=== PATIENT | female | born 1955 | race Caucasian/White ===

== ENCOUNTER 2018-01-16 15:10 | Emergency (ER) | payer OTHER, SELFPAY ==
[2018-01-16 15:12] VITALS: BP 123/68; PULSE 97; RESP 16; TEMP 36.7; O2SAT 94; BMI 33.1
[2018-01-16 16:40] VITALS: BP 126/74; BP 127/67; BP 143/78; PULSE 103; PULSE 88; PULSE 91
[2018-01-16] MEDS: 0.9% Normal Saline 1,000 ML 1000 ML IV (16:48)
[2018-01-16 16:54] LABS: Absolute Lymphocyte Count 3.23 X10^3/ul (0.83-4.51); Absolute Neutrophil Count 5.1 X10^3/uL (2.0-7.7); Basophil# 0.09 X10^3/uL; Basophil% 0.9 % (0-1); Eosinophil# 0.33 X10^3/uL; Eosinophils% 3.2 % (0-5); Hematocrit 41.1 % (37-47); Hemoglobin 13.9 g/dl (12.0-15.0); Lymphocyte # 3.23 X10^3/ul (4.0); Lymphocyte % 31.6 % (19-41); Mean Corp Hgb Conc 33.8 g/gl (32-36); Mean Corpuscular Hgb 29.7 pg (27.0-32.0); Mean Corpuscular Volume 87.8 fL (81-99); Mean Platelet Vol. 9.7 fl (6.2-12.0); Monocyte# 1.49 X10^3/uL; Monocyte% 14.6 % (0-10); Neutrophil # 5.06 X10^3/uL (2.7-7.7); Neutrophil % 49.4 % (47-70); Platelet Count 205 K/mm3 (150-450); RBC Distribution Width CV 15.8 % (11.6-14.6); RBC Distribution Width SD 50.3 fl (35.1-43.9); Red Blood Count 4.68 M/mm3 (4.2-5.4); White Blood Count 10.2 K/mm3 (4.4-11.0)
[2018-01-16 16:55] LABS: POSITIVE COUNT NO; POSITIVE DIFFERENTIAL NO; POSITIVE MORPHOLOGY NO
[2018-01-16 17:05] LABS: AST(SGOT) 45 U/L (15-37); Alanine Aminotransfer ALT/SGPT 45 U/L (13-56); Albumin, Serum 3.3 g/dL (3.2-5.0); Alkaline Phosphatase 96 U/L (45-117); Anion Gap 11 (5-15); BUN 35 mg/dL (7-18); BUN/Creat Ratio 18.1 RATIO (10-20); Calcium,Total 8.8 mg/dL (8.5-10.1); Chloride 98 mmol/L (98-107); Creatinine, Serum 1.93 mg/dL (0.55-1.02); EST Glomerular Filtration Rate 28 mL/min (>60); Est Glom Filt Rate - Afr Amer 34 mL/min (>60); Estimated Creatinine Clearance 28.29 ml/min; Globulin 4.3 g/dL (2.2-4.2); Glucose 96 mg/dL (74-106); Lipase 174 U/L (73-393); Potassium 4.1 mmol/L (3.5-5.1); Protein, Total 7.6 g/dL (6.4-8.2); Sodium Level 132 mmol/L (136-145)
[2018-01-16 18:04] VITALS: BP 130/70; PULSE 89; RESP 16; O2SAT 100
[2018-01-16] MEDS: 0.9% Normal Saline 1,000 ML 150 ML IV (18:04)
[2018-01-16 18:06] LABS: Bacteria 0 SEEN /hpf (None Seen); Mucous, Urine 0 SEEN /hpf (<or=2+); White Blood Cells 0 SEEN /hpf (0-5)
[2018-01-16 18:13] LABS: Color, Urine Yellow (Yellow); Glucose, Dipstick Normal (Normal); Ketone-Dipstick Negative (Negative); Leukocyte Esterase-Dipstick Negative /ul (Negative); Nitrite-Dipstick Negative (Negative); Occult Blood-Urine 25 /ul (Negative); Protein-Dipstick 100 mg/dl (Negative); Urine Bilirubin Dipstick Negative (Negative); Urine Clarity Clear (Clear); Urine Urobilinogen Normal (Normal)
[2018-01-16 18:26] LABS: Red Blood Cells-Urine 0-5 SEEN /hpf (0-5); Squamous Epithelial Cells - UA 0-5 SEEN /hpf (5-10)
--- NOTE | 2018-01-16 19:09 | ED.RN ---
CALLED LAB, 45 MORE MIN FOR C-DIFF. ENTERIC WON'T BE BACK UNTIL LATE TONIGHT OR TOMORROW.
--- NOTE | 2018-01-16 20:09 | ED.RN ---
LAB CALLS WITH CRITICAL RESULT, C-DIFF POSITIVE, DR. MULLINS MADE AWARE.
--- NOTE | 2018-01-16 20:18 | ED.VISSUMM ---
- ER Visit Summary Date of Service: 01/16/18 Chief Complaint: Diarrhea History of Present Illness: The patient is a 62 F who presents with 4-1/2 days of diarrhea. She did have one vomiting episode. She is recently had a cookout and states that there were numerous people there with diarrhea. She has history of chronic kidney disease and arthritis. Patient states she has lost about 9 pounds. Denies any recent antibiotics. No fevers. Physical Examination: Afebrile vital signs are stable Gen: Well-nourished well-developed Head: Normocephalic atraumatic Eyes: Perrl EOMI ENT: TMs clear no rhinorrhea moist mucous membranes Neck: Supple no lymphadenopathy no JVD nontender CVS: Regular rate rhythm no murmurs normal S1-S2 Respiratory: No distress clear to auscultation bilaterally chest nontender Abdomen: Soft nontender nondistended normal bowel sounds no masses Back: Nontender Extremity: Nontender no edema Skin: Normal color no rash Neuro: alert orientated ?3 CN II-XII intact normal strength sensation reflexes gait cerebellar Psych: Normal affect normal mood Test Results: White count 10.2. BUN of 35 and creatinine 1.93. Lipase 174 urinalysis normal. C. difficile is positive. Emergency Department Course and Treatment: Patient received IV fluids. She is going to be started on vancomycin. Patient will isolate herself at home to frequent handwashing and use a private bathroom. Return if worsening or concerns. Impression: 1. C. difficile diarrhea 2. Mild dehydration This note was generated with [employer] dictation software. It may contain incorrect words, spelling, and punctuation that were not noted in review of the chart prior to signing ED Disposition - Plan for ED Patient: Disposition: Acute Care Hospital [facility] Chief Complaint: Diarrhea Instructions: Clostridium difficile Infection Prescriptions: Vancomycin [Vancocin] 125 mg PO Q6H 14 Days #56 cap Referrals: Jabier Arboleda DO [Primary Care Provider] - 1 Week
--- NOTE | 2018-01-16 20:24 | ED.DCSUM_ITS ---
- ER Visit Summary Date of Service: 01/16/18 Chief Complaint: Diarrhea History of Present Illness: The patient is a 62 F who presents with 4-1/2 days of diarrhea. She did have one vomiting episode. She is recently had a cookout and states that there were numerous people there with diarrhea. She has history of chronic kidney disease and arthritis. Patient states she has lost about 9 pounds. Denies any recent antibiotics. No fevers. Physical Examination: Afebrile vital signs are stable Gen: Well-nourished well-developed Head: Normocephalic atraumatic Eyes: Perrl EOMI ENT: TMs clear no rhinorrhea moist mucous membranes Neck: Supple no lymphadenopathy no JVD nontender CVS: Regular rate rhythm no murmurs normal S1-S2 Respiratory: No distress clear to auscultation bilaterally chest nontender Abdomen: Soft nontender nondistended normal bowel sounds no masses Back: Nontender Extremity: Nontender no edema Skin: Normal color no rash Neuro: alert orientated ?3 CN II-XII intact normal strength sensation reflexes gait cerebellar Psych: Normal affect normal mood Test Results: White count 10.2. BUN of 35 and creatinine 1.93. Lipase 174 urinalysis normal. C. difficile is positive. Emergency Department Course and Treatment: Patient received IV fluids. She is going to be started on vancomycin. Patient will isolate herself at home to frequent handwashing and use a private bathroom. Return if worsening or concerns. Impression: 1. C. difficile diarrhea 2. Mild dehydration This note was generated with [employer]we[employer] dictation software. It may contain incorrect words, spelling, and punctuation that were not noted in review of the chart prior to signing ED Disposition - Plan for ED Patient: Disposition: Acute Care Hospital [facility] Chief Complaint: Diarrhea Instructions: Clostridium difficile Infection Prescriptions: Vancomycin [Vancocin] 125 mg PO Q6H 14 Days #56 cap Referrals: Jabier Arboleda DO [Primary Care Provider] - 1 Week
[2018-01-16 20:45] VITALS: BP 130/70; BP 130/80; PULSE 72; PULSE 76; RESP 16; O2SAT 100
== END 2018-01-16 20:46 | disposition short-term general hospital (02) ==
PROVIDERS: Emergency Medicine; Emergency Provider Emergency Medicine; Family Provider Family Medicine; PCP Family Medicine
DX: A04.72 Enterocolitis due to Clostridium difficile, not specified as recurrent (principal); E86.0 Dehydration; N18.3 Chronic kidney disease, stage 3 (moderate); M19.90 Unspecified osteoarthritis, unspecified site; Z79.899 Other long term (current) drug therapy
CPT/HCPCS: 80048; 80076; 81001; 83690; 85025; 87493; 87506; 96360; 96361; 99284; J7030; A4216

== ENCOUNTER 2019-09-06 14:45 | Inpatient (IN) | payer OTHER, SELFPAY ==
[2019-09-06] VITALS (16 sets, daily range): BP systolic 133–176; BP diastolic 69–109; PULSE 82–95; RESP 12–19; TEMP 36.2–36.4; O2SAT 96–100; BMI 32.5; BMI 32.6; BMI 33.2
--- NOTE | 2019-09-06 15:06 | CT_ITS ---
We are attempting to reach an attending provider to discuss findings. An addendum with communication details will be sent when the communication is complete. STUDY: CT BRAIN WITHOUT CONTRAST REASON FOR EXAM: Female, 64 years old. FLU LIKE SYMPTOMS X 2 DAYS. ALTERED LEVEL OF CONSCIOUSNESS RADIATION DOSAGE (If Supplied By Facility): CTDIvol = ( 44.99 ) mGy, DLP = ( 796.11 ) mGycm TECHNIQUE: Transaxial CT imaging of the brain was performed without administration of intravenous contrast material. Individualized dose optimization techniques were used for this CT. COMPARISON: No relevant priors. FINDINGS: There is minimal subcutaneous air of the left and right cheek regions, medial right orbit, and bilateral frontal scalp. Normal calvarium. Normal size ventricles and extra-axial spaces for the patient''s age. There is minimal pneumocephaly in the region of the sella turcica and medial right temporal fossa. Normal white matter tracts of the cerebral hemispheres. Normal basal ganglia and thalami. Normal brainstem. Normal cerebellum. There is no intracranial hemorrhage. There are no findings of an acute ischemic infarction. Normal visualized paranasal sinuses. CT/Brain/Head without Contrast IMPRESSION: There is minimal pneumocephaly of the parasellar region bilaterally in the medial right temporal fossa. There is minimal subcutaneous air of the left and right cheek regions, and medial right orbit, and bilateral frontal scalp. Electronically Signed: Judd Cooper MD at 17:06 EST , Service support ,
--- NOTE | 2019-09-06 15:07 | EKG12_ITS ---
Test Reason : Blood Pressure : / mmHG Vent. Rate : 084 BPM Atrial Rate : 084 BPM P-R Int : 192 ms QRS Dur : 102 ms QT Int : 428 ms P-R-T Axes : 073 -20 105 degrees QTc Int : 505 ms Normal sinus rhythm Possible Left atrial enlargement Nonspecific T wave abnormality Prolonged QT Abnormal ECG Confirmed by RADHA LOZANO, TIMOTHY ([id number]), assignment editor WHIT GRAHAM ([id number]) on 09/10/2019 9:05:38 AM Referred By: Isabella Rolon Confirmed By:TIMOTHY GARCIA MD
--- NOTE | 2019-09-06 15:10 | RAD_ITS ---
STUDY: X-RAY CHEST REASON FOR EXAM: Female, 64 years old. ALTERED MENTAL STATUS TECHNIQUE: Single AP portable view of the chest. COMPARISON: None. FINDINGS: EKG electrodes are seen. There is evidence of vascular congestion and CHF. Bibasilar atelectasis more prominent on the right side with blunting of the costophrenic angles. There is mild cardiac enlargement. Normal mediastinum and christine. Normal visualized pulmonary arteries. Normal visualized aortic arch and descending thoracic aorta. There are diffuse degenerative changes of the visualized thoracic spine. Status post bilateral shoulder replacement. There is no demonstrated abnormality of the visualized soft tissue structures of the upper abdomen. RAD/Chest 1 View (Portable) IMPRESSION: Mild cardiomegaly with the findings in keeping with CHF and bibasilar atelectasis and small effusions worse on the right side. Electronically Signed: Pop Pimentel, at 15:24 EST , Service support ,
--- NOTE | 2019-09-06 15:11 | ED.VISSUMM ---
- ER Visit Summary Date of Service: 09/06/19 Chief Complaint: [Weakness and mental status change] History of Present Illness: The patient is a 64 F [patient presents with complaint of generalized weakness and mental status change since this morning. Patient started yesterday with diarrhea. She was describing some abdominal discomfort yesterday. Patient does have history of C. difficile. Most of the history comes from her as she really does not give much in the way history. She denies any chest pain or abdominal pain. She denies any pain anywhere. She is not complained of urinary symptoms. Patient does have history of rheumatoid arthritis. Patient apparently does take narcotic pain medications and has had similar mental status change in the past that required Narcan. does not know if she took extra medication. Patient has had a slight cough.] Physical Examination: [HEENT-PERRLA, EOMI. Cranial nerves II through XII grossly intact. TMs clear. Mucous membranes moist. No adenopathy. Patient does open her eyes to voice and follows some simple commands. Cardiovascular-regular rate and rhythm without murmur or ectopy Lungs-clear to auscultation, chest wall stable without crepitus or subcu emphysema Abdomen-normoactive bowel sounds, soft, nontender, no rebound or rigidity, no peritoneal signs. Extremities-intact ?4, normal range of motion, normal pulses, atraumatic Test Results: [EKG obtained on arrival showed a sinus rhythm with a ventricular rate of 84 bpm with some nonspecific ST changes noted. No old EKGs available for comparison. CBC with differential showed an elevated white count of 27,000, hemoglobin 12, hematocrit 36, platelets 434. Chemistries unremarkable. BUN was 63 and creatinine 2.34. Lactate was 0.9. Troponin was 0.371. LFTs unremarkable. Chest x-ray showed some CHF otherwise nothing acute. The brain without contrast on my interpretation I do not appreciate any hemorrhage or anything acute however official report pending.] Emergency Department Course and Treatment: [She was given a 500 cc fluid bolus. Patient was given normal saline at 150 cc an hour. Was given 40 mEq of potassium chloride IV.] Treatment Plan: [Admit as etiology of leukocytosis unclear although I suspect it may be related to her diarrhea and possibility for C. difficile exist.] Disposition: [Admit] Impression: [Hyponatremia Mental status change Diarrhea Acute kidney injury] This note was generated with Dragon dictation software. It may contain incorrect words, spelling, and punctuation that were not noted in review of the chart prior to signing ED Disposition - Plan for ED Patient: Referrals: Jabier Arboleda DO [Primary Care Provider] -
[2019-09-06 16:06] LABS: Bedside Glucose 143 mg/dL (70-110)
[2019-09-06] MEDS: 0.9% Normal Saline 1,000 ML 150 ML IV ×2 (16:19→18:34)
[2019-09-06 16:28] LABS: Absolute Lymphocyte Count 0.84 X10^3/uL (0.83-4.51); Absolute Neutrophil Count 25.9 X10^3/uL (2.0-7.7); Basophil# 0.04 X10^3/uL; Basophil% 0.1 % (0-1); Hemoglobin 11.9 g/dL (12.0-15.0); Lymphocyte # 0.84 X10^3/ul (4.0); Lymphocyte % 3.1 % (19-41); Mean Corp Hgb Conc 33.1 g/dL (32-36); Mean Corpuscular Hgb 24.8 pg (27.0-32.0); Mean Corpuscular Volume 75.2 fL (81-99); Mean Platelet Vol. 9.1 fl (6.2-12.0); Monocyte# 0.59 X10^3/uL; Monocyte% 2.1 % (0-10); NRBC Flagged by Analyzer 0 % (0-5); Neutrophil # 25.88 X10^3/uL (2.7-7.7); Neutrophil % 94.2 % (47-70); POSITIVE DIFFERENTIAL YES; Platelet Count 434 K/mm3 (150-450); RBC Distribution Width CV 16.6 % (11.6-14.6); RBC Distribution Width SD 45.2 fl (35.1-43.9); Red Blood Count 4.79 M/mm3 (4.2-5.4); White Blood Count 27.5 K/mm3 (4.4-11.0)
[2019-09-06 16:39] LABS: Mucous, Urine 0 SEEN /hpf (<or=2+)
[2019-09-06 16:44] LABS: Color, Urine Yellow (Yellow); Glucose, Dipstick 50 mg/dl (Normal); Ketone-Dipstick Negative (Negative); Leukocyte Esterase-Dipstick Negative /ul (Negative); Nitrite-Dipstick Negative (Negative); Occult Blood-Urine 25 /ul (Negative); Protein-Dipstick 500 mg/dl (Negative); Specific Gravity, Urine 1.015 (1.002-1.030); Urine Bilirubin Dipstick Negative (Negative); Urine Clarity Clear (Clear); Urine Urobilinogen Normal (Normal); Urine pH 6.5 (5.0 - 8.0)
[2019-09-06 16:45] LABS: Differential Indicated SCAN CRITERIA MET
[2019-09-06 16:49] LABS: ALB/GLOB Ratio 0.3 RATIO (0.9-2.4); AST(SGOT) 26 U/L (15-37); Alanine Aminotransfer ALT/SGPT 19 U/L (13-56); Albumin, Serum 1.7 g/dL (3.2-5.0); Alkaline Phosphatase 123 U/L (45-117); Anion Gap 12 (5-15); BUN 63 mg/dL (7-18); BUN/Creat Ratio 26.9 RATIO (10-20); Calcium,Total 9.1 mg/dL (8.5-10.1); Chloride 84 mmol/L (98-107); Creatinine, Serum 2.34 mg/dL (0.55-1.02); EST Glomerular Filtration Rate 22 mL/min (>60); Est Glom Filt Rate - Afr Amer 27 mL/min (>60); Estimated Creatinine Clearance 23.62 ml/min; Globulin 4.9 g/dL (2.2-4.2); Glucose 128 mg/dL (74-106); Lactic Acid 0.9 mmol/L (0.4-1.9); Potassium 3.2 mmol/L (3.5-5.1); Protein, Total 6.6 g/dL (6.4-8.2); Sodium Level 116 mmol/L (136-145)
[2019-09-06 16:49] LABS: Anisocytosis RARE; Microcytosis RARE; Platelet Estimate SLT INC (ADEQ)
[2019-09-06 16:52] LABS: Amorphous Sediment 1+; Bacteria 1+ /hpf (None Seen); Red Blood Cells-Urine 0-5 SEEN /hpf (0-5); Squamous Epithelial Cells - UA 0-5 SEEN /hpf (5-10); White Blood Cells 0-5 SEEN /hpf (0-5)
--- NOTE | 2019-09-06 17:04 | HP.PCM_ITS ---
History of Present Illness Date of Admission: 09/06/19 Chief Complaint: altered mental status The patient is a 64 year old [employer] F with a past medical history of hypertension and CKD. She was admitted through the ED on 09/06/2019 with a complaint of altered mental status. History was mainly taken from as patient was not communicative. states patient started having diarrhea 1 day prior to admission. Diarrhea was quite profuse but had stopped by the day of admission. He noticed on the day of admission the patient was very confused and not her normal self and was not very responsive when spoken to even though she was alert. He denied having any fever or chills no any nausea vomiting. He noted that she had been coughing but it was nonproductive. He states that his daughters and sons in law have had a similar diarrhea condition and he thought it was due to the flu. Patient has had C. difficile in the past which was successfully treated. He denied any using any antibiotics recently he denied her complaining of any headache or neck pain recently. He did not/had not been eating and drinking well. In the ED, temperature was 97.5 Fahrenheit with blood pressure of 143/85, pulse rate of 93 respiratory rate of 16. She was saturating at 100% on room air. Sodium was 116 and potassium was 3.2 with bicarb of 20. Creatinine was 2.34 and lactic acid was 0.9. Initial troponin was 0.371 and ALP was 123. CBC showed white cell count of 27.5 a hemoglobin of 11.9 with platelets of 434. Chest x-ray showed mild cardiomegaly with findings in keeping with CHF and bibasilar atelectasis and small effusions worse on the right side. CT of the brain done showed minimal pneumonia Cefaly of the parasellar region bilaterally in the medial right temporal fossa with minimal subcutaneous air of the left and right cheek regions and medial right orbit and bilateral frontal scalp. She has been admitted to be managed for acute metabolic encephalopathy, hyponatremia, elevated troponin and KHUSHBOO on CKD. [] Past Medical History Allergies No Known Allergies Allergy (Verified 09/06/19 14:51) Home Medications: Ambulatory Orders Medication Instructions Recorded ALPRAZolam [Xanax] 1 mg PO TID PRN PRN 01/16/18 Amitriptyline HCl [Elavil] 10 mg PO QHS 01/16/18 Baclofen [Lioresal] 10 mg PO 4X/DAY 01/16/18 Etanercept [Enbrel] 50 mg SQ Q7D 01/16/18 Ferrous Gluconate [Iron] 1 tab PO TID 01/16/18 Fluoxetine [Prozac] 20 mg PO DAILY 01/16/18 Prednisone 2.5 mg PO BID 01/16/18 traMADol [Ultram (G)] 50 mg PO Q6H PRN PRN 01/16/18 Losartan Potassium [Cozaar] 25 mg PO DAILY 09/06/19 Oxycodone HCl 5 mg PO Q6H PRN PRN 09/06/19 Psychiatric History: No pertinent psych hx BREAK OUT MAN History: No pertinent BREAK OUT MAN history Lives: Spouse/ Significant Other Smoking Status: Never smoker Tobacco Use: Non-smoker - *Family History Maternal History Items: No pertinent history Paternal History Items: No pertinent history Review of Systems Constitutional: Reports: Anorexia, Malaise, Weakness, Fatigue. Denies: Chills, Fever Eyes: Denies: Blurred vision HEENT: Denies: Head Aches, Sinus Congestion, Sinus Drainage Cardiovascular: Denies: Chest Pain, Chest Pressure, Edema, Orthopnea Respiratory: Reports: Cough. Denies: Pleuritic Pain, Shortness of Breath, Shortness of breath upon exertion, Sputum production, Wheezing Gastrointestinal: Reports: Diarrhea. Denies: Abdominal Pain, Nausea, Vomiting Genitourinary: Denies: Dysuria Musculoskeletal: Denies: Joint Pain, Joint Tenderness Skin: Denies: Rash, Wounds Neurological: Reports: Confusion Hematologic/ Lymphatic: Denies: Easy Bruising, Easy Bleeding VTE Information - Inpt Only VTE Present on Admission: No VTE Pharm Prophylaxis ordered?: Yes - Physical Exam Vitals/I&O's: Vital Signs Temp Pulse Resp BP Pulse Ox 97.6 F L 90 18 150/83 H 98 09/06/19 16:31 09/06/19 16:31 09/06/19 16:31 09/06/19 16:31 09/06/19 16:31 Oxygen Delivery Method Room Air Weight: 208 lb 1.862 oz Body Mass Index (BMI) 32.5 Finger Stick Blood Glucose 143 General: Confused, Disoriented, Lethargic, Non-Cooperative HEENT: Atraumatic, PERRLA, EOMI, Normocephalic Oral: Dry Mucosa Neck: Supple, No JVD, Negative Carotid Bruits Lungs: Clear to auscultation, Normal air movement, No rhonchi, No wheeze, No rales Cardiovascular: Regular rate, Regular Rhythm, Normal S1, Normal S2, No murmurs Abdomen: Bowel Sounds Present, Soft, Non Tender, Non-Distended, No Hepato- splenomegaly Extremities: No clubbing, No cyanosis, No edema, Capillary Refill Less than 3 Seconds Skin: No rashes, No breakdown Musculoskeletal: No Tenderness to Palpation of Joints or Extremities Lymphatic: No Cervical, Supraclavicular, or Inguinal Adenopathy Neurological: Cranial nerves II-XII grossly intact, - - patient alert, confused, doesnt answer questions when asked. Kernig's and Brudzinski's signs are negative; moves all limbs spontaneously. Pupils equal and reactive to light. Microbiology Past 72 Hours 09/06/19 16:13 Mucosa - Nasopharyngeal Influenza Types A,B Direct FA (ANA) - Final Laboratory Results 09/06/19 16:00: WBC 27.5 H, RBC 4.79, Hgb 11.9 L, Hct 36.0 L, MCV 75.2 L, MCH 24.8 L, MCHC 33.1, RDW Std Deviation 45.2 H, RDW Coeff of Mika 16.6 H, Plt Count 434, MPV 9.1, Immature Gran % (Auto) 0.500, Neut % (Auto) 94.2 H, Lymph % (Auto) 3.1 L, Barbour % (Auto) 2.1, Eos % (Auto) 0.0, Baso % (Auto) 0.1, Absolute Neuts (auto) 25.9 H, Absolute Lymphs (auto) 0.84, Nucleated RBC % 0, Differential Comment SEE COMMENT, Diff Path Review May geovanna, Platelet Estimate SLT INC, Anisocytosis RARE, Microcytosis RARE 09/06/19 16:01: POC Glucose 143 H 09/06/19 16:09: Sodium 116 L*, Potassium 3.2 L, Chloride 84 L, Carbon Dioxide 20.0 L, Anion Gap 12, BUN 63 H, Creatinine 2.34 H, Estim Creat Clear Calc 23.62, Est GFR (MDRD) Af Amer 27 L, Est GFR (MDRD) Non-Af 22 L, BUN/Creatinine Ratio 26.9 H, Glucose 128 H, Calcium 9.1, Total Bilirubin 0.60, AST 26, ALT 19, Alkaline Phosphatase 123 H, Troponin I 0.371 H, Total Protein 6.6, Albumin 1.7 L , Globulin 4.9 H, Albumin/Globulin Ratio 0.3 L 09/06/19 16:09: Lactic Acid 0.9 09/06/19 16:33: Urine Color Yellow, Urine Clarity Clear, Urine pH 6.5, Ur Specific [place] 1.015, Urine Protein 500 H, Urine Glucose (UA) 50 H, Urine Ketones Negative, Urine Occult Blood 25 H, Urine Nitrite Negative, Urine Bilirubin Negative, Urine Urobilinogen Normal, Ur Leukocyte Esterase Negative, U rine RBC 0-5 SEEN, Urine WBC 0-5 SEEN, Ur Squamous Epith Cells 0-5 SEEN, Amorphous Sediment 1+, Urine Bacteria 1+, Urine Mucus 0 SEEN Diagnostic Data Brain CT 09/06/19 15:06 IMPRESSION: There is minimal pneumocephaly of the parasellar region bilaterally in the medial right temporal fossa. There is minimal subcutaneous air of the left and right cheek regions, and medial right orbit, and bilateral frontal scalp. Electronically Signed: Judd Cooper MD at 17:06 EST , Service support , ADDENDUM: 09/06/19 1724 IMPRESSION: There is minimal pneumocephaly of the parasellar region bilaterally in the medial right temporal fossa. There is minimal subcutaneous air of the left and right cheek regions, and medial right orbit, and bilateral frontal scalp. N.B. : The above information has been verbally conveyed by Judd Cooper MD to Jurgen Stephenson MD, , on 09/06/2019 17:17:29 (ET). Electronically Signed: Judd Cooper MD at 17:06 EST , Service support , Chest X-Ray 09/06/19 15:10 IMPRESSION: Mild cardiomegaly with the findings in keeping with CHF and bibasilar atelectasis and small effusions worse on the right side. Electronically Signed: Pop Pimentel, at 15:24 EST , Service support , Current Medications Sodium Chloride () 1,000 mls @ 150 mls/hr IV .Q6H40M [facility] Last Admin: 09/06/19 16:19 Dose: 150 mls/hr Documented by: Potassium Chloride () 10 meq in 100 mls @ 100 mls/hr IV BOLUS Q1H [facility] Stop: 09/06/19 20:59 Assessment/Plan 64 y/o admitted with a complaint of altered mental status 1. Acute metabolic encephalopathy * differentials include acute hyponatremia and infectious pathology * had diarrhea yesterday which has now resolved. Does have a history of C Diff * CXR showed mild cardiomegaly with findings in keeping with CHF and bibasilar atelectasis and small effusions worse on right side * EKG showed no acute ST changes * admit to ICU * check stat BNP * wbc is elevated at 27.5; UA shows 1+ bacteria * patient given one dose of PO vancomycin ni ED o/a of history of C Diff * consult critical care * CT brain showed minimal pneumocephaly of parasellar region bilaterally in medial right temporal fossa nd minimal subcutaneous air of left and right cheeck regions, medial right orbit, bilateral frontal scalp. * start on IV vancomycin and cefepime * get blood and urine cultures; check respiratory panel * BNP elevated, so will diurese, and hold off on IV fluids. * 2. Acute hyponatremia * admitted with a history of Diarrhea and has not been eating and drinking well; diarrhea has resolved. BNP is markedly elevated at 2402, so it is pointing more towards a hypotonic, hypervolemic hyponatremia. * Chest x-ray however shows evidence of mild CHF. I independently reviewed CXR and there is evidence of heart failure and pulmonary congestion as well as cardiomegaly * Will check serum osmolality and urine sodium reviewed osmolality. * stop IVF and start IV lasix 40mg bid. * Consult nephrology- Dr Franks verbally informed * Check BMP every 4 hourly. Aim is to correct sodium by 8 to 10 mmol/L over the next 24 hours. * 3. KHUSHBOO on CKD: * Creatinine is 2.34 with a baseline of 1.9. She has a fistula placed in the left forearm but this is never been used. * IVF stopped o/a of acute heart failure. 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 Last baseline from 2018 is 1.9 here; I doubt this is a true baseline she has an AV fistula. * if CR doesnt trend down, will get renal USG. Check FeUrea * nephrology consult o./a of acute hyponatremia * 4. Hypokalemia: K is 3.2 Will replace and monitor 5. Non anion gap metabolic acidosis * Bicarb is 20. Anion gap is 12. This is likely due to KHUSHBOO on CKD. * Will monitor. If it does not improve, patient will benefit from bicarb. * 6. Elevated troponin * Initial troponin 0 0.371. * EKG showed no acute ST changes. Patient has CKD, true baseline is not known, as she has an AV fistula in [facility]. From our records, her baseline is 1.9 but I am doubtful that a fistula will be placed for baseline of 1.9. This is from 2018 and it is likely that her true baseline is higher. * Cycle troponins and consult cardiology-consult placed for Dr. Reed. I discussed case with him and he thinks that it may be due to decreased clearance from CKD. Per discussion, to hold off on Lovenox for now and if troponins trend up some more, then will manage for non-STEMI. * check lipid panel and A1C * acute heart failure is also likely contributing * 7. Acute Heart failure of unknown EF * CXR shows signs of heart failure. No echo on file * BNP markedly elevated at 2402. Hyponatremia may be due to hypervolemia,;though she did have some diarrhea yesterday, this has now resolved. . * will stop IVF and diurese with IVF lasiix 40mg bid. monitor intake and output * fluid restriction to 1500cc daily. * Will order 2D echo. * 8. Hypertension: On losartan. 10. Rheumatoid arthritis: on etanercept. DVT prophylaxis: Lovenox renally dosed. CODE STATUS: Full code * Patient's counseled extensively about different types of CODE STATUS including full code, DNR CCA and DNR CCA. Patient elects to be full code. Total [id number] time 17 minutes. Code Visit Inpatient E&M: 80469 Init Hosp L3 Procedures: 19262 Advncd Care Plan 30 Min
[2019-09-06] MEDS: Potassium Chloride 10mEq/100mL 10 MEQ/100 ML IV.SOLN. 100 MEQ IV BOLUS ×4 (17:52→21:34)
[2019-09-06 18:48] LABS: BNP,B-Type NATRIURETIC PEPTIDE 2402.2 pg/mL (0-100)
[2019-09-06 19:41] LABS: Osmolality, Serum 264 mOsm/KG (280-301)
[2019-09-06 19:58] LABS: Anion Gap 13 (5-15); BUN 59 mg/dL (7-18); BUN/Creat Ratio 26.8 RATIO (10-20); Calcium,Total 8.9 mg/dL (8.5-10.1); Chloride 86 mmol/L (98-107); Cholesterol 231 mg/dL (200); EST Glomerular Filtration Rate 24 mL/min (>60); Est Glom Filt Rate - Afr Amer 29 mL/min (>60); Estimated Creatinine Clearance 24.18 ml/min; Glucose 131 mg/dL (74-106); High Density Lipoprotein 95 mg/dL; Potassium 3.4 mmol/L (3.5-5.1); Sodium Level 118 mmol/L (136-145); Triglycerides 73 mg/dL; Very Low Density Lipoprotein 15 mg/dL (5-40)
[2019-09-06] MEDS: Furosemide 40 MG/4 ML Vial IV (20:28)
[2019-09-06 21:05] LABS: Urine Sodium 38 mmol/L (Not Establ.)
[2019-09-06 21:23] LABS: Osmolality, Urine 350 mOsm/KG
[2019-09-06] MEDS: Acetaminophen 325 MG Tablet 650 MG PO (22:04)
[2019-09-06 23:35] LABS: BUN 59 mg/dL (7-18); BUN/Creat Ratio 26.7 RATIO (10-20); Calcium,Total 8.5 mg/dL (8.5-10.1); Chloride 87 mmol/L (98-107); Creatinine, Serum 2.21 mg/dL (0.55-1.02); EST Glomerular Filtration Rate 24 mL/min (>60); Est Glom Filt Rate - Afr Amer 29 mL/min (>60); Estimated Creatinine Clearance 24.07 ml/min; Glucose 114 mg/dL (74-106); Potassium 4.1 mmol/L (3.5-5.1); Sodium Level 117 mmol/L (136-145)
[2019-09-06 23:36] LABS: Anion Gap 13 (5-15)
[2019-09-07] VITALS (31 sets, daily range): BP systolic 135–194; BP diastolic 54–95; PULSE 79–103; RESP 13–20; TEMP 35.8–36.8; O2SAT 95–99
[2019-09-07] MEDS: hydrALAZINE 20 MG/ML Vial 10 MG IV ×3 (01:25→12:47)
[2019-09-07] MEDS: Baclofen 10 MG Tablet PO (01:25)
[2019-09-07] MEDS: Acetaminophen 325 MG Tablet 650 MG PO ×3 (03:30→19:11)
[2019-09-07] MEDS: oxyCODONE 5 MG Tablet PO ×2 (04:06→12:51)
--- NOTE | 2019-09-07 05:55 | ECHOD_ITS ---
Reason For Study: CHF Procedure This was a 2D Doppler, Color Flow transthoracic echocardiogram. Exam performed portable in ICU/CCU. Left Ventricle Normal LV size. Concentric left ventricular hypertrophy. Left ventricular systolic function is normal. The estimated ejection fraction is 55-60 %. No regional wall motion abnormalities noted. Right Ventricle Normal right ventricle. Normal systolic function. Atria The left atrium is moderately enlarged. The right atrium is moderately enlarged. Mitral Valve The mitral valve is structurally normal. No prolapse or stenosis seen. Mild-Moderate (1-2+) mitral valve insufficiency. Tricuspid Valve Normal tricuspid valve. Mild (1+) tricuspid valve insufficiency. Pulmonary artery systolic pressure is 54 mmHg. Aortic Valve Normal aortic valve. No aortic valve insufficiency. Pulmonic Valve The pulmonic valve is not well visualized. MMode/2D Measurements & Calculations LVIDd: 4.9 cm IVSd: 2.5 cm Ao root diam: 3.6 cm LVIDs: 3.7 cm LVPWd: 1.9 cm RVDd: 3.6 cm FS: 24.0 % LAV(MOD-bp): 94.6 ml SV(MOD-sp4): 48.1 ml LVAd ap4: 29.9 cm2 LAV(MOD-bp) Indexed: 46.5 ml/m2 EDV(MOD-sp4): 93.6 ml LAV(MOD-sp2): 104.6 ml EDV(sp4-el): 94.4 ml LAV(MOD-sp4): 77.7 ml LVAs ap4: 18.6 cm2 ESV(MOD-sp4): 45.5 ml ESV(sp4-el): 42.8 ml EF(MOD-sp4): 51.4 % EF(sp4-el): 54.7 % SV(sp4-el): 51.6 ml LA dimension(2D): 5.1 cm LA A4 area: 24.6 cm2 RA A4 area: 18.6 cm2 Doppler Measurements & Calculations MV E max elliott: 115.4 cm/sec Lat Peak E' Elliott: 7.4 cm/sec Med Peak E' Elliott: 4.7 cm/sec MV A max elliott: 55.0 cm/sec E/E' lat: 15.7 E/E' med: 24.5 MV E/A: 2.1 Ao V2 max: 180.5 cm/sec LV V1 max: 147.6 cm/sec PA V2 max: 108.8 cm/sec Ao max P.0 mmHg LV V1 max P.7 mmHg Ao V2 mean: 121.5 cm/sec Ao mean P.7 mmHg Ao V2 VTI: 25.7 cm TR max elliott: 334.4 cm/sec TR max P.7 mmHg Interpretation Summary Normal LV size. Left ventricular systolic function is normal. The estimated ejection fraction is 55-60 %. The left atrium is moderately enlarged. Mild-Moderate (1-2+) mitral valve insufficiency. Mild (1+) tricuspid valve insufficiency. No aortic valve insufficiency. Pulmonary artery systolic pressure is 54 mmHg. Mild Pulmonary HTN Ordering Physician: Isabella Rolon Referring Physician: Jabier Arboleda Performed By: Roshni Dougherty, BISHNU, RVT
--- NOTE | 2019-09-07 06:17 | CON.PCM_ITS ---
Reason for Consult Date of Consultation: 09/07/19 Reason for Consultation: Metabolic encephalopathy History of Present Illness: The patient is a 64-year-old female, with a history as outlined below, who presented to the emergency department in the setting of generalized malaise, weakness and altered mentation. The patient's medical history is a bit unclear, as the patient is confused and there is no family available at the bedside to provide additional history. She apparently has a history of chronic kidney disease, and for reasons that are not entirely clear to me, currently has a fistula in place. She does report a recent history of diarrhea, which has now resolved. She denies any recent antimicrobial use. She is alert and oriented to person and place. She is requesting something to drink. Of note, the patient does appear to be on multiple sedating medications in her home en vironment including Xanax, Elavil, baclofen, tramadol and oxycodone. On presentation to the emergency department, the patient was noted to be afebrile and hemodynamically stable. She was maintaining appropriate oxygen saturations on room air. Laboratory evaluation revealed an elevated white blood cell count to 27,000. There was evidence of microcytic anemia as well. Chemistry profile was notable for a sodium of 118, potassium of 3.4, chloride of 86, bicarbonate of 19 and elevated creatinine to 2.34. BNP was elevated to 2402. Troponin was elevated to 0.360. UA was negative for nitrites and leukocyte esterase. CT head reportedly revealed minimal pneumocephaly of the parasellar region bilaterally. Plain film chest x-ray revealed pulmonary vascular congestion and blunting of the costophrenic angles bilaterally. There appeared to be potential loculated effusion tracking up the right lateral chest wall. The patient was initially given supplemental IV fluids along with potassium repletion. The patient was subsequently admitted to the medical intensive care unit for further management. Despite having altered mentation, it appears that the patient did receive baclofen and oxycodone overnight. And although she was initially treated in the emergency department with supplemental IV fluids, that order was discontinued and the patient was placed on IV Lasix overnight. UPDATE: I was later able to speak with the patient's to obtain additional medical history. The patient was apparently seen a firearms sales associate in [facility] previously and underwent a kidney biopsy, which revealed AA amyloidosis. Apparently, the patient's renal function had continued to decline to the point where she was nearly end-stage renal. Therefore, a fistula was placed in preparation for the initiation of dialysis support. However, the patient's kidney function subsequently improved. She never did require dialysis support. The patient also apparently has a history of rheumatoid arthritis, but has never been diagnosed with any form of cardiomyopathy in the past. He stated that the patient began to feel ill this past and was noted to have a self- limited diarrheal illness that lasted approximately 24 hours. The patient had decreased p.o. intake during that time. He does report that in the past she has developed altered mentation similar to this presentation in the setting of worsening renal insufficiency and the use of sedating medications in her home environment. Past Medical History Allergies No Known Allergies Allergy (Verified 09/06/19 14:51) Home Medications: Ambulatory Orders Medication Instructions Recorded ALPRAZolam [Xanax] 1 mg PO TID PRN PRN 01/16/18 Amitriptyline HCl [Elavil] 10 mg PO QHS 01/16/18 Baclofen [Lioresal] 10 mg PO 4X/DAY 01/16/18 Etanercept [Enbrel] 50 mg SQ Q7D 01/16/18 Ferrous Gluconate [Iron] 1 tab PO TID 01/16/18 Fluoxetine [Prozac] 20 mg PO DAILY 01/16/18 Prednisone 2.5 mg PO BID 01/16/18 traMADol [Ultram (G)] 50 mg PO Q6H PRN PRN 01/16/18 Losartan Potassium [Cozaar] 25 mg PO DAILY 09/06/19 Oxycodone HCl 5 mg PO Q6H PRN PRN 09/06/19 Psychiatric History: No pertinent psych hx [employer] History: No pertinent [employer] history Lives: Spouse/ Significant Other Smoking Status: Never smoker Tobacco Use: Non-smoker - *Family History Maternal History Items: No pertinent history Paternal History Items: No pertinent history Review of Systems Constitutional: Reports: Malaise, Weakness, Fatigue Eyes: Denies: Blurred vision, Double vision HEENT: Denies: Head Aches, Sinus Congestion, Sinus Drainage Cardiovascular: Denies: Chest Pain, Palpitations Respiratory: Denies: Cough, Shortness of Breath Gastrointestinal: Reports: Diarrhea - Now resolved Genitourinary: Denies: Dysuria Musculoskeletal: Reports: Joint Pain Skin: Denies: Rash, Wounds Neurological: Denies: Numbness, Tingling, Focal weakness Psychiatric: Denies: Anxiety, Depression, Homicidal Ideations, Suicidal Ideations Hematologic/ Lymphatic: Reports: Anemia Patient Problems: Active and Suspected Problems Hyponatremia (Acute) Objective: The patient's most recent lab work, culture data and imaging studies have all been personally reviewed. - Physical Exam Vitals/I&O's: Vital Signs Temp Pulse Resp BP Pulse Ox 97.6 F L 95 20 H 165/80 H 95 09/07/19 04:00 09/07/19 06:04 09/07/19 06:00 09/07/19 06:04 09/07/19 06:00 Oxygen Delivery Method Room Air Weight: 205 lb 11.06 oz Body Mass Index (BMI) 33.2 Finger Stick Blood Glucose 143 Intake and Output for Last 24 Hours 09/05/19 09/06/19 09/07/19 23:59 23:59 23:59 Intake Total 1542.5 / 1542.5 550 / 550 Output Total 600 / 1200 1450 / 1450 Balance 942.5 / 342.5 -900 / -900 General: Alert, Confused HEENT: Atraumatic, PERRLA, Normocephalic Oral: No Gingival or Mucosal Lesions/ Ulcerations Neck: Supple, No Nodes, Trachea Midline Lungs: Diminished, - - Poor patient dependent inspiratory effort with bibasilar rales present. Cardiovascular: Regular rate, Regular Rhythm, Normal S1, Normal S2, No murmurs Abdomen: Bowel Sounds Present, Soft, Non Tender, Obese Extremities: No clubbing, No cyanosis, - - Bilateral lower extremity pitting edema Skin: - - Pretibial venous stasis changes Musculoskeletal: No Muscle Wasting Lymphatic: No Cervical, Supraclavicular, or Inguinal Adenopathy Neurological: - - No focal neurological deficits. Psych/Mental Status: Flat Affect Labs (Last 48 Hours) 09/06/19 09/06/19 09/06/19 16:00 16:00 16:01 WBC 27.5 H RBC 4.79 Hgb 11.9 L Hct 36.0 L MCV 75.2 L MCH 24.8 L MCHC 33.1 RDW Std Deviation 45.2 H RDW Coeff of Mika 16.6 H Plt Count 434 MPV 9.1 Immature Gran % (Auto) 0.500 Neut % (Auto) 94.2 H Lymph % (Auto) 3.1 L [place] % (Auto) 2.1 Eos % (Auto) 0.0 Baso % (Auto) 0.1 Absolute Neuts (auto) 25.9 H Absolute Lymphs (auto) 0.84 Nucleated RBC % 0 Differential Comment SEE COMMENT Diff Path Review May foll Platelet Estimate SLT INC Anisocytosis RARE Microcytosis RARE Sodium Potassium Chloride Carbon Dioxide Anion Gap BUN Creatinine Estim Creat Clear Calc Est GFR (MDRD) Af Amer Est GFR (MDRD) Non-Af BUN/Creatinine Ratio Glucose Serum Osmolality Lactic Acid Calcium Total Bilirubin AST ALT Alkaline Phosphatase Troponin I B-Natriuretic Peptide 2402.2 H Total Protein Albumin Globulin Albumin/Globulin Ratio Triglycerides Cholesterol LDL Cholesterol VLDL Cholesterol HDL Cholesterol Urine Color Urine Clarity Urine pH Ur Specific [place] Urine Protein Urine Glucose (UA) Urine Ketones Urine Occult Blood Urine Nitrite Urine Bilirubin Urine Urobilinogen Ur Leukocyte Esterase Urine RBC Urine WBC Ur Squamous Epith Cells Amorphous Sediment Urine Bacteria Urine Mucus Urine Osmolality Ur Random Sodium Urine Creatinine POC Glucose 143 H 09/06/19 09/06/19 09/06/19 16:09 16:09 16:33 WBC RBC Hgb Hct MCV MCH MCHC RDW Std Deviation RDW Coeff of Mika Plt Count MPV Immature Gran % (Auto) Neut % (Auto) Lymph % (Auto) [place] % (Auto) Eos % (Auto) Baso % (Auto) Absolute Neuts (auto) Absolute Lymphs (auto) Nucleated RBC % Differential Comment Diff Path Review Platelet Estimate Anisocytosis Microcytosis Sodium 116 L* Potassium 3.2 L Chloride 84 L Carbon Dioxide 20.0 L Anion Gap 12 BUN 63 H Creatinine 2.34 H Estim Creat Clear Calc 23.62 Est GFR (MDRD) Af Amer 27 L Est GFR (MDRD) Non-Af 22 L BUN/Creatinine Ratio 26.9 H Glucose 128 H Serum Osmolality Lactic Acid 0.9 Calcium 9.1 Total Bilirubin 0.60 AST 26 ALT 19 Alkaline Phosphatase 123 H Troponin I 0.371 H B-Natriuretic Peptide Total Protein 6.6 Albumin 1.7 L Globulin 4.9 H Albumin/Globulin Ratio 0.3 L Triglycerides Cholesterol LDL Cholesterol VLDL Cholesterol HDL Cholesterol Urine Color Yellow Urine Clarity Clear Urine pH 6.5 Ur Specific [place] 1.015 Urine Protein 500 H Urine Glucose (UA) 50 H Urine Ketones Negative Urine Occult Blood 25 H Urine Nitrite Negative Urine Bilirubin Negative Urine Urobilinogen Normal Ur Leukocyte Esterase Negative Urine RBC 0-5 SEEN Urine WBC 0-5 SEEN Ur Squamous Epith Cells 0-5 SEEN Amorphous Sediment 1+ Urine Bacteria 1+ Urine Mucus 0 SEEN Urine Osmolality Ur Random Sodium Urine Creatinine POC Glucose 09/06/19 09/06/19 09/06/19 19:28 19:28 19:28 WBC RBC Hgb Hct MCV MCH MCHC RDW Std Deviation RDW Coeff of Mika Plt Count MPV Immature Gran % (Auto) Neut % (Auto) Lymph % (Auto) [place] % (Auto) Eos % (Auto) Baso % (Auto) Absolute Neuts (auto) Absolute Lymphs (auto) Nucleated RBC % Differential Comment Diff Path Review Platelet Estimate Anisocytosis Microcytosis Sodium 118 L* Potassium 3.4 L Chloride 86 L Carbon Dioxide 19.0 L Anion Gap 13 BUN 59 H Creatinine 2.20 H Estim Creat Clear Calc 24.18 Est GFR (MDRD) Af Amer 29 L Est GFR (MDRD) Non-Af 24 L BUN/Creatinine Ratio 26.8 H Glucose 131 H Serum Osmolality 264 L Lactic Acid Calcium 8.9 Total Bilirubin AST ALT Alkaline Phosphatase Troponin I 0.360 H B-Natriuretic Peptide Total Protein Albumin Globulin Albumin/Globulin Ratio Triglycerides 73 Cholesterol 231 H LDL Cholesterol 121 VLDL Cholesterol 15 HDL Cholesterol 95 Urine Color Urine Clarity Urine pH Ur Specific [place] Urine Protein Urine Glucose (UA) Urine Ketones Urine Occult Blood Urine Nitrite Urine Bilirubin Urine Urobilinogen Ur Leukocyte Esterase Urine RBC Urine WBC Ur Squamous Epith Cells Amorphous Sediment Urine Bacteria Urine Mucus Urine Osmolality Ur Random Sodium Urine Creatinine POC Glucose 09/06/19 09/06/19 09/06/19 20:45 20:45 20:45 WBC RBC Hgb Hct MCV MCH MCHC RDW Std Deviation RDW Coeff of Mika Plt Count MPV Immature Gran % (Auto) Neut % (Auto) Lymph % (Auto) [place] % (Auto) Eos % (Auto) Baso % (Auto) Absolute Neuts (auto) Absolute Lymphs (auto) Nucleated RBC % Differential Comment Diff Path Review Platelet Estimate Anisocytosis Microcytosis Sodium Potassium Chloride Carbon Dioxide Anion Gap BUN Creatinine Estim Creat Clear Calc Est GFR (MDRD) Af Amer Est GFR (MDRD) Non-Af BUN/Creatinine Ratio Glucose Serum Osmolality Lactic Acid Calcium Total Bilirubin AST ALT Alkaline Phosphatase Troponin I B-Natriuretic Peptide Total Protein Albumin Globulin Albumin/Globulin Ratio Triglycerides Cholesterol LDL Cholesterol VLDL Cholesterol HDL Cholesterol Urine Color Urine Clarity Urine pH Ur Specific [place] Urine Protein Urine Glucose (UA) Urine Ketones Urine Occult Blood Urine Nitrite Urine Bilirubin Urine Urobilinogen Ur Leukocyte Esterase Urine RBC Urine WBC Ur Squamous Epith Cells Amorphous Sediment Urine Bacteria Urine Mucus Urine Osmolality 350 Ur Random Sodium 38 Urine Creatinine 38.40 POC Glucose 09/06/19 09/06/19 09/06/19 22:04 22:04 23:05 WBC RBC Hgb Hct MCV MCH MCHC RDW Std Deviation RDW Coeff of Mika Plt Count MPV Immature Gran % (Auto) Neut % (Auto) Lymph % (Auto) [place] % (Auto) Eos % (Auto) Baso % (Auto) Absolute Neuts (auto) Absolute Lymphs (auto) Nucleated RBC % Differential Comment Diff Path Review Platelet Estimate Anisocytosis Microcytosis Sodium Cancelled 117 L* Potassium Cancelled 4.1 Chloride Cancelled 87 L Carbon Dioxide Cancelled 17.0 L Anion Gap Cancelled 13 BUN Cancelled 59 H Creatinine Cancelled 2.21 H Estim Creat Clear Calc Cancelled 24.07 Est GFR (MDRD) Af Amer Cancelled 29 L Est GFR (MDRD) Non-Af Cancelled 24 L BUN/Creatinine Ratio Cancelled 26.7 H Glucose Cancelled 114 H Serum Osmolality Lactic Acid Calcium Cancelled 8.5 Total Bilirubin AST ALT Alkaline Phosphatase Troponin I 0.317 H B-Natriuretic Peptide Total Protein Albumin Globulin Albumin/Globulin Ratio Triglycerides Cholesterol LDL Cholesterol VLDL Cholesterol HDL Cholesterol Urine Color Urine Clarity Urine pH Ur Specific [place] Urine Protein Urine Glucose (UA) Urine Ketones Urine Occult Blood Urine Nitrite Urine Bilirubin Urine Urobilinogen Ur Leukocyte Esterase Urine RBC Urine WBC Ur Squamous Epith Cells Amorphous Sediment Urine Bacteria Urine Mucus Urine Osmolality Ur Random Sodium Urine Creatinine POC Glucose Microbiology 09/06/19 16:13 Mucosa - Nasopharyngeal Influenza Types A,B Direct FA (ANA) - Final Clinical Impression(s) from Imaging Studies Brain CT 09/06/19 15:06 IMPRESSION: There is minimal pneumocephaly of the parasellar region bilaterally in the medial right temporal fossa. There is minimal subcutaneous air of the left and right cheek regions, and medial right orbit, and bilateral frontal scalp. Electronically Signed: Judd Cooper MD at 17:06 EST , Service support , ADDENDUM: 09/06/19 1724 IMPRESSION: There is minimal pneumocephaly of the parasellar region bilaterally in the medial right temporal fossa. There is minimal subcutaneous air of the left and right cheek regions, and medial right orbit, and bilateral frontal scalp. N.B. : The above information has been verbally conveyed by Judd Cooper MD to Jurgen Stephenson MD, MD, on 09/06/2019 17:17:29 (ET). Electronically Signed: Judd Cooper MD at 17:06 EST , Service support , Chest X-Ray 09/06/19 15:10 IMPRESSION: Mild cardiomegaly with the findings in keeping with CHF and bibasilar atelectasis and small effusions worse on the right side. Electronically Signed: Pop Pimentel, at 15:24 EST , Service support , Current Medications Acetaminophen (Tylenol) 650 mg PO Q6H PRN PRN PRN Reason: Pain Score 1-3/Temp > 100.7 F Last Admin: 09/07/19 03:30 Dose: 650 mg Documented by: Enoxaparin Sodium (Lovenox) 30 mg SC DAILY [facility] Furosemide (Lasix) 40 mg IV BID@1000,1800 [facility] Last Admin: 09/06/19 20:28 Dose: 40 mg Documented by: Glucagon () 1 mg IM .X1 PRN PRN Reason: Hypoglycemia Hydralazine HCl (Apresoline Iv) 10 mg IV Q4H PRN PRN PRN Reason: SBP >160 Last Admin: 09/07/19 06:04 Dose: 10 mg Documented by: Cefepime HCl 1 gm/ Sodium (Chloride) 50 mls @ 100 mls/hr IV QHS [facility] Last Infusion: 09/07/19 00:08 Dose: Infused Documented by: Sodium Chloride () 250 mls @ 15 mls/hr IV .[id number] PRN PRN Reason: Saline Flush Sodium Chloride () 250 mls @ 15 mls/hr IV .[id number] PRN PRN Reason: Additional IVPB Infusion Morphine Sulfate () 4 mg IV Q4H PRN PRN PRN Reason: Pain Score 4-10/10 Nitroglycerin (Nitrostat) 0.4 mg SUBLINGUAL Q5M PRN PRN Reason: CARDIAC/CHEST PAIN Ondansetron HCl (Zofran) 4 mg IV Q8H PRN PRN PRN Reason: NAUSEA/VOMITING Prednisone () 2.5 mg PO BIDCM RUBIO Sodium Chloride () 10 - 40 ml IV UD PRN PRN Reason: SALINE FLUSH Assessment/Plan Active and Suspected Problems Hyponatremia (Acute) RECOMMENDATIONS: 1. Hold all sedating medications at this time. 2. Await repeat morning labs. 3. Obtain echocardiogram. 4. Await nephrology consultation. 5. Obtain noncontrasted chest CT. IMPRESSIONS: 1. Acute metabolic/toxic encephalopathy I do suspect that the patient's altered mentation may be secondary to worsening renal insufficiency and concurrent use of sedating medications, with inability to clear metabolites. In addition, given that amyloidosis has the ability to affect multi systems, it is possibility that this may be contributing to her altered mentation as well. I cannot discount the possibility of infectious contributions either. At this time, I recommend continuing empiric antimicrobial therapy, pending infectious work-up. I would strongly recommend that all potential sedating medications be placed on hold at this time. 2. Non-ST segment elevation NE/possible underlying cardiomyopathy The patient does appear to be clinically volume overloaded on examination. While she has never previously been identified as having any cardiac pathology, given her diagnosis of amyloidosis, it is certainly possible that she may have developed a cardiomyopathy. I agree with obtaining an echocardiogram for further evaluation. The patient may require cardiology consultation. She is currently on twice daily Lasix given her elevated BNP level. 3. Abnormal chest x-ray The patient's presenting chest x-ray did reveal evidence of pulmonary vascular congestion and blunting of the costophrenic angles. I am most concerned about what appears to be a possible loculated effusion tracking up the lateral chest wall of the right hemithorax. Therefore, I am going to obtain a noncontrasted chest CT for further evaluation. 4. Acute on chronic kidney disease/hyponatremia/hypochloremia The patient has been followed by a firearms sales associate in [facility]. She was previously diagnosed with AA amyloidosis, via kidney biopsy. Nephrology is currently consulted to assist with management. While the patient did initially receive supplemental IV fluids in the ED, she was subsequently placed on diuretic therapy over concerns for a volume overloaded state. At this time, the patient does appear to be clinically volume overloaded. However, repeat morning labs are currently pending. 5. History of AA amyloidosis/hypertension/rheumatoid arthritis/chronic pain syndrome/chronic prednisone dependency Complicates care, management, recovery and prognosis. Continue to hold sedating medications at this time. Okay to continue baseline low-dose prednisone therapy. This note was generated with [employer] dictation software. It may contain incorrect words, spelling, and punctuation that were not noted in checking the note before signing. Code Visit Inpatient E&M: 20333 Init Hosp L3
--- NOTE | 2019-09-07 06:53 | CT_ITS ---
STUDY: CT CHEST WITHOUT CONTRAST REASON FOR EXAM: Female, 64 years old. Weakness, possible loculated right pleural effusion, metabolic encephalopathy, renal disease., RADIATION DOSAGE (If Supplied By Facility): CTDIvol = ( 18.39 ) mGy, DLP = ( 634.20 ) mGycm TECHNIQUE: Transaxial imaging was performed without the administration of intravenous contrast material. Individualized dose optimization techniques were used for this CT. COMPARISON: None. FINDINGS: The examination is limited due to significant motion artifacts. There is prominence of the pulmonary vasculature. There are infiltrates/atelectasis in both lower lobes worse on the right side. There is small right pleural effusion which could be loculated at the level of the minor fissure. There is small left pleural effusion. There is moderate cardiomegaly. There is no evidence of pericardial effusion. There are prominent nodes in the anterior mediastinum, aortopulmonic window and subcarinal region. The hilar regions are also prominent difficult to accurately evaluate without contrast. There are mild atherosclerotic calcifications of the aortic arch. There are multi-level degenerative changes of the thoracic spine. The visualized portions of the upper abdomen demonstrate small low-density lesions/cysts in the liver better evaluated by ultrasound. CT/Chest without Contrast IMPRESSION: 1. Cardiomegaly and pulmonary venous congestion. 2. Bilateral lower lobes infiltrate/atelectasis. 3. Small bilateral pleural effusions larger on the right side which could be loculated on the right side. 4. Mediastinal lymphadenopathy. 5. Follow-up examination following treatment with contrast might be of further value. 6. Liver lesions likely representing cysts. Electronically Signed: Bartolome Gaona MD at 8:50 EST Tel , Service support ,
[2019-09-07 08:11] LABS: Absolute Lymphocyte Count 0.97 X10^3/uL (0.83-4.51); Absolute Neutrophil Count 21.1 X10^3/uL (2.0-7.7); Basophil# 0.03 X10^3/uL; Basophil% 0.1 % (0-1); Eosinophil# 0.02 X10^3/uL; Eosinophils% 0.1 % (0-5); Hematocrit 35.6 % (37-47); Hemoglobin 12.1 g/dL (12.0-15.0); Lymphocyte # 0.97 X10^3/ul (4.0); Lymphocyte % 4.2 % (19-41); Mean Corpuscular Hgb 25.6 pg (27.0-32.0); Mean Corpuscular Volume 75.3 fL (81-99); Mean Platelet Vol. 9.2 fl (6.2-12.0); Monocyte# 0.62 X10^3/uL; Monocyte% 2.7 % (0-10); NRBC Flagged by Analyzer 0 % (0-5); Neutrophil # 21.07 X10^3/uL (2.7-7.7); Neutrophil % 92.4 % (47-70); POSITIVE DIFFERENTIAL YES; Platelet Count 465 K/mm3 (150-450); RBC Distribution Width CV 16.3 % (11.6-14.6); Red Blood Count 4.73 M/mm3 (4.2-5.4); White Blood Count 22.8 K/mm3 (4.4-11.0)
[2019-09-07 08:17] LABS: International Normalized Ratio 1.2; Prothrombin Time (Protime)PT. 14.7 SECONDS (11.7-14.9)
[2019-09-07 08:18] LABS: Partial Thromboplast Time 33.5 Seconds (24.1-36.2)
[2019-09-07 08:21] LABS: Differential Indicated SCAN CRITERIA MET
[2019-09-07 08:35] LABS: Anion Gap 13 (5-15); BUN 60 mg/dL (7-18); BUN/Creat Ratio 28.4 RATIO (10-20); Calcium,Total 8.8 mg/dL (8.5-10.1); Chloride 84 mmol/L (98-107); Creatinine, Serum 2.11 mg/dL (0.55-1.02); EST Glomerular Filtration Rate 25 mL/min (>60); Est Glom Filt Rate - Afr Amer 30 mL/min (>60); Estimated Creatinine Clearance 25.22 ml/min; Glucose 114 mg/dL (74-106); Potassium 3.1 mmol/L (3.5-5.1); Sodium Level 117 mmol/L (136-145)
[2019-09-07 09:04] LABS: Platelet Estimate ADEQUATE (ADEQ)
[2019-09-07 09:05] LABS: Anisocytosis RARE; Microcytosis 1+
--- NOTE | 2019-09-07 09:34 | CM.UR ---
Participated in interdisciplinary rounds this am. Patient is alert but still slightly confused. Sodium was low. Plan is to place PICC line for frequent labs as they will continue to monitor her NA level. Hector Banerjee RN, CCM.
[2019-09-07] MEDS: predniSONE 5 MG Tablet 2.5 MG PO ×2 (09:39→17:09)
[2019-09-07] MEDS: Enoxaparin 30 MG/0.3 ML Syringe SC (09:39)
[2019-09-07] MEDS: Furosemide 40 MG/4 ML Vial IV (09:39)
--- NOTE | 2019-09-07 09:59 | CM.UR ---
RN CM Assessment Introduced role of RN CM to patient. Patient is alert and able to participate in RN CM Assessment. Care providers, pharmacy, and demographics verified. at bedside. Presentation: Altered Mental status, weakness Admit Dx: Hyponatremia, CHF Re-Admit: no Barriers/Issues: Mao, have to hire transportation. PCP: [facility] Specialists: Dr Reza for RA ([facility]). Preferred Pharmacy: [facility] Insurance: [employer] Benefit: none--mu-ism assistance. LNOK: , Andrew LW/HPOA: does not have. Accepted information/education. Living Arrangements: 2 story home. No difficulty normally in getting around home. ADL?s: Occasional difficulties with RA. Daughter lives with them and can help. Transportation: Hires drivers. DME: walker, cane, shower chair DME co: no preference HHC: None SNF: None Goal: Home, denies needs. DC PLAN: Home, no needs identified at this time. CM will remain available should any needs arise. Hector Banerjee RN, CCM.
[2019-09-07 10:11] LABS: M R Staph aureus DNA By PCR Negative (Negative); Probe Check PASS; Specimen Processing Control PASS
[2019-09-07] MEDS: 0.9% Saline Lock 10 ML Syringe IV (12:48)
--- NOTE | 2019-09-07 16:14 | PCM.CONS.R ---
Problem List (1) Hyponatremia Status: Acute Consultation - Renal PCP/ Referring MD: Requesting physician: [] Primary care physician: Jabier Arboleda DO - History of Present Illness History of Present Illness: The patient is a 64 year old F PMH of CKD stage3/4, hypertension , RA. Pt follows with glove pairer is [facility]. Pt has functioning fistula in the LUE . Pt presented to [facility] for not feeling well and confusion. Na was found to be low at 116, along with sepsis with elevated WBC. As per the patient;s , she had one of severe diarrhea. Pt also was taking lasix for the last 2 weeks for legs edema. Cr at presentation was 2.3 mg/dl which seems close to her baseline. Pt was felt to be dry initially and was given IVF. BNP came back elevated ~ 2400 with chest xray finding of CHF. IVF was stopped and patient was started on lasix. Na level improved little with IVF then dropped again to 117 this am Pt is hard to be cannulate for blood work and there is no subsequent BMP after am lab Pt has stratton cath which is draining yellow urine. Pt remains little confused. awake and follows commands ROS: 12 review is negative except generalized aching. - Allergies Allergies: Allergies No Known Allergies Allergy (Verified 09/06/19 14:51) - Current Medications Current Medications: Current Medications Acetaminophen (Tylenol) 650 mg PO Q6H PRN PRN PRN Reason: Pain Score 1-3/Temp > 100.7 F Last Admin: 09/07/19 09:39 Dose: 650 mg Documented by: Enoxaparin Sodium (Lovenox) 30 mg SC DAILY [facility] Last Admin: 09/07/19 09:39 Dose: 30 mg Documented by: Furosemide (Lasix) 40 mg IV BID@1000,1800 [facility] Last Admin: 09/07/19 09:39 Dose: 40 mg Documented by: Glucagon () 1 mg IM .X1 PRN PRN Reason: Hypoglycemia Hydralazine HCl (Apresoline Iv) 10 mg IV Q4H PRN PRN PRN Reason: SBP >160 Last Admin: 09/07/19 12:47 Dose: 10 mg Documented by: Cefepime HCl 1 gm/ Sodium (Chloride) 50 mls @ 100 mls/hr IV QHS [facility] Last Infusion: 09/07/19 00:08 Dose: Infused Documented by: Sodium Chloride () 250 mls @ 15 mls/hr IV .[id number] PRN PRN Reason: Saline Flush Sodium Chloride () 250 mls @ 15 mls/hr IV .[id number] PRN PRN Reason: Additional IVPB Infusion Nitroglycerin (Nitrostat) 0.4 mg SUBLINGUAL Q5M PRN PRN Reason: CARDIAC/CHEST PAIN Ondansetron HCl (Zofran) 4 mg IV Q8H PRN PRN PRN Reason: NAUSEA/VOMITING Oxycodone HCl (Oxyir) 5 mg PO Q6H PRN PRN PRN Reason: Pain Score 6-10/10 Last Admin: 09/07/19 12:51 Dose: 5 mg Documented by: Prednisone () 2.5 mg PO BIDCM RUBIO Last Admin: 09/07/19 09:39 Dose: 2.5 mg Documented by: Sodium Chloride () 10 - 40 ml IV UD PRN PRN Reason: SALINE FLUSH Last Admin: 09/07/19 12:48 Dose: 10 ml Documented by: - Social History Smoking Status: Never smoker - Family History Maternal History Items: No pertinent history Paternal History Items: No pertinent history Patient Problems: Active and Suspected Problems Hyponatremia (Acute) - Physical Exam Vitals/I&O's: Vital Signs Temp Pulse Resp BP Pulse Ox 96.5 F L 101 H 18 145/68 H 97 09/07/19 07:00 09/07/19 15:00 09/07/19 15:00 09/07/19 15:00 09/07/19 15:00 Oxygen Delivery Method Room Air Weight: 93.3 kg Body Mass Index (BMI) 33.2 Finger Stick Blood Glucose 143 Intake and Output for Last 24 Hours 09/05/19 09/06/19 09/07/19 23:59 23:59 23:59 Intake Total 1542.5 / 1542.5 790 / 790 Output Total 600 / 1200 2375 / 2375 Balance 942.5 / 342.5 -1585 / -1585 General: Alert, Cooperative HEENT: Atraumatic Oral: Dry Mucosa Neck: Supple, No JVD Lungs: - - LLL crackles. decreased BS over the RLL Cardiovascular: Regular rate, Regular Rhythm, Normal S1, Normal S2 Abdomen: Bowel Sounds Present, Soft, Non Tender Extremities: No clubbing, No cyanosis, Edema - +1 edema of LE Skin: No rashes Musculoskeletal: No Muscle Wasting Neurological: Cranial nerves II-XII grossly intact, Neuro grossly intact Psych/Mental Status: Appropriate Microbiology Past 72 Hours 09/07/19 00:28 Mucosa - Nasopharyngeal Respiratory Panel (PCR) - Final 09/06/19 16:13 Mucosa - Nasopharyngeal Influenza Types A,B Direct FA (ANA) - Final Laboratory Results 09/06/19 16:00: WBC 27.5 H, RBC 4.79, Hgb 11.9 L, Hct 36.0 L, MCV 75.2 L, MCH 24.8 L, MCHC 33.1, RDW Std Deviation 45.2 H, RDW Coeff of Mika 16.6 H, Plt Count 434, MPV 9.1, Immature Gran % (Auto) 0.500, Neut % (Auto) 94.2 H, Lymph % (Auto) 3.1 L, [place] % (Auto) 2.1, Eos % (Auto) 0.0, Baso % (Auto) 0.1, Absolute Neuts (auto) 25.9 H, Absolute Lymphs (auto) 0.84, Nucleated RBC % 0, Differential Comment SEE COMMENT, Diff Path Review May foll, Platelet Estimate SLT INC, Anisocytosis RARE, Microcytosis RARE 09/06/19 16:00: B-Natriuretic Peptide 2402.2 H 09/06/19 16:09: Sodium 116 L*, Potassium 3.2 L, Chloride 84 L, Carbon Dioxide 20.0 L, Anion Gap 12, BUN 63 H, Creatinine 2.34 H, Estim Creat Clear Calc 23.62, Est GFR (MDRD) Af Amer 27 L, Est GFR (MDRD) Non-Af 22 L, BUN/Creatinine Ratio 26.9 H, Glucose 128 H, Calcium 9.1, Total Bilirubin 0.60, AST 26, ALT 19, Alkaline Phosphatase 123 H, Troponin I 0.371 H, Total Protein 6.6, Albumin 1.7 L, Globulin 4.9 H, Albumin/Globulin Ratio 0.3 L 09/06/19 16:09: Lactic Acid 0.9 09/06/19 16:33: Urine Color Yellow, Urine Clarity Clear, Urine pH 6.5, Ur Specific [place] 1.015, Urine Protein 500 H, Urine Glucose (UA) 50 H, Urine Ketones Negative, Urine Occult Blood 25 H, Urine Nitrite Negative, Urine Bilirubin Negative, Urine Urobilinogen Normal, Ur Leukocyte Esterase Negative, Urine RBC 0-5 SEEN, Urine WBC 0-5 SEEN, Ur Squamous Epith Cells 0-5 SEEN, Amorphous Sediment 1+, Urine Bacteria 1+, Urine Mucus 0 SEEN 09/06/19 19:28: Sodium 118 L*, Potassium 3.4 L, Chloride 86 L, Carbon Dioxide 19.0 L, Anion Gap 13, BUN 59 H, Creatinine 2.20 H, Estim Creat Clear Calc 24.18, Est GFR (MDRD) Af Amer 29 L, Est GFR (MDRD) Non-Af 24 L, BUN/Creatinine Ratio 26.8 H, Glucose 131 H, Calcium 8.9, Triglycerides 73, Cholesterol 231 H, LDL Cholesterol 121, VLDL Cholesterol 15, HDL Cholesterol 95 09/06/19 19:28: Serum Osmolality 264 L 09/06/19 19:28: Troponin I 0.360 H 09/06/19 20:45: Urine Osmolality 350 09/06/19 20:45: Urine Creatinine 38.40 09/06/19 20:45: Ur Random Sodium 38 09/06/19 22:04: Sodium Cancelled, Potassium Cancelled, Chloride Cancelled, Carbon Dioxide Cancelled, Anion Gap Cancelled, BUN Cancelled, Creatinine Cancelled, Estim Creat Clear Calc Cancelled, Est GFR (MDRD) Af Amer Cancelled, Est GFR (MDRD) Non-Af Cancelled, BUN/Creatinine Ratio Cancelled, Glucose Cancelled, Calcium Cancelled 09/06/19 22:04: Troponin I 0.317 H 09/06/19 23:05: Sodium 117 L*, Potassium 4.1, Chloride 87 L, Carbon Dioxide 17.0 L, Anion Gap 13, BUN 59 H, Creatinine 2.21 H, Estim Creat Clear Calc 24.07, Est GFR (MDRD) Af Amer 29 L, Est GFR (MDRD) Non-Af 24 L, BUN/Creatinine Ratio 26.7 H, Glucose 114 H, Calcium 8.5 09/07/19 08:00: WBC 22.8 H, RBC 4.73, Hgb 12.1, Hct 35.6 L, MCV 75.3 L, MCH 25.6 L, MCHC 34.0, RDW Std Deviation 44.0 H, RDW Coeff of Mika 16.3 H, Plt Count 465 H, MPV 9.2, Immature Gran % (Auto) 0.500, Neut % (Auto) 92.4 H, Lymph % (Auto) 4.2 L, [place] % (Auto) 2.7, Eos % (Auto) 0.1, Baso % (Auto) 0.1, Absolute Neuts (auto) 21.1 H, Absolute Lymphs (auto) 0.97, Nucleated RBC % 0, Platelet Estimate ADEQUATE, Anisocytosis RARE, Microcytosis 1+ 09/07/19 08:00: Sodium 117 L*, Potassium 3.1 L, Chloride 84 L, Carbon Dioxide 20.0 L, Anion Gap 13, BUN 60 H, Creatinine 2.11 H, Estim Creat Clear Calc 25.22, Est GFR (MDRD) Af Amer 30 L, Est GFR (MDRD) Non-Af 25 L, BUN/Creatinine Ratio 28.4 H, Glucose 114 H, Calcium 8.8 09/07/19 08:00: PT 14.7, INR 1.2, APTT 33.5 09/07/19 08:27: MRSA (PCR) Negative Current Medications Acetaminophen (Tylenol) 650 mg PO Q6H PRN PRN PRN Reason: Pain Score 1-3/Temp > 100.7 F Last Admin: 09/07/19 09:39 Dose: 650 mg Documented by: Enoxaparin Sodium (Lovenox) 30 mg SC DAILY [facility] Last Admin: 09/07/19 09:39 Dose: 30 mg Documented by: Furosemide (Lasix) 40 mg IV BID@1000,1800 [facility] Last Admin: 09/07/19 09:39 Dose: 40 mg Documented by: Glucagon () 1 mg IM .X1 PRN PRN Reason: Hypoglycemia Hydralazine HCl (Apresoline Iv) 10 mg IV Q4H PRN PRN PRN Reason: SBP >160 Last Admin: 09/07/19 12:47 Dose: 10 mg Documented by: Cefepime HCl 1 gm/ Sodium (Chloride) 50 mls @ 100 mls/hr IV QHS [facility] Last Infusion: 09/07/19 00:08 Dose: Infused Documented by: Sodium Chloride () 250 mls @ 15 mls/hr IV .[id number] PRN PRN Reason: Saline Flush Sodium Chloride () 250 mls @ 15 mls/hr IV .[id number] PRN PRN Reason: Additional IVPB Infusion Nitroglycerin (Nitrostat) 0.4 mg SUBLINGUAL Q5M PRN PRN Reason: CARDIAC/CHEST PAIN Ondansetron HCl (Zofran) 4 mg IV Q8H PRN PRN PRN Reason: NAUSEA/VOMITING Oxycodone HCl (Oxyir) 5 mg PO Q6H PRN PRN PRN Reason: Pain Score 6-10/10 Last Admin: 09/07/19 12:51 Dose: 5 mg Documented by: Prednisone () 2.5 mg PO BIDCM [facility] Last Admin: 09/07/19 09:39 Dose: 2.5 mg Documented by: Sodium Chloride () 10 - 40 ml IV UD PRN PRN Reason: SALINE FLUSH Last Admin: 09/07/19 12:48 Dose: 10 ml Documented by: Assessment/Plan All Active Problems Hyponatremia (Acute) 1- Hyponatremia : Pt has been on SSRI at home so patient could have SIADH induced by SSRI. Worsening Na level is likely from diarrhea and poor oral intake. urine study showed urine Na > 30 and Urin osmolality > 300 but I believe were done while the patient is on lasix Pt presented with Na 116 and improved to 118 with IVF.IVF had to be stopped due to possible CHF. Na worsened with lasix to 117 Since the patient has functioning LUE AVF, Will arrange for short HD session today with Low Na dialysate at 130 to avoid over correction Check Na after HD session. Avoid thiazide diuretics 2- KHUSHBOO on CKD stage.3. Pt follows with glove pairer in [facility] Pt has functioning LUE AVF placed 3 years ago. Kidney function improved after placing the access and the patient did not need HD KHUSHBOO this admission likely from dehydration. Cr improved with IVF Will arrange for HD session today for electrolytes derangement 3- hypokalemia: K is 3.1 Will use 4 K dialysate today 4- Sepsis On Abx as per ICU Will continue to follow Please call if any question Gabriela Franks MD
--- NOTE | 2019-09-07 16:26 | CON.PCM_ITS ---
Reason for Consult Date of Consultation: 09/07/19 History of Present Illness: The patient is a 64 year old F history significant for having history of rheumatoid arthritis for which she remains on maintenance dose of prednisone and disease modifying agents, history of chronic kidney disease stage III for which she had a fistula placed in the left arm which is mature but has not been on hemodialysis follows with a orthodontic technician assistant in [place] with altered mental status changes and was diagnosed with metabolic encephalopathy. Patient has very short-term memory and cannot recollect the fact that Dr. Ochoa orthodontic technician assistant just saw her a few minutes before my evaluation and could not recollect the visit from Dr. Ochoa /she denies any symptoms of chest discomfort but complains to me diffuse generalized body aches but she was requesting me if I can help her improve the sodium levels. denies any work-up for ischemic heart disease in the past denies any prior hx of stress test or left heart catheterization. [] Past Medical History Allergies/Adverse Reactions: Allergies No Known Allergies Allergy (Verified 09/06/19 14:51) Home Medications: Ambulatory Orders Medication Instructions Recorded ALPRAZolam [Xanax] 1 mg PO TID PRN PRN 01/16/18 Amitriptyline HCl [Elavil] 10 mg PO QHS 01/16/18 Baclofen [Lioresal] 10 mg PO 4X/DAY 01/16/18 Etanercept [Enbrel] 50 mg SQ Q7D 01/16/18 Ferrous Gluconate [Iron] 1 tab PO TID 01/16/18 Fluoxetine [Prozac] 20 mg PO DAILY 01/16/18 Prednisone 2.5 mg PO BID 01/16/18 traMADol [Ultram (G)] 50 mg PO Q6H PRN PRN 01/16/18 Losartan Potassium [Cozaar] 25 mg PO DAILY 09/06/19 Oxycodone HCl 5 mg PO Q6H PRN PRN 09/06/19 Psychiatric History: No pertinent psych hx MATERIAL INSPECTOR History: No pertinent MATERIAL INSPECTOR history - *Family History Maternal History Items: No pertinent history Paternal History Items: No pertinent history Lives: Spouse/ Significant Other Smoking Status: Never smoker Tobacco Use: Non-smoker Objective: Vital Signs Temp Pulse Resp BP Pulse Ox 96.5 F L 101 H 18 145/68 H 97 09/07/19 07:00 09/07/19 15:00 09/07/19 15:00 09/07/19 15:00 09/07/19 15:00 Oxygen Delivery Method Room Air Weight: 205 lb 11.06 oz Body Mass Index (BMI) 33.2 Finger Stick Blood Glucose 143 Intake and Output for Last 24 Hours 09/05/19 09/06/19 09/07/19 23:59 23:59 23:59 Intake Total 1542.5 / 1542.5 790 / 790 Output Total 600 / 1200 2375 / 2375 Balance 942.5 / 342.5 -1585 / -1585 09/06/19 16:00: WBC 27.5 H, RBC 4.79, Hgb 11.9 L, Hct 36.0 L, MCV 75.2 L, MCH 24.8 L, MCHC 33.1, Plt Count 434, MPV 9.1, Immature Gran % (Auto) 0.500, Neut % (Auto) 94.2 H, Lymph % (Auto) 3.1 L, [place] % (Auto) 2.1, Eos % (Auto) 0.0, Baso % (Auto) 0.1, Absolute Neuts (auto) 25.9 H, Nucleated RBC % 0 09/06/19 16:00: B-Natriuretic Peptide 2402.2 H 09/06/19 16:09: Sodium 116 L*, Potassium 3.2 L, Chloride 84 L, Carbon Dioxide 20.0 L, Anion Gap 12, BUN 63 H, Creatinine 2.34 H, Est GFR (MDRD) Af Amer 27 L, Est GFR (MDRD) Non-Af 22 L, BUN/Creatinine Ratio 26.9 H, Glucose 128 H, Calcium 9.1, Total Bilirubin 0.60, Troponin I 0.371 H 09/06/19 16:09: Lactic Acid 0.9 09/06/19 16:33: Urine Color Yellow, Urine Clarity Clear, Urine pH 6.5, Ur Specific [place] 1.015, Urine Protein 500 H, Urine Glucose (UA) 50 H, Urine Ketones Negative, Urine Occult Blood 25 H, Urine Nitrite Negative, Urine Bilirubin Negative, Urine Urobilinogen Normal, Ur Leukocyte Esterase Negative, Urine RBC 0-5 SEEN, Urine WBC 0-5 SEEN 09/06/19 19:28: Sodium 118 L*, Potassium 3.4 L, Chloride 86 L, Carbon Dioxide 19.0 L, Anion Gap 13, BUN 59 H, Creatinine 2.20 H, Est GFR (MDRD) Af Amer 29 L, Est GFR (MDRD) Non-Af 24 L, BUN/Creatinine Ratio 26.8 H, Glucose 131 H, Calcium 8.9, Triglycerides 73, Cholesterol 231 H, LDL Cholesterol 121, VLDL Cholesterol 15, HDL Cholesterol 95 09/06/19 19:28: Serum Osmolality 264 L 09/06/19 19:28: Troponin I 0.360 H 09/06/19 22:04: Sodium Cancelled, Potassium Cancelled, Chloride Cancelled, Carbon Dioxide Cancelled, Anion Gap Cancelled, BUN Cancelled, Creatinine Cancelled, Est GFR (MDRD) Af Amer Cancelled, Est GFR (MDRD) Non-Af Cancelled, BUN/Creatinine Ratio Cancelled, Glucose Cancelled, Calcium Cancelled 09/06/19 22:04: Troponin I 0.317 H 09/06/19 23:05: Sodium 117 L*, Potassium 4.1, Chloride 87 L, Carbon Dioxide 17.0 L, Anion Gap 13, BUN 59 H, Creatinine 2.21 H, Est GFR (MDRD) Af Amer 29 L, Est GFR (MDRD) Non-Af 24 L, BUN/Creatinine Ratio 26.7 H, Glucose 114 H, Calcium 8.5 09/07/19 08:00: WBC 22.8 H, RBC 4.73, Hgb 12.1, Hct 35.6 L, MCV 75.3 L, MCH 25.6 L, MCHC 34.0, Plt Count 465 H, MPV 9.2, Immature Gran % (Auto) 0.500, Neut % (Auto) 92.4 H, Lymph % (Auto) 4.2 L, [place] % (Auto) 2.7, Eos % (Auto) 0.1, Baso % (Auto) 0.1, Absolute Neuts (auto) 21.1 H, Nucleated RBC % 0 09/07/19 08:00: Sodium 117 L*, Potassium 3.1 L, Chloride 84 L, Carbon Dioxide 20.0 L, Anion Gap 13, BUN 60 H, Creatinine 2.11 H, Est GFR (MDRD) Af Amer 30 L, Est GFR (MDRD) Non-Af 25 L, BUN/Creatinine Ratio 28.4 H, Glucose 114 H, Calcium 8.8 09/07/19 08:00: PT 14.7, INR 1.2, APTT 33.5 Rhythm: EKG: ECHO: Stress Test: Cardiac Cath: PCI: CT Surgery: Holter monitor: EPS: PPM: CXR: Chest CT Scan: Assessment/Plan 1 Metabolic Encephalopathy possibly secondary to severe hyponatremia as well as underlying pneumonia. Patient was seen by Dr. Ochoa nephrology and plans to do hemodialysis for electrolyte imbalance and to improve hyponatremia. Patient's family informed to start disease that patient was taking Lasix for the last 2 weeks prior to increasing pedal edema and this may have contributed to hyponatremia. 2. EKG showing evidence of sinus rhythm with T wave inversions in the high lateral leads I aVL as well as in V5 and V6 suggesting of underlying ischemia. Given her multiple risk factors include diabetes mellitus sedentary lifestyle obesity chronic kidney disease I would not be surprised if she has any underlying ischemic heart disease. But this should be addressed once her acute metabolic encephalopathy is cleared by a functional study probably a pharmacological stress myocardial perfusion study prior to the hospital discharge. 3. Elevated troponins with a flat trend indicating that the troponins are false positive secondary to acute on chronic kidney disease/ 4. Rheumatoid arthritis for which she remains on maintenance dose of prednisone 5. Hypertension for which she remains on losartan. Blood pressures poorly controlled and I would initiate the patient on metoprolol succinate 50 mg twice a day for rate control as well as for hypertension to decrease ischemic demand 6. Lipid profile and fasting sample and consider initiating on high intensity statin at a lower dose and titrate as indicated Thank you for asking me to evaluate Mrs. Centeno
[2019-09-07] MEDS: Metoprolol(XL)Succ 50 MG Tablet PO ×2 (17:09→23:12)
--- NOTE | 2019-09-07 17:25 | PCM.PROGNOTE ---
Patient Problems: Active and Suspected Problems Hyponatremia (Acute) Subjective: Patient was seen and examined today in ICU, I talked with nephrology concerning her care today-patient was going to be dialyzed due to her hyponatremia. Patient voices no complaints at this examiner today other than the fact that her back is uncomfortable lying in bed she would like to sit in a chair. - Physical Exam Vitals/I&O's: Vital Signs Temp Pulse Resp BP Pulse Ox 96.5 F L 103 H 20 H 157/76 H 97 09/07/19 07:00 09/07/19 17:09 09/07/19 16:00 09/07/19 17:09 09/07/19 16:00 Oxygen Delivery Method Room Air Weight: 93.3 kg Body Mass Index (BMI) 33.2 Finger Stick Blood Glucose 143 Intake and Output for Last 24 Hours 09/05/19 09/06/19 09/07/19 23:59 23:59 23:59 Intake Total 1542.5 / 1542.5 790 / 790 Output Total 600 / 1200 2375 / 2375 Balance 942.5 / 342.5 -1585 / -1585 General: Alert, Oriented x3, Cooperative, No apparent distress, Well developed HEENT: Atraumatic, PERRLA, EOMI, Normocephalic Oral: Moist Mucosa Neck: Supple, Trachea Midline, Thyroid Normal Size and Texture Lungs: Clear to auscultation, Normal air movement, No rhonchi, No wheeze, No rales Cardiovascular: Regular rate, Regular Rhythm, Normal S1, Normal S2, No murmurs, PMI Normal, No rub noted Abdomen: Bowel Sounds Present, Soft, Non Tender Extremities: No clubbing, No cyanosis, Capillary Refill Less than 3 Seconds Skin: No rashes, No breakdown Musculoskeletal: No Tenderness to Palpation of Joints or Extremities Neurological: Cranial nerves II-XII grossly intact, Neuro grossly intact, Sensory exam intact to light touch and pain Psych/Mental Status: Normal Affect, Appropriate, Alert and oriented to time, place, person, mood and affect Microbiology Past 72 Hours 09/07/19 00:28 Mucosa - Nasopharyngeal Respiratory Panel (PCR) - Final 09/06/19 16:13 Mucosa - Nasopharyngeal Influenza Types A,B Direct FA (ANA) - Final Laboratory Results 09/06/19 16:00: B-Natriuretic Peptide 2402.2 H 09/06/19 19:28: Sodium 118 L*, Potassium 3.4 L, Chloride 86 L, Carbon Dioxide 19.0 L, Anion Gap 13, BUN 59 H, Creatinine 2.20 H, Estim Creat Clear Calc 24.18, Est GFR (MDRD) Af Amer 29 L, Est GFR (MDRD) Non-Af 24 L, BUN/Creatinine Ratio 26.8 H, Glucose 131 H, Calcium 8.9, Triglycerides 73, Cholesterol 231 H, LDL Cholesterol 121, VLDL Cholesterol 15, HDL Cholesterol 95 09/06/19 19:28: Serum Osmolality 264 L 09/06/19 19:28: Troponin I 0.360 H 09/06/19 20:45: Urine Osmolality 350 09/06/19 20:45: Urine Creatinine 38.40 09/06/19 20:45: Ur Random Sodium 38 09/06/19 22:04: Sodium Cancelled, Potassium Cancelled, Chloride Cancelled, Carbon Dioxide Cancelled, Anion Gap Cancelled, BUN Cancelled, Creatinine Cancelled, Estim Creat Clear Calc Cancelled, Est GFR (MDRD) Af Amer Cancelled, Est GFR (MDRD) Non-Af Cancelled, BUN/Creatinine Ratio Cancelled, Glucose Cancelled, Calcium Cancelled 09/06/19 22:04: Troponin I 0.317 H 09/06/19 23:05: Sodium 117 L*, Potassium 4.1, Chloride 87 L, Carbon Dioxide 17.0 L, Anion Gap 13, BUN 59 H, Creatinine 2.21 H, Estim Creat Clear Calc 24.07, Est GFR (MDRD) Af Amer 29 L, Est GFR (MDRD) Non-Af 24 L, BUN/Creatinine Ratio 26.7 H, Glucose 114 H, Calcium 8.5 09/07/19 08:00: WBC 22.8 H, RBC 4.73, Hgb 12.1, Hct 35.6 L, MCV 75.3 L, MCH 25.6 L, MCHC 34.0, RDW Std Deviation 44.0 H, RDW Coeff of Mika 16.3 H, Plt Count 465 H, MPV 9.2, Immature Gran % (Auto) 0.500, Neut % (Auto) 92.4 H, Lymph % (Auto) 4.2 L, [place] % (Auto) 2.7, Eos % (Auto) 0.1, Baso % (Auto) 0.1, Absolute Neuts (auto) 21.1 H, Absolute Lymphs (auto) 0.97, Nucleated RBC % 0, Platelet Estimate ADEQUATE, Anisocytosis RARE, Microcytosis 1+ 09/07/19 08:00: Sodium 117 L*, Potassium 3.1 L, Chloride 84 L, Carbon Dioxide 20.0 L, Anion Gap 13, BUN 60 H, Creatinine 2.11 H, Estim Creat Clear Calc 25.22, Est GFR (MDRD) Af Amer 30 L, Est GFR (MDRD) Non-Af 25 L, BUN/Creatinine Ratio 28.4 H, Glucose 114 H, Calcium 8.8 09/07/19 08:00: PT 14.7, INR 1.2, APTT 33.5 09/07/19 08:27: MRSA (PCR) Negative Current Medications Acetaminophen (Tylenol) 650 mg PO Q6H PRN PRN PRN Reason: Pain Score 1-3/Temp > 100.7 F Last Admin: 09/07/19 09:39 Dose: 650 mg Documented by: Enoxaparin Sodium (Lovenox) 30 mg SC DAILY [facility] Last Admin: 09/07/19 09:39 Dose: 30 mg Documented by: Furosemide (Lasix) 40 mg IV BID@1000,1800 [facility] Last Admin: 09/07/19 09:39 Dose: 40 mg Documented by: Glucagon () 1 mg IM .X1 PRN PRN Reason: Hypoglycemia Hydralazine HCl (Apresoline Iv) 10 mg IV Q4H PRN PRN PRN Reason: SBP >160 Last Admin: 09/07/19 12:47 Dose: 10 mg Documented by: Cefepime HCl 1 gm/ Sodium (Chloride) 50 mls @ 100 mls/hr IV QHS [facility] Last Infusion: 09/07/19 00:08 Dose: Infused Documented by: Sodium Chloride () 250 mls @ 15 mls/hr IV .[id number] PRN PRN Reason: Saline Flush Sodium Chloride () 250 mls @ 15 mls/hr IV .[id number] PRN PRN Reason: Additional IVPB Infusion Metoprolol Succinate (Toprol Xl (Beta Azra)) 50 mg PO BID [facility] Last Admin: 09/07/19 17:09 Dose: 50 mg Documented by: Nitroglycerin (Nitrostat) 0.4 mg SUBLINGUAL Q5M PRN PRN Reason: CARDIAC/CHEST PAIN Ondansetron HCl (Zofran) 4 mg IV Q8H PRN PRN PRN Reason: NAUSEA/VOMITING Oxycodone HCl (Oxyir) 5 mg PO Q6H PRN PRN PRN Reason: Pain Score 6-10/10 Last Admin: 09/07/19 12:51 Dose: 5 mg Documented by: Prednisone () 2.5 mg PO BIDCM RUBIO Last Admin: 09/07/19 17:09 Dose: 2.5 mg Documented by: Sodium Chloride () 10 - 40 ml IV UD PRN PRN Reason: SALINE FLUSH Last Admin: 09/07/19 12:48 Dose: 10 ml Documented by: Medical Necessity - Tobacco Use Smoking Status: Never smoker Tobacco Use: Non-smoker Assessment/Plan All Active Problems Hyponatremia (Acute) #1 hyponatremia-etiology unclear at this point, patient will be dialyzed per nephrology today #2 leukocytosis-etiology unclear, monitor labs #3 Metabolic encephalopathy-etiology unclear at this time, continue to monitor #4 chronic kidney disease stage III #5 elevated troponin secondary to chronic kidney disease #6 essential hypertension #7 pulmonary hypertension #8 amyloidosis Code Visit Inpatient E&M: 23780 Subs Hosp L2
--- NOTE | 2019-09-07 22:58 | DIALYSIS ---
HD x2.5 hours completed at 2215 on a 4K bath, patient tolerated first tx well, no fluid removed, CritLine profile A, accessed via LFA AVF using 17G needles, access worked well, needles closely monitored, pt c/o generalized chronic pain before and during dialysis causing her to move around frequently, stable tx, needles pulled and stasis achieved without issue
[2019-09-08] VITALS (17 sets, daily range): BP systolic 117–155; BP diastolic 59–97; PULSE 73–88; RESP 10–18; TEMP 36.3–36.8; O2SAT 96–100
[2019-09-08 01:02] LABS: Anion Gap 10 (5-15); BUN 38 mg/dL (7-18); BUN/Creat Ratio 22.8 RATIO (10-20); Calcium,Total 8.4 mg/dL (8.5-10.1); Chloride 88 mmol/L (98-107); Creatinine, Serum 1.67 mg/dL (0.55-1.02); EST Glomerular Filtration Rate 33 mL/min (>60); Est Glom Filt Rate - Afr Amer 40 mL/min (>60); Estimated Creatinine Clearance 31.86 ml/min; Glucose 109 mg/dL (74-106); Potassium 3.2 mmol/L (3.5-5.1); Sodium Level 123 mmol/L (136-145)
[2019-09-08] MEDS: oxyCODONE 5 MG Tablet PO ×3 (01:10→21:06)
--- NOTE | 2019-09-08 04:00 | EKG12_ITS ---
Test Reason : AM Blood Pressure : / mmHG Vent. Rate : 082 BPM Atrial Rate : 082 BPM P-R Int : 204 ms QRS Dur : 094 ms QT Int : 438 ms P-R-T Axes : 058 -12 149 degrees QTc Int : 511 ms Normal sinus rhythm T wave abnormality, consider lateral ischemia Prolonged QT Poor R- wave Progression Abnormal ECG Confirmed by ESTER LOZANO, MARCELLE ([id number]), electronic news gathering editor WHIT GRAHAM ([id number]) on 09/11/2019 11:06:13 AM Referred By: Isabella Rolon Confirmed By:MARCELLE NORMAN MD
[2019-09-08 04:24] LABS: Absolute Lymphocyte Count 0.94 X10^3/uL (0.83-4.51); Absolute Neutrophil Count 12.3 X10^3/uL (2.0-7.7); Basophil# 0.02 X10^3/uL; Basophil% 0.1 % (0-1); Hematocrit 34.8 % (37-47); Hemoglobin 11.6 g/dL (12.0-15.0); Lymphocyte # 0.94 X10^3/ul (4.0); Lymphocyte % 6.7 % (19-41); Mean Corp Hgb Conc 33.3 g/dL (32-36); Mean Corpuscular Hgb 25.1 pg (27.0-32.0); Mean Corpuscular Volume 75.2 fL (81-99); Mean Platelet Vol. 8.9 fl (6.2-12.0); Monocyte# 0.69 X10^3/uL; Monocyte% 4.9 % (0-10); NRBC Flagged by Analyzer 0 % (0-5); Neutrophil # 12.29 X10^3/uL (2.7-7.7); Neutrophil % 87.9 % (47-70); Platelet Count 440 K/mm3 (150-450); RBC Distribution Width CV 16.9 % (11.6-14.6); RBC Distribution Width SD 45.6 fl (35.1-43.9); Red Blood Count 4.63 M/mm3 (4.2-5.4)
[2019-09-08 04:38] LABS: Anion Gap 10 (5-15); BUN 40 mg/dL (7-18); BUN/Creat Ratio 22.2 RATIO (10-20); Calcium,Total 8.2 mg/dL (8.5-10.1); Chloride 86 mmol/L (98-107); EST Glomerular Filtration Rate 30 mL/min (>60); Est Glom Filt Rate - Afr Amer 36 mL/min (>60); Estimated Creatinine Clearance 29.56 ml/min; Glucose 108 mg/dL (74-106); Potassium 3.1 mmol/L (3.5-5.1); Sodium Level 122 mmol/L (136-145)
--- NOTE | 2019-09-08 07:57 | PCM.PN.INT ---
Subjective: The patient was seen and examined at the bedside this morning. Events from the last 24 hours have been reviewed. The patient is currently afebrile, hemodynamically stable and maintaining appropriate oxygen saturations on room air. Following evaluation by nephrology yesterday, the patient underwent a one-time hemodialysis session. Following this, the patient sodium improved to 123. The patient appears more alert this morning. Her main complaint is for that of generalized musculoskeletal pain, for which she is requesting pain medication. Objective: The patient's most recent lab work, culture data and imaging studies have all been personally reviewed. A noncontrasted chest CT was limited by significant motion artifact. There did appear to be infiltrates in the bilateral lower lobes with a pleural effusion noted on the right side, which appeared to be partially loculated. Surface echocardiogram revealed normal LV size with an ejection fraction of 55 to 60%. Left atrium was moderately enlarged. Pulmonary artery systolic pressure was estimated to be 54 mmHg. General: Alert, Cooperative, No apparent distress HEENT: Atraumatic, PERRLA, Normocephalic Oral: No Gingival or Mucosal Lesions/ Ulcerations Neck: Supple, No Nodes, Trachea Midline Lungs: Diminished, Rales Cardiovascular: Regular rate, Regular Rhythm, Normal S1, Normal S2, No murmurs Abdomen: Bowel Sounds Present, Soft, Non Tender, Obese Extremities: No clubbing, No cyanosis, Edema Skin: No breakdown Musculoskeletal: No Tenderness to Palpation of Joints or Extremities Lymphatic: No Cervical, Supraclavicular, or Inguinal Adenopathy Neurological: Neuro grossly intact Psych/Mental Status: Flat Affect Vital Signs Temp Pulse Resp BP Pulse Ox 98.1 F 83 17 141/74 H 96 09/08/19 04:00 09/08/19 06:00 09/08/19 06:00 09/08/19 06:00 09/08/19 06:00 Oxygen Delivery Method Room Air Weight: 200 lb 13.458 oz Body Mass Index (BMI) 33.2 Finger Stick Blood Glucose 143 Intake and Output for Last 24 Hours 09/06/19 09/07/19 09/08/19 23:59 23:59 23:59 Intake Total 1542.5 / 1542.5 1320 / 1370 130 / 130 Output Total 600 / 1200 2800 / 3150 550 / 550 Balance 942.5 / 342.5 -1480 / -1780 -420 / -420 Labs (Last 48 Hours) 09/06/19 09/06/19 09/06/19 16:00 16:00 16:01 WBC 27.5 H RBC 4.79 Hgb 11.9 L Hct 36.0 L MCV 75.2 L MCH 24.8 L MCHC 33.1 RDW Std Deviation 45.2 H RDW Coeff of Mika 16.6 H Plt Count 434 MPV 9.1 Immature Gran % (Auto) 0.500 Neut % (Auto) 94.2 H Lymph % (Auto) 3.1 L [place] % (Auto) 2.1 Eos % (Auto) 0.0 Baso % (Auto) 0.1 Absolute Neuts (auto) 25.9 H Absolute Lymphs (auto) 0.84 Nucleated RBC % 0 Differential Comment SEE COMMENT Diff Path Review May foll Platelet Estimate SLT INC Anisocytosis RARE Microcytosis RARE PT INR APTT Sodium Potassium Chloride Carbon Dioxide Anion Gap BUN Creatinine Estim Creat Clear Calc Est GFR (MDRD) Af Amer Est GFR (MDRD) Non-Af BUN/Creatinine Ratio Glucose Serum Osmolality Lactic Acid Calcium Total Bilirubin AST ALT Alkaline Phosphatase Troponin I B-Natriuretic Peptide 2402.2 H Total Protein Albumin Globulin Albumin/Globulin Ratio Triglycerides Cholesterol LDL Cholesterol VLDL Cholesterol HDL Cholesterol Urine Color Urine Clarity Urine pH Ur Specific [place] Urine Protein Urine Glucose (UA) Urine Ketones Urine Occult Blood Urine Nitrite Urine Bilirubin Urine Urobilinogen Ur Leukocyte Esterase Urine RBC Urine WBC Ur Squamous Epith Cells Amorphous Sediment Urine Bacteria Urine Mucus Urine Osmolality Ur Random Sodium Urine Creatinine Hep Bs Antigen Hep Bs Antibody Hep B Core Total Ab MRSA (PCR) POC Glucose 143 H 09/06/19 09/06/19 09/06/19 16:09 16:09 16:33 WBC RBC Hgb Hct MCV MCH MCHC RDW Std Deviation RDW Coeff of Mika Plt Count MPV Immature Gran % (Auto) Neut % (Auto) Lymph % (Auto) [place] % (Auto) Eos % (Auto) Baso % (Auto) Absolute Neuts (auto) Absolute Lymphs (auto) Nucleated RBC % Differential Comment Diff Path Review Platelet Estimate Anisocytosis Microcytosis PT INR APTT Sodium 116 L* Potassium 3.2 L Chloride 84 L Carbon Dioxide 20.0 L Anion Gap 12 BUN 63 H Creatinine 2.34 H Estim Creat Clear Calc 23.62 Est GFR (MDRD) Af Amer 27 L Est GFR (MDRD) Non-Af 22 L BUN/Creatinine Ratio 26.9 H Glucose 128 H Serum Osmolality Lactic Acid 0.9 Calcium 9.1 Total Bilirubin 0.60 AST 26 ALT 19 Alkaline Phosphatase 123 H Troponin I 0.371 H B-Natriuretic Peptide Total Protein 6.6 Albumin 1.7 L Globulin 4.9 H Albumin/Globulin Ratio 0.3 L Triglycerides Cholesterol LDL Cholesterol VLDL Cholesterol HDL Cholesterol Urine Color Yellow Urine Clarity Clear Urine pH 6.5 Ur Specific [place] 1.015 Urine Protein 500 H Urine Glucose (UA) 50 H Urine Ketones Negative Urine Occult Blood 25 H Urine Nitrite Negative Urine Bilirubin Negative Urine Urobilinogen Normal Ur Leukocyte Esterase Negative Urine RBC 0-5 SEEN Urine WBC 0-5 SEEN Ur Squamous Epith Cells 0-5 SEEN Amorphous Sediment 1+ Urine Bacteria 1+ Urine Mucus 0 SEEN Urine Osmolality Ur Random Sodium Urine Creatinine Hep Bs Antigen Hep Bs Antibody Hep B Core Total Ab MRSA (PCR) POC Glucose 09/06/19 09/06/19 09/06/19 19:28 19:28 19:28 WBC RBC Hgb Hct MCV MCH MCHC RDW Std Deviation RDW Coeff of Mika Plt Count MPV Immature Gran % (Auto) Neut % (Auto) Lymph % (Auto) [place] % (Auto) Eos % (Auto) Baso % (Auto) Absolute Neuts (auto) Absolute Lymphs (auto) Nucleated RBC % Differential Comment Diff Path Review Platelet Estimate Anisocytosis Microcytosis PT INR APTT Sodium 118 L* Potassium 3.4 L Chloride 86 L Carbon Dioxide 19.0 L Anion Gap 13 BUN 59 H Creatinine 2.20 H Estim Creat Clear Calc 24.18 Est GFR (MDRD) Af Amer 29 L Est GFR (MDRD) Non-Af 24 L BUN/Creatinine Ratio 26.8 H Glucose 131 H Serum Osmolality 264 L Lactic Acid Calcium 8.9 Total Bilirubin AST ALT Alkaline Phosphatase Troponin I 0.360 H B-Natriuretic Peptide Total Protein Albumin Globulin Albumin/Globulin Ratio Triglycerides 73 Cholesterol 231 H LDL Cholesterol 121 VLDL Cholesterol 15 HDL Cholesterol 95 Urine Color Urine Clarity Urine pH Ur Specific [place] Urine Protein Urine Glucose (UA) Urine Ketones Urine Occult Blood Urine Nitrite Urine Bilirubin Urine Urobilinogen Ur Leukocyte Esterase Urine RBC Urine WBC Ur Squamous Epith Cells Amorphous Sediment Urine Bacteria Urine Mucus Urine Osmolality Ur Random Sodium Urine Creatinine Hep Bs Antigen Hep Bs Antibody Hep B Core Total Ab MRSA (PCR) POC Glucose 09/06/19 09/06/19 09/06/19 20:45 20:45 20:45 WBC RBC Hgb Hct MCV MCH MCHC RDW Std Deviation RDW Coeff of Mika Plt Count MPV Immature Gran % (Auto) Neut % (Auto) Lymph % (Auto) [place] % (Auto) Eos % (Auto) Baso % (Auto) Absolute Neuts (auto) Absolute Lymphs (auto) Nucleated RBC % Differential Comment Diff Path Review Platelet Estimate Anisocytosis Microcytosis PT INR APTT Sodium Potassium Chloride Carbon Dioxide Anion Gap BUN Creatinine Estim Creat Clear Calc Est GFR (MDRD) Af Amer Est GFR (MDRD) Non-Af BUN/Creatinine Ratio Glucose Serum Osmolality Lactic Acid Calcium Total Bilirubin AST ALT Alkaline Phosphatase Troponin I B-Natriuretic Peptide Total Protein Albumin Globulin Albumin/Globulin Ratio Triglycerides Cholesterol LDL Cholesterol VLDL Cholesterol HDL Cholesterol Urine Color Urine Clarity Urine pH Ur Specific [place] Urine Protein Urine Glucose (UA) Urine Ketones Urine Occult Blood Urine Nitrite Urine Bilirubin Urine Urobilinogen Ur Leukocyte Esterase Urine RBC Urine WBC Ur Squamous Epith Cells Amorphous Sediment Urine Bacteria Urine Mucus Urine Osmolality 350 Ur Random Sodium 38 Urine Creatinine 38.40 Hep Bs Antigen Hep Bs Antibody Hep B Core Total Ab MRSA (PCR) POC Glucose 09/06/19 09/06/19 09/06/19 22:04 22:04 23:05 WBC RBC Hgb Hct MCV MCH MCHC RDW Std Deviation RDW Coeff of Mika Plt Count MPV Immature Gran % (Auto) Neut % (Auto) Lymph % (Auto) [place] % (Auto) Eos % (Auto) Baso % (Auto) Absolute Neuts (auto) Absolute Lymphs (auto) Nucleated RBC % Differential Comment Diff Path Review Platelet Estimate Anisocytosis Microcytosis PT INR APTT Sodium Cancelled 117 L* Potassium Cancelled 4.1 Chloride Cancelled 87 L Carbon Dioxide Cancelled 17.0 L Anion Gap Cancelled 13 BUN Cancelled 59 H Creatinine Cancelled 2.21 H Estim Creat Clear Calc Cancelled 24.07 Est GFR (MDRD) Af Amer Cancelled 29 L Est GFR (MDRD) Non-Af Cancelled 24 L BUN/Creatinine Ratio Cancelled 26.7 H Glucose Cancelled 114 H Serum Osmolality Lactic Acid Calcium Cancelled 8.5 Total Bilirubin AST ALT Alkaline Phosphatase Troponin I 0.317 H B-Natriuretic Peptide Total Protein Albumin Globulin Albumin/Globulin Ratio Triglycerides Cholesterol LDL Cholesterol VLDL Cholesterol HDL Cholesterol Urine Color Urine Clarity Urine pH Ur Specific [place] Urine Protein Urine Glucose (UA) Urine Ketones Urine Occult Blood Urine Nitrite Urine Bilirubin Urine Urobilinogen Ur Leukocyte Esterase Urine RBC Urine WBC Ur Squamous Epith Cells Amorphous Sediment Urine Bacteria Urine Mucus Urine Osmolality Ur Random Sodium Urine Creatinine Hep Bs Antigen Hep Bs Antibody Hep B Core Total Ab MRSA (PCR) POC Glucose 09/07/19 09/07/19 09/07/19 08:00 08:00 08:00 WBC 22.8 H RBC 4.73 Hgb 12.1 Hct 35.6 L MCV 75.3 L MCH 25.6 L MCHC 34.0 RDW Std Deviation 44.0 H RDW Coeff of Mika 16.3 H Plt Count 465 H MPV 9.2 Immature Gran % (Auto) 0.500 Neut % (Auto) 92.4 H Lymph % (Auto) 4.2 L [place] % (Auto) 2.7 Eos % (Auto) 0.1 Baso % (Auto) 0.1 Absolute Neuts (auto) 21.1 H Absolute Lymphs (auto) 0.97 Nucleated RBC % 0 Differential Comment Diff Path Review Platelet Estimate ADEQUATE Anisocytosis RARE Microcytosis 1+ PT 14.7 INR 1.2 APTT 33.5 Sodium 117 L* Potassium 3.1 L Chloride 84 L Carbon Dioxide 20.0 L Anion Gap 13 BUN 60 H Creatinine 2.11 H Estim Creat Clear Calc 25.22 Est GFR (MDRD) Af Amer 30 L Est GFR (MDRD) Non-Af 25 L BUN/Creatinine Ratio 28.4 H Glucose 114 H Serum Osmolality Lactic Acid Calcium 8.8 Total Bilirubin AST ALT Alkaline Phosphatase Troponin I B-Natriuretic Peptide Total Protein Albumin Globulin Albumin/Globulin Ratio Triglycerides Cholesterol LDL Cholesterol VLDL Cholesterol HDL Cholesterol Urine Color Urine Clarity Urine pH Ur Specific [place] Urine Protein Urine Glucose (UA) Urine Ketones Urine Occult Blood Urine Nitrite Urine Bilirubin Urine Urobilinogen Ur Leukocyte Esterase Urine RBC Urine WBC Ur Squamous Epith Cells Amorphous Sediment Urine Bacteria Urine Mucus Urine Osmolality Ur Random Sodium Urine Creatinine Hep Bs Antigen Hep Bs Antibody Hep B Core Total Ab MRSA (PCR) POC Glucose 09/07/19 09/08/19 09/08/19 08:27 00:30 00:30 WBC RBC Hgb Hct MCV MCH MCHC RDW Std Deviation RDW Coeff of Mika Plt Count MPV Immature Gran % (Auto) Neut % (Auto) Lymph % (Auto) [place] % (Auto) Eos % (Auto) Baso % (Auto) Absolute Neuts (auto) Absolute Lymphs (auto) Nucleated RBC % Differential Comment Diff Path Review Platelet Estimate Anisocytosis Microcytosis PT INR APTT Sodium Potassium Chloride Carbon Dioxide Anion Gap BUN Creatinine Estim Creat Clear Calc Est GFR (MDRD) Af Amer Est GFR (MDRD) Non-Af BUN/Creatinine Ratio Glucose Serum Osmolality Lactic Acid Calcium Total Bilirubin AST ALT Alkaline Phosphatase Troponin I B-Natriuretic Peptide Total Protein Albumin Globulin Albumin/Globulin Ratio Triglycerides Cholesterol LDL Cholesterol VLDL Cholesterol HDL Cholesterol Urine Color Urine Clarity Urine pH Ur Specific [place] Urine Protein Urine Glucose (UA) Urine Ketones Urine Occult Blood Urine Nitrite Urine Bilirubin Urine Urobilinogen Ur Leukocyte Esterase Urine RBC Urine WBC Ur Squamous Epith Cells Amorphous Sediment Urine Bacteria Urine Mucus Urine Osmolality Ur Random Sodium Urine Creatinine Hep Bs Antigen Pending Hep Bs Antibody Pending Hep B Core Total Ab Pending MRSA (PCR) Negative POC Glucose 09/08/19 09/08/19 09/08/19 00:30 04:15 04:15 WBC 14.0 H RBC 4.63 Hgb 11.6 L Hct 34.8 L MCV 75.2 L MCH 25.1 L MCHC 33.3 RDW Std Deviation 45.6 H RDW Coeff of Mika 16.9 H Plt Count 440 MPV 8.9 Immature Gran % (Auto) 0.400 Neut % (Auto) 87.9 H Lymph % (Auto) 6.7 L [place] % (Auto) 4.9 Eos % (Auto) 0.0 Baso % (Auto) 0.1 Absolute Neuts (auto) 12.3 H Absolute Lymphs (auto) 0.94 Nucleated RBC % 0 Differential Comment Diff Path Review Platelet Estimate Anisocytosis Microcytosis PT INR APTT Sodium 123 L 122 L Potassium 3.2 L 3.1 L Chloride 88 L 86 L Carbon Dioxide 25.0 26.0 Anion Gap 10 10 BUN 38 H 40 H Creatinine 1.67 H 1.80 H Estim Creat Clear Calc 31.86 29.56 Est GFR (MDRD) Af Amer 40 L 36 L Est GFR (MDRD) Non-Af 33 L 30 L BUN/Creatinine Ratio 22.8 H 22.2 H Glucose 109 H 108 H Serum Osmolality Lactic Acid Calcium 8.4 L 8.2 L Total Bilirubin AST ALT Alkaline Phosphatase Troponin I B-Natriuretic Peptide Total Protein Albumin Globulin Albumin/Globulin Ratio Triglycerides Cholesterol LDL Cholesterol VLDL Cholesterol HDL Cholesterol Urine Color Urine Clarity Urine pH Ur Specific [place] Urine Protein Urine Glucose (UA) Urine Ketones Urine Occult Blood Urine Nitrite Urine Bilirubin Urine Urobilinogen Ur Leukocyte Esterase Urine RBC Urine WBC Ur Squamous Epith Cells Amorphous Sediment Urine Bacteria Urine Mucus Urine Osmolality Ur Random Sodium Urine Creatinine Hep Bs Antigen Hep Bs Antibody Hep B Core Total Ab MRSA (PCR) POC Glucose Microbiology 09/07/19 00:28 Mucosa - Nasopharyngeal Respiratory Panel (PCR) - Final 09/06/19 16:13 Mucosa - Nasopharyngeal Influenza Types A,B Direct FA (ANA) - Final Clinical Impression(s) from Imaging Studies Brain CT 09/06/19 15:06 IMPRESSION: There is minimal pneumocephaly of the parasellar region bilaterally in the medial right temporal fossa. There is minimal subcutaneous air of the left and right cheek regions, and medial right orbit, and bilateral frontal scalp. Electronically Signed: Judd Cooper MD at 17:06 EST , Service support , ADDENDUM: 09/06/19 1724 IMPRESSION: There is minimal pneumocephaly of the parasellar region bilaterally in the medial right temporal fossa. There is minimal subcutaneous air of the left and right cheek regions, and medial right orbit, and bilateral frontal scalp. N.B. : The above information has been verbally conveyed by Judd Cooper MD to Jurgen Stephenson MD, , on 09/06/2019 17:17:29 (ET). Electronically Signed: Judd Cooper MD at 17:06 EST , Service support , Chest X-Ray 09/06/19 15:10 IMPRESSION: Mild cardiomegaly with the findings in keeping with CHF and bibasilar atelectasis and small effusions worse on the right side. Electronically Signed: Pop Pimentel, at 15:24 EST , Service support , Chest CT 09/07/19 06:53 IMPRESSION: 1. Cardiomegaly and pulmonary venous congestion. 2. Bilateral lower lobes infiltrate/atelectasis. 3. Small bilateral pleural effusions larger on the right side which could be loculated on the right side. 4. Mediastinal lymphadenopathy. 5. Follow-up examination following treatment with contrast might be of further value. 6. Liver lesions likely representing cysts. Electronically Signed: Bartolome Gaona MD at 8:50 EST Tel , Service support , Medical Necessity - Tobacco Use Smoking Status: Never smoker Tobacco Use: Non-smoker Assessment/Plan All Active Problems Hyponatremia (Acute) RECOMMENDATIONS: 1. Continue empiric antimicrobials. If cultures are negative, antibiotics can be discontinued. 2. Continue sodium correction/volume status management per nephrology recommendations. 3. Conservative use of sedating medications. 4. Encourage incentive spirometer use and mobilize patient as tolerated. 5. The patient is medically stable for transfer out of the intensive care unit. IMPRESSIONS: 1. Acute metabolic/toxic encephalopathy Improved. I do suspect that the patient's altered mentation was secondary to worsening renal insufficiency and concurrent use of sedating medications, with inability to clear metabolites. In addition, given that amyloidosis has the ability to affect multi systems, it is possibility that this may be contributing to her altered mentation as well. I cannot discount the possibility of infectious contributions either. At this time, empiric antimicrobial therapy will be continued, pending infectious work-up. I would recommend conservative use of sedating medications. 2. Non-ST segment elevation IL/possible underlying cardiomyopathy While she has never previously been identified as having any cardiac pathology, given her diagnosis of amyloidosis, a surface echocardiogram was obtained to evaluate for the presence of an underlying cardiomyopathy. Her ejection fraction appears to be preserved. Her volume status and sodium have been optimized with dialysis per nephrology recommendations. 3. Acute on chronic kidney disease/hyponatremia/hypochloremia Improving. The patient has been followed by a machine rough rounder in [facility]. She was previously diagnosed with AA amyloidosis, via kidney biopsy. Nephrology is currently following to assist with management. 4. History of AA amyloidosis/hypertension/rheumatoid arthritis/chronic pain syndrome/chronic prednisone dependency Complicates care, management, recovery and prognosis. Continue to hold sedating medications at this time. Okay to continue baseline low-dose prednisone therapy. This note was generated with [employer] dictation software. It may contain incorrect words, spelling, and punctuation that were not noted in checking the note before signing. Code Visit Inpatient E&M: 14855 Subs Hosp L3
[2019-09-08] MEDS: Metoprolol(XL)Succ 50 MG Tablet PO ×2 (09:40→21:09)
[2019-09-08] MEDS: predniSONE 5 MG Tablet 2.5 MG PO ×2 (09:40→17:15)
[2019-09-08] MEDS: Enoxaparin 30 MG/0.3 ML Syringe SC (09:41)
--- NOTE | 2019-09-08 11:30 | PCM.PN.CARD ---
Subjectve: Patient states that she is still continues to have symptoms of muscle aches and generalized tiredness. Denies any symptoms of chest discomfort or shortness of breath she was sitting in a chair next to her bed Objective: Vital Signs Temp Pulse Resp BP Pulse Ox 97.3 F L 85 14 132/59 H 97 09/08/19 08:00 09/08/19 09:40 09/08/19 08:00 09/08/19 08:00 09/08/19 08:00 Oxygen Delivery Method Room Air Weight: 200 lb 13.458 oz Body Mass Index (BMI) 33.2 Finger Stick Blood Glucose 143 Intake and Output for Last 24 Hours 09/06/19 09/07/19 09/08/19 23:59 23:59 23:59 Intake Total 1542.5 / 1542.5 1320 / 1370 130 / 130 Output Total 600 / 1200 2800 / 3150 550 / 550 Balance 942.5 / 342.5 -1480 / -1780 -420 / -420 General: Healthy Appearing HEENT: Atraumatic, Normocephalic Oral: Dry Mucosa Neck: Supple Lungs: Clear to auscultation Cardiovascular: Regular Rhythm Abdomen: Bowel Sounds Present, Soft, Non Tender, No HSM, No Organomegaly Extremities: Bilateral Edema +1 09/08/19 00:30: Sodium 123 L, Potassium 3.2 L, Chloride 88 L, Carbon Dioxide 25.0, Anion Gap 10, BUN 38 H, Creatinine 1.67 H, Est GFR (MDRD) Af Amer 40 L, Est GFR (MDRD) Non-Af 33 L, BUN/Creatinine Ratio 22.8 H, Glucose 109 H, Calcium 8.4 L 09/08/19 04:15: WBC 14.0 H, RBC 4.63, Hgb 11.6 L, Hct 34.8 L, MCV 75.2 L, MCH 25.1 L, MCHC 33.3, Plt Count 440, MPV 8.9, Immature Gran % (Auto) 0.400, Neut % (Auto) 87.9 H, Lymph % (Auto) 6.7 L, [place] % (Auto) 4.9, Eos % (Auto) 0.0, Baso % (Auto) 0.1, Absolute Neuts (auto) 12.3 H, Nucleated RBC % 0 09/08/19 04:15: Sodium 122 L, Potassium 3.1 L, Chloride 86 L, Carbon Dioxide 26.0, Anion Gap 10, BUN 40 H, Creatinine 1.80 H, Est GFR (MDRD) Af Amer 36 L, Est GFR (MDRD) Non-Af 30 L, BUN/Creatinine Ratio 22.2 H, Glucose 108 H, Calcium 8.2 L Rhythm: EKG: ECHO: Stress Test: Cardiac Cath: PCI: CT Surgery: Holter monitor: EPS: PPM: CXR: Chest CT Scan: Medical Necessity - Tobacco Use Smoking Status: Never smoker Tobacco Use: Non-smoker Assessment/Plan 1 Metabolic Encephalopathy possibly secondary to severe hyponatremia and this is improving. 2. EKG showing evidence of sinus rhythm with T wave inversions in the high lateral leads I aVL as well as in V5 and V6 suggesting of underlying ischemia. Given her multiple risk factors include diabetes mellitus sedentary lifestyle obesity chronic kidney disease I would not be surprised if she has any underlying ischemic heart disease. But this should be addressed once her acute metabolic encephalopathy is cleared by a functional study probably a pharmacological stress myocardial perfusion study prior to the hospital discharge. 3. Elevated troponins with a flat trend indicating that the troponins are false positive secondary to acute on chronic kidney disease/ 4. Rheumatoid arthritis for which she remains on maintenance dose of prednisone 5. Hypertension for which she remains on losartan. Blood pressures poorly controlled and I would initiate the patient was inititated on metoprolol succinate 50 mg twice a day for rate control as well as for hypertension to decrease ischemic demand and shehas been tolerating this well. 6. Dyslipidemia- LDL was 121mg% but as pt continues to complain of body aches and muscle aches I would holf off on adding any statins and correct her hypokalemia and check her magnesium levels and phosphorurs levels and supplement. Will consider initiating on high intensity statin at a lower dose prior to hospital discharge. 7. Pedal edema- needs to be on maintainence dose of diuretics avoiding hyponatremia.
[2019-09-08] MEDS: ALPRAZolam 0.5 MG Tablet PO ×2 (11:45→22:27)
[2019-09-08 12:19] LABS: Magnesium 2.3 mg/dL (1.6-2.6)
--- NOTE | 2019-09-08 16:38 | PN.RENAL_ITS ---
Patient Problems: Active and Suspected Problems Hyponatremia (Acute) Subjective: Mentation is better. still complaining of generalized body aches No headache. No SOB No nausea vomiting - Physical Exam Vitals/I&O's: Vital Signs Temp Pulse Resp BP Pulse Ox 97.7 F L 81 18 117/60 98 09/08/19 14:00 09/08/19 15:32 09/08/19 14:00 09/08/19 14:00 09/08/19 14:00 Oxygen Delivery Method Room Air Weight: 91.1 kg Body Mass Index (BMI) 33.2 Finger Stick Blood Glucose 143 Intake and Output for Last 24 Hours 09/06/19 09/07/19 09/08/19 23:59 23:59 23:59 Intake Total 1542.5 / 1542.5 1320 / 1370 610 / 610 Output Total 600 / 1200 2800 / 3150 750 / 750 Balance 942.5 / 342.5 -1480 / -1780 -140 / -140 General: Alert, Cooperative HEENT: Atraumatic Oral: Moist Mucosa, Dry Mucosa Neck: Supple, No JVD Lungs: Clear to auscultation, Normal air movement, No rhonchi Cardiovascular: Regular rate, Regular Rhythm, Normal S1, Normal S2 Abdomen: Bowel Sounds Present, Soft, Non Tender, Non-Distended Extremities: No clubbing Skin: No rashes Musculoskeletal: No Muscle Wasting Lymphatic: No Cervical, Supraclavicular, or Inguinal Adenopathy Neurological: Cranial nerves II-XII grossly intact, Neuro grossly intact Psych/Mental Status: Appropriate Microbiology Past 72 Hours 09/06/19 21:30 Urine Catheter - Rivas Urine Culture - Preliminary Culture exhibits no growth. 09/07/19 00:28 Mucosa - Nasopharyngeal Respiratory Panel (PCR) - Final 09/06/19 16:13 Mucosa - Nasopharyngeal Influenza Types A,B Direct FA (ANA) - Final Laboratory Results 09/08/19 00:30: Hep B Core Total Ab Pending 09/08/19 00:30: Hep Bs Antigen Pending, Hep Bs Antibody Pending 09/08/19 00:30: Sodium 123 L, Potassium 3.2 L, Chloride 88 L, Carbon Dioxide 25.0, Anion Gap 10, BUN 38 H, Creatinine 1.67 H, Estim Creat Clear Calc 31.86, Est GFR (MDRD) Af Amer 40 L, Est GFR (MDRD) Non-Af 33 L, BUN/Creatinine Ratio 22.8 H, Glucose 109 H, Calcium 8.4 L 09/08/19 00:30: Magnesium 2.3 09/08/19 04:15: WBC 14.0 H, RBC 4.63, Hgb 11.6 L, Hct 34.8 L, MCV 75.2 L, MCH 25.1 L, MCHC 33.3, RDW Std Deviation 45.6 H, RDW Coeff of Mika 16.9 H, Plt Count 440, MPV 8.9, Immature Gran % (Auto) 0.400, Neut % (Auto) 87.9 H, Lymph % (Auto) 6.7 L, Bartholomew % (Auto) 4.9, Eos % (Auto) 0.0, Baso % (Auto) 0.1, Absolute Neuts (auto) 12.3 H, Absolute Lymphs (auto) 0.94, Nucleated RBC % 0 09/08/19 04:15: Sodium 122 L, Potassium 3.1 L, Chloride 86 L, Carbon Dioxide 26.0, Anion Gap 10, BUN 40 H, Creatinine 1.80 H, Estim Creat Clear Calc 29.56, Est GFR (MDRD) Af Amer 36 L, Est GFR (MDRD) Non-Af 30 L, BUN/Creatinine Ratio 22.2 H, Glucose 108 H, Calcium 8.2 L Current Medications Acetaminophen (Tylenol) 650 mg PO Q6H PRN PRN PRN Reason: Pain Score 1-3/Temp > 100.7 F Last Admin: 09/07/19 19:11 Dose: 650 mg Documented by: Alprazolam (Xanax) 0.5 mg PO TID PRN PRN PRN Reason: ANXIETY Last Admin: 09/08/19 11:45 Dose: 0.5 mg Documented by: Enoxaparin Sodium (Lovenox) 30 mg SC DAILY [facility] Last Admin: 09/08/19 09:41 Dose: 30 mg Documented by: Hydralazine HCl (Apresoline Iv) 10 mg IV Q4H PRN PRN PRN Reason: SBP >160 Last Admin: 09/07/19 12:47 Dose: 10 mg Documented by: Cefepime HCl 1 gm/ Sodium (Chloride) 50 mls @ 100 mls/hr IV QHS [facility] Last Infusion: 09/07/19 23:38 Dose: Infused Documented by: Sodium Chloride () 250 mls @ 15 mls/hr IV .[id number] PRN PRN Reason: Saline Flush Sodium Chloride () 250 mls @ 15 mls/hr IV .[id number] PRN PRN Reason: Additional IVPB Infusion Metoprolol Succinate (Toprol Xl (Beta Azra)) 50 mg PO BID [facility] Last Admin: 09/08/19 09:40 Dose: 50 mg Documented by: Nitroglycerin (Nitrostat) 0.4 mg SUBLINGUAL Q5M PRN PRN Reason: CARDIAC/CHEST PAIN Nutritional Formula (Lactose Free) (Ensure Enlive) 120 ml PO 4X/DAY [facility] Ondansetron HCl (Zofran) 4 mg IV Q8H PRN PRN PRN Reason: NAUSEA/VOMITING Oxycodone HCl (Oxyir) 5 mg PO Q6H PRN PRN PRN Reason: Pain Score 6-10/10 Last Admin: 09/08/19 11:46 Dose: 5 mg Documented by: [facility] Last Admin: 09/08/19 09:40 Dose: 2.5 mg Documented by: Sodium Chloride () 10 - 40 ml IV UD PRN PRN Reason: SALINE FLUSH Last Admin: 09/07/19 12:48 Dose: 10 ml Documented by: Medical Necessity - Tobacco Use Smoking Status: Never smoker Tobacco Use: Non-smoker Assessment/Plan All Active Problems Hyponatremia (Acute) 1- Hyponatremia : Pt has been on SSRI at home so patient could have SIADH induced by SSRI at baseline Na improved with HD with 130 Na dialysate. Na increased to 123 then dropped to 122 I still believe the patient is dehydrated from poor oral intake and the severe diarrhea she had for one day before admission Will start the patient on NS at 100 cc/hour urine study showed urine Na > 30 and Urin osmolality > 300 but I believe urine study was done while the patient is on lasix Will continue to monitor Na level Q 4 hours Avoid thiazide diuretics 2- [id number] on CKD stage.3. Pt follows with neonatal specialist in [facility] Likely prerenal from dehydration. Pt had HD session for the 1st time on 09/07 for hyponatremia Pt is making urine Will start NS and monitor RPF and UOP Continue holding home ARB 3- Hypokalemia: from GI loss. Will add KCl to NS 4- Sepsis On Abx as per primary service Will continue to follow Please call if any question Gabriela Franks MD
[2019-09-08] MEDS: Acetaminophen 325 MG Tablet 650 MG PO (17:11)
[2019-09-08] MEDS: 0.9% Saline Lock 10 ML Syringe IV ×3 (17:11→22:34)
--- NOTE | 2019-09-08 17:19 | PN_ITS ---
Patient Problems: Active and Suspected Problems Hyponatremia (Acute) Subjective: Patient was seen and examined today, she appeared more appropriate mentally today, she requested her Xanax to be restarted-I am reluctant to give her her outpatient dose of Xanax instead I have cut it in half. Patient's sodium today was 122. Patient appears stable for transfer to PCU at this time. Patient denies any fevers, chills, or chest pain. - Physical Exam Vitals/I&O's: Vital Signs Temp Pulse Resp BP Pulse Ox 97.7 F L 81 18 117/60 98 09/08/19 14:00 09/08/19 15:32 09/08/19 14:00 09/08/19 14:00 09/08/19 14:00 Oxygen Delivery Method Room Air Weight: 91.1 kg Body Mass Index (BMI) 33.2 Finger Stick Blood Glucose 143 Intake and Output for Last 24 Hours 09/06/19 09/07/19 09/08/19 23:59 23:59 23:59 Intake Total 1542.5 / 1542.5 1320 / 1370 610 / 610 Output Total 600 / 1200 2800 / 3150 750 / 750 Balance 942.5 / 342.5 -1480 / -1780 -140 / -140 General: Alert, Oriented x3, Cooperative, No apparent distress, Well developed HEENT: Atraumatic, PERRLA, EOMI, Normocephalic Oral: Moist Mucosa Neck: Supple, Trachea Midline, Thyroid Normal Size and Texture Lungs: Clear to auscultation, Normal air movement, No rhonchi, No wheeze, No rales Cardiovascular: Regular rate, Regular Rhythm, Normal S1, Normal S2, No murmurs, PMI Normal, No rub noted, No Gallop Abdomen: Bowel Sounds Present, Soft, Non Tender, Non-Distended Extremities: No clubbing, No cyanosis, No edema, Capillary Refill Less than 3 Seconds Skin: No rashes, No breakdown Musculoskeletal: No Tenderness to Palpation of Joints or Extremities Neurological: Cranial nerves II-XII grossly intact, Neuro grossly intact, Sensory exam intact to light touch and pain Psych/Mental Status: Normal Affect, Appropriate, Alert and oriented to time, place, person, mood and affect Microbiology Past 72 Hours 09/06/19 21:30 Urine Catheter - Rivas Urine Culture - Preliminary Culture exhibits no growth. 09/07/19 00:28 Mucosa - Nasopharyngeal Respiratory Panel (PCR) - Final 09/06/19 16:13 Mucosa - Nasopharyngeal Influenza Types A,B Direct FA (NAA) - Final Laboratory Results 09/08/19 00:30: Hep B Core Total Ab Pending 09/08/19 00:30: Hep Bs Antigen Pending, Hep Bs Antibody Pending 09/08/19 00:30: Sodium 123 L, Potassium 3.2 L, Chloride 88 L, Carbon Dioxide 25.0, Anion Gap 10, BUN 38 H, Creatinine 1.67 H, Estim Creat Clear Calc 31.86, Est GFR (MDRD) Af Amer 40 L, Est GFR (MDRD) Non-Af 33 L, BUN/Creatinine Ratio 22.8 H, Glucose 109 H, Calcium 8.4 L 09/08/19 00:30: Magnesium 2.3 09/08/19 04:15: WBC 14.0 H, RBC 4.63, Hgb 11.6 L, Hct 34.8 L, MCV 75.2 L, MCH 25.1 L, MCHC 33.3, RDW Std Deviation 45.6 H, RDW Coeff of Mika 16.9 H, Plt Count 440, MPV 8.9, Immature Gran % (Auto) 0.400, Neut % (Auto) 87.9 H, Lymph % (Auto) 6.7 L, Bond % (Auto) 4.9, Eos % (Auto) 0.0, Baso % (Auto) 0.1, Absolute Neuts (auto) 12.3 H, Absolute Lymphs (auto) 0.94, Nucleated RBC % 0 09/08/19 04:15: Sodium 122 L, Potassium 3.1 L, Chloride 86 L, Carbon Dioxide 26.0, Anion Gap 10, BUN 40 H, Creatinine 1.80 H, Estim Creat Clear Calc 29.56, Est GFR (MDRD) Af Amer 36 L, Est GFR (MDRD) Non-Af 30 L, BUN/Creatinine Ratio 22.2 H, Glucose 108 H, Calcium 8.2 L Current Medications Acetaminophen (Tylenol) 650 mg PO Q6H PRN PRN PRN Reason: Pain Score 1-3/Temp > 100.7 F Last Admin: 09/08/19 17:11 Dose: 650 mg Documented by: Alprazolam (Xanax) 0.5 mg PO TID PRN PRN PRN Reason: ANXIETY Last Admin: 09/08/19 11:45 Dose: 0.5 mg Documented by: Enoxaparin Sodium (Lovenox) 30 mg SC DAILY [facility]PLAC[facility] BY [facility] Last Admin: 09/08/19 09:41 Dose: 30 mg Documented by: Hydralazine HCl (Apresoline Iv) 10 mg IV Q4H PRN PRN PRN Reason: SBP >160 Last Admin: 09/07/19 12:47 Dose: 10 mg Documented by: Cefepime HCl 1 gm/ Sodium (Chloride) 50 mls @ 100 mls/hr IV QHS [facility]PLACED BY [facility] Last Infusion: 09/07/19 23:38 Dose: Infused Documented by: Sodium Chloride () 250 mls @ 15 mls/hr IV .[id number] PRN PRN Reason: Saline Flush Sodium Chloride () 250 mls @ 15 mls/hr IV .[id number] PRN PRN Reason: Additional IVPB Infusion Potassium Chloride/Sodium Chloride () 1,000 mls @ 100 mls/hr IV .Q10H REPLACED BY [facility] Last Admin: 09/08/19 17:09 Dose: 100 mls/hr Documented by: Metoprolol Succinate (Toprol Xl (Beta Azra)) 50 mg PO BID [facility]PL[facility] Last Admin: 09/08/19 09:40 Dose: 50 mg Documented by: Nitroglycerin (Nitrostat) 0.4 mg SUBLINGUAL Q5M PRN PRN Reason: CARDIAC/CHEST PAIN Nutritional Formula (Lactose Free) (Ensure Enlive) 120 ml PO 4X/DAY REPLACED BY [facility] Last Admin: 09/08/19 17:19 Dose: 120 ml Documented by: Ondansetron HCl (Zofran) 4 mg IV Q8H PRN PRN PRN Reason: NAUSEA/VOMITING Oxycodone HCl (Oxyir) 5 mg PO Q6H PRN PRN PRN Reason: Pain Score 6-10/10 Last Admin: 09/08/19 11:46 Dose: 5 mg Documented by: [facility] () [facility] Last Admin: 09/08/19 17:15 Dose: 2.5 mg Documented by: Sodium Chloride () 10 - 40 ml IV UD PRN PRN Reason: SALINE FLUSH Last Admin: 09/08/19 17:11 Dose: 10 ml Documented by: Medical Necessity - Tobacco Use Smoking Status: Never smoker Tobacco Use: Non-smoker Assessment/Plan All Active Problems Hyponatremia (Acute) #1 hyponatremia-etiology unclear at this point, patient's family states that she drinks a lot of water at home, nephrology is participating in her care at this time #2 leukocytosis-etiology unclear, monitor labs, pulmonary medicine has the pat ient on antibiotics-these will be continued for now #3 Metabolic encephalopathy-etiology unclear at this time, continue to monitor, this has improved #4 chronic kidney disease stage III #5 elevated troponin secondary to chronic kidney disease #6 essential hypertension #7 pulmonary hypertension #8 amyloidosis Code Visit Inpatient E&M: 29018 Subs Hosp L2
--- NOTE | 2019-09-08 18:35 | NURSING ---
pt has not voided since stratton was taken out in icu. This nurse assisted pt in ambulating to bathroom. Pt unable to void. Pt is on dialysis.
[2019-09-08 22:13] LABS: Sodium Level 122 mmol/L (136-145)
[2019-09-09] VITALS (12 sets, daily range): BP systolic 114–193; BP diastolic 63–93; PULSE 63–83; RESP 16–18; TEMP 36.3–36.9; O2SAT 96–100
[2019-09-09] MEDS: 0.9% Saline Lock 10 ML Syringe IV ×2 (02:38→05:16)
[2019-09-09 05:34] LABS: Absolute Lymphocyte Count 1.78 X10^3/uL (0.83-4.51); Absolute Neutrophil Count 8.4 X10^3/uL (2.0-7.7); Basophil# 0.02 X10^3/uL; Basophil% 0.2 % (0-1); Eosinophil# 0.06 X10^3/uL; Eosinophils% 0.5 % (0-5); Hematocrit 34.3 % (37-47); Hemoglobin 10.9 g/dL (12.0-15.0); Lymphocyte # 1.78 X10^3/ul (4.0); Mean Corp Hgb Conc 31.8 g/dL (32-36); Mean Corpuscular Hgb 24.8 pg (27.0-32.0); Mean Corpuscular Volume 78.1 fL (81-99); Mean Platelet Vol. 9.1 fl (6.2-12.0); Monocyte# 0.84 X10^3/uL; Monocyte% 7.5 % (0-10); NRBC Flagged by Analyzer 0 % (0-5); Neutrophil # 8.36 X10^3/uL (2.7-7.7); Neutrophil % 75.2 % (47-70); Platelet Count 428 K/mm3 (150-450); RBC Distribution Width CV 17.2 % (11.6-14.6); RBC Distribution Width SD 49.2 fl (35.1-43.9); Red Blood Count 4.39 M/mm3 (4.2-5.4); White Blood Count 11.1 K/mm3 (4.4-11.0)
[2019-09-09 05:57] LABS: Anion Gap 9 (5-15); BUN 51 mg/dL (7-18); BUN/Creat Ratio 21.7 RATIO (10-20); Calcium,Total 7.9 mg/dL (8.5-10.1); Chloride 89 mmol/L (98-107); Creatinine, Serum 2.35 mg/dL (0.55-1.02); EST Glomerular Filtration Rate 22 mL/min (>60); Est Glom Filt Rate - Afr Amer 27 mL/min (>60); Estimated Creatinine Clearance 22.64 ml/min; Glucose 104 mg/dL (74-106); Potassium 4.4 mmol/L (3.5-5.1); Sodium Level 122 mmol/L (136-145)
--- NOTE | 2019-09-09 07:48 | NURSING ---
Straight cath per dr order, patient did not void this shift. 600 ml of cloudy yellow urine emptied, urine osmolality and urine sodium sent to lab. procedure well tolerated.
[2019-09-09 08:12] LABS: Urine Sodium 9 mmol/L (Not Establ.)
[2019-09-09 08:20] LABS: Osmolality, Urine 284 mOsm/KG
--- NOTE | 2019-09-09 08:52 | PN_ITS ---
Subjective: Patient did well overnight. No acute issues were reported. Patient is alert and oriented this morning, but reports significant pain. Patient states this is unchanged in character from her baseline. General: Alert, Oriented x3, Cooperative, No apparent distress, - - Flat affect. HEENT: Atraumatic, PERRLA, EOMI, Normocephalic, - - No scleral icterus or injection noted Oral: Moist Mucosa, No Gingival or Mucosal Lesions/ Ulcerations Neck: Supple, No JVD, No Nodes, Trachea Midline Lungs: No rhonchi, No wheeze, No rales, Diminished, - - Fair effort. Cardiovascular: Regular rate, Regular Rhythm, Normal S1, Normal S2, No murmurs, No rub noted, No Gallop Abdomen: Bowel Sounds Present, Soft, Non Tender, Non-Distended, Obese Extremities: No clubbing, No cyanosis, Edema - Generalized, including hands Skin: No rashes, No breakdown Musculoskeletal: No Tenderness to Palpation of Joints or Extremities Lymphatic: No Cervical, Supraclavicular, or Inguinal Adenopathy Neurological: Cranial nerves II-XII grossly intact, Neuro grossly intact, Motor Exam 5/5 strength throughout Psych/Mental Status: Appropriate, Flat Affect Vital Signs Temp Pulse Resp BP Pulse Ox 36.6 C 73 18 114/63 97 09/09/19 02:15 09/09/19 06:59 09/09/19 02:15 09/09/19 02:15 09/09/19 02:15 Oxygen Delivery Method Room Air Weight: 91.1 kg Body Mass Index (BMI) 33.2 Finger Stick Blood Glucose 143 Intake and Output for Last 24 Hours 09/07/19 09/08/19 09/09/19 23:59 23:59 23:59 Intake Total 1320 / 1370 1020 / 1320 1446.67 / 1446.67 Output Total 2800 / 3150 750 / 750 600 / 600 Balance -1480 / -1780 270 / 570 846.67 / 846.67 Labs (Last 48 Hours) 09/07/19 09/07/19 09/08/19 08:00 08:27 00:30 WBC RBC Hgb Hct MCV MCH MCHC RDW Std Deviation RDW Coeff of Mika Plt Count MPV Immature Gran % (Auto) Neut % (Auto) Lymph % (Auto) Hutchinson % (Auto) Eos % (Auto) Baso % (Auto) Absolute Neuts (auto) Absolute Lymphs (auto) Nucleated RBC % Platelet Estimate ADEQUATE Anisocytosis RARE Microcytosis 1+ Sodium Potassium Chloride Carbon Dioxide Anion Gap BUN Creatinine Estim Creat Clear Calc Est GFR (MDRD) Af Amer Est GFR (MDRD) Non-Af BUN/Creatinine Ratio Glucose Calcium Magnesium Urine Osmolality Ur Random Sodium Hep Bs Antigen Hep Bs Antibody Hep B Core Total Ab Pending MRSA (PCR) Negative 09/08/19 09/08/19 09/08/19 00:30 00:30 00:30 WBC RBC Hgb Hct MCV MCH MCHC RDW Std Deviation RDW Coeff of Mika Plt Count MPV Immature Gran % (Auto) Neut % (Auto) Lymph % (Auto) Hutchinson % (Auto) Eos % (Auto) Baso % (Auto) Absolute Neuts (auto) Absolute Lymphs (auto) Nucleated RBC % Platelet Estimate Anisocytosis Microcytosis Sodium 123 L Potassium 3.2 L Chloride 88 L Carbon Dioxide 25.0 Anion Gap 10 BUN 38 H Creatinine 1.67 H Estim Creat Clear Calc 31.86 Est GFR (MDRD) Af Amer 40 L Est GFR (MDRD) Non-Af 33 L BUN/Creatinine Ratio 22.8 H Glucose 109 H Calcium 8.4 L Magnesium 2.3 Urine Osmolality Ur Random Sodium Hep Bs Antigen Pending Hep Bs Antibody Pending Hep B Core Total Ab MRSA (PCR) 09/08/19 09/08/19 09/08/19 04:15 04:15 21:40 WBC 14.0 H RBC 4.63 Hgb 11.6 L Hct 34.8 L MCV 75.2 L MCH 25.1 L MCHC 33.3 RDW Std Deviation 45.6 H RDW Coeff of Mika 16.9 H Plt Count 440 MPV 8.9 Immature Gran % (Auto) 0.400 Neut % (Auto) 87.9 H Lymph % (Auto) 6.7 L Hutchinson % (Auto) 4.9 Eos % (Auto) 0.0 Baso % (Auto) 0.1 Absolute Neuts (auto) 12.3 H Absolute Lymphs (auto) 0.94 Nucleated RBC % 0 Platelet Estimate Anisocytosis Microcytosis Sodium 122 L 122 L Potassium 3.1 L Chloride 86 L Carbon Dioxide 26.0 Anion Gap 10 BUN 40 H Creatinine 1.80 H Estim Creat Clear Calc 29.56 Est GFR (MDRD) Af Amer 36 L Est GFR (MDRD) Non-Af 30 L BUN/Creatinine Ratio 22.2 H Glucose 108 H Calcium 8.2 L Magnesium Urine Osmolality Ur Random Sodium Hep Bs Antigen Hep Bs Antibody Hep B Core Total Ab MRSA (PCR) 09/09/19 09/09/19 09/09/19 05:10 05:10 07:30 WBC 11.1 H RBC 4.39 Hgb 10.9 L Hct 34.3 L MCV 78.1 L MCH 24.8 L MCHC 31.8 L RDW Std Deviation 49.2 H RDW Coeff of Mika 17.2 H Plt Count 428 MPV 9.1 Immature Gran % (Auto) 0.600 Neut % (Auto) 75.2 H Lymph % (Auto) 16.0 L Hutchinson % (Auto) 7.5 Eos % (Auto) 0.5 Baso % (Auto) 0.2 Absolute Neuts (auto) 8.4 H Absolute Lymphs (auto) 1.78 Nucleated RBC % 0 Platelet Estimate Anisocytosis Microcytosis Sodium 122 L Potassium 4.4 Chloride 89 L Carbon Dioxide 24.0 Anion Gap 9 BUN 51 H Creatinine 2.35 H Estim Creat Clear Calc 22.64 Est GFR (MDRD) Af Amer 27 L Est GFR (MDRD) Non-Af 22 L BUN/Creatinine Ratio 21.7 H Glucose 104 Calcium 7.9 L Magnesium Urine Osmolality 284 Ur Random Sodium Hep Bs Antigen Hep Bs Antibody Hep B Core Total Ab MRSA (PCR) 09/09/19 07:30 WBC RBC Hgb Hct MCV MCH MCHC RDW Std Deviation RDW Coeff of Mika Plt Count MPV Immature Gran % (Auto) Neut % (Auto) Lymph % (Auto) Hutchinson % (Auto) Eos % (Auto) Baso % (Auto) Absolute Neuts (auto) Absolute Lymphs (auto) Nucleated RBC % Platelet Estimate Anisocytosis Microcytosis Sodium Potassium Chloride Carbon Dioxide Anion Gap BUN Creatinine Estim Creat Clear Calc Est GFR (MDRD) Af Amer Est GFR (MDRD) Non-Af BUN/Creatinine Ratio Glucose Calcium Magnesium Urine Osmolality Ur Random Sodium 9 Hep Bs Antigen Hep Bs Antibody Hep B Core Total Ab MRSA (PCR) Microbiology 09/06/19 21:30 Urine Catheter - Rivas Urine Culture - Preliminary Culture exhibits no growth. 09/07/19 00:28 Mucosa - Nasopharyngeal Respiratory Panel (PCR) - Final Medical Necessity - Tobacco Use Smoking Status: Never smoker Tobacco Use: Non-smoker Assessment/Plan All Active Problems Hyponatremia (Acute) RECOMMENDATIONS: 1. Continue empiric antimicrobials. Okay to discontinue antibiotics if culture negative at 48 hours 2. Continue sodium correction/volume status management per nephrology recommendations. 3. Conservative use of sedating medications. 4. Encourage incentive spirometer use and mobilize patient as tolerated. 5. Dynamically stable on room air. Will sign off from a critical care perspective IMPRESSIONS: 1. Acute metabolic/toxic encephalopathy Patient appears to be at her baseline at this time. Patient does have worsening renal function and did improve with hemodialysis. Patient does have amyloidosis, which could theoretically also lead to encephalopathy. Patient is on empiric antibiotics. These can be continued until cultures are negative. However, patient is currently hemodynamically stable on room air. Will sign off from a critical care perspective 2. Non-ST segment elevation [place]/possible underlying cardiomyopathy Patient's echocardiogram was relatively unremarkable. Her volume status and sodium have been optimized with dialysis per nephrology recommendations. 3. Acute on chronic kidney disease/hyponatremia/hypochloremia Improving. The patient has been followed by a automobile mechanic radiator in [facility]. She was previously diagnosed with AA amyloidosis, via kidney biopsy. Nephrology is currently following to assist with management. 4. History of AA amyloidosis/hypertension/rheumatoid arthritis/chronic pain syndrome/chronic prednisone dependency Complicates care, management, recovery and prognosis. Continue to hold sedating medications at this time. Okay to continue baseline low-dose prednisone therapy. No indication for stress dose steroids in my perspective. Code Visit Inpatient E&M: 16409 Subs Hosp L2
[2019-09-09] MEDS: Enoxaparin 30 MG/0.3 ML Syringe SC (09:32)
[2019-09-09] MEDS: oxyCODONE 5 MG Tablet PO ×2 (09:33→18:04)
[2019-09-09] MEDS: predniSONE 5 MG Tablet 2.5 MG PO ×2 (09:33→18:05)
[2019-09-09] MEDS: Metoprolol(XL)Succ 50 MG Tablet PO ×2 (09:33→21:44)
[2019-09-09 10:56] LABS: Hepatitis B Surface Antibody Non-Reactive; Hepatitis B Surface Antigen Non-Reactive (Nonreactive)
--- NOTE | 2019-09-09 12:35 | CASEMGMT ---
BELKYS COTTRELL NOTE: Reviewed PT/OT notes. Further therapy recommended. BELKYS COTTRELL to room to talk with pt and who is at bedside. Discussed options of therapy, including HHC and OP therapy. They decline HHC or OP therapy at this time. Pt states she would like to work with therapy again today to get some exercise Pt/ state they would like the therapists here to go over exercises pt can do at home. Therapy staff notified and state will be in to work with pt soon. Pt/ made aware to talk to PCP if they decide, in the future, that pt would like further therapy. They voice understanding. Iwona RUVALCABA RN CM
--- NOTE | 2019-09-09 13:01 | PN.RENAL_ITS ---
Patient Problems: Active and Suspected Problems Hyponatremia (Acute) Subjective: no cp/sob - Physical Exam Vitals/I&O's: Vital Signs Temp Pulse Resp BP Pulse Ox 98.4 F 76 16 129/76 H 98 09/09/19 08:15 09/09/19 09:33 09/09/19 08:15 09/09/19 08:15 09/09/19 08:15 Oxygen Delivery Method Room Air Weight: 91.1 kg Body Mass Index (BMI) 33.2 Finger Stick Blood Glucose 143 Intake and Output for Last 24 Hours 09/07/19 09/08/19 09/09/19 23:59 23:59 23:59 Intake Total 1320 / 1370 1020 / 1320 1446.67 / 1446.67 Output Total 2800 / 3150 750 / 750 600 / 600 Balance -1480 / -1780 270 / 570 846.67 / 846.67 General: Alert, Oriented x3, Cooperative HEENT: Atraumatic, PERRLA, EOMI, Normocephalic Neck: Supple, No JVD, Negative Carotid Bruits Lungs: Clear to auscultation, Normal air movement Cardiovascular: Regular rate, No murmurs Abdomen: Bowel Sounds Present, Soft, Non Tender Extremities: Capillary Refill Less than 3 Seconds, Edema Skin: No rashes, No breakdown Musculoskeletal: No Tenderness to Palpation of Joints or Extremities Neurological: Cranial nerves II-XII grossly intact Psych/Mental Status: Normal Affect, Appropriate Microbiology Past 72 Hours 09/06/19 21:30 Urine Catheter - Rivas Urine Culture - Final Culture exhibits no growth. 09/07/19 00:28 Mucosa - Nasopharyngeal Respiratory Panel (PCR) - Final 09/06/19 16:13 Mucosa - Nasopharyngeal Influenza Types A,B Direct FA (ANA) - Final Laboratory Results 09/08/19 00:30: Hep Bs Antigen Non-Reactive, Hep Bs Antibody Non-Reactive 09/08/19 21:40: Sodium 122 L 09/09/19 05:10: WBC 11.1 H, RBC 4.39, Hgb 10.9 L, Hct 34.3 L, MCV 78.1 L, MCH 24.8 L, MCHC 31.8 L, RDW Std Deviation 49.2 H, RDW Coeff of Mika 17.2 H, Plt Count 428, MPV 9.1, Immature Gran % (Auto) 0.600, Neut % (Auto) 75.2 H, Lymph % (Auto) 16.0 L, [place] % (Auto) 7.5, Eos % (Auto) 0.5, Baso % (Auto) 0.2, Absolute Neuts (auto) 8.4 H, Absolute Lymphs (auto) 1.78, Nucleated RBC % 0 09/09/19 05:10: Sodium 122 L, Potassium 4.4, Chloride 89 L, Carbon Dioxide 24.0, Anion Gap 9, BUN 51 H, Creatinine 2.35 H, Estim Creat Clear Calc 22.64, Est GFR (MDRD) Af Amer 27 L, Est GFR (MDRD) Non-Af 22 L, BUN/Creatinine Ratio 21.7 H, Glucose 104, Calcium 7.9 L 09/09/19 07:30: Urine Osmolality 284 09/09/19 07:30: Ur Random Sodium 9 Current Medications Acetaminophen (Tylenol) 650 mg PO Q6H PRN PRN PRN Reason: Pain Score 1-3/Temp > 100.7 F Last Admin: 09/08/19 17:11 Dose: 650 mg Documented by: Alprazolam (Xanax) 0.5 mg PO TID PRN PRN PRN Reason: ANXIETY Last Admin: 09/08/19 22:27 Dose: 0.5 mg Documented by: Enoxaparin Sodium (Lovenox) 30 mg SC DAILY [facility] Last Admin: 09/09/19 09:32 Dose: 30 mg Documented by: Hydralazine HCl (Apresoline Iv) 10 mg IV Q4H PRN PRN PRN Reason: SBP >160 Last Admin: 09/07/19 12:47 Dose: 10 mg Documented by: Sodium Chloride () 250 mls @ 15 mls/hr IV .[id number] PRN PRN Reason: Saline Flush Last Infusion: 09/08/19 23:10 Dose: 15 mls/hr Documented by: Sodium Chloride () 250 mls @ 15 mls/hr IV .[id number] PRN PRN Reason: Additional IVPB Infusion Potassium Chloride/Sodium Chloride () 1,000 mls @ 100 mls/hr IV .Q10H [facility] Last Admin: 09/09/19 02:37 Dose: 100 mls/hr Documented by: Metoprolol Succinate (Toprol Xl (Beta Azra)) 50 mg PO BID [facility] Last Admin: 09/09/19 09:33 Dose: 50 mg Documented by: Nitroglycerin (Nitrostat) 0.4 mg SUBLINGUAL Q5M PRN PRN Reason: CARDIAC/CHEST PAIN Nutritional Formula (Lactose Free) (Ensure Enlive) 120 ml PO 4X/DAY [facility] Last Admin: 09/09/19 09:32 Dose: 120 ml Documented by: Ondansetron HCl (Zofran) 4 mg IV Q8H PRN PRN PRN Reason: NAUSEA/VOMITING Oxycodone HCl (Oxyir) 5 mg PO Q6H PRN PRN PRN Reason: Pain Score 6-10/10 Last Admin: 09/09/19 09:33 Dose: 5 mg Documented by: [facility] () [facility] Last Admin: 09/09/19 09:33 Dose: 2.5 mg Documented by: Sodium Chloride () 10 - 40 ml IV UD PRN PRN Reason: SALINE FLUSH Last Admin: 09/09/19 05:16 Dose: 20 ml Documented by: Medical Necessity - Tobacco Use Smoking Status: Never smoker Tobacco Use: Non-smoker Assessment/Plan All Active Problems Hyponatremia (Acute) Hyponatremia KHUSHBOO prerenal CKD only previous value of serum creatinine is 1.9 from last year no other values available LE edema HF no need for HD scr 2.5 SNa 122 stable fluid restriciton and lasix check renal US Avoid nephrotoxins and overdiuresis 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
--- NOTE | 2019-09-09 13:04 | US_ITS ---
STUDY: RENAL ULTRASOUND - COMPLETE REASON FOR EXAM: Female, 64 years old. ARF TECHNIQUE: Ultrasound evaluation of the kidneys was performed with real-time and static patterson-scale imaging. COMPARISON: None. FINDINGS: RIGHT KIDNEY: Normal location of the right kidney, which is normal in size. The right kidney measures 12.7 x 5.5 x 4.5 cm. There is a normal cortex of the right kidney. The renal cortex measures 1.2 cm. There is no right renal mass or cyst. There are no right renal calculi. There is no right hydronephrosis. Diffusely increased cortical echoes are noted consistent with nonspecific renal parenchymal disease DISTAL RIGHT URETER: There is non-visualization of the distal right ureter. There is no demonstrated right ureterovesical junction calculus. There is a visualized right ureteral jet. LEFT KIDNEY: Normal location of the left kidney, which is normal in size. The left kidney measures 10.8 x 5 x 5.1 cm. There is a normal cortex of the left kidney. The renal cortex measures 1.4 cm. There is a cyst measuring 1.3 x 1.1 x 0.9 cm There are no left renal calculi. There is no left hydronephrosis. Diffusely increased cortical echoes are seen consistent with nonspecific renal parenchymal disease DISTAL LEFT URETER: There is non-visualization of the distal left ureter. There is no demonstrated left ureterovesical junction calculus. There is a visualized left ureteral jet. BLADDER: The distended urinary bladder has a volume of 90.1 ml.. There is a normal wall thickness of the distended urinary bladder. There is no demonstrated mass within the urinary bladder. There are no demonstrated bladder calculi. US/Kidney and Bladder IMPRESSION: Findings consistent with nonspecific renal parenchymal disease. No evidence for hydronephrosis. Small left renal cyst Electronically Signed: Wiley Breen MD at 22:38 EST , Service support ,
--- NOTE | 2019-09-09 13:13 | PN_ITS ---
<Briseida Raymundo - Last Filed: 09/09/19 13:36> Patient Problems: Active and Suspected Problems Hyponatremia (Acute) Subjective: Patient seen and examined. No acute events overnight. Patient denies current complaints. Sodium unchanged from yesterday, 122. - Physical Exam Vitals/I&O's: Vital Signs Temp Pulse Resp BP Pulse Ox 98.4 F 76 16 129/76 H 98 09/09/19 08:15 09/09/19 09:33 09/09/19 08:15 09/09/19 08:15 09/09/19 08:15 Oxygen Delivery Method Room Air Weight: 200 lb 13.458 oz Body Mass Index (BMI) 33.2 Finger Stick Blood Glucose 143 Intake and Output for Last 24 Hours 09/07/19 09/08/19 09/09/19 23:59 23:59 23:59 Intake Total 1320 / 1370 1020 / 1320 1446.67 / 1446.67 Output Total 2800 / 3150 750 / 750 600 / 600 Balance -1480 / -1780 270 / 570 846.67 / 846.67 General: Alert, Oriented x3, Cooperative HEENT: Atraumatic, PERRLA, EOMI, Normocephalic Neck: Supple, No JVD, Negative Carotid Bruits Lungs: Clear to auscultation, Normal air movement Cardiovascular: Regular rate, Regular Rhythm, Normal S1, Normal S2, No murmurs Abdomen: Bowel Sounds Present, Soft, Non Tender, Non-Distended Extremities: No clubbing, No cyanosis, Capillary Refill Less than 3 Seconds, Edema - +2 lower extremity edema, left arm swelling Skin: No rashes, No breakdown Musculoskeletal: No Tenderness to Palpation of Joints or Extremities Neurological: Cranial nerves II-XII grossly intact, Neuro grossly intact Psych/Mental Status: Normal Affect, Appropriate Microbiology Past 72 Hours 09/06/19 21:30 Urine Catheter - Rivas Urine Culture - Final Culture exhibits no growth. 09/07/19 00:28 Mucosa - Nasopharyngeal Respiratory Panel (PCR) - Final 09/06/19 16:13 Mucosa - Nasopharyngeal Influenza Types A,B Direct FA (ANA) - Final Laboratory Results 09/08/19 00:30: Hep Bs Antigen Non-Reactive, Hep Bs Antibody Non-Reactive 09/08/19 21:40: Sodium 122 L 09/09/19 05:10: WBC 11.1 H, RBC 4.39, Hgb 10.9 L, Hct 34.3 L, MCV 78.1 L, MCH 24.8 L, MCHC 31.8 L, RDW Std Deviation 49.2 H, RDW Coeff of Mika 17.2 H, Plt Count 428, MPV 9.1, Immature Gran % (Auto) 0.600, Neut % (Auto) 75.2 H, Lymph % (Auto) 16.0 L, [place] % (Auto) 7.5, Eos % (Auto) 0.5, Baso % (Auto) 0.2, Absolute Neuts (auto) 8.4 H, Absolute Lymphs (auto) 1.78, Nucleated RBC % 0 09/09/19 05:10: Sodium 122 L, Potassium 4.4, Chloride 89 L, Carbon Dioxide 24.0, Anion Gap 9, BUN 51 H, Creatinine 2.35 H, Estim Creat Clear Calc 22.64, Est GFR (MDRD) Af Amer 27 L, Est GFR (MDRD) Non-Af 22 L, BUN/Creatinine Ratio 21.7 H, Glucose 104, Calcium 7.9 L 09/09/19 07:30: Urine Osmolality 284 09/09/19 07:30: Ur Random Sodium 9 Current Medications Acetaminophen (Tylenol) 650 mg PO Q6H PRN PRN PRN Reason: Pain Score 1-3/Temp > 100.7 F Last Admin: 09/08/19 17:11 Dose: 650 mg Documented by: Alprazolam (Xanax) 0.5 mg PO TID PRN PRN PRN Reason: ANXIETY Last Admin: 09/08/19 22:27 Dose: 0.5 mg Documented by: Enoxaparin Sodium (Lovenox) 30 mg SC DAILY [facility] Last Admin: 09/09/19 09:32 Dose: 30 mg Documented by: Furosemide (Lasix) 40 mg PO BID@1000,1800 ON LICENSE OF [facility] Hydralazine HCl (Apresoline Iv) 10 mg IV Q4H PRN PRN PRN Reason: SBP >160 Last Admin: 09/07/19 12:47 Dose: 10 mg Documented by: Sodium Chloride () 250 mls @ 15 mls/hr IV .[id number] PRN PRN Reason: Saline Flush Last Infusion: 09/08/19 23:10 Dose: 15 mls/hr Documented by: Sodium Chloride () 250 mls @ 15 mls/hr IV .[id number] PRN PRN Reason: Additional IVPB Infusion Potassium Chloride/Sodium Chloride () 1,000 mls @ 100 mls/hr IV .Q10H ON LICENSE OF [facility] Last Admin: 09/09/19 02:37 Dose: 100 mls/hr Documented by: Metoprolol Succinate (Toprol Xl (Beta Azra)) 50 mg PO BID ON LICENSE OF [facility] Last Admin: 09/09/19 09:33 Dose: 50 mg Documented by: Nitroglycerin (Nitrostat) 0.4 mg SUBLINGUAL Q5M PRN PRN Reason: CARDIAC/CHEST PAIN Nutritional Formula (Lactose Free) (Ensure Enlive) 120 ml PO 4X/DAY ON LICENSE OF [facility] Last Admin: 09/09/19 09:32 Dose: 120 ml Documented by: Ondansetron HCl (Zofran) 4 mg IV Q8H PRN PRN PRN Reason: NAUSEA/VOMITING Oxycodone HCl (Oxyir) 5 mg PO Q6H PRN PRN PRN Reason: Pain Score 6-10/10 Last Admin: 09/09/19 09:33 Dose: 5 mg Documented by: [facility] Last Admin: 09/09/19 09:33 Dose: 2.5 mg Documented by: Sodium Chloride () 10 - 40 ml IV UD PRN PRN Reason: SALINE FLUSH Last Admin: 09/09/19 05:16 Dose: 20 ml Documented by: Medical Necessity - Tobacco Use Smoking Status: Never smoker Tobacco Use: Non-smoker Assessment/Plan All Active Problems Hyponatremia (Acute) 1. Hyponatremia-unclear etiology. Fluid restriction, initiate Lasix. Patient appears hypervolemic. Trend BMP. Nephrology following. 2. Metabolic encephalopathy, suspect secondary 1-improved. 3. Leukocytosis-unclear etiology. Improved. Infectious work-up has been unremarkable. Further empiric antibiotics discontinued. 4. KHUSHBOO on Chronic kidney disease stage III-left forearm fistula in place due to prior renal failure. Nephrology following. Renal ultrasound ordered. Initiated on oral Lasix. 5. Elevated troponin-suspect secondary to acute renal failure. EKG without ST- T changes. Enzymes did not trend. Cardiology consulted. 6. Acute heart failure with preserved ejection fraction-chest x-ray admission with CHF. BNP 2402. Initiated oral Lasix 40 mg twice daily. Fluid restriction. Echocardiogram demonstrated an EF of 55 to 60%, mild to moderate mitral valve insufficiency, mild tricuspid insufficiency, pulmonary artery systolic pressure 54 mmHg. 7. Hypertension-stable, losartan on hold due to KHUSHBOO. 8. AA Amyloidosis 9. Rheumatoid arthritis-on etanercept, low dose prednisone. 10. Abnormal CT of chest-CT demonstrated small bilateral pleural effusions, larger on the right side which could be loculated. Mediastinal lymphadenopathy. Bilateral lower lobe infiltrate versus atelectasis. As noted above, infectious process ruled out. Pulmonary medicine following. Recommend outpatient follow- up at discharge for follow-up imaging. DVT prophylaxis-Lovenox subcu. This patient was seen by COURTNEY Ingram under the supervision of Dr. Lewis. <Goran Lewis E - Last Filed: 09/09/19 14:35> - Physical Exam Vitals/I&O's: Vital Signs Temp Pulse Resp BP Pulse Ox 97.4 F L 81 16 156/92 H 97 09/09/19 13:41 09/09/19 13:41 09/09/19 13:41 09/09/19 13:41 09/09/19 13:41 Oxygen Delivery Method Room Air Weight: 200 lb 13.458 oz Body Mass Index (BMI) 33.2 Finger Stick Blood Glucose 143 Intake and Output for Last 24 Hours 09/07/19 09/08/19 09/09/19 23:59 23:59 23:59 Intake Total 1320 / 1370 1020 / 1320 2900.92 / 2900.92 Output Total 2800 / 3150 750 / 750 600 / 600 Balance -1480 / -1780 270 / 570 2300.92 / 2300.92 Microbiology Past 72 Hours 09/06/19 21:30 Urine Catheter - Rivas Urine Culture - Final Culture exhibits no growth. 09/07/19 00:28 Mucosa - Nasopharyngeal Respiratory Panel (PCR) - Final 09/06/19 16:13 Mucosa - Nasopharyngeal Influenza Types A,B Direct FA (ANA) - Final Laboratory Results 09/06/19 16:00: Diff Path Review Reviewed 09/08/19 00:30: Hep Bs Antigen Non-Reactive, Hep Bs Antibody Non-Reactive 09/08/19 21:40: Sodium 122 L 09/09/19 05:10: WBC 11.1 H, RBC 4.39, Hgb 10.9 L, Hct 34.3 L, MCV 78.1 L, MCH 24.8 L, MCHC 31.8 L, RDW Std Deviation 49.2 H, RDW Coeff of Mika 17.2 H, Plt Count 428, MPV 9.1, Immature Gran % (Auto) 0.600, Neut % (Auto) 75.2 H, Lymph % (Auto) 16.0 L, [place] % (Auto) 7.5, Eos % (Auto) 0.5, Baso % (Auto) 0.2, Absolute Neuts (auto) 8.4 H, Absolute Lymphs (auto) 1.78, Nucleated RBC % 0 09/09/19 05:10: Sodium 122 L, Potassium 4.4, Chloride 89 L, Carbon Dioxide 24.0, Anion Gap 9, BUN 51 H, Creatinine 2.35 H, Estim Creat Clear Calc 22.64, Est GFR (MDRD) Af Amer 27 L, Est GFR (MDRD) Non-Af 22 L, BUN/Creatinine Ratio 21.7 H, Glucose 104, Calcium 7.9 L 09/09/19 07:30: Urine Osmolality 284 09/09/19 07:30: Ur Random Sodium 9 Current Medications Acetaminophen (Tylenol) 650 mg PO Q6H PRN PRN PRN Reason: Pain Score 1-3/Temp > 100.7 F Last Admin: 09/08/19 17:11 Dose: 650 mg Documented by: Alprazolam (Xanax) 0.5 mg PO TID PRN PRN PRN Reason: ANXIETY Last Admin: 09/08/19 22:27 Dose: 0.5 mg Documented by: Enoxaparin Sodium (Lovenox) 30 mg SC DAILY [facility] Last Admin: 09/09/19 09:32 Dose: 30 mg Documented by: Furosemide (Lasix) 40 mg PO BID@1000,1800 [facility] Hydralazine HCl (Apresoline Iv) 10 mg IV Q4H PRN PRN PRN Reason: SBP >160 Last Admin: 09/07/19 12:47 Dose: 10 mg Documented by: Sodium Chloride () 250 mls @ 15 mls/hr IV .[id number] PRN PRN Reason: Saline Flush Last Infusion: 09/09/19 13:27 Dose: 0 mls/hr Documented by: Sodium Chloride () 250 mls @ 15 mls/hr IV .[id number] PRN PRN Reason: Additional IVPB Infusion Metoprolol Succinate (Toprol Xl (Beta Azra)) 50 mg PO BID ON LICENSE OF [facility] Last Admin: 09/09/19 09:33 Dose: 50 mg Documented by: Nitroglycerin (Nitrostat) 0.4 mg SUBLINGUAL Q5M PRN PRN Reason: CARDIAC/CHEST PAIN Nutritional Formula (Lactose Free) (Ensure Enlive) 120 ml PO 4X/DAY ON LICENSE OF [facility] Last Admin: 09/09/19 14:23 Dose: Not Given Documented by: Ondansetron HCl (Zofran) 4 mg IV Q8H PRN PRN PRN Reason: NAUSEA/VOMITING Oxycodone HCl (Oxyir) 5 mg PO Q6H PRN PRN PRN Reason: Pain Score 6-10/10 Last Admin: 09/09/19 09:33 Dose: 5 mg Documented by: [facility] Last Admin: 09/09/19 09:33 Dose: 2.5 mg Documented by: Sodium Chloride () 10 - 40 ml IV UD PRN PRN Reason: SALINE FLUSH Last Admin: 09/09/19 05:16 Dose: 20 ml Documented by: Assessment/Plan Hospitalist note: I am seeing this patient in conjunction with Briseida Raymundo. I independently seen and examined the patient. Progress note above, laboratory data and imaging studies reviewed and I concur with above treatment plan. Today, patient is alert and noted x3. He denied any significant complaints. Her vital signs are stable. - Physical Exam General: Alert, Oriented x3, Cooperative, No apparent distress. HEENT: Atraumatic, PERRLA, EOMI. Neck: Supple, No JVD, Negative Carotid Bruits, Trachea Midline, Thyroid Normal. Lungs: Decreased breath sounds bilateral more at the bases, otherwise clear, No rhonchi, No wheeze, No rales. Cardiovascular: Regular rate, Regular Rhythm, Normal S1, Normal S2, PMI Normal. Abdomen: Bowel Sounds Present, Soft, Non Tender, Non-Distended, No Hepato- splenomegaly. Extremities: No clubbing, No cyanosis, No edema Skin: No rashes, No breakdown Neurological: Cranial nerves are intact, neuro grossly intact Vital Signs are stable. Assessment and plan: #1 hyponatremia: Could be due to volume overload. Admission sodium was 116, it improved to 122 today. Started on Lasix and fluid restriction. Nephrology on the case. #2 acute metabolic encephalopathy: Secondary to #1. Resolved. Today, patient is alert and noted x3. #3 leukocytosis: Unclear etiology. CT scan chest revealed bilateral lower lobe atelectasis versus infiltrate. Patient received IV antibiotics for 4 days. She has been afebrile, WBC is trending down. Her cultures are negative. Antibiotics discontinued. Pneumonia is unlikely this time. #4 acute kidney injury top of stage III chronic kidney disease: Unknown baseline kidney function. In the past, patient had left forearm fistula. Nephrology on the case. Ultrasound ordered. #5 borderline elevated troponin: EKG without acute changes. Troponin is borderline elevated and flat. Patient denied any chest pain. 2D echocardiogram revealed ejection fraction of 55 to 60%, moderately enlarged left atrium, pulmonary artery pressure of 54. Cardiology consulted. #6 acute diastolic CHF: On oral Lasix, on metoprolol. 2D echocardiogram reviewed as above. #7 other chronic medical problems: Stable, continue current medications as above. This note was generated with Pure[employer] dictation software. It may contain incorrect words, spelling, and punctuation that were not noted in checking the note before signing. Code Visit Inpatient E&M: 63973 Subs Hosp L2
[2019-09-09] MEDS: Furosemide 40 MG Tablet PO ×2 (13:46→21:44)
[2019-09-09 13:57] LABS: Pathologist Review Reviewed
--- NOTE | 2019-09-09 16:18 | CHAPLAIN ---
Type of Pastoral Visit _x__ Initial Visit ___ Follow-up Visit ___ On-call Visit ___ General Patient Visit ___ Spiritual Assessment ___ Family Conference ___ Bereavement ___ Rapid Response ___ Code Blue ___ Other (describe below) Pastoral Care Referral From _x__ Patient ___ Family ___ Nurse ___ Physician ___ Enrobing Machine Feeder ___ Logistics Operations Manager ___ Other (describe below) Sacrament/Intervention _x__ Active listening ___ Anointing ___ Roman Catholic ___ Bereavement ___ Communion ___ Rose exploration ___ _x__ Life review _x__ Prayer ___ Reconciliation ___ Sacrament of Sick _x__ Supportive presence ___ Wedding ___ Other (describe below) Pastoral Comments
[2019-09-09] MEDS: ALPRAZolam 0.5 MG Tablet PO (21:44)
[2019-09-10] VITALS (8 sets, daily range): BP systolic 145–199; BP diastolic 67–111; PULSE 81–88; RESP 16–18; TEMP 36.3–36.6; O2SAT 97–99
[2019-09-10] MEDS: hydrALAZINE 20 MG/ML Vial 10 MG IV (02:14)
[2019-09-10] MEDS: 0.9% Saline Lock 10 ML Syringe IV ×3 (02:15→13:44)
[2019-09-10] MEDS: ALPRAZolam 0.5 MG Tablet PO (04:25)
[2019-09-10 04:27] LABS: Hematocrit 33.8 % (37-47); Hemoglobin 11.1 g/dL (12.0-15.0); Mean Corp Hgb Conc 32.8 g/dL (32-36); Mean Corpuscular Hgb 25.8 pg (27.0-32.0); Mean Corpuscular Volume 78.4 fL (81-99); Mean Platelet Vol. 8.8 fl (6.2-12.0); Platelet Count 439 K/mm3 (150-450); RBC Distribution Width CV 16.8 % (11.6-14.6); RBC Distribution Width SD 48.2 fl (35.1-43.9); Red Blood Count 4.31 M/mm3 (4.2-5.4); White Blood Count 11.1 K/mm3 (4.4-11.0)
[2019-09-10 04:39] LABS: Anion Gap 10 (5-15); BUN 59 mg/dL (7-18); BUN/Creat Ratio 24.7 RATIO (10-20); Calcium,Total 8.5 mg/dL (8.5-10.1); Chloride 90 mmol/L (98-107); Creatinine, Serum 2.39 mg/dL (0.55-1.02); EST Glomerular Filtration Rate 22 mL/min (>60); Est Glom Filt Rate - Afr Amer 26 mL/min (>60); Estimated Creatinine Clearance 22.26 ml/min; Glucose 101 mg/dL (74-106); Sodium Level 123 mmol/L (136-145)
[2019-09-10] MEDS: oxyCODONE 5 MG Tablet PO (08:31)
[2019-09-10] MEDS: predniSONE 5 MG Tablet 2.5 MG PO (08:32)
[2019-09-10] MEDS: Enoxaparin 30 MG/0.3 ML Syringe SC (09:46)
[2019-09-10] MEDS: Furosemide 40 MG Tablet PO (09:46)
[2019-09-10] MEDS: Metoprolol(XL)Succ 50 MG Tablet PO (09:46)
[2019-09-10] MEDS: Polyethylene Glycol 3350 17 GM PACKET PO (09:48)
[2019-09-10 11:25] LABS: Uric Acid 8.1 mg/dL (2.6-6.0)
--- NOTE | 2019-09-10 11:50 | PCM.DC ---
- Discharge Diagnoses Current Active Problems: Current Active and Chronic Problems Hyponatremia (Acute) You will use the following diet at home:: Cardiac, Renal (restricted protein/sodium), Other - 1200 cc fluid restriction Discharge Activity: Return to Normal Activity Call your doctor if you observe: Shortness of breath, Dizziness, Fainting spells, Swelling in the ankles, Chest pain Allergies/Adverse Reactions: Allergies No Known Allergies Allergy (Verified 09/06/19 14:51) Medications to take at Discharge ALPRAZolam [Xanax] 1 mg PO TID PRN PRN 01/16/18 Amitriptyline HCl [Elavil] 10 mg PO QHS 01/16/18 Baclofen [Lioresal] 10 mg PO 4X/DAY 01/16/18 Etanercept [Enbrel] 50 mg SQ Q7D 01/16/18 Ferrous Gluconate [Iron] 1 tab PO TID 01/16/18 Fluoxetine [Prozac] 20 mg PO DAILY 01/16/18 Prednisone 2.5 mg PO BID 01/16/18 traMADol [Ultram] 50 mg PO Q6H PRN PRN 01/16/18 Oxycodone HCl 5 mg PO Q6H PRN PRN 09/06/19 Furosemide [Lasix] 40 mg PO BID@1000,1800 #60 tab 09/10/19 Metoprolol(XL)Succ [Toprol Xl (Beta Azra)] 50 mg PO BID #60 tab 09/10/19 The following prescriptions were given: Furosemide [Lasix] 40 mg PO BID@1000,1800 #60 tab Transmission Status: Pending to [facility] Metoprolol(XL)Succ [Toprol Xl (Beta Azra)] 50 mg PO BID #60 tab Transmission Status: Pending to [facility] Primary Care Physician: Jabier Arboleda DO [Primary Care Provider] - Please follow up with your Primary Care Physician in: 3-5 days Test Results: Test results from this visit will be discussed in further detail at your follow-up appointment, if applicable. Please Follow Up With: Primary nephrology When: 3-5 days Proposed Discharge Date: 09/10/19
--- NOTE | 2019-09-10 13:09 | PN_ITS ---
Patient Problems: Active and Suspected Problems Hyponatremia (Acute) Subjective: NO SOB/CP - Physical Exam Vitals/I&O's: Vital Signs Temp Pulse Resp BP Pulse Ox 97.4 F L 81 16 145/73 H 97 09/10/19 08:28 09/10/19 09:46 09/10/19 08:28 09/10/19 08:28 09/10/19 08:28 Oxygen Delivery Method Room Air Weight: 91.1 kg Body Mass Index (BMI) 33.2 Finger Stick Blood Glucose 143 Intake and Output for Last 24 Hours 09/08/19 09/09/19 09/10/19 23:59 23:59 23:59 Intake Total 1020 / 1320 3560.92 / 3560.92 680 / 680 Output Total 750 / 750 1100 / 1100 1350 / 1350 Balance 270 / 570 2460.92 / 2460.92 -670 / -670 General: Alert, Oriented x3, Cooperative HEENT: Atraumatic, PERRLA, EOMI, Normocephalic Neck: Supple, No JVD, Negative Carotid Bruits Lungs: Clear to auscultation, Normal air movement Cardiovascular: Regular rate, No murmurs Abdomen: Bowel Sounds Present, Soft, Non Tender Extremities: Capillary Refill Less than 3 Seconds, Edema Skin: No rashes, No breakdown Musculoskeletal: No Tenderness to Palpation of Joints or Extremities Neurological: Cranial nerves II-XII grossly intact Psych/Mental Status: Normal Affect, Appropriate Microbiology Past 72 Hours 09/06/19 21:30 Urine Catheter - Rivas Urine Culture - Final Culture exhibits no growth. 09/07/19 00:28 Mucosa - Nasopharyngeal Respiratory Panel (PCR) - Final Laboratory Results 09/06/19 16:00: Diff Path Review Reviewed 09/10/19 04:20: WBC 11.1 H, RBC 4.31, Hgb 11.1 L, Hct 33.8 L, MCV 78.4 L, MCH 25.8 L, MCHC 32.8, RDW Std Deviation 48.2 H, RDW Coeff of Mika 16.8 H, Plt Count 439, MPV 8.8 09/10/19 04:20: Sodium 123 L, Potassium 4.0, Chloride 90 L, Carbon Dioxide 23.0, Anion Gap 10, BUN 59 H, Creatinine 2.39 H, Estim Creat Clear Calc 22.26, Est GFR (MDRD) Af Amer 26 L, Est GFR (MDRD) Non-Af 22 L, BUN/Creatinine Ratio 24.7 H, Glucose 101, Calcium 8.5 09/10/19 04:20: Uric Acid 8.1 H Current Medications Acetaminophen (Tylenol) 650 mg PO Q6H PRN PRN PRN Reason: Pain Score 1-3/Temp > 100.7 F Last Admin: 09/08/19 17:11 Dose: 650 mg Documented by: Alprazolam (Xanax) 0.5 mg PO TID PRN PRN PRN Reason: ANXIETY Last Admin: 09/10/19 04:25 Dose: 0.5 mg Documented by: Docusate Sodium (Colace) 200 mg PO BID PRN PRN PRN Reason: Constipation Enoxaparin Sodium (Lovenox) 30 mg SC DAILY [facility] Last Admin: 09/10/19 09:46 Dose: 30 mg Documented by: Furosemide (Lasix) 40 mg PO BID@1000,1800 [facility] Last Admin: 09/10/19 09:46 Dose: 40 mg Documented by: Heparin Sodium (Beef Lung) () 50 units IV UD PRN PRN Reason: PICC Line Heparin Flush Hydralazine HCl (Apresoline Iv) 10 mg IV Q4H PRN PRN PRN Reason: SBP >160 Last Admin: 09/10/19 02:14 Dose: 10 mg Documented by: Sodium Chloride () 250 mls @ 15 mls/hr IV .[id number] PRN PRN Reason: Saline Flush Last Infusion: 09/09/19 14:59 Dose: Infused Documented by: Sodium Chloride () 250 mls @ 15 mls/hr IV .[id number] PRN PRN Reason: Additional IVPB Infusion Metoprolol Succinate (Toprol Xl (Beta Azra)) 50 mg PO BID [facility] Last Admin: 09/10/19 09:46 Dose: 50 mg Documented by: Nitroglycerin (Nitrostat) 0.4 mg SUBLINGUAL Q5M PRN PRN Reason: CARDIAC/CHEST PAIN Nutritional Formula (Lactose Free) (Ensure Enlive) 60 ml PO 4X/DAY [facility] Last Admin: 09/10/19 08:34 Dose: Not Given Documented by: Ondansetron HCl (Zofran) 4 mg IV Q8H PRN PRN PRN Reason: NAUSEA/VOMITING Oxycodone HCl (Oxyir) 5 mg PO Q6H PRN PRN PRN Reason: Pain Score 6-10/10 Last Admin: 09/10/19 08:31 Dose: 5 mg Documented by: Polyethylene Glycol (Miralax) 17 gm PO DAILY [facility] Last Admin: 09/10/19 09:48 Dose: 17 gm Documented by: [facility] () [facility] Last Admin: 09/10/19 08:32 Dose: 2.5 mg Documented by: Sodium Chloride () 10 - 40 ml IV UD PRN PRN Reason: SALINE FLUSH Last Admin: 09/10/19 04:25 Dose: 10 ml Documented by: Medical Necessity - Tobacco Use Smoking Status: Never smoker Tobacco Use: Non-smoker Assessment/Plan All Active Problems Hyponatremia (Acute) Hyponatremia KHUSHBOO prerenal Renal cyst CKD only previous value of serum creatinine is 1.9 from last year no other values available LE edema HF no need for HD scr 2.3 SNa 123 BETTER continue fluid restriciton and lasix reviewed renal US reinforced fluid restriction Avoid nephrotoxins and overdiuresis BMP on Monday and Monday next week 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
--- NOTE | 2019-09-10 13:28 | PCM.DC.SUM ---
<Briseida Raymundo - Last Filed: 09/10/19 13:43> Discharge Date and Diagnosis Date of Admission: 09/06/19 Date of Discharge: 09/10/19 - Primary Discharge Diagnosis Active and Suspected Problems 1. Hyponatremia, hypervolemic 2. Metabolic encephalopathy, suspect secondary 1-improved. 3. Leukocytosis-unclear etiology. Improved. Infectious work-up has been unremarkable. 4. KHUSHBOO on Chronic kidney disease stage III 5. Elevated troponin-suspect secondary to acute renal failure. 6. Acute heart failure with preserved ejection fraction 7. Hypertension 8. AA Amyloidosis 9. Rheumatoid arthritis 10. Abnormal CT of chest Hospital Course and Treatment Imaging Results: Diagnostic Data Brain CT 09/06/19 15:06 IMPRESSION: There is minimal pneumocephaly of the parasellar region bilaterally in the medial right temporal fossa. There is minimal subcutaneous air of the left and right cheek regions, and medial right orbit, and bilateral frontal scalp. Electronically Signed: Judd Cooper MD at 17:06 EST , Service support , ADDENDUM: 09/06/19 1724 IMPRESSION: There is minimal pneumocephaly of the parasellar region bilaterally in the medial right temporal fossa. There is minimal subcutaneous air of the left and right cheek regions, and medial right orbit, and bilateral frontal scalp. N.B. : The above information has been verbally conveyed by Judd Cooper MD to Jurgen Stephenson MD, , on 09/06/2019 17:17:29 (ET). Electronically Signed: Judd Cooper MD at 17:06 EST , Service support , Chest X-Ray 09/06/19 15:10 IMPRESSION: Mild cardiomegaly with the findings in keeping with CHF and bibasilar atelectasis and small effusions worse on the right side. Electronically Signed: Pop Pimentel, at 15:24 EST , Service support , Chest CT 09/07/19 06:53 IMPRESSION: 1. Cardiomegaly and pulmonary venous congestion. 2. Bilateral lower lobes infiltrate/atelectasis. 3. Small bilateral pleural effusions larger on the right side which could be loculated on the right side. 4. Mediastinal lymphadenopathy. 5. Follow-up examination following treatment with contrast might be of further value. 6. Liver lesions likely representing cysts. Electronically Signed: Bartolome Gaona MD at 8:50 EST Tel , Service support , Renal Ultrasound 09/09/19 13:04 IMPRESSION: Findings consistent with nonspecific renal parenchymal disease. No evidence for hydronephrosis. Small left renal cyst Electronically Signed: Wiley Breen MD at 22:38 EST , Service support , Dr. Linton- Pulmonary Medicine Dr. Franks- Nephrology Dr. Reed- Cardiology Operations: None Procedures: 2-D Echocardiogram Summary of Care Provided: The patient is a 64 year old F admitted 09/06/2019 due to altered mental status. 1. Hyponatremia-secondary to hypervolemia. Continue 1200 cc fluid restriction, and Lasix 40 mg twice daily. Patient will need repeat BMP in 3 to 5 days by primary machine joiner cementer. Follow-up with PCP in 1 week. 2. Metabolic encephalopathy, suspect secondary 1-improved. 3. Leukocytosis-unclear etiology. Improved. Infectious work-up has been unremarkable. Further empiric antibiotics discontinued. 4. KHUSHBOO on Chronic kidney disease stage III-left forearm fistula in place due to prior renal failure. Nephrology consulted during admission. Renal ultrasound demonstrated nonspecific renal parenchymal disease, no hydronephrosis. Initiated on oral Lasix per nephrology recommendations. Patient follows with nephrology in [place]. Follow-up in 3 to 5 days for repeat BMP with primary machine joiner cementer. 5. Elevated troponin-suspect secondary to acute renal failure. EKG without ST-T changes. Enzymes did not trend. Cardiology during admission. 6. Acute heart failure with preserved ejection fraction-chest x-ray admission with CHF. BNP 2402. Initiated oral Lasix 40 mg twice daily. Fluid restriction. Echocardiogram demonstrated an EF of 55 to 60%, mild to moderate mitral valve insufficiency, mild tricuspid insufficiency, pulmonary artery systolic pressure 54 mmHg. 7. Hypertension-stable, losartan discontinued due to KHUSHBOO. Initiated on metoprolol 50 mg twice daily. Also on Lasix 40 mg twice daily. 8. AA Amyloidosis 9. Rheumatoid arthritis-on etanercept, low dose prednisone. 10. Abnormal CT of chest-CT demonstrated small bilateral pleural effusions, larger on the right side which could be loculated. Mediastinal lymphadenopathy. Bilateral lower lobe infiltrate versus atelectasis. As noted above, infectious process ruled out. Pulmonary medicine consulted during admission. Recommend outpatient follow-up at discharge for follow-up imaging. Follow-up with Dr. Linton/Cassia Cazares in 2 to 4 weeks. General: Alert, Oriented x3, Cooperative HEENT: Atraumatic, PERRLA, EOMI, Normocephalic Neck: Supple, No JVD, Negative Carotid Bruits Lungs: Clear to auscultation, Normal air movement Cardiovascular: Regular rate, Regular Rhythm, Normal S1, Normal S2, No murmurs Abdomen: Bowel Sounds Present, Soft, Non Tender, Non-Distended Extremities: No clubbing, No cyanosis, Capillary Refill Less than 3 Seconds, lower extremity edema-improved. Skin: No rashes, No breakdown Musculoskeletal: No Tenderness to Palpation of Joints or Extremities Neurological: Cranial nerves II-XII grossly intact, Neuro grossly intact Psych/Mental Status: Normal Affect, Appropriate Patient seen and examined prior to discharge. Physical assessment as noted above. Patient is stable for discharge with follow up recommendations as noted above. This patient was seen by COURTNEY Ingram under the supervision of Dr. Lewis. - Physical Exam Vitals/I&O's: Vital Signs Temp Pulse Resp BP Pulse Ox 97.4 F L 81 16 145/73 H 97 09/10/19 08:28 09/10/19 09:46 09/10/19 08:28 09/10/19 08:28 09/10/19 08:28 Oxygen Delivery Method Room Air Weight: 200 lb 13.458 oz Body Mass Index (BMI) 33.2 Finger Stick Blood Glucose 143 Intake and Output for Last 24 Hours 09/08/19 09/09/19 09/10/19 23:59 23:59 23:59 Intake Total 1020 / 1320 3560.92 / 3560.92 680 / 680 Output Total 750 / 750 1100 / 1100 1350 / 1350 Balance 270 / 570 2460.92 / 2460.92 -670 / -670 Microbiology Past 72 Hours 09/06/19 21:30 Urine Catheter - Rivas Urine Culture - Final Culture exhibits no growth. 09/07/19 00:28 Mucosa - Nasopharyngeal Respiratory Panel (PCR) - Final Laboratory Results 09/06/19 16:00: Diff Path Review Reviewed 09/10/19 04:20: WBC 11.1 H, RBC 4.31, Hgb 11.1 L, Hct 33.8 L, MCV 78.4 L, MCH 25.8 L, MCHC 32.8, RDW Std Deviation 48.2 H, RDW Coeff of Mika 16.8 H, Plt Count 439, MPV 8.8 09/10/19 04:20: Sodium 123 L, Potassium 4.0, Chloride 90 L, Carbon Dioxide 23.0, Anion Gap 10, BUN 59 H, Creatinine 2.39 H, Estim Creat Clear Calc 22.26, Est GFR (MDRD) Af Amer 26 L, Est GFR (MDRD) Non-Af 22 L, BUN/Creatinine Ratio 24.7 H, Glucose 101, Calcium 8.5 09/10/19 04:20: Uric Acid 8.1 H Current Medications Acetaminophen (Tylenol) 650 mg PO Q6H PRN PRN PRN Reason: Pain Score 1-3/Temp > 100.7 F Last Admin: 09/08/19 17:11 Dose: 650 mg Documented by: Alprazolam (Xanax) 0.5 mg PO TID PRN PRN PRN Reason: ANXIETY Last Admin: 09/10/19 04:25 Dose: 0.5 mg Documented by: Docusate Sodium (Colace) 200 mg PO BID PRN PRN PRN Reason: Constipation Enoxaparin Sodium (Lovenox) 30 mg SC DAILY [facility] Last Admin: 09/10/19 09:46 Dose: 30 mg Documented by: Furosemide (Lasix) 40 mg PO BID@1000,1800 [facility] Last Admin: 09/10/19 09:46 Dose: 40 mg Documented by: Heparin Sodium (Beef Lung) () 50 units IV UD PRN PRN Reason: PICC Line Heparin Flush Hydralazine HCl (Apresoline Iv) 10 mg IV Q4H PRN PRN PRN Reason: SBP >160 Last Admin: 09/10/19 02:14 Dose: 10 mg Documented by: Sodium Chloride () 250 mls @ 15 mls/hr IV .[id number] PRN PRN Reason: Saline Flush Last Infusion: 09/09/19 14:59 Dose: Infused Documented by: Sodium Chloride () 250 mls @ 15 mls/hr IV .[id number] PRN PRN Reason: Additional IVPB Infusion Metoprolol Succinate (Toprol Xl (Beta Azra)) 50 mg PO BID [facility] Last Admin: 09/10/19 09:46 Dose: 50 mg Documented by: Nitroglycerin (Nitrostat) 0.4 mg SUBLINGUAL Q5M PRN PRN Reason: CARDIAC/CHEST PAIN Nutritional Formula (Lactose Free) (Ensure Enlive) 60 ml PO 4X/DAY [facility] Last Admin: 09/10/19 08:34 Dose: Not Given Documented by: Ondansetron HCl (Zofran) 4 mg IV Q8H PRN PRN PRN Reason: NAUSEA/VOMITING Oxycodone HCl (Oxyir) 5 mg PO Q6H PRN PRN PRN Reason: Pain Score 6-10/10 Last Admin: 09/10/19 08:31 Dose: 5 mg Documented by: Polyethylene Glycol (Miralax) 17 gm PO DAILY [facility] Last Admin: 09/10/19 09:48 Dose: 17 gm Documented by: [facility] () [facility] Last Admin: 09/10/19 08:32 Dose: 2.5 mg Documented by: Sodium Chloride () 10 - 40 ml IV UD PRN PRN Reason: SALINE FLUSH Last Admin: 09/10/19 04:25 Dose: 10 ml Documented by: Discharge Diet: Low fat/ Low Cholesterol, Renal Diet, - - 1200cc FR Discharge Activity: Return to Normal Activity Call your doctor if you observe: Shortness of breath, Dizziness, Fainting spells, Swelling in the ankles, Chest pain Home Medications: Medications to take at Discharge ALPRAZolam [Xanax] 1 mg PO TID PRN PRN 01/16/18 Amitriptyline HCl [Elavil] 10 mg PO QHS 01/16/18 Baclofen [Lioresal] 10 mg PO 4X/DAY 01/16/18 Etanercept [Enbrel] 50 mg SQ Q7D 01/16/18 Ferrous Gluconate [Iron] 1 tab PO TID 01/16/18 Fluoxetine [Prozac] 20 mg PO DAILY 01/16/18 Prednisone 2.5 mg PO BID 01/16/18 traMADol [Ultram] 50 mg PO Q6H PRN PRN 01/16/18 Oxycodone HCl 5 mg PO Q6H PRN PRN 09/06/19 Furosemide [Lasix] 40 mg PO BID@1000,1800 #60 tab 09/10/19 Metoprolol(XL)Succ [Toprol Xl (Beta Azra)] 50 mg PO BID #60 tab 09/10/19 Following Prescrptions Were Given to Patient: Furosemide [Lasix] 40 mg PO BID@1000,1800 #60 tab Transmission Status: Received by [facility] Metoprolol(XL)Succ [Toprol Xl (Beta Azra)] 50 mg PO BID #60 tab Transmission Status: Received by [facility] Primary Care Physician: Jabier Arboleda DO [Primary Care Provider] - Please follow up with your Primary Care Physician in: 3-5 days Please Follow Up With: Primary nephrology When: 3-5 days Please Follow Up With: Cassia Cazares NP-C When: 2-4 weeks Disposition: Home Minutes spent on discharge:: 35 Patient Condition:: Stable Medical Necessity - Tobacco Use Smoking Status: Never smoker Tobacco Use: Non-smoker Meaningful Use Info Meaningful Use Diagnoses (Choose all that apply): CHF - CHF SUSANA/ARB ordered at discharge?: No Reason SUSANA/ARB not ordered?: Worsening renal function Documented LVEF (%): 55 <Goran Lewis E - Last Filed: 09/10/19 13:59> Hospital Course and Treatment Summary of Care Provided: Hospitalist note: Discharge summary above reviewed and I concur with above discharge and treatment plan. Patient was admitted because of weakness and change in mental status and she was found to have hyponatremia with serum sodium of 116 mmol/L on admission. This hyponatremia seemed to be due to hypervolemia in addition to renal loss of sodium. Patient does have a history of stage III chronic kidney disease on top of acute kidney injury during this hospital stay. On admission, patient was confused which was attributed to acute metabolic encephalopathy secondary to severe hyponatremia. Patient received IV fluids with normal saline and her mentation improved. Nephrology consulted and recommended to start patient on Lasix and fluid restriction given that this hyponatremia is likely due to hypovolemia and renal loss of sodium. Patient was found to have acute diastolic CHF with preserved ejection fraction. She was treated with diuretics and metoprolol. Respiratory panel for viruses were negative. Nasal swab for influenza a and B was negative. Urine culture showed no growth. Blood culture showed no growth up to date on discharge. With treatment, his sodium improved and upon discharge, sodium was 123 mmol/L. Renal ultrasound done and showed nonspecific renal parenchymal disease without evidence of hydronephrosis. Patient discharged home in a stable medical condition, discharged on Lasix 40 mg p.o. twice daily, fluid restriction, continued on her previous home medications without any changes, nephrology recommended BMP this coming Monday and Monday next week and to follow-up with her machine joiner cementer in [facility], recommended follow-up with PCP in 3 to 5 days. - Physical Exam General: Alert, Oriented x3, Cooperative, No apparent distress. HEENT: Atraumatic, PERRLA, EOMI. Neck: Supple, No JVD, Negative Carotid Bruits, Trachea Midline, Thyroid Normal. Lungs: Decreased breath sounds bilateral more at the bases, otherwise clear, No rhonchi, No wheeze, No rales. Cardiovascular: Regular rate, Regular Rhythm, Normal S1, Normal S2, PMI Normal. Abdomen: Bowel Sounds Present, Soft, Non Tender, Non-Distended, No Hepato-splenomegaly. Extremities: No clubbing, No cyanosis, No edema Skin: No rashes, No breakdown Neurological: Cranial nerves are intact, neuro grossly intact Vital Signs are stable. This note was generated with [employer] dictation software. It may contain incorrect words, spelling, and punctuation that were not noted in checking the note before signing. - Physical Exam Vitals/I&O's: Vital Signs Temp Pulse Resp BP Pulse Ox 97.4 F L 81 16 145/73 H 97 09/10/19 08:28 09/10/19 09:46 09/10/19 08:28 09/10/19 08:28 09/10/19 08:28 Oxygen Delivery Method Room Air Weight: 200 lb 13.458 oz Body Mass Index (BMI) 33.2 Finger Stick Blood Glucose 143 Intake and Output for Last 24 Hours 09/08/19 09/09/19 09/10/19 23:59 23:59 23:59 Intake Total 1020 / 1320 3560.92 / 3560.92 680 / 680 Output Total 750 / 750 1100 / 1100 1350 / 1350 Balance 270 / 570 2460.92 / 2460.92 -670 / -670 Microbiology Past 72 Hours 09/06/19 21:30 Urine Catheter - Rivas Urine Culture - Final Culture exhibits no growth. 09/07/19 00:28 Mucosa - Nasopharyngeal Respiratory Panel (PCR) - Final Laboratory Results 09/06/19 16:00: Diff Path Review Reviewed 09/10/19 04:20: WBC 11.1 H, RBC 4.31, Hgb 11.1 L, Hct 33.8 L, MCV 78.4 L, MCH 25.8 L, MCHC 32.8, RDW Std Deviation 48.2 H, RDW Coeff of Mika 16.8 H, Plt Count 439, MPV 8.8 09/10/19 04:20: Sodium 123 L, Potassium 4.0, Chloride 90 L, Carbon Dioxide 23.0, Anion Gap 10, BUN 59 H, Creatinine 2.39 H, Estim Creat Clear Calc 22.26, Est GFR (MDRD) Af Amer 26 L, Est GFR (MDRD) Non-Af 22 L, BUN/Creatinine Ratio 24.7 H, Glucose 101, Calcium 8.5 09/10/19 04:20: Uric Acid 8.1 H Current Medications Acetaminophen (Tylenol) 650 mg PO Q6H PRN PRN PRN Reason: Pain Score 1-3/Temp > 100.7 F Last Admin: 09/08/19 17:11 Dose: 650 mg Documented by: Alprazolam (Xanax) 0.5 mg PO TID PRN PRN PRN Reason: ANXIETY Last Admin: 09/10/19 04:25 Dose: 0.5 mg Documented by: Docusate Sodium (Colace) 200 mg PO BID PRN PRN PRN Reason: Constipation Enoxaparin Sodium (Lovenox) 30 mg SC DAILY [facility] Last Admin: 09/10/19 09:46 Dose: 30 mg Documented by: Furosemide (Lasix) 40 mg PO BID@1000,1800 [facility] Last Admin: 09/10/19 09:46 Dose: 40 mg Documented by: Heparin Sodium (Beef Lung) () 50 units IV UD PRN PRN Reason: PICC Line Heparin Flush Last Admin: 09/10/19 13:44 Dose: 50 units Documented by: Hydralazine HCl (Apresoline Iv) 10 mg IV Q4H PRN PRN PRN Reason: SBP >160 Last Admin: 09/10/19 02:14 Dose: 10 mg Documented by: Sodium Chloride () 250 mls @ 15 mls/hr IV .[id number] PRN PRN Reason: Saline Flush Last Infusion: 09/09/19 14:59 Dose: Infused Documented by: Sodium Chloride () 250 mls @ 15 mls/hr IV .[id number] PRN PRN Reason: Additional IVPB Infusion Metoprolol Succinate (Toprol Xl (Beta Azra)) 50 mg PO BID [facility] Last Admin: 09/10/19 09:46 Dose: 50 mg Documented by: Nitroglycerin (Nitrostat) 0.4 mg SUBLINGUAL Q5M PRN PRN Reason: CARDIAC/CHEST PAIN Nutritional Formula (Lactose Free) (Ensure Enlive) 60 ml PO 4X/DAY [facility] Last Admin: 09/10/19 08:34 Dose: Not Given Documented by: Ondansetron HCl (Zofran) 4 mg IV Q8H PRN PRN PRN Reason: NAUSEA/VOMITING Oxycodone HCl (Oxyir) 5 mg PO Q6H PRN PRN PRN Reason: Pain Score 6-10/10 Last Admin: 09/10/19 08:31 Dose: 5 mg Documented by: Polyethylene Glycol (Miralax) 17 gm PO DAILY [facility] Last Admin: 09/10/19 09:48 Dose: 17 gm Documented by: [facility] () [facility] Last Admin: 09/10/19 08:32 Dose: 2.5 mg Documented by: Sodium Chloride () 10 - 40 ml IV UD PRN PRN Reason: SALINE FLUSH Last Admin: 09/10/19 13:44 Dose: 10 ml Documented by: Disposition: Home Minutes spent on discharge:: 33 Patient Condition:: Stable Meaningful Use Info Meaningful Use Diagnoses (Choose all that apply): CHF - CHF SUSANA/ARB ordered at discharge?: No Reason SUSANA/ARB not ordered?: Worsening renal function Documented LVEF (%): 55 Code Visit Inpatient E&M: 26071 Disch Hosp
[2019-09-10 16:25] LABS: Hepatitis B Core Ab Total Negative (Negative)
== END 2019-09-10 15:09 | disposition home or self-care (01) | DRG 640 ==
LOC: ED 16:19 → ICU 17:15 → PCU 09-09 07:22 → ICU 09-10 08:08 → PCU 09-10 08:08
PROVIDERS: Family Medicine; Internal Medicine Critical Care Medicine; Internal Medicine Nephrology; Nurse Practitioner Family; Specialist; Admitting Provider Student in an Organized Health Care Education/Training Program; Emergency Provider Emergency Medicine; PCP Family Medicine; Referring Provider Student in an Organized Health Care Education/Training Program; Visit Provider Hospitalist
DX: E87.1 Hypo-osmolality and hyponatremia (principal); I50.31 Acute diastolic (congestive) heart failure; G93.41 Metabolic encephalopathy; I13.0 Hypertensive heart and chronic kidney disease with heart failure and stage 1 through stage 4 chronic kidney disease, or unspecified chronic kidney disease; N17.9 Acute kidney failure, unspecified; E85.9 Amyloidosis, unspecified; R59.0 Localized enlarged lymph nodes; N18.3 Chronic kidney disease, stage 3 (moderate); D72.829 Elevated white blood cell count, unspecified; M06.9 Rheumatoid arthritis, unspecified; R91.8 Other nonspecific abnormal finding of lung field; R79.89 Other specified abnormal findings of blood chemistry; Z79.52 Long term (current) use of systemic steroids; Z79.899 Other long term (current) drug therapy
CPT/HCPCS: 36415; 36569; 51702; 70450; 71045; 71250; 76770; 80048; 80053; 80061; 81001; 82570; 82962; 83605; 83735; 83880; 83930; 83935; 84295; 84300; 84484; 84550; 85025; 85027; 85610; 85730; 86704; 86706; 87040; 87086; 87340; 87633; 87641; 87804; 90937; 93005; 93306; 97110; 97116; 97162; 97166; 97530; 97535; 97802; 97803; 99285; J7030; J7050; A4216; G0257; J1940

== ENCOUNTER 2019-10-11 07:53 | Inpatient (IN) | payer OTHER, SELFPAY ==
[2019-09-06 18:07] VITALS: BMI 33.2
[2019-10-11] VITALS (14 sets, daily range): BP systolic 140–188; BP diastolic 69–97; PULSE 85–116; RESP 16–20; TEMP 36.4–36.9; O2SAT 92–99; BMI 32.7; BMI 31.6; BMI 31.7
--- NOTE | 2019-10-11 08:15 | EKG12_ITS ---
Test Reason : WEAKNESS Blood Pressure : / mmHG Vent. Rate : 100 BPM Atrial Rate : 100 BPM P-R Int : 168 ms QRS Dur : 088 ms QT Int : 360 ms P-R-T Axes : 065 -23 104 degrees QTc Int : 464 ms Normal sinus rhythm Possible Left atrial enlargement Nonspecific T Wave Abnormality Abnormal ECG Confirmed by KARL LOZANO, ARTEM ([id number]), news video editor EDIS JACOBS ([id number]) on 10/14/2019 2:37:12 PM Referred By: ZENON Confirmed By:JAEL BARAJAS MD
--- NOTE | 2019-10-11 08:16 | ED.VISSUMM ---
- ER Visit Summary Date of Service: 10/11/19 Chief Complaint: Weakness History of Present Illness: The patient is a 64 F who presents with weakness that has been getting progressively worse over the past 3 days. Patient states she feels weak all over. Patient states she felt better after drinking Pedialyte and water. Patient states she was having difficulty sitting upright last night. Patient denies any fevers or chills. Patient does admit to some shortness of breath but denies any cough. Patient denies any chest pain or palpitations. Patient denies any nausea, vomiting, or diarrhea. Physical Examination: Vital signs are stable. Patient is afebrile. Patient is in no acute distress. Oral mucosa is pink and moist. Neck is supple. Trachea is midline. There is no JVD. Heart was regular rate and rhythm. Lungs are clear and equal bilaterally. Abdomen is soft. Bowel sounds are normal. There is no tenderness. Cranial nerves II through XII are intact. There are no focal motor or sensory deficits noted. Extremities are intact. There is 1+ edema of the lower extremities bilaterally. Test Results: EKG shows a normal sinus rhythm with a rate of 100. There is T wave inversion in leads I and aVL. There are no acute ST changes. This was unchanged compared to previous EKG dated 09/08/2019. CBC shows elevated platelets of 634. Comprehensive metabolic profile showed an increase creatinine of 3.45 compared to 2.39 from prior visit. BUN was 51 which was stable compared to previous result. Urinalysis does not show any evidence of urinary tract infection. Troponin was 0.416. This was also increased from previous result of 0.3. PA and lateral chest x-ray was obtained. There is increase in congestive heart failure since prior study. This was interpreted by the radiologist and myself. Emergency Department Course and Treatment: Patient was given IV fluids initially because she felt symptoms similar to her last admission with hyponatremia. Patient had no improvement of her symptoms with this. Patient was given a dose of Lasix when her chest x-ray results returned. Patient was given aspirin for the elevated troponin. Case was discussed with the hospitalist, Dr. Rolon. She will admit the patient to her service. Patient understands and is agreeable with the plan. All questions were answered. Disposition: Admit to hospital Impression: 1. Acute kidney injury 2. Elevated troponin 3. Congestive heart failure This note was generated with [employer] dictation software. It may contain incorrect words, spelling, and punctuation that were not noted in review of the chart prior to signing ED Disposition - Plan for ED Patient: Disposition: Acute Care Hospital [facility] Diagnosis: Acute kidney injury superimposed on CKD, Elevated troponin, Congestive heart failure Referrals: Jabier Arboleda DO [Primary Care Provider] -
[2019-10-11 08:24] LABS: Absolute Lymphocyte Count 1.29 X10^3/uL (0.83-4.51); Absolute Neutrophil Count 8.6 X10^3/uL (2.0-7.7); Basophil# 0.06 X10^3/uL; Basophil% 0.6 % (0-1); Eosinophil# 0.06 X10^3/uL; Eosinophils% 0.6 % (0-5); Hematocrit 40.4 % (37-47); Hemoglobin 12.1 g/dL (12.0-15.0); Lymphocyte # 1.29 X10^3/ul (4.0); Lymphocyte % 12.2 % (19-41); Mean Corpuscular Hgb 24.9 pg (27.0-32.0); Mean Corpuscular Volume 83.1 fL (81-99); Mean Platelet Vol. 9.1 fl (6.2-12.0); Monocyte# 0.55 X10^3/uL; Monocyte% 5.2 % (0-10); NRBC Flagged by Analyzer 0 % (0-5); Neutrophil # 8.55 X10^3/uL (2.7-7.7); Neutrophil % 80.9 % (47-70); Platelet Count 634 K/mm3 (150-450); RBC Distribution Width CV 16.8 % (11.6-14.6); RBC Distribution Width SD 50.7 fl (35.1-43.9); Red Blood Count 4.86 M/mm3 (4.2-5.4); White Blood Count 10.6 K/mm3 (4.4-11.0)
[2019-10-11] MEDS: 0.9% Normal Saline 1,000 ML 1000 ML IV (08:30)
[2019-10-11 08:46] LABS: ALB/GLOB Ratio 0.4 RATIO (0.9-2.4); AST(SGOT) 18 U/L (15-37); Alanine Aminotransfer ALT/SGPT 20 U/L (13-56); Alkaline Phosphatase 169 U/L (45-117); Anion Gap 6 (5-15); BUN 51 mg/dL (7-18); BUN/Creat Ratio 14.8 RATIO (10-20); Calcium,Total 9.4 mg/dL (8.5-10.1); Chloride 108 mmol/L (98-107); Creatinine, Serum 3.45 mg/dL (0.55-1.02); EST Glomerular Filtration Rate 14 mL/min (>60); Est Glom Filt Rate - Afr Amer 17 mL/min (>60); Estimated Creatinine Clearance 15.42 ml/min; Globulin 5.2 g/dL (2.2-4.2); Glucose 108 mg/dL (74-106); Potassium 4.9 mmol/L (3.5-5.1); Protein, Total 7.2 g/dL (6.4-8.2); Sodium Level 139 mmol/L (136-145)
[2019-10-11 08:48] LABS: Bacteria 0 SEEN /hpf (None Seen); Mucous, Urine 0 SEEN /hpf (<or=2+); Squamous Epithelial Cells - UA 0 SEEN /hpf (5-10)
[2019-10-11 08:50] LABS: Color, Urine Yellow (Yellow); Glucose, Dipstick 50 mg/dl (Normal); Ketone-Dipstick Negative (Negative); Leukocyte Esterase-Dipstick Negative /ul (Negative); Nitrite-Dipstick Negative (Negative); Occult Blood-Urine 25 /ul (Negative); Protein-Dipstick 500 mg/dl (Negative); Urine Bilirubin Dipstick Negative (Negative); Urine Clarity Clear (Clear); Urine Urobilinogen Normal (Normal)
[2019-10-11 09:05] LABS: Red Blood Cells-Urine 0-5 SEEN /hpf (0-5); White Blood Cells 0-5 SEEN /hpf (0-5)
--- NOTE | 2019-10-11 09:15 | RAD_ITS ---
STUDY: X-RAY CHEST REASON FOR EXAM: Female, 64 years old. Weakness, sob TECHNIQUE: AP and lateral views of the chest. COMPARISON: Comparison is made with prior study dated September 06, 2019. FINDINGS: EKG electrodes are seen. Since prior study, there has been progressive CHF. Loculated pleural fluid along the lateral aspect of the right hemithorax. There is moderate cardiac enlargement. Normal mediastinum and christine. Normal visualized pulmonary arteries. Normal visualized aortic arch and descending thoracic aorta. There are diffuse degenerative changes of the visualized thoracic spine. Bilateral shoulder replacement. There is no demonstrated abnormality of the visualized soft tissue structures of the upper abdomen. RAD/Chest PA and Lateral IMPRESSION: Since prior study, there has been progressive CHF. Electronically Signed: Pop Pimentel, at 9:43 EST , Service support ,
--- NOTE | 2019-10-11 10:00 | HP.PCM_ITS ---
History of Present Illness Date of Admission: 10/11/19 Chief Complaint: weakness, lethargy The patient is a 64 year old F with a past medical history as outlined was admitted through the ED with a complaint of weakness and lethargy which have been going on for about 3 days prior to presentation. She denied any fever or chills, denied any chest pain or shortness of breath or palpitations. She denied any nausea, vomiting or diarrhea. Patient was admitted with altered mental status and similar symptoms about 4 weeks ago and was managed for hyponatremia and elevated troponins then. She was reviewed by cardiology during that admission, she did not have any invasive work-up done and plan was for her to follow-up with cardiology on outpatient basis. She is here to follow-up with cardiology. On admission in the ED, initial troponin was 0.416 and creatinine was 3.45 compared to baseline of 2.39 from previous visit. EKG showed normal sinus rhythm with heart rate of 100 and T wave inversions in lead I and aVL. Bicarb was 19 and CBC was unremarkable. CXR showed progressive CHF with loculated pleural fluid along the lateral aspect of the right hemithorax. She has been admitted to be managed for non-STEMI and KHUSHBOO on CKD. [] Past Medical History Past Medical History (Chronic Problems): Chronic Problems Acute kidney injury superimposed on CKD (Chronic) Allergies No Known Allergies Allergy (Verified 10/11/19 07:57) Home Medications: Ambulatory Orders Medication Instructions Recorded ALPRAZolam [Xanax] 1 mg PO TID PRN PRN 01/16/18 Amitriptyline HCl [Elavil] 10 mg PO QHS 01/16/18 Baclofen [Lioresal] 10 mg PO 4X/DAY 01/16/18 Ferrous Gluconate [Iron] 1 tab PO TID 01/16/18 Fluoxetine [Prozac] 20 mg PO DAILY 01/16/18 Prednisone 2.5 mg PO BID 01/16/18 traMADol [Ultram] 50 mg PO Q6H PRN PRN 01/16/18 Oxycodone HCl 5 mg PO Q6H PRN PRN 09/06/19 Furosemide [Lasix] 40 mg PO BID@1000,1800 #60 tab 09/10/19 Metoprolol(XL)Succ [Toprol Xl 50 mg PO BID #60 tab 09/10/19 (Beta Azra)] Psychiatric History: No pertinent psych hx [employer] History: No pertinent [employer] history Lives: With Family Smoking Status: Never smoker Alcohol: None Drugs: None - *Family History Maternal History Items: No pertinent history Paternal History Items: No pertinent history Review of Systems Constitutional: Reports: Malaise, Weakness, Fatigue. Denies: Anorexia, Chills, Fever Eyes: Denies: Blurred vision HEENT: Denies: Head Aches, Sinus Congestion, Sinus Drainage Cardiovascular: Denies: Chest Pain, Orthopnea, Palpitations, Paroxysmal Noc. Dyspnea Respiratory: Denies: Cough, Shortness of Breath, Shortness of breath at rest, Shortness of breath upon exertion, Sputum production Gastrointestinal: Denies: Abdominal Pain, Nausea, Vomiting Genitourinary: Denies: Dysuria Musculoskeletal: Denies: Joint Pain, Joint Tenderness Skin: Denies: Rash, Wounds Neurological: Denies: Numbness, Tingling, Focal weakness Psychiatric: Denies: Anxiety, Depression, Homicidal Ideations, Suicidal Ideations Hematologic/ Lymphatic: Denies: Easy Bruising, Easy Bleeding VTE Information - Inpt Only VTE Present on Admission: No VTE Pharm Prophylaxis ordered?: Yes Patient Problems: Active and Suspected Problems Elevated troponin (Acute) Congestive heart failure (Acute) - Physical Exam Vitals/I&O's: Vital Signs Temp Pulse Resp BP Pulse Ox 97.6 F L 109 H 17 177/97 H 98 10/11/19 07:54 10/11/19 07:54 10/11/19 07:54 10/11/19 07:54 10/11/19 07:54 Oxygen Delivery Method Room Air Weight: 202 lb 13.204 oz Body Mass Index (BMI) 32.7 Finger Stick Blood Glucose 143 General: Alert, Oriented x3, Cooperative, Lethargic HEENT: Atraumatic, PERRLA, EOMI, Normocephalic Oral: Dry Mucosa Neck: Supple, No JVD, Negative Carotid Bruits Lungs: Clear to auscultation, Normal air movement, No rhonchi, No wheeze Cardiovascular: Regular rate, Regular Rhythm, Normal S1, Normal S2, No murmurs Abdomen: Bowel Sounds Present, Soft, Non Tender, Non-Distended, No Hepato- splenomegaly Extremities: No clubbing, No cyanosis, Capillary Refill Less than 3 Seconds, - - 1+ bipedal pitting edema Skin: No rashes, No breakdown Musculoskeletal: No Tenderness to Palpation of Joints or Extremities Lymphatic: No Cervical, Supraclavicular, or Inguinal Adenopathy Neurological: Cranial nerves II-XII grossly intact, Neuro grossly intact, Motor Exam 5/5 strength throughout Psych/Mental Status: Normal Affect, Appropriate, Alert and oriented to time, place, person, mood and affect Laboratory Results 10/11/19 08:00: WBC 10.6, RBC 4.86, Hgb 12.1, Hct 40.4, MCV 83.1, MCH 24.9 L, MCHC 30.0 L, RDW Std Deviation 50.7 H, RDW Coeff of Mika 16.8 H, Plt Count 634 H, MPV 9.1, Immature Gran % (Auto) 0.500, Neut % (Auto) 80.9 H, Lymph % (Auto) 12.2 L, [place] % (Auto) 5.2, Eos % (Auto) 0.6, Baso % (Auto) 0.6, Absolute Neuts (auto) 8.6 H, Absolute Lymphs (auto) 1.29, Nucleated RBC % 0 10/11/19 08:00: Sodium 139, Potassium 4.9, Chloride 108 H, Carbon Dioxide 25.0, Anion Gap 6, BUN 51 H, Creatinine 3.45 H, Estim Creat Clear Calc 15.42, Est GFR (MDRD) Af Amer 17 L, Est GFR (MDRD) Non-Af 14 L, BUN/Creatinine Ratio 14.8, Glucose 108 H, Calcium 9.4, Total Bilirubin 0.10 L, AST 18, ALT 20, Alkaline Phosphatase 169 H, Troponin I 0.416 H, Total Protein 7.2, Albumin 2.0 L, Globulin 5.2 H, Albumin/Globulin Ratio 0.4 L 10/11/19 08:35: Urine Color Yellow, Urine Clarity Clear, Urine pH 7.0, Ur Specific [place] 1.010, Urine Protein 500 H, Urine Glucose (UA) 50 H, Urine Ketones Negative, Urine Occult Blood 25 H, Urine Nitrite Negative, Urine Bilirubin Negative, Urine Urobilinogen Normal, Ur Leukocyte Esterase Negative, Urine RBC 0-5 SEEN, Urine WBC 0-5 SEEN, Ur Squamous Epith Cells 0 SEEN, Urine Bacteria 0 SEEN, Urine Mucus 0 SEEN Diagnostic Data Chest X-Ray 10/11/19 09:15 IMPRESSION: Since prior study, there has been progressive CHF. Electronically Signed: Pop Pimentel, at 9:43 EST , Service support , Assessment/Plan All Active Problems Elevated troponin (Acute) Congestive heart failure (Acute) Hyponatremia (Acute) 64-year-old female admitted with a complaint of lethargy. 1. Khushboo on CKD * Cr is 3.45 on admission. Baseline is around 2.3 from last visit. * Will consult nephrology. * Repeat BMP showed creatinine of 3.28 and sodium of 136. Potassium was 5. * Will discuss with nephrology about resuming IV Lasix 40 mg twice daily. * Appreciate nephro recs. * 2. Nonstemi * initial troponin was 0.416. Order for repeat cardiac enzymes was placed at time 11:28am, but this was not done. * Will cycle troponins * had similar presentation at last visit 1 month ago * 2D echo(09/07/2019): EF of 55-60%, with concentric LV hypertrophy, and normal LV systolic function. no regional wall motion abnormalities noted. mild- moderate mitral valve insufficiency. PA systolic pressure is 54mmhg. * during previous admission, no invasive measures were done * elevated troponins could also be due to Khushboo on CKD * Cardiology consulted. Await recs. * 3. Acute on chronic HFpEF * Chest x-ray on admission showed progressive CHF. BNP is pending. BNP at last visit was 2402 * Start diuresis with IV Lasix 40 mg twice daily. * 2D echo as under 2. * Fluid restriction to 1500 cc daily. Monitor intake and output strictly. Insert urinary catheter to monitor urine output * 4. Non-anion gap metabolic acidosis: * Bicarb is 19 and anion gap is normal. Likely due to KHUSHBOO on CKD. Nephrology on board. * If it worsens, will benefit from sodium bicarb. 5. Hypertension: On metoprolol 6. Rheumatoid arthritis: On chronic prednisone. CODE STATUS: Full code * Patient adn her counseled extensively about different types of CODE STATUS including full code, DNR CCA and DNR CCA. Patient elects to be full code. * Total [id number] time 17 minutes. Code Visit Inpatient E&M: 99924 Init Hosp L3 Procedures: 76131 Advncd Care Plan 30 Min
--- NOTE | 2019-10-11 10:13 | NURSING ---
PCU HEART FAILURE, ELEVATED TROPS, KHUSHBOO REINALDO
[2019-10-11] MEDS: Furosemide 40 MG/4 ML Vial IV (10:35)
--- NOTE | 2019-10-11 11:26 | EKG12_ITS ---
Test Reason : CHF Blood Pressure : / mmHG Vent. Rate : 100 BPM Atrial Rate : 100 BPM P-R Int : 164 ms QRS Dur : 086 ms QT Int : 360 ms P-R-T Axes : 061 -15 105 degrees QTc Int : 464 ms Normal sinus rhythm T wave abnormality, consider lateral ischemia Poor R wave progression Abnormal ECG Confirmed by ESTER LOZANO, MARCELLE ([id number]), website/blog editor EDIS JACOBS ([id number]) on 10/16/2019 2:06:29 PM Referred By: REINALDO Confirmed By:MARCELLE NORMAN MD
[2019-10-11] MEDS: hydrALAZINE 20 MG/ML Vial 10 MG IV (12:01)
[2019-10-11] MEDS: 0.9% Saline Lock 10 ML Syringe IV (12:04)
[2019-10-11] MEDS: oxyCODONE 5 MG Tablet PO ×2 (12:49→20:55)
[2019-10-11] MEDS: Metoprolol(XL)Succ 50 MG Tablet PO ×2 (12:50→20:55)
[2019-10-11] MEDS: predniSONE 5 MG Tablet 2.5 MG PO ×2 (12:50→17:39)
--- NOTE | 2019-10-11 14:12 | PCM.CONS.R ---
Consultation - Renal 10/11/19 PCP/ Referring MD: Requesting physician: [] Primary care physician: Jabier Arboleda DO - History of Present Illness History of Present Illness: The patient is a 64 year old F with pmh of HF who presented with a chief complaint of weakness. The patient apparently had also difficulty sitting upright last night as per family present at bedside. Apparently she was drinking a lot of Pedialyte and water. She has some shortness of breath. The patient sodium was 123 and was given IV fluids initially and then after the chest x-ray result came back she was given Lasix IV in the ER. Patient currently is alert and oriented x3 denies chest pain shortness of breath or any complaints. She denies nausea vomiting abdominal pain diarrhea dysuria hematuria. Her baseline creatinine is in the low 2 range. As per family she was noncompliant with fluid restriction at home. She was taking Lasix 40 mg p.o. twice daily. Patient denies falls there is no history of seizures denies headache gait disturbance. - Allergies Allergies: Allergies No Known Allergies Allergy (Verified 10/11/19 07:57) - Current Medications Current Medications: Current Medications Alprazolam (Xanax) 1 mg PO TID PRN PRN PRN Reason: ANXIETY Amitriptyline HCl (Elavil) 10 mg PO QHS [facility] Aspirin (Ecotrin) 81 mg PO DAILY@0800 [facility] Enoxaparin Sodium (Lovenox) 30 mg SC DAILY [facility] Etanercept (Enbrel) 50 mg SQ Q7D [facility] Ferrous Gluconate (Ferrous Gluconate) 324 mg PO TIDCM [facility] Fluoxetine HCl (Prozac) 20 mg PO DAILY [facility] Furosemide (Lasix) 40 mg IV BIDLX [facility] Glucagon () 1 mg IM .X1 PRN PRN Reason: Hypoglycemia Sodium Chloride () 250 mls @ 15 mls/hr IV .[id number] PRN PRN Reason: Saline Flush Sodium Chloride () 250 mls @ 15 mls/hr IV .[id number] PRN PRN Reason: Additional IVPB Infusion Dextrose (Dextrose 10%-Water) 250 mls @ 999 mls/hr IV .Q16M PRN; Protocol PRN Reason: HYPOGLYCEMIA Metoprolol Succinate (Toprol Xl (Beta Azra)) 50 mg PO BID [facility] Last Admin: 10/11/19 12:50 Dose: 50 mg Documented by: Nitroglycerin (Nitrostat) 0.4 mg SUBLINGUAL Q5M PRN PRN Reason: CARDIAC/CHEST PAIN Ondansetron HCl (Zofran) 4 mg IV Q8H PRN PRN PRN Reason: NAUSEA/VOMITING Oxycodone HCl (Oxyir) 5 mg PO Q6H PRN PRN PRN Reason: Pain Score 6-10/10 Last Admin: 10/11/19 12:49 Dose: 5 mg Documented by: Prednisone () 2.5 mg PO BIDCM [facility] Last Admin: 10/11/19 12:50 Dose: 2.5 mg Documented by: Sodium Chloride () 10 - 40 ml IV UD PRN PRN Reason: SALINE FLUSH Last Admin: 10/11/19 12:04 Dose: 10 ml Documented by: Tramadol HCl (Ultram) 50 mg PO Q6H PRN PRN PRN Reason: Pain Score 1-5/10 - Past Medical History Past Medical History (Chronic Problems): Chronic Problems Acute kidney injury superimposed on CKD (Chronic) - Social History Smoking Status: Never smoker - Family History Maternal History Items: No pertinent history Paternal History Items: No pertinent history Review of Systems Eyes: Reports: - - As in history of present illness otherwise essentially negative Patient Problems: Active and Suspected Problems Elevated troponin (Acute) Congestive heart failure (Acute) - Physical Exam Vitals/I&O's: Vital Signs Temp Pulse Resp BP Pulse Ox 98.2 F 95 18 146/69 H 98 10/11/19 14:09 10/11/19 14:09 10/11/19 14:09 10/11/19 14:09 10/11/19 14:09 Oxygen Delivery Method Room Air Weight: 89 kg Body Mass Index (BMI) 31.6 Finger Stick Blood Glucose 143 Intake and Output for Last 24 Hours 10/09/19 10/10/19 10/11/19 23:59 23:59 23:59 Intake Total 999 / 1000 Balance 999 / 999 General: Alert, Oriented x3, Cooperative HEENT: Atraumatic, PERRLA, EOMI, Normocephalic Neck: Supple, No JVD, Negative Carotid Bruits Lungs: Clear to auscultation, Normal air movement Cardiovascular: Regular rate, No murmurs Abdomen: Bowel Sounds Present, Soft, Non Tender, Obese Extremities: No edema, Capillary Refill Less than 3 Seconds, Edema Skin: No rashes, No breakdown Musculoskeletal: No Tenderness to Palpation of Joints or Extremities Neurological: Cranial nerves II-XII grossly intact Psych/Mental Status: Normal Affect, Appropriate Laboratory Results 10/11/19 08:00: WBC 10.6, RBC 4.86, Hgb 12.1, Hct 40.4, MCV 83.1, MCH 24.9 L, MCHC 30.0 L, RDW Std Deviation 50.7 H, RDW Coeff of Mika 16.8 H, Plt Count 634 H, MPV 9.1, Immature Gran % (Auto) 0.500, Neut % (Auto) 80.9 H, Lymph % (Auto) 12.2 L, [place] % (Auto) 5.2, Eos % (Auto) 0.6, Baso % (Auto) 0.6, Absolute Neuts (auto) 8.6 H, Absolute Lymphs (auto) 1.29, Nucleated RBC % 0 10/11/19 08:00: Sodium 139, Potassium 4.9, Chloride 108 H, Carbon Dioxide 25.0, Anion Gap 6, BUN 51 H, Creatinine 3.45 H, Estim Creat Clear Calc 15.42, Est GFR (MDRD) Af Amer 17 L, Est GFR (MDRD) Non-Af 14 L, BUN/Creatinine Ratio 14.8, Glucose 108 H, Calcium 9.4, Total Bilirubin 0.10 L, AST 18, ALT 20, Alkaline Phosphatase 169 H, Troponin I 0.416 H, Total Protein 7.2, Albumin 2.0 L, Globulin 5.2 H, Albumin/Globulin Ratio 0.4 L 10/11/19 08:35: Urine Color Yellow, Urine Clarity Clear, Urine pH 7.0, Ur Specific [place] 1.010, Urine Protein 500 H, Urine Glucose (UA) 50 H, Urine Ketones Negative, Urine Occult Blood 25 H, Urine Nitrite Negative, Urine Bilirubin Negative, Urine Urobilinogen Normal, Ur Leukocyte Esterase Negative, Urine RBC 0-5 SEEN, Urine WBC 0-5 SEEN, Ur Squamous Epith Cells 0 SEEN, Urine Bacteria 0 SEEN, Urine Mucus 0 SEEN Current Medications Alprazolam (Xanax) 1 mg PO TID PRN PRN PRN Reason: ANXIETY Amitriptyline HCl (Elavil) 10 mg PO QHS [facility] Aspirin (Ecotrin) 81 mg PO DAILY@0800 [facility] Enoxaparin Sodium (Lovenox) 30 mg SC DAILY [facility] Etanercept (Enbrel) 50 mg SQ Q7D [facility] Ferrous Gluconate (Ferrous Gluconate) 324 mg PO TIDCM [facility] Fluoxetine HCl (Prozac) 20 mg PO DAILY [facility] Furosemide (Lasix) 40 mg IV BIDLX [facility] Glucagon () 1 mg IM .X1 PRN PRN Reason: Hypoglycemia Sodium Chloride () 250 mls @ 15 mls/hr IV .[id number] PRN PRN Reason: Saline Flush Sodium Chloride () 250 mls @ 15 mls/hr IV .[id number] PRN PRN Reason: Additional IVPB Infusion Dextrose (Dextrose 10%-Water) 250 mls @ 999 mls/hr IV .Q16M PRN; Protocol PRN Reason: HYPOGLYCEMIA Metoprolol Succinate (Toprol Xl (Beta Azra)) 50 mg PO BID [facility] Last Admin: 10/11/19 12:50 Dose: 50 mg Documented by: Nitroglycerin (Nitrostat) 0.4 mg SUBLINGUAL Q5M PRN PRN Reason: CARDIAC/CHEST PAIN Ondansetron HCl (Zofran) 4 mg IV Q8H PRN PRN PRN Reason: NAUSEA/VOMITING Oxycodone HCl (Oxyir) 5 mg PO Q6H PRN PRN PRN Reason: Pain Score 6-10/10 Last Admin: 10/11/19 12:49 Dose: 5 mg Documented by: [facility] () [facility] Last Admin: 10/11/19 12:50 Dose: 2.5 mg Documented by: Sodium Chloride () 10 - 40 ml IV UD PRN PRN Reason: SALINE FLUSH Last Admin: 10/11/19 12:04 Dose: 10 ml Documented by: Tramadol HCl (Ultram) 50 mg PO Q6H PRN PRN PRN Reason: Pain Score 1-5/10 Assessment/Plan All Active Problems Elevated troponin (Acute) Congestive heart failure (Acute) Hyponatremia (Acute) Hyponatremia CKD baseline 2.3 LE edema Heart failure The patient initial sodium was 123 and 3 hours and 40 minutes later it appears to be 139. We will check a stat sodium level now which was already drawn to see if that is true or it was an error. Depending on the sodium we will re-lower the sodium if needed with D5 water and DDAVP Until the sodium is resulted we will hold the Lasix IV twice daily Repeat BMP is pending to see scr. Her creatinine was 2.3 and then 3 hours and 40 minutes was 3.4. A possible error occurred that we are waiting for repeat lab. Compliance with fluid restriction reinforced with the patient family at bedside. Further management per clinical course. Avoid nephrotoxins and overdiuresis The above assessment and plan was discussed at length with the patient and her family present at the bedside. They voiced understanding and agreed to proceed to the plan as outlined above. They were given to opportunity to ask questions and stated that those were answered to their satisfaction. Thank you very much for allowing me to participate in the care of this patient. Please do not hesitate to call if you have any questions or concerns.
[2019-10-11 14:36] LABS: Anion Gap 7 (5-15); BUN 48 mg/dL (7-18); BUN/Creat Ratio 14.6 RATIO (10-20); Calcium,Total 9.2 mg/dL (8.5-10.1); Chloride 110 mmol/L (98-107); Creatinine, Serum 3.28 mg/dL (0.55-1.02); EST Glomerular Filtration Rate 15 mL/min (>60); Est Glom Filt Rate - Afr Amer 18 mL/min (>60); Estimated Creatinine Clearance 16.22 ml/min; Glucose 119 mg/dL (74-106); Sodium Level 136 mmol/L (136-145)
[2019-10-11] MEDS: Desmopressin Acetate 4 MCG/ML Ampul 2 MCG IV (15:21)
[2019-10-11] MEDS: Ferrous Gluconate 324 MG Tablet PO (17:39)
--- NOTE | 2019-10-11 19:03 | CON.PCM_ITS ---
Problem List (1) Elevated troponin Status: Acute Reason for Consult Date of Consultation: 10/11/19 Reason for Consultation: Elevated troponin, volume overload History of Present Illness: The patient is a 64 year old F with a past medical history as outlined was admitted through the ED with a complaint of weakness and lethargy which have been going on for about 3 days prior to presentation. She denied any fever or chills, denied any chest pain or shortness of breath or palpitations. She denied any nausea, vomiting or diarrhea. Patient was admitted with altered mental status and similar symptoms about 4 weeks ago and was managed for hyponatremia and elevated troponins then. She was reviewed by cardiology during that admission, she did not have any invasive work-up done and plan was for her to follow-up with cardiology on outpatient basis. On admission in the ED, initial troponin was 0.416 and creatinine was 3.45 compared to baseline of 2.39 from previous visit. EKG showed normal sinus rhythm with heart rate of 100 and T wave inversions in lead I and aVL. Bicarb was 19 and CBC was unremarkable. CXR showed progressive CHF with loculated pleural fluid along the lateral aspect of the right hemithorax. She has been admitted to be managed for non-STEMI and KHUSHBOO on CKD. Patient denies any chest pain. At last hospitalization an echocardiogram was done which revealed preserved EF, elevated pulmonary pressures. At last visit patient was also volume overloaded. This visit as well she is volume overloaded and has been started on Lasix. 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 The diagnosis of amyloidosis by kidney biopsy was mentioned in Dr. Linton's note from previous admission. Review of systems: All systems reviewed. All others negative except in HPI. Past Medical History Allergies/Adverse Reactions: Allergies No Known Allergies Allergy (Verified 10/11/19 07:57) Home Medications: Ambulatory Orders Medication Instructions Recorded ALPRAZolam [Xanax] 1 mg PO TID PRN PRN 01/16/18 Amitriptyline HCl [Elavil] 10 mg PO QHS 01/16/18 Baclofen [Lioresal] 10 mg PO 4X/DAY 01/16/18 Ferrous Gluconate [Iron] 1 tab PO TID 01/16/18 Fluoxetine [Prozac] 20 mg PO DAILY 01/16/18 Prednisone 2.5 mg PO BID 01/16/18 traMADol [Ultram] 50 mg PO Q6H PRN PRN 01/16/18 Oxycodone HCl 5 mg PO Q6H PRN PRN 09/06/19 Furosemide [Lasix] 40 mg PO BID@1000,1800 #60 tab 09/10/19 Metoprolol(XL)Succ [Toprol Xl 50 mg PO BID #60 tab 09/10/19 (Beta Azra)] Past Medical History (Chronic Problems): Chronic Problems Acute kidney injury superimposed on CKD (Chronic) Psychiatric History: No pertinent psych hx DAIRY TECHNOLOGIST History: No pertinent DAIRY TECHNOLOGIST history - *Family History Maternal History Items: No pertinent history Paternal History Items: No pertinent history Lives: With Family Smoking Status: Never smoker Alcohol: None Drugs: None Objective: Vital Signs Temp Pulse Resp BP Pulse Ox 97.9 F 85 18 140/84 H 92 10/11/19 18:00 10/11/19 18:00 10/11/19 18:00 10/11/19 18:00 10/11/19 18:00 Oxygen Delivery Method Room Air Weight: 196 lb 3.382 oz Body Mass Index (BMI) 31.6 Finger Stick Blood Glucose 143 Intake and Output for Last 24 Hours 10/09/19 10/10/19 10/11/19 23:59 23:59 23:59 Intake Total 2200 / 2200 Output Total 1400 / 1400 Balance 800 / 800 General: Awake, Alert, Oriented x 3 HEENT: Atraumatic Oral: Moist Mucosa Neck: Supple Lungs: Rales - Lev Bases Cardiovascular: Regular Rhythm Abdomen: Soft Extremities: Bilateral Edema +2 Skin: No Rashes Psych/Mental Status: Appropriate 10/11/19 08:00: WBC 10.6, RBC 4.86, Hgb 12.1, Hct 40.4, MCV 83.1, MCH 24.9 L, MCHC 30.0 L, RDW Std Deviation 50.7 H, RDW Coeff of Mika 16.8 H, Plt Count 634 H, MPV 9.1, Immature Gran % (Auto) 0.500, Neut % (Auto) 80.9 H, Lymph % (Auto) 12.2 L, [place] % (Auto) 5.2, Eos % (Auto) 0.6, Baso % (Auto) 0.6, Absolute Neuts (auto) 8.6 H, Absolute Lymphs (auto) 1.29, Nucleated RBC % 0 10/11/19 08:00: Sodium 139, Potassium 4.9, Chloride 108 H, Carbon Dioxide 25.0, Anion Gap 6, BUN 51 H, Creatinine 3.45 H, Estim Creat Clear Calc 15.42, Est GFR (MDRD) Af Amer 17 L, Est GFR (MDRD) Non-Af 14 L, BUN/Creatinine Ratio 14.8, Glucose 108 H, Calcium 9.4, Total Bilirubin 0.10 L, AST 18, ALT 20, Alkaline Phosphatase 169 H, Troponin I 0.416 H, Total Protein 7.2, Albumin 2.0 L, Globulin 5.2 H, Albumin/Globulin Ratio 0.4 L 10/11/19 08:00: B-Natriuretic Peptide 1922.6 H 10/11/19 08:35: Urine Color Yellow, Urine Clarity Clear, Urine pH 7.0, Ur Specific [place] 1.010, Urine Protein 500 H, Urine Glucose (UA) 50 H, Urine Ketones Negative, Urine Occult Blood 25 H, Urine Nitrite Negative, Urine Bilirubin Negative, Urine Urobilinogen Normal, Ur Leukocyte Esterase Negative, Urine RBC 0-5 SEEN, Urine WBC 0-5 SEEN, Ur Squamous Epith Cells 0 SEEN, Urine Bacteria 0 SEEN, Urine Mucus 0 SEEN 10/11/19 14:18: Sodium 136, Potassium 5.0, Chloride 110 H, Carbon Dioxide 19.0 L , Anion Gap 7, BUN 48 H, Creatinine 3.28 H, Estim Creat Clear Calc 16.22, Est GFR (MDRD) Af Amer 18 L, Est GFR (MDRD) Non-Af 15 L, BUN/Creatinine Ratio 14.6, Glucose 119 H, Calcium 9.2 10/11/19 16:45: Troponin I 0.478 H Rhythm: EKG: ECHO: Stress Test: Cardiac Cath: PCI: CT Surgery: Holter monitor: EPS: PPM: CXR: Chest CT Scan: Assessment/Plan 1. Elevated troponin: This could be related to acute kidney injury. However asmentioned by Dr. Bruce, she could have underlying significant CAD and m ay need evaluation with a stress test. This could be done as an outpatient. However her pressing issues do not seem to be related to CAD and possible elevated troponin related to that. Her volume overload could be from hypoalbuminemia which could be secondary to nephrotic syndrome. A UA from prior admission revealed significant proteinuria. I would recommend checking urine protein creatinine ratio. From a cardiac standpoint does not appear that her clinical situation has changed significantly from last visit 4 weeks ago. So at this time I do not think we need to repeat a 2D echo. We will continue to follow this patient along with you.
[2019-10-11 20:39] LABS: Sodium Level 137 mmol/L (136-145)
[2019-10-11 21:19] LABS: Protein, Urine (Random) 976.5 mg/dL (<11.9)
[2019-10-12] VITALS (9 sets, daily range): BP systolic 123–154; BP diastolic 78–83; PULSE 79–94; RESP 16–18; TEMP 36.7–36.8; O2SAT 96–97
[2019-10-12] MEDS: traMADol 50 MG Tablet PO (01:14)
[2019-10-12] MEDS: oxyCODONE 5 MG Tablet PO ×3 (03:12→18:23)
[2019-10-12 06:37] LABS: Absolute Lymphocyte Count 1.91 X10^3/uL (0.83-4.51); Absolute Neutrophil Count 10.5 X10^3/uL (2.0-7.7); Basophil# 0.07 X10^3/uL; Basophil% 0.5 % (0-1); Eosinophil# 0.05 X10^3/uL; Eosinophils% 0.4 % (0-5); Hematocrit 39.3 % (37-47); Hemoglobin 11.7 g/dL (12.0-15.0); Lymphocyte # 1.91 X10^3/ul (4.0); Lymphocyte % 14.3 % (19-41); Mean Corp Hgb Conc 29.8 g/dL (32-36); Mean Corpuscular Hgb 24.5 pg (27.0-32.0); Mean Corpuscular Volume 82.2 fL (81-99); Mean Platelet Vol. 9.4 fl (6.2-12.0); Monocyte# 0.76 X10^3/uL; Monocyte% 5.7 % (0-10); NRBC Flagged by Analyzer 0 % (0-5); Neutrophil # 10.54 X10^3/uL (2.7-7.7); Neutrophil % 78.7 % (47-70); Platelet Count 636 K/mm3 (150-450); RBC Distribution Width SD 50.8 fl (35.1-43.9); Red Blood Count 4.78 M/mm3 (4.2-5.4); White Blood Count 13.4 K/mm3 (4.4-11.0)
[2019-10-12 07:20] LABS: Anion Gap 9 (5-15); BUN 50 mg/dL (7-18); BUN/Creat Ratio 14.7 RATIO (10-20); Chloride 103 mmol/L (98-107); EST Glomerular Filtration Rate 14 mL/min (>60); Est Glom Filt Rate - Afr Amer 18 mL/min (>60); Estimated Creatinine Clearance 15.65 ml/min; Glucose 95 mg/dL (74-106); Potassium 4.5 mmol/L (3.5-5.1); Sodium Level 135 mmol/L (136-145)
[2019-10-12] MEDS: predniSONE 5 MG Tablet 2.5 MG PO ×2 (08:31→18:23)
[2019-10-12] MEDS: Ferrous Gluconate 324 MG Tablet PO ×3 (08:31→18:23)
[2019-10-12] MEDS: Aspirin E.C. 81 MG Tablet PO (08:31)
[2019-10-12] MEDS: Enoxaparin 30 MG/0.3 ML Syringe SC (08:32)
[2019-10-12] MEDS: Metoprolol(XL)Succ 50 MG Tablet PO ×2 (08:32→21:27)
[2019-10-12] MEDS: FLUoxetine 20 MG Capsule PO (08:32)
--- NOTE | 2019-10-12 08:45 | US_ITS ---
STUDY: RENAL ULTRASOUND - COMPLETE REASON FOR EXAM: Female, 64 years old. KHUSHBOO TECHNIQUE: Ultrasound evaluation of the kidneys was performed with real-time and static patterson-scale imaging. COMPARISON: None. FINDINGS: RIGHT KIDNEY: Normal location of the right kidney, which is normal in size. The right kidney measures 12.3 x 6.8 x 4.4 cm. There is echogenic cortex of the right kidney. The renal cortex measures 1.1 cm. There is a 1.3 cm lower pole cyst. There are no right renal calculi. There is no right hydronephrosis. DISTAL RIGHT URETER: There is non-visualization of the distal right ureter. LEFT KIDNEY: Normal location of the left kidney, which is normal in size. The left kidney measures 10.5 x 5.4 x 4.8 cm. There is echogenic cortex of the left kidney. The renal cortex measures 1.3 cm. There is a 1.4 cm mid renal cyst. There are no left renal calculi. There is no left hydronephrosis. DISTAL LEFT URETER: There is non-visualization of the distal left ureter. BLADDER: The urinary bladder has a Rivas catheter and is nondistended. US/Kidney and Bladder IMPRESSION: Echogenic cortex of the kidneys suggesting medical renal disease. Bilateral renal cysts. Electronically Signed: Loki Kumar DO at 15:47 EST Tel [phone], Service support ,
--- NOTE | 2019-10-12 10:25 | PCM.PN.HOSP ---
Patient Problems: Active and Suspected Problems Elevated troponin (Acute) Congestive heart failure (Acute) Subjective: Patient seen and examined. She says she feels much better today. Weakness and lethargy has improved. She is diuresing well and denies any shortness of breath, chest pain, fever or chills, diarrhea vomiting. Review of systems otherwise negative. Creatinine trended up from 0.416 and peaked at 0.638. BNP was one 922.6. Urine output over last 24 hours was 1400mls, and she is in positive balance by 380mls so far. Vitals/I&O's: Vital Signs Temp Pulse Resp BP Pulse Ox 98.2 F 91 18 150/80 H 96 10/12/19 03:00 10/12/19 08:32 10/12/19 03:00 10/12/19 03:00 10/12/19 03:00 Oxygen Delivery Method Room Air Weight: 196 lb 3.382 oz Body Mass Index (BMI) 31.6 Finger Stick Blood Glucose 143 Intake and Output for Last 24 Hours 10/10/19 10/11/19 10/12/19 23:59 23:59 23:59 Intake Total 2200 / 2440 480 / 480 Output Total 1400 / 1900 900 / 900 Balance 800 / 540 -420 / -420 General: Alert, Oriented x3, Cooperative HEENT: Atraumatic, PERRLA, EOMI, Normocephalic Oral: Dry Mucosa Neck: Supple, No JVD, Negative Carotid Bruits Lungs: Clear to auscultation, Normal air movement, No rhonchi, No wheeze Cardiovascular: Regular rate, Regular Rhythm, Normal S1, Normal S2, No murmurs Abdomen: Bowel Sounds Present, Soft, Non Tender, Non-Distended, No Hepato-splenomegaly Extremities: No clubbing, No cyanosis, Capillary Refill Less than 3 Seconds, - - 1+ bipedal pitting edema Skin: No rashes, No breakdown Musculoskeletal: No Tenderness to Palpation of Joints or Extremities Lymphatic: No Cervical, Supraclavicular, or Inguinal Adenopathy Neurological: Cranial nerves II-XII grossly intact, Neuro grossly intact, Motor Exam 5/5 strength throughout Psych/Mental Status: Normal Affect, Appropriate, Alert and oriented to time, place, person, mood and affect Laboratory Results 10/11/19 08:00: B-Natriuretic Peptide 1922.6 H 10/11/19 14:18: Sodium 136, Potassium 5.0, Chloride 110 H, Carbon Dioxide 19.0 L, Anion Gap 7, BUN 48 H, Creatinine 3.28 H, Estim Creat Clear Calc 16.22, Est GFR (MDRD) Af Amer 18 L, Est GFR (MDRD) Non-Af 15 L, BUN/Creatinine Ratio 14.6, Glucose 119 H, Calcium 9.2 10/11/19 16:45: Troponin I 0.478 H 10/11/19 18:58: Sodium 137 10/11/19 18:58: Troponin I 0.513 H 10/11/19 20:50: Urine Creatinine 27.40 10/11/19 20:50: U Random Total Protein 976.5 H 10/11/19 22:26: Troponin I 0.546 H 10/12/19 05:35: WBC 13.4 H, RBC 4.78, Hgb 11.7 L, Hct 39.3, MCV 82.2, MCH 24.5 L, MCHC 29.8 L, RDW Std Deviation 50.8 H, RDW Coeff of Mika 17.0 H, Plt Count 636 H, MPV 9.4, Immature Gran % (Auto) 0.400, Neut % (Auto) 78.7 H, Lymph % (Auto) 14.3 L, [place] % (Auto) 5.7, Eos % (Auto) 0.4, Baso % (Auto) 0.5, Absolute Neuts (auto) 10.5 H, Absolute Lymphs (auto) 1.91, Nucleated RBC % 0 10/12/19 05:35: Sodium 135 L, Potassium 4.5, Chloride 103, Carbon Dioxide 23.0, Anion Gap 9, BUN 50 H, Creatinine 3.40 H, Estim Creat Clear Calc 15.65, Est GFR (MDRD) Af Amer 18 L, Est GFR (MDRD) Non-Af 14 L, BUN/Creatinine Ratio 14.7, Glucose 95, Calcium 9.0, Troponin I 0.638 H* Diagnostic Data Chest X-Ray 10/11/19 09:15 IMPRESSION: Since prior study, there has been progressive CHF. Electronically Signed: Pop Pimentel, at 9:43 EST , Service support , Current Medications Alprazolam (Xanax) 1 mg PO TID PRN PRN PRN Reason: ANXIETY Amitriptyline HCl (Elavil) 10 mg PO QHS [facility] Last Admin: 10/11/19 20:56 Dose: Not Given Documented by: Aspirin (Ecotrin) 81 mg PO DAILY@0800 [facility] Last Admin: 10/12/19 08:31 Dose: 81 mg Documented by: Enoxaparin Sodium (Lovenox) 30 mg SC DAILY [facility] Last Admin: 10/12/19 08:32 Dose: 30 mg Documented by: Ferrous Gluconate (Ferrous Gluconate) 324 mg PO TIDCM [facility] Last Admin: 10/12/19 08:31 Dose: 324 mg Documented by: Fluoxetine HCl (Prozac) 20 mg PO DAILY [facility] Last Admin: 10/12/19 08:32 Dose: 20 mg Documented by: Furosemide (Lasix) 40 mg IV BIDLX [facility] Glucagon () 1 mg IM .X1 PRN PRN Reason: Hypoglycemia Sodium Chloride () 250 mls @ 15 mls/hr IV .[id number] PRN PRN Reason: Saline Flush Sodium Chloride () 250 mls @ 15 mls/hr IV .[id number] PRN PRN Reason: Additional IVPB Infusion Dextrose (Dextrose 10%-Water) 250 mls @ 999 mls/hr IV .Q16M PRN; Protocol PRN Reason: HYPOGLYCEMIA Metoprolol Succinate (Toprol Xl (Beta Azra)) 50 mg PO BID [facility] Last Admin: 10/12/19 08:32 Dose: 50 mg Documented by: Nitroglycerin (Nitrostat) 0.4 mg SUBLINGUAL Q5M PRN PRN Reason: CARDIAC/CHEST PAIN Ondansetron HCl (Zofran) 4 mg IV Q8H PRN PRN PRN Reason: NAUSEA/VOMITING Oxycodone HCl (Oxyir) 5 mg PO Q6H PRN PRN PRN Reason: Pain Score 6-10/10 Last Admin: 10/12/19 09:57 Dose: 5 mg Documented by: Prednisone () 2.5 mg PO BIDCM [facility] Last Admin: 10/12/19 08:31 Dose: 2.5 mg Documented by: Sodium Chloride () 10 - 40 ml IV UD PRN PRN Reason: SALINE FLUSH Last Admin: 10/11/19 12:04 Dose: 10 ml Documented by: Tramadol HCl (Ultram) 50 mg PO Q6H PRN PRN PRN Reason: Pain Score 1-5/10 Last Admin: 10/12/19 01:14 Dose: 50 mg Documented by: STROKE Vital Signs/Narrative: Vital Signs Pulse 10/12/19 08:32 91 Medical Necessity - Tobacco Use Smoking Status: Never smoker Assessment/Plan All Active Problems Elevated troponin (Acute) Congestive heart failure (Acute) Hyponatremia (Acute) 64-year-old female admitted with a complaint of lethargy. 1. Khushboo on CKD Cr was 3.45 on admission, is 3.4 today. nephrology on board: Being diuresed with IV Lasix 40 mg daily. She does have a history of amyloidosis. Kidney biopsy done in the past and this is likely contributing to her KHUSHBOO and fluid overload. 2. Nonstemi initial troponin was 0.416; trended up to a peak of 0.638. 2D echo(09/07/2019): EF of 55-60%, with concentric LV hypertrophy, and normal LV systolic function. no regional wall motion abnormalities noted. mild-moderate mitral valve insufficiency. PA systolic pressure is 54mmhg. per cardiology, eleavted troponin may be related to KHUSHBOO, but she could have underlying significant CAD and may need evaluation with stress test; per cardiology, this could be done on outpatient basis. elevated troponins could also be due to Khushboo on CKD cardiology advocate conservative management for now 3. Acute on chronic HFpEF Chest x-ray on admission showed progressive CHF. as ~ 1900. BNP at last visit was 2402 Being diuresed with IV Lasix. Per cardiology, volume overload could be from hypoalbuminemia which could be secondary to nephrotic syndrome. 2D echo as under 2. Fluid restriction to 1500 cc daily. Monitor intake and output strictly. In slight positive cumulative balance by 318mls, with urine output of 2300mls. 4. Non-anion gap metabolic acidosis: bicarb is now up to 23. 5. Hypertension: On metoprolol 6. Rheumatoid arthritis: On chronic prednisone. CODE STATUS: Full code Code Visit Inpatient E&M: 18220 Subs Hosp L2
[2019-10-12] MEDS: Furosemide 40 MG/4 ML Vial IV ×2 (11:07→18:23)
--- NOTE | 2019-10-12 12:04 | CM.UR ---
RN CM Assessment Introduced role of RN CM to patient. Patient is alert and able to participate in RN CM Assessment. Care providers, pharmacy, and demographics verified. at bedside. Presentation: weakness snd sob Admit Dx: CHF, KHUSHBOO Re-Admit: Was inpatient for CHF 09/06 to 09/10/19. Barriers/Issues: Jew, have to hire transportation. PCP: [facility] Specialists: Dr Reza for RA ([facility]) and renal Dr. Vigil Preferred Pharmacy: [facility] Insurance: [employer] Benefit: none--antoine assistance. LNOK: , Andrew LW/HPOA: Took education in August. Living Arrangements: 2 story home. No difficulty normally in getting around home. ADL?s: Occasional difficulties with RA. Daughter lives with them and can help. Transportation: Hires drivers. DME: walker, cane, shower chair DME co: no preference HHC: None SNF: None Goal: Home, denies needs. DC PLAN: Home, no needs identified at this time. CM will remain available should any needs arise. Hector Banerjee RN, CCM.
[2019-10-12] MEDS: ALPRAZolam 0.5 MG Tablet 1 MG PO (21:26)
[2019-10-13] VITALS (11 sets, daily range): BP systolic 108–124; BP diastolic 60–74; PULSE 71–90; RESP 16–18; TEMP 36.6–36.9; O2SAT 97–99
[2019-10-13 06:14] LABS: Absolute Lymphocyte Count 2.53 X10^3/uL (0.83-4.51); Absolute Neutrophil Count 7.4 X10^3/uL (2.0-7.7); Basophil# 0.07 X10^3/uL; Basophil% 0.6 % (0-1); Eosinophil# 0.25 X10^3/uL; Eosinophils% 2.3 % (0-5); Hematocrit 37.5 % (37-47); Hemoglobin 11.4 g/dL (12.0-15.0); Lymphocyte # 2.53 X10^3/ul (4.0); Mean Corp Hgb Conc 30.4 g/dL (32-36); Mean Corpuscular Hgb 25.1 pg (27.0-32.0); Mean Corpuscular Volume 82.6 fL (81-99); Mean Platelet Vol. 9.2 fl (6.2-12.0); Monocyte# 0.72 X10^3/uL; Monocyte% 6.6 % (0-10); NRBC Flagged by Analyzer 0 % (0-5); Neutrophil # 7.37 X10^3/uL (2.7-7.7); Platelet Count 511 K/mm3 (150-450); RBC Distribution Width CV 16.9 % (11.6-14.6); RBC Distribution Width SD 51.3 fl (35.1-43.9); Red Blood Count 4.54 M/mm3 (4.2-5.4)
[2019-10-13 06:37] LABS: Anion Gap 11 (5-15); BUN 71 mg/dL (7-18); BUN/Creat Ratio 17.3 RATIO (10-20); Calcium,Total 8.4 mg/dL (8.5-10.1); Chloride 102 mmol/L (98-107); EST Glomerular Filtration Rate 12 mL/min (>60); Est Glom Filt Rate - Afr Amer 14 mL/min (>60); Estimated Creatinine Clearance 12.98 ml/min; Glucose 90 mg/dL (74-106); Sodium Level 135 mmol/L (136-145)
[2019-10-13] MEDS: oxyCODONE 5 MG Tablet PO ×3 (06:49→19:53)
[2019-10-13] MEDS: Furosemide 40 MG/4 ML Vial IV (10:24)
[2019-10-13] MEDS: Ferrous Gluconate 324 MG Tablet PO ×3 (10:24→16:32)
[2019-10-13] MEDS: Enoxaparin 30 MG/0.3 ML Syringe SC (10:24)
[2019-10-13] MEDS: predniSONE 5 MG Tablet 2.5 MG PO ×2 (10:25→16:32)
[2019-10-13] MEDS: Aspirin E.C. 81 MG Tablet PO (10:25)
[2019-10-13] MEDS: Metoprolol(XL)Succ 50 MG Tablet PO ×2 (10:25→22:04)
[2019-10-13] MEDS: FLUoxetine 20 MG Capsule PO (10:25)
--- NOTE | 2019-10-13 13:25 | PN_ITS ---
Patient Problems: Active and Suspected Problems Elevated troponin (Acute) Congestive heart failure (Acute) Reason for Visit: lethargy Subjective: Pt resting comfortably in bed NAD, c/o lethargy, otherwise doing well. No CP, palp, pressure, heaviness, tightness, or SOB. She does have ongoing significant LE edema. She denies hx of CAD or CHF. Vitals/I&O's: Vital Signs Temp Pulse Resp BP Pulse Ox 98.3 F 81 16 108/60 99 10/13/19 10:11 10/13/19 10:25 10/13/19 10:11 10/13/19 10:11 10/13/19 10:11 Oxygen Delivery Method Room Air Weight: 196 lb 3.382 oz Body Mass Index (BMI) 31.6 Finger Stick Blood Glucose 143 Intake and Output for Last 24 Hours 10/11/19 10/12/19 10/13/19 23:59 23:59 23:59 Intake Total 2200 / 2440 1460 / 1700 640 / 640 Output Total 1400 / 1900 1850 / 2000 1150 / 1150 Balance 800 / 540 -390 / -300 -510 / -510 General: Alert, Oriented x3, Cooperative HEENT: Atraumatic, PERRLA, EOMI, Normocephalic Neck: Supple, No JVD, Negative Carotid Bruits Lungs: Clear to auscultation, Diminished Cardiovascular: Regular rate, No murmurs Abdomen: Bowel Sounds Present, Soft, Non Tender Extremities: Capillary Refill Less than 3 Seconds, Edema - 2-3+ pitting edema BLE Skin: No rashes, No breakdown Musculoskeletal: No Tenderness to Palpation of Joints or Extremities Neurological: Cranial nerves II-XII grossly intact Psych/Mental Status: Normal Affect, Appropriate, Alert and oriented to time, place, person, mood and affect Laboratory Results 10/13/19 05:23: WBC 11.0, RBC 4.54, Hgb 11.4 L, Hct 37.5, MCV 82.6, MCH 25.1 L, MCHC 30.4 L, RDW Std Deviation 51.3 H, RDW Coeff of Mika 16.9 H, Plt Count 511 H, MPV 9.2, Immature Gran % (Auto) 0.500, Neut % (Auto) 67.0, Lymph % (Auto) 23.0, [place] % (Auto) 6.6, Eos % (Auto) 2.3, Baso % (Auto) 0.6, Absolute Neuts (auto) 7.4, Absolute Lymphs (auto) 2.53, Nucleated RBC % 0 10/13/19 05:23: Sodium 135 L, Potassium 4.0, Chloride 102, Carbon Dioxide 22.0, Anion Gap 11, BUN 71 H, Creatinine 4.10 H, Estim Creat Clear Calc 12.98, Est GFR (MDRD) Af Amer 14 L, Est GFR (MDRD) Non-Af 12 L, BUN/Creatinine Ratio 17.3, Glucose 90, Calcium 8.4 L Current Medications Alprazolam (Xanax) 1 mg PO TID PRN PRN PRN Reason: ANXIETY Last Admin: 10/12/19 21:26 Dose: 1 mg Documented by: Amitriptyline HCl (Elavil) 10 mg PO QHS [facility] Last Admin: 10/12/19 21:27 Dose: Not Given Documented by: Aspirin (Ecotrin) 81 mg PO DAILY@0800 [facility] Last Admin: 10/13/19 10:25 Dose: 81 mg Documented by: Enoxaparin Sodium (Lovenox) 30 mg SC DAILY [facility] Last Admin: 10/13/19 10:24 Dose: 30 mg Documented by: Ferrous Gluconate (Ferrous Gluconate) 324 mg PO TIDCM [facility] Last Admin: 10/13/19 11:31 Dose: 324 mg Documented by: Fluoxetine HCl (Prozac) 20 mg PO DAILY [facility] Last Admin: 10/13/19 10:25 Dose: 20 mg Documented by: Furosemide (Lasix) 40 mg IV BIDLX [facility] Last Admin: 10/13/19 10:24 Dose: 40 mg Documented by: Glucagon () 1 mg IM .X1 PRN PRN Reason: Hypoglycemia Sodium Chloride () 250 mls @ 15 mls/hr IV .[id number] PRN PRN Reason: Saline Flush Sodium Chloride () 250 mls @ 15 mls/hr IV .[id number] PRN PRN Reason: Additional IVPB Infusion Dextrose (Dextrose 10%-Water) 250 mls @ 999 mls/hr IV .Q16M PRN; Protocol PRN Reason: HYPOGLYCEMIA Metoprolol Succinate (Toprol Xl (Beta Azra)) 50 mg PO BID [facility] Last Admin: 10/13/19 10:25 Dose: 50 mg Documented by: Nitroglycerin (Nitrostat) 0.4 mg SUBLINGUAL Q5M PRN PRN Reason: CARDIAC/CHEST PAIN Ondansetron HCl (Zofran) 4 mg IV Q8H PRN PRN PRN Reason: NAUSEA/VOMITING Oxycodone HCl (Oxyir) 5 mg PO Q6H PRN PRN PRN Reason: Pain Score 6-10/10 Last Admin: 10/13/19 13:09 Dose: 5 mg Documented by: Prednisone () 2.5 mg PO BIDCM [facility] Last Admin: 10/13/19 10:25 Dose: 2.5 mg Documented by: Sodium Chloride () 10 - 40 ml IV UD PRN PRN Reason: SALINE FLUSH Last Admin: 10/11/19 12:04 Dose: 10 ml Documented by: Tramadol HCl (Ultram) 50 mg PO Q6H PRN PRN PRN Reason: Pain Score 1-5/10 Last Admin: 10/12/19 01:14 Dose: 50 mg Documented by: STROKE Vital Signs/Narrative: Vital Signs Temp Pulse Resp BP Pulse Ox 10/13/19 10:25 81 10/13/19 10:11 98.3 F 81 16 108/60 99 Medical Necessity - Tobacco Use Smoking Status: Never smoker Assessment/Plan All Active Problems Elevated troponin (Acute) Congestive heart failure (Acute) Hyponatremia (Acute) 1. NSTEMI- trop max 0.638 although this may be elevated 2/2 KHUSHBOO. No CP. CXR shows CHF. Cardiology following. Echo in August shows EF 55-60%, normal LV syst olic function, moderately enlarged left atrium, 1-2+ MVI, 1+ TVI, pulmonary hypertension with PASP of 54. Plan is for outpatient stress. EKG nonspecific changes. Cotninue aspirin/metoprolol 2. KHUSHBOO - worsening. renal US shows medical renal dz, cysts. Nephro following. significant proteinuria. Good urinary output. Hx bx + amyloidosis in the kidneys. Slight hyponatremia. Cut back lasix dose. 3. Acute on chornic diastolic CHF - EF 55%. continue lasix at lower dose, fluid restriction, I/O. Add SUSANA wraps. No SOB however severe LE edema. BNP 1921, CXR c.w CHF. Check TSH. 4. HTN - stable 5. RA - prednisone maintenance therapy. ultram prn, oxy, elavil qhs 6. Depression - prozac, xanax DVT ppx: lovenox --> heparin DC planning: worsening renal dz This patient was seen by Bridger Haro PA-C under the supervision of Dr. Corea.
[2019-10-13 14:18] LABS: Thyroid Stim Hormone (TSH) 1.87 uIU/mL (0.358-3.74)
[2019-10-13] MEDS: Heparin Injection (Vial) 5,000 UNIT/ML VIAL 5000 UNIT SC ×2 (15:09→22:09)
--- NOTE | 2019-10-13 17:01 | PN.RENAL_ITS ---
Patient Problems: Active and Suspected Problems Elevated troponin (Acute) Congestive heart failure (Acute) Subjective: no sob/cp wants to go home - Physical Exam Vitals/I&O's: Vital Signs Temp Pulse Resp BP Pulse Ox 98.4 F 86 16 116/66 97 10/13/19 15:07 10/13/19 15:07 10/13/19 15:07 10/13/19 15:07 10/13/19 15:07 Oxygen Delivery Method Room Air Weight: 89 kg Body Mass Index (BMI) 31.6 Finger Stick Blood Glucose 143 Intake and Output for Last 24 Hours 10/11/19 10/12/19 10/13/19 23:59 23:59 23:59 Intake Total 2200 / 2440 1460 / 1700 640 / 640 Output Total 1400 / 1900 1850 / 2000 1150 / 1150 Balance 800 / 540 -390 / -300 -510 / -510 General: Alert, Oriented x3, Cooperative HEENT: Atraumatic, PERRLA, EOMI, Normocephalic Neck: Supple, No JVD, Negative Carotid Bruits Lungs: Clear to auscultation, Normal air movement Cardiovascular: Regular rate, No murmurs Abdomen: Bowel Sounds Present, Soft, Non Tender Extremities: No edema, Capillary Refill Less than 3 Seconds Skin: No rashes, No breakdown Musculoskeletal: No Tenderness to Palpation of Joints or Extremities Neurological: Cranial nerves II-XII grossly intact Psych/Mental Status: Normal Affect, Appropriate Laboratory Results 10/13/19 05:23: WBC 11.0, RBC 4.54, Hgb 11.4 L, Hct 37.5, MCV 82.6, MCH 25.1 L, MCHC 30.4 L, RDW Std Deviation 51.3 H, RDW Coeff of Mika 16.9 H, Plt Count 511 H, MPV 9.2, Immature Gran % (Auto) 0.500, Neut % (Auto) 67.0, Lymph % (Auto) 23.0, [place] % (Auto) 6.6, Eos % (Auto) 2.3, Baso % (Auto) 0.6, Absolute Neuts (auto) 7.4, Absolute Lymphs (auto) 2.53, Nucleated RBC % 0 10/13/19 05:23: Sodium 135 L, Potassium 4.0, Chloride 102, Carbon Dioxide 22.0, Anion Gap 11, BUN 71 H, Creatinine 4.10 H, Estim Creat Clear Calc 12.98, Est GFR (MDRD) Af Amer 14 L, Est GFR (MDRD) Non-Af 12 L, BUN/Creatinine Ratio 17.3, Glucose 90, Calcium 8.4 L 10/13/19 05:23: TSH 1.87 Current Medications Alprazolam (Xanax) 1 mg PO TID PRN PRN PRN Reason: ANXIETY Last Admin: 10/12/19 21:26 Dose: 1 mg Documented by: Amitriptyline HCl (Elavil) 10 mg PO QHS [facility] Last Admin: 10/12/19 21:27 Dose: Not Given Documented by: Aspirin (Ecotrin) 81 mg PO DAILY@0800 [facility] Last Admin: 10/13/19 10:25 Dose: 81 mg Documented by: Ferrous Gluconate (Ferrous Gluconate) 324 mg PO TIDCM [facility] Last Admin: 10/13/19 16:32 Dose: 324 mg Documented by: Fluoxetine HCl (Prozac) 20 mg PO DAILY [facility] Last Admin: 10/13/19 10:25 Dose: 20 mg Documented by: Furosemide (Lasix) 40 mg IV DAILY [facility] Glucagon () 1 mg IM .X1 PRN PRN Reason: Hypoglycemia Heparin Sodium (Porcine) (Heparin Na) 5,000 unit SC Q8 [facility] Last Admin: 10/13/19 15:09 Dose: 5,000 unit Documented by: Sodium Chloride () 250 mls @ 15 mls/hr IV .[id number] PRN PRN Reason: Saline Flush Sodium Chloride () 250 mls @ 15 mls/hr IV .[id number] PRN PRN Reason: Additional IVPB Infusion Dextrose (Dextrose 10%-Water) 250 mls @ 999 mls/hr IV .Q16M PRN; Protocol PRN Reason: HYPOGLYCEMIA Metoprolol Succinate (Toprol Xl (Beta Azra)) 50 mg PO BID [facility] Last Admin: 10/13/19 10:25 Dose: 50 mg Documented by: Nitroglycerin (Nitrostat) 0.4 mg SUBLINGUAL Q5M PRN PRN Reason: CARDIAC/CHEST PAIN Ondansetron HCl (Zofran) 4 mg IV Q8H PRN PRN PRN Reason: NAUSEA/VOMITING Oxycodone HCl (Oxyir) 5 mg PO Q6H PRN PRN PRN Reason: Pain Score 6-1010 Last Admin: 10/13/19 13:09 Dose: 5 mg Documented by: Prednisone () 2.5 mg PO BIDCM [facility] Last Admin: 10/13/19 16:32 Dose: 2.5 mg Documented by: Sodium Chloride () 10 - 40 ml IV UD PRN PRN Reason: SALINE FLUSH Last Admin: 10/11/19 12:04 Dose: 10 ml Documented by: Tramadol HCl (Ultram) 50 mg PO Q6H PRN PRN PRN Reason: Pain Score 1-12/28 Last Admin: 10/12/19 01:14 Dose: 50 mg Documented by: Medical Necessity - Tobacco Use Smoking Status: Never smoker Assessment/Plan All Active Problems Elevated troponin (Acute) Congestive heart failure (Acute) Hyponatremia (Acute) KHUSHBOO prerenal Hyponatremia minimal CKD baseline 2.3 LE edema Heart failure Scr worse today agree with decreasing lasix will reeval tomorrow f/u CKD w/ h/o amyloidosis h/o renal bx in [place] with her obstetrical tech dr. Phillip upon discharge in 1-2 weeks to be arranged on discharge will need at least same dose lasix 40 bid for HF to maintain euvolemia upon discharge needs voiding trial with Rivas removal Avoid nephrotoxins and overdiuresis
[2019-10-13] MEDS: ALPRAZolam 0.5 MG Tablet 1 MG PO (22:01)
[2019-10-13] MEDS: Glycerin/Hypromellose/PEG400 15 ml Bottle 1 DRP EACH EYE (22:05)
[2019-10-14] VITALS (13 sets, daily range): BP systolic 112–125; BP diastolic 61–70; PULSE 77–89; RESP 12–17; TEMP 36.3–36.8; O2SAT 95–99
[2019-10-14] MEDS: oxyCODONE 5 MG Tablet PO ×3 (05:14→17:43)
[2019-10-14] MEDS: Heparin Injection (Vial) 5,000 UNIT/ML VIAL 5000 UNIT SC ×3 (05:15→22:11)
[2019-10-14 06:11] LABS: Absolute Neutrophil Count 7.9 X10^3/uL (2.0-7.7); Basophil# 0.06 X10^3/uL; Basophil% 0.5 % (0-1); Eosinophil# 0.24 X10^3/uL; Eosinophils% 2.2 % (0-5); Hematocrit 35.2 % (37-47); Lymphocyte % 19.8 % (19-41); Mean Corp Hgb Conc 31.3 g/dL (32-36); Mean Corpuscular Hgb 25.5 pg (27.0-32.0); Mean Corpuscular Volume 81.5 fL (81-99); Mean Platelet Vol. 9.2 fl (6.2-12.0); Monocyte# 0.71 X10^3/uL; Monocyte% 6.4 % (0-10); NRBC Flagged by Analyzer 0 % (0-5); Neutrophil # 7.85 X10^3/uL (2.7-7.7); Neutrophil % 70.6 % (47-70); Platelet Count 461 K/mm3 (150-450); RBC Distribution Width CV 16.6 % (11.6-14.6); RBC Distribution Width SD 49.1 fl (35.1-43.9); Red Blood Count 4.32 M/mm3 (4.2-5.4); White Blood Count 11.1 K/mm3 (4.4-11.0)
[2019-10-14 06:22] LABS: Anion Gap 12 (5-15); BUN 81 mg/dL (7-18); BUN/Creat Ratio 19.7 RATIO (10-20); Chloride 100 mmol/L (98-107); Creatinine, Serum 4.11 mg/dL (0.55-1.02); EST Glomerular Filtration Rate 12 mL/min (>60); Est Glom Filt Rate - Afr Amer 14 mL/min (>60); Estimated Creatinine Clearance 12.95 ml/min; Glucose 96 mg/dL (74-106); Potassium 3.8 mmol/L (3.5-5.1); Sodium Level 133 mmol/L (136-145)
[2019-10-14] MEDS: Aspirin E.C. 81 MG Tablet PO (07:38)
[2019-10-14] MEDS: predniSONE 5 MG Tablet 2.5 MG PO ×2 (07:39→17:39)
[2019-10-14] MEDS: Ferrous Gluconate 324 MG Tablet PO ×3 (07:39→17:39)
[2019-10-14] MEDS: Glycerin/Hypromellose/PEG400 15 ml Bottle 1 DRP EACH EYE ×3 (07:57→22:09)
[2019-10-14] MEDS: Metoprolol(XL)Succ 50 MG Tablet PO ×2 (10:30→22:09)
[2019-10-14] MEDS: FLUoxetine 20 MG Capsule PO (10:30)
[2019-10-14] MEDS: Furosemide 40 MG Tablet PO ×2 (10:30→17:39)
--- NOTE | 2019-10-14 13:11 | PN_ITS ---
<Bridger Haro - Last Filed: 10/14/19 13:53> Patient Problems: Active and Suspected Problems Elevated troponin (Acute) Congestive heart failure (Acute) Reason for Visit: KHUSHBOO Subjective: No improvement in renal function. Good urine output. No irritation with cath. No fever/chills. No SOB. LE edema markedly improved with SUSANA wraps. Vitals/I&O's: Vital Signs Temp Pulse Resp BP Pulse Ox 97.4 F L 81 12 124/64 H 99 10/14/19 09:13 10/14/19 12:01 10/14/19 09:13 10/14/19 10:30 10/14/19 09:13 Oxygen Delivery Method Room Air Weight: 196 lb 3.382 oz Body Mass Index (BMI) 31.6 Finger Stick Blood Glucose 143 Intake and Output for Last 24 Hours 10/12/19 10/13/19 10/14/19 23:59 23:59 23:59 Intake Total 1460 / 1700 1080 / 1080 655 / 655 Output Total 1850 / 2000 1650 / 1650 1075 / 1075 Balance -390 / -300 -570 / -570 -420 / -420 General: Alert, Oriented x3, Cooperative HEENT: Atraumatic, PERRLA, EOMI, Normocephalic Neck: Supple, No JVD, Negative Carotid Bruits Lungs: Clear to auscultation, Normal air movement Cardiovascular: Regular rate, No murmurs Abdomen: Bowel Sounds Present, Soft, Non Tender Extremities: No edema, Capillary Refill Less than 3 Seconds Skin: No rashes, No breakdown Musculoskeletal: No Tenderness to Palpation of Joints or Extremities Neurological: Cranial nerves II-XII grossly intact Psych/Mental Status: Normal Affect, Appropriate, Alert and oriented to time, place, person, mood and affect Laboratory Results 10/13/19 05:23: TSH 1.87 10/14/19 05:40: WBC 11.1 H, RBC 4.32, Hgb 11.0 L, Hct 35.2 L, MCV 81.5, MCH 25.5 L, MCHC 31.3 L, RDW Std Deviation 49.1 H, RDW Coeff of Mika 16.6 H, Plt Count 461 H, MPV 9.2, Immature Gran % (Auto) 0.500, Neut % (Auto) 70.6 H, Lymph % (Auto) 19.8, [place] % (Auto) 6.4, Eos % (Auto) 2.2, Baso % (Auto) 0.5, Absolute Neuts (auto) 7.9 H, Absolute Lymphs (auto) 2.20, Nucleated RBC % 0 10/14/19 05:40: Sodium 133 L, Potassium 3.8, Chloride 100, Carbon Dioxide 21.0, Anion Gap 12, BUN 81 H, Creatinine 4.11 H, Estim Creat Clear Calc 12.95, Est GFR (MDRD) Af Amer 14 L, Est GFR (MDRD) Non-Af 12 L, BUN/Creatinine Ratio 19.7, Glucose 96, Calcium 8.0 L Current Medications Alprazolam (Xanax) 1 mg PO TID PRN PRN PRN Reason: ANXIETY Last Admin: 10/13/19 22:01 Dose: 1 mg Documented by: Amitriptyline HCl (Elavil) 10 mg PO QHS [facility] Last Admin: 10/13/19 22:01 Dose: Not Given Documented by: Aspirin (Ecotrin) 81 mg PO DAILY@0800 [facility] Last Admin: 10/14/19 07:38 Dose: 81 mg Documented by: Ferrous Gluconate (Ferrous Gluconate) 324 mg PO TIDCM [facility] Last Admin: 10/14/19 07:39 Dose: 324 mg Documented by: Fluoxetine HCl (Prozac) 20 mg PO DAILY [facility] Last Admin: 10/14/19 10:30 Dose: 20 mg Documented by: Furosemide (Lasix) 40 mg PO BID@1000,1800 [facility] Last Admin: 10/14/19 10:30 Dose: 40 mg Documented by: Glucagon () 1 mg IM .X1 PRN PRN Reason: Hypoglycemia Heparin Sodium (Porcine) (Heparin Na) 5,000 unit SC Q8 [facility] Last Admin: 10/14/19 05:15 Dose: 5,000 unit Documented by: Sodium Chloride () 250 mls @ 15 mls/hr IV .[id number] PRN PRN Reason: Saline Flush Sodium Chloride () 250 mls @ 15 mls/hr IV .[id number] PRN PRN Reason: Additional IVPB Infusion Dextrose (Dextrose 10%-Water) 250 mls @ 999 mls/hr IV .Q16M PRN; Protocol PRN Reason: HYPOGLYCEMIA Metoprolol Succinate (Toprol Xl (Beta Azra)) 50 mg PO BID [facility] Last Admin: 10/14/19 10:30 Dose: 50 mg Documented by: Nitroglycerin (Nitrostat) 0.4 mg SUBLINGUAL Q5M PRN PRN Reason: CARDIAC/CHEST PAIN Ondansetron HCl (Zofran) 4 mg IV Q8H PRN PRN PRN Reason: NAUSEA/VOMITING Oxycodone HCl (Oxyir) 5 mg PO Q6H PRN PRN PRN Reason: Pain Score 6-10/10 Last Admin: 10/14/19 11:15 Dose: 5 mg Documented by: [facility] () [facility] Last Admin: 10/14/19 07:39 Dose: 2.5 mg Documented by: Sodium Chloride () 10 - 40 ml IV UD PRN PRN Reason: SALINE FLUSH Last Admin: 10/11/19 12:04 Dose: 10 ml Documented by: Tramadol HCl (Ultram) 50 mg PO Q6H PRN PRN PRN Reason: Pain Score 1-5/10 Last Admin: 10/12/19 01:14 Dose: 50 mg Documented by: STROKE Vital Signs/Narrative: Vital Signs Temp Pulse Resp BP Pulse Ox 10/14/19 12:01 81 10/14/19 10:30 81 124/64 H 10/14/19 09:13 97.4 F L 81 12 124/64 H 99 Medical Necessity - Tobacco Use Smoking Status: Never smoker Assessment/Plan All Active Problems Elevated troponin (Acute) Congestive heart failure (Acute) Hyponatremia (Acute) 1. NSTEMI- trop max 0.638 although this may be elevated 2/2 KHUSHBOO. No CP. CXR shows CHF. Cardiology following. Echo in August shows EF 55-60%, normal LV systolic function, moderately enlarged left atrium, 1-2+ MVI, 1+ TVI, pulmonary hypertension with PASP of 54. Plan is for outpatient stress. EKG nonspecific changes. Continue aspirin/metoprolol. O/p cardiology follow up. 2. KHUSHBOO - no significant improvement. Nephrology consult. Lasix to PO. Urine output is good. Maintain stratton for now. 3. Acute on chornic diastolic CHF - EF 55%. continue lasix at lower dose, fluid restriction, I/O. Add SUSANA wraps. No SOB however severe LE edema. BNP 1921, CXR c.w CHF. TSH normal. 4. HTN - stable 5. RA - prednisone maintenance therapy. ultram prn, oxy, elavil qhs 6. Depression - prozac, xanax DVT ppx: heparin DC planning: no improvement in renal function This patient was seen by Bridger Haro PA-C under the supervision of Dr. Braxton <Juan Diego Braxtonsh - Last Filed: 10/14/19 17:51> Reason for Visit: Acute kidney injury, CHF exacerbation Objective: Seen and examined. Patient shortness of breath is improved, overall CHF exacerbation improved. Has left radial AV fistula and was used in the past for temporary dialysis. Creatinine went up 4.1, BUN 81. Copy Chaser is consulted. Vitals/I&O's: Vital Signs Temp Pulse Resp BP Pulse Ox 98.1 F 84 12 125/70 H 95 10/14/19 14:11 10/14/19 16:15 10/14/19 14:11 10/14/19 14:11 10/14/19 14:11 Oxygen Delivery Method Room Air Weight: 196 lb 3.382 oz Body Mass Index (BMI) 31.6 Finger Stick Blood Glucose 143 Intake and Output for Last 24 Hours 10/12/19 10/13/19 10/14/19 23:59 23:59 23:59 Intake Total 1460 / 1700 1080 / 1080 1255 / 1255 Output Total 1850 / 1999 1650 / 1650 1974 / 1974 Balance -390 / -300 -570 / -570 -720 / -720 General: Alert, Oriented x3, Cooperative HEENT: Atraumatic, PERRLA, EOMI, Normocephalic Neck: Supple, No JVD, Negative Carotid Bruits Lungs: Clear to auscultation, No rhonchi, No wheeze, No rales, Diminished Cardiovascular: Regular rate, Regular Rhythm, Normal S1, Normal S2, No murmurs Abdomen: Bowel Sounds Present, Soft, Non Tender Extremities: Capillary Refill Less than 3 Seconds, Edema Skin: No rashes, No breakdown Musculoskeletal: No Tenderness to Palpation of Joints or Extremities, Arthritic Changes Neurological: Cranial nerves II-XII grossly intact, Deep Tendon Reflexes 2+/4 and Symmetrical, Neuro grossly intact Psych/Mental Status: Normal Affect, Appropriate Laboratory Results 10/14/19 05:40: WBC 11.1 H, RBC 4.32, Hgb 11.0 L, Hct 35.2 L, MCV 81.5, MCH 25.5 L, MCHC 31.3 L, RDW Std Deviation 49.1 H, RDW Coeff of Mika 16.6 H, Plt Count 461 H, MPV 9.2, Immature Gran % (Auto) 0.500, Neut % (Auto) 70.6 H, Lymph % (Auto) 19.8, [place] % (Auto) 6.4, Eos % (Auto) 2.2, Baso % (Auto) 0.5, Absolute Neuts (auto) 7.9 H, Absolute Lymphs (auto) 2.20, Nucleated RBC % 0 10/14/19 05:40: Sodium 133 L, Potassium 3.8, Chloride 100, Carbon Dioxide 21.0, Anion Gap 12, BUN 81 H, Creatinine 4.11 H, Estim Creat Clear Calc 12.95, Est GFR (MDRD) Af Amer 14 L, Est GFR (MDRD) Non-Af 12 L, BUN/Creatinine Ratio 19.7, Glucose 96, Calcium 8.0 L Current Medications Alprazolam (Xanax) 1 mg PO TID PRN PRN PRN Reason: ANXIETY Last Admin: 10/13/19 22:01 Dose: 1 mg Documented by: Amitriptyline HCl (Elavil) 10 mg PO QHS [facility] Last Admin: 10/13/19 22:01 Dose: Not Given Documented by: Aspirin (Ecotrin) 81 mg PO DAILY@0800 [facility] Last Admin: 10/14/19 07:38 Dose: 81 mg Documented by: Ferrous Gluconate (Ferrous Gluconate) 324 mg PO TIDCM [facility] Last Admin: 10/14/19 17:39 Dose: 324 mg Documented by: Fluoxetine HCl (Prozac) 20 mg PO DAILY [facility] Last Admin: 10/14/19 10:30 Dose: 20 mg Documented by: Furosemide (Lasix) 40 mg PO BID@1000,1800 [facility] Last Admin: 10/14/19 17:39 Dose: 40 mg Documented by: Glucagon () 1 mg IM .X1 PRN PRN Reason: Hypoglycemia Heparin Sodium (Porcine) (Heparin Na) 5,000 unit SC Q8 [facility] Last Admin: 10/14/19 14:09 Dose: 5,000 unit Documented by: Sodium Chloride () 250 mls @ 15 mls/hr IV .[id number] PRN PRN Reason: Saline Flush Sodium Chloride () 250 mls @ 15 mls/hr IV .[id number] PRN PRN Reason: Additional IVPB Infusion Dextrose (Dextrose 10%-Water) 250 mls @ 999 mls/hr IV .Q16M PRN; Protocol PRN Reason: HYPOGLYCEMIA Metoprolol Succinate (Toprol Xl (Beta Azra)) 50 mg PO BID [facility] Last Admin: 10/14/19 10:30 Dose: 50 mg Documented by: Nitroglycerin (Nitrostat) 0.4 mg SUBLINGUAL Q5M PRN PRN Reason: CARDIAC/CHEST PAIN Ondansetron HCl (Zofran) 4 mg IV Q8H PRN PRN PRN Reason: NAUSEA/VOMITING Oxycodone HCl (Oxyir) 5 mg PO Q6H PRN PRN PRN Reason: Pain Score 6-10/10 Last Admin: 10/14/19 17:43 Dose: 5 mg Documented by: [facility] () [facility] Last Admin: 10/14/19 17:39 Dose: 2.5 mg Documented by: Sodium Chloride () 10 - 40 ml IV UD PRN PRN Reason: SALINE FLUSH Last Admin: 10/11/19 12:04 Dose: 10 ml Documented by: Tramadol HCl (Ultram) 50 mg PO Q6H PRN PRN PRN Reason: Pain Score 1-5/10 Last Admin: 10/12/19 01:14 Dose: 50 mg Documented by: STROKE Vital Signs/Narrative: Vital Signs Temp Pulse Resp BP Pulse Ox 10/14/19 16:15 84 10/14/19 14:11 98.1 F 84 12 125/70 H 95 Assessment/Plan This patient was seen in conjunction with Bridger TATE. I have independently interviewed and examined the patient and reviewed pertinent history, examination findings, laboratory and plan of management. I have reviewed the note and agree with the documented findings with the few additional points. In brief, patient is admitted for non-STEMI, acute on chronic diastolic heart failure, KHUSHBOO on CKD stage III. Patient baseline creatinine is around 2.3 from previous admission. On admission creatinine 3.45. Today BUN/creatinine 81/4.11 and worsening of proteinuria. Copy Chaser is been consulted. He discussed with patient's primary breast buffer in [place]. 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 On immunotherapy therapy for RA. Urine protein creatinine ratio 30 g. Advised symptomatic treatment for now. Advised to cut back on Lasix 40 mg twice daily. Rest of the comorbidities as mentioned above I have discussed my assessment with Bridger TATE and orders have been reviewed. Laboratory Results 10/14/19 05:40: WBC 11.1 H, RBC 4.32, Hgb 11.0 L, Hct 35.2 L, MCV 81.5, MCH 25.5 L, MCHC 31.3 L, RDW Std Deviation 49.1 H, RDW Coeff of Mika 16.6 H, Plt Count 461 H, MPV 9.2, Immature Gran % (Auto) 0.500, Neut % (Auto) 70.6 H, Lymph % (Auto) 19.8, [place] % (Auto) 6.4, Eos % (Auto) 2.2, Baso % (Auto) 0.5, Absolute Neuts (auto) 7.9 H, Absolute Lymphs (auto) 2.20, Nucleated RBC % 0 10/14/19 05:40: Sodium 133 L, Potassium 3.8, Chloride 100, Carbon Dioxide 21.0, Anion Gap 12, BUN 81 H, Creatinine 4.11 H, Estim Creat Clear Calc 12.95, Est GFR (MDRD) Af Amer 14 L, Est GFR (MDRD) Non-Af 12 L, BUN/Creatinine Ratio 19.7, Glucose 96, Calcium 8.0 L Code Visit Inpatient E&M: 11840 Subs Hosp L2
--- NOTE | 2019-10-14 15:44 | PN.RENAL_ITS ---
Patient Problems: Active and Suspected Problems Elevated troponin (Acute) Congestive heart failure (Acute) Subjective: No new complaints - Physical Exam Vitals/I&O's: Vital Signs Temp Pulse Resp BP Pulse Ox 98.1 F 84 12 125/70 H 95 10/14/19 14:11 10/14/19 14:11 10/14/19 14:11 10/14/19 14:11 10/14/19 14:11 Oxygen Delivery Method Room Air Weight: 89 kg Body Mass Index (BMI) 31.6 Finger Stick Blood Glucose 143 Intake and Output for Last 24 Hours 10/12/19 10/13/19 10/14/19 23:59 23:59 23:59 Intake Total 1460 / 1700 1080 / 1080 1255 / 1255 Output Total 185 / 1999 1650 / 1650 1974 Balance -390 / -300 -570 / -570 -720 / -720 General: Alert, Oriented x3, Cooperative HEENT: Atraumatic, PERRLA, EOMI, Normocephalic Neck: Supple, No JVD, Negative Carotid Bruits Lungs: Clear to auscultation, Normal air movement Cardiovascular: Regular rate, No murmurs Abdomen: Bowel Sounds Present, Soft, Non Tender Extremities: No edema, Capillary Refill Less than 3 Seconds Skin: No rashes, No breakdown Musculoskeletal: No Tenderness to Palpation of Joints or Extremities Neurological: Cranial nerves II-XII grossly intact Psych/Mental Status: Normal Affect, Appropriate Laboratory Results 10/14/19 05:40: WBC 11.1 H, RBC 4.32, Hgb 11.0 L, Hct 35.2 L, MCV 81.5, MCH 25.5 L, MCHC 31.3 L, RDW Std Deviation 49.1 H, RDW Coeff of Mika 16.6 H, Plt Count 461 H, MPV 9.2, Immature Gran % (Auto) 0.500, Neut % (Auto) 70.6 H, Lymph % (Auto) 19.8, [place] % (Auto) 6.4, Eos % (Auto) 2.2, Baso % (Auto) 0.5, Absolute Neuts (auto) 7.9 H, Absolute Lymphs (auto) 2.20, Nucleated RBC % 0 10/14/19 05:40: Sodium 133 L, Potassium 3.8, Chloride 100, Carbon Dioxide 21.0, Anion Gap 12, BUN 81 H, Creatinine 4.11 H, Estim Creat Clear Calc 12.95, Est GFR (MDRD) Af Amer 14 L, Est GFR (MDRD) Non-Af 12 L, BUN/Creatinine Ratio 19.7, Glucose 96, Calcium 8.0 L Current Medications Alprazolam (Xanax) 1 mg PO TID PRN PRN PRN Reason: ANXIETY Last Admin: 10/13/19 22:01 Dose: 1 mg Documented by: Amitriptyline HCl (Elavil) 10 mg PO QHS [facility] Last Admin: 10/13/19 22:01 Dose: Not Given Documented by: Aspirin (Ecotrin) 81 mg PO DAILY@0800 [facility] Last Admin: 10/14/19 07:38 Dose: 81 mg Documented by: Ferrous Gluconate (Ferrous Gluconate) 324 mg PO TIDCM [facility] Last Admin: 10/14/19 14:10 Dose: 324 mg Documented by: Fluoxetine HCl (Prozac) 20 mg PO DAILY [facility] Last Admin: 10/14/19 10:30 Dose: 20 mg Documented by: Furosemide (Lasix) 40 mg PO BID@1000,1800 [facility] Last Admin: 10/14/19 10:30 Dose: 40 mg Documented by: Glucagon () 1 mg IM .X1 PRN PRN Reason: Hypoglycemia Heparin Sodium (Porcine) (Heparin Na) 5,000 unit SC Q8 [facility] Last Admin: 10/14/19 14:09 Dose: 5,000 unit Documented by: Sodium Chloride () 250 mls @ 15 mls/hr IV .[id number] PRN PRN Reason: Saline Flush Sodium Chloride () 250 mls @ 15 mls/hr IV .[id number] PRN PRN Reason: Additional IVPB Infusion Dextrose (Dextrose 10%-Water) 250 mls @ 999 mls/hr IV .Q16M PRN; Protocol PRN Reason: HYPOGLYCEMIA Metoprolol Succinate (Toprol Xl (Beta Azra)) 50 mg PO BID [facility] Last Admin: 10/14/19 10:30 Dose: 50 mg Documented by: Nitroglycerin (Nitrostat) 0.4 mg SUBLINGUAL Q5M PRN PRN Reason: CARDIAC/CHEST PAIN Ondansetron HCl (Zofran) 4 mg IV Q8H PRN PRN PRN Reason: NAUSEA/VOMITING Oxycodone HCl (Oxyir) 5 mg PO Q6H PRN PRN PRN Reason: Pain Score 6-1010 Last Admin: 10/14/19 11:15 Dose: 5 mg Documented by: Prednisone () 2.5 mg PO BIDCM [facility] Last Admin: 10/14/19 07:39 Dose: 2.5 mg Documented by: Sodium Chloride () 10 - 40 ml IV UD PRN PRN Reason: SALINE FLUSH Last Admin: 10/11/19 12:04 Dose: 10 ml Documented by: Tramadol HCl (Ultram) 50 mg PO Q6H PRN PRN PRN Reason: Pain Score 1-510 Last Admin: 10/12/19 01:14 Dose: 50 mg Documented by: Medical Necessity - Tobacco Use Smoking Status: Never smoker Assessment/Plan All Active Problems Elevated troponin (Acute) Congestive heart failure (Acute) Hyponatremia (Acute) Acute renal failure Chronic kidney disease stage III Spoke to her primary end finder twisting department in [place]. 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 She was under immunosuppressive therapy for rheumatoid arthritis. Recently renal function and proteinuria have gotten worse. Baseline creatinine seems to be around 1.8-2 with an estimated GFR 35-40. This admission creatinine has worsened and is now up to 4.1. BUN is up to 81. Urine protein creatinine ratio is reading 30 g. This is likely all amyloidosis. Symptomatic treatment for now. For today, cut back on Lasix to 40 mg orally twice a day. If her creatinine is stable tomorrow, can be discharged home and follow-up with primary end finder twisting department I asked her to check weights at home on a regular basis and adjust diuretics accordingly. Discussed with family at bedside
[2019-10-14] MEDS: ALPRAZolam 0.5 MG Tablet 1 MG PO (22:09)
[2019-10-15 02:39] VITALS: BP 118/69; PULSE 79; RESP 17; TEMP 36.3; O2SAT 95
[2019-10-15 03:27] VITALS: PULSE 75
[2019-10-15] MEDS: oxyCODONE 5 MG Tablet PO ×2 (04:20→13:03)
[2019-10-15] MEDS: Heparin Injection (Vial) 5,000 UNIT/ML VIAL 5000 UNIT SC (05:20)
[2019-10-15 06:57] LABS: Anion Gap 12 (5-15); BUN 92 mg/dL (7-18); BUN/Creat Ratio 22.4 RATIO (10-20); Calcium,Total 8.1 mg/dL (8.5-10.1); Chloride 100 mmol/L (98-107); EST Glomerular Filtration Rate 12 mL/min (>60); Est Glom Filt Rate - Afr Amer 14 mL/min (>60); Estimated Creatinine Clearance 12.98 ml/min; Glucose 99 mg/dL (74-106); Potassium 3.8 mmol/L (3.5-5.1); Sodium Level 133 mmol/L (136-145)
[2019-10-15 07:02] VITALS: PULSE 81
[2019-10-15 08:39] VITALS: BP 123/65; PULSE 84; RESP 16; TEMP 36.4; O2SAT 100
[2019-10-15 09:01] VITALS: PULSE 84
[2019-10-15] MEDS: Metoprolol(XL)Succ 50 MG Tablet PO (09:01)
[2019-10-15] MEDS: Furosemide 40 MG Tablet PO (09:01)
[2019-10-15] MEDS: predniSONE 5 MG Tablet 2.5 MG PO (09:02)
[2019-10-15] MEDS: Ferrous Gluconate 324 MG Tablet PO ×2 (09:02→13:03)
[2019-10-15] MEDS: traMADol 50 MG Tablet PO (09:02)
[2019-10-15] MEDS: Aspirin E.C. 81 MG Tablet PO (09:02)
--- NOTE | 2019-10-15 11:41 | PCM.DC ---
- Discharge Diagnoses Current Active Problems: Current Active and Chronic Problems Acute kidney injury superimposed on CKD (Chronic) Elevated troponin (Acute) Congestive heart failure (Acute) You will use the following diet at home:: Renal (restricted protein/sodium), Other - 1500 cc fluid daily, 2500 mg sodium daily. Your food should be the consistency of: Regular Your liquids should be the consistency of: Regular/Thin Discharge Activity: Return to Normal Activity Additional Instructions: weigh yourself daily at the same time each day. If you notice a 2 pound weight gain in 24 hours or 4-5 pounds in 7 days call your doctor for further instructions. Continue morris wraps or compression sock on your legs daily during the day, off at night. Elevate legs while at rest. Allergies/Adverse Reactions: Allergies No Known Allergies Allergy (Verified 10/11/19 07:57) Medications to take at Discharge ALPRAZolam [Xanax] 1 mg PO TID PRN PRN 01/16/18 Baclofen [Lioresal] 10 mg PO 4X/DAY 01/16/18 Ferrous Gluconate [Iron] 1 tab PO TID 01/16/18 Prednisone 2.5 mg PO BID 01/16/18 traMADol [Ultram] 50 mg PO Q6H PRN PRN 01/16/18 Oxycodone HCl 5 mg PO Q6H PRN PRN 09/06/19 Furosemide [Lasix] 40 mg PO BID@1000,1800 #60 tab 09/10/19 Metoprolol(XL)Succ [Toprol Xl (Beta Azra)] 50 mg PO BID #60 tab 09/10/19 Primary Care Physician: Jabier Arboleda DO [Primary Care Provider] - Please follow up with your Primary Care Physician in: 1-2 weeks Test Results: Test results from this visit will be discussed in further detail at your follow-up appointment, if applicable. Please Follow Up With: Your web content developer When: 1 week Please Follow Up With: Yonatan Soler MD When: as directed
--- NOTE | 2019-10-15 11:50 | PHA.DC.MR ---
Pharmacy Service has performed discharge medication reconciliation for this patient. No new medications at time of discharge. Medications reviewed are from previously reported home medications at time of review. Of note; also noted several controlled substances. this pharmacist completed an [place]AR[place] report, which supports current dosing/frequency. The patient's discharge medication list was reviewed for discrepancies and discrepancies were resolved. Home Medications ALPRAZolam [Xanax] 1 mg PO TID PRN PRN 01/16/18 Baclofen [Lioresal] 10 mg PO 4X/DAY 01/16/18 Ferrous Gluconate [Iron] 1 tab PO TID 01/16/18 Prednisone 2.5 mg PO BID 01/16/18 traMADol [Ultram] 50 mg PO Q6H PRN PRN 01/16/18 Oxycodone HCl 5 mg PO Q6H PRN PRN 09/06/19 Furosemide [Lasix] 40 mg PO BID@1000,1800 #60 tab 09/10/19 Metoprolol(XL)Succ [Toprol Xl (Beta Azra)] 50 mg PO BID #60 tab 09/10/19
--- NOTE | 2019-10-15 12:11 | PCM.PN.REN ---
Patient Problems: Active and Suspected Problems Elevated troponin (Acute) Congestive heart failure (Acute) Subjective: no new complaints - Physical Exam Vitals/I&O's: Vital Signs Temp Pulse Resp BP Pulse Ox 97.6 F L 84 16 123/65 H 100 10/15/19 08:39 10/15/19 09:01 10/15/19 08:39 10/15/19 08:39 10/15/19 08:39 Oxygen Delivery Method Room Air Weight: 89 kg Body Mass Index (BMI) 31.6 Finger Stick Blood Glucose 143 Intake and Output for Last 24 Hours 10/13/19 10/14/19 10/15/19 23:59 23:59 23:59 Intake Total 1080 / 1080 1760 / 1760 580 / 580 Output Total 1650 / 1650 1974 Balance -570 / -570 -215 / -215 580 / 580 General: Alert, Oriented x3, Cooperative HEENT: Atraumatic, PERRLA, EOMI, Normocephalic Neck: Supple, No JVD, Negative Carotid Bruits Lungs: Clear to auscultation, Normal air movement Cardiovascular: Regular rate, No murmurs Abdomen: Bowel Sounds Present, Soft, Non Tender Extremities: No edema, Capillary Refill Less than 3 Seconds Skin: No rashes, No breakdown Musculoskeletal: No Tenderness to Palpation of Joints or Extremities Neurological: Cranial nerves II-XII grossly intact Psych/Mental Status: Normal Affect, Appropriate Laboratory Results 10/15/19 05:55: Sodium 133 L, Potassium 3.8, Chloride 100, Carbon Dioxide 21.0, Anion Gap 12, BUN 92 H, Creatinine 4.10 H, Estim Creat Clear Calc 12.98, Est GFR (MDRD) Af Amer 14 L, Est GFR (MDRD) Non-Af 12 L, BUN/Creatinine Ratio 22.4 H, Glucose 99, Calcium 8.1 L Current Medications Alprazolam (Xanax) 1 mg PO TID PRN PRN PRN Reason: ANXIETY Last Admin: 10/14/19 22:09 Dose: 1 mg Documented by: Amitriptyline HCl (Elavil) 10 mg PO QHS [facility] Last Admin: 10/14/19 22:10 Dose: Not Given Documented by: Aspirin (Ecotrin) 81 mg PO DAILY@0800 [facility] Last Admin: 10/15/19 09:02 Dose: 81 mg Documented by: Ferrous Gluconate (Ferrous Gluconate) 324 mg PO TIDCM [facility] Last Admin: 10/15/19 09:02 Dose: 324 mg Documented by: Fluoxetine HCl (Prozac) 20 mg PO DAILY [facility] Last Admin: 10/15/19 09:02 Dose: Not Given Documented by: Furosemide (Lasix) 40 mg PO BID@1000,1800 [facility] Last Admin: 10/15/19 09:01 Dose: 40 mg Documented by: Glucagon () 1 mg IM .X1 PRN PRN Reason: Hypoglycemia Heparin Sodium (Porcine) (Heparin Na) 5,000 unit SC Q8 [facility] Last Admin: 10/15/19 05:20 Dose: 5,000 unit Documented by: Sodium Chloride () 250 mls @ 15 mls/hr IV .[id number] PRN PRN Reason: Saline Flush Sodium Chloride () 250 mls @ 15 mls/hr IV .[id number] PRN PRN Reason: Additional IVPB Infusion Dextrose (Dextrose 10%-Water) 250 mls @ 999 mls/hr IV .Q16M PRN; Protocol PRN Reason: HYPOGLYCEMIA Metoprolol Succinate (Toprol Xl (Beta Azra)) 50 mg PO BID [facility] Last Admin: 10/15/19 09:01 Dose: 50 mg Documented by: Nitroglycerin (Nitrostat) 0.4 mg SUBLINGUAL Q5M PRN PRN Reason: CARDIAC/CHEST PAIN Ondansetron HCl (Zofran) 4 mg IV Q8H PRN PRN PRN Reason: NAUSEA/VOMITING Oxycodone HCl (Oxyir) 5 mg PO Q6H PRN PRN PRN Reason: Pain Score 6-10/10 Last Admin: 10/15/19 04:20 Dose: 5 mg Documented by: [facility] Last Admin: 10/15/19 09:02 Dose: 2.5 mg Documented by: Sodium Chloride () 10 - 40 ml IV UD PRN PRN Reason: SALINE FLUSH Last Admin: 10/11/19 12:04 Dose: 10 ml Documented by: Tramadol HCl (Ultram) 50 mg PO Q6H PRN PRN PRN Reason: Pain Score 1-5/10 Last Admin: 10/15/19 09:02 Dose: 50 mg Documented by: Medical Necessity - Tobacco Use Smoking Status: Never smoker Assessment/Plan All Active Problems Elevated troponin (Acute) Congestive heart failure (Acute) Hyponatremia (Acute) Acute renal failure Chronic kidney disease stage III Spoke to her primary accounting supervisor in [place]. 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 She was under immunosuppressive therapy for rheumatoid arthritis. Recently renal function and proteinuria have gotten worse. Baseline creatinine seems to be around 1.8-2 with an estimated GFR 35-40 as of last month This admission creatinine has worsened and is now up to 4.1. BUN is up to 90. Urine protein creatinine ratio is reading 30 g. This is likely all amyloidosis. Symptomatic treatment for now. For now, cut back on Lasix to 40 mg orally twice a day. Okay to discharge home today She has an appointment with her accounting supervisor on 28 October I asked her to get blood work done this Monday and the results will be sent over to her primary accounting supervisor Explained to her symptoms of renal failure Advised to check daily weights and increase Lasix to 80 mg if any weight gain of 3 to 4 pounds Fluid restriction 50 ounce per day Discussed with family at bedside He has a left arm AV fistula which looks fairly good on exam
[2019-10-15 12:46] VITALS: BP 137/57; PULSE 81; RESP 18; TEMP 36.3; O2SAT 98
--- NOTE | 2019-10-15 14:29 | PCM.DC.SUM ---
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 US/Kidney and Bladder IMPRESSION: Echogenic cortex of the kidneys suggesting medical renal disease. Bilateral renal cysts. Consults: Nephrology - Asher Operations: None Procedures: None Summary of Care Provided: Hospital course: The patient is a 64 year old F with past medical history of amyloidosis with renal involvement biopsy-positive, rheumatoid arthritis, hypertension, depression, who presented to the emergency room with increased weakness, lethargy, significant lower extremity edema. She had elevated troponins and beta natruretic peptide, acute kidney injury, possible T wave inversions in lead I and aVL, bicarb 19. She was admitted for non-STEMI and KHUSHBOO on CKD. She had recently had an echocardiogram with an EF of 55 to 60%, normal function no wall abnormalities, PA pressure of 54 mmHg. BNP was 1900 and CXR showed CHF. She was admitted to the PCU and cardiology and nephrology were consulted. Her troponin peaked at 0.638. Cardiology felt this was likely related to her acute kidney injury. She had no symptoms concerning for an acute coronary syndrome. With her worsening renal function there is no intervention that can be performed at this time regardless. Her urine protein was markedly elevated and she was felt to have nephrotic syndrome accounting for her volume overload. She was given IV lasix for her LE edema and diuresed very well. Renal function progressively worsened. Lasix was titrated back. Renal function stabilized with a Creatining of 4. Urine output remained good. Rob was dc'd and she passed a voiding trial. Nephrology recommended follow up with her primary business mail entry clerk in [place]. I advised her on daily weights, fluid restriction, and monitoring urine output. She will need a BMP in a week. She will need to see her business mail entry clerk in 2 weeks, PCP in 1-2 weeks. She needs to follow up with cardiology as directedShe was discharged home in stable condition. This patient was seen by Bridger Haro PA-C under the supervision of Doctor Fox. [] - Physical Exam Vitals/I&O's: Vital Signs Temp Pulse Resp BP Pulse Ox 97.3 F L 81 18 137/57 H 98 10/15/19 12:46 10/15/19 12:46 10/15/19 12:46 10/15/19 12:46 10/15/19 12:46 Oxygen Delivery Method Room Air Weight: 196 lb 3.382 oz Body Mass Index (BMI) 31.6 Finger Stick Blood Glucose 143 Intake and Output for Last 24 Hours 10/13/19 10/14/19 10/15/19 23:59 23:59 23:59 Intake Total 1080 / 1080 1760 / 1760 1080 / 1080 Output Total 1650 / 1650 1974 Balance -570 / -570 -215 / -215 1080 / 1080 General: Alert, Oriented x3, Cooperative HEENT: Atraumatic, PERRLA, EOMI, Normocephalic Neck: Supple, No JVD, Negative Carotid Bruits Lungs: Clear to auscultation, Normal air movement Cardiovascular: Regular rate, No murmurs Abdomen: Bowel Sounds Present, Soft, Non Tender Extremities: No edema, Capillary Refill Less than 3 Seconds Skin: No rashes, No breakdown Musculoskeletal: No Tenderness to Palpation of Joints or Extremities Neurological: Cranial nerves II-XII grossly intact Psych/Mental Status: Normal Affect, Appropriate, Alert and oriented to time, place, person, mood and affect Laboratory Results 10/15/19 05:55: Sodium 133 L, Potassium 3.8, Chloride 100, Carbon Dioxide 21.0, Anion Gap 12, BUN 92 H, Creatinine 4.10 H, Estim Creat Clear Calc 12.98, Est GFR (MDRD) Af Amer 14 L, Est GFR (MDRD) Non-Af 12 L, BUN/Creatinine Ratio 22.4 H, Glucose 99, Calcium 8.1 L Current Medications Alprazolam (Xanax) 1 mg PO TID PRN PRN PRN Reason: ANXIETY Last Admin: 10/14/19 22:09 Dose: 1 mg Documented by: Amitriptyline HCl (Elavil) 10 mg PO QHS [facility] Last Admin: 10/14/19 22:10 Dose: Not Given Documented by: Aspirin (Ecotrin) 81 mg PO DAILY@0800 [facility] Last Admin: 10/15/19 09:02 Dose: 81 mg Documented by: Ferrous Gluconate (Ferrous Gluconate) 324 mg PO TIDCM [facility] Last Admin: 10/15/19 13:03 Dose: 324 mg Documented by: Fluoxetine HCl (Prozac) 20 mg PO DAILY [facility] Last Admin: 10/15/19 09:02 Dose: Not Given Documented by: Furosemide (Lasix) 40 mg PO BID@1000,1800 [facility] Last Admin: 10/15/19 09:01 Dose: 40 mg Documented by: Glucagon () 1 mg IM .X1 PRN PRN Reason: Hypoglycemia Heparin Sodium (Porcine) (Heparin Na) 5,000 unit SC Q8 [facility] Last Admin: 10/15/19 13:27 Dose: Not Given Documented by: Sodium Chloride () 250 mls @ 15 mls/hr IV .[id number] PRN PRN Reason: Saline Flush Sodium Chloride () 250 mls @ 15 mls/hr IV .[id number] PRN PRN Reason: Additional IVPB Infusion Dextrose (Dextrose 10%-Water) 250 mls @ 999 mls/hr IV .Q16M PRN; Protocol PRN Reason: HYPOGLYCEMIA Metoprolol Succinate (Toprol Xl (Beta Azra)) 50 mg PO BID [facility] Last Admin: 10/15/19 09:01 Dose: 50 mg Documented by: Nitroglycerin (Nitrostat) 0.4 mg SUBLINGUAL Q5M PRN PRN Reason: CARDIAC/CHEST PAIN Ondansetron HCl (Zofran) 4 mg IV Q8H PRN PRN PRN Reason: NAUSEA/VOMITING Oxycodone HCl (Oxyir) 5 mg PO Q6H PRN PRN PRN Reason: Pain Score 6-10/10 Last Admin: 10/15/19 13:03 Dose: 5 mg Documented by: [facility] Last Admin: 10/15/19 09:02 Dose: 2.5 mg Documented by: Sodium Chloride () 10 - 40 ml IV UD PRN PRN Reason: SALINE FLUSH Last Admin: 10/11/19 12:04 Dose: 10 ml Documented by: Tramadol HCl (Ultram) 50 mg PO Q6H PRN PRN PRN Reason: Pain Score 1-5/10 Last Admin: 10/15/19 09:02 Dose: 50 mg Documented by: Discharge Diet: Renal Diet, - - 1500 fluid restriction, 2500 mg sodium daily Discharge Activity: Return to Normal Activity Home Medications: Medications to take at Discharge ALPRAZolam [Xanax] 1 mg PO TID PRN PRN 01/16/18 Baclofen [Lioresal] 10 mg PO 4X/DAY 01/16/18 Ferrous Gluconate [Iron] 1 tab PO TID 01/16/18 Prednisone 2.5 mg PO BID 01/16/18 traMADol [Ultram] 50 mg PO Q6H PRN PRN 01/16/18 Oxycodone HCl 5 mg PO Q6H PRN PRN 09/06/19 Furosemide [Lasix] 40 mg PO BID@1000,1800 #60 tab 09/10/19 Metoprolol(XL)Succ [Toprol Xl (Beta Azra)] 50 mg PO BID #60 tab 09/10/19 Primary Care Physician: Jabier Arboleda DO [Primary Care Provider] - Please follow up with your Primary Care Physician in: 1-2 weeks Please Follow Up With: Your business mail entry clerk When: 1 week Please Follow Up With: Yonatan Soler MD When: as directed Disposition: Home Minutes spent on discharge:: 35 Patient Condition:: Stable Medical Necessity - Tobacco Use Smoking Status: Never smoker Meaningful Use Info Meaningful Use Diagnoses (Choose all that apply): None applicable <Raulito Braxton - Last Filed: 10/15/19 16:56> Discharge Date and Diagnosis - Secondary Discharge Diagnosis Chronic Problems Acute kidney injury superimposed on CKD (Chronic) Hospital Course and Treatment Summary of Care Provided: This patient was seen in conjunction with Bridger TATE. I have independently interviewed and examined the patient and reviewed pertinent history, examination findings, laboratory and plan of management. I have reviewed the note and agree with the documented findings with the few additional points. In brief, patient is admitted for non-STEMI, acute on chronic diastolic heart failure, KHUSHBOO on CKD stage III. Patient baseline creatinine is around 2.3 from previous admission. On admission creatinine 3.45. Today BUN/creatinine 81/4.11 and worsening of proteinuria. Semiconductor Manufacturing Technician is been consulted. He discussed with patient's primary business mail entry clerk in [place]. 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 On immunotherapy therapy for RA. Urine protein creatinine ratio 30 g. Advised symptomatic treatment for now. Advised to cut back on Lasix 40 mg twice daily. Patient primary business mail entry clerk is Dr. Cohen in [facility]. She has appointment on October 28. Patient was seen by business mail entry clerk and advised to increase Lasix to 80 mg if gain of 3 to 4 pounds. Advised to check daily weight. Rest of the comorbidities as mentioned above Discharge medication reconciliation done. Discharge follow-up instructions completed. Discharge process discussed with the patient and all questions were answered to patient's satisfaction. Total time spent, exact 35 minutes on discharge meds reconciliation, examination, coordination of care with nurses and ancillary staff, review of imaging and blood test and discussion with the patient on follow-up instructions I have discussed my assessment with Bridger TATE and orders have be[] Objective: General: Alert, Oriented x3, Cooperative HEENT: Atraumatic, PERRLA, EOMI, Normocephalic Neck: Supple, No JVD, Negative Carotid Bruits Lungs: Clear to auscultation, No rhonchi, No wheeze, No rales, air entry diminished bilateral lung bases Cardiovascular: Regular rate, Regular Rhythm, Normal S1, Normal S2, No murmurs Abdomen: Bowel Sounds Present, Soft, Non Tender Extremities: Capillary Refill Less than 3 Seconds, mild ankle edema. Left wrist AV fistula. Good thrill present Skin: No rashes, No breakdown Musculoskeletal: No Tenderness to Palpation of Joints or Extremities, Arthritic Changes Neurological: Cranial nerves II-XII grossly intact, Deep Tendon Reflexes 2+/4 and Symmetrical, Neuro grossly intact Psych/Mental Status: Normal Affect, Appropriate - Physical Exam Vitals/I&O's: Vital Signs Temp Pulse Resp BP Pulse Ox 97.3 F L 81 18 137/57 H 98 10/15/19 12:46 10/15/19 12:46 10/15/19 12:46 10/15/19 12:46 10/15/19 12:46 Oxygen Delivery Method Room Air Weight: 196 lb 3.382 oz Body Mass Index (BMI) 31.6 Finger Stick Blood Glucose 143 Intake and Output for Last 24 Hours 10/13/19 10/14/19 10/15/19 23:59 23:59 23:59 Intake Total 1080 / 1080 1760 / 1760 1079 / 1080 Output Total 165 / 1650 1974 Balance -570 / -570 -215 / -215 1079 / 1079 Laboratory Results 10/15/19 05:55: Sodium 133 L, Potassium 3.8, Chloride 100, Carbon Dioxide 21.0, Anion Gap 12, BUN 92 H, Creatinine 4.10 H, Estim Creat Clear Calc 12.98, Est GFR (MDRD) Af Amer 14 L, Est GFR (MDRD) Non-Af 12 L, BUN/Creatinine Ratio 22.4 H, Glucose 99, Calcium 8.1 L Code Visit Inpatient E&M: 24930 Disch Hosp
--- NOTE | 2019-10-16 16:38 | CASEMGMT ---
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 ROMAN Jorge
== END 2019-10-15 15:04 | disposition home or self-care (01) | DRG 545 ==
LOC: ED 10:00 → PCU 10:42
PROVIDERS: Internal Medicine; Physician Assistant; Specialist; Admitting Provider Student in an Organized Health Care Education/Training Program; Emergency Provider Emergency Medicine; PCP Family Medicine; Visit Provider Internal Medicine
DX: E85.9 Amyloidosis, unspecified (principal); I21.4 Non-ST elevation (NSTEMI) myocardial infarction; N17.9 Acute kidney failure, unspecified; E87.2 Acidosis; E87.1 Hypo-osmolality and hyponatremia; N04.9 Nephrotic syndrome with unspecified morphologic changes; N18.4 Chronic kidney disease, stage 4 (severe); Z79.52 Long term (current) use of systemic steroids; M06.9 Rheumatoid arthritis, unspecified; F32.9 Major depressive disorder, single episode, unspecified; I10 Essential (primary) hypertension
CPT/HCPCS: 36415; 71046; 76770; 80048; 80053; 81001; 82570; 83880; 84156; 84295; 84443; 84484; 85025; 93005; 97110; 97116; 97162; 97166; 97530; 97802; 97803; 99285; J7030; A4216; J1940; J2597

== ENCOUNTER 2019-10-17 14:53 | Inpatient (IN) | payer OTHER, SELFPAY ==
[2019-10-11 10:56] VITALS: BMI 31.6
[2019-10-17] VITALS (12 sets, daily range): BP systolic 109–142; BP diastolic 50–85; PULSE 68–71; RESP 10–19; TEMP 36.7–36.9; O2SAT 93–100; BMI 30.3
--- NOTE | 2019-10-17 14:57 | EKG12_ITS ---
Test Reason : CP Blood Pressure : / mmHG Vent. Rate : 071 BPM Atrial Rate : 071 BPM P-R Int : 204 ms QRS Dur : 092 ms QT Int : 420 ms P-R-T Axes : 032 -34 149 degrees QTc Int : 456 ms Normal sinus rhythm Left axis deviation Cannot rule out Anterior infarct , age undetermined T wave abnormality, consider lateral ischemia Abnormal ECG Confirmed by KARL LOZANO, ARTEM ([id number]), video effects editor EDIS JACOBS ([id number]) on 10/21/2019 8:51:03 AM Referred By: MADDY Confirmed By:JAEL BARAJAS MD
--- NOTE | 2019-10-17 15:11 | ED.DCSUM_ITS ---
History of Present Illness Chief Complaint: Chest Pain Informant: Patient, Spouse/S.O. Activity at onset: Unknown Timing: Continuous Quality: Tightness Location: Substernal - without radiation Current Severity: Mild, Moderate Maximum Severity: Mild, Moderate Worsened By: Breathing. Not Worsened By: Exertion, Palpation Relieved By: Nothing Associated Symptoms: Dyspnea, Lightheadedness. Negative for: Nausea, Vomiting, Diaphoresis, Cough, Fever, Palpitations Narrative: Patient is very poor informant. She states she was discharged from the hospital 2 days ago, after a 5 or 6-day stay for renal failure. She has chronic kidney disease from renal amyloidosis, she has been dialyzed in the past but not this past week, she has a left upper extremity AV fistula that was placed remotely. She states that while she was in the hospital she had shortness of breath due to fluid on the lungs, and she had this pleuritic retrosternal chest discomfort as well. She states since she has been home her symptoms have worsened. She denies any new symptoms but just feels weak and tired. In looking at her legs, her left one looks erythematous, possibly bruised, swollen into the calf, obviously asymmetric. When asking her about this, she thinks maybe it started while she was in the hospital when they were wrapping her legs. raises the question of a possible blood clot, when asked if she is ever had one, they state they do not know. When asked if she is on an anticoagulant, they do not know. When asked if she has heart problems, they are not sure, but thinks she may have been diagnosed with congestive heart failure. She has been lightheaded but had no syncope. She says that exerting herself/walking and lying down do not seem to make anything feel worse. Recent Illness/Hospitalization: Yes - Past Medical History (1) Congestive heart failure Status: Chronic (2) Hyponatremia Status: Chronic (3) Rheumatoid arthritis Status: Chronic (4) Amyloidosis Status: Chronic (5) CKD (chronic kidney disease) stage 4, GFR 15-29 ml/min Status: Chronic Past Medical History - Allergies and Home Meds Allergies/Adverse Reactions: Allergies No Known Allergies Allergy (Verified 10/17/19 14:54) Doctors: Srini Cohen ([place]) Lives: Spouse/ Significant Other Smoking Status: Never smoker - Family History Maternal Family History: Reports: No pertinent history Paternal Family History: Reports: No pertinent history Review of Systems General: Reports: Malaise. Denies: Chills, Fever, Sweats Eyes: Denies: Visual changes - bilaterally, Diplopia ENT: Denies: Rhinorrhea, Sore throat Cardiovascular: Reports: Chest pain. Denies: Palpitations, Heart racing Respiratory: Reports: Dyspnea. Denies: Cough, Dyspnea on exertion, Orthopnea, Paroxysmal nocturnal dyspnea Gastrointestinal: Reports: Nausea. Denies: Abdominal pain, Vomiting, Diarrhea, Melena, Hematochezia Genitourinary: Denies: Dysuria, Hematuria, Frequency Musculoskeletal: Reports: Swelling, Extremity Pain. Denies: Back pain Skin: Denies: Abscess, Wounds Neurological: Denies: Headache, Weakness, Numbness Physical Exam Vital Signs/Narrative: Vital Signs Temp Pulse Resp BP Pulse Ox 10/17/19 14:54 98.0 F 71 18 109/50 L 93 Inital Vital Signs reviewed: Yes General: Well nourished, Well developed, No Acute Distress - somnolent, but awake and able to converse Head: Normocephalic, Atraumatic Eyes: Perrl, EOMI ENT: Moist mucous membranes, No rhinorrhea Neck: Supple, Nontender, No lymphadenopathy, - - +JVD Cardiovascular: Regular rate, Regular rhythm, Murmur - soft 1/6 systolic Respiratory: No distress, CTA bilaterally, Chest nontender Abdomen: Soft, Nontender, Nondistended, Normal bowel sounds Back: Nontender, Normal Inspection. Negative for: CVA tenderness Extremities: Tenderness - left lower leg diffusely, including calf, Edema - BLE asymmetric, worse on left, Calf Tenderness - left, - - good thrill at AVF left wrist/forearm Skin: No rash, - - erythema w/ tenderness left lower leg Neurological: Alert - awake, somnolent, Oriented x3, Cranial nerves II-XII grossly intact, Normal Strength, Normal Sensation, Lethargic Psychological: Normal affect, Normal Mood Diagnostic/Tx/Re-eval - Rhythm Strip Rhythm Strip: Sinus Rhythm Rate: 71 Ectopy: None - EKG Initial EKG Interpretation: Sinus Rhythm, No Acute Injury Pattern - left axis, Inverted T-W aves - laterally Prior: Unchanged - except left axis a little worse; c/w 10/11/2019 - Medical Decision Making Patient was given an aerosol for her dyspnea which helped a little. She is already speaking in full sentences before that. She does not clinically have uremic syndrome, however her BUN is higher than it was before, currently at 107 and her creatinine is worse to over 4.5. She is clearly headed in the wrong direction and therefore will be admitted to PCU for further evaluation and treatment with routine nephrology consultation. I am holding off on giving her Lasix since she has a blood pressure that is borderline low at 104 systolic and I do not want to worsen her renal failure, and that she is currently not hypoxic and breathing adequately. Of note, limited labs were back at the time of admission, because of extreme difficulty getting blood from her. We did have an IV placed and were able to get a metabolic panel, but nothing else. I had obtained informed consent from the patient to perform a femoral stick, as I thought that was the best way to get blood because she did not technically need a central line or the wrist that goes along with it. I attempted a femoral stick blindly, however was not able to find blood. I went back to perform this but the patient already was admitted to the floor so I went up several hours later and performed a femoral stick on the floor, blood was sent then and per hospitalist request, magnesium and phosphorus levels were also added. Procedures Procedure(s): Right femoral vein puncture --initially attempted blindly with isopropanol prep just medial to the femoral artery pulse, patient was in pain with it and no blood was able to be obtained. Later, was obtained under ultrasound guidance, after local anesthesia with 2 cc of plain 1% lidocaine, and chlorhexidine prep. 20 cc of blood was aspirated, pressure placed afterwards, no bleeding or complications or neurologic symptoms. Patient tolerated very well. ED Disposition - Plan for ED Patient: Disposition: Acute Care Hospital [facility] Diagnosis: Acute kidney injury superimposed on CKD, Elevated troponin, Renal anasarca
--- NOTE | 2019-10-17 15:35 | VDLE_ITS ---
Reason For Study: swelling RIGHT LEFT CFV is compressible, spontaneous, phasic, CFV is compressible, spontaneous, phasic, competent and demonstrates normal competent, and demonstrates normal augmentation. augmentation. Procedure FV is compressible, spontaneous, phasic, Exam performed portable in ED. competent and demonstrates normal The exam was diagnostic. augmentation. A preliminary report was called and/or faxed POP V is compressible, spontaneous, phasic, to Dr. Luna. competent and demonstrates normal augmentation. T/P Trunk is compressible. PTV is compressible. LT PerV is compressible. GSV and Varicose veins are partially compressible with bright intraluminal echoes consistent with chronic SVT. Interpretation Summary There is no evidence of left lower extremity deep vein thrombosis. Chronic superficial thrombophebitis left greast saphenous vein and varicosities with flow around chronic thrombus. Patent and compressible right common femoral vein. Ordering Physician: Paulino Luna Performed By: Gus Horn RVT
--- NOTE | 2019-10-17 16:00 | RAD_ITS ---
STUDY: X-RAY CHEST REASON FOR EXAM: Female, 64 years old. Chest pain. TECHNIQUE: Single AP portable view of the chest. COMPARISON: 10/11/2019. FINDINGS: There is slight congestion, significantly improved since prior study. No focal infiltrates. No gross effusions. Mild cardiomegaly. No other changes. RAD/Chest 1 View (Portable) IMPRESSION: Very slight residual congestive failure markedly improved. Electronically Signed: Jim Frye MD at 16:27 EST , Service support ,
[2019-10-17] MEDS: Albuterol 2.5 MG/3 ML VIAL.NEB. INHALATION (16:05)
[2019-10-17 16:17] LABS: Anion Gap 13 (5-15); BUN/Creat Ratio 23.5 RATIO (10-20); Calcium,Total 8.3 mg/dL (8.5-10.1); Chloride 96 mmol/L (98-107); Creatinine, Serum 4.56 mg/dL (0.55-1.02); EST Glomerular Filtration Rate 10 mL/min (>60); Est Glom Filt Rate - Afr Amer 13 mL/min (>60); Estimated Creatinine Clearance 11.67 ml/min; Glucose 89 mg/dL (74-106); Potassium 5.1 mmol/L (3.5-5.1); Sodium Level 131 mmol/L (136-145)
[2019-10-17 16:23] LABS: BUN 107 mg/dL (7-18)
--- NOTE | 2019-10-17 18:47 | HP.PCM_ITS ---
Problem List (1) Acute kidney injury superimposed on CKD Status: Acute (2) Elevated troponin Status: Chronic (3) Congestive heart failure Status: Chronic (4) Rheumatoid arthritis Status: Chronic (5) Amyloidosis Status: Chronic (6) CKD (chronic kidney disease) stage 4, GFR 15-29 ml/min Status: Chronic (7) Renal anasarca Status: Chronic (8) Hyponatremia Status: Chronic History of Present Illness Date of Admission: 10/17/19 Chief Complaint: Weakness, lethargy. The patient is a 64 year old F who presents emergency room due to weakness and lethargy. Recent admission for the same 10/11/2019. Patient found to have NSTEMI, acute kidney injury. Elevated troponin suspected secondary to acute renal failure at that time. Patient reports following discharge she never felt improved. Denies nausea, vomiting. Reports she is having normal urine output. Continues to have lower extremity swelling. No other new symptoms or complaints. Patient has a left forearm AV fistula that was placed several years ago, has only been used once. She has a past medical history of diastolic CHF, hypertension, AA amyloidosis, rheumatoid arthritis, depression. Past Medical History Past Medical History (Chronic Problems): Chronic Problems Elevated troponin (Chronic) Congestive heart failure (Chronic) Rheumatoid arthritis (Chronic) Amyloidosis (Chronic) CKD (chronic kidney disease) stage 4, GFR 15-29 ml/min (Chronic) Renal anasarca (Chronic) Hyponatremia (Chronic) Allergies No Known Allergies Allergy (Verified 10/17/19 14:54) Home Medications: Ambulatory Orders Medication Instructions Recorded ALPRAZolam [Xanax] 1 mg PO TID PRN PRN 01/16/18 Baclofen [Lioresal] 10 mg PO Q6H 01/16/18 Ferrous Gluconate [Iron] 1 tab PO TID 01/16/18 Prednisone 2.5 mg PO BID 01/16/18 traMADol [Ultram] 50 mg PO Q6H PRN PRN 01/16/18 Oxycodone HCl 5 mg PO Q6H PRN PRN 09/06/19 Furosemide [Lasix] 40 mg PO BID@1000,1800 #60 tab 09/10/19 Metoprolol(XL)Succ [Toprol Xl 50 mg PO BID #60 tab 09/10/19 (Beta Azra)] Surgical History: - - Left forearm AV fistula Psychiatric History: Anxiety, Depression 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 Paternal History Items: - - Denies known paternal medical history including cardiac history. Review of Systems Constitutional: Reports: Malaise, Weakness. Denies: Chills, Fever, Weight Change HEENT: Denies: Head Aches, Sinus Congestion, Sinus Drainage Cardiovascular: Reports: Edema - Bilateral lower extremity. Denies: Chest Pain, Palpitations Respiratory: Denies: Cough, Shortness of breath at rest, Sputum production Gastrointestinal: Denies: Abdominal Pain, Nausea, Vomiting Genitourinary: Denies: Dysuria Musculoskeletal: Denies: Joint Pain, Joint Tenderness Skin: Denies: Rash, Wounds Neurological: Denies: Numbness, Tingling, Focal weakness Psychiatric: Denies: Anxiety, Depression, Homicidal Ideations, Suicidal Ideations Hematologic/ Lymphatic: Denies: Easy Bruising, Easy Bleeding VTE Information - Inpt Only VTE Present on Admission: No VTE Mechan Device Prophylaxis: None VTE Pharm Prophylaxis ordered?: Yes Patient Problems: Active and Suspected Problems Acute kidney injury superimposed on CKD (Acute) - Physical Exam Vitals/I&O's: Vital Signs Temp Pulse Resp BP Pulse Ox 98.0 F 69 19 H 142/85 H 97 10/17/19 14:54 10/17/19 18:38 10/17/19 18:38 10/17/19 18:38 10/17/19 18:38 Oxygen Flow Rate (L/min) 2 Oxygen Delivery Method Room Air Weight: 188 lb Body Mass Index (BMI) 30.3 Finger Stick Blood Glucose 143 General: Oriented x3, Cooperative, - - Drowsy HEENT: Atraumatic, PERRLA, EOMI, Normocephalic Oral: Dry Mucosa Neck: Supple, No JVD, Negative Carotid Bruits Lungs: Clear to auscultation, Normal air movement Cardiovascular: Regular rate, Regular Rhythm, Normal S1, Normal S2, No murmurs Abdomen: Bowel Sounds Present, Soft, Non Tender, Non-Distended Extremities: No clubbing, No cyanosis, Capillary Refill Less than 3 Seconds, Edema - +2 bilateral lower extremity edema, - - Left forearm AV fistula Skin: - - Chronic skin changes bilateral lower extremities Musculoskeletal: No Tenderness to Palpation of Joints or Extremities Neurological: Cranial nerves II-XII grossly intact, Neuro grossly intact Psych/Mental Status: Normal Affect, Appropriate Laboratory Results 10/17/19 15:35: WBC Cancelled, Corrected WBC Cancelled, RBC Cancelled, Hgb Cancelled, Hct Cancelled, MCV Cancelled, MCH Cancelled, MCHC Cancelled, RDW Std Deviation Cancelled, RDW Coeff of Mika Cancelled, Plt Count Cancelled, MPV Cancelled, Immature Gran % (Auto) Cancelled, Neut % (Auto) Cancelled, Lymph % (Auto) Cancelled, [place] % (Auto) Cancelled, Eos % (Auto) Cancelled, Baso % (Auto) Cancelled, Absolute Neuts (auto) Cancelled, Absolute Lymphs (auto) Cancelled, Total Counted Cancelled, Neutrophils % (Manual) Cancelled, Band Neutrophils % Cancelled, Lymphocytes % (Manual) Cancelled, Monocytes % (Manual) Cancelled, Eosinophils % (Manual) Cancelled, Basophils % (Manual) Cancelled, Metamyelocytes % Cancelled, Myelocytes % Cancelled, Promyelocytes % Cancelled, Blast Cells % Cancelled, Plasma Cell % (Manual) Cancelled, Other Cells % Cancelled, Nucleated RBC % Cancelled, Nucleated RBCs/100 WBC Cancelled, Differential Comment Cancelled, Diff Path Review Cancelled, Hypersegmented Neuts Cancelled, Atypical Lymphocytes Cancelled, Reactive Lymphocytes Cancelled, Smudge Cells Cancelled, Toxic Granulation Cancelled, Toxic Vacuolation Cancelled, Dohle Bodies Cancelled, Marlin Rods Cancelled, Platelet Estimate Cancelled, Plt Morphology Comment Cancelled, RBC Morphology Cancelled, Polychromasia Cancelled, Hypochromasia Cancelled, Poikilocytosis Cancelled, Basophilic Stippling Cancelled, Anisocytosis Cancelled, Microcytosis Cancelled, Macrocytosis Cancelled, Spherocytes Cancelled, Sickle Cells Cancelled, Target Cells Cancell ed, Tear Drop Cells Cancelled, Ovalocytes Cancelled, Stomatocytes Cancelled, [place] Bodies Cancelled, [place] Cells Cancelled, Bite Cells Cancelled, Crenated Cell Cancelled, Acanthocytes (Spur) Cancelled, Rouleaux Cancelled, Schistocytes Cancelled 10/17/19 15:35: Sodium 131 L, Potassium 5.1, Chloride 96 L, Carbon Dioxide 22.0, Anion Gap 13, BUN 107 H*, Creatinine 4.56 H, Estim Creat Clear Calc 11.67, Est GFR (MDRD) Af Amer 13 L, Est GFR (MDRD) Non-Af 10 L, BUN/Creatinine Ratio 23.5 H , Glucose 89, Calcium 8.3 L, Troponin I 0.286 H Assessment/Plan All Active Problems Acute kidney injury superimposed on CKD (Acute) 1. Acute kidney injury on chronic kidney disease stage IV secondary to renal amyloidosis-consult nephrology. Recent renal ultrasound demonstrated nonspecific renal parenchymal disease, no hydronephrosis. Left forearm fistula in place. Hold nephrotoxic regimen. Trend BMP. Gentle IV fluids. 2. Metabolic encephalopathy, secondary #1-treatment per above. PT/OT. Renally dose home sedating regimen including baclofen. 3. Elevated troponin-ongoing, suspect secondary to acute renal failure. EKG without ST-T changes. We will not trend enzymes. Recent work-up including echo August 2019 demonstrated EF 55 to 60%, mild to moderate mitral valve insufficiency, mild tricuspid valve insufficiency, pulmonary artery systolic pressure 54 mmHg. 4. Chronic heart failure with preserved ejection fraction-recent echo as noted above. Chest x-ray admission without acute process. Chronic lower extremity ed jessica. DVT ultrasound negative. Benjamín wraps bilateral lower extremities. Lasix regimen on hold secondary to #1. 5. Hypertension-stable, continue metoprolol 50 mg twice daily. 6. AA Amyloidosis-with renal involvement, biopsy positive. 7. Rheumatoid arthritis-on etanercept, low dose prednisone. 8. Abnormal CT of chest-CT 09/07/19 demonstrated small bilateral pleural effusions, larger on the right side which could be loculated. Mediastinal lymphadenopathy. Bilateral lower lobe infiltrate versus atelectasis. Infectious process previously ruled out. Patient is to follow-up with Dr. Linton /Cassia Cazares as previously recommended, as not yet established as outpatient. 9. Depression/anxiety-continue PRN Xanax regimen. Recommend addition of SSRI which can be discussed as outpatient. DVT prophylaxis-heparin subcu This patient was seen by COURTNEY Ingram under the supervision of Dr. Jacome.
[2019-10-17] MEDS: Acetaminophen 325 MG Tablet 650 MG PO (20:12)
[2019-10-17] MEDS: 0.9% Normal Saline 1,000 ML 75 ML IV (20:21)
[2019-10-17] MEDS: oxyCODONE 5 MG Tablet PO (21:07)
[2019-10-17] MEDS: Heparin Injection (Vial) 5,000 UNIT/ML VIAL 5000 UNIT SC (21:08)
[2019-10-17] MEDS: Metoprolol(XL)Succ 50 MG Tablet PO (21:08)
[2019-10-18] VITALS (11 sets, daily range): BP systolic 105–124; BP diastolic 51–74; PULSE 67–83; RESP 14–18; TEMP 36.6–37; O2SAT 95–100
[2019-10-18] MEDS: Ondansetron 4 MG/2 ML Vial IV (01:26)
--- NOTE | 2019-10-18 01:28 | ED.RN ---
THIS RN ACCOMPANIED DR. PRASAD TO PCU FOR FEM STICK. US AT BEDSIDE. GROIN PREPPED WITH CHLORAPREP AND NUMBED WITH LIDOCAINE SOLUTION GIVEN BY DR. PRASAD. BLOOD DRAWN FROM RIGHT GROIN. PT TOLERATED WELL. PCU NURSES INFORMED OF SUCCESSFUL BLOOD DRAW. PT PLACED IN POSITION OF COMFORT. GAUZE DRESSING PLACED OVER SITE, PRESSURE APPLIED FOR [address] PRASAD. PT RESTING COMFORTABLY IN BED, CALL LIGHT INFORMED.
[2019-10-18 01:29] LABS: Absolute Lymphocyte Count 1.93 X10^3/uL (0.83-4.51); Absolute Neutrophil Count 9.1 X10^3/uL (2.0-7.7); Basophil# 0.03 X10^3/uL; Basophil% 0.3 % (0-1); Eosinophil# 0.25 X10^3/uL; Eosinophils% 2.1 % (0-5); Hematocrit 32.6 % (37-47); Hemoglobin 10.2 g/dL (12.0-15.0); Lymphocyte # 1.93 X10^3/ul (4.0); Lymphocyte % 16.2 % (19-41); Mean Corp Hgb Conc 31.3 g/dL (32-36); Mean Corpuscular Hgb 25.1 pg (27.0-32.0); Mean Corpuscular Volume 80.3 fL (81-99); Mean Platelet Vol. 9.4 fl (6.2-12.0); Monocyte# 0.58 X10^3/uL; Monocyte% 4.9 % (0-10); NRBC Flagged by Analyzer 0 % (0-5); Neutrophil # 9.06 X10^3/uL (2.7-7.7); Neutrophil % 75.9 % (47-70); Platelet Count 392 K/mm3 (150-450); RBC Distribution Width CV 16.8 % (11.6-14.6); Red Blood Count 4.06 M/mm3 (4.2-5.4); White Blood Count 11.9 K/mm3 (4.4-11.0)
[2019-10-18 02:37] LABS: Magnesium 2.6 mg/dL (1.6-2.6); Phosphorus 9.6 mg/dL (2.5-4.9)
[2019-10-18 06:54] LABS: Absolute Lymphocyte Count 1.37 X10^3/uL (0.83-4.51); Absolute Neutrophil Count 9.2 X10^3/uL (2.0-7.7); Basophil# 0.03 X10^3/uL; Basophil% 0.3 % (0-1); Eosinophil# 0.16 X10^3/uL; Eosinophils% 1.4 % (0-5); Hematocrit 31.3 % (37-47); Hemoglobin 9.7 g/dL (12.0-15.0); Lymphocyte # 1.37 X10^3/ul (4.0); Lymphocyte % 11.8 % (19-41); Mean Corpuscular Hgb 24.9 pg (27.0-32.0); Mean Corpuscular Volume 80.5 fL (81-99); Mean Platelet Vol. 9.9 fl (6.2-12.0); Monocyte# 0.77 X10^3/uL; Monocyte% 6.7 % (0-10); NRBC Flagged by Analyzer 0 % (0-5); Neutrophil % 79.5 % (47-70); Platelet Count 371 K/mm3 (150-450); RBC Distribution Width SD 49.4 fl (35.1-43.9); Red Blood Count 3.89 M/mm3 (4.2-5.4); White Blood Count 11.6 K/mm3 (4.4-11.0)
[2019-10-18 07:25] LABS: Anion Gap 13 (5-15); BUN 102 mg/dL (7-18); BUN/Creat Ratio 22.6 RATIO (10-20); Calcium,Total 8.1 mg/dL (8.5-10.1); Chloride 98 mmol/L (98-107); Creatinine, Serum 4.52 mg/dL (0.55-1.02); EST Glomerular Filtration Rate 10 mL/min (>60); Est Glom Filt Rate - Afr Amer 13 mL/min (>60); Estimated Creatinine Clearance 11.77 ml/min; Glucose 91 mg/dL (74-106); Potassium 4.1 mmol/L (3.5-5.1); Sodium Level 131 mmol/L (136-145)
[2019-10-18] MEDS: Aspirin 81 MG TAB.CHEW PO (08:45)
[2019-10-18] MEDS: predniSONE 5 MG Tablet 2.5 MG PO ×2 (08:45→17:42)
[2019-10-18] MEDS: oxyCODONE 5 MG Tablet PO ×2 (08:45→14:50)
[2019-10-18] MEDS: Ferrous Gluconate 324 MG Tablet PO ×2 (08:45→17:41)
[2019-10-18] MEDS: 0.9% Normal Saline 1,000 ML 75 ML IV (08:46)
--- NOTE | 2019-10-18 10:42 | CASEMGMT ---
Per Dr. Sterling, pt needs set up for OP dialysis at this time. This RN CM to room and pt/ state that pt was seeing a anesthesiologist assistant certified in [place], but after figuring out the distance from their home to the [place] and [facility], pt/ state they would like [facility] at this time. does state concerns regarding transportation to and from dialysis and this RN CM placed a call to Marlin at [facility] in regards to referral and transportation. Marlin is aware of referral and states that she will have ROHINI Colbert, call this RN CM back regarding transportation. Pt/ updated on all at this time. Pt states already has a fistula that was placed 5 years ago and was only used once which was in August of 2019 while admitted here. Pt did have a hep B drawn at that time but per plumbing inspector, pt will need a new one drawn and she will take care of this with pt's 1st run today. CM to follow. Per Dr. Sterling, pt will be here thru the weekend until dialysis fully set up. SStaten RN RONIT
[2019-10-18] MEDS: Lidocaine/Prilocaine HCl 5 GM Tube TOPICAL (11:00)
[2019-10-18 12:36] LABS: Hepatitis B Surface Antibody Non-Reactive; Hepatitis B Surface Antigen Non-Reactive (Nonreactive)
--- NOTE | 2019-10-18 13:50 | DIALYSIS ---
Hemodialysis x 2 hours today via LAVF using 17G sharps. -1000ml off. tolerated well. Stable t/o. See flowsheet for details. Hemostasis obtained x 5 mins. Report to Declan RIZVI.
--- NOTE | 2019-10-18 13:57 | PN_ITS ---
Patient Problems: Active and Suspected Problems Acute kidney injury superimposed on CKD (Acute) Subjective: Patient seen and examined. Continues to have intermittent drowsiness and generalized fatigue. Patient to start dialysis today. at bedside, denies questions or concerns. - Physical Exam Vitals/I&O's: Vital Signs Temp Pulse Resp BP Pulse Ox 97.9 F 70 14 105/51 L 97 10/18/19 08:41 10/18/19 08:41 10/18/19 08:41 10/18/19 08:41 10/18/19 08:41 Oxygen Flow Rate (L/min) 2 Oxygen Delivery Method Room Air Weight: 191 lb 5.78 oz Body Mass Index (BMI) 30.3 Finger Stick Blood Glucose 143 Intake and Output for Last 24 Hours 10/16/19 10/17/19 10/18/19 23:59 23:59 23:59 Intake Total 2166.25 / 2166.25 Balance 2166.25 / 2166.25 General: Oriented x3, Cooperative, - - Drowsy HEENT: Atraumatic, PERRLA, EOMI, Normocephalic Oral: Dry Mucosa Neck: Supple, No JVD, Negative Carotid Bruits Lungs: Clear to auscultation, Normal air movement Cardiovascular: Regular rate, Regular Rhythm, Normal S1, Normal S2, No murmurs Abdomen: Bowel Sounds Present, Soft, Non Tender, Non-Distended Extremities: No clubbing, No cyanosis, Edema - +2 bilateral lower extremity edema, - - Left forearm AV fistula Skin: No rashes, No breakdown, - - Chronic skin changes bilateral lower extremities Musculoskeletal: No Tenderness to Palpation of Joints or Extremities Neurological: Cranial nerves II-XII grossly intact, Neuro grossly intact Psych/Mental Status: Normal Affect, Appropriate Laboratory Results 10/17/19 15:35: WBC Cancelled, Corrected WBC Cancelled, RBC Cancelled, Hgb Cancelled, Hct Cancelled, MCV Cancelled, MCH Cancelled, MCHC Cancelled, RDW Std Deviation Cancelled, RDW Coeff of Mika Cancelled, Plt Count Cancelled, MPV Cancelled, Immature Gran % (Auto) Cancelled, Neut % (Auto) Cancelled, Lymph % (Auto) Cancelled, [place] % (Auto) Cancelled, Eos % (Auto) Cancelled, Baso % (Auto) Cancelled, Absolute Neuts (auto) Cancelled, Absolute Lymphs (auto) Cancelled, Total Counted Cancelled, Neutrophils % (Manual) Cancelled, Band Neutrophils % Cancelled, Lymphocytes % (Manual) Cancelled, Monocytes % (Manual) Cancelled, Eosinophils % (Manual) Cancelled, Basophils % (Manual) Cancelled, Metamyelocytes % Cancelled, Myelocytes % Cancelled, Promyelocytes % Cancelled, Blast Cells % Cancelled, Plasma Cell % (Manual) Cancelled, Other Cells % Cancelled, Nucleated RBC % Cancelled, Nucleated RBCs/100 WBC Cancelled, Differential Comment Cancelled, Diff Path Review Cancelled, Hypersegmented Neuts Cancelled, Atypical Lymphocytes Cancelled, Reactive Lymphocytes Cancelled, Smudge Cells Cancelled, Toxic Granulation Cancelled, Toxic Vacuolation Cancelled, Dohle Bodies Cancelled, Marlin Rods Cancelled, Platelet Estimate Cancelled, Plt Morphology Comment Cancelled, RBC Morphology Cancelled, Polychromasia Cancelled, Hypochromasia Cancelled, Poikilocytosis Cancelled, Basophilic Stippling Cancelled, Anisocytosis Cancelled, Microcytosis Cancelled, Macrocytosis Cancelled, Spherocytes Cancelled, Sickle Cells Cancelled, Target Cells Cancelled, Tear Drop Cells Cancelled, Ovalocytes Cancelled, Stomatocytes Cancelled, [place] Bodies Cancelled, [place] Cells Cancelled, Bite Cells Cancelled, Crenated Cell Cancelled, Acanthocytes (Spur) Cancelled, Rouleaux Cancelled, Schistocytes Cancelled 10/17/19 15:35: Sodium 131 L, Potassium 5.1, Chloride 96 L, Carbon Dioxide 22.0, Anion Gap 13, BUN 107 H*, Creatinine 4.56 H, Estim Creat Clear Calc 11.67, Est GFR (MDRD) Af Amer 13 L, Est GFR (MDRD) Non-Af 10 L, BUN/Creatinine Ratio 23.5 H , Glucose 89, Calcium 8.3 L, Troponin I 0.286 H 10/18/19 01:21: WBC 11.9 H, RBC 4.06 L, Hgb 10.2 L, Hct 32.6 L, MCV 80.3 L, MCH 25.1 L, MCHC 31.3 L, RDW Std Deviation 49.0 H, RDW Coeff of Mika 16.8 H, Plt Count 392, MPV 9.4, Immature Gran % (Auto) 0.600, Neut % (Auto) 75.9 H, Lymph % (Auto) 16.2 L, [place] % (Auto) 4.9, Eos % (Auto) 2.1, Baso % (Auto) 0.3, Absolute Neuts (auto) 9.1 H, Absolute Lymphs (auto) 1.93, Nucleated RBC % 0 10/18/19 01:21: Troponin I 0.249 H 10/18/19 01:21: Phosphorus 9.6 H*, Magnesium 2.6 10/18/19 06:27: WBC 11.6 H, RBC 3.89 L, Hgb 9.7 L, Hct 31.3 L, MCV 80.5 L, MCH 24.9 L, MCHC 31.0 L, RDW Std Deviation 49.4 H, RDW Coeff of Mika 17.0 H, Plt Count 371, MPV 9.9, Immature Gran % (Auto) 0.300, Neut % (Auto) 79.5 H, Lymph % (Auto) 11.8 L, [place] % (Auto) 6.7, Eos % (Auto) 1.4, Baso % (Auto) 0.3, Absolute Neuts (auto) 9.2 H, Absolute Lymphs (auto) 1.37, Nucleated RBC % 0 10/18/19 06:27: Sodium 131 L, Potassium 4.1, Chloride 98, Carbon Dioxide 20.0 L, Anion Gap 13, BUN 102 H*, Creatinine 4.52 H, Estim Creat Clear Calc 11.77, Est GFR (MDRD) Af Amer 13 L, Est GFR (MDRD) Non-Af 10 L, BUN/Creatinine Ratio 22.6 H , Glucose 91, Calcium 8.1 L 10/18/19 11:20: Hep Bs Antigen Non-Reactive, Hep Bs Antibody Non-Reactive Current Medications Acetaminophen (Tylenol) 650 mg PO Q6H PRN PRN PRN Reason: Pain Score 1-10/Temp > 100.7 F Last Admin: 10/17/19 20:12 Dose: 650 mg Documented by: Albuterol Sulfate (Ventolin Aerosols) 2.5 mg INHALATION Q2H PRN PRN PRN Reason: SOB/Wheezing Aspirin (Aspirin, Baby) 81 mg PO DAILY@0800 RUBIO Last Admin: 10/18/19 08:45 Dose: 81 mg Documented by: Ferrous Gluconate (Ferrous Gluconate) 324 mg PO TIDCM [facility] Last Admin: 10/18/19 12:44 Dose: Not Given Documented by: Glucagon () 1 mg IM .X1 PRN PRN Reason: Hypoglycemia Heparin Sodium (Porcine) (Heparin Na) 5,000 unit SC Q12 [facility] Last Admin: 10/18/19 10:34 Dose: Not Given Documented by: Dextrose (Dextrose 10%-Water) 250 mls @ 999 mls/hr IV .Q16M PRN; Protocol PRN Reason: HYPOGLYCEMIA Ibuprofen (Motrin) 400 mg PO Q4H PRN PRN PRN Reason: Pain Score 1-10/Temp > 100.7 F Metoprolol Succinate (Toprol Xl (Beta Azra)) 50 mg PO BID [facility] Last Admin: 10/18/19 10:34 Dose: Not Given Documented by: Nutritional Formula (Lactose Free) (Ensure Enlive) 120 ml PO 4X/DAY [facility] Last Admin: 10/18/19 10:34 Dose: Not Given Documented by: Ondansetron HCl (Zofran) 4 mg IV Q8H PRN PRN PRN Reason: NAUSEA/VOMITING Last Admin: 10/18/19 01:26 Dose: 4 mg Documented by: Oxycodone HCl (Oxyir) 5 mg PO Q6H PRN PRN PRN Reason: SEVERE PAIN Last Admin: 10/18/19 08:45 Dose: 5 mg Documented by: Prednisone () 2.5 mg PO BIDCM [facility] Last Admin: 10/18/19 08:45 Dose: 2.5 mg Documented by: Sodium Chloride () 10 - 40 ml IV UD PRN PRN Reason: SALINE FLUSH Medical Necessity - Tobacco Use Smoking Status: Never smoker Tobacco Use: Non-smoker Assessment/Plan All Active Problems Acute kidney injury superimposed on CKD (Acute) 1. 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 Recent renal ultrasound demonstrated nonspecific renal parenchymal disease, no hydronephrosis. Left forearm fistula in place. Hold nephrotoxic regimen. Trend BMP. Patient to undergo dialysis today. 2. Metabolic encephalopathy, secondary #1-treatment per above. PT/OT. Renally dose home sedating regimen including baclofen. 3. Elevated troponin-ongoing, suspect secondary to acute renal failure. EKG without ST-T changes. Recent work-up including echo August 2019 demonstrated EF 55 to 60%, mild to moderate mitral valve insufficiency, mild tricuspid valve insufficiency, pulmonary artery systolic pressure 54 mmHg. 4. Chronic heart failure with preserved ejection fraction-recent echo as noted above. Chest x-ray admission without acute process. Chronic lower extremity edema. DVT ultrasound negative. Benjamín wraps bilateral lower extremities. Lasix regimen on hold secondary to #1. 5. Hypertension-stable, continue metoprolol 50 mg twice daily. 6. AA Amyloidosis-with renal involvement, biopsy positive. 7. Rheumatoid arthritis-on etanercept, low dose prednisone. 8. Abnormal CT of chest-CT 09/07/19 demonstrated small bilateral pleural effusions, larger on the right side which could be loculated. Mediastinal lymphadenopathy. Bilateral lower lobe infiltrate versus atelectasis. Infec tious process previously ruled out. Patient is to follow-up with Dr. Linton/Cassia Cazares as previously recommended, as not yet established as outpatient. 9. Depression/anxiety-continue PRN Xanax regimen. Recommend addition of SSRI which can be discussed as outpatient. DVT prophylaxis-heparin subcu This patient was seen by COURTNEY Ingram under the supervision of Dr. Sterling.
--- NOTE | 2019-10-18 14:40 | PCM.CONS.R ---
Problem List (1) Acute kidney injury superimposed on CKD Status: Acute Consultation - Renal 10/18/19 PCP/ Referring MD: Requesting physician: Dr gardner Primary care physician: Jabier Arboleda DO Reason for Consultation:: KHUSHBOO - History of Present Illness History of Present Illness: The patient is a 64 year old F who was just discharged from the hospital 2 days ago. 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 Has history of CKD stage III with baseline creatinine around 1.8-2. Recently it seems amyloidosis got worse. Was admitted with fluid overload last admission, with diuresis creatinine increased to around 4. We cut back on Lasix and discharged home. Over the last 2 days she has clinically got worse. She is more drowsy, weak, has no energy. Appetite has been poor. Edema is about the same. Admission BUN is more than 100 and creatinine 4.5 - Allergies Allergies: Allergies No Known Allergies Allergy (Verified 10/17/19 14:54) - Current Medications Current Medications: Current Medications Acetaminophen (Tylenol) 650 mg PO Q6H PRN PRN PRN Reason: Pain Score 1-10/Temp > 100.7 F Last Admin: 10/17/19 20:12 Dose: 650 mg Documented by: Albuterol Sulfate (Ventolin Aerosols) 2.5 mg INHALATION Q2H PRN PRN PRN Reason: SOB/Wheezing Aspirin (Aspirin, Baby) 81 mg PO DAILY@0800 [facility] Last Admin: 10/18/19 08:45 Dose: 81 mg Documented by: Calcium Acetate (Phoslo Gel Cap) 667 mg PO TIDCM [facility] Ferrous Gluconate (Ferrous Gluconate) 324 mg PO TIDCM [facility] Last Admin: 10/18/19 12:44 Dose: Not Given Documented by: Glucagon () 1 mg IM .X1 PRN PRN Reason: Hypoglycemia Heparin Sodium (Porcine) (Heparin Na) 5,000 unit SC Q12 [facility] Last Admin: 10/18/19 10:34 Dose: Not Given Documented by: Dextrose (Dextrose 10%-Water) 250 mls @ 999 mls/hr IV .Q16M PRN; Protocol PRN Reason: HYPOGLYCEMIA Metoprolol Succinate (Toprol Xl (Beta Azra)) 50 mg PO BID [facility] Last Admin: 10/18/19 10:34 Dose: Not Given Documented by: Nutritional Formula (Lactose Free) (Ensure Enlive) 120 ml PO 4X/DAY [facility] Last Admin: 10/18/19 14:16 Dose: Not Given Documented by: Ondansetron HCl (Zofran) 4 mg IV Q8H PRN PRN PRN Reason: NAUSEA/VOMITING Last Admin: 10/18/19 01:26 Dose: 4 mg Documented by: Oxycodone HCl (Oxyir) 5 mg PO Q6H PRN PRN PRN Reason: SEVERE PAIN Last Admin: 10/18/19 08:45 Dose: 5 mg Documented by: Prednisone () 2.5 mg PO BIDCM [facility] Last Admin: 10/18/19 08:45 Dose: 2.5 mg Documented by: Sodium Chloride () 10 - 40 ml IV UD PRN PRN Reason: SALINE FLUSH - Past Medical History Past Medical History (Chronic Problems): Chronic Problems Elevated troponin (Chronic) Congestive heart failure (Chronic) Rheumatoid arthritis (Chronic) Amyloidosis (Chronic) CKD (chronic kidney disease) stage 4, GFR 15-29 ml/min (Chronic) Renal anasarca (Chronic) Hyponatremia (Chronic) - Past Surgical History Surgical History: - - Left forearm AV fistula - Social History Smoking Status: Never smoker Alcohol: None Drugs: None - Family History Maternal History Items: - - Denies known maternal medical history including cardiac history. Paternal History Items: - - Denies known paternal medical history including cardiac history. Review of Systems Constitutional: Reports: Anorexia, Malaise, Weakness. Denies: Chills, Fever, Weight Change HEENT: Denies: Head Aches, Sinus Congestion, Sinus Drainage Cardiovascular: Denies: Chest Pain, Palpitations Respiratory: Reports: Shortness of Breath, Shortness of breath at rest. Denies: Cough, Sputum production Gastrointestinal: Denies: Abdominal Pain, Nausea, Vomiting Genitourinary: Denies: Dysuria Musculoskeletal: Denies: Joint Pain, Joint Tenderness Skin: Denies: Rash, Wounds Neurological: Denies: Numbness, Tingling, Focal weakness Psychiatric: Denies: Anxiety, Depression, Homicidal Ideations, Suicidal Ideations Hematologic/ Lymphatic: Denies: Easy Bruising, Easy Bleeding Patient Problems: Active and Suspected Problems Acute kidney injury superimposed on CKD (Acute) - Physical Exam Vitals/I&O's: Vital Signs Temp Pulse Resp BP Pulse Ox 97.9 F 70 14 105/51 L 97 02/28/20 08:41 10/18/19 08:41 10/18/19 08:41 10/18/19 08:41 10/18/19 08:41 Oxygen Flow Rate (L/min) 2 Oxygen Delivery Method Room Air Weight: 86.8 kg Body Mass Index (BMI) 30.3 Finger Stick Blood Glucose 143 Intake and Output for Last 24 Hours 10/16/19 10/17/19 10/18/19 23:59 23:59 23:59 Intake Total Balance General: Lethargic HEENT: Atraumatic, PERRLA, EOMI, Normocephalic Neck: Supple, No JVD, Negative Carotid Bruits Lungs: Clear to auscultation, Normal air movement Cardiovascular: Regular rate, No murmurs Abdomen: Bowel Sounds Present, Soft, Non Tender Extremities: No edema, Capillary Refill Less than 3 Seconds Skin: No rashes, No breakdown Musculoskeletal: No Tenderness to Palpation of Joints or Extremities Neurological: Cranial nerves II-XII grossly intact Psych/Mental Status: Normal Affect, Appropriate Laboratory Results 10/17/19 15:35: WBC Cancelled, Corrected WBC Cancelled, RBC Cancelled, Hgb Cancelled, Hct Cancelled, MCV Cancelled, MCH Cancelled, MCHC Cancelled, RDW Std Deviation Cancelled, RDW Coeff of Mika Cancelled, Plt Count Cancelled, MPV Cancelled, Immature Gran % (Auto) Cancelled, Neut % (Auto) Cancelled, Lymph % (Auto) Cancelled, Henderson % (Auto) Cancelled, Eos % (Auto) Cancelled, Baso % (Auto) Cancelled, Absolute Neuts (auto) Cancelled, Absolute Lymphs (auto) Cancelled, Total Counted Cancelled, Neutrophils % (Manual) Cancelled, Band Neutrophils % Cancelled, Lymphocytes % (Manual) Cancelled, Monocytes % (Manual) Cancelled, Eosinophils % (Manual) Cancelled, Basophils % (Manual) Cancelled, Metamyelocytes % Cancelled, Myelocytes % Cancelled, Promyelocytes % Cancelled, Blast Cells % Cancelled, Plasma Cell % (Manual) Cancelled, Other Cells % Cancelled, Nucleated RBC % Cancelled, Nucleated RBCs/100 WBC Cancelled, Differential Comment Cancelled, Diff Path Review Cancelled, Hypersegmented Neuts Cancelled, Atypical Lymphocytes Cancelled, Reactive Lymphocytes Cancelled, Smudge Cells Cancelled, Toxic Granulation Cancelled, Toxic Vacuolation Cancelled, Dohle Bodies Cancelled, Marlin Rods Cancelled, Platelet Estimate Cancelled, Plt Morphology Comment Cancelled, RBC Morphology Cancelled, Polychromasia Cancelled, Hypochromasia Cancelled, Poikilocytosis Cancelled, Basophilic Stippling Cancelled, Anisocytosis Cancelled, Microcytosis Cancelled, Macrocytosis Cancelled, Spherocytes Cancelled, Sickle Cells Cancelled, Target Cells Cancelled, Tear Drop Cells Cancelled, Ovalocytes Cancelled, Stomatocytes Cancelled, Holm-Bergman Bodies Cancelled, Luther Cells Cancelled, Bite Cells Cancelled, Crenated Cell Cancelled, Acanthocytes (Spur) Cancelled, Rouleaux Cancelled, Schistocytes Cancelled 10/17/19 15:35: Sodium 131 L, Potassium 5.1, Chloride 96 L, Carbon Dioxide 22.0, Anion Gap 13, BUN 107 H*, Creatinine 4.56 H, Estim Creat Clear Calc 11.67, Est GFR (MDRD) Af Amer 13 L, Est GFR (MDRD) Non-Af 10 L, BUN/Creatinine Ratio 23.5 H, Glucose 89, Calcium 8.3 L, Troponin I 0.286 H 10/18/19 01:21: WBC 11.9 H, RBC 4.06 L, Hgb 10.2 L, Hct 32.6 L, MCV 80.3 L, MCH 25.1 L, MCHC 31.3 L, RDW Std Deviation 49.0 H, RDW Coeff of Mika 16.8 H, Plt Count 392, MPV 9.4, Immature Gran % (Auto) 0.600, Neut % (Auto) 75.9 H, Lymph % (Auto) 16.2 L, Henderson % (Auto) 4.9, Eos % (Auto) 2.1, Baso % (Auto) 0.3, Absolute Neuts (auto) 9.1 H, Absolute Lymphs (auto) 1.93, Nucleated RBC % 0 10/18/19 01:21: Troponin I 0.249 H 10/18/19 01:21: Phosphorus 9.6 H*, Magnesium 2.6 02/28/20 06:27: WBC 11.6 H, RBC 3.89 L, Hgb 9.7 L, Hct 31.3 L, MCV 80.5 L, MCH 24.9 L, MCHC 31.0 L, RDW Std Deviation 49.4 H, RDW Coeff of Mika 17.0 H, Plt Count 371, MPV 9.9, Immature Gran % (Auto) 0.300, Neut % (Auto) 79.5 H, Lymph % (Auto) 11.8 L, Henderson % (Auto) 6.7, Eos % (Auto) 1.4, Baso % (Auto) 0.3, Absolute Neuts (auto) 9.2 H, Absolute Lymphs (auto) 1.37, Nucleated RBC % 0 10/18/19 06:27: Sodium 131 L, Potassium 4.1, Chloride 98, Carbon Dioxide 20.0 L, Anion Gap 13, BUN 102 H*, Creatinine 4.52 H, Estim Creat Clear Calc 11.77, Est GFR (MDRD) Af Amer 13 L, Est GFR (MDRD) Non-Af 10 L, BUN/Creatinine Ratio 22.6 H, Glucose 91, Calcium 8.1 L 10/18/19 11:20: Hep Bs Antigen Non-Reactive, Hep Bs Antibody Non-Reactive Current Medications Acetaminophen (Tylenol) 650 mg PO Q6H PRN PRN PRN Reason: Pain Score 1-10/Temp > 100.7 F Last Admin: 10/17/19 20:12 Dose: 650 mg Documented by: Albuterol Sulfate (Ventolin Aerosols) 2.5 mg INHALATION Q2H PRN PRN PRN Reason: SOB/Wheezing Aspirin (Aspirin, Baby) 81 mg PO DAILY@0800 [facility] Last Admin: 10/18/19 08:45 Dose: 81 mg Documented by: Calcium Acetate (Phoslo Gel Cap) 667 mg PO TIDCM [facility] Ferrous Gluconate (Ferrous Gluconate) 324 mg PO TIDCM [facility] Last Admin: 10/18/19 12:44 Dose: Not Given Documented by: Glucagon () 1 mg IM .X1 PRN PRN Reason: Hypoglycemia Heparin Sodium (Porcine) (Heparin Na) 5,000 unit SC Q12 [facility] Last Admin: 10/18/19 10:34 Dose: Not Given Documented by: Dextrose (Dextrose 10%-Water) 250 mls @ 999 mls/hr IV .Q16M PRN; Protocol PRN Reason: HYPOGLYCEMIA Metoprolol Succinate (Toprol Xl (Beta Azra)) 50 mg PO BID [facility] Last Admin: 10/18/19 10:34 Dose: Not Given Documented by: Nutritional Formula (Lactose Free) (Ensure Enlive) 120 ml PO 4X/DAY [facility] Last Admin: 10/18/19 14:16 Dose: Not Given Documented by: Ondansetron HCl (Zofran) 4 mg IV Q8H PRN PRN PRN Reason: NAUSEA/VOMITING Last Admin: 10/18/19 01:26 Dose: 4 mg Documented by: Oxycodone HCl (Oxyir) 5 mg PO Q6H PRN PRN PRN Reason: SEVERE PAIN Last Admin: 10/18/19 08:45 Dose: 5 mg Documented by: [facility] () [facility] Last Admin: 10/18/19 08:45 Dose: 2.5 mg Documented by: Sodium Chloride () 10 - 40 ml IV UD PRN PRN Reason: SALINE FLUSH Assessment/Plan All Active Problems Acute kidney injury superimposed on CKD (Acute) Acute renal failure Chronic kidney disease stage III She has known history of biopsy-proven secondary amyloidosis related to rheumatoid arthritis. She was under immunosuppressive therapy for rheumatoid arthritis. Recently renal function and proteinuria have gotten worse. Baseline creatinine seems to be around 1.8-2 with an estimated GFR 35-40 as of last month Function is now worse with creatinine more than 4 and BUN more than 100. She has marked uremic symptoms including drowsiness, poor appetite, weakness, nausea. She has a left arm AV fistula which looks good on examination. We will go ahead and start dialysis. Discussed with patient and at bedside. Explained the need for dialysis due to worsening neurological symptoms. They are both agreeable. Discussed with staff. I also spoke to about placement in a dialysis unit. They were seeing a box truck washer in [place]. They would also like transportation to the dialysis unit. Will discuss with case management.
--- NOTE | 2019-10-18 16:03 | CASEMGMT ---
Readmission chart review: Pt initially admitted 10/11-10/15/19 for HF, elev trop, and KHUSHBOO. Pt then returned 10/17/19 stating that she has felt no different since discharge and readmitted 10/17/19 with acute on chronic renal failure and pt will now need OP dialysis set up. See previous dialysis set up note by this RN CM. Per Dr. Sterling, pt will be here through the weekend and this RN CM will complete OP dialysis set up on Monday once medically/financially clear. CM to follow for any further discharge planning/needs. SStlenny RN CM
[2019-10-18] MEDS: Calcium Acetate 667 MG Capsule PO (17:42)
[2019-10-18] MEDS: Acetaminophen 325 MG Tablet 650 MG PO (19:51)
[2019-10-18] MEDS: Heparin Injection (Vial) 5,000 UNIT/ML VIAL 5000 UNIT SC (21:46)
[2019-10-18] MEDS: Metoprolol(XL)Succ 50 MG Tablet PO (21:47)
[2019-10-19] VITALS (12 sets, daily range): BP systolic 109–132; BP diastolic 56–72; PULSE 70–84; RESP 14–18; TEMP 36.6–37.1; O2SAT 94–100
[2019-10-19] MEDS: oxyCODONE 5 MG Tablet PO ×4 (01:08→20:04)
[2019-10-19 06:01] LABS: Hematocrit 31.8 % (37-47); Mean Corp Hgb Conc 31.4 g/dL (32-36); Mean Corpuscular Hgb 24.8 pg (27.0-32.0); Mean Corpuscular Volume 78.9 fL (81-99); Mean Platelet Vol. 9.7 fl (6.2-12.0); Platelet Count 372 K/mm3 (150-450); RBC Distribution Width CV 16.8 % (11.6-14.6); RBC Distribution Width SD 47.8 fl (35.1-43.9); Red Blood Count 4.03 M/mm3 (4.2-5.4); White Blood Count 12.8 K/mm3 (4.4-11.0)
[2019-10-19 06:34] LABS: Anion Gap 11 (5-15); BUN 79 mg/dL (7-18); BUN/Creat Ratio 20.4 RATIO (10-20); Calcium,Total 8.3 mg/dL (8.5-10.1); Chloride 96 mmol/L (98-107); Creatinine, Serum 3.87 mg/dL (0.55-1.02); EST Glomerular Filtration Rate 12 mL/min (>60); Est Glom Filt Rate - Afr Amer 15 mL/min (>60); Estimated Creatinine Clearance 13.75 ml/min; Glucose 99 mg/dL (74-106); Sodium Level 130 mmol/L (136-145)
--- NOTE | 2019-10-19 10:30 | PCM.PN.REN ---
Patient Problems: Active and Suspected Problems Acute kidney injury superimposed on CKD (Acute) Subjective: Following for ESRD. Pt denies CP or SOB today. Edema is better. Less nauseated today. - Physical Exam Vitals/I&O's: Vital Signs Temp Pulse Resp BP Pulse Ox 98.3 F 76 14 117/62 100 10/19/19 09:41 10/19/19 09:41 10/19/19 09:41 10/19/19 09:41 10/19/19 09:41 Oxygen Flow Rate (L/min) 2 Oxygen Delivery Method Room Air Weight: 85.9 kg Body Mass Index (BMI) 30.3 Finger Stick Blood Glucose 143 Intake and Output for Last 24 Hours 10/17/19 10/18/19 10/19/19 23:59 23:59 23:59 Intake Total 2316.25 / 2316.25 100 / 100 Output Total 1000 / 1000 Balance 1316.25 / 1316.25 100 / 100 General: Alert, Oriented x3 HEENT: Atraumatic Oral: Moist Mucosa Neck: Supple Lungs: Clear to auscultation Cardiovascular: Normal S1, Normal S2, No murmurs Abdomen: Bowel Sounds Present, Soft, Non Tender Extremities: Edema - 2+ Laboratory Results 10/18/19 11:20: Hep Bs Antigen Non-Reactive, Hep Bs Antibody Non-Reactive 10/18/19 11:20: Hep B Core IgM Ab Pending 10/19/19 05:45: WBC 12.8 H, RBC 4.03 L, Hgb 10.0 L, Hct 31.8 L, MCV 78.9 L, MCH 24.8 L, MCHC 31.4 L, RDW Std Deviation 47.8 H, RDW Coeff of Mika 16.8 H, Plt Count 372, MPV 9.7 10/19/19 05:45: Sodium 130 L, Potassium 4.0, Chloride 96 L, Carbon Dioxide 23.0, Anion Gap 11, BUN 79 H, Creatinine 3.87 H, Estim Creat Clear Calc 13.75, Est GFR (MDRD) Af Amer 15 L, Est GFR (MDRD) Non-Af 12 L, BUN/Creatinine Ratio 20.4 H, Glucose 99, Calcium 8.3 L Current Medications Acetaminophen (Tylenol) 650 mg PO Q6H PRN PRN PRN Reason: Pain Score 1-10/Temp > 100.7 F Last Admin: 10/18/19 19:51 Dose: 650 mg Documented by: Albuterol Sulfate (Ventolin Aerosols) 2.5 mg INHALATION Q2H PRN PRN PRN Reason: SOB/Wheezing Aspirin (Aspirin, Baby) 81 mg PO DAILY@0800 [facility] Last Admin: 10/18/19 08:45 Dose: 81 mg Documented by: Calcium Acetate (Phoslo Gel Cap) 667 mg PO TIDCM [facility] Last Admin: 10/18/19 17:42 Dose: 667 mg Documented by: Ferrous Gluconate (Ferrous Gluconate) 324 mg PO TIDCM [facility] Last Admin: 10/18/19 17:41 Dose: 324 mg Documented by: Glucagon () 1 mg IM .X1 PRN PRN Reason: Hypoglycemia Heparin Sodium (Porcine) (Heparin Na) 5,000 unit SC Q12 [facility] Last Admin: 10/19/19 10:09 Dose: Not Given Documented by: Dextrose (Dextrose 10%-Water) 250 mls @ 999 mls/hr IV .Q16M PRN; Protocol PRN Reason: HYPOGLYCEMIA Metoprolol Succinate (Toprol Xl (Beta Azra)) 50 mg PO BID [facility] Last Admin: 10/18/19 21:47 Dose: 50 mg Documented by: Ondansetron HCl (Zofran) 4 mg IV Q8H PRN PRN PRN Reason: NAUSEA/VOMITING Last Admin: 10/18/19 01:26 Dose: 4 mg Documented by: Oxycodone HCl (Oxyir) 5 mg PO Q6H PRN PRN PRN Reason: SEVERE PAIN Last Admin: 10/19/19 07:22 Dose: 5 mg Documented by: [facility] () [facility] Last Admin: 10/18/19 17:42 Dose: 2.5 mg Documented by: Sodium Chloride () 10 - 40 ml IV UD PRN PRN Reason: SALINE FLUSH Medical Necessity - Tobacco Use Smoking Status: Never smoker Tobacco Use: Non-smoker Assessment/Plan All Active Problems Acute kidney injury superimposed on CKD (Acute) 1. 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 Started on HD yesterday. Second HD treatment today, and 3rd treatment with increasing time and blood flow on 10/21/19. Will need to make sure the pt has an outpt dialysis unit placement prior to discharge. Hopefully, the admission process to outpt dialysis will be completed by 10/21/19. 2. Anemia. Hgb is 10. Will start TAMMY with HD as outpt. Continue oral Fe. Can convert to IV Fe with HD as outpt. 3. CKD-mineral bone disorder. Phos is 9.6 and Ca is 8.3. CaxP product is 79 which is too high to continue calcium acetate. Will change phos binder to a non-calcium based one. 4. Hyponatremia. Asymptomatic. Hyponatremia is secondary to ESRD. Should stabilize/improve with HD. 5. HTN. BP is acceptable on metoprolol. 6. Encephalopathy. Improved. Continue dialysis.
[2019-10-19] MEDS: Ferrous Gluconate 324 MG Tablet PO ×3 (10:51→18:01)
[2019-10-19] MEDS: Aspirin 81 MG TAB.CHEW PO (10:51)
[2019-10-19] MEDS: Metoprolol(XL)Succ 50 MG Tablet PO ×2 (10:51→22:24)
[2019-10-19] MEDS: predniSONE 5 MG Tablet 2.5 MG PO ×2 (10:51→18:01)
[2019-10-19] MEDS: SEVELAMER CARBONATE 800 MG TABLET 1600 MG PO ×2 (12:32→18:01)
--- NOTE | 2019-10-19 13:55 | PN_ITS ---
Patient Problems: Active and Suspected Problems Acute kidney injury superimposed on CKD (Acute) Subjective: Patient seen and examined. More alert today. Reports she had increased fatigue following dialysis yesterday however this morning feels improved. To undergo second dialysis session today. - Physical Exam Vitals/I&O's: Vital Signs Temp Pulse Resp BP Pulse Ox 98.3 F 78 14 117/62 100 10/19/19 09:41 10/19/19 10:51 10/19/19 09:41 10/19/19 09:41 10/19/19 09:41 Oxygen Flow Rate (L/min) 2 Oxygen Delivery Method Room Air Weight: 189 lb 6.033 oz Body Mass Index (BMI) 30.3 Finger Stick Blood Glucose 143 Intake and Output for Last 24 Hours 10/17/19 10/18/19 10/19/19 23:59 23:59 23:59 Intake Total 2316.25 / 2316.25 650 / 650 Output Total 1000 / 1000 Balance 1316.25 / 1316.25 650 / 650 General: Alert, Oriented x3, Cooperative HEENT: Atraumatic, PERRLA, EOMI, Normocephalic Neck: Supple, No JVD, Negative Carotid Bruits Lungs: Clear to auscultation, Normal air movement Cardiovascular: Regular rate, Regular Rhythm, Normal S1, Normal S2, No murmurs Abdomen: Bowel Sounds Present, Soft, Non Tender, Non-Distended Extremities: No clubbing, No cyanosis, Edema - Bilateral lower extremities, - - Left forearm AV fistula Skin: No rashes, No breakdown, - - Chronic skin changes bilateral lower extremities Musculoskeletal: No Tenderness to Palpation of Joints or Extremities Neurological: Cranial nerves II-XII grossly intact, Neuro grossly intact Psych/Mental Status: Normal Affect, Appropriate Laboratory Results 10/18/19 11:20: Hep B Core IgM Ab Pending 10/19/19 05:45: WBC 12.8 H, RBC 4.03 L, Hgb 10.0 L, Hct 31.8 L, MCV 78.9 L, MCH 24.8 L, MCHC 31.4 L, RDW Std Deviation 47.8 H, RDW Coeff of Mika 16.8 H, Plt Count 372, MPV 9.7 10/19/19 05:45: Sodium 130 L, Potassium 4.0, Chloride 96 L, Carbon Dioxide 23.0, Anion Gap 11, BUN 79 H, Creatinine 3.87 H, Estim Creat Clear Calc 13.75, Est GFR (MDRD) Af Amer 15 L, Est GFR (MDRD) Non-Af 12 L, BUN/Creatinine Ratio 20.4 H, Glucose 99, Calcium 8.3 L Current Medications Acetaminophen (Tylenol) 650 mg PO Q6H PRN PRN PRN Reason: Pain Score 1-10/Temp > 100.7 F Last Admin: 10/18/19 19:51 Dose: 650 mg Documented by: Albuterol Sulfate (Ventolin Aerosols) 2.5 mg INHALATION Q2H PRN PRN PRN Reason: SOB/Wheezing Aspirin (Aspirin, Baby) 81 mg PO DAILY@0800 [facility] Last Admin: 10/19/19 10:51 Dose: 81 mg Documented by: Ferrous Gluconate (Ferrous Gluconate) 324 mg PO TIDCM [facility] Last Admin: 10/19/19 12:32 Dose: 324 mg Documented by: Glucagon () 1 mg IM .X1 PRN PRN Reason: Hypoglycemia Heparin Sodium (Porcine) (Heparin Na) 5,000 unit SC Q12 [facility] Last Admin: 10/19/19 10:09 Dose: Not Given Documented by: Dextrose (Dextrose 10%-Water) 250 mls @ 999 mls/hr IV .Q16M PRN; Protocol PRN Reason: HYPOGLYCEMIA Metoprolol Succinate (Toprol Xl (Beta Azra)) 50 mg PO BID [facility] Last Admin: 10/19/19 10:51 Dose: 50 mg Documented by: Ondansetron HCl (Zofran) 4 mg IV Q8H PRN PRN PRN Reason: NAUSEA/VOMITING Last Admin: 10/18/19 01:26 Dose: 4 mg Documented by: Oxycodone HCl (Oxyir) 5 mg PO Q6H PRN PRN PRN Reason: SEVERE PAIN Last Admin: 10/19/19 13:37 Dose: 5 mg Documented [facility]: [facility] Last Admin: 10/19/19 10:51 Dose: 2.5 mg Documented by: Sevelamer Carbonate (Renvela) 1,600 mg PO TIDCM [facility] Last Admin: 10/19/19 12:32 Dose: 1,600 mg Documented by: Sodium Chloride () 10 - 40 ml IV UD PRN PRN Reason: SALINE FLUSH Medical Necessity - Tobacco Use Smoking Status: Never smoker Tobacco Use: Non-smoker Assessment/Plan All Active Problems Acute kidney injury superimposed on CKD (Acute) 1. 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 Recent renal ultrasound demonstrated nonspecific renal parenchymal disease, no hydronephrosis. Left forearm fistula in place. Hold nephrotoxic regimen. Trend BMP. Patient to undergo second leydi lysis session today. Case management following for ongoing outpatient dialysis set up. 2. Metabolic encephalopathy, secondary #1-treatment per above. PT/OT. Renally dose home sedating regimen including baclofen. 3. Elevated troponin-ongoing, suspect secondary to acute renal failure. EKG without ST-T changes. Recent work-up including echo August 2019 demonstrated EF 55 to 60%, mild to moderate mitral valve insufficiency, mild tricuspid valve insufficiency, pulmonary artery systolic pressure 54 mmHg. 4. Chronic heart failure with preserved ejection fraction-recent echo as noted above. Chest x-ray admission without acute process. Chronic lower extremity edema. DVT ultrasound negative. Benjamín wraps bilateral lower extremities. Lasix regimen on hold secondary to #1. 5. Hypertension-stable, continue metoprolol 50 mg twice daily. 6. AA Amyloidosis-with renal involvement, biopsy positive. 7. Rheumatoid arthritis-on etanercept, low dose prednisone. 8. Abnormal CT of chest-CT 09/07/19 demonstrated small bilateral pleural effusions, larger on the right side which could be loculated. Mediastinal lymphadenopathy. Bilateral lower lobe infiltrate versus atelectasis. Infectious process previously ruled out. Patient is to follow-up with Dr. Linton/Cassia Cazares as previously recommended, as not yet established as outpatient. 9. Depression/anxiety-continue PRN Xanax regimen. Recommend addition of SSRI which can be discussed as outpatient. DVT prophylaxis-heparin subcu This patient was seen by COURTNEY Ingram under the supervision of Dr. Sterling.
--- NOTE | 2019-10-19 18:08 | DIALYSIS ---
Pt tolerated 2.5hr HD tx well. Net UF -2000ml. See flow record for tx data.
[2019-10-19] MEDS: ALPRAZolam 0.5 MG Tablet 1 MG PO (22:24)
[2019-10-19] MEDS: Heparin Injection (Vial) 5,000 UNIT/ML VIAL 5000 UNIT SC (22:27)
[2019-10-20] VITALS (11 sets, daily range): BP systolic 103–121; BP diastolic 57–67; PULSE 68–81; RESP 14–18; TEMP 36.6–36.7; O2SAT 96–100
[2019-10-20] MEDS: oxyCODONE 5 MG Tablet PO ×3 (03:44→19:05)
[2019-10-20 07:30] LABS: Hematocrit 31.4 % (37-47); Mean Corp Hgb Conc 31.8 g/dL (32-36); Mean Corpuscular Hgb 25.2 pg (27.0-32.0); Mean Corpuscular Volume 79.1 fL (81-99); Mean Platelet Vol. 10.2 fl (6.2-12.0); Platelet Count 359 K/mm3 (150-450); RBC Distribution Width CV 16.6 % (11.6-14.6); RBC Distribution Width SD 47.2 fl (35.1-43.9); Red Blood Count 3.97 M/mm3 (4.2-5.4); White Blood Count 11.7 K/mm3 (4.4-11.0)
[2019-10-20 07:58] LABS: Albumin, Serum 1.5 g/dL (3.2-5.0); BUN 51 mg/dL (7-18); BUN/Creat Ratio 15.7 RATIO (10-20); Calcium,Total 8.1 mg/dL (8.5-10.1); Chloride 96 mmol/L (98-107); Creatinine, Serum 3.24 mg/dL (0.55-1.02); EST Glomerular Filtration Rate 15 mL/min (>60); Est Glom Filt Rate - Afr Amer 19 mL/min (>60); Estimated Creatinine Clearance 16.42 ml/min; Glucose 89 mg/dL (74-106); Phosphorus 5.6 mg/dL (2.5-4.9); Potassium 3.8 mmol/L (3.5-5.1); Sodium Level 131 mmol/L (136-145)
[2019-10-20] MEDS: predniSONE 5 MG Tablet 2.5 MG PO ×2 (09:01→17:02)
[2019-10-20] MEDS: SEVELAMER CARBONATE 800 MG TABLET 1600 MG PO ×3 (09:01→17:02)
[2019-10-20] MEDS: Aspirin 81 MG TAB.CHEW PO (09:01)
[2019-10-20] MEDS: Ferrous Gluconate 324 MG Tablet PO ×3 (09:01→17:02)
[2019-10-20] MEDS: Heparin Injection (Vial) 5,000 UNIT/ML VIAL 5000 UNIT SC ×2 (09:02→22:05)
[2019-10-20] MEDS: Metoprolol(XL)Succ 50 MG Tablet PO ×2 (09:02→22:05)
--- NOTE | 2019-10-20 11:52 | PN_ITS ---
Patient Problems: Active and Suspected Problems Acute kidney injury superimposed on CKD (Acute) Subjective: Patient seen and examined. Feeling overall well this morning. Reports improvement in tiredness and fatigue. Tolerated dialysis well yesterday. - Physical Exam Vitals/I&O's: Vital Signs Temp Pulse Resp BP Pulse Ox 98.1 F 77 14 116/67 100 10/20/19 09:15 10/20/19 09:15 10/20/19 09:15 10/20/19 09:15 10/20/19 09:15 Oxygen Flow Rate (L/min) 2 Oxygen Delivery Method Room Air Weight: 189 lb 2.506 oz Body Mass Index (BMI) 30.3 Finger Stick Blood Glucose 143 Intake and Output for Last 24 Hours 10/18/19 10/19/19 10/20/19 23:59 23:59 23:59 Intake Total 2316.25 / 2316.25 1200 / 1200 830 / 830 Output Total 1000 / 1000 1999 / 1999 Balance 1316.25 / 1316.25 -800 / -800 830 / 830 General: Alert, Oriented x3, Cooperative HEENT: Atraumatic, PERRLA, EOMI, Normocephalic Neck: Supple, No JVD, Negative Carotid Bruits Lungs: Clear to auscultation, Normal air movement Cardiovascular: Regular rate, Regular Rhythm, Normal S1, Normal S2, No murmurs Abdomen: Bowel Sounds Present, Soft, Non Tender, Non-Distended Extremities: No clubbing, No cyanosis, No edema, Capillary Refill Less than 3 Seconds, - - Left forearm AV fistula Skin: No rashes, No breakdown, - - Chronic skin changes bilateral lower extremities Musculoskeletal: No Tenderness to Palpation of Joints or Extremities Neurological: Cranial nerves II-XII grossly intact, Neuro grossly intact Psych/Mental Status: Normal Affect, Appropriate Laboratory Results 10/20/19 06:18: Sodium 131 L, Potassium 3.8, Chloride 96 L, Carbon Dioxide 25.0, BUN 51 H, Creatinine 3.24 H, Estim Creat Clear Calc 16.42, Est GFR (MDRD) Af Amer 19 L, Est GFR (MDRD) Non-Af 15 L, BUN/Creatinine Ratio 15.7, Glucose 89, C alcium 8.1 L, Phosphorus 5.6 H, Albumin 1.5 L 10/20/19 06:18: WBC 11.7 H, RBC 3.97 L, Hgb 10.0 L, Hct 31.4 L, MCV 79.1 L, MCH 25.2 L, MCHC 31.8 L, RDW Std Deviation 47.2 H, RDW Coeff of Mika 16.6 H, Plt Count 359, MPV 10.2 Current Medications Acetaminophen (Tylenol) 650 mg PO Q6H PRN PRN PRN Reason: Pain Score 1-10/Temp > 100.7 F Last Admin: 10/18/19 19:51 Dose: 650 mg Documented by: Albuterol Sulfate (Ventolin Aerosols) 2.5 mg INHALATION Q2H PRN PRN PRN Reason: SOB/Wheezing Aspirin (Aspirin, Baby) 81 mg PO DAILY@0800 [facility] Last Admin: 10/20/19 09:01 Dose: 81 mg Documented by: Ferrous Gluconate (Ferrous Gluconate) 324 mg PO TIDCM [facility] Last Admin: 10/20/19 11:37 Dose: 324 mg Documented by: Glucagon () 1 mg IM .X1 PRN PRN Reason: Hypoglycemia Heparin Sodium (Porcine) (Heparin Na) 5,000 unit SC Q12 [facility] Last Admin: 10/20/19 09:02 Dose: 5,000 unit Documented by: Dextrose (Dextrose 10%-Water) 250 mls @ 999 mls/hr IV .Q16M PRN; Protocol PRN Reason: HYPOGLYCEMIA Metoprolol Succinate (Toprol Xl (Beta Azra)) 50 mg PO BID [facility] Last Admin: 10/20/19 09:02 Dose: 50 mg Documented by: Ondansetron HCl (Zofran) 4 mg IV Q8H PRN PRN PRN Reason: NAUSEA/VOMITING Last Admin: 10/18/19 01:26 Dose: 4 mg Documented by: Oxycodone HCl (Oxyir) 5 mg PO Q6H PRN PRN PRN Reason: SEVERE PAIN Last Admin: 10/20/19 11:36 Dose: 5 mg Documented by: [facility] () [facility] Last Admin: 10/20/19 09:01 Dose: 2.5 mg Documented by: Sevelamer Carbonate (Renvela) 1,600 mg PO TIDCM [facility] Last Admin: 10/20/19 11:36 Dose: 1,600 mg Documented by: Sodium Chloride () 10 - 40 ml IV UD PRN PRN Reason: SALINE FLUSH Medical Necessity - Tobacco Use Smoking Status: Never smoker Tobacco Use: Non-smoker Assessment/Plan All Active Problems Acute kidney injury superimposed on CKD (Acute) 1. 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 Recent renal ultrasound demonstrated nonspec ific renal parenchymal disease, no hydronephrosis. Left forearm fistula in place. Hold nephrotoxic regimen. Trend BMP. Patient underwent dialysis x2. Case management following for ongoing outpatient dialysis set up. Plan for additional dialysis treatment tomorrow. 2. Metabolic encephalopathy, secondary #1-treatment per above. PT/OT. Renally dose home sedating regimen including baclofen. 3. Elevated troponin-ongoing, suspect secondary to acute renal failure. EKG without ST-T changes. Recent work-up including echo August 2019 demonstrated EF 55 to 60%, mild to moderate mitral valve insufficiency, mild tricuspid valve insufficiency, pulmonary artery systolic pressure 54 mmHg. 4. Chronic heart failure with preserved ejection fraction-recent echo as noted above. Chest x-ray admission without acute process. Chronic lower extremity edema. DVT ultrasound negative. Benjamín wraps bilateral lower extremities. Lasix regimen on hold secondary to #1. 5. Hypertension-stable, continue metoprolol 50 mg twice daily. 6. AA Amyloidosis-with renal involvement, biopsy positive. 7. Rheumatoid arthritis-on etanercept, low dose prednisone. 8. Abnormal CT of chest-CT 09/07/19 demonstrated small bilateral pleural effusions, larger on the right side which could be loculated. Mediastinal lymphadenopathy. Bilateral lower lobe infiltrate versus atelectasis. Infectious process previously ruled out. Patient is to follow-up with Dr. Linton/Cassia Cazares as previously recommended, as not yet established as outpatient. 9. Depression/anxiety-continue PRN Xanax regimen. Recommend addition of SSRI which can be discussed as outpatient. DVT prophylaxis-heparin subcu This patient was seen by COURTNEY Ingram under the supervision of Dr. Sterling.
[2019-10-21] VITALS (15 sets, daily range): BP systolic 115–132; BP diastolic 54–71; PULSE 71–91; RESP 16–18; TEMP 36.3–37; O2SAT 94–100
[2019-10-21] MEDS: oxyCODONE 5 MG Tablet PO ×4 (02:50→21:37)
[2019-10-21 06:14] LABS: Hematocrit 29.3 % (37-47); Hemoglobin 9.2 g/dL (12.0-15.0); Mean Corp Hgb Conc 31.4 g/dL (32-36); Mean Corpuscular Hgb 25.1 pg (27.0-32.0); Mean Corpuscular Volume 80.1 fL (81-99); Mean Platelet Vol. 10.2 fl (6.2-12.0); Platelet Count 321 K/mm3 (150-450); RBC Distribution Width CV 16.7 % (11.6-14.6); RBC Distribution Width SD 48.8 fl (35.1-43.9); Red Blood Count 3.66 M/mm3 (4.2-5.4); White Blood Count 10.6 K/mm3 (4.4-11.0)
[2019-10-21 06:34] LABS: Anion Gap 11 (5-15); BUN 62 mg/dL (7-18); BUN/Creat Ratio 16.5 RATIO (10-20); Calcium,Total 8.1 mg/dL (8.5-10.1); Chloride 97 mmol/L (98-107); Creatinine, Serum 3.75 mg/dL (0.55-1.02); EST Glomerular Filtration Rate 13 mL/min (>60); Est Glom Filt Rate - Afr Amer 16 mL/min (>60); Estimated Creatinine Clearance 14.19 ml/min; Glucose 90 mg/dL (74-106); Potassium 3.9 mmol/L (3.5-5.1); Sodium Level 130 mmol/L (136-145)
[2019-10-21] MEDS: predniSONE 5 MG Tablet 2.5 MG PO ×2 (07:56→17:56)
[2019-10-21] MEDS: Aspirin 81 MG TAB.CHEW PO (07:56)
[2019-10-21] MEDS: SEVELAMER CARBONATE 800 MG TABLET 1600 MG PO ×3 (07:57→17:55)
[2019-10-21] MEDS: Metoprolol(XL)Succ 50 MG Tablet PO ×2 (07:58→21:38)
[2019-10-21] MEDS: Ferrous Gluconate 324 MG Tablet PO ×2 (09:27→17:56)
--- NOTE | 2019-10-21 09:54 | CASEMGMT ---
Addendum entered by Tati Blanchard 10/21/19 13:39: This RN CM received call from Octavio at [facility] financial clearance stating that they can't clear pt financially at this time d/t pt being self pay with [facility]. Octavio provided with contact number for [facility], Lino Siegel, at this time and per Octavio, they have dealt with Lino in the past with other pt's. She states she will work on this and get back with this RN CM. Call from Rui at [facility] and he states that they do have a TTS 0630 chair time available now. This RN CM to room with Rui on the phone at this time and pt/ state that the TTS 0630 is a better chair time for them at this time. Rui aware and states he will place pt in that time. Rui is aware of call from financial and states he will keep an eye on the clearance and notify this RN CM. Pt/ updated on all, voice understanding. Pt awaiting discharge pending OP dialysis financial clearance. [facility] RN CM Addendum entered by Tati Blanchard 10/21/19 11:53: Per Kinga [employer], pt's states that the dialysis will be covered by the kidney fund and that they have better contract with [facility] and that they would like to switch to [facility] now at this time. This RN CM to room and pt/ states that they spoke with kidney [employer] again and they will work with [facility] for now and pt can always switch in the future since it has been already set up with [facility]. This RN CM then informed them of the time given by dialysis which is MWF at 1700 and is 'not too keen' on it being so late and states they are still trying to figure out transportation. provided with a list of [facility] transportation contacts at this time. Calls to Kim Mendez, Sheeba Alvarez, and Robles Lamar to check on time availability and transportation resources. Sheeba Alvarez did not answer and the other two state no resources for transportation and that pt/ will have to set up. This RN CM is [facility]. Kim Mendez states they 'are full but may have a 1445 chair time available.' Pt/ updated on all at this time, voice understanding. provides this RN CM with Lino Siegel's number from the kidney fund for future reference. states that the dialysis is paid through this fund. now states that the 1700 time at [facility] might not be too bad but still awaiting call back from [facility]. This RN CM to follow. Sheila RN RONIT Original Note: New hep B result faxed to [facility] and [facility] at this time. Call to [facility] to check on financial/medical clearance at this time and per Rui, it is still pending at this time. He also states that they only chair time he has right now is MWF at 1700. He states he will look further at pending clearance and will notify this RN CM. This RN CM to room to speak with pt/ regarding transportation concerns and chair time but is not here yet at this time. Sheila RIZVI CM
--- NOTE | 2019-10-21 11:45 | PCM.DC ---
- Discharge Diagnoses Current Active Problems: Current Active and Chronic Problems Acute kidney injury superimposed on CKD (Acute) Elevated troponin (Chronic) Renal anasarca (Chronic) You will use the following diet at home:: Renal (restricted protein/sodium) Discharge Activity: Return to Normal Activity Call your doctor if you observe: Shortness of breath, Dizziness, Fainting spells, Chest pain Allergies/Adverse Reactions: Allergies No Known Allergies Allergy (Verified 10/17/19 14:54) Medications to take at Discharge Ferrous Gluconate [Iron] 1 tab PO TID 01/16/18 Prednisone 2.5 mg PO BID 01/16/18 Oxycodone HCl 5 mg PO Q6H PRN PRN 09/06/19 Metoprolol(XL)Succ [Toprol Xl (Beta Azra)] 50 mg PO BID #60 tab 09/10/19 ALPRAZolam [Xanax] 0.5 mg PO QHS PRN #0 10/21/19 Aspirin [Aspirin, Baby] 81 mg PO DAILY@0800 #30 tab.chew 10/21/19 Sevelamer Carbonate 1,600 mg PO TIDCM #180 tab 10/21/19 The following prescriptions were given: Aspirin [Aspirin, Baby] 81 mg PO DAILY@0800 #30 tab.chew Transmission Status: Pending to [facility] Sevelamer Carbonate 1,600 mg PO TIDCM #180 tab Transmission Status: [facility] Primary Care Physician: Jabier Arboleda DO [Primary Care Provider] - Please follow up with your Primary Care Physician in: 1 Week Test Results: Test results from this visit will be discussed in further detail at your follow-up appointment, if applicable. Please Follow Up With: Yulisa Sterling MD When: Continue dialysis as scheduled Proposed Discharge Date: 10/21/19
--- NOTE | 2019-10-21 11:52 | PN.RENAL_ITS ---
Patient Problems: Active and Suspected Problems Acute kidney injury superimposed on CKD (Acute) Subjective: Seen on dialysis today. No new complaints. - Physical Exam Vitals/I&O's: Vital Signs Temp Pulse Resp BP Pulse Ox 97.8 F 71 16 125/58 H 100 10/21/19 08:45 10/21/19 09:40 10/21/19 08:45 10/21/19 08:45 10/21/19 08:45 Oxygen Flow Rate (L/min) 2 Oxygen Delivery Method Room Air Weight: 85.2 kg Body Mass Index (BMI) 30.3 Finger Stick Blood Glucose 143 Intake and Output for Last 24 Hours 10/19/19 10/20/19 10/21/19 23:59 23:59 23:59 Intake Total 1200 / 1200 1230 / 1230 460 / 460 Output Total 1999 / 1999 Balance -800 / -800 1230 / 1230 460 / 460 General: Alert, Oriented x3, Cooperative HEENT: Atraumatic, PERRLA, EOMI, Normocephalic Neck: Supple, No JVD, Negative Carotid Bruits Lungs: Clear to auscultation, Normal air movement Cardiovascular: Regular rate, No murmurs Abdomen: Bowel Sounds Present, Soft, Non Tender Extremities: No edema, Capillary Refill Less than 3 Seconds Skin: No rashes, No breakdown Musculoskeletal: No Tenderness to Palpation of Joints or Extremities Neurological: Cranial nerves II-XII grossly intact Psych/Mental Status: Normal Affect, Appropriate Laboratory Results 10/21/19 05:12: WBC 10.6, RBC 3.66 L, Hgb 9.2 L, Hct 29.3 L, MCV 80.1 L, MCH 25.1 L, MCHC 31.4 L, RDW Std Deviation 48.8 H, RDW Coeff of Mika 16.7 H, Plt Count 321, MPV 10.2 10/21/19 05:12: Sodium 130 L, Potassium 3.9, Chloride 97 L, Carbon Dioxide 22.0, Anion Gap 11, BUN 62 H, Creatinine 3.75 H, Estim Creat Clear Calc 14.19, Est GFR (MDRD) Af Amer 16 L, Est GFR (MDRD) Non-Af 13 L, BUN/Creatinine Ratio 16.5, Glucose 90, Calcium 8.1 L Current Medications Acetaminophen (Tylenol) 650 mg PO Q6H PRN PRN PRN Reason: Pain Score 1-10/Temp > 100.7 F Last Admin: 10/18/19 19:51 Dose: 650 mg Documented by: Albuterol Sulfate (Ventolin Aerosols) 2.5 mg INHALATION Q2H PRN PRN PRN Reason: SOB/Wheezing Alprazolam (Xanax) 0.5 mg PO QHS PRN PRN PRN Reason: ANXIETY Aspirin (Aspirin, Baby) 81 mg PO DAILY@0800 [facility] Last Admin: 10/21/19 07:56 Dose: 81 mg Documented by: Ferrous Gluconate (Ferrous Gluconate) 324 mg PO TIDCM [facility] Last Admin: 10/21/19 09:27 Dose: 324 mg Documented by: Glucagon () 1 mg IM .X1 PRN PRN Reason: Hypoglycemia Heparin Sodium (Porcine) (Heparin Na) 5,000 unit SC Q12 [facility] Last Admin: 10/20/19 22:05 Dose: 5,000 unit Documented by: Dextrose (Dextrose 10%-Water) 250 mls @ 999 mls/hr IV .Q16M PRN; Protocol PRN Reason: HYPOGLYCEMIA Metoprolol Succinate (Toprol Xl (Beta Azra)) 50 mg PO BID [facility] Last Admin: 10/21/19 07:58 Dose: 50 mg Documented by: Ondansetron HCl (Zofran) 4 mg IV Q8H PRN PRN PRN Reason: NAUSEA/VOMITING Last Admin: 10/18/19 01:26 Dose: 4 mg Documented by: Oxycodone HCl (Oxyir) 5 mg PO Q6H PRN PRN PRN Reason: SEVERE PAIN Last Admin: 10/21/19 09:27 Dose: 5 mg Documented by: [facility] () [facility] Last Admin: 10/21/19 07:56 Dose: 2.5 mg Documented by: Sevelamer Carbonate (Renvela) 1,600 mg PO TIDCM [facility] Last Admin: 10/21/19 07:57 Dose: 1,600 mg Documented by: Sodium Chloride () 10 - 40 ml IV UD PRN PRN Reason: SALINE FLUSH Medical Necessity - Tobacco Use Smoking Status: Never smoker Tobacco Use: Non-smoker Assessment/Plan All Active Problems Acute kidney injury superimposed on CKD (Acute) Acute renal failure Chronic kidney disease stage III She has known history of biopsy-proven secondary amyloidosis related to rheumatoid arthritis. She was under immunosuppressive therapy for rheumatoid arthritis. Recently renal function and proteinuria have gotten worse. Baseline creatinine seems to be around 1.8-2 with an estimated GFR 35-40 as of last month Function is now worse with creatinine more than 4 and BUN more than 100. this is her third dialysis treatment Clinically better See orders and flow sheets She will need placement in a dialysis unit. There is some insurance related issues with this. Discussed with spring enc[facility]. If patient goes to either [place] or [place], we will follow her If she goes to [place] she can follow with her primary youth associate
[2019-10-21 12:33] LABS: Hepatitis B Core AB IgM Negative (Negative)
--- NOTE | 2019-10-21 14:31 | DIALYSIS ---
HD x3 hours completed at 1250, patient's 4th treatment, tolerated well, UF 2400mL, accessed via LFA AVF using 17G needles, EMLA cream applied 45 mins prior to placing needles, needles pulled post tx and stasis achieved without issue
--- NOTE | 2019-10-21 14:33 | DS.PCM_ITS ---
Discharge Date and Diagnosis Date of Admission: 10/17/19 Date of Discharge: 10/21/19 - Primary Discharge Diagnosis Active and Suspected Problems 1. 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 Metabolic encephalopathy, secondary #1 3. Elevated troponin-ongoing, suspect secondary to acute renal failure. 4. Chronic heart failure with preserved ejection fraction 5. Hypertension 6. AA Amyloidosis 7. Rheumatoid arthritis 8. Depression/anxiety - Secondary Discharge Diagnosis Chronic Problems Elevated troponin (Chronic) Congestive heart failure (Chronic) Rheumatoid arthritis (Chronic) Amyloidosis (Chronic) CKD (chronic kidney disease) stage 4, GFR 15-29 ml/min (Chronic) Renal anasarca (Chronic) Hyponatremia (Chronic) Hospital Course and Treatment Imaging Results: Diagnostic Data Chest X-Ray 10/17/19 16:00 IMPRESSION: Very slight residual congestive failure markedly improved. Electronically Signed: Jim Frye MD at 16:27 EST , Service support , Dr. Sterling- Nephrology Operations: None Procedures: None Summary of Care Provided: The patient is a 64 year old F admitted 10/17/2019 due to weakness and lethargy. 1. 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 Recent renal ultrasound demonstrated nonspecific renal parenchymal disease, no hydronephrosis. Left forearm fistula in place. Hold nephrotoxic regimen. Patient underwent dialysis x3. Case management following for ongoing outpatient dialysis set up. Continue outpatient follow-up with nephrology/dialysis as scheduled. 2. Metabolic encephalopathy, secondary #1-improved following treatment per above. Discontinued home PRN baclofen regimen. Also reduced home PRN Xanax regimen 2.5 mg nightly as needed only. 3. Elevated troponin-ongoing, suspect secondary to acute renal failure. EKG without ST-T changes. Recent work-up including echo August 2019 demonstrated EF 55 to 60%, mild to moderate mitral valve insufficiency, mild tricuspid valve insufficiency, pulmonary artery systolic pressure 54 mmHg. Continue aspirin, beta-azra. 4. Chronic heart failure with preserved ejection fraction-recent echo as noted above. Chest x-ray admission without acute process. Chronic lower extremity edema. DVT ultrasound negative. Benjamín wraps bilateral lower extremities. Lasix discontinued. 5. Hypertension-stable, continue metoprolol 50 mg twice daily. 6. AA Amyloidosis-with renal involvement, biopsy positive. 7. Rheumatoid arthritis-on etanercept, low dose prednisone. 8. Abnormal CT of chest-CT 09/07/19 demonstrated small bilateral pleural effusions, larger on the right side which could be loculated. Mediastinal lymphadenopathy. Bilateral lower lobe infiltrate versus atelectasis. Infectious process previously ruled out. Patient is to follow-up with Dr. Linton/Cassia Cazares as previously recommended, as not yet established as outpatient. 9. Depression/anxiety-continue PRN Xanax regimen. Recommend addition of SSRI which can be discussed as outpatient. General: Alert, Oriented x3, Cooperative HEENT: Atraumatic, PERRLA, EOMI, Normocephalic Neck: Supple, No JVD, Negative Carotid Bruits Lungs: Clear to auscultation, Normal air movement Cardiovascular: Regular rate, Regular Rhythm, Normal S1, Normal S2, No murmurs Abdomen: Bowel Sounds Present, Soft, Non Tender, Non-Distended Extremities: No clubbing, No cyanosis, No edema, Capillary Refill Less than 3 Seconds, - - Left forearm AV fistula Skin: No rashes, No breakdown, - - Chronic skin changes bilateral lower extremities Musculoskeletal: No Tenderness to Palpation of Joints or Extremities Neurological: Cranial nerves II-XII grossly intact, Neuro grossly intact Psych/Mental Status: Normal Affect, Appropriate Patient seen and examined prior to discharge. Physical assessment as noted above. Patient is stable for discharge with follow up recommendations as noted above. This patient was seen by COURTNEY Ingram under the supervision of Dr. Sterling. - Physical Exam Vitals/I&O's: Vital Signs Temp Pulse Resp BP Pulse Ox 97.3 F L 81 16 118/69 100 10/21/19 12:55 10/21/19 12:55 10/21/19 12:55 10/21/19 12:55 10/21/19 08:45 Oxygen Flow Rate (L/min) 2 Oxygen Delivery Method Room Air Weight: 187 lb 13.341 oz Body Mass Index (BMI) 30.3 Finger Stick Blood Glucose 143 Intake and Output for Last 24 Hours 10/19/19 10/20/19 10/21/19 23:59 23:59 23:59 Intake Total 1200 / 1200 1230 / 1230 460 / 460 Output Total 1999 2400 / 2400 Balance -800 / -800 1230 / 1230 -1940 / -1940 Laboratory Results 10/18/19 11:20: Hep B Core IgM Ab Negative 10/21/19 05:12: WBC 10.6, RBC 3.66 L, Hgb 9.2 L, Hct 29.3 L, MCV 80.1 L, MCH 25.1 L, MCHC 31.4 L, RDW Std Deviation 48.8 H, RDW Coeff of Mika 16.7 H, Plt Count 321, MPV 10.2 10/21/19 05:12: Sodium 130 L, Potassium 3.9, Chloride 97 L, Carbon Dioxide 22.0, Anion Gap 11, BUN 62 H, Creatinine 3.75 H, Estim Creat Clear Calc 14.19, Est GFR (MDRD) Af Amer 16 L, Est GFR (MDRD) Non-Af 13 L, BUN/Creatinine Ratio 16.5, Glucose 90, Calcium 8.1 L Current Medications Acetaminophen (Tylenol) 650 mg PO Q6H PRN PRN PRN Reason: Pain Score 1-10/Temp > 100.7 F Last Admin: 10/18/19 19:51 Dose: 650 mg Documented by: Albuterol Sulfate (Ventolin Aerosols) 2.5 mg INHALATION Q2H PRN PRN PRN Reason: SOB/Wheezing Alprazolam (Xanax) 0.5 mg PO QHS PRN PRN PRN Reason: ANXIETY Aspirin (Aspirin, Baby) 81 mg PO DAILY@0800 [facility] Last Admin: 10/21/19 07:56 Dose: 81 mg Documented by: Ferrous Gluconate (Ferrous Gluconate) 324 mg PO TIDCM [facility] Last Admin: 10/21/19 13:20 Dose: Not Given Documented by: Glucagon () 1 mg IM .X1 PRN PRN Reason: Hypoglycemia Heparin Sodium (Porcine) (Heparin Na) 5,000 unit SC Q12 [facility] Last Admin: 10/21/19 13:20 Dose: Not Given Documented by: Dextrose (Dextrose 10%-Water) 250 mls @ 999 mls/hr IV .Q16M PRN; Protocol PRN Reason: HYPOGLYCEMIA Metoprolol Succinate (Toprol Xl (Beta Azra)) 50 mg PO BID [facility] Last Admin: 10/21/19 07:58 Dose: 50 mg Documented by: Ondansetron HCl (Zofran) 4 mg IV Q8H PRN PRN PRN Reason: NAUSEA/VOMITING Last Admin: 10/18/19 01:26 Dose: 4 mg Documented by: Oxycodone HCl (Oxyir) 5 mg PO Q6H PRN PRN PRN Reason: SEVERE PAIN Last Admin: 10/21/19 09:27 Dose: 5 mg Documented by: [facility] Last Admin: 10/21/19 07:56 Dose: 2.5 mg Documented by: Sevelamer Carbonate (Renvela) 1,600 mg PO TIDCM [facility] Last Admin: 10/21/19 13:20 Dose: 1,600 mg Documented by: Sodium Chloride () 10 - 40 ml IV UD PRN PRN Reason: SALINE FLUSH Discharge Diet: Renal Diet Discharge Activity: Return to Normal Activity Call your doctor if you observe: Shortness of breath, Dizziness, Fainting spells, Chest pain Home Medications: Medications to take at Discharge Ferrous Gluconate [Iron] 1 tab PO TID 01/16/18 Prednisone 2.5 mg PO BID 01/16/18 Oxycodone HCl 5 mg PO Q6H PRN PRN 09/06/19 Metoprolol(XL)Succ [Toprol Xl (Beta Azra)] 50 mg PO BID #60 tab 09/10/19 ALPRAZolam [Xanax] 0.5 mg PO QHS PRN #0 10/21/19 Aspirin [Aspirin, Baby] 81 mg PO DAILY@0800 #30 tab.chew 10/21/19 Sevelamer Carbonate 1,600 mg PO TIDCM #180 tab 10/21/19 Following Prescrptions Were Given to Patient: Aspirin [Aspirin, Baby] 81 mg PO DAILY@0800 #30 tab.chew Transmission Status[facility] Sevelamer Carbonate 1,600 mg PO TIDCM #180 tab Transmission Status[facility] Primary Care Physician: Jabier Arboleda DO [Primary Care Provider] - Please follow up with your Primary Care Physician in: 1 Week Please Follow Up With: Yulisa Sterling MD When: Continue dialysis as scheduled Disposition: Home Minutes spent on discharge:: 35 Patient Condition:: Stable Medical Necessity - Tobacco Use Smoking Status: Never smoker Tobacco Use: Non-smoker Meaningful Use Info Meaningful Use Diagnoses (Choose all that apply): None applicable
--- NOTE | 2019-10-21 14:35 | PHA.DC.MC ---
Pharmacy Service has performed discharge medication reconciliation and counseling for this patient. 1. ASPIRIN 81MG PO DAILY 2. SEVELAMER 1600MG PO TIDCM The patient's discharge medication list was reviewed for discrepancies and discrepancies were resolved. Home Medications Ferrous Gluconate [Iron] 1 tab PO TID 01/16/18 Prednisone 2.5 mg PO BID 01/16/18 Oxycodone HCl 5 mg PO Q6H PRN PRN 09/06/19 Metoprolol(XL)Succ [Toprol Xl (Beta Azra)] 50 mg PO BID #60 tab 09/10/19 ALPRAZolam [Xanax] 0.5 mg PO QHS PRN #0 10/21/19 Aspirin [Aspirin, Baby] 81 mg PO DAILY@0800 #30 tab.chew 10/21/19 Sevelamer Carbonate 1,600 mg PO TIDCM #180 tab 10/21/19 The patient was counseled on the following discharge medications and changes in medications for homegoing were reviewed. The Reason for Use, instructions for use, and potential side effects were reviewed for all new medications. The patient's questions regarding all of their medications were answered. The patient was able to verbally demonstrate an understanding of their discharge medications.
--- NOTE | 2019-10-21 14:40 | PN_ITS ---
Subjective: Patient seen and examined. Feeling well. Undergoing dialysis. Awaiting established arrangement for outpatient dialysis. - Physical Exam Vitals/I&O's: Vital Signs Temp Pulse Resp BP Pulse Ox 97.3 F L 81 16 118/69 100 10/21/19 12:55 10/21/19 12:55 10/21/19 12:55 10/21/19 12:55 10/21/19 08:45 Oxygen Flow Rate (L/min) 2 Oxygen Delivery Method Room Air Weight: 187 lb 13.341 oz Body Mass Index (BMI) 30.3 Finger Stick Blood Glucose 143 Intake and Output for Last 24 Hours 10/19/19 10/20/19 10/21/19 23:59 23:59 23:59 Intake Total 1200 / 1200 1230 / 1230 460 / 460 Output Total 1999 / 1999 2400 / 2400 Balance -800 / -800 1230 / 1230 -1940 / -1940 General: Alert, Oriented x3, Cooperative HEENT: Atraumatic, PERRLA, EOMI, Normocephalic Neck: Supple, No JVD, Negative Carotid Bruits Lungs: Clear to auscultation, Normal air movement Cardiovascular: Regular rate, Regular Rhythm, Normal S1, Normal S2, No murmurs Abdomen: Bowel Sounds Present, Soft, Non Tender, Non-Distended Extremities: No clubbing, No cyanosis, No edema, Capillary Refill Less than 3 Seconds, - - Left forearm AV fistula Skin: No rashes, No breakdown Musculoskeletal: No Tenderness to Palpation of Joints or Extremities Neurological: Cranial nerves II-XII grossly intact, Neuro grossly intact Psych/Mental Status: Normal Affect, Appropriate Laboratory Results 10/18/19 11:20: Hep B Core IgM Ab Negative 10/21/19 05:12: WBC 10.6, RBC 3.66 L, Hgb 9.2 L, Hct 29.3 L, MCV 80.1 L, MCH 25.1 L, MCHC 31.4 L, RDW Std Deviation 48.8 H, RDW Coeff of Mika 16.7 H, Plt Count 321, MPV 10.2 10/21/19 05:12: Sodium 130 L, Potassium 3.9, Chloride 97 L, Carbon Dioxide 22.0, Anion Gap 11, BUN 62 H, Creatinine 3.75 H, Estim Creat Clear Calc 14.19, Est GFR (MDRD) Af Amer 16 L, Est GFR (MDRD) Non-Af 13 L, BUN/Creatinine Ratio 16.5, Glucose 90, Calcium 8.1 L Current Medications Acetaminophen (Tylenol) 650 mg PO Q6H PRN PRN PRN Reason: Pain Score 1-10/Temp > 100.7 F Last Admin: 10/18/19 19:51 Dose: 650 mg Documented by: Albuterol Sulfate (Ventolin Aerosols) 2.5 mg INHALATION Q2H PRN PRN PRN Reason: SOB/Wheezing Alprazolam (Xanax) 0.5 mg PO QHS PRN PRN PRN Reason: ANXIETY Aspirin (Aspirin, Baby) 81 mg PO DAILY@0800 [facility] Last Admin: 10/21/19 07:56 Dose: 81 mg Documented by: Ferrous Gluconate (Ferrous Gluconate) 324 mg PO TIDCM [facility] Last Admin: 10/21/19 13:20 Dose: Not Given Documented by: Glucagon () 1 mg IM .X1 PRN PRN Reason: Hypoglycemia Heparin Sodium (Porcine) (Heparin Na) 5,000 unit SC Q12 [facility] Last Admin: 10/21/19 13:20 Dose: Not Given Documented by: Dextrose (Dextrose 10%-Water) 250 mls @ 999 mls/hr IV .Q16M PRN; Protocol PRN Reason: HYPOGLYCEMIA Metoprolol Succinate (Toprol Xl (Beta Azra)) 50 mg PO BID [facility] Last Admin: 10/21/19 07:58 Dose: 50 mg Documented by: Ondansetron HCl (Zofran) 4 mg IV Q8H PRN PRN PRN Reason: NAUSEA/VOMITING Last Admin: 10/18/19 01:26 Dose: 4 mg Documented by: Oxycodone HCl (Oxyir) 5 mg PO Q6H PRN PRN PRN Reason: SEVERE PAIN Last Admin: 10/21/19 09:27 Dose: 5 mg Documented by: [facility] () [facility] Last Admin: 10/21/19 07:56 Dose: 2.5 mg Documented by: Sevelamer Carbonate (Renvela) 1,600 mg PO TIDCM [facility] Last Admin: 10/21/19 13:20 Dose: 1,600 mg Documented by: Sodium Chloride () 10 - 40 ml IV UD PRN PRN Reason: SALINE FLUSH Medical Necessity - Tobacco Use Smoking Status: Never smoker Tobacco Use: Non-smoker Assessment/Plan All Active Problems Acute kidney injury superimposed on CKD (Acute) 1. 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 Recent renal ultrasound demonstrated nonspecific renal parenchymal disease, no hydronephrosis. Left forearm fistula in place. Hold nephrotoxic regimen. Trend BMP. Patient underwent dialysis x3. Case management following for ongoing outpatient dialysis set up. 2. Metabolic encephalopathy, secondary #1-treatment per above. PT/OT. 3. Elevated troponin-ongoing, suspect secondary to acute renal failure. EKG without ST-T changes. Recent work-up including echo August 2019 demonstrated EF 55 to 60%, mild to moderate mitral valve insufficiency, mild tricuspid valve insufficiency, pulmonary artery systolic pressure 54 mmHg. 4. Chronic heart failure with preserved ejection fraction-recent echo as noted above. Chest x-ray admission without acute process. Chronic lower extremity edema. DVT ultrasound negative. Benjamín wraps bilateral lower extremities. Lasix regimen on hold secondary to #1. 5. Hypertension-stable, continue metoprolol 50 mg twice daily. 6. AA Amyloidosis-with renal involvement, biopsy positive. 7. Rheumatoid arthritis-on etanercept, low dose prednisone. 8. Abnormal CT of chest-CT 09/07/19 demonstrated small bilateral pleural effusions, larger on the right side which could be loculated. Mediastinal lymphadenopathy. Bilateral lower lobe infiltrate versus atelectasis. Infectious process previously ruled out. Patient is to follow-up with Dr. Linton/Cassia Cazares as previously recommended, as not yet established as outpatient. 9. Depression/anxiety-continue PRN Xanax regimen. Recommend addition of SSRI which can be discussed as outpatient. DVT prophylaxis-heparin subcu This patient was seen by COURTNEY Ingram under the supervision of Dr. Sterling.
[2019-10-21] MEDS: ALPRAZolam 0.5 MG Tablet PO (21:37)
[2019-10-21] MEDS: Heparin Injection (Vial) 5,000 UNIT/ML VIAL 5000 UNIT SC (21:38)
[2019-10-22 03:00] VITALS: PULSE 79
[2019-10-22 03:26] VITALS: BP 122/67; PULSE 83; RESP 17; TEMP 36.8; O2SAT 98
[2019-10-22] MEDS: oxyCODONE 5 MG Tablet PO ×3 (03:38→16:02)
[2019-10-22 07:27] VITALS: PULSE 80
[2019-10-22 08:07] VITALS: BP 124/60; PULSE 75; RESP 18; TEMP 36.4; O2SAT 96
[2019-10-22] MEDS: Ferrous Gluconate 324 MG Tablet PO ×2 (08:15→11:43)
[2019-10-22] MEDS: Aspirin 81 MG TAB.CHEW PO (08:15)
[2019-10-22] MEDS: predniSONE 5 MG Tablet 2.5 MG PO (08:16)
[2019-10-22] MEDS: SEVELAMER CARBONATE 800 MG TABLET 1600 MG PO ×2 (08:16→11:43)
[2019-10-22 08:17] VITALS: BP 124/60; PULSE 75
[2019-10-22] MEDS: Metoprolol(XL)Succ 50 MG Tablet PO (08:17)
[2019-10-22] MEDS: Heparin Injection (Vial) 5,000 UNIT/ML VIAL 5000 UNIT SC (08:17)
--- NOTE | 2019-10-22 10:00 | CASEMGMT ---
Addendum entered by Tati Blanchard 10/22/19 13:33: This RN CM received call from Octavio at [facility] and she states that the contract has been completed and the financials are cleared at this time. Call to Rui at [facility] and he states that the financials just came through on his end. He states pt is good to start OP dialysis on 10/24/19 at 0630 with arrival time of 0600. Pt/ updated at this time, voice understanding. Pt/ voice no further questions/concerns/needs at this time. Sheila RIZVI CM Original Note: Call from Octavio at [facility] financial admissions stating that she has not heard back from Lino Siegel at [employer] in regards to contract yet at this time. Pt/ updated at this time, voice understanding. Pt/ decline need for any further therapy(OP, HHC) at discharge at this time. This RN CM advised them will update them YE once financial clearance obtained. states that he does have transportation set up for pt for OP dialysis at this time. Pt/ voice no further questions/concerns/needs at this time. Sheila RIZVI CM
--- NOTE | 2019-10-22 12:00 | PN.RENAL_ITS ---
Subjective: no new events - Physical Exam Vitals/I&O's: Vital Signs Temp Pulse Resp BP Pulse Ox 97.6 F L 75 18 124/60 H 96 10/22/19 08:07 10/22/19 08:17 10/22/19 08:07 10/22/19 08:17 10/22/19 08:07 Oxygen Flow Rate (L/min) 2 Oxygen Delivery Method Room Air Weight: 85.1 kg Body Mass Index (BMI) 30.3 Finger Stick Blood Glucose 143 Intake and Output for Last 24 Hours 10/20/19 10/21/19 10/22/19 23:59 23:59 23:59 Intake Total 1230 / 1230 940 / 940 440 / 440 Output Total 2500 / 2500 Balance 1230 / 1230 -1560 / -1560 440 / 440 General: Alert, Oriented x3, Cooperative HEENT: Atraumatic, PERRLA, EOMI, Normocephalic Neck: Supple, No JVD, Negative Carotid Bruits Lungs: Clear to auscultation, Normal air movement Cardiovascular: Regular rate, No murmurs Abdomen: Bowel Sounds Present, Soft, Non Tender Extremities: No edema, Capillary Refill Less than 3 Seconds Skin: No rashes, No breakdown Musculoskeletal: No Tenderness to Palpation of Joints or Extremities Neurological: Cranial nerves II-XII grossly intact Psych/Mental Status: Normal Affect, Appropriate Laboratory Results 10/18/19 11:20: Hep B Core IgM Ab Negative Current Medications Acetaminophen (Tylenol) 650 mg PO Q6H PRN PRN PRN Reason: Pain Score 1-10/Temp > 100.7 F Last Admin: 10/18/19 19:51 Dose: 650 mg Documented by: Albuterol Sulfate (Ventolin Aerosols) 2.5 mg INHALATION Q2H PRN PRN PRN Reason: SOB/Wheezing Alprazolam (Xanax) 0.5 mg PO QHS PRN PRN PRN Reason: ANXIETY Last Admin: 10/21/19 21:37 Dose: 0.5 mg Documented by: Aspirin (Aspirin, Baby) 81 mg PO DAILY@0800 [facility] Last Admin: 10/22/19 08:15 Dose: 81 mg Documented by: Docusate Sodium (Colace) 200 mg PO BID [facility] Ferrous Gluconate (Ferrous Gluconate) 324 mg PO TIDCM [facility] Last Admin: 10/22/19 11:43 Dose: 324 mg Documented by: Glucagon () 1 mg IM .X1 PRN PRN Reason: Hypoglycemia Heparin Sodium (Porcine) (Heparin Na) 5,000 unit SC Q12 [facility] Last Admin: 10/22/19 08:17 Dose: 5,000 unit Documented by: Dextrose (Dextrose 10%-Water) 250 mls @ 999 mls/hr IV .Q16M PRN; Protocol PRN Reason: HYPOGLYCEMIA Metoprolol Succinate (Toprol Xl (Beta Azra)) 50 mg PO BID [facility] Last Admin: 10/22/19 08:17 Dose: 50 mg Documented by: Ondansetron HCl (Zofran) 4 mg IV Q8H PRN PRN PRN Reason: NAUSEA/VOMITING Last Admin: 10/18/19 01:26 Dose: 4 mg Documented by: Oxycodone HCl (Oxyir) 5 mg PO Q6H PRN PRN PRN Reason: SEVERE PAIN Last Admin: 10/22/19 10:09 Dose: 5 mg Documented by: Polyethylene Glycol (Miralax) 17 gm PO DAILY [facility] Prednisone () 2.5 mg PO BIDCM [facility] Last Admin: 10/22/19 08:16 Dose: 2.5 mg Documented by: Sevelamer Carbonate (Renvela) 1,600 mg PO TIDCM [facility] Last Admin: 10/22/19 11:43 Dose: 1,600 mg Documented by: Sodium Chloride () 10 - 40 ml IV UD PRN PRN Reason: SALINE FLUSH Medical Necessity - Tobacco Use Smoking Status: Never smoker Tobacco Use: Non-smoker Assessment/Plan All Active Problems Acute kidney injury superimposed on CKD (Acute) Acute renal failure Chronic kidney disease stage III She has known history of biopsy-proven secondary amyloidosis related to rheumatoid arthritis. She was under immunosuppressive therapy for rheumatoid arthritis. Recently renal function and proteinuria have gotten worse. Baseline creatinine seems to be around 1.8-2 with an estimated GFR 35-40 as of last month Function is now worse with creatinine more than 4 and BUN more than 100. started HD. last HD yesterday She will need placement in a dialysis unit. There is some insurance related issues with this. If patient goes to either [place] or [place], we will follow her If she goes to [place] she can follow with her primary soa integration developer
[2019-10-22 15:34] VITALS: BP 136/72; PULSE 88; RESP 18; TEMP 36.7; O2SAT 98
--- NOTE | 2019-10-23 15:26 | CASEMGMT ---
DC DATE: 10.23.2019 DC DISPOSITION: Home with outpt dialysis DC DIAGNOSIS: Renal failure LACE/STRATA: 02/12 F/U APPTS MADE PRIOR TO DC: YES PRESCRIPTIONS ACQUIRED BY PT: unknown Family member answered phone. Pt was not available. Laury STOREYN RN ACM
--- NOTE | 2019-10-23 15:33 | CASEMGMT ---
DC DATE: 10.22.2019 DC DISPOSITION: Home with outpt dialysis DC DIAGNOSIS: Renal failure LACE/STRATA: 02/12 F/U APPTS MADE PRIOR TO DC: YES PRESCRIPTIONS ACQUIRED BY PT: unknown Family member answered phone. Pt was not available. Laury STOREYN RN ACM
== END 2019-10-22 17:01 | disposition home or self-care (01) | DRG 682 ==
LOC: ED 16:24 → PCU 19:36
PROVIDERS: Internal Medicine Nephrology; Nurse Practitioner Family; Admitting Provider Family Medicine; Emergency Provider Emergency Medicine; PCP Family Medicine; Visit Provider Internal Medicine
DX: N17.9 Acute kidney failure, unspecified (principal); G93.41 Metabolic encephalopathy; I21.4 Non-ST elevation (NSTEMI) myocardial infarction; I50.32 Chronic diastolic (congestive) heart failure; E87.1 Hypo-osmolality and hyponatremia; E85.89 Other amyloidosis; M06.9 Rheumatoid arthritis, unspecified; D50.9 Iron deficiency anemia, unspecified; N18.4 Chronic kidney disease, stage 4 (severe); I11.0 Hypertensive heart disease with heart failure; Z79.52 Long term (current) use of systemic steroids; R79.89 Other specified abnormal findings of blood chemistry; F32.9 Major depressive disorder, single episode, unspecified; F41.9 Anxiety disorder, unspecified
CPT/HCPCS: 36415; 71045; 80048; 80069; 83735; 84100; 84484; 85025; 85027; 86705; 86706; 87340; 90937; 93005; 93971; 94640; 97116; 97162; 97166; 97530; 97535; 97802; 99285; J7030; A4216; G0257; J2405

== ENCOUNTER 2019-10-28 18:41 | Inpatient (IN) | payer OTHER, SELFPAY ==
[2019-10-17 19:32] VITALS: BMI 30.3
[2019-10-28 18:42] VITALS: BP 138/82; PULSE 72; RESP 14; TEMP 36.7; O2SAT 95; BMI 33.0
[2019-10-28 18:52] VITALS: O2SAT 97
--- NOTE | 2019-10-28 19:27 | EKG12_ITS ---
Test Reason : FALL Blood Pressure : / mmHG Vent. Rate : 074 BPM Atrial Rate : 074 BPM P-R Int : 228 ms QRS Dur : 098 ms QT Int : 426 ms P-R-T Axes : 068 -23 130 degrees QTc Int : 472 ms Sinus rhythm with 1st degree A-V block T wave abnormality, consider lateral ischemia Prolonged QT Poor R-wave progression Abnormal ECG Confirmed by ESTER LOZANO, MARCELLE ([id number]), editorial cartoonist WHIT GRAHAM ([id number]) on 10/29/2019 1:47:11 PM Referred By: DERICK Confirmed By:MARCELLE NORMAN MD
--- NOTE | 2019-10-28 19:29 | ED.DCSUM_ITS ---
- ER Visit Summary Date of Service: 10/28/19 Chief Complaint: Generalized weakness with fall History of Present Illness: The patient is a 64 F who is recent admission and diagnosed with end-stage renal disease and was dialyzed last week.last dialysis was on Monday. She also has a history of anemia, rheumatoid arthritis and amyloidosis. For which she fell today she was at home she was weak and just Slumped to the floor. Reportedly did not hit her head. She is on no blood thinners. Physical Examination: Older female no acute distress vital signs stable afebrile. Pulse ox 97% room air no signs hypoxia. H EENT exam pupils round reactive light. No signs of trauma to her face or scalp. No hematoma. Tongue midline. Moist. Neck nontender. Lungs clear to auscultation bilaterally. Heart regular rhythm rate about 70 no murmur. Chest wall nontender. Abdomen soft nontender. Normal bowel sounds no peritoneal signs. Patient is moving all 4 extremities. She has 1+ pitting edema both lower extremities. She has a new fistula in her left forearm and has bruising about it. There is no bony deformities. She is able to lift either leg or her arms. Neurologically she is awake. She answers questions and follows commands. Test Results: This x-ray shows cardiomegaly with vascular prominence. Bilateral prosthetic shoulders. But no significant acute abnormality. EKG sinus rhythm rate of 74 with a first-degree AV block unchanged from a prior EKG from September. CBC is a white count of 16,500 hemoglobin 9.4 which is her baseline anemia. Electrolytes show hyponatremia with a sodium of 124. BUN of 57 creatinine 3.78. Normal gap. Emergency Department Course and Treatment: Older female generalized weakness with fall. There is no signs of trauma to her head. Treatment Plan: Repeat exam unchanged. Patient generally weak. She is a significant fall risk. She is already fallen once at home today. Discussed with her hyponatremia. And will bring her in for further evaluation. Disposition: Admission Impression: Acute generalized weakness Acute fall Acute hyponatremia Leukocytosis uncertain etiology Recently diagnosed with end-stage renal disease and started dialysis a week ago. This note was generated with [employer] software. It may contain incorrect words, spelling, and punctuation that were not noted in review of the chart prior to signing ED Disposition - Plan for ED Patient: Referrals: Jabier Arboleda DO [Primary Care Provider] -
--- NOTE | 2019-10-28 19:33 | RAD_ITS ---
STUDY: X-RAY CHEST REASON FOR EXAM: Female, 64 years old. Fall today and increased fatigue. extremely drowsy, unable to follow breathing instruction. TECHNIQUE: Frontal view COMPARISON: October 17, 2019 FINDINGS: The lungs are expanded. Left pulmonary atelectasis. Cardiomegaly. Normal mediastinum and christine. Prominence of the central pulmonary arteries. Normal visualized aortic arch and descending thoracic aorta. Degenerative changes of the thoracic spine. Bilateral shoulder prosthesis. There is no demonstrated abnormality of the visualized soft tissue structures of the upper abdomen. RAD/Chest 1 View (Portable) IMPRESSION: Central pulmonary vascular prominence. Cardiomegaly. Electronically Signed: Loki Kumar DO at 20:29 EDT Tel [phone], Service support ,
[2019-10-28 20:41] VITALS: BP 144/79; PULSE 73; RESP 14; O2SAT 98
[2019-10-28 20:57] LABS: Absolute Lymphocyte Count 1.45 X10^3/uL (0.83-4.51); Absolute Neutrophil Count 14.3 X10^3/uL (2.0-7.7); Basophil# 0.02 X10^3/uL; Basophil% 0.1 % (0-1); Eosinophil# 0.05 X10^3/uL; Eosinophils% 0.3 % (0-5); Hematocrit 30.1 % (37-47); Hemoglobin 9.4 g/dL (12.0-15.0); Lymphocyte # 1.45 X10^3/ul (4.0); Lymphocyte % 8.8 % (19-41); Mean Corp Hgb Conc 31.2 g/dL (32-36); Mean Corpuscular Hgb 25.1 pg (27.0-32.0); Mean Corpuscular Volume 80.5 fL (81-99); Mean Platelet Vol. 9.6 fl (6.2-12.0); Monocyte% 3.6 % (0-10); NRBC Flagged by Analyzer 0 % (0-5); Neutrophil # 14.27 X10^3/uL (2.7-7.7); Neutrophil % 86.7 % (47-70); Platelet Count 360 K/mm3 (150-450); RBC Distribution Width CV 16.7 % (11.6-14.6); RBC Distribution Width SD 49.1 fl (35.1-43.9); Red Blood Count 3.74 M/mm3 (4.2-5.4); White Blood Count 16.5 K/mm3 (4.4-11.0)
[2019-10-28 21:11] LABS: Anion Gap 10 (5-15); BUN 57 mg/dL (7-18); BUN/Creat Ratio 15.1 RATIO (10-20); Calcium,Total 8.2 mg/dL (8.5-10.1); Chloride 88 mmol/L (98-107); Creatinine, Serum 3.78 mg/dL (0.55-1.02); EST Glomerular Filtration Rate 13 mL/min (>60); Est Glom Filt Rate - Afr Amer 16 mL/min (>60); Estimated Creatinine Clearance 14.08 ml/min; Glucose 93 mg/dL (74-106); Potassium 3.9 mmol/L (3.5-5.1); Sodium Level 124 mmol/L (136-145)
[2019-10-28 22:00] VITALS: BP 116/59; PULSE 60; RESP 12; O2SAT 100
--- NOTE | 2019-10-28 23:44 | HP.PCM_ITS ---
Problem List (1) Generalized weakness Status: Acute (2) Acute encephalopathy Status: Acute (3) NSTEMI (non-ST elevated myocardial infarction) Status: Chronic (4) Dialysis patient Status: Chronic (5) Elevated troponin Status: Chronic (6) Congestive heart failure Status: Chronic (7) Rheumatoid arthritis Status: Chronic (8) Amyloidosis Status: Chronic (9) CKD (chronic kidney disease) stage 4, GFR 15-29 ml/min Status: Chronic (10) Renal anasarca Status: Chronic (11) Hyponatremia Status: Acute History of Present Illness Date of Admission: 10/28/19 Chief Complaint: drowsiness. The patient is a 64 year old F with a significant history of end-stage renal disease on dialysis; rheumatoid arthritis; amyloidosis; and congestive heart failure who presented to the emergency department with drowsiness. Associated with symptoms is weakness; and malaise. Patient slumped over and fell. His symptoms started on the same day of presentation. At emergency department his sodium was found to be 124. White count was severely elevated at 16.5. Of note patient was admitted on 10/17/2019 and discharged on 10/21/2019 for acute on chronic CKD stage IV; and metabolic encephalopathy. Past Medical History Past Medical History (Chronic Problems): Chronic Problems (Last Reviewed 10/29/19 @ 01:[address] Marc Snow MD) NSTEMI (non-ST elevated myocardial infarction) (Chronic) Dialysis patient (Chronic) Elevated troponin (Chronic) Congestive heart failure (Chronic) Rheumatoid arthritis (Chronic) Amyloidosis (Chronic) CKD (chronic kidney disease) stage 4, GFR 15-29 ml/min (Chronic) Renal anasarca (Chronic) Medical History: Medical History (Last Reviewed 10/29/19 @ 01:[address] Marc Snow MD) NSTEMI (non-ST elevated myocardial infarction) (Chronic) I21.4 Dialysis patient (Chronic) Z99.2 Acute kidney injury superimposed on CKD (Inactive) N17.9, N18.9 Elevated troponin (Chronic) R79.89 Congestive heart failure (Chronic) I50.9 Rheumatoid arthritis (Chronic) M06.9 Amyloidosis (Chronic) E85.9 CKD (chronic kidney disease) stage 4, GFR 15-29 ml/min (Chronic) N18.4 Renal anasarca (Chronic) N04.9 Hyponatremia (Acute) E87.1 Allergies No Known Allergies Allergy (Verified 10/28/19 18:42) Home Medications: Ambulatory Orders Medication Instructions Recorded Prednisone 2.5 mg PO BID 01/16/18 Oxycodone HCl 5 mg PO Q6H PRN PRN 09/06/19 ALPRAZolam [Xanax] 0.5 mg PO QHS PRN #0 10/21/19 Aspirin [Aspirin, Baby] 81 mg PO DAILY@0800 10/29/19 Metoprolol(XL)Succ [Toprol Xl 50 mg PO BID 10/29/19 (Beta Azra)] Sevelamer Carbonate 1,600 mg PO TIDCM 10/29/19 Surgical History: - - Left forearm AV fistula Psychiatric History: Anxiety, Depression [employer]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 Paternal History Items: - - Denies known paternal medical history including cardiac history. Review of Systems Constitutional: Reports: Malaise, Weakness. Denies: Chills, Fever HEENT: Denies: Head Aches, Sinus Congestion, Sinus Drainage Cardiovascular: Denies: Chest Pain, Palpitations Respiratory: Denies: Cough, Shortness of breath at rest, Sputum production Gastrointestinal: Denies: Abdominal Pain, Nausea, Vomiting Genitourinary: Denies: Dysuria Musculoskeletal: Reports: Leg Pain - Right leg. Denies: Joint Pain, Joint Tenderness Skin: Denies: Rash, Wounds Neurological: Denies: Numbness, Tingling, Focal weakness Psychiatric: Denies: Anxiety, Depression, Homicidal Ideations, Suicidal Ideations Hematologic/ Lymphatic: Denies: Easy Bruising, Easy Bleeding VTE Information - Inpt Only VTE Present on Admission: No VTE Mechan Device Prophylaxis: None VTE Pharm Prophylaxis ordered?: Yes Patient Problems: Active and Suspected Problems (Last Reviewed 10/29/19 @ 01:[address] Marc Snow MD) Generalized weakness (Acute) Acute encephalopathy (Acute) - Physical Exam Vitals/I&O's: Vital Signs Temp Pulse Resp BP Pulse Ox 98.1 F 60 12 116/59 L 100 10/28/19 18:42 10/28/19 22:00 10/28/19 22:00 10/28/19 22:00 10/28/19 22:00 Oxygen Delivery Method Room Air Weight: 92.7 kg Body Mass Index (BMI) 33.0 Finger Stick Blood Glucose 143 General: Lethargic HEENT: Atraumatic, Normocephalic Neck: Supple, Trachea Midline Lungs: Clear to auscultation, Rales Cardiovascular: Regular rate, Gallops Abdomen: Bowel Sounds Present, Soft, Non Tender Extremities: Capillary Refill Less than 3 Seconds, Edema - Bilateral legs and left arm. Skin: - - Ecchymosis of left arm Musculoskeletal: Tenderness - Right leg Neurological: - - Patient is lethargic and not following commands. Psych/Mental Status: - - Lethargic and not following commands. Laboratory Results 10/28/19 20:50: WBC 16.5 H, RBC 3.74 L, Hgb 9.4 L, Hct 30.1 L, MCV 80.5 L, MCH 25.1 L, MCHC 31.2 L, RDW Std Deviation 49.1 H, RDW Coeff of Mika 16.7 H, Plt Count 360, MPV 9.6, Immature Gran % (Auto) 0.500, Neut % (Auto) 86.7 H, Lymph % (Auto) 8.8 L, [place] % (Auto) 3.6, Eos % (Auto) 0.3, Baso % (Auto) 0.1, Absolute Neuts (auto) 14.3 H, Absolute Lymphs (auto) 1.45, Nucleated RBC % 0 10/28/19 20:50: Sodium 124 L, Potassium 3.9, Chloride 88 L, Carbon Dioxide 26.0, Anion Gap 10, BUN 57 H, Creatinine 3.78 H, Estim Creat Clear Calc 14.08, Est GFR (MDRD) Af Amer 16 L, Est GFR (MDRD) Non-Af 13 L, BUN/Creatinine Ratio 15.1, Glucose 93, Calcium 8.2 L Assessment/Plan All Active Problems (Last Reviewed 10/29/19 @ 01:[address] Marc Snow MD) Generalized weakness (Acute) Acute encephalopathy (Acute) Hyponatremia (Acute) The patient is a 64 year old F with a significant history of end-stage renal disease on dialysis; rheumatoid arthritis; amyloidosis; and congestive heart failure who presented to the emergency department with a drowsiness; weakness and malaise and found to have hyponatremia consistent with acute encephalopathy; and also with leukocytosis. Acute metabolic encephalopathy. Noted to have a sodium of 124. We will give a trial of Lasix 40 mg IV push. Consult nephrology for dialysis. Hold all p.o. medication because of lethargy. If patient's cognition improves consider starting home medication including prednisone or consider giving prednisone IV. Home Xanax held. Home oxycodone held. Daily weight Hyponatremia Treatment as above. Trend BMP. Probable acute heart failure with preserved ejection fraction Impression of chest x-ray: central pulmonary vascular prominence. Cardiomegaly. Chest x-ray was independently reviewed. I agree with radiologist interpretation. Echocardiogram on 09/07/2019 showed estimated ejection fraction of 55 to 60%. Mild to moderate mitral valve insufficiency. Mild tricuspid valve insufficiency. Pulmonary artery systolic pressure was 54. Left atrium was moderately enlarged. Right atrium was moderately enlarged. Trial of Lasix as above. Daily weights. Strict intake and outputs measurements. Leukocytosis Etiology is unclear. Of note patient is on low-dose chronic prednisone. Urinalysis is pending. Get blood culture. Trend CBC. Right leg pain Likely secondary to her rheumatoid arthritis. If persists consider ultrasound of right leg. [place] originally ordered at the emergency department was discontinued because of lethargy. Generalized weakness PT and OT to work with patient. End-stage renal disease Likely secondary to amyloidosis Nephrology consult. N.p.o. for now secondary to lethargy. DVT Prophylaxis: Subcutaneous Lovenox Inpatient E&M: 10852 Init Hosp L3
[2019-10-28 23:58] VITALS: BP 144/83; PULSE 72; RESP 13; TEMP 37.2; O2SAT 96
[2019-10-29] VITALS (12 sets, daily range): BP systolic 121–145; BP diastolic 53–83; PULSE 59–97; RESP 14–18; TEMP 36.3–36.8; O2SAT 93–100; BMI 31.6
[2019-10-29 00:44] LABS: Bacteria 0 SEEN /hpf (None Seen); Mucous, Urine 0 SEEN /hpf (<or=2+); Squamous Epithelial Cells - UA 0 SEEN /hpf (5-10); White Blood Cells 0 SEEN /hpf (0-5)
[2019-10-29 00:46] LABS: Color, Urine Yellow (Yellow); Glucose, Dipstick 50 mg/dl (Normal); Ketone-Dipstick Negative (Negative); Leukocyte Esterase-Dipstick Negative /ul (Negative); Nitrite-Dipstick Negative (Negative); Occult Blood-Urine 25 /ul (Negative); Protein-Dipstick 500 mg/dl (Negative); Urine Bilirubin Dipstick Negative (Negative); Urine Clarity Sl. Cloudy (Clear); Urine Urobilinogen Normal (Normal)
[2019-10-29 01:38] LABS: Calcium Oxalate Crystals Ur RARE /hpf (<or=2+); Red Blood Cells-Urine 0-5 SEEN /hpf (0-5)
[2019-10-29] MEDS: Furosemide 40 MG/4 ML Vial IV (01:39)
[2019-10-29] MEDS: 0.9% Saline Lock 10 ML Syringe IV (01:39)
[2019-10-29] MEDS: Enoxaparin 30 MG/0.3 ML Syringe SC (09:05)
--- NOTE | 2019-10-29 11:20 | PN_ITS ---
Patient Problems: Active and Suspected Problems (Last Reviewed 10/29/19 @ 01:[address] Marc Snow MD) Generalized weakness (Acute) Acute encephalopathy (Acute) Subjective: Patient seen and examined. She was admitted with drowsiness, and found to have hyponatremia with sodium of 124, and elevated white cell count. Of note, this is her third admission in about 6 weeks for the same condition. SHe was recently started on dialysis for ESRD. She was only discharged on 10/21/2019 after presenting with the same condition Patient is still lethargic this morning. She is arousable and alert to time, place and person. She denies any pain anywhere. However on account of lethargy and confusion, unable to do comprehensive review of system. was by her bedside and expresses frustration at her repeated admissions with the same problem. He states she is compliant with her medications and states she has been taking oxycodone 5 mg as needed at home for pain in her hands from rheumatoid arthritis. He states she has been compliant with dialysis and last had dialysis 3 days ago. Labs and vitals reviewed. Sodium was 124 on admission and now 126. WBC was 16.5 on admission and now 16.3. Vitals/I&O's: Vital Signs Temp Pulse Resp BP Pulse Ox 97.4 F L 59 L 18 121/53 H 98 10/29/19 06:09 10/29/19 07:08 10/29/19 06:09 10/29/19 06:09 10/29/19 07:49 Oxygen Delivery Method Room Air Weight: 195 lb 12.328 oz Body Mass Index (BMI) 31.6 Finger Stick Blood Glucose 143 General: Alert, Confused, Disoriented, Lethargic HEENT: Atraumatic, PERRLA, EOMI, Normocephalic Oral: Dry Mucosa Neck: Supple, No JVD, Negative Carotid Bruits Lungs: - - decreased breath sounds bibasally, no wheezes or crackles. on room air Cardiovascular: Regular rate, Regular Rhythm, Normal S1, Normal S2, No murmurs Abdomen: Bowel Sounds Present, Soft, Non Tender, Non-Distended, No Hepato- splenomegaly Extremities: No edema, Capillary Refill Less than 3 Seconds Skin: No rashes, No breakdown Musculoskeletal: No Tenderness to Palpation of Joints or Extremities Neurological: Cranial nerves II-XII grossly intact, Neuro grossly intact, Motor Exam 5/5 strength throughout Psych/Mental Status: Normal Affect, Appropriate, Alert and oriented to time, place, person, mood and affect Laboratory Results 10/28/19 20:50: WBC 16.5 H, RBC 3.74 L, Hgb 9.4 L, Hct 30.1 L, MCV 80.5 L, MCH 25.1 L, MCHC 31.2 L, RDW Std Deviation 49.1 H, RDW Coeff of Mika 16.7 H, Plt Count 360, MPV 9.6, Immature Gran % (Auto) 0.500, Neut % (Auto) 86.7 H, Lymph % (Auto) 8.8 L, [place] % (Auto) 3.6, Eos % (Auto) 0.3, Baso % (Auto) 0.1, Absolute Neuts (auto) 14.3 H, Absolute Lymphs (auto) 1.45, Nucleated RBC % 0 10/28/19 20:50: Sodium 124 L, Potassium 3.9, Chloride 88 L, Carbon Dioxide 26.0, Anion Gap 10, BUN 57 H, Creatinine 3.78 H, Estim Creat Clear Calc 14.08, Est GFR (MDRD) Af Amer 16 L, Est GFR (MDRD) Non-Af 13 L, BUN/Creatinine Ratio 15.1, Glucose 93, Calcium 8.2 L 10/29/19 00:40: Urine Color Yellow, Urine Clarity Sl. Cloudy, Urine pH 7.0, Ur Specific [place] 1.010, Urine Protein 500 H, Urine Glucose (UA) 50 H, Urine Ketones Negative, Urine Occult Blood 25 H, Urine Nitrite Negative, Urine Bilirubin Negative, Urine Urobilinogen Normal, Ur Leukocyte Esterase Negative, Urine RBC 0-5 SEEN, Urine WBC 0 SEEN, Ur Squamous Epith Cells 0 SEEN, Calcium Oxalate Crystal RARE, Urine Bacteria 0 SEEN, Urine Mucus 0 SEEN 10/29/19 05:20: WBC 7.3, RBC 2.71 L, Hgb 10.6 L, Hct 26.0 L, MCV 95.9 D, MCH 39.1 H, MCHC 40.8 H D, RDW Std Deviation 51.6 H, RDW Coeff of Mika 18.4 H, Plt Count 182, MPV 10.1, Immature Gran % (Auto) 1.200 H, Neut % (Auto) 89.5 H, Lymph % (Auto) 5.5 L, [place] % (Auto) 3.6, Eos % (Auto) 0.1, Baso % (Auto) 0.1, Absolute Neuts (auto) 6.5, Absolute Lymphs (auto) 0.40 L, Nucleated RBC % 0, Differential Comment SCANNED, Polychromasia 1+ 10/29/19 05:20: Sodium 133 L, Potassium 3.9, Chloride 103, Carbon Dioxide 20.0 L , Anion Gap 10, BUN 38 H, Creatinine 1.78 H, Estim Creat Clear Calc 29.89, Est GFR (MDRD) Af Amer 37 L, Est GFR (MDRD) Non-Af 31 L, BUN/Creatinine Ratio 21.3 H , Glucose 149 H, Calcium 8.9 Diagnostic Data Chest X-Ray 10/28/19 19:33 IMPRESSION: Central pulmonary vascular prominence. Cardiomegaly. Electronically Signed: Loki Kumar DO at 20:29 EDT Tel [phone], Service support , Current Medications Enoxaparin Sodium (Lovenox) 30 mg SC DAILY [facility] Last Admin: 10/29/19 09:05 Dose: 30 mg Documented by: Glucagon () 1 mg IM .X1 PRN PRN Reason: Hypoglycemia Dextrose (Dextrose 10%-Water) 250 mls @ 999 mls/hr IV .Q16M PRN; Protocol PRN Reason: HYPOGLYCEMIA Sodium Chloride () 250 mls @ 15 mls/hr IV .[id number] PRN PRN Reason: Saline Flush Sodium Chloride () 250 mls @ 15 mls/hr IV .[id number] PRN PRN Reason: Additional IVPB Infusion Nutritional Formula (Nepro Carb Steady) 120 ml PO 4X/DAY [facility] Last Admin: 10/29/19 09:02 Dose: Not Given Documented by: Ondansetron HCl (Zofran) 4 mg IV Q8H PRN PRN PRN Reason: NAUSEA/VOMITING Sodium Chloride () 10 - 40 ml IV UD PRN PRN Reason: SALINE FLUSH Last Admin: 10/29/19 01:39 Dose: 10 ml Documented by: STROKE Vital Signs/Narrative: Vital Signs Pulse Ox 10/29/19 07:49 98 Medical Necessity - Tobacco Use Smoking Status: Never smoker Assessment/Plan All Active Problems (Last Reviewed 10/29/19 @ 01:[address] Marc Snow MD) Generalized weakness (Acute) Acute encephalopathy (Acute) Hyponatremia (Acute) 1. Acute metabolic encephalopathy * likely due to hyponatremia, and also probably medication induced * sodium is now up to 133 from 124 on admission. has a history or recurrent admissions with metabolic encephalopathy due to hyponatremia. * says patient has been taking her oxycodone for pain from rheumatoid arthritis, this may also be contributing to metabolic encephalopathy * to have dialysis today, will asses to see if this will help improve mentation. * UA showed no evidence of infection * 2. Acute on chronic heart failure with preserved EF * CXR on admission showed cardiomegaly with central pulmonary vascular prominence * received a dose of IV lasix x 1 * for dialysis today to help with fluid removal * 3. Hyponatremia: likely due to fluid overload from heart failure. For dialysis today. nephrology on board. Sodium was 124 on admission and is now 126. 4. leucocytosis: likely reactive. Wbc was 16 on admission and WBC at 16.3. There is no clear focus of infection, and she is not febrile either. Will monitor 5. RLE pain: has chronic pain due to rheumatoid arthritis. on tylenol. [facility] on hold o./a of encephalopathy 6. 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 for dialysis today. Nephrology consulted. 7. DVT prophylaxis: on lovenox Code status: full code Inpatient E&M: 87237 Subs Hosp L3
[2019-10-29] MEDS: Acetaminophen 325 MG Tablet 650 MG PO ×2 (12:18→18:25)
--- NOTE | 2019-10-29 13:02 | PCM.CONS.R ---
Consultation - Renal PCP/ Referring MD: Requesting physician: [] Primary care physician: Jabier Arboleda DO - History of Present Illness History of Present Illness: The patient is a 64 year old F PMH of ESRD on HD on TTS HD schedule, amyloidosis, anasarca, and RA. Pt was started on HD last week. Pt was brought in for drowsiness and malaise In ED Sodium was found to be low at 124 along with leukocytosis. Pt received one dose of lasix. As per the patient , she is making some urine Pt did received HD session On Monday HD access is MARTIR forearm AVF ROS: 12 systems review is negative except drowsiness and edema [] - Allergies Allergies: Allergies No Known Allergies Allergy (Verified 10/28/19 18:42) - Current Medications Current Medications: Current Medications Acetaminophen (Tylenol) 650 mg PO Q6H PRN PRN PRN Reason: Pain Score 1-10 Last Admin: 10/29/19 12:18 Dose: 650 mg Documented by: Enoxaparin Sodium (Lovenox) 30 mg SC DAILY [facility] Last Admin: 10/29/19 09:05 Dose: 30 mg Documented by: Glucagon () 1 mg IM .X1 PRN PRN Reason: Hypoglycemia Dextrose (Dextrose 10%-Water) 250 mls @ 999 mls/hr IV .Q16M PRN; Protocol PRN Reason: HYPOGLYCEMIA Sodium Chloride () 250 mls @ 15 mls/hr IV .[id number] PRN PRN Reason: Saline Flush Sodium Chloride () 250 mls @ 15 mls/hr IV .[id number] PRN PRN Reason: Additional IVPB Infusion Nutritional Formula (Nepro Carb Steady) 120 ml PO 4X/DAY [facility] Last Admin: 10/29/19 09:02 Dose: Not Given Documented by: Ondansetron HCl (Zofran) 4 mg IV Q8H PRN PRN PRN Reason: NAUSEA/VOMITING Sodium Chloride () 10 - 40 ml IV UD PRN PRN Reason: SALINE FLUSH Last Admin: 10/29/19 01:39 Dose: 10 ml Documented by: - Past Medical History Past Medical History (Chronic Problems): Chronic Problems (Last Reviewed 10/29/19 @ 01:[address] Marc Snow MD) NSTEMI (non-ST elevated myocardial infarction) (Chronic) Dialysis patient (Chronic) Elevated troponin (Chronic) Congestive heart failure (Chronic) Rheumatoid arthritis (Chronic) Amyloidosis (Chronic) CKD (chronic kidney disease) stage 4, GFR 15-29 ml/min (Chronic) Renal anasarca (Chronic) - Past Surgical History Surgical History: - - Left forearm AV fistula - Social History Smoking Status: Never smoker - Family History Maternal History Items: - - Denies known maternal medical history including cardiac history. Paternal History Items: - - Denies known paternal medical history including cardiac history. Patient Problems: Active and Suspected Problems (Last Reviewed 10/29/19 @ 01:[address] Marc Snow MD) Generalized weakness (Acute) Acute encephalopathy (Acute) - Physical Exam Vitals/I&O's: Vital Signs Temp Pulse Resp BP Pulse Ox 97.9 F 66 14 121/55 H 93 10/29/19 10:15 10/29/19 10:15 10/29/19 10:15 10/29/19 10:15 10/29/19 10:15 Oxygen Delivery Method Room Air Weight: 88.8 kg Body Mass Index (BMI) 31.6 Finger Stick Blood Glucose 143 Intake and Output for Last 24 Hours 10/27/19 10/28/19 10/29/19 23:59 23:59 23:59 Intake Total 120 / 120 Balance 120 / 120 General: Cooperative, - - AA0X 2 HEENT: Atraumatic Oral: Moist Mucosa Neck: Supple, No JVD Lungs: Clear to auscultation, Normal air movement, No rhonchi, No wheeze Cardiovascular: Regular rate, Regular Rhythm, Normal S1, Normal S2 Abdomen: Bowel Sounds Present, Soft, Non Tender, Non-Distended Extremities: No clubbing, No cyanosis, Edema - +3 EDEMA OF LE Musculoskeletal: No Tenderness to Palpation of Joints or Extremities Lymphatic: No Cervical, Supraclavicular, or Inguinal Adenopathy Neurological: Neuro grossly intact Psych/Mental Status: Appropriate Laboratory Results 10/28/19 20:50: WBC 16.5 H, RBC 3.74 L, Hgb 9.4 L, Hct 30.1 L, MCV 80.5 L, MCH 25.1 L, MCHC 31.2 L, RDW Std Deviation 49.1 H, RDW Coeff of Mika 16.7 H, Plt Count 360, MPV 9.6, Immature Gran % (Auto) 0.500, Neut % (Auto) 86.7 H, Lymph % (Auto) 8.8 L, [place] % (Auto) 3.6, Eos % (Auto) 0.3, Baso % (Auto) 0.1, Absolute Neuts (auto) 14.3 H, Absolute Lymphs (auto) 1.45, Nucleated RBC % 0 10/28/19 20:50: Sodium 124 L, Potassium 3.9, Chloride 88 L, Carbon Dioxide 26.0, Anion Gap 10, BUN 57 H, Creatinine 3.78 H, Estim Creat Clear Calc 14.08, Est GFR (MDRD) Af Amer 16 L, Est GFR (MDRD) Non-Af 13 L, BUN/Creatinine Ratio 15.1, Glucose 93, Calcium 8.2 L 10/29/19 00:40: Urine Color Yellow, Urine Clarity Sl. Cloudy, Urine pH 7.0, Ur Specific [place] 1.010, Urine Protein 500 H, Urine Glucose (UA) 50 H, Urine Ketones Negative, Urine Occult Blood 25 H, Urine Nitrite Negative, Urine Bilirubin Negative, Urine Urobilinogen Normal, Ur Leukocyte Esterase Negative, Urine RBC 0-5 SEEN, Urine WBC 0 SEEN, Ur Squamous Epith Cells 0 SEEN, Calcium Oxalate Crystal RARE, Urine Bacteria 0 SEEN, Urine Mucus 0 SEEN 10/29/19 05:20: WBC 7.3, RBC 2.71 L, Hgb 10.6 L, Hct 26.0 L, MCV 95.9 D, MCH 39.1 H, MCHC 40.8 H D, RDW Std Deviation 51.6 H, RDW Coeff of Mika 18.4 H, Plt Count 182, MPV 10.1, Immature Gran % (Auto) 1.200 H, Neut % (Auto) 89.5 H, Lymph % (Auto) 5.5 L, [place] % (Auto) 3.6, Eos % (Auto) 0.1, Baso % (Auto) 0.1, Absolute Neuts (auto) 6.5, Absolute Lymphs (auto) 0.40 L, Nucleated RBC % 0, Differential Comment SCANNED, Polychromasia 1+ 10/29/19 05:20: Sodium 133 L, Potassium 3.9, Chloride 103, Carbon Dioxide 20.0 L, Anion Gap 10, BUN 38 H, Creatinine 1.78 H, Estim Creat Clear Calc 29.89, Est GFR (MDRD) Af Amer 37 L, Est GFR (MDRD) Non-Af 31 L, BUN/Creatinine Ratio 21.3 H, Glucose 149 H, Calcium 8.9 Current Medications Acetaminophen (Tylenol) 650 mg PO Q6H PRN PRN PRN Reason: Pain Score 1-05/30 Last Admin: 10/29/19 12:18 Dose: 650 mg Documented by: Enoxaparin Sodium (Lovenox) 30 mg SC DAILY [facility] Last Admin: 10/29/19 09:05 Dose: 30 mg Documented by: Glucagon () 1 mg IM .X1 PRN PRN Reason: Hypoglycemia Dextrose (Dextrose 10%-Water) 250 mls @ 999 mls/hr IV .Q16M PRN; Protocol PRN Reason: HYPOGLYCEMIA Sodium Chloride () 250 mls @ 15 mls/hr IV .[id number] PRN PRN Reason: Saline Flush Sodium Chloride () 250 mls @ 15 mls/hr IV .[id number] PRN PRN Reason: Additional IVPB Infusion Nutritional Formula (Nepro Carb Steady) 120 ml PO 4X/DAY [facility] Last Admin: 10/29/19 09:02 Dose: Not Given Documented by: Ondansetron HCl (Zofran) 4 mg IV Q8H PRN PRN PRN Reason: NAUSEA/VOMITING Sodium Chloride () 10 - 40 ml IV UD PRN PRN Reason: SALINE FLUSH Last Admin: 10/29/19 01:39 Dose: 10 ml Documented by: Assessment/Plan All Active Problems (Last Reviewed 10/29/19 @ 01:[address] Marc Snow MD) Generalized weakness (Acute) Acute encephalopathy (Acute) Hyponatremia (Acute) 1- ESRD . On TTS HD schedule Will arrange for HD session for 3 hours and 3L uf Cr improved from 3.7 to 1.78 mg/dL. Will repeat BMP prior to HD to rule out lab error 2- Anemia: Hgb is > 10 which is appropriate for ESRD 3- Hyponatremia. with FO Pt presented with Na 124 and improved to 133 with one dose of lasix Will re check Na level again to make sure no lab error Will aim for 3 L UF Renal team will continue to follow. Please call if any question at [phone] d/w Dr. Gonzales Franks MD
[2019-10-29 13:05] LABS: Absolute Lymphocyte Count 1.22 X10^3/uL (0.83-4.51); Absolute Neutrophil Count 14.3 X10^3/uL (2.0-7.7); Basophil# 0.04 X10^3/uL; Basophil% 0.2 % (0-1); Eosinophil# 0.06 X10^3/uL; Eosinophils% 0.4 % (0-5); Hematocrit 32.4 % (37-47); Hemoglobin 10.2 g/dL (12.0-15.0); Lymphocyte # 1.22 X10^3/ul (4.0); Lymphocyte % 7.5 % (19-41); Mean Corp Hgb Conc 31.5 g/dL (32-36); Mean Corpuscular Hgb 25.2 pg (27.0-32.0); Mean Platelet Vol. 9.6 fl (6.2-12.0); Monocyte# 0.61 X10^3/uL; Monocyte% 3.7 % (0-10); NRBC Flagged by Analyzer 0 % (0-5); Neutrophil # 14.25 X10^3/uL (2.7-7.7); Neutrophil % 87.6 % (47-70); Platelet Count 308 K/mm3 (150-450); RBC Distribution Width CV 16.6 % (11.6-14.6); RBC Distribution Width SD 48.1 fl (35.1-43.9); Red Blood Count 4.05 M/mm3 (4.2-5.4); White Blood Count 16.3 K/mm3 (4.4-11.0)
--- NOTE | 2019-10-29 13:29 | CASEMGMT ---
Readmission chart review: Pt was here 10/17-10/22/19 for Acute chronic renal failure and pt was set up with OP dialysis during that visit. Per , pt f/u with PCP, went to scheduled OP dialysis, and took meds per order after last discharge. states pt had been doing well until yesterday. Pt readmitted 10/29/19 for Hyponatremia/weakness. Pt is drowsy at this time and just stares at this RN CM when questions asked but does not attempt to answer at this time. answers all questions for this RN CM at this time. CM to follow for PT/OT evals and for any further discharge planning/needs. voices no further questions/concerns/needs at this time. aware to ask for this RN CM if any further questions/concerns/needs arise. SStaten RN CM
[2019-10-29 13:31] LABS: Anion Gap 11 (5-15); BUN 60 mg/dL (7-18); BUN/Creat Ratio 15.9 RATIO (10-20); Calcium,Total 8.4 mg/dL (8.5-10.1); Chloride 92 mmol/L (98-107); Creatinine, Serum 3.78 mg/dL (0.55-1.02); EST Glomerular Filtration Rate 13 mL/min (>60); Est Glom Filt Rate - Afr Amer 16 mL/min (>60); Estimated Creatinine Clearance 14.08 ml/min; Glucose 85 mg/dL (74-106); Potassium 3.4 mmol/L (3.5-5.1); Sodium Level 126 mmol/L (136-145)
[2019-10-29] MEDS: oxyCODONE 5 MG Tablet PO (15:49)
[2019-10-30] VITALS (10 sets, daily range): BP systolic 115–152; BP diastolic 54–68; PULSE 81–114; RESP 18; TEMP 36.4–36.9; O2SAT 97–100
[2019-10-30] MEDS: Acetaminophen 325 MG Tablet 650 MG PO (00:30)
--- NOTE | 2019-10-30 01:30 | DIALYSIS ---
Hemodialysis completed, 3 hours on a 3 k bath. Fluid removed was 3 liters. BP stable throughout tx. Next treatment or per Nephrology. See dialysis flow sheet for details.
[2019-10-30] MEDS: oxyCODONE 5 MG Tablet PO ×3 (01:45→20:47)
[2019-10-30] MEDS: 0.9% Saline Lock 10 ML Syringe IV (01:46)
[2019-10-30 06:25] LABS: Absolute Lymphocyte Count 1.31 X10^3/uL (0.83-4.51); Absolute Neutrophil Count 11.8 X10^3/uL (2.0-7.7); Basophil# 0.04 X10^3/uL; Basophil% 0.3 % (0-1); Eosinophils% 0.7 % (0-5); Hematocrit 31.5 % (37-47); Lymphocyte # 1.31 X10^3/ul (4.0); Lymphocyte % 9.5 % (19-41); Mean Corp Hgb Conc 31.7 g/dL (32-36); Mean Corpuscular Hgb 25.1 pg (27.0-32.0); Mean Corpuscular Volume 79.1 fL (81-99); Mean Platelet Vol. 9.7 fl (6.2-12.0); Monocyte# 0.47 X10^3/uL; Monocyte% 3.4 % (0-10); NRBC Flagged by Analyzer 0 % (0-5); Neutrophil # 11.79 X10^3/uL (2.7-7.7); Neutrophil % 85.5 % (47-70); Platelet Count 380 K/mm3 (150-450); RBC Distribution Width CV 16.5 % (11.6-14.6); RBC Distribution Width SD 46.9 fl (35.1-43.9); Red Blood Count 3.98 M/mm3 (4.2-5.4); White Blood Count 13.8 K/mm3 (4.4-11.0)
[2019-10-30 06:51] LABS: Anion Gap 7 (5-15); BUN 34 mg/dL (7-18); BUN/Creat Ratio 12.1 RATIO (10-20); Calcium,Total 8.2 mg/dL (8.5-10.1); Chloride 97 mmol/L (98-107); EST Glomerular Filtration Rate 18 mL/min (>60); Est Glom Filt Rate - Afr Amer 22 mL/min (>60); Glucose 124 mg/dL (74-106); Potassium 3.2 mmol/L (3.5-5.1); Sodium Level 132 mmol/L (136-145)
[2019-10-30] MEDS: Nepro Liquid 120 ML LIQUID PO ×2 (09:16→13:44)
[2019-10-30] MEDS: Enoxaparin 30 MG/0.3 ML Syringe SC (09:16)
--- NOTE | 2019-10-30 10:38 | PCM.PN.REN ---
Patient Problems: Active and Suspected Problems (Last Reviewed 10/29/19 @ 01:[address] Marc Snow MD) Generalized weakness (Acute) Acute encephalopathy (Acute) Subjective: Patient is doing Ok. more awake today tolerated HD session well No nausea No vomiting No headache - Physical Exam Vitals/I&O's: Vital Signs Temp Pulse Resp BP Pulse Ox 97.8 F 100 18 138/59 H 99 10/30/19 10:17 10/30/19 10:17 10/30/19 10:17 10/30/19 10:17 10/30/19 10:17 Oxygen Delivery Method Room Air Weight: 85 kg Body Mass Index (BMI) 31.6 Finger Stick Blood Glucose 143 Intake and Output for Last 24 Hours 10/28/19 10/29/19 10/30/19 23:59 23:59 23:59 Intake Total 670 / 670 Output Total 1500 / 1500 3000 / 3000 Balance -830 / -830 -3000 / -3000 General: Alert, Oriented x3 HEENT: Atraumatic Oral: Moist Mucosa Neck: Supple, No JVD Lungs: Clear to auscultation, Normal air movement, No rhonchi Cardiovascular: Regular rate, Regular Rhythm, Normal S1 Abdomen: Bowel Sounds Present, Soft, Non Tender Extremities: Edema Lymphatic: No Cervical, Supraclavicular, or Inguinal Adenopathy Neurological: Cranial nerves II-XII grossly intact Psych/Mental Status: Appropriate Laboratory Results 10/29/19 05:20: WBC Cancelled, Corrected WBC Cancelled, RBC Cancelled, Hgb Cancelled, Hct Cancelled, MCV Cancelled, MCH Cancelled, MCHC Cancelled, RDW Std Deviation Cancelled, RDW Coeff of Mika Cancelled, Plt Count Cancelled, MPV Cancelled, Immature Gran % (Auto) Cancelled, Neut % (Auto) Cancelled, Lymph % (Auto) Cancelled, [place] % (Auto) Cancelled, Eos % (Auto) Cancelled, Baso % (Auto) Cancelled, Absolute Neuts (auto) Cancelled, Absolute Lymphs (auto) Cancelled, Total Counted Cancelled, Neutrophils % (Manual) Cancelled, Band Neutrophils % Cancelled, Lymphocytes % (Manual) Cancelled, Monocytes % (Manual) Cancelled, Eosinophils % (Manual) Cancelled, Basophils % (Manual) Cancelled, Metamyelocytes % Cancelled, Myelocytes % Cancelled, Promyelocytes % Cancelled, Blast Cells % Cancelled, Plasma Cell % (Manual) Cancelled, Other Cells % Cancelled, Nucleated RBC % Cancelled, Nucleated RBCs/100 WBC Cancelled, Differential Comment Cancelled, Diff Path Review Cancelled, Hypersegmented Neuts Cancelled, Atypical Lymphocytes Cancelled, Reactive Lymphocytes Cancelled, Smudge Cells Cancelled, Toxic Granulation Cancelled, Toxic Vacuolation Cancelled, Dohle Bodies Cancelled, Marlin Rods Cancelled, Platelet Estimate Cancelled, Plt Morphology Comment Cancelled, RBC Morphology Cancelled, Polychromasia Cancelled, Hypochromasia Cancelled, Poikilocytosis Cancelled, Basophilic Stippling Cancelled, Anisocytosis Cancelled, Microcytosis Cancelled, Macrocytosis Cancelled, Spherocytes Cancelled, Sickle Cells Cancelled, Target Cells Cancelled, Tear Drop Cells Cancelled, Ovalocytes Cancelled, Stomatocytes Cancelled, [place] Bodies Cancelled, [place] Cells Cancelled, Bite Cells Cancelled, Crenated Cell Cancelled, Acanthocytes (Spur) Cancelled, Rouleaux Cancelled, Schistocytes Cancelled 10/29/19 05:20: Sodium Cancelled, Potassium Cancelled, Chloride Cancelled, Carbon Dioxide Cancelled, Anion Gap Cancelled, BUN Cancelled, Creatinine Cancelled, Estim Creat Clear Calc Cancelled, Est GFR (MDRD) Af Amer Cancelled, Est GFR (MDRD) Non-Af Cancelled, BUN/Creatinine Ratio Cancelled, Glucose Cancelled, Calcium Cancelled 10/29/19 12:56: WBC 16.3 H, RBC 4.05 L, Hgb 10.2 L, Hct 32.4 L, MCV 80.0 L, MCH 25.2 L, MCHC 31.5 L, RDW Std Deviation 48.1 H, RDW Coeff of Mika 16.6 H, Plt Count 308, MPV 9.6, Immature Gran % (Auto) 0.600, Neut % (Auto) 87.6 H, Lymph % (Auto) 7.5 L, [place] % (Auto) 3.7, Eos % (Auto) 0.4, Baso % (Auto) 0.2, Absolute Neuts (auto) 14.3 H, Absolute Lymphs (auto) 1.22, Nucleated RBC % 0 10/29/19 12:56: Sodium 126 L, Potassium 3.4 L, Chloride 92 L, Carbon Dioxide 23.0, Anion Gap 11, BUN 60 H, Creatinine 3.78 H, Estim Creat Clear Calc 14.08, Est GFR (MDRD) Af Amer 16 L, Est GFR (MDRD) Non-Af 13 L, BUN/Creatinine Ratio 15.9, Glucose 85, Calcium 8.4 L 10/30/19 05:35: WBC 13.8 H, RBC 3.98 L, Hgb 10.0 L, Hct 31.5 L, MCV 79.1 L, MCH 25.1 L, MCHC 31.7 L, RDW Std Deviation 46.9 H, RDW Coeff of Mika 16.5 H, Plt Count 380, MPV 9.7, Immature Gran % (Auto) 0.600, Neut % (Auto) 85.5 H, Lymph % (Auto) 9.5 L, [place] % (Auto) 3.4, Eos % (Auto) 0.7, Baso % (Auto) 0.3, Absolute Neuts (auto) 11.8 H, Absolute Lymphs (auto) 1.31, Nucleated RBC % 0 10/30/19 05:35: Sodium 132 L, Potassium 3.2 L, Chloride 97 L, Carbon Dioxide 28.0, Anion Gap 7, BUN 34 H, Creatinine 2.80 H, Estim Creat Clear Calc 19.00, Est GFR (MDRD) Af Amer 22 L, Est GFR (MDRD) Non-Af 18 L, BUN/Creatinine Ratio 12.1, Glucose 124 H, Calcium 8.2 L Current Medications Acetaminophen (Tylenol) 650 mg PO Q6H PRN PRN PRN Reason: Pain Score 1-10/10 Last Admin: 10/30/19 00:30 Dose: 650 mg Documented by: Enoxaparin Sodium (Lovenox) 30 mg SC DAILY [facility] Last Admin: 10/30/19 09:16 Dose: 30 mg Documented by: Glucagon () 1 mg IM .X1 PRN PRN Reason: Hypoglycemia Dextrose (Dextrose 10%-Water) 250 mls @ 999 mls/hr IV .Q16M PRN; Protocol PRN Reason: HYPOGLYCEMIA Sodium Chloride () 250 mls @ 15 mls/hr IV .[id number] PRN PRN Reason: Saline Flush Sodium Chloride () 250 mls @ 15 mls/hr IV .[id number] PRN PRN Reason: Additional IVPB Infusion Nutritional Formula (Nepro Carb Steady) 120 ml PO 4X/DAY [facility] Last Admin: 10/30/19 09:16 Dose: 120 ml Documented by: Ondansetron HCl (Zofran) 4 mg IV Q8H PRN PRN PRN Reason: NAUSEA/VOMITING Oxycodone HCl (Oxyir) 5 mg PO Q6H PRN PRN PRN Reason: Pain Score 6-10/10 Last Admin: 10/30/19 01:45 Dose: 5 mg Documented by: Sodium Chloride () 10 - 40 ml IV UD PRN PRN Reason: SALINE FLUSH Last Admin: 10/30/19 01:46 Dose: 20 ml Documented by: Medical Necessity - Tobacco Use Smoking Status: Never smoker Assessment/Plan All Active Problems (Last Reviewed 10/29/19 @ 01:[address] Marc Snow MD) Generalized weakness (Acute) Acute encephalopathy (Acute) Hyponatremia (Acute) 1- ESRD . On TTS HD schedule Last HD session 10/28 . Next HD session tomorrow 2- Anemia: Hgb is 10 which is appropriate for ESRD 3- Hyponatremia. with FO Pt presented with Na 124 and improved to 132 with HD Keep O>I. fluid restriction 40 oz daily UG goal of 3 L with HD sessions Renal team will continue to follow. Please call if any question at [phone] d/w Dr. Gonzales Franks MD
--- NOTE | 2019-10-30 12:56 | PN_ITS ---
Patient Problems: Active and Suspected Problems (Last Reviewed 10/29/19 @ 01:[address] Marc nSow MD) Generalized weakness (Acute) Acute encephalopathy (Acute) Subjective: Patient seen and examined. She is more alert today; she immediately asked for her pain meds when I walked in. She complained of pain in her RUE, due to r heumatoid arthritis. She denies any lightheadedness, dizziness, palpitations, chest pain, abdominal pain, diarrhea or vomiting. Review of systems is otherwise negative. She did have dialysis yesterday with removal of 1.5L of fluid. Vitals/I&O's: Vital Signs Temp Pulse Resp BP Pulse Ox 97.8 F 100 18 138/59 H 99 10/30/19 10:17 10/30/19 10:17 10/30/19 10:17 10/30/19 10:17 10/30/19 10:17 Oxygen Delivery Method Room Air Weight: 187 lb 6.287 oz Body Mass Index (BMI) 31.6 Finger Stick Blood Glucose 143 Intake and Output for Last 24 Hours 10/28/19 10/29/19 10/30/19 23:59 23:59 23:59 Intake Total 670 / 670 360 / 360 Output Total 1500 / 1500 3800 / 3800 Balance -830 / -830 -3440 / -3440 General: Alert, oriented, cooperative HEENT: Atraumatic, PERRLA, EOMI, Normocephalic Oral: Dry Mucosa Neck: Supple, No JVD, Negative Carotid Bruits Lungs: - - decreased breath sounds bibasally, no wheezes or crackles. on room air Cardiovascular: Regular rate, Regular Rhythm, Normal S1, Normal S2, No murmurs Abdomen: Bowel Sounds Present, Soft, Non Tender, Non-Distended, No Hepato- splenomegaly Extremities: No edema, Capillary Refill Less than 3 Seconds; AV fistula with good thrill in LUE Skin: No rashes, No breakdown Musculoskeletal: No Tenderness to Palpation of Joints or Extremities Neurological: Cranial nerves II-XII grossly intact, Neuro grossly intact, Motor Exam 5/5 strength throughout Psych/Mental Status: Normal Affect, Appropriate, Alert and oriented to time, place, person, mood and affect Laboratory Results 10/29/19 05:20: WBC Cancelled, Corrected WBC Cancelled, RBC Cancelled, Hgb Cancelled, Hct Cancelled, MCV Cancelled, MCH Cancelled, MCHC Cancelled, RDW Std Deviation Cancelled, RDW Coeff of Mika Cancelled, Plt Count Cancelled, MPV Cancelled, Immature Gran % (Auto) Cancelled, Neut % (Auto) Cancelled, Lymph % (Auto) Cancelled, [place] % (Auto) Cancelled, Eos % (Auto) Cancelled, Baso % (Auto) Cancelled, Absolute Neuts (auto) Cancelled, Absolute Lymphs (auto) Cancelled, Total Counted Cancelled, Neutrophils % (Manual) Cancelled, Band Neutrophils % Cancelled, Lymphocytes % (Manual) Cancelled, Monocytes % (Manual) Cancelled, Eosinophils % (Manual) Cancelled, Basophils % (Manual) Cancelled, Metamyelocytes % Cancelled, Myelocytes % Cancelled, Promyelocytes % Cancelled, Blast Cells % Cancelled, Plasma Cell % (Manual) Cancelled, Other Cells % Cancelled, Nucleated RBC % Cancelled, Nucleated RBCs/100 WBC Cancelled, Differential Comment Cancelled, Diff Path Review Cancelled, Hypersegmented Neuts Cancelled, Atypical Lymphocytes Cancelled, Reactive Lymphocytes Cancelled, Smudge Cells Cancelled, Toxic Granulation Cancelled, Toxic Vacuolation Cancelled, Dohle Bodies Cancelled, Marlin Rods Cancelled, Platelet Estimate Cancelled, Plt Morphology Comment Cancelled, RBC Morphology Cancelled, Polychromasia Cancelled, Hypochromasia Cancelled, Poikilocytosis Cancelled, Basophilic Stippling Cancelled, Anisocytosis Cancelled, Microcytosis Cancelled, Macrocytosis Cancelled, Spherocytes Cancelled, Sickle Cells Cancelled, Target Cells Cancelled, Tear Drop Cells Cancelled, Ovalocytes Cancelled, Stomatocytes Cancelled, Holm-Garnavillo Bodies Cancelled, Luther Cells Cancelled, Bite Cells Can celled, Crenated Cell Cancelled, Acanthocytes (Spur) Cancelled, Rouleaux Cancelled, Schistocytes Cancelled 10/29/19 05:20: Sodium Cancelled, Potassium Cancelled, Chloride Cancelled, Carbon Dioxide Cancelled, Anion Gap Cancelled, BUN Cancelled, Creatinine Cancelled, Estim Creat Clear Calc Cancelled, Est GFR (MDRD) Af Amer Cancelled, Est GFR (MDRD) Non-Af Cancelled, BUN/Creatinine Ratio Cancelled, Glucose Cancelled, Calcium Cancelled 10/29/19 12:56: WBC 16.3 H, RBC 4.05 L, Hgb 10.2 L, Hct 32.4 L, MCV 80.0 L, MCH 25.2 L, MCHC 31.5 L, RDW Std Deviation 48.1 H, RDW Coeff of Mika 16.6 H, Plt Count 308, MPV 9.6, Immature Gran % (Auto) 0.600, Neut % (Auto) 87.6 H, Lymph % (Auto) 7.5 L, [place] % (Auto) 3.7, Eos % (Auto) 0.4, Baso % (Auto) 0.2, Absolute Neuts (auto) 14.3 H, Absolute Lymphs (auto) 1.22, Nucleated RBC % 0 10/29/19 12:56: Sodium 126 L, Potassium 3.4 L, Chloride 92 L, Carbon Dioxide 23.0, Anion Gap 11, BUN 60 H, Creatinine 3.78 H, Estim Creat Clear Calc 14.08, Est GFR (MDRD) Af Amer 16 L, Est GFR (MDRD) Non-Af 13 L, BUN/Creatinine Ratio 15.9, Glucose 85, Calcium 8.4 L 10/30/19 05:35: WBC 13.8 H, RBC 3.98 L, Hgb 10.0 L, Hct 31.5 L, MCV 79.1 L, MCH 25.1 L, MCHC 31.7 L, RDW Std Deviation 46.9 H, RDW Coeff of Mika 16.5 H, Plt Count 380, MPV 9.7, Immature Gran % (Auto) 0.600, Neut % (Auto) 85.5 H, Lymph % (Auto) 9.5 L, [place] % (Auto) 3.4, Eos % (Auto) 0.7, Baso % (Auto) 0.3, Absolute Neuts (auto) 11.8 H, Absolute Lymphs (auto) 1.31, Nucleated RBC % 0 10/30/19 05:35: Sodium 132 L, Potassium 3.2 L, Chloride 97 L, Carbon Dioxide 28.0, Anion Gap 7, BUN 34 H, Creatinine 2.80 H, Estim Creat Clear Calc 19.00, Est GFR (MDRD) Af Amer 22 L, Est GFR (MDRD) Non-Af 18 L, BUN/Creatinine Ratio 12.1, Glucose 124 H, Calcium 8.2 L Diagnostic Data Chest X-Ray 10/28/19 19:33 IMPRESSION: Central pulmonary vascular prominence. Cardiomegaly. Electronically Signed: Loki Kumar DO at 20:29 EDT Tel [phone], Service support , Current Medications Acetaminophen (Tylenol) 650 mg PO Q6H PRN PRN PRN Reason: Pain Score 1-1010 Last Admin: 10/30/19 00:30 Dose: 650 mg Documented by: Enoxaparin Sodium (Lovenox) 30 mg SC DAILY [facility] Last Admin: 10/30/19 09:16 Dose: 30 mg Documented by: Glucagon () 1 mg IM .X1 PRN PRN Reason: Hypoglycemia Dextrose (Dextrose 10%-Water) 250 mls @ 999 mls/hr IV .Q16M PRN; Protocol PRN Reason: HYPOGLYCEMIA Sodium Chloride () 250 mls @ 15 mls/hr IV .[id number] PRN PRN Reason: Saline Flush Sodium Chloride () 250 mls @ 15 mls/hr IV .[id number] PRN PRN Reason: Additional IVPB Infusion Nutritional Formula (Nepro Carb Steady) 120 ml PO 4X/DAY [facility] Last Admin: 10/30/19 09:16 Dose: 120 ml Documented by: Ondansetron HCl (Zofran) 4 mg IV Q8H PRN PRN PRN Reason: NAUSEA/VOMITING Oxycodone HCl (Oxyir) 5 mg PO Q6H PRN PRN PRN Reason: Pain Score 6-10/10 Last Admin: 10/30/19 01:45 Dose: 5 mg Documented by: Sodium Chloride () 10 - 40 ml IV UD PRN PRN Reason: SALINE FLUSH Last Admin: 10/30/19 01:46 Dose: 20 ml Documented by: STROKE Vital Signs/Narrative: Vital Signs Temp Pulse Resp BP Pulse Ox 10/30/19 10:17 97.8 F 100 18 138/59 H 99 Medical Necessity - Tobacco Use Smoking Status: Never smoker Assessment/Plan All Active Problems (Last Reviewed 10/29/19 @ 01:[address] Marc Snow MD) Generalized weakness (Acute) Acute encephalopathy (Acute) Hyponatremia (Acute) 1. Acute metabolic encephalopathy * likely due to hyponatremia, and also probably medication induced * patient's mentation has now improved significantly * Patient has been repeatedly asking for her pain meds. I did discuss with her that I think she has been taking the pain meds more often than she should be. Patient does say the pain from the rheumatoid arthritis is very severe * WIll need to be referred to pain management. * per discussion with nephrology, since patient is now on dialysis, it will be ok to put her on NSAIDs, and stop narcotics due to her recurrent admissions for metabolic encephalopathy which are thought to be medication induced. * sodium today is 132. * * 2. Acute on chronic heart failure with preserved EF * CXR on admission showed cardiomegaly with central pulmonary vascular prominence * had dialysis with removal of 1.5L of fluid yesterday; for dialysis today * 3. Hyponatremia: * likely due to fluid overload from heart failure. sodium is 132 today. * 4. Hypokalemia: K is 3.2 today. Will replace and monitor 5. leucocytosis: likely reactive. Wbc was 16 on admission and is now down to 13.8. No clear focus of infection. Will monitor 6. RLE pain: * has chronic pain due to rheumatoid arthritis. * on tylenol. * [place] on hold o./a of encephalopathy. Patient does appear to have some dependency on the [place]. * Will start patient on ibuprofen to help with pain. 7. 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 Had dialysis yesterday. For dialysis today. 8. DVT prophylaxis: on lovenox Code status: full code Inpatient E&M: 53041 Subs Hosp L2
[2019-10-31] VITALS (7 sets, daily range): BP systolic 103–121; BP diastolic 54–61; PULSE 78–113; RESP 16–18; TEMP 36.7–36.8; O2SAT 96–100
[2019-10-31] MEDS: oxyCODONE 5 MG Tablet PO (04:34)
[2019-10-31 05:43] LABS: Absolute Lymphocyte Count 1.78 X10^3/uL (0.83-4.51); Absolute Neutrophil Count 10.9 X10^3/uL (2.0-7.7); Basophil# 0.06 X10^3/uL; Basophil% 0.4 % (0-1); Eosinophils% 2.2 % (0-5); Hemoglobin 9.2 g/dL (12.0-15.0); Lymphocyte # 1.78 X10^3/ul (4.0); Lymphocyte % 12.9 % (19-41); Mean Corp Hgb Conc 31.7 g/dL (32-36); Mean Corpuscular Hgb 25.3 pg (27.0-32.0); Mean Corpuscular Volume 79.9 fL (81-99); Mean Platelet Vol. 9.6 fl (6.2-12.0); Monocyte# 0.63 X10^3/uL; Monocyte% 4.6 % (0-10); NRBC Flagged by Analyzer 0 % (0-5); Neutrophil # 10.92 X10^3/uL (2.7-7.7); Neutrophil % 79.2 % (47-70); Platelet Count 415 K/mm3 (150-450); RBC Distribution Width CV 16.6 % (11.6-14.6); Red Blood Count 3.63 M/mm3 (4.2-5.4); White Blood Count 13.8 K/mm3 (4.4-11.0)
[2019-10-31 06:05] LABS: Anion Gap 11 (5-15); BUN 45 mg/dL (7-18); BUN/Creat Ratio 12.4 RATIO (10-20); Calcium,Total 7.8 mg/dL (8.5-10.1); Chloride 96 mmol/L (98-107); Creatinine, Serum 3.64 mg/dL (0.55-1.02); EST Glomerular Filtration Rate 13 mL/min (>60); Est Glom Filt Rate - Afr Amer 16 mL/min (>60); Estimated Creatinine Clearance 14.62 ml/min; Glucose 107 mg/dL (74-106); Potassium 3.8 mmol/L (3.5-5.1); Sodium Level 131 mmol/L (136-145)
[2019-10-31] MEDS: Ibuprofen 400 MG Tablet PO (09:26)
--- NOTE | 2019-10-31 10:54 | PN.RENAL_ITS ---
Patient Problems: Active and Suspected Problems (Last Reviewed 10/29/19 @ 01:[address] Marc Snow MD) Generalized weakness (Acute) Acute encephalopathy (Acute) Subjective: Seen during HD session No complaints - Physical Exam Vitals/I&O's: Vital Signs Temp Pulse Resp BP Pulse Ox 98.1 F 90 18 110/61 100 10/31/19 09:00 10/31/19 09:00 10/31/19 09:00 10/31/19 09:00 10/31/19 09:00 Oxygen Delivery Method Room Air Weight: 86.4 kg Body Mass Index (BMI) 31.6 Finger Stick Blood Glucose 143 Intake and Output for Last 24 Hours 10/29/19 10/30/19 10/31/19 23:59 23:59 23:59 Intake Total 670 / 670 940 / 940 240 / 240 Output Total 1500 / 1500 4100 / 4100 Balance -830 / -830 -3160 / -3160 240 / 240 General: Alert, Cooperative HEENT: Atraumatic Oral: Moist Mucosa Neck: Supple, No JVD Lungs: Clear to auscultation, Normal air movement, No rhonchi Cardiovascular: Regular rate, Regular Rhythm, Normal S1, Normal S2 Abdomen: Bowel Sounds Present, Soft, Non Tender, Non-Distended Extremities: Edema - +1 edema of LE Skin: No rashes Lymphatic: No Cervical, Supraclavicular, or Inguinal Adenopathy Neurological: Neuro grossly intact Psych/Mental Status: Appropriate Laboratory Results 10/31/19 04:54: WBC 13.8 H, RBC 3.63 L, Hgb 9.2 L, Hct 29.0 L, MCV 79.9 L, MCH 25.3 L, MCHC 31.7 L, RDW Std Deviation 48.0 H, RDW Coeff of Mika 16.6 H, Plt Count 415, MPV 9.6, Immature Gran % (Auto) 0.700, Neut % (Auto) 79.2 H, Lymph % (Auto) 12.9 L, [place] % (Auto) 4.6, Eos % (Auto) 2.2, Baso % (Auto) 0.4, Absolute Neuts (auto) 10.9 H, Absolute Lymphs (auto) 1.78, Nucleated RBC % 0 10/31/19 04:54: Sodium 131 L, Potassium 3.8, Chloride 96 L, Carbon Dioxide 24.0, Anion Gap 11, BUN 45 H, Creatinine 3.64 H, Estim Creat Clear Calc 14.62, Est GFR (MDRD) Af Amer 16 L, Est GFR (MDRD) Non-Af 13 L, BUN/Creatinine Ratio 12.4, Glucose 107 H, Calcium 7.8 L Current Medications Acetaminophen (Tylenol) 650 mg PO Q6H PRN PRN PRN Reason: Pain Score 1-05/30 Last Admin: 10/30/19 00:30 Dose: 650 mg Documented by: Enoxaparin Sodium (Lovenox) 30 mg SC DAILY [facility] Last Admin: 10/30/19 09:16 Dose: 30 mg Documented by: Glucagon () 1 mg IM .X1 PRN PRN Reason: Hypoglycemia Dextrose (Dextrose 10%-Water) 250 mls @ 999 mls/hr IV .Q16M PRN; Protocol PRN Reason: HYPOGLYCEMIA Sodium Chloride () 250 mls @ 15 mls/hr IV .[id number] PRN PRN Reason: Saline Flush Sodium Chloride () 250 mls @ 15 mls/hr IV .[id number] PRN PRN Reason: Additional IVPB Infusion Ibuprofen (Motrin) 400 mg PO Q6H PRN PRN PRN Reason: Pain Score 1-05/30 Last Admin: 10/31/19 09:26 Dose: 400 mg Documented by: Nutritional Formula (Nepro Carb Steady) 120 ml PO 4X/DAY [facility] Last Admin: 10/30/19 20:47 Dose: Not Given Documented by: Ondansetron HCl (Zofran) 4 mg IV Q8H PRN PRN PRN Reason: NAUSEA/VOMITING Oxycodone HCl (Oxyir) 5 mg PO Q6H PRN PRN PRN Reason: Pain Score 6-10 Last Admin: 10/31/19 04:34 Dose: 5 mg Documented by: Sodium Chloride () 10 - 40 ml IV UD PRN PRN Reason: SALINE FLUSH Last Admin: 10/30/19 01:46 Dose: 20 ml Documented by: Medical Necessity - Tobacco Use Smoking Status: Never smoker Assessment/Plan All Active Problems (Last Reviewed 10/29/19 @ 01:[address] Marc Snow MD) Generalized weakness (Acute) Acute encephalopathy (Acute) Hyponatremia (Acute) 1- ESRD . On TTS HD schedule HD session today: BQ 300 DQ 700 UF 3L HD access LUE AVF 2- Anemia: Hgb is 10 which is appropriate for ESRD 3- Hyponatremia. with FO Pt presented with Na 124 and improved to 132 with HD Keep O>I. fluid restriction 40 oz daily UG goal of 3 L with HD sessions Renal team will continue to follow. Please call if any question at [phone] Gabriela Franks MD
--- NOTE | 2019-10-31 11:26 | PCM.DC ---
- Discharge Diagnoses Current Active Problems: Current Active and Chronic Problems (Last Reviewed 10/29/19 @ 01:[address] Marc Snow MD) Generalized weakness (Acute) Acute encephalopathy (Acute) You will use the following diet at home:: Cardiac Your food should be the consistency of: Regular Your liquids should be the consistency of: Regular/Thin Discharge Activity: Return to Normal Activity Weight Bearing Status: Weight bearing as tolerated Instructions: Hyponatremia, Medication for Pain Additional Instructions: please take tylenol and ibuprofen for pain before taking oxycodone as needed. Use oxycodone as sparingly as possible. PCP to refer to pain management as appropriate Allergies/Adverse Reactions: Allergies No Known Allergies Allergy (Verified 10/28/19 18:42) Medications to take at Discharge Prednisone 2.5 mg PO BID 01/16/18 Oxycodone HCl 5 mg PO Q6H PRN PRN 09/06/19 ALPRAZolam [Xanax] 0.5 mg PO QHS PRN #0 10/21/19 Aspirin [Aspirin, Baby] 81 mg PO DAILY@0800 10/29/19 Metoprolol(XL)Succ [Toprol Xl (Beta Azra)] 50 mg PO BID 10/29/19 Sevelamer Carbonate 1,600 mg PO TIDCM 10/29/19 Acetaminophen [Tylenol Tablet] 650 mg PO Q6H PRN PRN #30 tab 10/31/19 Ibuprofen [Motrin] 400 mg PO Q6H PRN PRN #30 tab 10/31/19 The following prescriptions were given: Ibuprofen [Motrin] 400 mg PO Q6H PRN PRN #30 tab PRN Reason: Pain Score 1-1010 Transmission Status: Pending to [facility] Acetaminophen [Tylenol Tablet] 650 mg PO Q6H PRN PRN #30 tab PRN Reason: Pain Score 1-10/10 Transmission Status: Pending to [facility] Primary Care Physician: Jabier Arboleda DO [Primary Care Provider] - Please follow up with your Primary Care Physician in: one week Test Results: Test results from this visit will be discussed in further detail at your follow-up appointment, if applicable. Please Follow Up With: Jabier Arboleda DO Please Follow Up With: Gabriela Franks MD When: 1-2 weeks Proposed Discharge Date: 10/31/19
--- NOTE | 2019-10-31 11:30 | DS.PCM_ITS ---
Discharge Date and Diagnosis Date of Admission: 10/28/19 Date of Discharge: 10/31/19 - Primary Discharge Diagnosis Active and Suspected Problems (Last Reviewed 10/29/19 @ 01:[address] Marc Snow MD) Generalized weakness (Acute) Acute encephalopathy (Acute) hyponatremia acute on chronic HFpEF - Secondary Discharge Diagnosis Chronic Problems (Last Reviewed 10/29/19 @ 01:[address] Marc Snow MD) NSTEMI (non-ST elevated myocardial infarction) (Chronic) Dialysis patient (Chronic) Elevated troponin (Chronic) Congestive heart failure (Chronic) Rheumatoid arthritis (Chronic) Amyloidosis (Chronic) CKD (chronic kidney disease) stage 4, GFR 15-29 ml/min (Chronic) Renal anasarca (Chronic) Hospital Course and Treatment Imaging Results: Diagnostic Data Chest X-Ray 10/28/19 19:33 IMPRESSION: Central pulmonary vascular prominence. Cardiomegaly. Electronically Signed: Loki Kumar DO at 20:29 EDT Tel [phone], Service support , nephrology- Dr Franks Operations: None Procedures: None Summary of Care Provided: The patient is a 64 year old F and extensive past medical history as outlined. She had recently been started on hemodialysis count of ESRD due to amyloidosis. She was admitted through the ED on 10/28/2019 with a complaint of drowsiness with associated weakness and malaise. Symptoms had started on day of admission. This was patient's third admission in about 6 weeks for the same condition and had only been discharged on 10/21/2019 after presenting with the same condition. Patient had been taking oxycodone 5 mg daily every 6 hours as needed for pain due to rheumatoid arthritis. However on further inquiry, it appeared as if patient was taking her pain meds more frequently than usual and was not very compliant with her Lasix after she became confused with the pain meds. She was admitted and managed for acute metabolic encephalopathy likely medication induced and due to hyponatremia. Sodium on admission was 124 and she was also managed for acute on chronic hyponatremia. Hyponatremia was thought to be likely due to fluid overload from noncompliance with her Lasix and she got confused. Nephrology was consulted and patient had dialysis. She had elevated white cell count on admission but there was no focus of infection and this was thought to be reactive. Her pain medications were held. After her pain medications were held and she got dialysis, patient's mentation improved markedly. Patient was counseled that she would need to be referred to pain management by her primary care doctor. Also per discussion with nephrology, since she was on dialysis, she could be on NSAIDs as she did not need to avoid them any longer to protect her kidneys. Therefore was decided that it would be better for patient to be taking NSAIDs and Tylenol instead of taking oxycodone and abdominal cul-de-sacs frequently as she was leading to her acute metabolic encephalopathy. Patient remained stable and was discharged home on 10/31/2019. She was given a prescription for p.o. Tylenol and p.o. ibuprofen. She was counseled to stick to the regimen of oxycodone at 5 mg daily every 6 hours as needed get more than that and to only take it after she took Tylenol ibuprofen and they did not work. She is to follow-up with her primary care doctor within 1 week and to follow-up with nephrology for dialysis. She is referred to pain management as appropriate by her primary care doctor. Patient seen and examined prior to discharge. She was very alert and eating breakfast and had no complaints. As soon as I walked in, patient asked for her pain medication though she had been comfortably eating breakfast before I went in. Labs and vitals reviewed. Home medications reviewed and reconciled. o/e: Vital Signs Height 5 ft 6 in Weight: 190 lb 7.67 oz Weight in Pounds 190.5 lbs Pulse Ox 97 Temperature 98.2 F Pulse Rate 113 Respiratory Rate 18 Blood Pressure 103/57 Blood Pressure Position Semi-Fowlers [] General: Alert, Cooperative, Confused, HEENT: Atraumatic, PERRLA, EOMI, Normocephalic Oral: Dry Mucosa Neck: Supple, No JVD, Negative Carotid Bruits Lungs: Clear to auscultation, Normal air movement, No rhonchi, No wheeze, No rales Cardiovascular: Regular rate, Regular Rhythm, Normal S1, Normal S2, No murmurs Abdomen: Bowel Sounds Present, Soft, Non Tender, Non-Distended, No Hepato-splenomegaly Extremities: No clubbing, No cyanosis, No edema, Capillary Refill Less than 3 Seconds Skin: No rashes, No breakdown Musculoskeletal: No Tenderness to Palpation of Joints or Extremities Lymphatic: No Cervical, Supraclavicular, or Inguinal Adenopathy Neurological: Cranial nerves II-XII grossly intact, Neuro grossly intact, Motor Exam 5/5 strength throughout Psych/Mental Status: -normal affect Plan is for discharge home today. - Physical Exam Vitals/I&O's: Vital Signs Temp Pulse Resp BP Pulse Ox 98.1 F 90 18 110/61 100 10/31/19 09:00 10/31/19 09:00 10/31/19 09:00 10/31/19 09:00 10/31/19 09:00 Oxygen Delivery Method Room Air Weight: 190 lb 7.67 oz Body Mass Index (BMI) 31.6 Finger Stick Blood Glucose 143 Intake and Output for Last 24 Hours 10/29/19 10/30/19 10/31/19 23:59 23:59 23:59 Intake Total 670 / 670 940 / 940 240 / 240 Output Total 1500 / 1500 4100 / 4100 Balance -830 / -830 -3160 / -3160 240 / 240 Laboratory Results 10/31/19 04:54: WBC 13.8 H, RBC 3.63 L, Hgb 9.2 L, Hct 29.0 L, MCV 79.9 L, MCH 25.3 L, MCHC 31.7 L, RDW Std Deviation 48.0 H, RDW Coeff of Mika 16.6 H, Plt Count 415, MPV 9.6, Immature Gran % (Auto) 0.700, Neut % (Auto) 79.2 H, Lymph % (Auto) 12.9 L, [place] % (Auto) 4.6, Eos % (Auto) 2.2, Baso % (Auto) 0.4, Absolute Neuts (auto) 10.9 H, Absolute Lymphs (auto) 1.78, Nucleated RBC % 0 10/31/19 04:54: Sodium 131 L, Potassium 3.8, Chloride 96 L, Carbon Dioxide 24.0, Anion Gap 11, BUN 45 H, Creatinine 3.64 H, Estim Creat Clear Calc 14.62, Est GFR (MDRD) Af Amer 16 L, Est GFR (MDRD) Non-Af 13 L, BUN/Creatinine Ratio 12.4, Glucose 107 H, Calcium 7.8 L Current Medications Acetaminophen (Tylenol) 650 mg PO Q6H PRN PRN PRN Reason: Pain Score 1-05/30 Last Admin: 10/30/19 00:30 Dose: 650 mg Documented by: Enoxaparin Sodium (Lovenox) 30 mg SC DAILY [facility] Last Admin: 10/30/19 09:16 Dose: 30 mg Documented by: Glucagon () 1 mg IM .X1 PRN PRN Reason: Hypoglycemia Dextrose (Dextrose 10%-Water) 250 mls @ 999 mls/hr IV .Q16M PRN; Protocol PRN Reason: HYPOGLYCEMIA Sodium Chloride () 250 mls @ 15 mls/hr IV .[id number] PRN PRN Reason: Saline Flush Sodium Chloride () 250 mls @ 15 mls/hr IV .[id number] PRN PRN Reason: Additional IVPB Infusion Ibuprofen (Motrin) 400 mg PO Q6H PRN PRN PRN Reason: Pain Score 1-05/30 Last Admin: 10/31/19 09:26 Dose: 400 mg Documented by: Nutritional Formula (Nepro Carb Steady) 120 ml PO 4X/DAY [facility] Last Admin: 10/30/19 20:47 Dose: Not Given Documented by: Ondansetron HCl (Zofran) 4 mg IV Q8H PRN PRN PRN Reason: NAUSEA/VOMITING Oxycodone HCl (Oxyir) 5 mg PO Q6H PRN PRN PRN Reason: Pain Score 6-1010 Last Admin: 10/31/19 04:34 Dose: 5 mg Documented by: Sodium Chloride () 10 - 40 ml IV UD PRN PRN Reason: SALINE FLUSH Last Admin: 10/30/19 01:46 Dose: 20 ml Documented by: Discharge Diet: Low fat/ Low Cholesterol Discharge Activity: Return to Normal Activity Weight Bearing Status: Weight bearing as tolerated Home Medications: Medications to take at Discharge Prednisone 2.5 mg PO BID 01/16/18 Oxycodone HCl 5 mg PO Q6H PRN PRN 09/06/19 ALPRAZolam [Xanax] 0.5 mg PO QHS PRN #0 10/21/19 Aspirin [Aspirin, Baby] 81 mg PO DAILY@0800 10/29/19 Metoprolol(XL)Succ [Toprol Xl (Beta Azra)] 50 mg PO BID 10/29/19 Sevelamer Carbonate 1,600 mg PO TIDCM 10/29/19 Acetaminophen [Tylenol Tablet] 650 mg PO Q6H PRN PRN #30 tab 10/31/19 Ibuprofen [Motrin] 400 mg PO Q6H PRN PRN #30 tab 10/31/19 Following Prescrptions Were Given to Patient: Ibuprofen [Motrin] 400 mg PO Q6H PRN PRN #30 tab PRN Reason: Pain Score 1-05/30 Transmission Status: Received by [facility] Acetaminophen [Tylenol Tablet] 650 mg PO Q6H PRN PRN #30 tab PRN Reason: Pain Score 1-05/30 Transmission Status: Received by [facility] Primary Care Physician: Jabier Arboleda DO [Primary Care Provider] - Please follow up with your Primary Care Physician in: one week Please Follow Up With: Jabier Arboleda DO Please Follow Up With: Gabriela Franks MD When: 1-2 weeks Patient Instructions: Medication for Pain, Hyponatremia Disposition: Home Minutes spent on discharge:: 45 Patient Condition:: Stable Medical Necessity - Tobacco Use Smoking Status: Never smoker Meaningful Use Info Meaningful Use Diagnoses (Choose all that apply): CHF - CHF SUSANA/ARB ordered at discharge?: No Reason SUSANA/ARB not ordered?: Worsening renal disease Documented LVEF (%): 60 Inpatient E&M: 48341 Disch Hosp
--- NOTE | 2019-10-31 12:08 | PHA.DC.MC ---
Pharmacy Service has performed discharge medication reconciliation and counseling for this patient. The patient's discharge medication list was reviewed for discrepancies and discrepancies were resolved. The patient was counseled on the following discharge medications and changes in medications for homegoing were reviewed. also discussed with the patient how to alternate tylenol and ibuprofen use in order to avoid using oxycodone as primary medication for pain control. 1. IBUPROFEN 2. TYLENOL The Reason for Use, instructions for use, and potential side effects were reviewed for all new medications. The patient's questions regarding all of their medications were answered. The patient demonstrated some understanding but would benefit from further education and reinforcement.
[2019-10-31] MEDS: Nepro Liquid 120 ML LIQUID PO (12:09)
--- NOTE | 2019-10-31 13:03 | DIALYSIS ---
Hemodialysis x 4 hours with 3K bath; Tolerated well. Removed = -2300; LLAVF needles pulled; stasis complete; DSD applied; +bruit +thrill. L forearm & hand 2+ edema & bruising noted d/t previous infiltrate. Report given to RN.
[2019-10-31] MEDS: Acetaminophen 325 MG Tablet 650 MG PO (14:20)
--- NOTE | 2019-11-01 14:48 | CASEMGMT ---
DC DATE: 11.01.2019 DC DISPOSITION: Home DC DIAGNOSIS: NSTEMI LACE/STRATA: 01/12 F/U APPTS MADE PRIOR TO DC: yes PRESCRIPTIONS ACQUIRED BY PT:x Attempted call, unable to speak with pt. Laury STOREYN RN ACM
== END 2019-10-31 14:29 | disposition home or self-care (01) | DRG 917 ==
LOC: ED 19:53 → PCU 10-29 00:42
PROVIDERS: Admitting Provider Hospitalist; Emergency Provider Emergency Medicine; PCP Family Medicine; Visit Provider Student in an Organized Health Care Education/Training Program
DX: T40.2X1A Poisoning by other opioids, accidental (unintentional), initial encounter (principal); G92 Toxic encephalopathy; I50.33 Acute on chronic diastolic (congestive) heart failure; N18.6 End stage renal disease; E87.1 Hypo-osmolality and hyponatremia; N04.9 Nephrotic syndrome with unspecified morphologic changes; E85.4 Organ-limited amyloidosis; R53.1 Weakness; R40.0 Somnolence; R53.81 Other malaise; D63.1 Anemia in chronic kidney disease; E87.6 Hypokalemia; I25.2 Old myocardial infarction; M06.9 Rheumatoid arthritis, unspecified; G89.29 Other chronic pain; R79.89 Other specified abnormal findings of blood chemistry; Z91.14 Patient's other noncompliance with medication regimen; Z99.2 Dependence on renal dialysis; Z79.82 Long term (current) use of aspirin; Z79.52 Long term (current) use of systemic steroids; Z79.899 Other long term (current) drug therapy
CPT/HCPCS: 36415; 71045; 80048; 81001; 85025; 87040; 90937; 93005; 97110; 97116; 97162; 97166; 97530; 97802; 99285; J7030; A4216; G0257; J1940

== ENCOUNTER 2020-06-15 19:27 | Inpatient (IN) | payer OTHER, SELFPAY ==
[2019-10-29 00:57] VITALS: BMI 31.6
[2020-06-15 19:28] VITALS: BP 76/44; PULSE 42; RESP 18; TEMP 36.1; O2SAT 100; BMI 35.6
--- NOTE | 2020-06-15 19:52 | EKG12_ITS ---
Test Reason : WEAKNESS Blood Pressure : / mmHG Vent. Rate : 038 BPM Atrial Rate : 038 BPM P-R Int : 158 ms QRS Dur : 106 ms QT Int : 538 ms P-R-T Axes : 065 -65 163 degrees QTc Int : 427 ms Marked sinus bradycardia Left axis deviation Inferior infarct , age undetermined Cannot rule out Anterior infarct , age undetermined ST & T wave abnormality, consider lateral ischemia Abnormal ECG Confirmed by RADHA LOZANO, TIMOTHY ([id number]), editor greeting card EDIS JACOBS ([id number]) on 06/17/2020 1:47:52 PM Referred By: JAY Confirmed By:TIMOTHY GARCIA MD
--- NOTE | 2020-06-15 19:54 | ED.VIS.GEN ---
History of Present Illness Chief Complaint: Weakness Informant: Patient Onset: 11-23 Context: Gradual Onset Timing: Continuous Quality: malaised Location: all over Current Severity: Severe Maximum Severity: Severe Worsened by: nothing in particular Relieved by: nothing Associated Symptoms: myalgias, headaches, dysuria, cough improved, chest pain earlier Narrative: Dialysis patient states for the past 4 to 5 days she has felt like she has the flu. She has not been around anyone that she knows of with COVID-19 but goes to dialysis Tuesdays, , Saturdays. She has not missed any, and is due again tomorrow, Monday. She denies any dyspnea. She had some chest discomfort earlier today, it is mostly gone, she thinks it felt like pressure and noticed it when she was taking deep breaths but not now. She had a cough, but states in the past day or 2 it seems to be gone. She noticed dysuria and hematuria off-and-on the last several days, she does make small amounts of urine. - Past Medical History (1) Amyloidosis Status: Chronic (2) CKD (chronic kidney disease) stage 4, GFR 15-29 ml/min Status: Chronic (3) Congestive heart failure Status: Chronic (4) NSTEMI (non-ST elevated myocardial infarction) Status: Chronic (5) Rheumatoid arthritis Status: Chronic Past Medical History - Allergies and Home Meds Allergies/Adverse Reactions: Allergies No Known Allergies Allergy (Verified 10/28/19 18:42) Doctors: Asher - nephrology Surgical History: - - Left forearm AV fistula Smoking Status: Never smoker - Family History Maternal Family History: Reports: - - Denies known maternal medical history including cardiac history. Paternal Family History: Reports: - - Denies known paternal medical history including cardiac history. Review of Systems General: Reports: Chills, Malaise. Denies: Fever, Sweats Eyes: Denies: Visual changes - bilaterally, Diplopia ENT: Denies: Rhinorrhea, Sore throat Cardiovascular: Reports: Chest pain. Denies: Palpitations Respiratory: Reports: Cough. Denies: Dyspnea, Sputum, Dyspnea on exertion, Orthopnea Gastrointestinal: Denies: Abdominal pain, Nausea, Vomiting, Diarrhea, Melena, Hematochezia Genitourinary: Denies: Dysuria, Hematuria, Frequency Musculoskeletal: Reports: Myalgias, Arthralgias - Chronic due to arthritis, Back pain - Chronic due to arthritis. Denies: Neck pain, Swelling, Extremity Pain Skin: Denies: Rash, Wounds Neurological: Reports: Headache. Denies: Weakness, Numbness Physical Exam Vital Signs/Narrative: Vital Signs Temp Pulse Resp BP Pulse Ox 06/15/20 19:28 97.0 F L 42 L 18 76/44 L 100 Inital Vital Signs reviewed: Yes General: Well nourished, Well developed, No Acute Distress - Conversive in full sentences without distress Head: Normocephalic, Atraumatic Eyes: Perrl, EOMI ENT: Moist mucous membranes, No rhinorrhea Neck: Supple, Nontender, No lymphadenopathy Cardiovascular: Regular rate, Regular rhythm, No murmurs Respiratory: No distress, CTA bilaterally, Chest nontender Abdomen: Soft, Nontender, Nondistended, Normal bowel sounds Back: Nontender, Normal Inspection. Negative for: CVA tenderness Extremities: Nontender, No edema. Negative for: Calf Tenderness Skin: Normal color, No rash, No Trauma Neurological: Alert, Oriented x3, Cranial nerves II-XII grossly intact, Normal Strength, Normal Sensation Psychological: Normal affect, Normal Mood Diagnostic/Tx/Re-eval Impressions Chest X-Ray 06/15/20 20:50 IMPRESSION: No acute pulmonary findings. Electronically Signed: Brayden Gudino MD at 21:31 EDT Tel , Service support , Chest CTA 06/15/20 23:40 IMPRESSION: No demonstrated pulmonary embolism or arterial dissection. Right lower lobe pneumonia. Left upper and lower lobe atelectasis. Electronically Signed: Brayden Gudino MD at 0:09 EDT Tel , Service support , Laboratory Tests 06/15/20 06/15/20 06/15/20 Range/Units 20:45 20:00 19:45 WBC (4.4-11.0) K/mm3 RBC (4.2-5.4) M/mm3 Hgb (12.0-15.0) g/dL Hct (37-47) % MCV (81-99) fL MCH (27.0-32.0) pg MCHC (32-36) g/dL RDW Std Deviation (35.1-43.9) fl RDW Coeff of Mika (11.6-14.6) % Plt Count (150-450) K/mm3 MPV (6.2-12.0) fl Immature Gran % (Auto) (0.0-0.9) % Neut % (Auto) (47-70) % Lymph % (Auto) (19-41) % [place] % (Auto) (0-10) % Eos % (Auto) (0-5) % Baso % (Auto) (0-1) % Absolute Neuts (auto) (2.0-7.7) X10^3/uL Absolute Lymphs (auto) (0.83-4.51) X10^3/uL Nucleated RBC % (0-5) % D-Dimer Quant (PE/DVT) (0.27-0.49) FEU/ug/m Sodium (136-145) mmol/L Potassium (3.5-5.1) mmol/L Chloride (98-107) mmol/L Carbon Dioxide (21.0-32.0) mmol/L Anion Gap (5-15) BUN (7-18) mg/dL Creatinine (0.55-1.02) mg/dL Estim Creat Clear Calc ml/min Est GFR (MDRD) Af Amer (>60) mL/min Est GFR (MDRD) Non-Af (>60) mL/min BUN/Creatinine Ratio (10-20) RATIO Glucose (74-106) mg/dL Lactic Acid 2.7 H* (0.4-1.9) mmol/L Calcium (8.5-10.1) mg/dL Total Bilirubin (0.20-1.00) mg/dL AST (15-37) U/L ALT (13-56) U/L Alkaline Phosphatase (45-117) U/L Troponin I (<0.045) ng/mL Total Protein (6.4-8.2) g/dL Albumin (3.2-5.0) g/dL Globulin (2.2-4.2) g/dL Albumin/Globulin Ratio (0.9-2.4) RATIO Urine Color Yellow (Yellow) Urine Clarity Sl. Cloudy (Clear) Urine pH 7.0 (5.0 - 8.0) Ur Specific [place] 1.010 (1.002-1.030) Urine Protein 500 H (Negative) mg/dl Urine Glucose (UA) 250 H (Normal) mg/dl Urine Ketones Negative (Negative) mg/dl Urine Occult Blood 10 H (Negative) /ul Urine Nitrite Positive H (Negative) Urine Bilirubin Negative (Negative) mg/dL Urine Urobilinogen Normal (Normal) mg/dl Ur Leukocyte Esterase 25 H (Negative) /ul Urine RBC 0-5 SEEN (0-5) /hpf Urine WBC 0-5 SEEN (0-5) /hpf Ur Squamous Epith Cells 0-5 SEEN (5-10) /hpf Amorphous Sediment 1+ PHOS Urine Bacteria RARE (None Seen) /hpf Urine Mucus 0 SEEN (<or=2+) /hpf COVID-19 (KAUSHIK) Detected (Not Detect) 06/15/20 06/15/20 06/15/20 Range/Units 19:45 19:45 19:45 WBC 10.1 (4.4-11.0) K/mm3 RBC 3.16 L (4.2-5.4) M/mm3 Hgb 9.2 L (12.0-15.0) g/dL Hct 30.0 L (37-47) % MCV 94.9 (81-99) fL MCH 29.1 (27.0-32.0) pg MCHC 30.7 L (32-36) g/dL RDW Std Deviation 54.9 H (35.1-43.9) fl RDW Coeff of Mika 15.9 H (11.6-14.6) % Plt Count 540 H (150-450) K/mm3 MPV 9.9 (6.2-12.0) fl Immature Gran % (Auto) 0.800 (0.0-0.9) % Neut % (Auto) 75.8 H (47-70) % Lymph % (Auto) 18.6 L (19-41) % [place] % (Auto) 4.2 (0-10) % Eos % (Auto) 0.3 (0-5) % Baso % (Auto) 0.3 (0-1) % Absolute Neuts (auto) 7.7 (2.0-7.7) X10^3/uL Absolute Lymphs (auto) 1.89 (0.83-4.51) X10^3/uL Nucleated RBC % 0 (0-5) % D-Dimer Quant (PE/DVT) 5.71 H* (0.27-0.49) FEU/ug/m Sodium 124 L (136-145) mmol/L Potassium 6.6 H* (3.5-5.1) mmol/L Chloride 90 L (98-107) mmol/L Carbon Dioxide 24.0 (21.0-32.0) mmol/L Anion Gap 10 (5-15) BUN 76 H (7-18) mg/dL Creatinine 7.49 H* (0.55-1.02) mg/dL Estim Creat Clear Calc 5.45 ml/min Est GFR (MDRD) Af Amer 7 L (>60) mL/min Est GFR (MDRD) Non-Af 6 L (>60) mL/min BUN/Creatinine Ratio 10.1 (10-20) RATIO Glucose 129 H (74-106) mg/dL Lactic Acid (0.4-1.9) mmol/L Calcium 8.2 L (8.5-10.1) mg/dL Total Bilirubin 0.40 (0.20-1.00) mg/dL AST 43 H (15-37) U/L ALT 54 (13-56) U/L Alkaline Phosphatase 313 H (45-117) U/L Troponin I 0.329 H (<0.045) ng/mL Total Protein 6.5 (6.4-8.2) g/dL Albumin 2.3 L (3.2-5.0) g/dL Globulin 4.2 (2.2-4.2) g/dL Albumin/Globulin Ratio 0.5 L (0.9-2.4) RATIO Urine Color (Yellow) Urine Clarity (Clear) Urine pH (5.0 - 8.0) Ur Specific [place] (1.002-1.030) Urine Protein (Negative) mg/dl Urine Glucose (UA) (Normal) mg/dl Urine Ketones (Negative) mg/dl Urine Occult Blood (Negative) /ul Urine Nitrite (Negative) Urine Bilirubin (Negative) mg/dL Urine Urobilinogen (Normal) mg/dl Ur Leukocyte Esterase (Negative) /ul Urine RBC (0-5) /hpf Urine WBC (0-5) /hpf Ur Squamous Epith Cells (5-10) /hpf Amorphous Sediment Urine Bacteria (None Seen) /hpf Urine Mucus (<or=2+) /hpf COVID-19 (KAUSHIK) (Not Detect) - Rhythm Strip Rhythm Strip: Sinus bradycardia Rate: 52 Ectopy: None - EKG Initial EKG Interpretation: No Acute Injury Pattern, Sinus Bradycardia, RBBB - Incomplete Prior: Changed Follow-up EKG Interpretation: No Acute Injury Pattern, Sinus Bradycardia, RBBB - QRS appears widened Prior: Changed - Medical Decision Making Patient presents hypotensive and with mild bradycardia, but she was alert, talkative, presenting very well clinically, although she has symptoms of COVID-19. She was given some IV fluids that did help her pressure some. Later in the course, as labs starting to trickle back, her potassium was 6.6 but her initial EKG did not show significant changes or peaked T waves, just sinus bradycardia. Therefore she was given Kayexalate only. Later it was noted that her heart rate went into the 30s and nursing told me that she was more lethargic although easy to arouse. I reevaluated her, I agree with that, her blood pressure was around 80 at the time, so I ordered another EKG. Now her QRS looked a little widened compared to her old 1, so I initially gave her atropine and glucagon since she is on a beta-madhavi. The atropine did not do anything, but the glucagon almost immediately raised her heart rate into the 50s and she felt much better with a blood pressure now of 101 systolic. Additionally, she was given insulin and glucose in addition to calcium gluconate to help treat her hyperkalemia. I then discussed with Dr. Sterling who agrees with getting her dialyzed soon. Prior to that, she is getting CT angiography of the chest to rule out pulmonary embolus given her chest pain. It was negative for pulmonary embolus but did show infiltrate consistent with pneumonia. Discussed with hospitalist, he advises cefepime and vancomycin for the possibility of septic shock, will also bolus her with some more fluid. I performed a repeat assessment on this patient with attention to perfusion, she is clinically doing well, her blood pressure is in the 90s and her heart rate is in the 60s. GCS 15, keenly alert and conversational. Her Covid test returned positive. Will admit to the ICU. - Critical Care Time Critical care time (excluding procedures): 30-74 minutes, Including time spent:, Discussing w/Patient &/or Family/School Psychology Professor, Discussing w/Consultants, Arranging Admission or Transfer, Performing Direct Patient Care at Bedside ED Disposition - Plan for ED Patient: Disposition: Acute Care Hospital [facility] Diagnosis: ESRD (end stage renal disease) on dialysis, Hyperkalemia, Symptomatic bradycardia, Chest pain, Septic shock, Pneumonia due to COVID-19 virus
[2020-06-15 20:22] LABS: Absolute Lymphocyte Count 1.89 X10^3/uL (0.83-4.51); Absolute Neutrophil Count 7.7 X10^3/uL (2.0-7.7); Basophil# 0.03 X10^3/uL; Basophil% 0.3 % (0-1); Eosinophil# 0.03 X10^3/uL; Eosinophils% 0.3 % (0-5); Hemoglobin 9.2 g/dL (12.0-15.0); Lymphocyte # 1.89 X10^3/ul (4.0); Lymphocyte % 18.6 % (19-41); Mean Corp Hgb Conc 30.7 g/dL (32-36); Mean Corpuscular Hgb 29.1 pg (27.0-32.0); Mean Corpuscular Volume 94.9 fL (81-99); Mean Platelet Vol. 9.9 fl (6.2-12.0); Monocyte# 0.43 X10^3/uL; Monocyte% 4.2 % (0-10); NRBC Flagged by Analyzer 0 % (0-5); Neutrophil # 7.68 X10^3/uL (2.7-7.7); Neutrophil % 75.8 % (47-70); Platelet Count 540 K/mm3 (150-450); RBC Distribution Width CV 15.9 % (11.6-14.6); RBC Distribution Width SD 54.9 fl (35.1-43.9); Red Blood Count 3.16 M/mm3 (4.2-5.4); White Blood Count 10.1 K/mm3 (4.4-11.0)
[2020-06-15 20:37] LABS: ALB/GLOB Ratio 0.5 RATIO (0.9-2.4); AST(SGOT) 43 U/L (15-37); Alanine Aminotransfer ALT/SGPT 54 U/L (13-56); Albumin, Serum 2.3 g/dL (3.2-5.0); Alkaline Phosphatase 313 U/L (45-117); Anion Gap 10 (5-15); BUN 76 mg/dL (7-18); BUN/Creat Ratio 10.1 RATIO (10-20); Calcium,Total 8.2 mg/dL (8.5-10.1); Chloride 90 mmol/L (98-107); Creatinine, Serum 7.49 mg/dL (0.55-1.02); EST Glomerular Filtration Rate 6 mL/min (>60); Est Glom Filt Rate - Afr Amer 7 mL/min (>60); Estimated Creatinine Clearance 5.45 ml/min; Globulin 4.2 g/dL (2.2-4.2); Glucose 129 mg/dL (74-106); Potassium 6.6 mmol/L (3.5-5.1); Protein, Total 6.5 g/dL (6.4-8.2); Sodium Level 124 mmol/L (136-145)
[2020-06-15 20:39] LABS: Lactic Acid 2.7 mmol/L (0.4-1.9)
[2020-06-15 20:47] VITALS: BP 81/41; PULSE 36; RESP 12; O2SAT 100
--- NOTE | 2020-06-15 20:50 | RAD_ITS ---
STUDY: X-RAY CHEST REASON FOR EXAM: Female, 64 years old. weakness, loss of taste and smell, cough. + exposure to COVID -- dialysis pt TECHNIQUE: Single frontal view of the chest. COMPARISON: 10/28/2019 FINDINGS: The lungs are clear and expanded. There is no demonstrated pleural abnormality. Stable cardiomediastinal silhouette. Normal mediastinum and christine. Normal visualized pulmonary arteries. Normal visualized aortic arch and descending thoracic aorta. Normal visualized thoracic spine. Bilateral shoulder arthroplasties. There is no demonstrated abnormality of the visualized soft tissue structures of the upper abdomen. RAD/Chest 1 View (Portable) IMPRESSION: No acute pulmonary findings. Electronically Signed: Brayden Gudino MD at 21:31 EDT Tel , Service support ,
[2020-06-15 21:01] LABS: D-Dimer Quantitative (DVT/PE) 5.71 FEU/ug/m (0.27-0.49)
[2020-06-15 21:07] LABS: Mucous, Urine 0 SEEN /hpf (<or=2+)
[2020-06-15 21:21] LABS: Color, Urine Yellow (Yellow); Glucose, Dipstick 250 mg/dl (Normal); Ketone-Dipstick Negative (Negative); Leukocyte Esterase-Dipstick 25 /ul (Negative); Nitrite-Dipstick Positive (Negative); Occult Blood-Urine 10 /ul (Negative); Protein-Dipstick 500 mg/dl (Negative); Urine Bilirubin Dipstick Negative (Negative); Urine Clarity Sl. Cloudy (Clear); Urine Urobilinogen Normal (Normal)
[2020-06-15 21:30] LABS: Amorphous Sediment 1+ PHOS; Bacteria RARE /hpf (None Seen); Red Blood Cells-Urine 0-5 SEEN /hpf (0-5); Squamous Epithelial Cells - UA 0-5 SEEN /hpf (5-10); White Blood Cells 0-5 SEEN /hpf (0-5)
[2020-06-15 22:00] VITALS: BP 67/42; PULSE 31; RESP 18
--- NOTE | 2020-06-15 22:40 | EKG12_ITS ---
Test Reason : REPEAT Blood Pressure : / mmHG Vent. Rate : 032 BPM Atrial Rate : 032 BPM P-R Int : 166 ms QRS Dur : 110 ms QT Int : 600 ms P-R-T Axes : 078 -71 168 degrees QTc Int : 438 ms Marked sinus bradycardia Left axis deviation Right bundle branch block Inferior infarct , age undetermined T wave abnormality, consider lateral ischemia Abnormal ECG Confirmed by RADHA LOZANO, TIMOTHY ([id number]), graphics editor EDIS JACOBS ([id number]) on 06/17/2020 1:48:11 PM Referred By: BB Confirmed By:TIMOTHY GARCIA MD
[2020-06-15 22:41] VITALS: BP 80/42; PULSE 32; RESP 18; O2SAT 100
[2020-06-15] MEDS: Sodium Polystyrene Sulfonate 15 GM/60 ML UDC PO (22:52)
[2020-06-15] MEDS: Glucagon 1 MG/ML Syringe IV (22:59)
[2020-06-15] MEDS: Atropine Sulfate 1 MG/10 ML Syringe 0.5 MG IV (22:59)
[2020-06-15 23:00] VITALS: BP 101/57
[2020-06-15 23:02] VITALS: BP 63/45; PULSE 51; RESP 20; TEMP 35.8; O2SAT 100
--- NOTE | 2020-06-15 23:07 | ED.RN ---
patients updated on patients condition and status. made aware patient will more then likely be admitted tonight
[2020-06-15] MEDS: Dextrose 50%-Water 25 GM/50 ML DISP.SYRIN IV (23:18)
[2020-06-15] MEDS: Insulin Lispro 5 UNIT in Syringe 0 ML 3 UNIT IV (23:19)
[2020-06-15] MEDS: Calcium Gluconate 1 GM/10 ML Vial IV (23:20)
--- NOTE | 2020-06-15 23:40 | CT_ITS ---
STUDY: CTA CHEST REASON FOR EXAM: Female, 64 years old. WEAKNESS WITH LOSS OF TASTE AND SMELL, COUGH. ELEVATED D DIMER. HX OF HTN RADIATION DOSAGE (If Supplied By Facility): CTDIvol = ( 17.82 ) mGy, DLP = ( 519.54 ) mGycm TECHNIQUE: The examination was performed with the intravenous administration of IV 100mL Isovue-370. Post-processing of the angiographic images was performed, with multiplanar reformation and 3D reconstruction. Individualized dose optimization techniques were used for this CT. COMPARISON: 09/07/2019 FINDINGS: Normal enhancement of the main pulmonary artery and right and left pulmonary arteries. Normal enhancement of the bilateral peripheral pulmonary arteries. There is no demonstrated pulmonary embolism. Normal thoracic aorta and visualized great vessels. There is no demonstrated aortic dissection. Cardiomegaly. Normal mediastinum. Normal hilar regions. Normal visualized trachea and bronchi. Right lower lobe pneumonia. Left upper and lower lobe atelectasis. Normal pleura. Normal chest wall structures. Normal osseous structures. [address]/CTA Chest W/WO Contrast IMPRESSION: No demonstrated pulmonary embolism or arterial dissection. Right lower lobe pneumonia. Left upper and lower lobe atelectasis. Electronically Signed: Brayden Gudino MD at 0:09 EDT Tel , Service support ,
[2020-06-15 23:56] LABS: Reflex Lactate? Y
[2020-06-16] VITALS (27 sets, daily range): BP systolic 93–115; BP diastolic 33–95; PULSE 65–97; RESP 11–21; TEMP 35.8–37.1; O2SAT 93–100; BMI 28.8
--- NOTE | 2020-06-16 00:04 | PCM.HP.STD ---
Problem List (1) ESRD (end stage renal disease) on dialysis Status: Acute (2) Hyperkalemia Status: Acute (3) Symptomatic bradycardia Status: Acute (4) Chest pain Status: Acute (5) Septic shock Status: Acute (6) Pneumonia due to COVID-19 virus Status: Acute (7) NSTEMI (non-ST elevated myocardial infarction) Status: Chronic (8) Dialysis patient Status: Chronic (9) Elevated troponin Status: Chronic (10) Congestive heart failure Status: Chronic (11) Rheumatoid arthritis Status: Chronic (12) Amyloidosis Status: Chronic (13) CKD (chronic kidney disease) stage 4, GFR 15-29 ml/min Status: Chronic (14) Renal anasarca Status: Chronic (15) Hyponatremia Status: Acute History of Present Illness Date of Admission: 06/16/20 Chief Complaint: flu-like symptoms The patient is a 64 year old F clinical history of end-stage renal disease who presents emergency department with flulike symptoms that has been going on for 3 to 4 days. Because of progressively worsening symptoms the patient came to the emergency department. Associated with her symptoms is malaise and a productive cough. Further she has weakness. She has a decreased sense of smell. She report that her sense of taste is intact. At emergent department patient was found to be hypotensive and was given fluid bolus. Lactic acid was elevated at 2.7. Reportedly was at an [place] wedding about a month ago where many parties were positive for Covid. Past Medical History Past Medical History (Chronic Problems): Chronic Problems (Last Reviewed 06/16/20 @ 01:[address] Marc Snow MD) NSTEMI (non-ST elevated myocardial infarction) (Chronic) Dialysis patient (Chronic) Elevated troponin (Chronic) Congestive heart failure (Chronic) Rheumatoid arthritis (Chronic) Amyloidosis (Chronic) CKD (chronic kidney disease) stage 4, GFR 15-29 ml/min (Chronic) Renal anasarca (Chronic) Medical History: Medical History (Last Reviewed 06/16/20 @ 07:[address] Marc Snow MD) NSTEMI (non-ST elevated myocardial infarction) (Chronic) I21.4 Dialysis patient (Chronic) Z99.2 Acute kidney injury superimposed on CKD (Inactive) N17.9, N18.9 Elevated troponin (Chronic) R79.89 Congestive heart failure (Chronic) I50.9 Rheumatoid arthritis (Chronic) M06.9 Amyloidosis (Chronic) E85.9 CKD (chronic kidney disease) stage 4, GFR 15-29 ml/min (Chronic) N18.4 Renal anasarca (Chronic) N04.9 Hyponatremia (Acute) E87.1 Allergies No Known Allergies Allergy (Verified 10/28/19 18:42) Home Medications: Ambulatory Orders Medication Instructions Recorded Prednisone 2.5 mg PO BID 01/16/18 Oxycodone HCl 5 mg PO Q6H PRN PRN 09/06/19 ALPRAZolam [Xanax] 0.5 mg PO QHS PRN #0 10/21/19 Aspirin [Aspirin, Baby] 81 mg PO DAILY@0800 10/29/19 Metoprolol(XL)Succ [Toprol Xl 50 mg PO BID 10/29/19 (Beta Azra)] Sevelamer Carbonate 1,600 mg PO TIDCM 10/29/19 Acetaminophen [Tylenol Tablet] 650 mg PO Q6H PRN PRN #30 tab 10/31/19 Ibuprofen [Motrin] 400 mg PO Q6H PRN PRN #30 tab 10/31/19 Surgical History: - - Left forearm AV fistula Psychiatric History: Anxiety, Depression INTERMEDIATE ACCOUNTANT History: No pertinent INTERMEDIATE ACCOUNTANT history Smoking Status: Never smoker - *Family History Maternal History Items: - - Denies known maternal medical history including cardiac history. Paternal History Items: Diabetes, - Review of Systems Constitutional: Reports: Malaise, Weakness, Fatigue. Denies: Weight Change HEENT: Denies: Head Aches, Sinus Congestion, Sinus Drainage Cardiovascular: Denies: Chest Pain, Palpitations Respiratory: Reports: Cough, Shortness of Breath - Mild, Sputum production Gastrointestinal: Denies: Abdominal Pain, Nausea, Vomiting Genitourinary: Denies: Dysuria Musculoskeletal: Denies: Joint Pain, Joint Tenderness Skin: Denies: Rash, Wounds Neurological: Denies: Numbness, Tingling, Focal weakness Psychiatric: Denies: Anxiety, Depression, Homicidal Ideations, Suicidal Ideations Hematologic/ Lymphatic: Denies: Easy Bruising, Easy Bleeding VTE Information - Inpt Only VTE Present on Admission: No VTE Mechan Device Prophylaxis: None VTE Pharm Prophylaxis ordered?: Yes Patient Problems: Active and Suspected Problems (Last Reviewed 06/16/20 @ 01:[address] Marc Snow MD) ESRD (end stage renal disease) on dialysis (Acute) Hyperkalemia (Acute) Symptomatic bradycardia (Acute) Chest pain (Acute) Septic shock (Acute) Pneumonia due to COVID-19 virus (Acute) Hyponatremia (Acute) - Physical Exam Vitals/I&O's: Vital Signs Temp Pulse Resp BP Pulse Ox 96.4 F L 51 L 20 H 63/45 L 100 06/15/20 23:02 06/15/20 23:02 06/15/20 23:02 06/15/20 23:02 06/15/20 23:02 Oxygen Delivery Method Room Air Weight: 82.8 kg Body Mass Index (BMI) 35.6 Finger Stick Blood Glucose 143 Intake and Output for Last 24 Hours 06/14/20 06/15/20 06/16/20 23:59 23:59 23:59 Intake Total 500.05 / 500.05 Balance 500.05 / 500.05 General: Alert, Oriented x3, Cooperative HEENT: Atraumatic, PERRLA, EOMI, Normocephalic Neck: Supple, No JVD, Negative Carotid Bruits Lungs: Clear to auscultation, Normal air movement Cardiovascular: Regular rate, Normal S1, Normal S2, No murmurs Abdomen: Bowel Sounds Present, Soft, Non Tender Extremities: No edema, Capillary Refill Less than 3 Seconds Skin: No rashes, No breakdown Musculoskeletal: No Tenderness to Palpation of Joints or Extremities Neurological: Cranial nerves II-XII grossly intact Psych/Mental Status: Normal Affect, Appropriate Laboratory Results 06/15/20 19:45: WBC 10.1, RBC 3.16 L, Hgb 9.2 L, Hct 30.0 L, MCV 94.9, MCH 29.1, MCHC 30.7 L, RDW Std Deviation 54.9 H, RDW Coeff of Mika 15.9 H, Plt Count 540 H, MPV 9.9, Immature Gran % (Auto) 0.800, Neut % (Auto) 75.8 H, Lymph % (Auto) 18.6 L, [place] % (Auto) 4.2, Eos % (Auto) 0.3, Baso % (Auto) 0.3, Absolute Neuts (auto) 7.7, Absolute Lymphs (auto) 1.89, Nucleated RBC % 0 06/15/20 19:45: D-Dimer Quant (PE/DVT) 5.71 H* 06/15/20 19:45: Sodium 124 L, Potassium 6.6 H*, Chloride 90 L, Carbon Dioxide 24.0, Anion Gap 10, BUN 76 H, Creatinine 7.49 H*, Estim Creat Clear Calc 5.45, Est GFR (MDRD) Af Amer 7 L, Est GFR (MDRD) Non-Af 6 L, BUN/Creatinine Ratio 10.1, Glucose 129 H, Calcium 8.2 L, Total Bilirubin 0.40, AST 43 H, ALT 54, Alkaline Phosphatase 313 H, Troponin I 0.329 H, Total Protein 6.5, Albumin 2.3 L, Globulin 4.2, Albumin/Globulin Ratio 0.5 L 06/15/20 19:45: Lactic Acid 2.7 H* 06/15/20 20:00: COVID-19 (KAUSHIK) Pending 06/15/20 20:45: Urine Color Yellow, Urine Clarity Sl. Cloudy, Urine pH 7.0, Ur Specific [place] 1.010, Urine Protein 500 H, Urine Glucose (UA) 250 H, Urine Ketones Negative, Urine Occult Blood 10 H, Urine Nitrite Positive H, Urine Bilirubin Negative, Urine Urobilinogen Normal, Ur Leukocyte Esterase 25 H, Urine RBC 0-5 SEEN, Urine WBC 0-5 SEEN, Ur Squamous Epith Cells 0-5 SEEN, Amorphous Sediment 1+ PHOS, Urine Bacteria RARE, Urine Mucus 0 SEEN Assessment/Plan All Active Problems (Last Reviewed 06/16/20 @ 01:[address] Marc Snow MD) ESRD (end stage renal disease) on dialysis (Acute) Hyperkalemia (Acute) Symptomatic bradycardia (Acute) Chest pain (Acute) Septic shock (Acute) Pneumonia due to COVID-19 virus (Acute) Hyponatremia (Acute) SARS Covid pneumonia. Strep pneumonia and Legionella urine antigen ordered. D-dimer was elevated. Follow-up CTPA showed right lower lobe pneumonia. Discussed emergent department and will start patient on vancomycin and cefepime. Vancomycin cefepime continue inpatient Patient is on prednisone at home for rheumatoid arthritis. Discussed emergent department doctor to give hydrocortisone. Hydrocortisone continued inpatient. Gore Stitcher consult and criminal investigator consult COVID-19 was positive at emergency department. Trend CBC and BMP. Hyperkalemia and bradycardia Patient was noted to have EKG changes and was symptomatic. Received calcium gluconate; insulin and dextrose and atropine. Emergency department doctor discussed with higher education administrator for urgent dialysis. Inpatient nephrology consult. Hypotension Likely secondary to infection. No other criteria of SIRS. Received IV bolus at the emergency department. Hold home blood pressure medication for now. Elevated troponin Chronic Trend. Hyponatremia Likely secondary to pulmonary infection and end-stage renal disease. Trend BMP. DVT prophylaxis Subcutaneous heparin ordered. Inpatient E&M: 10170 Init Hosp L3
[2020-06-16 01:49] LABS: Lactic Acid 3.2 mmol/L (0.4-1.9)
[2020-06-16 03:33] LABS: M R Staph aureus DNA By PCR Negative (Negative); Probe Check PASS; Specimen Processing Control PASS
--- NOTE | 2020-06-16 04:34 | DIALYSIS ---
[facility] Hemodialysis tx completed x 2 hours on 1K bath without complications. Pt tolerated tx well, fluid removed 1,500ml using crit-line monitor. Verbal report given to BELKYS De La [place]ega post tx. Next dialysis tx per nephrology.
[2020-06-16] MEDS: Vancomycin IV 1,000 MG/200 ML BAG 200 MG IV (05:00)
[2020-06-16 05:37] LABS: Absolute Lymphocyte Count 2.28 X10^3/uL (0.83-4.51); Absolute Neutrophil Count 6.1 X10^3/uL (2.0-7.7); Basophil# 0.03 X10^3/uL; Basophil% 0.3 % (0-1); Eosinophil# 0.02 X10^3/uL; Eosinophils% 0.2 % (0-5); Hematocrit 28.7 % (37-47); Hemoglobin 9.3 g/dL (12.0-15.0); Lymphocyte # 2.28 X10^3/ul (4.0); Lymphocyte % 25.3 % (19-41); Mean Corp Hgb Conc 32.4 g/dL (32-36); Mean Corpuscular Hgb 29.4 pg (27.0-32.0); Mean Corpuscular Volume 90.8 fL (81-99); Mean Platelet Vol. 9.6 fl (6.2-12.0); Monocyte# 0.38 X10^3/uL; Monocyte% 4.2 % (0-10); NRBC Flagged by Analyzer 0.2 % (0-5); Neutrophil # 6.14 X10^3/uL (2.7-7.7); Neutrophil % 68.3 % (47-70); POSITIVE COUNT YES; Platelet Count 442 K/mm3 (150-450); RBC Distribution Width CV 15.7 % (11.6-14.6); RBC Distribution Width SD 51.9 fl (35.1-43.9); Red Blood Count 3.16 M/mm3 (4.2-5.4)
[2020-06-16] MEDS: Heparin Injection (Vial) 5,000 UNIT/ML VIAL 5000 UNIT SC ×2 (05:37→14:05)
[2020-06-16 05:40] LABS: Differential Indicated SCAN CRITERIA MET
[2020-06-16 05:57] LABS: ALB/GLOB Ratio 0.6 RATIO (0.9-2.4); AST(SGOT) 95 U/L (15-37); Alanine Aminotransfer ALT/SGPT 68 U/L (13-56); Albumin, Serum 2.4 g/dL (3.2-5.0); Alkaline Phosphatase 305 U/L (45-117); Anion Gap 11 (5-15); BUN 44 mg/dL (7-18); BUN/Creat Ratio 9.5 RATIO (10-20); Chloride 93 mmol/L (98-107); Creatinine, Serum 4.64 mg/dL (0.55-1.02); EST Glomerular Filtration Rate 10 mL/min (>60); Est Glom Filt Rate - Afr Amer 12 mL/min (>60); Estimated Creatinine Clearance 11.47 ml/min; Globulin 4.2 g/dL (2.2-4.2); Glucose 66 mg/dL (74-106); Potassium 3.8 mmol/L (3.5-5.1); Protein, Total 6.6 g/dL (6.4-8.2); Sodium Level 132 mmol/L (136-145)
[2020-06-16 05:59] LABS: Differential Comment SCANNED
[2020-06-16 06:30] LABS: Platelet Estimate ADEQUATE (ADEQ)
[2020-06-16 06:31] LABS: Platelet Morphology CLUMPED
--- NOTE | 2020-06-16 06:39 | PCM.RX.CS ---
Consult Pharmacy has been consulted to manage selected antiobiotic: Vancomycin Type of Consult: New start Suspected Infection: Sepsis Labs: Sodium 132 mmol/L (136-145) L 06/16/20 05:20 Potassium 3.8 mmol/L (3.5-5.1) 06/16/20 05:20 Chloride 93 mmol/L (98-107) L 06/16/20 05:20 Carbon Dioxide 28.0 mmol/L (21.0-32.0) 06/16/20 05:20 Anion Gap 11 (5-15) 06/16/20 05:20 BUN 44 mg/dL (7-18) H 06/16/20 05:20 Creatinine 4.64 mg/dL (0.55-1.02) H 06/16/20 05:20 Est GFR (MDRD) Af Amer 12 mL/min (>60) L 06/16/20 05:20 Est GFR (MDRD) Non-Af 10 mL/min (>60) L 06/16/20 05:20 BUN/Creatinine Ratio 9.5 RATIO (10-20) L 06/16/20 05:20 Glucose 66 mg/dL (74-106) L 06/16/20 05:20 Microbiology: Microbiology 06/15/20 20:45 Urine, Clean Catch Legionella Antigen - Final 06/15/20 20:45 Urine, Clean Catch Streptococcus pneumoniae Antigen (M - Final Goal Trough: 15-20 mcg/mL Pharmacy Plan for Drug Dosing: Pharmacy Service will continue to monitor and adjust dosing as required. Medications Vancomycin HCl () 500 mg in 100 mls @ 100 mls/hr IV X1 ONE Stop: 06/16/20 10:59 Discontinued Medications Vancomycin HCl (Vancomycin) 1,000 mg in 200 mls @ 200 mls/hr IV X1 ONE Stop: 06/16/20 01:29 Last Admin: 06/16/20 06:00 Dose: Infused Documented by: Follow-Up Labs: Trough Vancomycin Labs to be done on [date and time ordered]: PRE DIALYSIS ON 06/18
[2020-06-16] MEDS: Hydrocortisone Sod Succinate 100 MG/2 ML Vial 50 MG IV (07:59)
[2020-06-16] MEDS: guaiFENesin 1,200 MG Tablet 1200 MG PO (08:00)
--- NOTE | 2020-06-16 08:57 | CON.PCM_ITS ---
Problem List (1) Generalized weakness Status: Inactive (2) Acute encephalopathy Status: Inactive (3) ESRD (end stage renal disease) on dialysis Status: Acute (4) Hyperkalemia Status: Acute (5) Symptomatic bradycardia Status: Acute (6) Pneumonia due to COVID-19 virus Status: Acute (7) Congestive heart failure Status: Chronic (8) Rheumatoid arthritis Status: Chronic (9) Amyloidosis Status: Chronic (10) CKD (chronic kidney disease) stage 4, GFR 15-29 ml/min Status: Chronic Reason for Consult Date of Consultation: 06/16/20 Reason for Consultation: Symptomatic bradycardia History of Present Illness: The patient is a 64 year old F with past medical history listed below, who presented [facility] on 06/15/2020 complaining of a 4 to 5-day gradual onset of malaise, headaches, dysuria and a dry cough. Patient reportedly had felt like I had the flu. Patient states she has not been around anyone with COVID-19, but does have end-stage renal disease and goes to dialysis Monday, and Saturdays. Patient states she has not missed any dialysis sessions and is not having a lot of dyspnea on presentation. However, patient reported some chest discomfort earlier in the day and was reporting pleuritic type chest pain. Patient has had some dysuria and hematuria off and on for the past couple days. In the ER, patient was hypotensive and mild bradycardic. Patient was talkative. Patient received some IV fluids with some improvement. Patient's potassium was elevated at 6.6, but EKG was reported to be relatively normal. Patient did receive atropine with no response, but glucagon was helpful. Patient also received calcium gluconate. Patient was emergently dialyzed with improvement. Patient was placed on antibiotics for septic shock and admitted to the intensive care unit for further evaluation. Patient was found to be Covid positive, so was placed in respiratory isolation. Since being in the intensive care unit, patient states that she feels well. Patient received dialysis overnight and states that she feels her normal this morning. Patient is not reporting any chest pain, abdominal pain or palpitations. Patient states that she is unaware of where she would have contracted COVID-19 as she has no family members that are currently ill. Patient did have 1-1/2 L removed with dialysis. Patient is on metoprolol XL as an outpatient along with low-dose prednisone therapy. Review of systems otherwise negative from a constitutional, HEENT, respiratory, cardiovascular, GI, genitourinary, musculoskeletal, skin, neurologic, psychiatric and hematologic system unless stated above. Past Medical History Past Medical History (Chronic Problems): Chronic Problems (Last Reviewed 06/16/20 @ 07:[address] Marc Snow MD) NSTEMI (non-ST elevated myocardial infarction) (Chronic) Dialysis patient (Chronic) Elevated troponin (Chronic) Congestive heart failure (Chronic) Rheumatoid arthritis (Chronic) Amyloidosis (Chronic) CKD (chronic kidney disease) stage 4, GFR 15-29 ml/min (Chronic) Renal anasarca (Chronic) Medical History: Medical History (Last Reviewed 06/16/20 @ 07:[address] Marc Snow MD) NSTEMI (non-ST elevated myocardial infarction) (Chronic) I21.4 Dialysis patient (Chronic) Z99.2 Acute kidney injury superimposed on CKD (Inactive) N17.9, N18.9 Elevated troponin (Chronic) R79.89 Congestive heart failure (Chronic) I50.9 Rheumatoid arthritis (Chronic) M06.9 Amyloidosis (Chronic) E85.9 CKD (chronic kidney disease) stage 4, GFR 15-29 ml/min (Chronic) N18.4 Renal anasarca (Chronic) N04.9 Hyponatremia (Acute) E87.1 Allergies No Known Allergies Allergy (Verified 10/28/19 18:42) Home Medications: Ambulatory Orders Medication Instructions Recorded Prednisone 2.5 mg PO BID 01/16/18 Oxycodone HCl 5 mg PO Q6H PRN PRN 09/06/19 ALPRAZolam [Xanax] 0.5 mg PO QHS PRN #0 10/21/19 Aspirin [Aspirin, Baby] 81 mg PO DAILY@0800 10/29/19 Metoprolol(XL)Succ [Toprol Xl 50 mg PO BID 10/29/19 (Beta Azra)] Sevelamer Carbonate 1,600 mg PO TIDCM 10/29/19 Acetaminophen [Tylenol Tablet] 650 mg PO Q6H PRN PRN #30 tab 10/31/19 Ibuprofen [Motrin] 400 mg PO Q6H PRN PRN #30 tab 10/31/19 Surgical History: - - Left forearm AV fistula Psychiatric History: Anxiety, Depression [employer]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 Paternal History Items: Diabetes, - Review of Systems Comment: See HPI Patient Problems: Active and Suspected Problems (Last Reviewed 06/16/20 @ 07:[address] Marc Snow MD) ESRD (end stage renal disease) on dialysis (Acute) Hyperkalemia (Acute) Symptomatic bradycardia (Acute) Chest pain (Acute) Septic shock (Acute) Pneumonia due to COVID-19 virus (Acute) Hyponatremia (Acute) Objective: All imaging was personally reviewed. Right lower lobe infiltrate and atelectasis are appreciated. [place] of the right lower lobe pneumonia appears to be a slight overcall. This is in the dependent area and appears to be related to atelectasis more than infiltrate. Patient did not have any PE. Echocardiogram completed earlier this year showed an EF of 55 to 60% with a m oderately enlarged right atrium and a pulmonary artery pressure of 54 mmHg. - Physical Exam Vitals/I&O's: Vital Signs Temp Pulse Resp BP Pulse Ox 36.7 C 95 18 112/69 97 06/16/20 08:00 06/16/20 08:00 06/16/20 08:00 06/16/20 08:00 06/16/20 08:00 Oxygen Delivery Method Room Air Weight: 81 kg Body Mass Index (BMI) 28.8 Finger Stick Blood Glucose 143 Intake and Output for Last 24 Hours 06/14/20 06/15/20 06/16/20 23:59 23:59 23:59 Intake Total 500.05 / 500.05 750 / 750 Balance 500.05 / 500.05 750 / 750 General: Alert, Oriented x3, Cooperative, No apparent distress, - - Appears older than stated age. Speaking in full sentences. HEENT: Atraumatic, PERRLA, EOMI, Normocephalic, - - Collateral icterus or injection noted Oral: Moist Mucosa, No Gingival or Mucosal Lesions/ Ulcerations Neck: Supple, No JVD, No Nodes, Trachea Midline Lungs: Clear to auscultation, Normal air movement, No rhonchi, No wheeze, No rales, - - Symmetric expansion. No dullness to percussion. Cardiovascular: Regular rate, Regular Rhythm, Normal S1, Normal S2, No murmurs, No rub noted, No Gallop Abdomen: Bowel Sounds Present, Soft, Non Tender, Non-Distended Extremities: No clubbing, No cyanosis, No edema, - - Significant arthritic changes noted. Skin: No rashes, No breakdown Musculoskeletal: No Tenderness to Palpation of Joints or Extremities, Arthritic Changes Lymphatic: No Cervical, Supraclavicular, or Inguinal Adenopathy Neurological: Cranial nerves II-XII grossly intact, Neuro grossly intact, Motor Exam 5/5 strength throughout Psych/Mental Status: Alert and oriented to time, place, person, mood and affect Microbiology Past 72 Hours 06/15/20 20:45 Urine, Clean Catch Legionella Antigen - Final 06/15/20 20:45 Urine, Clean Catch Streptococcus pneumoniae Antigen (M - Final Laboratory Results 06/15/20 00:55: Lactic Acid 3.2 H* 06/15/20 19:45: WBC 10.1, RBC 3.16 L, Hgb 9.2 L, Hct 30.0 L, MCV 94.9, MCH 29.1, MCHC 30.7 L, RDW Std Deviation 54.9 H, RDW Coeff of Mika 15.9 H, Plt Count 540 H , MPV 9.9, Immature Gran % (Auto) 0.800, Neut % (Auto) 75.8 H, Lymph % (Auto) 18.6 L, [place]ukes % (Auto) 4.2, Eos % (Auto) 0.3, Baso % (Auto) 0.3, Absolute Neuts (auto) 7.7, Absolute Lymphs (auto) 1.89, Nucleated RBC % 0 06/15/20 19:45: D-Dimer Quant (PE/DVT) 5.71 H* 06/15/20 19:45: Sodium 124 L, Potassium 6.6 H*, Chloride 90 L, Carbon Dioxide 24.0, Anion Gap 10, BUN 76 H, Creatinine 7.49 H*, Estim Creat Clear Calc 5.45, Est GFR (MDRD) Af Amer 7 L, Est GFR (MDRD) Non-Af 6 L, BUN/Creatinine Ratio 10.1, Glucose 129 H, Calcium 8.2 L, Total Bilirubin 0.40, AST 43 H, ALT 54, Alkaline Phosphatase 313 H, Troponin I 0.329 H, Total Protein 6.5, Albumin 2.3 L , Globulin 4.2, Albumin/Globulin Ratio 0.5 L 06/15/20 19:45: Lactic Acid 2.7 H* 06/15/20 20:00: COVID-19 ([facility]) Detected 06/15/20 20:45: Urine Color Yellow, Urine Clarity Sl. Cloudy, Urine pH 7.0, Ur Specific [place] 1.010, Urine Protein 500 H, Urine Glucose (UA) 250 H, Urine Ketones Negative, Urine Occult Blood 10 H, Urine Nitrite Positive H, Urine Bilirubin Negative, Urine Urobilinogen Normal, Ur Leukocyte Esterase 25 H, Urine RBC 0-5 SEEN, Urine WBC 0-5 SEEN, Ur Squamous Epith Cells 0-5 SEEN, Amorphous Sediment 1+ PHOS, Urine Bacteria RARE, Urine Mucus 0 SEEN 06/16/20 02:00: MRSA (PCR) Negative 06/16/20 02:05: Troponin I 0.363 H 06/16/20 05:20: WBC 9.0, RBC 3.16 L, Hgb 9.3 L, Hct 28.7 L, MCV 90.8, MCH 29.4, MCHC 32.4 D, RDW Std Deviation 51.9 H, RDW Coeff of Mika 15.7 H, Plt Count 442, MPV 9.6, Immature Gran % (Auto) 1.700 H, Neut % (Auto) 68.3, Lymph % (Auto) 25.3, Dukes % (Auto) 4.2, Eos % (Auto) 0.2, Baso % (Auto) 0.3, Absolute Neuts (auto) 6.1, Absolute Lymphs (auto) 2.28, Nucleated RBC % 0.2, Differential Comment SCANNED, Platelet Estimate ADEQUATE, Plt Morphology Comment CLUMPED 06/16/20 05:20: Sodium 132 L, Potassium 3.8, Chloride 93 L, Carbon Dioxide 28.0, Anion Gap 11, BUN 44 H, Creatinine 4.64 H, Estim Creat Clear Calc 11.47, Est GFR (MDRD) Af Amer 12 L, Est GFR (MDRD) Non-Af 10 L, BUN/Creatinine Ratio 9.5 L, Glucose 66 L, Calcium 8.0 L, Total Bilirubin 0.40, AST 95 H, ALT 68 H, Alkaline Phosphatase 305 H, Total Protein 6.6, Albumin 2.4 L, Globulin 4.2, Albumin/Globulin Ratio 0.6 L 06/16/20 05:20: Troponin I 0.398 H Current Medications Acetaminophen (Acetaminophen 325 Mg Tablet) 650 mg PO Q6H PRN PRN PRN Reason: Pain Score 1-10/Temp > 100.7 F Guaifenesin (Guaifenesin 1,200 Mg Tablet) 1,200 mg PO BID [facility] Last Admin: 06/16/20 08:00 Dose: 1,200 mg Documented by: Heparin Sodium (Porcine) (Heparin Injection (Vial) 5,000 Unit/Ml Vial) 5,000 unit SC Q8 [facility] Last Admin: 06/16/20 05:37 Dose: 5,000 unit Documented by: Hydrocortisone Sodium Succinate (Hydrocortisone Sod Succinate 100 Mg/2 Ml Vial) 50 mg IV Q8 [facility] Last Admin: 06/16/20 07:59 Dose: 50 mg Documented by: Cefepime HCl 2 gm/ Sodium (Chloride) 100 mls @ 200 mls/hr IV Q8 [facility] Last Infusion: 06/16/20 08:53 Dose: Infused Documented by: Vancomycin IV Pharmacy to Dose (1 ea/ Sodium Chloride) 500 mls @ 250 mls/hr IV X1 PRN; Protocol PRN Reason: Rx to Dose Sodium Chloride () 250 mls @ 15 mls/hr IV .[id number] PRN PRN Reason: Saline Flush Sodium Chloride () 250 mls @ 15 mls/hr IV .[id number] PRN PRN Reason: Additional IVPB Infusion Vancomycin HCl () 500 mg in 100 mls @ 100 mls/hr IV X1 ONE Stop: 06/16/20 10:59 Melatonin (Melatonin 3 Mg Tablet) 3 mg PO QHS PRN PRN PRN Reason: INSOMNIA Ondansetron HCl (Ondansetron 4 Mg/2 Ml Vial) 4 mg IV Q8H PRN PRN PRN Reason: NAUSEA/VOMITING Prochlorperazine Edisylate (Prochlorperazine 10 Mg/2 Ml Vial) 5 mg IV Q4H PRN PRN PRN Reason: Breakthrough Nausea/Vomiting Sodium Chloride (0.9% Saline Lock 10 Ml Syringe) 10 - 40 ml IV UD PRN PRN Reason: SALINE FLUSH Clinical Impression(s) from Imaging Studies Chest X-Ray 06/15/20 20:50 IMPRESSION: No acute pulmonary findings. Electronically Signed: Brayden Gudino MD at 21:31 EDT Tel , Service support , Chest CTA 06/15/20 23:40 IMPRESSION: No demonstrated pulmonary embolism or arterial dissection. Right lower lobe pneumonia. Left upper and lower lobe atelectasis. Electronically Signed: Brayden Gudino MD at 0:09 EDT Tel , Service support , Assessment/Plan Active and Suspected Problems (Last Reviewed 06/16/20 @ 07:[address] Marc Snow MD) ESRD (end stage renal disease) on dialysis (Acute) Hyperkalemia (Acute) Symptomatic bradycardia (Acute) Chest pain (Acute) Septic shock (Acute) Pneumonia due to COVID-19 virus (Acute) Hyponatremia (Acute) RECOMMENDATIONS: 1. Consider decreasing Lopressor dosing 2. Arrange for pulse oximeter at home 3. Consider discharge with pulse ox monitoring 4. Increase activity as tolerated IMPRESSIONS: 1. Symptomatic bradycardia Ankle suspicion for accumulation of beta-azra leading to symptomatic bradycardia. This would also be affected by hyperkalemia, but no EKG changes were noted. Patient did respond to glucagon and hemodialysis. Patient appears to be hemodynamically stable on room air at this time. 2. COVID-19 positive Patient has come back Covid positive. Multiple people in the community have also come back Covid positive. Unclear onset of symptoms. Patient is currently on room air and tolerating well. Likely not necessary to initiate remdesivir convalescent serum from my perspective. Patient can likely be d ischarged with a pulse oximeter to monitor oxygen saturations. If patient requires supplemental oxygen to keep saturations greater than 90%, then can readdress as a new evaluation into the hospital. 3. End-stage renal disease/hypotension/hyponatremia/rheumatoid arthritis/chronic immunosuppression Applicators care, management, recovery and prognosis. Likely okay to reinitiate baseline prednisone therapy. Patient has received hemodialysis. This can be likely completed on normal schedule per nephrology. Inpatient E&M: [id number] Init Hosp L3
--- NOTE | 2020-06-16 10:22 | CASEMGMT ---
RN CM Note: Attempted call to patient's room x 2, no answer. Requested nurse assist pt to have phone by her for another call later. Attempted call to - message left requesting call back to discuss discharge today and recommendation by physician for pulse oximeter. -Call to [facility]. Pulse oximetry costs $55.00 and is not available for delivery. -Call to [facility]. Pulse oximetry costs $50.00 and is not available for delivery. -Print out with phone numbers given to nurse to give to patient. Laury RUVALCABA RN ACM
[2020-06-16] MEDS: Acetaminophen 325 MG Tablet 650 MG PO ×2 (11:05→17:05)
--- NOTE | 2020-06-16 14:11 | PCM.CONS.R ---
Problem List (1) ESRD (end stage renal disease) on dialysis Status: Acute (2) Hyperkalemia Status: Acute Consultation - Renal 06/16/20 PCP/ Referring MD: Requesting physician: [] Primary care physician: Dr. Jabier Arboleda DO Reason for Consultation:: ESRD - History of Present Illness History of Present Illness: The patient is a 64 year old F admitted to hospital with flu like symptoms. tested positive for COVID. was emergently dialyzed last night due to hyperkalemia. feels ok today. breathing is acceptable - Allergies Allergies: Allergies No Known Allergies Allergy (Verified 10/28/19 18:42) - Current Medications Current Medications: Current Medications Acetaminophen (Acetaminophen 325 Mg Tablet) 650 mg PO Q6H PRN PRN PRN Reason: Pain Score 1-10/Temp > 100.7 F Last Admin: 06/16/20 11:05 Dose: 650 mg Documented by: Guaifenesin (Guaifenesin 1,200 Mg Tablet) 1,200 mg PO BID [facility] Last Admin: 06/16/20 08:00 Dose: 1,200 mg Documented by: Heparin Sodium (Porcine) (Heparin Injection (Vial) 5,000 Unit/Ml Vial) 5,000 unit SC Q8 [facility] Last Admin: 06/16/20 14:05 Dose: 5,000 unit Documented by: Sodium Chloride () 250 mls @ 15 mls/hr IV .[id number] PRN PRN Reason: Saline Flush Sodium Chloride () 250 mls @ 15 mls/hr IV .[id number] PRN PRN Reason: Additional IVPB Infusion Melatonin (Melatonin 3 Mg Tablet) 3 mg PO QHS PRN PRN PRN Reason: INSOMNIA Ondansetron HCl (Ondansetron 4 Mg/2 Ml Vial) 4 mg IV Q8H PRN PRN PRN Reason: NAUSEA/VOMITING Prednisone (Prednisone 5 Mg Tablet) 2.5 mg PO DAILY@0800 [facility] Prochlorperazine Edisylate (Prochlorperazine 10 Mg/2 Ml Vial) 5 mg IV Q4H PRN PRN PRN Reason: Breakthrough Nausea/Vomiting Sodium Chloride (0.9% Saline Lock 10 Ml Syringe) 10 - 40 ml IV UD PRN PRN Reason: SALINE FLUSH - Past Medical History Past Medical History (Chronic Problems): Chronic Problems (Last Reviewed 06/16/20 @ 07:[address] Marc Snow MD) NSTEMI (non-ST elevated myocardial infarction) (Chronic) Dialysis patient (Chronic) Elevated troponin (Chronic) Congestive heart failure (Chronic) Rheumatoid arthritis (Chronic) Amyloidosis (Chronic) CKD (chronic kidney disease) stage 4, GFR 15-29 ml/min (Chronic) Renal anasarca (Chronic) - Past Surgical History Surgical History: - - Left forearm AV fistula - Social History Smoking Status: Never smoker - Family History Maternal History Items: - - Denies known maternal medical history including cardiac history. Paternal History Items: Diabetes, - Review of Systems Constitutional: Denies: Chills, Fever, Weight Change HEENT: Denies: Head Aches, Sinus Congestion, Sinus Drainage Cardiovascular: Denies: Chest Pain, Palpitations Respiratory: Denies: Cough, Shortness of breath at rest, Sputum production Gastrointestinal: Denies: Abdominal Pain, Nausea, Vomiting Genitourinary: Denies: Dysuria Musculoskeletal: Denies: Joint Pain, Joint Tenderness Skin: Denies: Rash, Wounds Neurological: Denies: Numbness, Tingling, Focal weakness Psychiatric: Denies: Anxiety, Depression, Homicidal Ideations, Suicidal Ideations Hematologic/ Lymphatic: Denies: Easy Bruising, Easy Bleeding Patient Problems: Active and Suspected Problems (Last Reviewed 06/16/20 @ 07:[address] Marc Snow MD) ESRD (end stage renal disease) on dialysis (Acute) Hyperkalemia (Acute) Symptomatic bradycardia (Acute) Chest pain (Acute) Septic shock (Acute) Pneumonia due to COVID-19 virus (Acute) Hyponatremia (Acute) - Physical Exam Vitals/I&O's: Vital Signs Temp Pulse Resp BP Pulse Ox 97.8 F 92 16 104/65 98 06/16/20 11:45 06/16/20 13:00 06/16/20 13:00 06/16/20 13:00 06/16/20 13:00 Oxygen Delivery Method Room Air Weight: 81 kg Body Mass Index (BMI) 28.8 Finger Stick Blood Glucose 143 Intake and Output for Last 24 Hours 06/14/20 06/15/20 06/16/20 23:59 23:59 23:59 Intake Total 500.05 / 500.05 1310 / 1310 Balance 500.05 / 500.05 1310 / 1310 Comment: exam minimized due to JOSEID, kwadwo staff. appears alert awake. Microbiology Past 72 Hours 06/15/20 20:45 Urine, Clean Catch Legionella Antigen - Final 06/15/20 20:45 Urine, Clean Catch Streptococcus pneumoniae Antigen (M - Final Laboratory Results 06/15/20 00:55: Lactic Acid 3.2 H* 06/15/20 19:45: WBC 10.1, RBC 3.16 L, Hgb 9.2 L, Hct 30.0 L, MCV 94.9, MCH 29.1, MCHC 30.7 L, RDW Std Deviation 54.9 H, RDW Coeff of Mika 15.9 H, Plt Count 540 H, MPV 9.9, Immature Gran % (Auto) 0.800, Neut % (Auto) 75.8 H, Lymph % (Auto) 18.6 L, [place] % (Auto) 4.2, Eos % (Auto) 0.3, Baso % (Auto) 0.3, Absolute Neuts (auto) 7.7, Absolute Lymphs (auto) 1.89, Nucleated RBC % 0 06/15/20 19:45: D-Dimer Quant (PE/DVT) 5.71 H* 06/15/20 19:45: Sodium 124 L, Potassium 6.6 H*, Chloride 90 L, Carbon Dioxide 24.0, Anion Gap 10, BUN 76 H, Creatinine 7.49 H*, Estim Creat Clear Calc 5.45, Est GFR (MDRD) Af Amer 7 L, Est GFR (MDRD) Non-Af 6 L, BUN/Creatinine Ratio 10.1, Glucose 129 H, Calcium 8.2 L, Total Bilirubin 0.40, AST 43 H, ALT 54, Alkaline Phosphatase 313 H, Troponin I 0.329 H, Total Protein 6.5, Albumin 2.3 L, Globulin 4.2, Albumin/Globulin Ratio 0.5 L 06/15/20 19:45: Lactic Acid 2.7 H* 06/15/20 20:00: COVID-19 ([place]) Detected 06/15/20 20:45: Urine Color Yellow, Urine Clarity Sl. Cloudy, Urine pH 7.0, Ur Specific [place] 1.010, Urine Protein 500 H, Urine Glucose (UA) 250 H, Urine Ketones Negative, Urine Occult Blood 10 H, Urine Nitrite Positive H, Urine Bilirubin Negative, Urine Urobilinogen Normal, Ur Leukocyte Esterase 25 H, Urine RBC 0-5 SEEN, Urine WBC 0-5 SEEN, Ur Squamous Epith Cells 0-5 SEEN, Amorphous Sediment 1+ PHOS, Urine Bacteria RARE, Urine Mucus 0 SEEN 06/16/20 02:00: MRSA (PCR) Negative 06/16/20 02:05: Troponin I 0.363 H 06/16/20 05:20: WBC 9.0, RBC 3.16 L, Hgb 9.3 L, Hct 28.7 L, MCV 90.8, MCH 29.4, MCHC 32.4 D, RDW Std Deviation 51.9 H, RDW Coeff of Mika 15.7 H, Plt Count 442, MPV 9.6, Immature Gran % (Auto) 1.700 H, Neut % (Auto) 68.3, Lymph % (Auto) 25.3, [place]bert % (Auto) 4.2, Eos % (Auto) 0.2, Baso % (Auto) 0.3, Absolute Neuts (auto) 6.1, Absolute Lymphs (auto) 2.28, Nucleated RBC % 0.2, Differential Comment SCANNED, Platelet Estimate ADEQUATE, Plt Morphology Comment CLUMPED 06/16/20 05:20: Sodium 132 L, Potassium 3.8, Chloride 93 L, Carbon Dioxide 28.0, Anion Gap 11, BUN 44 H, Creatinine 4.64 H, Estim Creat Clear Calc 11.47, Est GFR (MDRD) Af Amer 12 L, Est GFR (MDRD) Non-Af 10 L, BUN/Creatinine Ratio 9.5 L, Glucose 66 L, Calcium 8.0 L, Total Bilirubin 0.40, AST 95 H, ALT 68 H, Alkaline Phosphatase 305 H, Total Protein 6.6, Albumin 2.4 L, Globulin 4.2, Albumin/Globulin Ratio 0.6 L 06/16/20 05:20: Troponin I 0.398 H Current Medications Acetaminophen (Acetaminophen 325 Mg Tablet) 650 mg PO Q6H PRN PRN PRN Reason: Pain Score 1-10/Temp > 100.7 F Last Admin: 06/16/20 11:05 Dose: 650 mg Documented by: Guaifenesin (Guaifenesin 1,200 Mg Tablet) 1,200 mg PO BID [facility] Last Admin: 06/16/20 08:00 Dose: 1,200 mg Documented by: Heparin Sodium (Porcine) (Heparin Injection (Vial) 5,000 Unit/Ml Vial) 5,000 unit SC Q8 [facility] Last Admin: 06/16/20 14:05 Dose: 5,000 unit Documented by: Sodium Chloride () 250 mls @ 15 mls/hr IV .[id number] PRN PRN Reason: Saline Flush Sodium Chloride () 250 mls @ 15 mls/hr IV .[id number] PRN PRN Reason: Additional IVPB Infusion Melatonin (Melatonin 3 Mg Tablet) 3 mg PO QHS PRN PRN PRN Reason: INSOMNIA Ondansetron HCl (Ondansetron 4 Mg/2 Ml Vial) 4 mg IV Q8H PRN PRN PRN Reason: NAUSEA/VOMITING Prednisone (Prednisone 5 Mg Tablet) 2.5 mg PO DAILY@0800 [facility] Prochlorperazine Edisylate (Prochlorperazine 10 Mg/2 Ml Vial) 5 mg IV Q4H PRN PRN PRN Reason: Breakthrough Nausea/Vomiting Sodium Chloride (0.9% Saline Lock 10 Ml Syringe) 10 - 40 ml IV UD PRN PRN Reason: SALINE FLUSH Assessment/Plan All Active Problems (Last Reviewed 06/16/20 @ 07:[address] Marc Snow MD) ESRD (end stage renal disease) on dialysis (Acute) Hyperkalemia (Acute) Symptomatic bradycardia (Acute) Chest pain (Acute) Septic shock (Acute) Pneumonia due to COVID-19 virus (Acute) Hyponatremia (Acute) ESRD. HD today. dw staff. see orders COVID pneumonia. treatment as per medicine team hyperkalemia. better after HD dw staff and Dr Smith repeat labs are right after HD hence may be skewed a little bit. since she is covid positive she will have to go to dedicated COVID shift in [place] called and confirmed a TTS schedule at 1015 am starting can leave after HD today from my end
--- NOTE | 2020-06-16 15:22 | PCM.HP.ID ---
Problem List (1) Pneumonia due to COVID-19 virus Status: Acute Reason for Consult: covid Consulted by: Dr. Smith History of Present Illness: The patient is a 64 year old F with ESRD, presented with 4-5 days of aches, fatigue, loss of appetite, loss of smell. No cough or SOB. Others at home with similar sx, seem to be recovering. No sputum. No abd pain, no n/v/d, no dysuria. Admitted, started on vanc/cefepime. Feeling well this AM on RA. Full ROS performed and neg except as noted above. - Medical History Past Medical History (Chronic Problems): Chronic Problems (Last Reviewed 06/16/20 @ 07:[address] Marc Snow MD) NSTEMI (non-ST elevated myocardial infarction) (Chronic) Dialysis patient (Chronic) Elevated troponin (Chronic) Congestive heart failure (Chronic) Rheumatoid arthritis (Chronic) Amyloidosis (Chronic) CKD (chronic kidney disease) stage 4, GFR 15-29 ml/min (Chronic) Renal anasarca (Chronic) Allergies/Adverse Reactions: Allergies No Known Allergies Allergy (Verified 10/28/19 18:42) Home Medications: Ambulatory Orders Medication Instructions Recorded Prednisone 2.5 mg PO BID 01/16/18 Oxycodone HCl 5 mg PO Q6H PRN PRN 09/06/19 ALPRAZolam [Xanax] 0.5 mg PO QHS PRN #0 10/21/19 Aspirin [Aspirin, Baby] 81 mg PO DAILY@0800 10/29/19 Sevelamer Carbonate 1,600 mg PO TIDCM 10/29/19 Acetaminophen [Tylenol Tablet] 650 mg PO Q6H PRN PRN #30 tab 10/31/19 Ibuprofen [Motrin] 400 mg PO Q6H PRN PRN #30 tab 10/31/19 Metoprolol(XL)Succ [Toprol Xl 25 mg PO BID #0 06/16/20 (Beta Azra)] - Social History Tobacco Use: non-smoker Vital Signs Temp Pulse Resp BP Pulse Ox 97.8 F 85 14 105/64 99 06/16/20 11:45 06/16/20 15:02 06/16/20 15:00 06/16/20 15:00 06/16/20 15:00 Oxygen Delivery Method Room Air Weight: 81 kg Body Mass Index (BMI) 28.8 Finger Stick Blood Glucose 143 Microbiology Past 72 Hours 06/15/20 20:45 Legionella Antigen - Final Urine, Clean Catch Streptococcus pneumoniae Antigen (M - Final Laboratory Tests Past 24 Hrs 06/15/20 06/15/20 06/15/20 00:55 19:45 19:45 WBC 10.1 RBC 3.16 L Hgb 9.2 L Hct 30.0 L MCV 94.9 MCH 29.1 MCHC 30.7 L RDW Std Deviation 54.9 H RDW Coeff of Mika 15.9 H Plt Count 540 H MPV 9.9 Immature Gran % (Auto) 0.800 Neut % (Auto) 75.8 H Lymph % (Auto) 18.6 L [place] % (Auto) 4.2 Eos % (Auto) 0.3 Baso % (Auto) 0.3 Absolute Neuts (auto) 7.7 Absolute Lymphs (auto) 1.89 Nucleated RBC % 0 Differential Comment Platelet Estimate Plt Morphology Comment D-Dimer Quant (PE/DVT) 5.71 H* Sodium Potassium Chloride Carbon Dioxide Anion Gap BUN Creatinine Estim Creat Clear Calc Est GFR (MDRD) Af Amer Est GFR (MDRD) Non-Af BUN/Creatinine Ratio Glucose Lactic Acid 3.2 H* Calcium Total Bilirubin AST ALT Alkaline Phosphatase Troponin I Total Protein Albumin Globulin Albumin/Globulin Ratio Urine Color Urine Clarity Urine pH Ur Specific [place] Urine Protein Urine Glucose (UA) Urine Ketones Urine Occult Blood Urine Nitrite Urine Bilirubin Urine Urobilinogen Ur Leukocyte Esterase Urine RBC Urine WBC Ur Squamous Epith Cells Amorphous Sediment Urine Bacteria Urine Mucus COVID-19 (KAUSHIK) MRSA (PCR) 06/15/20 06/15/20 06/15/20 19:45 19:45 20:00 WBC RBC Hgb Hct MCV MCH MCHC RDW Std Deviation RDW Coeff of Mika Plt Count MPV Immature Gran % (Auto) Neut % (Auto) Lymph % (Auto) [place] % (Auto) Eos % (Auto) Baso % (Auto) Absolute Neuts (auto) Absolute Lymphs (auto) Nucleated RBC % Differential Comment Platelet Estimate Plt Morphology Comment D-Dimer Quant (PE/DVT) Sodium 124 L Potassium 6.6 H* Chloride 90 L Carbon Dioxide 24.0 Anion Gap 10 BUN 76 H Creatinine 7.49 H* Estim Creat Clear Calc 5.45 Est GFR (MDRD) Af Amer 7 L Est GFR (MDRD) Non-Af 6 L BUN/Creatinine Ratio 10.1 Glucose 129 H Lactic Acid 2.7 H* Calcium 8.2 L Total Bilirubin 0.40 AST 43 H ALT 54 Alkaline Phosphatase 313 H Troponin I 0.329 H Total Protein 6.5 Albumin 2.3 L Globulin 4.2 Albumin/Globulin Ratio 0.5 L Urine Color Urine Clarity Urine pH Ur Specific [place] Urine Protein Urine Glucose (UA) Urine Ketones Urine Occult Blood Urine Nitrite Urine Bilirubin Urine Urobilinogen Ur Leukocyte Esterase Urine RBC Urine WBC Ur Squamous Epith Cells Amorphous Sediment Urine Bacteria Urine Mucus COVID-19 (KAUSHIK) Detected MRSA (PCR) 06/15/20 06/16/20 06/16/20 20:45 02:00 02:05 WBC RBC Hgb Hct MCV MCH MCHC RDW Std Deviation RDW Coeff of Mika Plt Count MPV Immature Gran % (Auto) Neut % (Auto) Lymph % (Auto) [place] % (Auto) Eos % (Auto) Baso % (Auto) Absolute Neuts (auto) Absolute Lymphs (auto) Nucleated RBC % Differential Comment Platelet Estimate Plt Morphology Comment D-Dimer Quant (PE/DVT) Sodium Potassium Chloride Carbon Dioxide Anion Gap BUN Creatinine Estim Creat Clear Calc Est GFR (MDRD) Af Amer Est GFR (MDRD) Non-Af BUN/Creatinine Ratio Glucose Lactic Acid Calcium Total Bilirubin AST ALT Alkaline Phosphatase Troponin I 0.363 H Total Protein Albumin Globulin Albumin/Globulin Ratio Urine Color Yellow Urine Clarity Sl. Cloudy Urine pH 7.0 Ur Specific [place] 1.010 Urine Protein 500 H Urine Glucose (UA) 250 H Urine Ketones Negative Urine Occult Blood 10 H Urine Nitrite Positive H Urine Bilirubin Negative Urine Urobilinogen Normal Ur Leukocyte Esterase 25 H Urine RBC 0-5 SEEN Urine WBC 0-5 SEEN Ur Squamous Epith Cells 0-5 SEEN Amorphous Sediment 1+ PHOS Urine Bacteria RARE Urine Mucus 0 SEEN COVID-19 (KAUSHIK) MRSA (PCR) Negative 06/16/20 06/16/20 06/16/20 05:20 05:20 05:20 WBC 9.0 RBC 3.16 L Hgb 9.3 L Hct 28.7 L MCV 90.8 MCH 29.4 MCHC 32.4 D RDW Std Deviation 51.9 H RDW Coeff of Mika 15.7 H Plt Count 442 MPV 9.6 Immature Gran % (Auto) 1.700 H Neut % (Auto) 68.3 Lymph % (Auto) 25.3 [place] % (Auto) 4.2 Eos % (Auto) 0.2 Baso % (Auto) 0.3 Absolute Neuts (auto) 6.1 Absolute Lymphs (auto) 2.28 Nucleated RBC % 0.2 Differential Comment SCANNED Platelet Estimate ADEQUATE Plt Morphology Comment CLUMPED D-Dimer Quant (PE/DVT) Sodium 132 L Potassium 3.8 Chloride 93 L Carbon Dioxide 28.0 Anion Gap 11 BUN 44 H Creatinine 4.64 H Estim Creat Clear Calc 11.47 Est GFR (MDRD) Af Amer 12 L Est GFR (MDRD) Non-Af 10 L BUN/Creatinine Ratio 9.5 L Glucose 66 L Lactic Acid Calcium 8.0 L Total Bilirubin 0.40 AST 95 H ALT 68 H Alkaline Phosphatase 305 H Troponin I 0.398 H Total Protein 6.6 Albumin 2.4 L Globulin 4.2 Albumin/Globulin Ratio 0.6 L Urine Color Urine Clarity Urine pH Ur Specific [place] Urine Protein Urine Glucose (UA) Urine Ketones Urine Occult Blood Urine Nitrite Urine Bilirubin Urine Urobilinogen Ur Leukocyte Esterase Urine RBC Urine WBC Ur Squamous Epith Cells Amorphous Sediment Urine Bacteria Urine Mucus COVID-19 (KAUSHIK) MRSA (PCR) - Other Studies Radiology: [] reviewed Other Studies: [] Route of nutrition/ use of supplements: [] Nutritional Intake: [] IV Site: [] Rivas Catheter: [] - Physical Exam General: Alert, Oriented x3, Cooperative, No apparent distress HEENT: Atraumatic, PERRLA, EOMI Neck: Supple, No Nodes Lungs: Clear to auscultation, Normal air movement Cardiovascular: Regular rate, Regular Rhythm Abdomen: Soft, Non Tender, Non-Distended Extremities: No edema Skin: No rashes IV Site: Peripheral, without redness Musculoskeletal: No Tenderness to Palpation of Joints or Extremities Neurological: Cranial nerves II-XII grossly intact - Assessment/Plan Antibiotics: [] Assessment/Plan: [] Active and Suspected Problems (Last Reviewed 06/16/20 @ 07:[address] Marc Snow MD) ESRD (end stage renal disease) on dialysis (Acute) Hyperkalemia (Acute) Symptomatic bradycardia (Acute) Chest pain (Acute) Septic shock (Acute) Pneumonia due to COVID-19 virus (Acute) Hyponatremia (Acute) Mild symptoms, sats good on RA, no fever here, lactate quickly normalized, cxs neg, no sign of bacterial infection at this point. Ok for discharge home off of abx, no need for dex due to lack of hypoxia. Quarantine for one more week. Will follow, thank you
--- NOTE | 2020-06-16 15:36 | CASEMGMT ---
RN CM Note: Call to [facility] Arbol[facility] to verify dc dialysis. Pt will be scheduled to begin in [place] on , 06/18/20 @ 1015 until COVID resolved. Placed on dc appointments and given to nurse to take to patient. Pt will need to arrange ride to facility. Laury RUVALCABA RN ACM
--- NOTE | 2020-06-16 15:57 | PCM.DC ---
- Discharge Diagnoses Current Active Problems: Current Active and Chronic Problems (Last Reviewed 06/16/20 @ 07:[address] Marc Snow MD) ESRD (end stage renal disease) on dialysis (Acute) Hyperkalemia (Acute) Symptomatic bradycardia (Acute) Chest pain (Acute) Septic shock (Acute) Pneumonia due to COVID-19 virus (Acute) NSTEMI (non-ST elevated myocardial infarction) (Chronic) Dialysis patient (Chronic) Elevated troponin (Chronic) Congestive heart failure (Chronic) Rheumatoid arthritis (Chronic) Amyloidosis (Chronic) CKD (chronic kidney disease) stage 4, GFR 15-29 ml/min (Chronic) Renal anasarca (Chronic) Hyponatremia (Acute) You will use the following diet at home:: Renal (restricted protein/sodium) Your food should be the consistency of: Regular Your liquids should be the consistency of: Regular/Thin Discharge Activity: Return to Normal Activity Call your doctor if you observe: Fever of 101 or Higher, Shortness of breath, Dizziness, Fainting spells, Swelling in the ankles, Chest pain, Increased palpitations (irregular heartbeat) Allergies/Adverse Reactions: Allergies No Known Allergies Allergy (Verified 10/28/19 18:42) Medications to take at Discharge Prednisone 2.5 mg PO BID 01/16/18 Oxycodone HCl 5 mg PO Q6H PRN PRN 09/06/19 ALPRAZolam [Xanax] 0.5 mg PO QHS PRN #0 10/21/19 Aspirin [Aspirin, Baby] 81 mg PO DAILY@0800 10/29/19 Sevelamer Carbonate 1,600 mg PO TIDCM 10/29/19 Acetaminophen [Tylenol Tablet] 650 mg PO Q6H PRN PRN #30 tab 10/31/19 Ibuprofen [Motrin] 400 mg PO Q6H PRN PRN #30 tab 10/31/19 Metoprolol(XL)Succ [Toprol Xl (Beta Azra)] 25 mg PO BID #0 06/16/20 Primary Care Physician: Jabier Arboleda DO [Primary Care Provider] - Please follow up with your Primary Care Physician in: 3-5 days Test Results: Test results from this visit will be discussed in further detail at your follow-up appointment, if applicable. Please Follow Up With: [facility] in [place] When:
--- NOTE | 2020-06-16 15:58 | DS.PCM_ITS ---
Discharge Date and Diagnosis - Problem List Patient Problems: Active and Suspected Problems (Last Reviewed 06/16/20 @ 07:[address] Marc Snow MD) ESRD (end stage renal disease) on dialysis (Acute) Hyperkalemia (Acute) Symptomatic bradycardia (Acute) Chest pain (Acute) Septic shock (Acute) Pneumonia due to COVID-19 virus (Acute) Hyponatremia (Acute) Date of Admission: 06/16/20 Date of Discharge: 06/16/20 - Primary Discharge Diagnosis Acute Problems: Active Problems (Last Reviewed 06/16/20 @ 07:[address] Marc Snow MD) ESRD (end stage renal disease) on dialysis (Acute) Hyperkalemia (Acute) Symptomatic bradycardia (Acute) Chest pain (Acute) Septic shock (Acute) Pneumonia due to COVID-19 virus (Acute) Hyponatremia (Acute) - Secondary Discharge Diagnosis Chronic Problems: Chronic Problems (Last Reviewed 06/16/20 @ 07:[address] Marc Snow MD) NSTEMI (non-ST elevated myocardial infarction) (Chronic) Dialysis patient (Chronic) Elevated troponin (Chronic) Congestive heart failure (Chronic) Rheumatoid arthritis (Chronic) Amyloidosis (Chronic) CKD (chronic kidney disease) stage 4, GFR 15-29 ml/min (Chronic) Renal anasarca (Chronic) Hospital Course and Treatment Imaging Results: Clinical Impression(s) from Imaging Studies Chest X-Ray 06/15/20 20:50 IMPRESSION: No acute pulmonary findings. Electronically Signed: Brayden Gudino MD at 21:31 EDT Tel , Service support , Chest CTA 06/15/20 23:40 IMPRESSION: No demonstrated pulmonary embolism or arterial dissection. Right lower lobe pneumonia. Left upper and lower lobe atelectasis. Electronically Signed: Brayden Gudino MD at 0:09 EDT Tel , Service support , Consults: ICU Nephrology Operations: None Procedures: None Summary of Care Provided: Per HPI: The patient is a 64 year old F clinical history of end-stage renal disease who presents emergency department with flulike symptoms that has been going on for 3 to 4 days. Because of progressively worsening symptoms the patient came to the emergency department. Associated with her symptoms is malaise and a productive cough. Further she has weakness. She has a decreased sense of smell. She report that her sense of taste is intact. At emergent department patient was found to be hypotensive and was given fluid bolus. Lactic acid was elevated at 2.7. Reportedly was at an [facility] wedding about a month ago where many parties were positive for Covid. Hospital Course: 1. COVID-19 pneumonia/hyperkalemia/bradycardia/end-stage renal disease- 64-year-old female with a history of end-stage renal disease on dialysis on Tuesdays, , Saturdays, presents with flulike symptoms for 3 to 4 days. In the ER she was found to have significantly elevated creatinine as well as a potassium of 6.6. Also she was very bradycardic down into the 30s potentially representing beta-azra overdose she was given both calcium gluconate and glucagon as well as Kayexalate for potassium. She did undergo dialysis which resolved her hyperkalemia. Her beta-azra was held and with the treatment with calcium gluconate and glucagon her bradycardia resolved as well. She has remained off of oxygen, her lung sounds have been clear, she is afebrile does not have a leukocytosis. She is also already on prednisone 2.5 mg p.o. twice daily. Therefore she was not started on dexamethasone and infectious disease and pulmonology both evaluated her and did not feel like she warranted remdesivi r or convalescent plasma. She did get a dose of hydrocortisone as a stress dose in the ER. She is doing very well today both of her antibiotics were discontinued as she does not have pneumonia on our individual reads of her CTA, and her UA did not demonstrate a UTI. She did receive another round of dialysis today and her metoprolol was decreased from 50 twice daily to 25 mg p.o. twice daily. Otherwise her home medications were kept the same. I discussed with her the plan for discharge today and she expressed understanding the risk benefits of going home and wants to go home today. She will need to follow-up with her PCP in 3 to 5 days, and she will need to go to [facility] in [place] which is able to handle her Covid. 2. Rheumatoid arthritis, hypertension, CAD, anxiety are all chronic medical conditions which complicate her care. Her home medications were continued where appropriate Patient Problems: Active and Suspected Problems (Last Reviewed 06/16/20 @ 07:[address] Marc Snow MD) ESRD (end stage renal disease) on dialysis (Acute) Hyperkalemia (Acute) Symptomatic bradycardia (Acute) Chest pain (Acute) Septic shock (Acute) Pneumonia due to COVID-19 virus (Acute) Hyponatremia (Acute) - Physical Exam Vitals/I&O's: Vital Signs Temp Pulse Resp BP Pulse Ox 97.8 F 85 14 105/64 99 06/16/20 11:45 06/16/20 15:02 06/16/20 15:00 06/16/20 15:00 06/16/20 15:00 Oxygen Delivery Method Room Air Weight: 178 lb 9.191 oz Body Mass Index (BMI) 28.8 Finger Stick Blood Glucose 143 Intake and Output for Last 24 Hours 06/14/20 06/15/20 06/16/20 23:59 23:59 23:59 Intake Total 500.05 / 500.05 1550 / 1550 Balance 500.05 / 500.05 1550 / 1550 General: Alert, Oriented x3, Cooperative, No apparent distress HEENT: Atraumatic, PERRLA, EOMI, Normocephalic Oral: Moist Mucosa Neck: Supple, No JVD Lungs: Clear to auscultation, Normal air movement, No rhonchi, No wheeze, No rales, Diminished Cardiovascular: Regular rate, Regular Rhythm, Normal S1, Normal S2, No murmurs Abdomen: Soft, Non Tender, Non-Distended, No Hepato-splenomegaly Extremities: No edema, Capillary Refill Less than 3 Seconds Skin: No rashes, No breakdown Neurological: Neuro grossly intact, Sensory exam intact to light touch and pain Psych/Mental Status: Normal Affect, Appropriate Microbiology Past 72 Hours 06/15/20 20:45 Urine, Clean Catch Legionella Antigen - Final 06/15/20 20:45 Urine, Clean Catch Streptococcus pneumoniae Antigen (M - Final Laboratory Results 06/15/20 00:55: Lactic Acid 3.2 H* 06/15/20 19:45: WBC 10.1, RBC 3.16 L, Hgb 9.2 L, Hct 30.0 L, MCV 94.9, MCH 29.1, MCHC 30.7 L, RDW Std Deviation 54.9 H, RDW Coeff of Mika 15.9 H, Plt Count 540 H, MPV 9.9, Immature Gran % (Auto) 0.800, Neut % (Auto) 75.8 H, Lymph % (Auto) 18.6 L, [place] % (Auto) 4.2, Eos % (Auto) 0.3, Baso % (Auto) 0.3, Absolute Neuts (auto) 7.7, Absolute Lymphs (auto) 1.89, Nucleated RBC % 0 06/15/20 19:45: D-Dimer Quant (PE/DVT) 5.71 H* 06/15/20 19:45: Sodium 124 L, Potassium 6.6 H*, Chloride 90 L, Carbon Dioxide 24.0, Anion Gap 10, BUN 76 H, Creatinine 7.49 H*, Estim Creat Clear Calc 5.45, Est GFR (MDRD) Af Amer 7 L, Est GFR (MDRD) Non-Af 6 L, BUN/Creatinine Ratio 10.1, Glucose 129 H, Calcium 8.2 L, Total Bilirubin 0.40, AST 43 H, ALT 54, Alkaline Phosphatase 313 H, Troponin I 0.329 H, Total Protein 6.5, Albumin 2.3 L , Globulin 4.2, Albumin/Globulin Ratio 0.5 L 06/15/20 19:45: Lactic Acid 2.7 H* 06/15/20 20:00: COVID-19 (KAUSHIK) Detected 06/15/20 20:45: Urine Color Yellow, Urine Clarity Sl. Cloudy, Urine pH 7.0, Ur Specific [place] 1.010, Urine Protein 500 H, Urine Glucose (UA) 250 H, Urine Ketones Negative, Urine Occult Blood 10 H, Urine Nitrite Positive H, Urine Bilirubin Negative, Urine Urobilinogen Normal, Ur Leukocyte Esterase 25 H, Urine RBC 0-5 SEEN, Urine WBC 0-5 SEEN, Ur Squamous Epith Cells 0-5 SEEN, Amorphous Sediment 1+ PHOS, Urine Bacteria RARE, Urine Mucus 0 SEEN 06/16/20 02:00: MRSA (PCR) Negative 06/16/20 02:05: Troponin I 0.363 H 06/16/20 05:20: WBC 9.0, RBC 3.16 L, Hgb 9.3 L, Hct 28.7 L, MCV 90.8, MCH 29.4, MCHC 32.4 D, RDW Std Deviation 51.9 H, RDW Coeff of Mika 15.7 H, Plt Count 442, MPV 9.6, Immature Gran % (Auto) 1.700 H, Neut % (Auto) 68.3, Lymph % (Auto) 25.3, [place] % (Auto) 4.2, Eos % (Auto) 0.2, Baso % (Auto) 0.3, Absolute Neuts (auto) 6.1, Absolute Lymphs (auto) 2.28, Nucleated RBC % 0.2, Differential Comment SCANNED, Platelet Estimate ADEQUATE, Plt Morphology Comment CLUMPED 06/16/20 05:20: Sodium 132 L, Potassium 3.8, Chloride 93 L, Carbon Dioxide 28.0, Anion Gap 11, BUN 44 H, Creatinine 4.64 H, Estim Creat Clear Calc 11.47, Est GFR (MDRD) Af Amer 12 L, Est GFR (MDRD) Non-Af 10 L, BUN/Creatinine Ratio 9.5 L, Glucose 66 L, Calcium 8.0 L, Total Bilirubin 0.40, AST 95 H, ALT 68 H, Alkaline Phosphatase 305 H, Total Protein 6.6, Albumin 2.4 L, Globulin 4.2, Albumin/Globulin Ratio 0.6 L 06/16/20 05:20: Troponin I 0.398 H Current Medications Acetaminophen (Acetaminophen 325 Mg Tablet) 650 mg PO Q6H PRN PRN PRN Reason: Pain Score 1-10/Temp > 100.7 F Last Admin: 06/16/20 11:05 Dose: 650 mg Documented by: Guaifenesin (Guaifenesin 1,200 Mg Tablet) 1,200 mg PO BID [facility] Last Admin: 06/16/20 08:00 Dose: 1,200 mg Documented by: Heparin Sodium (Porcine) (Heparin Injection (Vial) 5,000 Unit/Ml Vial) 5,000 unit SC Q8 [facility] Last Admin: 06/16/20 14:05 Dose: 5,000 unit Documented by: Sodium Chloride () 250 mls @ 15 mls/hr IV .[id number] PRN PRN Reason: Saline Flush Sodium Chloride () 250 mls @ 15 mls/hr IV .[id number] PRN PRN Reason: Additional IVPB Infusion Melatonin (Melatonin 3 Mg Tablet) 3 mg PO QHS PRN PRN PRN Reason: INSOMNIA Ondansetron HCl (Ondansetron 4 Mg/2 Ml Vial) 4 mg IV Q8H PRN PRN PRN Reason: NAUSEA/VOMITING Prednisone (Prednisone 5 Mg Tablet) 2.5 mg PO DAILY@0800 [facility] Prochlorperazine Edisylate (Prochlorperazine 10 Mg/2 Ml Vial) 5 mg IV Q4H PRN PRN PRN Reason: Breakthrough Nausea/Vomiting Sodium Chloride (0.9% Saline Lock 10 Ml Syringe) 10 - 40 ml IV UD PRN PRN Reason: SALINE FLUSH Discharge Activity: Return to Normal Activity Call your doctor if you observe: Fever of 101 or Higher, Shortness of breath, Dizziness, Fainting spells, Swelling in the ankles, Chest pain, Increased palpitations (irregular heartbeat) Home Medications: Medications to take at Discharge Prednisone 2.5 mg PO BID 01/16/18 Oxycodone HCl 5 mg PO Q6H PRN PRN 09/06/19 ALPRAZolam [Xanax] 0.5 mg PO QHS PRN #0 10/21/19 Aspirin [Aspirin, Baby] 81 mg PO DAILY@0800 10/29/19 Sevelamer Carbonate 1,600 mg PO TIDCM 10/29/19 Acetaminophen [Tylenol Tablet] 650 mg PO Q6H PRN PRN #30 tab 10/31/19 Ibuprofen [Motrin] 400 mg PO Q6H PRN PRN #30 tab 10/31/19 Metoprolol(XL)Succ [Toprol Xl (Beta Azra)] 25 mg PO BID #0 06/16/20 Primary Care Physician: Jabier Arboleda DO [Primary Care Provider] - Please follow up with your Primary Care Physician in: 3-5 days Please Follow Up With: [facility] in [place] When: Disposition: Home Minutes spent on discharge:: 35 Patient Condition:: Stable Medical Necessity - Tobacco Use Smoking Status: Never smoker Meaningful Use Info Meaningful Use Diagnoses (Choose all that apply): None applicable OBSV E&M: 70421 Observ/hosp same date L3
--- NOTE | 2020-06-16 17:42 | DIALYSIS ---
HD x 2.5 hours complete. Tolerated tx well. No fluid removed. Used left arm fistula. See tx data for more details. [place] removed post tx and pressure applied x 10 minutes. Hemostasis achieved. Fresh gauze and tape applied. Report was given to BELKYS Delatorre.
--- NOTE | 2020-06-17 14:08 | CASEMGMT ---
BELKYS COTTRELL COVID Discharge F/U Phone Call Discharge date: 06/16/2020 Call date: 06/17/2020 Call time: [phone] Attempted to reach pt without success at this time, message left for pt to call this RN RONIT back when able. [place] BELKYS COTTRELL Admission dx: Weakness/SOB, Septic Shock, COVID 19
--- NOTE | 2020-06-18 13:44 | CASEMGMT ---
BELKYS CM DC PHONE CALL DC DATE: 06/16/2020 DC DISPOSITION: Home DC DIAGNOSIS: SARS COVID 2 Attempted call to phone. No answer, and messaging did not have name identifier. Generic message left for call back if questions or information is needed. Laury STOREYN RN ACM
== END 2020-06-16 18:00 | disposition home or self-care (01) | DRG 871 ==
LOC: ED 23:36 → ICU 06-16 00:37
PROVIDERS: Admitting Provider Hospitalist; Emergency Provider Emergency Medicine; PCP Family Medicine; Visit Provider Family Medicine
DX: A41.89 Other specified sepsis (principal); U07.1 COVID-19; J12.89 Other viral pneumonia; N18.6 End stage renal disease; R65.21 Severe sepsis with septic shock; E87.1 Hypo-osmolality and hyponatremia; E85.9 Amyloidosis, unspecified; I13.2 Hypertensive heart and chronic kidney disease with heart failure and with stage 5 chronic kidney disease, or end stage renal disease; N17.9 Acute kidney failure, unspecified; I50.9 Heart failure, unspecified; I25.10 Atherosclerotic heart disease of native coronary artery without angina pectoris; I25.2 Old myocardial infarction; E87.5 Hyperkalemia; R00.1 Bradycardia, unspecified; M06.9 Rheumatoid arthritis, unspecified; F41.9 Anxiety disorder, unspecified; Z99.2 Dependence on renal dialysis; Z79.82 Long term (current) use of aspirin; Z79.899 Other long term (current) drug therapy
CPT/HCPCS: 71045; 71275; 80053; 81001; 83605; 84484; 85025; 85379; 87040; 87086; 87449; 87635; 87641; 90937; 93005; 99285; J7030; J7040; P9612; Q9967; A4216; G0257; J0610; J1610; U0002

== ENCOUNTER 2020-06-23 09:52 | Inpatient (IN) | payer OTHER, SELFPAY ==
[2020-06-16 01:45] VITALS: BMI 28.8
[2020-06-23] VITALS (28 sets, daily range): BP systolic 89–149; BP diastolic 32–100; PULSE 27–90; RESP 15–20; TEMP 36.4–37; O2SAT 88–100; BMI 31.5; BMI 30.6
--- NOTE | 2020-06-23 10:12 | RAD_ITS ---
STUDY: X-RAY CHEST REASON FOR EXAM: Female, 64 years old. Covid positive x 1 week, increase in SOB and weakness TECHNIQUE: Single AP portable view of the chest. COMPARISON: Comparison is made with prior study dated 06/15/2020. FINDINGS: EKG electrodes are seen. There now is evidence of increased interstitial markings in both lungs with areas of confluence more prominent at the right lung base and left midlung. Blunting of both cosmetic angles more prominent on the left side. There is moderate cardiac enlargement. Normal mediastinum and christine. Normal visualized pulmonary arteries. There is atherosclerotic tortuosity of the aortic arch and descending thoracic aorta. There are diffuse degenerative changes of the visualized thoracic spine. Bilateral shoulder replacement. There is no demonstrated abnormality of the visualized soft tissue structures of the upper abdomen. RAD/Chest 1 View (Portable) IMPRESSION: Increased interstitial markings in both lungs with areas of confluence. Blunting of both cause phrenic angles. Findings may represent a combination of infectious process such as an interstitial pneumonia superimposed on CHF. Electronically Signed: Pop Pimentel, at 11:12 EST , Service support ,
--- NOTE | 2020-06-23 10:12 | EKG12_ITS ---
Test Reason : Blood Pressure : / mmHG Vent. Rate : 091 BPM Atrial Rate : 091 BPM P-R Int : 176 ms QRS Dur : 100 ms QT Int : 390 ms P-R-T Axes : 073 -43 136 degrees QTc Int : 479 ms Normal sinus rhythm Left axis deviation Cannot rule out Anterior infarct , age undetermined T wave abnormality, consider lateral ischemia Abnormal ECG Confirmed by RADHA LOZANO, TIMOTHY ([id number]), graphics editor WHIT GRAHAM ([id number]) on 06/25/2020 11:35:39 AM Referred By: ZENON Confirmed By:TIMOTHY GARCIA MD
[2020-06-23 10:28] LABS: Absolute Lymphocyte Count 1.55 X10^3/uL (0.83-4.51); Absolute Neutrophil Count 13.1 X10^3/uL (2.0-7.7); Basophil# 0.04 X10^3/uL; Basophil% 0.3 % (0-1); Eosinophil# 0.11 X10^3/uL; Eosinophils% 0.7 % (0-5); Hematocrit 28.6 % (37-47); Hemoglobin 8.7 g/dL (12.0-15.0); Lymphocyte # 1.55 X10^3/ul (4.0); Lymphocyte % 9.9 % (19-41); Mean Corp Hgb Conc 30.4 g/dL (32-36); Mean Corpuscular Hgb 29.1 pg (27.0-32.0); Mean Corpuscular Volume 95.7 fL (81-99); Mean Platelet Vol. 9.8 fl (6.2-12.0); Monocyte% 4.5 % (0-10); NRBC Flagged by Analyzer 0.3 % (0-5); Neutrophil % 84.1 % (47-70); Platelet Count 554 K/mm3 (150-450); Red Blood Count 2.99 M/mm3 (4.2-5.4); White Blood Count 15.6 K/mm3 (4.4-11.0)
--- NOTE | 2020-06-23 10:34 | ED.VISSUMM ---
- ER Visit Summary Date of Service: 06/23/20 Chief Complaint: Shortness of breath History of Present Illness: The patient is a 64 F who presents with shortness of breath that became worse yesterday. Patient states it has been constant. Patient states nothing makes it better or worse. Patient states she is coughing up small amount of green sputum. Patient also admits to a sore throat. Patient also admits to some tightness in the upper chest bilaterally. Patient states she recently tested positive for COVID-19. Patient states she was hospitalized for that approximately 1 week ago. Patient states she was getting better and then became worse again yesterday. Patient denies any nausea or vomiting. Patient denies any fevers or chills. Physical Examination: Vital signs are stable. Patient is afebrile. Patient is in no acute distress. Oral mucosa is pink and moist. Neck is supple. Trachea is midline. There is no JVD noted. Heart was regular rate and rhythm. Lungs are clear but diminished bilaterally. Abdomen is soft. Bowel sounds are normal. There is no tenderness. There is no rebound or guarding noted. Skin is warm dry. Cranial nerves II through XII are intact. There are no focal motor or sensory deficits noted. Extremities are intact. There is no calf tenderness or edema. Test Results: EKG shows normal sinus rhythm with a rate of 91. There are nonspecific ST-T wave changes in leads I and aVL. This is improved compared to previous EKG dated 06/15/2020. CBC shows a leukocytosis of 15.6. There is a mild anemia with a hemoglobin of 8.7 and hematocrit of 28.6. Platelets were slightly elevated at 554. Comprehensive metabolic profile showed an elevated creatinine of 8.24 and an elevated BUN of 93. Potassium was only slightly elevated at 5.3. Troponin was normal. Lactate was normal. Portable chest x-ray shows increased interstitial markings with areas of confluence. This may represent combination of pneumonia superimposed on CHF. This was interpreted by the radiologist and reviewed by myself. Emergency Department Course and Treatment: Patient was given a dose of morphine and Zofran here. Patient was started on Rocephin and Zithromax. Case was discussed with the hospitalist. He initially felt that the patient could go to dialysis today and have fluid removed which would improve her congestive heart failure and she can go home on oral antibiotics. However, patient's oxygen saturation dropped to 88% on room air. It improved with 2.5 L nasal cannula. Patient will be admitted for observation. Patient understood and was agreeable with the plan. All questions were answered. Disposition: Admit to hospital Impression: 1. Pneumonia 2. COVID-19 3. Congestive heart failure 4. End-stage renal disease 5. Hypoxia This note was generated with [employer] dictation software. It may contain incorrect words, spelling, and punctuation that were not noted in review of the chart prior to signing ED Disposition - Plan for ED Patient: Disposition: Acute Care Hospital [facility] Diagnosis: Healthcare-associated pneumonia, COVID-19, Hypoxia, CKD (chronic kidney disease) stage 4, GFR 15-29 ml/min Referrals: Jabier Arboleda DO [Primary Care Provider] -
[2020-06-23 10:35] LABS: International Normalized Ratio 1.2; Prothrombin Time (Protime)PT. 14.5 SECONDS (11.7-14.9)
[2020-06-23 10:36] LABS: Partial Thromboplast Time 29.3 Seconds (24.1-36.2)
[2020-06-23 10:46] LABS: ALB/GLOB Ratio 0.6 RATIO (0.9-2.4); AST(SGOT) 50 U/L (15-37); Alanine Aminotransfer ALT/SGPT 72 U/L (13-56); Albumin, Serum 2.4 g/dL (3.2-5.0); Alkaline Phosphatase 371 U/L (45-117); Anion Gap 10 (5-15); BUN 93 mg/dL (7-18); BUN/Creat Ratio 11.3 RATIO (10-20); Calcium,Total 8.3 mg/dL (8.5-10.1); Chloride 92 mmol/L (98-107); Creatinine, Serum 8.24 mg/dL (0.55-1.02); EST Glomerular Filtration Rate 5 mL/min (>60); Est Glom Filt Rate - Afr Amer 6 mL/min (>60); Estimated Creatinine Clearance 6.46 ml/min; Globulin 4.1 g/dL (2.2-4.2); Glucose 130 mg/dL (74-106); Potassium 5.3 mmol/L (3.5-5.1); Protein, Total 6.5 g/dL (6.4-8.2); Sodium Level 129 mmol/L (136-145)
[2020-06-23 10:53] LABS: Lactic Acid 1.9 mmol/L (0.4-1.9)
[2020-06-23] MEDS: Morphine 4 MG/ML Syringe IV (10:54)
[2020-06-23] MEDS: Ondansetron 4 MG/2 ML Vial IV (10:54)
--- NOTE | 2020-06-23 11:38 | NURSING ---
DR OVALLE FOR DR YARBROUGH
[2020-06-23] MEDS: Ceftriaxone 1 GM/50 ML BAG IV (11:49)
--- NOTE | 2020-06-23 12:00 | EKG12_ITS ---
Test Reason : REPEAT Blood Pressure : / mmHG Vent. Rate : 050 BPM Atrial Rate : 050 BPM P-R Int : 134 ms QRS Dur : 104 ms QT Int : 478 ms P-R-T Axes : 073 -69 149 degrees QTc Int : 435 ms Sinus bradycardia Incomplete right bundle branch block Left anterior fascicular block Inferior infarct , age undetermined T wave abnormality, consider anterolateral ischemia Abnormal ECG Confirmed by RADHA LOZANO, TIMOTHY ([id number]), editor newspaper WHIT GRAHAM ([id number]) on 06/25/2020 11:27:59 AM Referred By: ZENON Confirmed By:TIMOTHY GACRIA MD
--- NOTE | 2020-06-23 12:50 | NURSING ---
MS2 COVID UNIT [facility] HCAP, HYPOXIA, COVID 19, CHRONIC KIDNEY DISEASE
--- NOTE | 2020-06-23 13:14 | ED.RN ---
pt called states he has concerns for pt recieving narcotic medication. states pt does not do well with narcotics and has had multiple overdoses. dr Anay barney.
--- NOTE | 2020-06-23 13:35 | NURSING ---
[id number]
--- NOTE | 2020-06-23 14:06 | ED.RN ---
pt screaming in room. states chest pain 10 out of 10. heart rate decrease to 53
--- NOTE | 2020-06-23 14:24 | EKG12_ITS ---
Test Reason : EKG CHANGE Blood Pressure : / mmHG Vent. Rate : 042 BPM Atrial Rate : 042 BPM P-R Int : 144 ms QRS Dur : 104 ms QT Int : 512 ms P-R-T Axes : 065 -64 157 degrees QTc Int : 427 ms Marked sinus bradycardia Left anterior fascicular block T wave abnormality, consider anterolateral ischemia Abnormal ECG Confirmed by ESTER LOZANO, MARCELLE ([id number]), map editor MARIBELL TAPIA ([id number]) on 07/02/2020 10:52:05 AM Referred By: YAMILE Confirmed By:MARCELLE NORMAN MD
--- NOTE | 2020-06-23 14:40 | ED.RN ---
pt heart rate decreasing while in the department. heart rate decrease to 43. this rn called for repeat ekg. pt complains of pain/ similar to before but more intense.ekg completed. dr Chung showed ekg per fmd teacher. report to this rn ekg has nothing new that needs treated at this time continue transport to icu. Enroute to icu pt complains of increased pain. heart rate decreases to 33 upon arrival to icu. icu staff notified. called for repeat ekg upon arrival to room. care handed over to icu nurse
[2020-06-23] MEDS: predniSONE 5 MG Tablet 2.5 MG PO (15:59)
[2020-06-23] MEDS: Ibuprofen 400 MG Tablet PO (16:00)
[2020-06-23] MEDS: SEVELAMER CARBONATE 800 MG TABLET 1600 MG PO (17:25)
--- NOTE | 2020-06-23 18:03 | HP.PCM_ITS ---
Problem List (1) Shortness of breath Status: Acute (2) Generalized weakness Status: Acute History of Present Illness Date of Admission: 06/23/20 Chief Complaint: Generalized weakness, shortness of breath The patient is a 64 year old F who was seen in the emergency room at [facility] with a chief complaint of shortness of breath and generalized weakness. Patient is a chronic dialysis patient, she tested positive for COVID- 19 last week and was briefly in the hospital. Patient states she had no chills chills or fever. Patient admits to coughing up green sputum. Work-up in the emergency room included an EKG which showed a sinus rhythm with a rate of 91, patient's labs were remarkable for a white blood cell count of 15.6, hemoglobin was 8.7, creatinine was 8.24, potassium was elevated at 5.3, patient had mild elevation of her liver enzymes, and her sodium was 129. Patient's chest x-ray showed bilateral infiltrates indicative of CHF or pneumonia. Patient's pulse ox was initially 96 on room air in the emergency room but then declined to 88% on room air. The patient was placed in observation status on MedSurg 2 for acute CHF and possible pneumonia, she was given Zithromax and Rocephin in the emergency room, I have decided to place her on Levaquin here in the hospital. She will be seen by nephrology and have dialysis today, her chest x-ray will be repeated tomorrow. Past Medical History Past Medical History (Chronic Problems): Chronic Problems (Last Reviewed 06/16/20 @ 07:[address] Marc Snow MD) NSTEMI (non-ST elevated myocardial infarction) (Chronic) Dialysis patient (Chronic) Elevated troponin (Chronic) Congestive heart failure (Chronic) Rheumatoid arthritis (Chronic) Amyloidosis (Chronic) CKD (chronic kidney disease) stage 4, GFR 15-29 ml/min (Chronic) Renal anasarca (Chronic) Medical History: Medical History (Last Reviewed 06/16/20 @ 07:[address] Marc Snow MD) NSTEMI (non-ST elevated myocardial infarction) (Chronic) I21.4 Dialysis patient (Chronic) Z99.2 Acute kidney injury superimposed on CKD (Inactive) N17.9, N18.9 Elevated troponin (Chronic) R79.89 Congestive heart failure (Chronic) I50.9 Rheumatoid arthritis (Chronic) M06.9 Amyloidosis (Chronic) E85.9 CKD (chronic kidney disease) stage 4, GFR 15-29 ml/min (Chronic) N18.4 Renal anasarca (Chronic) N04.9 Hyponatremia (Acute) E87.1 Allergies No Known Allergies Allergy (Verified 06/23/20 10:05) Home Medications: Ambulatory Orders Medication Instructions Recorded Prednisone 5 mg PO DAILY 01/16/18 Aspirin [Aspirin, Baby] 81 mg PO DAILY@0800 10/29/19 Sevelamer Carbonate 240 mg PO TIDCM 10/29/19 Acetaminophen [Tylenol Tablet] 650 mg PO Q6H PRN PRN #30 tab 10/31/19 Ibuprofen [Motrin] 400 mg PO Q6H PRN PRN #30 tab 10/31/19 Alprazolam [Xanax] 1 mg PO TID PRN PRN 06/23/20 Fluticasone 0.05% [Flonase Nasal 2 spray NASAL DAILY 06/23/20 [place]] Metoprolol(XL)Succ [Toprol Xl 25 mg PO BID 06/23/20 (Beta Azra)] Prednisone 2.5 mg PO 1200 06/23/20 Surgical History: - - Left forearm AV fistula Psychiatric History: Anxiety, Depression 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 Review of Systems Constitutional: Reports: Malaise, Weakness, Fatigue. Denies: Anorexia, Chills, Fever, Night Sweats, Weight Change Eyes: Denies: Cataracts, Conjunctivae Inflammation, Double vision, Drainage HEENT: Denies: Difficulty Swallowing, Dysphasia, Ear Pain, Eye Pain, Hearing Changes, Nasal bleeding, Nasal Congestion, Post Nasal Drip Cardiovascular: Denies: Chest Pain, Claudication, Chest Pressure, Chest Tightness, Edema, Heaviness, Palpitations Respiratory: Reports: Cough, Shortness of Breath, Shortness of breath at rest, Shortness of breath upon exertion, Sputum production - Greenish sputum production at times. Denies: Hemoptysis Gastrointestinal: Denies: Abdominal Pain, Constipation, Diarrhea, Hematemesis, Hematochezia, Nausea, Melena, Vomiting Genitourinary: Denies: Dysuria, Frequency, Hematuria, Hesitancy, Urgency Musculoskeletal: Denies: Back Pain, Foot Pain, Hand Pain, Joint Pain, Joint stiffness, Joint swelling, Joint Tenderness, Leg Pain Skin: Denies: Dryness, Pruritis, Rash Neurological: Denies: Blurred vision, Double vision, Change in Speech, Slurred speech, Difficulty swallowing, Focal weakness, Numbness, Tingling Psychiatric: Denies: Anxiety, Depression, Homicidal Ideations, Suicidal Ideations Endocrine: Denies: Change in Body Habitus, Heat/ Cold Intolerance, Polydipsia, Polyuria Hematologic/ Lymphatic: Denies: Adenopathy, Anemia, Easy Bruising, Easy Bleeding, Petechiae, Purpura VTE Information - Inpt Only VTE Present on Admission: No VTE Mechan Device Prophylaxis: None VTE Pharm Prophylaxis ordered?: Yes Patient Problems: Active and Suspected Problems (Last Reviewed 06/16/20 @ 07:[address] Marc Snow MD) Healthcare-associated pneumonia (Acute) COVID-19 (Acute) Hypoxia (Acute) - Physical Exam Vitals/I&O's: Vital Signs Temp Pulse Resp BP Pulse Ox 98 F 56 L 20 H 112/92 H 99 06/23/20 13:39 06/23/20 13:39 06/23/20 13:39 06/23/20 13:39 06/23/20 13:39 Oxygen Flow Rate (L/min) 2.0 Oxygen Delivery Method Room Air Weight: 86.001 kg Body Mass Index (BMI) 30.6 Finger Stick Blood Glucose 143 Intake and Output for Last 24 Hours 06/21/20 06/22/20 06/23/20 23:59 23:59 23:59 Intake Total 50 / 50 Balance 50 / 50 General: Alert, Oriented x3, Cooperative, No apparent distress, Well developed, - - Patient appears weak and fatigued HEENT: Atraumatic, PERRLA, EOMI, Normocephalic Oral: Moist Mucosa Neck: Supple, No JVD, Trachea Midline, Thyroid Normal Size and Texture Lungs: Clear to auscultation, Normal air movement, No rhonchi, No wheeze, No rales Cardiovascular: Regular rate, Regular Rhythm, Normal S1, Normal S2, No murmurs, PMI Normal, No rub noted, No Gallop Abdomen: Bowel Sounds Present, Soft, Non Tender, Non-Distended Extremities: No clubbing, No cyanosis, No edema, Capillary Refill Less than 3 Seconds Skin: No rashes, No breakdown Musculoskeletal: No Tenderness to Palpation of Joints or Extremities Neurological: Cranial nerves II-XII grossly intact, Neuro grossly intact, Sensory exam intact to light touch and pain Psych/Mental Status: Normal Affect, Appropriate, Alert and oriented to time, place, person, mood and affect Laboratory Results 06/23/20 10:13: WBC 15.6 H, RBC 2.99 L, Hgb 8.7 L, Hct 28.6 L, MCV 95.7, MCH 29.1, MCHC 30.4 L, RDW Std Deviation 57.0 H, RDW Coeff of Mika 17.0 H, Plt Count 554 H, MPV 9.8, Immature Gran % (Auto) 0.500, Neut % (Auto) 84.1 H, Lymph % (Auto) 9.9 L, [place] % (Auto) 4.5, Eos % (Auto) 0.7, Baso % (Auto) 0.3, Absolute Neuts (auto) 13.1 H, Absolute Lymphs (auto) 1.55, Nucleated RBC % 0.3 06/23/20 10:13: PT 14.5, INR 1.2, APTT 29.3 06/23/20 10:13: Sodium 129 L, Potassium 5.3 H, Chloride 92 L, Carbon Dioxide 27.0, Anion Gap 10, BUN 93 H, Creatinine 8.24 H*, Estim Creat Clear Calc 6.46, Est GFR (MDRD) Af Amer 6 L, Est GFR (MDRD) Non-Af 5 L, BUN/Creatinine Ratio 11.3, Glucose 130 H, Calcium 8.3 L, Total Bilirubin 0.80, AST 50 H, ALT 72 H, Alkaline Phosphatase 371 H, Total Protein 6.5, Albumin 2.4 L, Globulin 4.1, Albumin/Globulin Ratio 0.6 L 06/23/20 10:13: Lactic Acid 1.9 Current Medications Acetaminophen (Acetaminophen 325 Mg Tablet) 650 mg PO Q6H PRN PRN PRN Reason: Pain Score 1-10 Alprazolam (Alprazolam 0.5 Mg Tablet) 0.5 mg PO QHS PRN PRN Reason: ANXIETY Aspirin (Aspirin 81 Mg Tab.Chew) 81 mg PO DAILY@0800 [facility] Heparin Sodium (Porcine) (Heparin Injection (Vial) 5,000 Unit/Ml Vial) 5,000 unit SC Q12 [facility] Ibuprofen (Ibuprofen 400 Mg Tablet) 400 mg PO Q6H PRN PRN PRN Reason: Pain Score 1-10 Last Admin: 06/23/20 16:00 Dose: 400 mg Documented by: Levofloxacin (Levofloxacin 750 Mg Tablet) 750 mg PO Q48@0600 [facility] Ondansetron HCl (Ondansetron 4 Mg/2 Ml Vial) 4 mg IV Q8H PRN PRN PRN Reason: NAUSEA/VOMITING Prednisone (Prednisone 5 Mg Tablet) 2.5 mg PO BIDCM [facility] Last Admin: 06/23/20 15:59 Dose: 2.5 mg Documented by: Sevelamer Carbonate (Sevelamer Carbonate 800 Mg Tablet) 1,600 mg PO TIDCM [facility] Last Admin: 06/23/20 17:25 Dose: 1,600 mg Documented by: Sodium Chloride (0.9% Saline Lock 10 Ml Syringe) 10 - 40 ml IV UD PRN PRN Reason: SALINE FLUSH Assessment/Plan All Active Problems (Last Reviewed 06/16/20 @ 07:[address] Marc Snow MD) Generalized weakness (Acute) ESRD (end stage renal disease) on dialysis (Acute) Hyperkalemia (Acute) Symptomatic bradycardia (Acute) Chest pain (Acute) Septic shock (Acute) Pneumonia due to COVID-19 virus (Acute) Healthcare-associated pneumonia (Acute) COVID-19 (Acute) Hypoxia (Acute) Shortness of breath (Acute) Hyponatremia (Acute) #1 acute fluid overload secondary to end-stage renal disease and acute on chronic diastolic congestive heart failure-patient will be placed into observation status on [facility] 2, she will undergo dialysis, chest x-ray will be repeated tomorrow. #2 bilateral infiltrates suggestive of pneumonia-? Healthcare acquired-I will place the patient on Zosyn and have infectious diseases see the patient tomorrow in consultation #3 end-stage renal disease with fluid overload-patient will be dialyzed today #4 amyloidosis #5 bradycardia-probably secondary to beta-azra usage-patient's heart rate has been slow since she was admitted to MedSurg to, I have stopped her metoprolol and she will undergo dialysis which may help if it is due to her beta-azra. Patient will be observed on telemetry. #6 hypoxia-secondary to fluid overload and possible healthcare acquired pneumonia-pulse ox will be monitored OBSV E&M: [id number] Initial observation care L3
--- NOTE | 2020-06-23 19:44 | DIALYSIS ---
dialysis started at 1735 today. blood was very dark from LLAF. after 10min of treatment TMP alarms started alarming +400 and machine was alarming. system clotted off. New system set up and upon starting no flow from fistula noted. No bruit noted. a dull thrill was present. Dr. Burroughs called and informed as was Jere RIZVI.
[2020-06-23] MEDS: Atropine Sulfate 1 MG/10 ML Syringe 0.5 MG IV (19:45)
--- NOTE | 2020-06-23 19:50 | PCM.HOSP.N ---
Hospitalist Note Called for for hypotension and bradycardia. Unable to do HD 2/2 fistula clotted off. Atropine 0.5 mg given x 2 doses with favorable response after each dose. Dopamine started at 10 for now and to titrate to MAP of 65 and HR > 60. HR was 80-100 and MAP was 85 after the Dopamine was started. D/W Dr. Sterling and will have fistula addressed or HD cath placed tomorrow. D/W Dr. Price as well and he will give glucagon. Pt is feeling better with better CO and perfusion. Electrical High Tension Tester aware.
--- NOTE | 2020-06-23 20:00 | NURSING ---
atropine .5 mg ivp ivp. hrt 40s.
[2020-06-23] MEDS: Acetaminophen 325 MG Tablet 650 MG PO (20:03)
[2020-06-23] MEDS: 0.9% Saline Lock 10 ML Syringe IV ×2 (20:07→20:42)
[2020-06-23] MEDS: Heparin Injection (Vial) 5,000 UNIT/ML VIAL 5000 UNIT SC (20:08)
--- NOTE | 2020-06-23 20:11 | NURSING ---
dopamine drip startred. pt remains diaphortic and cold to touch. dr ashton her
[2020-06-23] MEDS: Atropine Sulfate 1 MG/10 ML Syringe IV (20:14)
--- NOTE | 2020-06-23 20:14 | NURSING ---
atropine 1mg ivp given
[2020-06-23] MEDS: Glucagon 1 MG/ML Syringe IV (20:42)
[2020-06-23] MEDS: DOPamine IV 800 MG/250 ML IV.SOLN. 20.2 MG CONT INF (20:48)
[2020-06-23] MEDS: TITRATION PARAMETER CHANGE 1 EACH IV (21:33)
[2020-06-24] VITALS (40 sets, daily range): BP systolic 89–164; BP diastolic 30–84; PULSE 39–97; RESP 14–18; TEMP 35.9–36.6; O2SAT 84–100
[2020-06-24] MEDS: Ibuprofen 400 MG Tablet PO ×4 (00:26→23:13)
[2020-06-24] MEDS: DOPamine IV 800 MG/250 ML IV.SOLN. 28.2 MG CONT INF (03:25)
[2020-06-24] MEDS: Acetaminophen 325 MG Tablet 650 MG PO (03:34)
--- NOTE | 2020-06-24 05:55 | RAD_ITS ---
STUDY: X-RAY CHEST REASON FOR EXAM: Female, 64 years old. CHF -- COVID TECHNIQUE: Single AP portable view of the chest. COMPARISON: Comparison is made with prior study dated 06/23/2020. FINDINGS: EKG electrodes are seen. Vascular congestion and mild CHF. This is improved as compared to prior study. Blunting of both costophrenic angles. Increased markings in the left mid lung as well as at the left lung base. There is mild cardiac enlargement. Normal mediastinum and christine. Normal visualized pulmonary arteries. Normal visualized aortic arch and descending thoracic aorta. There are diffuse degenerative changes of the visualized thoracic spine. Bilateral shoulder replacements. There is no demonstrated abnormality of the visualized soft tissue structures of the upper abdomen. RAD/Chest 1 View (Portable) IMPRESSION: Mild improvement in the CHF. Electronically Signed: Pop Pimentel, at 9:56 EST , Service support ,
--- NOTE | 2020-06-24 06:03 | CON.PCM_ITS ---
Reason for Consult Date of Consultation: 06/24/20 Reason for Consultation: Acute hypoxemic respiratory insufficiency History of Present Illness: The patient is a 64-year-old female, with a history as outlined below, who presented to the emergency department on June 23 with complaints of shortness of breath, cough and sore throat. The patient was just admitted to the hospital at the end of May, at which time, she was diagnosed with Covid pneumonia. The patient was not felt to be a candidate for remdesivir or convalescent plasma. The patient was set up with an alternative dialysis center in [facility] that would be capable of providing her treatment amidst her diagnosis of Covid. It should be noted that the patient developed bradycardia during her previous hospital admission with heart rates into the 30s. Her beta-azra was held and she was treated with calcium gluconate and glucagon. At discharge, the patient's beta-azra regimen was decreased from 50 mg twice daily to 25 mg twice daily. 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 On presentation to the emergency department, the patient was noted to be afebrile, hemodynamically stable and was maintaining appropriate oxygen saturations on room air. Laboratory evaluation revealed a white blood cell count of 15,000. Platelet count was elevated to 554,000. Chemistry profile was notable for a sodium of 129, potassium of 5.3, BUN of 93 and creatinine of 8.24. Lactate was within normal limits. The patient was subsequently admitted to the medical intensive care unit for further management. Last evening, attempt was undertaken to perform dialysis. However, upon starting, no flow was noted from the fistula. Therefore, dialysis could not be performed. The patient also became significantly bradycardic and hypotensive overnight and had to be started on a dopamine infusion. Despite this, she continues to have heart rates in the 40s and 50s. It does appear that the patient was given atropine and glucagon last evening as well. Past Medical History Past Medical History (Chronic Problems): Chronic Problems (Last Reviewed 06/16/20 @ 07:[address] Marc Snow MD) NSTEMI (non-ST elevated myocardial infarction) (Chronic) Dialysis patient (Chronic) Elevated troponin (Chronic) Congestive heart failure (Chronic) Rheumatoid arthritis (Chronic) Amyloidosis (Chronic) CKD (chronic kidney disease) stage 4, GFR 15-29 ml/min (Chronic) Renal anasarca (Chronic) Medical History: Medical History (Last Reviewed 06/16/20 @ 07:[address] Marc Snow MD) NSTEMI (non-ST elevated myocardial infarction) (Chronic) I21.4 Dialysis patient (Chronic) Z99.2 Acute kidney injury superimposed on CKD (Inactive) N17.9, N18.9 Elevated troponin (Chronic) R79.89 Congestive heart failure (Chronic) I50.9 Rheumatoid arthritis (Chronic) M06.9 Amyloidosis (Chronic) E85.9 CKD (chronic kidney disease) stage 4, GFR 15-29 ml/min (Chronic) N18.4 Renal anasarca (Chronic) N04.9 Hyponatremia (Acute) E87.1 Allergies No Known Allergies Allergy (Verified 06/23/20 10:05) Home Medications: Ambulatory Orders Medication Instructions Recorded Prednisone 5 mg PO DAILY 01/16/18 Aspirin [Aspirin, Baby] 81 mg PO DAILY@0800 10/29/19 Sevelamer Carbonate 240 mg PO TIDCM 10/29/19 Acetaminophen [Tylenol Tablet] 650 mg PO Q6H PRN PRN #30 tab 10/31/19 Ibuprofen [Motrin] 400 mg PO Q6H PRN PRN #30 tab 10/31/19 Alprazolam [Xanax] 1 mg PO TID PRN PRN 06/23/20 Fluticasone 0.05% [Flonase Nasal 2 spray NASAL DAILY 06/23/20 [place]] Metoprolol(XL)Succ [Toprol Xl 25 mg PO BID 06/23/20 (Beta Azra)] Prednisone 2.5 mg PO 1200 06/23/20 Surgical History: - - Left forearm AV fistula Psychiatric History: Anxiety, Depression 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 Paternal History Items: Diabetes, - Review of Systems Constitutional: Reports: Malaise, Fatigue Eyes: Denies: Blurred vision, Double vision HEENT: Reports: Sore Throat Cardiovascular: Denies: Chest Pain, Palpitations Respiratory: Reports: Cough, Shortness of Breath Gastrointestinal: Denies: Abdominal Pain, Nausea, Vomiting Genitourinary: Denies: Dysuria Musculoskeletal: Denies: Joint Pain, Joint Tenderness Skin: Denies: Rash, Wounds Neurological: Denies: Numbness, Tingling, Focal weakness Psychiatric: Reports: Anxiety Hematologic/ Lymphatic: Reports: Anemia Patient Problems: Active and Suspected Problems (Last Reviewed 06/16/20 @ 07:[address] Marc Snow MD) Generalized weakness (Acute) Symptomatic bradycardia (Acute) Pneumonia due to COVID-19 virus (Acute) Healthcare-associated pneumonia (Acute) COVID-19 (Acute) Hypoxia (Acute) Shortness of breath (Acute) Objective: The patient's most recent lab work, culture data and imaging studies have all been personally reviewed. Surface echocardiogram from August 2019 revealed normal LV size with an ejection fraction of 55%. Pulmonary artery systolic pressure was estimated to be 54 mmHg. Coronavirus PCR was positive on June 15. Blood cultures are pending. - Physical Exam Vitals/I&O's: Vital Signs Temp Pulse Resp BP Pulse Ox 98 F 41 L 17 113/54 L 98 06/24/20 03:58 06/24/20 06:02 06/24/20 06:02 06/24/20 06:02 06/24/20 06:02 Oxygen Flow Rate (L/min) 2 Oxygen Delivery Method Nasal Cannula Weight: 190 lb 11.198 oz Body Mass Index (BMI) 30.6 Finger Stick Blood Glucose 143 Intake and Output for Last 24 Hours 06/22/20 06/23/20 06/24/20 23:59 23:59 23:59 Intake Total 474.53 / 474.53 297.52 / 297.52 Balance 474.53 / 474.53 297.52 / 297.52 General: Alert, Cooperative, No apparent distress HEENT: Atraumatic, Normocephalic Oral: No Gingival or Mucosal Lesions/ Ulcerations Neck: Supple, No Nodes, Trachea Midline Lungs: Diminished Cardiovascular: Normal S1, Normal S2, Bradycardic Abdomen: Bowel Sounds Present, Soft, Non Tender Extremities: No clubbing, No cyanosis, Edema Skin: - - Lower extremity venous stasis dermatitis Musculoskeletal: No Muscle Wasting Lymphatic: No Cervical, Supraclavicular, or Inguinal Adenopathy Neurological: Neuro grossly intact Psych/Mental Status: Normal Affect, Appropriate Labs (Last 48 Hours) 06/23/20 06/23/2020 10:13 10:13 10:13 WBC 15.6 H RBC 2.99 L Hgb 8.7 L Hct 28.6 L MCV 95.7 MCH 29.1 MCHC 30.4 L RDW Std Deviation 57.0 H RDW Coeff of Mika 17.0 H Plt Count 554 H MPV 9.8 Immature Gran % (Auto) 0.500 Neut % (Auto) 84.1 H Lymph % (Auto) 9.9 L [place] % (Auto) 4.5 Eos % (Auto) 0.7 Baso % (Auto) 0.3 Absolute Neuts (auto) 13.1 H Absolute Lymphs (auto) 1.55 Nucleated RBC % 0.3 PT 14.5 INR 1.2 APTT 29.3 Sodium 129 L Potassium 5.3 H Chloride 92 L Carbon Dioxide 27.0 Anion Gap 10 BUN 93 H Creatinine 8.24 H* Estim Creat Clear Calc 6.46 Est GFR (MDRD) Af Amer 6 L Est GFR (MDRD) Non-Af 5 L BUN/Creatinine Ratio 11.3 Glucose 130 H Lactic Acid Calcium 8.3 L Total Bilirubin 0.80 AST 50 H ALT 72 H Alkaline Phosphatase 371 H Total Protein 6.5 Albumin 2.4 L Globulin 4.1 Albumin/Globulin Ratio 0.6 L 06/23/20 06/24/20 06/24/20 10:13 05:42 05:42 WBC Pending RBC Pending Hgb Pending Hct Pending MCV Pending MCH Pending MCHC Pending RDW Std Deviation Pending RDW Coeff of Mika Pending Plt Count Pending MPV Immature Gran % (Auto) Neut % (Auto) Pending Lymph % (Auto) Jasper % (Auto) Eos % (Auto) Baso % (Auto) Absolute Neuts (auto) Pending Absolute Lymphs (auto) Nucleated RBC % PT INR APTT Sodium Pending Potassium Pending Chloride Pending Carbon Dioxide Pending Anion Gap Pending BUN Pending Creatinine Pending Estim Creat Clear Calc Est GFR (MDRD) Af Amer Pending Est GFR (MDRD) Non-Af Pending BUN/Creatinine Ratio Pending Glucose Pending Lactic Acid 1.9 Calcium Pending Total Bilirubin AST ALT Alkaline Phosphatase Total Protein Albumin Globulin Albumin/Globulin Ratio Clinical Impression(s) from Imaging Studies Chest X-Ray 06/23/20 10:12 IMPRESSION: Increased interstitial markings in both lungs with areas of confluence. Blunting of both cause phrenic angles. Findings may represent a combination of infectious process such as an interstitial pneumonia superimposed on CHF. Electronically Signed: Pop Pimentel, at 11:12 EST , Service support , Current Medications Acetaminophen (Acetaminophen 325 Mg Tablet) 650 mg PO Q6H PRN PRN PRN Reason: Pain Score 1-10 Last Admin: 06/24/20 03:34 Dose: 650 mg Documented by: Alprazolam (Alprazolam 0.5 Mg Tablet) 0.5 mg PO QHS PRN PRN Reason: ANXIETY Aspirin (Aspirin 81 Mg Tab.Chew) 81 mg PO DAILY@0800 [facility] Heparin Sodium (Porcine) (Heparin Injection (Vial) 5,000 Unit/Ml Vial) 5,000 unit SC Q12 [facility] Last Admin: 06/23/20 20:08 Dose: 5,000 unit Documented by: Piperacillin Sod/Tazobactam (Sod 3.375 gm/ Sodium Chloride) 50 mls @ 12.5 mls/hr IV Q12 [facility] Last Infusion: 06/24/20 00:23 Dose: Infused Documented by: Dopamine HCl/Dextrose () 800 mg in 250 mls @ 16.125 mls/hr CONT INF .[id number] [facility]; Protocol Last Titration: 06/24/20 06:02 Dose: 17.5 mcg/kg/min, 28.2 mls/hr Documented by: Ibuprofen (Ibuprofen 400 Mg Tablet) 400 mg PO Q6H PRN PRN PRN Reason: Pain Score 1-10 Last Admin: 06/24/20 00:26 Dose: 400 mg Documented by: Prednisone (Prednisone 5 Mg Tablet) 2.5 mg PO BIDCM [facility] Last Admin: 06/23/20 15:59 Dose: 2.5 mg Documented by: Sevelamer Carbonate (Sevelamer Carbonate 800 Mg Tablet) 1,600 mg PO TIDCM [facility] Last Admin: 06/23/20 17:25 Dose: 1,600 mg Documented by: Sodium Chloride (0.9% Saline Lock 10 Ml Syringe) 10 - 40 ml IV UD PRN PRN Reason: SALINE FLUSH Last Admin: 06/23/20 20:42 Dose: 40 ml Documented by: Assessment/Plan All Active Problems (Last Reviewed 06/16/20 @ 07:[address] Marc Snow MD) Generalized weakness (Acute) ESRD (end stage renal disease) on dialysis (Acute) Hyperkalemia (Acute) Symptomatic bradycardia (Acute) Chest pain (Acute) Septic shock (Acute) Pneumonia due to COVID-19 virus (Acute) Healthcare-associated pneumonia (Acute) COVID-19 (Acute) Hypoxia (Acute) Shortness of breath (Acute) Hyponatremia (Acute) RECOMMENDATIONS: 1. Continue dopamine. Given the patient's symptomatic bradycardia and history of amyloid, recommend cardiology consultation. 2. Nephrology following to assist with hemodialysis needs. 3. Place temporary hemodialysis catheter. 4. Antimicrobials can be discontinued from my perspective. 5. Wean supplemental oxygen to maintain saturations at or above 90%. 6. Encourage incentive spirometer use and mobilize patient as tolerated. IMPRESSIONS: 1. Symptomatic bradycardia and hypotension Potentially related to beta-azra utilization. However, the patient does reportedly have a history of amyloidosis which can affect the conduction system. For now, the patient will be continued on dopamine with plans for dialysis later this morning. If the patient does not improve from a cardiac perspective following dialysis and cessation of beta-blockade, may need to consider pacemaker placement. Recommend complete discontinuation of beta-azra at discharge. 2. Recent diagnosis of COVID-19 pneumonia No additional work-up or intervention is required at this time. Continue supplemental oxygen as needed to maintain saturations at or above 90%. 3. End-stage renal disease on hemodialysis Nephrology is following to assist with hemodialysis needs. Plan for temporary HD line placement due to nonfunctioning fistula. This note was generated with Cumulocityation software. It may contain incorrect words, spelling, and punctuation that were not noted in checking the note before signing. Inpatient E&M: 44557 Init Hosp L3
[2020-06-24 06:06] LABS: Absolute Lymphocyte Count 2.25 X10^3/uL (0.83-4.51); Absolute Neutrophil Count 20.1 X10^3/uL (2.0-7.7); Basophil# 0.09 X10^3/uL; Basophil% 0.4 % (0-1); Eosinophil# 0.11 X10^3/uL; Eosinophils% 0.5 % (0-5); Hematocrit 32.2 % (37-47); Hemoglobin 9.5 g/dL (12.0-15.0); Lymphocyte # 2.25 X10^3/ul (4.0); Lymphocyte % 9.4 % (19-41); Mean Corp Hgb Conc 29.5 g/dL (32-36); Mean Corpuscular Hgb 28.8 pg (27.0-32.0); Mean Corpuscular Volume 97.6 fL (81-99); Mean Platelet Vol. 10.2 fl (6.2-12.0); Monocyte# 0.66 X10^3/uL; Monocyte% 2.8 % (0-10); NRBC Flagged by Analyzer 1.1 % (0-5); Neutrophil % 83.9 % (47-70); POSITIVE DIFFERENTIAL YES; Platelet Count 373 K/mm3 (150-450); RBC Distribution Width CV 17.4 % (11.6-14.6); RBC Distribution Width SD 59.7 fl (35.1-43.9); White Blood Count 23.9 K/mm3 (4.4-11.0)
[2020-06-24 06:08] LABS: Differential Indicated SCAN CRITERIA MET
[2020-06-24 06:30] LABS: Differential Comment SCANNED
--- NOTE | 2020-06-24 06:54 | NURSING ---
hr dropping to 39. increased dopamine to 20mcq
--- NOTE | 2020-06-24 08:30 | RAD_ITS ---
STUDY: X-RAY CHEST REASON FOR EXAM: Female, 64 years old. TEMPORARY DIALYSIS CATH PLACEMENT TECHNIQUE: Single AP portable view of the chest. COMPARISON: Comparison is made with prior examination done earlier in the day at 5:39 AM. FINDINGS: A right sided temporary dialysis catheter has been placed. The tip is at the junction of the superior vena cava and right atrium. Persistent vascular congestion and mild CHF with increased markings at the lung bases more prominent on the left side. Blunting of both costophrenic angles. There is mild cardiac enlargement. Normal mediastinum and christine. Normal visualized pulmonary arteries. There is atherosclerotic calcification of the aortic arch with tortuosity. There are diffuse degenerative changes of the visualized thoracic spine. Bilateral shoulder replacement. There is no demonstrated abnormality of the visualized soft tissue structures of the upper abdomen. RAD/CXR for Line Placement IMPRESSION: The tip of the dialysis catheter is at the junction of the superior vena cava and right atrium. Persistent mild degree of CHF with blunting of both content angles and bibasilar atelectasis more prominent on the left side. Electronically Signed: Pop Pimentel, at 9:09 EST , Service support ,
[2020-06-24] MEDS: Heparin 10,000 UNITS/10 ML Vial 2600 UNITS IV (08:53)
[2020-06-24] MEDS: SEVELAMER CARBONATE 800 MG TABLET 1600 MG PO ×2 (08:54→16:31)
[2020-06-24] MEDS: Heparin Injection (Vial) 5,000 UNIT/ML VIAL 5000 UNIT SC ×2 (08:54→19:48)
[2020-06-24] MEDS: predniSONE 5 MG Tablet 2.5 MG PO ×2 (08:54→16:30)
[2020-06-24] MEDS: Aspirin 81 MG TAB.CHEW PO (08:54)
--- NOTE | 2020-06-24 09:09 | CON.PCM_ITS ---
Problem List (1) Symptomatic bradycardia Status: Acute (2) Amyloidosis Status: Chronic (3) Pneumonia due to COVID-19 virus Status: Acute (4) Dialysis patient Status: Chronic Reason for Consult Date of Consultation: 06/24/20 History of Present Illness: The patient is a 64 year old white female with a past history which has included amyloidosis and end-stage renal disease on chronic hemodialysis who was referred for evaluation of symptomatic bradycardia in the setting of being Covid 19+/pneumonia. She states that she does not traditionally follow, to the best of her knowledge, with a electro mechanical designer as an outpatient. She has been evaluated by cardiology at [facility] in the past in August and September of this year (Dr. Reed and Dr. Soler) concerns of abnormal troponin I levels which were thought at the time to be related to her end-stage renal disease with consideration for future outpatient follow-up from a noninvasive standpoint and then additional evaluation as deemed appropriate. However she has not presented back for any additional cardiovascular evaluation. She has been found in the past to have concerns of bradycardia. She has been on medical management with beta-blockers. Apparently the dose has been decreased over time. It appears that in the past she has undergone hemodialysis which is demonstrated improvement in her underlying cardiac rate/rhythm. She has presented recently for diagnosis of COVID-19. She was eventually released home. She returned to the hospital based on concerns of feeling weak. She appears denies any ongoing chest discomfort and does not seem to suggest any acute shortness of breath or dyspnea. She has had no ongoing lower extremity p eripheral pitting edema. She denies any near-syncope or syncope. In the hospital she has been found to have a indeterminate troponin I level. Based upon review of her cardiac enzyme levels it appears she has a history of chronically indeterminate troponin I levels. She had an ECG which demonstrated normal sinus rhythm, left axis deviation, low voltage QRS in the limb leads, poor R wave progression, and in for TN pattern of indeterminate age which cannot be excluded, and T wave changes-consider myocardial ischemia-lateral. She has had a previous transthoracic echocardiogram performed in August of this year. The results are as noted below. She has been noted to have concerns of marked sinus bradycardia with ventricular rates in the 20s and 30s. She had diminished systolic blood pressure. She had been treated with additional medical therapy which have included octagon, atropine, and IV dopamine. She was undergoing hemodialysis yesterday. Her right forearm AV fistula was reported as thrombosed. Thus her dialysis was interrupted. She is now status post placement of a temporary dialysis catheter through the right internal jugular approach this a.m. She is now pending continuation of her hemodialysis. To the best of her knowledge she does not recall ever being told she has any amyloidosis related issues with respect to her heart. [] Past Medical History Allergies/Adverse Reactions: Allergies No Known Allergies Allergy (Verified 06/23/20 10:05) Home Medications: Ambulatory Orders Medication Instructions Recorded Prednisone 5 mg PO DAILY 01/16/18 Aspirin [Aspirin, Baby] 81 mg PO DAILY@0800 10/29/19 Sevelamer Carbonate 240 mg PO TIDCM 10/29/19 Acetaminophen [Tylenol Tablet] 650 mg PO Q6H PRN PRN #30 tab 10/31/19 Ibuprofen [Motrin] 400 mg PO Q6H PRN PRN #30 tab 10/31/19 Alprazolam [Xanax] 1 mg PO TID PRN PRN 06/23/20 Fluticasone 0.05% [Flonase Nasal 2 spray NASAL DAILY 06/23/20 [place]] Metoprolol(XL)Succ [Toprol Xl 25 mg PO BID 06/23/20 (Beta Azra)] Prednisone 2.5 mg PO 1200 06/23/20 Past Medical History (Chronic Problems): Chronic Problems (Last Reviewed 06/16/20 @ 07:[address] 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 Paternal History Items: Diabetes, - Lives: Spouse/ Significant Other Smoking Status: Never smoker Tobacco Use: Non-smoker Alcohol: None Drugs: None Review of Systems - Review of Systems General: Reports: Weakness. Denies: Fever, Fatigue, Night Sweats Cardiovascular: Denies: Chest Discomfort, Shortness of Breath, Orthopnea, PND, Peripheral Edema, Palpitations, Lightheadedness, Dizziness, Near Syncope, Syncope Respiratory: Denies: Cough, Sputum Production, Hemoptysis Gastrointestinal: Denies: Hematemesis, Hematochezia, Melena Genitourinary: Denies: Dysuria, Hematuria Skin: Denies: Rash Subjectve: This is a 64-year-old white female who appears to be resting comfortably at the moment in no acute distress. Objective: Vital Signs Temp Pulse Resp BP Pulse Ox 98 F 39 L 17 103/45 L 99 06/24/20 03:58 06/24/20 07:02 06/24/20 07:02 06/24/20 07:02 06/24/20 07:02 Oxygen Flow Rate (L/min) 2 Oxygen Delivery Method Nasal Cannula Weight: 190 lb 11.198 oz Body Mass Index (BMI) 30.6 Finger Stick Blood Glucose 143 Intake and Output for Last 24 Hours 06/22/20 06/23/20 06/24/20 23:59 23:59 23:59 Intake Total 474.53 / 474.53 327.02 / 327.02 Balance 474.53 / 474.53 327.02 / 327.02 General: Awake, Alert, Oriented x 3, Cooperative, No Acute Distress, Obese HEENT: Atraumatic, Normocephalic, PERRL, EOMI, Sclera Non Icteric Lungs: - - No obvious rales or rhonchi Cardiovascular: Regular Rhythm, Normal S1, Normal S2 Abdomen: Bowel Sounds Present, Soft Extremities: No edema Psych/Mental Status: Flat Affect 06/23/20 10:13: WBC 15.6 H, RBC 2.99 L, Hgb 8.7 L, Hct 28.6 L, MCV 95.7, MCH 29.1, MCHC 30.4 L, Plt Count 554 H, MPV 9.8, Immature Gran % (Auto) 0.500, Neut % (Auto) 84.1 H, Lymph % (Auto) 9.9 L, Barren % (Auto) 4.5, Eos % (Auto) 0.7, Baso % (Auto) 0.3, Absolute Neuts (auto) 13.1 H, Nucleated RBC % 0.3 06/23/20 10:13: PT 14.5, INR 1.2, APTT 29.3 06/23/20 10:13: Sodium 129 L, Potassium 5.3 H, Chloride 92 L, Carbon Dioxide 27.0, Anion Gap 10, BUN 93 H, Creatinine 8.24 H*, Est GFR (MDRD) Af Amer 6 L, Est GFR (MDRD) Non-Af 5 L, BUN/Creatinine Ratio 11.3, Glucose 130 H, Calcium 8.3 L, Total Bilirubin 0.80 06/23/20 10:13: Lactic Acid 1.9 06/24/20 05:42: WBC 23.9 H, RBC 3.30 L, Hgb 9.5 L, Hct 32.2 L, MCV 97.6, MCH 28.8, MCHC 29.5 L, Plt Count 373, MPV 10.2, Immature Gran % (Auto) 3.000 H, Neut % (Auto) 83.9 H, Lymph % (Auto) 9.4 L, Barren % (Auto) 2.8, Eos % (Auto) 0.5, Baso % (Auto) 0.4, Absolute Neuts (auto) 20.1 H, Nucleated RBC % 1.1 06/24/20 05:42: Sodium Cancelled, Potassium Cancelled, Chloride Cancelled, Carbon Dioxide Cancelled, Anion Gap Cancelled, BUN Cancelled, Creatinine Cancelled, Est GFR (MDRD) Af Amer Cancelled, Est GFR (MDRD) Non-Af Cancelled, BUN/Creatinine Ratio Cancelled, Glucose Cancelled, Calcium Cancelled 06/24/20 07:30: Sodium Cancelled, Potassium Cancelled, Chloride Cancelled, Carbon Dioxide Cancelled, Anion Gap Cancelled, BUN Cancelled, Creatinine Cancelled, Est GFR (MDRD) Af Amer Cancelled, Est GFR (MDRD) Non-Af Cancelled, BUN/Creatinine Ratio Cancelled, Glucose Cancelled, Calcium Cancelled Rhythm: Marked sinus bradycardia EKG: As noted above ECHO: 09-07-2019 Interpretation Summary Normal LV size. Left ventricular systolic function is normal. The estimated ejection fraction is 55-60 %. The left atrium is moderately enlarged. Mild-Moderate (1-2+) mitral valve insufficiency. Mild (1+) tricuspid valve insufficiency. No aortic valve insufficiency. Pulmonary artery systolic pressure is 54 mmHg. Mild Pulmonary HTN CXR: Post CVC placement: Preliminary report: Question of increased pulmonary vascularity: Final report pending Assessment/Plan 1. Marked sinus bradycardia The patient has marked sinus bradycardia. At the moment there is concerned this could be related to her beta-blockers. Thus she is being monitored. Her beta-blockers been placed on hold. She has had supportive medical therapy with glucagon, atropine, and IV dopamine. She is pending reinitiation of hemodialysis. Hopefully this will help with respect to improving her underlying metabolic status, as it reportedly has done in the past, allowing her heart rate to increase. It is unclear at this time as to whether her marked sinus bradycardia is related to her history of amyloidosis. If after holding her beta-blockers and dialysis her marked sinus bradycardia and/or conduction system concerns continue the and there may be a concern this could be related to her amyloidosis. If over time despite holding her medications and proceeding with dialysis her marked sinus bradycardia and/or she has other underlying conduction system related issues then she may need to be considered for further supportive therapy such as permanent pacemaker support. 2. Amyloidosis Ther patient's been diagnosed with amyloidosis. Her cardiovascular evaluation at the [facility] in the past included an echocardiogram. The results are as noted. She states to the best of her knowledge she does not know of any cardiac amyloidosis diagnosis. At the present time she will continue evaluation care per internal medicine as well as her other subspecialist. 3. COVID-19 positive/pneumonia She has been diagnosed with COVID-19 positive. There have been concerns of pneumonia. She has been evaluated by internal medicine and pulmonology/critical care medicine. She is continuing supportive care at this time. She has not required mechanical intubation/ventilation. 4. End-stage renal disease/chronic hemodialysis She does have a history of end-stage renal disease and is on chronic hemodialysis. Her right forearm AV fistula is reported as thrombosed. She is now status post placement of a temporary IJ dialysis catheter. She will reinitiate dialysis therapy with the hopes this will improve her overall volume status, clear her medications, and improve her cardiac rate and rhythm. Comment: The patient's case has been discussed and reviewed with the patient, Dr. Sterling, Dr. Linton, and Dr. Soler who has evaluated the patient in the past as well. This note was generated using a voice recognition system and there may be incorrect words, spelling or punctuation that were not noted when reviewing the office note prior to saving.
[2020-06-24 09:38] LABS: Anion Gap 21 (5-15); BUN 103 mg/dL (7-18); Calcium,Total 8.6 mg/dL (8.5-10.1); Chloride 91 mmol/L (98-107); Creatinine, Serum 9.34 mg/dL (0.55-1.02); EST Glomerular Filtration Rate 5 mL/min (>60); Est Glom Filt Rate - Afr Amer 5 mL/min (>60); Glucose 53 mg/dL (74-106); Potassium 8.1 mmol/L (3.5-5.1); Sodium Level 126 mmol/L (136-145)
--- NOTE | 2020-06-24 09:45 | OP.PCM_ITS ---
Report of Operation Date of Procedure: 06/24/20 Surgery/Procedure Performed:: Temporary hemodialysis catheter insertion Description of Surgical Findings:: Temporary hemodialysis catheter line placement procedure note Indication: Hemodialysis Procedure: A time-out was completed to verify correct patient, indication, medication allergies, procedure, coagulation studies, informed consent signed, and equipment needed. The patient was placed in the supine position for a central line placement to the rt IJ vein. The patients rt neck was prepped using chlorhexidine and a full body sterile drape was applied. 1% lidocaine was used to anesthetize the surrounding skin. A 12fr 16 cm Temporary hemodialysis catheter introduced into the internal jugular vein using the modified Seldinger technique with the assistance of ultrasound. The site was dilated up twice in a stepwise fashion. The catheter was threaded smoothly over the guidewire, the guidewire was removed easily, nonpulsatile blood returned. All ports were aspirated of air and flushed with sterile saline Then locked with you 1000 hep mary 1.3 mL to each port. The catheter was sutured in place and covered with an occlusive dressing impregnated with chlorhexidine. Post-procedure: The patient tolerated the procedure well. Vital signs remained stable. EBL 8 cc. No complications. Chest X Ray ordered to confirm tip placement and the absence of pneumothorax. Procedures: [id number] Insert Non-tunnel CV Cath
[2020-06-24 11:40] LABS: Anion Gap 24 (5-15); BUN 107 mg/dL (7-18); BUN/Creat Ratio 11.3 RATIO (10-20); Calcium,Total 8.9 mg/dL (8.5-10.1); Chloride 91 mmol/L (98-107); Creatinine, Serum 9.45 mg/dL (0.55-1.02); EST Glomerular Filtration Rate 4 mL/min (>60); Est Glom Filt Rate - Afr Amer 5 mL/min (>60); Estimated Creatinine Clearance 5.63 ml/min; Glucose 51 mg/dL (74-106); Potassium 8.2 mmol/L (3.5-5.1); Sodium Level 127 mmol/L (136-145)
--- NOTE | 2020-06-24 12:59 | CHAPLAIN ---
Type of Pastoral Visit ___ Initial Visit ___ Follow-up Visit ___ On-call Visit ___ General Patient Visit ___ Spiritual Assessment ___ Family Conference ___ Bereavement ___ Rapid Response ___ Code Blue _x__ Other (describe below) Pastoral Care Referral From _x__ Patient ___ Family ___ Nurse ___ Physician ___ Printing Worker Supervisor ___ [employer] Teacher ___ Other (describe below) Sacrament/Intervention ___ Active listening ___ Anointing ___ Restorationism ___ Bereavement ___ Communion ___ Rose exploration ___ ___ Life review ___ Prayer ___ Reconciliation ___ Sacrament of Sick ___ Supportive presence ___ Wedding ___ Other (describe below) Pastoral Comments information on patient was given by her RN; pt is having dialysis and is weak which means it is not a good time for a phone call; this group leader will try to make contact another day; this group leader asked RN to let pt know of support that is available
--- NOTE | 2020-06-24 14:01 | NURSING ---
Called patient bedside to do initial assessment, no answer. Called patient Andrwe Centeno at listed cell on demographics [phone]- no answer, left a VM to call this rewriter back. Juan Sanchez RNCM
--- NOTE | 2020-06-24 16:45 | DIALYSIS ---
HD x4 hours completed at 1450, 1K x2.5hrs, 2K remainder of tx, tolerated well, UF 4000mL, accessed via new right neck temporary dialysis catheter, worked well, next tx planned for tomorrow
--- NOTE | 2020-06-24 16:47 | PCM.HP.ID ---
Problem List (1) Pneumonia due to COVID-19 virus Status: Acute Reason for Consult: covid Consulted by: Dr. Sterling History of Present Illness: The patient is a 64 year old F with amyloid, ESRD, admitted 06/15 with covid, sx started around 06/11. Discharged home soon after admit, was not having hypoxia. Now back with weakness, chest pain, cough, and dyspnea. HD today. Was 88% on RA on admit. Full ROS performed and neg except as noted above. - Medical History Past Medical History (Chronic Problems): Chronic Problems (Last Reviewed 06/16/20 @ 07:[address] Marc Snow MD) NSTEMI (non-ST elevated myocardial infarction) (Chronic) Dialysis patient (Chronic) Elevated troponin (Chronic) Congestive heart failure (Chronic) Rheumatoid arthritis (Chronic) Amyloidosis (Chronic) CKD (chronic kidney disease) stage 4, GFR 15-29 ml/min (Chronic) Renal anasarca (Chronic) Allergies/Adverse Reactions: Allergies No Known Allergies Allergy (Verified 06/23/20 10:05) Home Medications: Ambulatory Orders Medication Instructions Recorded Prednisone 5 mg PO DAILY 01/16/18 Aspirin [Aspirin, Baby] 81 mg PO DAILY@0800 10/29/19 Sevelamer Carbonate 240 mg PO TIDCM 10/29/19 Acetaminophen [Tylenol Tablet] 650 mg PO Q6H PRN PRN #30 tab 10/31/19 Ibuprofen [Motrin] 400 mg PO Q6H PRN PRN #30 tab 10/31/19 Alprazolam [Xanax] 1 mg PO TID PRN PRN 06/23/20 Fluticasone 0.05% [Flonase Nasal 2 spray NASAL DAILY 06/23/20 [place]] Metoprolol(XL)Succ [Toprol Xl 25 mg PO BID 06/23/20 (Beta Azra)] Prednisone 2.5 mg PO 1200 06/23/20 - Social History Tobacco Use: non-smoker Vital Signs Temp Pulse Resp BP Pulse Ox 98 F 85 18 116/70 98 06/24/20 14:50 06/24/20 14:50 06/24/20 14:50 06/24/20 14:50 06/24/20 14:50 Oxygen Flow Rate (L/min) 3 Oxygen Delivery Method Nasal Cannula Weight: 86.5 kg Body Mass Index (BMI) 30.6 Finger Stick Blood Glucose 143 Laboratory Tests Past 24 Hrs 06/24/20 06/24/20 06/24/20 05:42 05:42 07:30 WBC 23.9 H RBC 3.30 L Hgb 9.5 L Hct 32.2 L MCV 97.6 MCH 28.8 MCHC 29.5 L RDW Std Deviation 59.7 H RDW Coeff of Mkia 17.4 H Plt Count 373 MPV 10.2 Immature Gran % (Auto) 3.000 H Neut % (Auto) 83.9 H Lymph % (Auto) 9.4 L [place] % (Auto) 2.8 Eos % (Auto) 0.5 Baso % (Auto) 0.4 Absolute Neuts (auto) 20.1 H Absolute Lymphs (auto) 2.25 Nucleated RBC % 1.1 Differential Comment SCANNED Sodium Cancelled Cancelled Potassium Cancelled Cancelled Chloride Cancelled Cancelled Carbon Dioxide Cancelled Cancelled Anion Gap Cancelled Cancelled BUN Cancelled Cancelled Creatinine Cancelled Cancelled Estim Creat Clear Calc Cancelled Cancelled Est GFR (MDRD) Af Amer Cancelled Cancelled Est GFR (MDRD) Non-Af Cancelled Cancelled BUN/Creatinine Ratio Cancelled Cancelled Glucose Cancelled Cancelled Calcium Cancelled Cancelled 06/24/20 06/24/20 08:40 10:55 WBC RBC Hgb Hct MCV MCH MCHC RDW Std Deviation RDW Coeff of Mika Plt Count MPV Immature Gran % (Auto) Neut % (Auto) Lymph % (Auto) [place] % (Auto) Eos % (Auto) Baso % (Auto) Absolute Neuts (auto) Absolute Lymphs (auto) Nucleated RBC % Differential Comment Sodium 126 L 127 L Potassium 8.1 H* 8.2 H* Chloride 91 L 91 L Carbon Dioxide 14.0 L 12.0 L Anion Gap 21 H 24 H BUN 103 H* 107 H* Creatinine 9.34 H* 9.45 H* Estim Creat Clear Calc 5.70 5.63 Est GFR (MDRD) Af Amer 5 L 5 L Est GFR (MDRD) Non-Af 5 L 4 L BUN/Creatinine Ratio 11.0 11.3 Glucose 53 L 51 L Calcium 8.6 8.9 - Other Studies Radiology: [] reviewed Other Studies: [] Route of nutrition/ use of supplements: [] Nutritional Intake: [] IV Site: [] Rivas Catheter: [] - Physical Exam General: Alert, Oriented x3, Cooperative, - - ill appearing HEENT: Atraumatic, PERRLA, EOMI Neck: Supple, No Nodes Lungs: Diminished Cardiovascular: Regular rate, Regular Rhythm Abdomen: Soft, Non Tender, Non-Distended Extremities: No edema Skin: No rashes IV Site: Peripheral, without redness Musculoskeletal: No Tenderness to Palpation of Joints or Extremities Neurological: Cranial nerves II-XII grossly intact - Assessment/Plan Antibiotics: [] Assessment/Plan: [] Active and Suspected Problems (Last Reviewed 06/16/20 @ 07:[address] Marc Snow MD) Generalized weakness (Acute) Symptomatic bradycardia (Acute) Pneumonia due to COVID-19 virus (Acute) Healthcare-associated pneumonia (Acute) COVID-19 (Acute) Hypoxia (Acute) Shortness of breath (Acute) covid - sx started around 06/11, so likely minimal benefit from plasma or remdesivir. Is having hypoxia, so will start dex. On heparin. Will follow, thank you
--- NOTE | 2020-06-24 16:48 | PCM.PROGNOTE ---
Patient Problems: Active and Suspected Problems (Last Reviewed 06/16/20 @ 07:[address] Marc Snow MD) Generalized weakness (Acute) Symptomatic bradycardia (Acute) Pneumonia due to COVID-19 virus (Acute) Healthcare-associated pneumonia (Acute) COVID-19 (Acute) Hypoxia (Acute) Shortness of breath (Acute) Subjective: Patient was seen and examined today, he dialysis catheter was placed this morning and the patient had dialysis, her heart rate is better and her blood pressure overall is better. Repeat chest x-ray this morning before dialysis showed improving infiltrates in both lungs. Patient's white blood cell count however was more elevated today than yesterday. Patient's potassium this morning was 8.2, creatinine was 9.45-before dialysis. Critical care discontinue the patient's antibiotics today, I have not seen the consultation from infectious diseases at the time of this dictation today. - Physical Exam Vitals/I&O's: Vital Signs Temp Pulse Resp BP Pulse Ox 98 F 85 18 116/70 98 06/24/20 14:50 06/24/20 14:50 06/24/20 14:50 06/24/20 14:50 06/24/20 14:50 Oxygen Flow Rate (L/min) 3 Oxygen Delivery Method Nasal Cannula Weight: 86.5 kg Body Mass Index (BMI) 30.6 Finger Stick Blood Glucose 143 Intake and Output for Last 24 Hours 06/22/20 06/23/20 06/24/20 23:59 23:59 23:59 Intake Total 474.53 / 474.53 521.29 / 521.29 Output Total 4000 / 4000 Balance 474.53 / 474.53 -3478.71 / -3478.71 General: Alert, Oriented x3, Cooperative, No apparent distress, Well developed HEENT: Atraumatic, PERRLA, EOMI, Normocephalic Oral: Moist Mucosa Neck: Supple, No JVD, Negative Carotid Bruits, Trachea Midline, Thyroid Normal Size and Texture Lungs: Clear to auscultation, No rhonchi, No wheeze, Diminished Cardiovascular: Regular rate, Regular Rhythm, Normal S1, Normal S2, No murmurs, PMI Normal, No rub noted, No Gallop Abdomen: Bowel Sounds Present, Soft, Non Tender, Non-Distended Extremities: No clubbing, No cyanosis, Capillary Refill Less than 3 Seconds Skin: No rashes, No breakdown Musculoskeletal: No Tenderness to Palpation of Joints or Extremities Neurological: Cranial nerves II-XII grossly intact, Neuro grossly intact, Sensory exam intact to light touch and pain, Coordination normal Psych/Mental Status: Normal Affect, Appropriate, Alert and oriented to time, place, person, mood and affect Laboratory Results 06/24/20 05:42: WBC 23.9 H, RBC 3.30 L, Hgb 9.5 L, Hct 32.2 L, MCV 97.6, MCH 28.8, MCHC 29.5 L, RDW Std Deviation 59.7 H, RDW Coeff of Mika 17.4 H, Plt Count 373, MPV 10.2, Immature Gran % (Auto) 3.000 H, Neut % (Auto) 83.9 H, Lymph % (Auto) 9.4 L, [place] % (Auto) 2.8, Eos % (Auto) 0.5, Baso % (Auto) 0.4, Absolute Neuts (auto) 20.1 H, Absolute Lymphs (auto) 2.25, Nucleated RBC % 1.1, Differential Comment SCANNED 06/24/20 05:42: Sodium Cancelled, Potassium Cancelled, Chloride Cancelled, Carbon Dioxide Cancelled, Anion Gap Cancelled, BUN Cancelled, Creatinine Cancelled, Estim Creat Clear Calc Cancelled, Est GFR (MDRD) Af Amer Cancelled, Est GFR (MDRD) Non-Af Cancelled, BUN/Creatinine Ratio Cancelled, Glucose Cancelled, Calcium Cancelled 06/24/20 07:30: Sodium Cancelled, Potassium Cancelled, Chloride Cancelled, Carbon Dioxide Cancelled, Anion Gap Cancelled, BUN Cancelled, Creatinine Cancelled, Estim Creat Clear Calc Cancelled, Est GFR (MDRD) Af Amer Cancelled, Est GFR (MDRD) Non-Af Cancelled, BUN/Creatinine Ratio Cancelled, Glucose Cancelled, Calcium Cancelled 06/24/20 08:40: Sodium 126 L, Potassium 8.1 H*, Chloride 91 L, Carbon Dioxide 14.0 L, Anion Gap 21 H, BUN 103 H*, Creatinine 9.34 H*, Estim Creat Clear Calc 5.70, Est GFR (MDRD) Af Amer 5 L, Est GFR (MDRD) Non-Af 5 L, BUN/Creatinine Ratio 11.0, Glucose 53 L, Calcium 8.6 06/24/20 10:55: Sodium 127 L, Potassium 8.2 H*, Chloride 91 L, Carbon Dioxide 12.0 L, Anion Gap 24 H, BUN 107 H*, Creatinine 9.45 H*, Estim Creat Clear Calc 5.63, Est GFR (MDRD) Af Amer 5 L, Est GFR (MDRD) Non-Af 4 L, BUN/Creatinine Ratio 11.3, Glucose 51 L, Calcium 8.9 Current Medications Acetaminophen (Acetaminophen 325 Mg Tablet) 650 mg PO Q6H PRN PRN PRN Reason: Pain Score 1-10 Last Admin: 06/24/20 03:34 Dose: 650 mg Documented by: Aspirin (Aspirin 81 Mg Tab.Chew) 81 mg PO DAILY@0800 [facility] Last Admin: 06/24/20 08:54 Dose: 81 mg Documented by: Dexamethasone (Dexamethasone 4 Mg Tablet) 6 mg PO DAILY@0800 [facility] Stop: 07/03/20 08:01 Heparin Sodium (Porcine) (Heparin Injection (Vial) 5,000 Unit/Ml Vial) 5,000 unit SC Q12 [facility] Last Admin: 06/24/20 08:54 Dose: 5,000 unit Documented by: Heparin Sodium (Porcine) (Heparin 10,000 Units/10 Ml Vial) 2,600 units IV DAILY PRN PRN Reason: Dialysis Dopamine HCl/Dextrose () 800 mg in 250 mls @ 16.125 mls/hr CONT INF .[id number] [facility]; Protocol Last Titration: 06/24/20 12:00 Dose: Infused Documented by: Ibuprofen (Ibuprofen 400 Mg Tablet) 400 mg PO Q6H PRN PRN PRN Reason: Pain Score 1-10 Last Admin: 06/24/20 16:31 Dose: 400 mg Documented by: Sevelamer Carbonate (Sevelamer Carbonate 800 Mg Tablet) 1,600 mg PO TIDCM [facility] Last Admin: 06/24/20 16:31 Dose: 1,600 mg Documented by: Sodium Chloride (0.9% Saline Lock 10 Ml Syringe) 10 - 40 ml IV UD PRN PRN Reason: SALINE FLUSH Last Admin: 06/23/20 20:42 Dose: 40 ml Documented by: Medical Necessity - Tobacco Use Smoking Status: Never smoker Tobacco Use: Non-smoker Assessment/Plan All Active Problems (Last Reviewed 06/16/20 @ 07:[address] Marc Snow MD) Generalized weakness (Acute) ESRD (end stage renal disease) on dialysis (Acute) Hyperkalemia (Acute) Symptomatic bradycardia (Acute) Chest pain (Acute) Septic shock (Acute) Pneumonia due to COVID-19 virus (Acute) Healthcare-associated pneumonia (Acute) COVID-19 (Acute) Hypoxia (Acute) Shortness of breath (Acute) Hyponatremia (Acute) #1 acute fluid overload secondary to end-stage renal disease and acute on chronic diastolic congestive heart failure-patient has been doing well since dialysis today, chest x-ray will be repeated tomorrow #2 bilateral infiltrates suggestive of pneumonia-? Healthcare acquired-critical care discontinued the patient's antibiotics today, as of the time of this dictation, infectious diseases is not entered their consultation. I have elected not to restart the patient's antibiotics. #3 end-stage renal disease with fluid overload-patient was dialyzed today #4 amyloidosis #5 bradycardia-probably secondary to beta-madhavi usage-critical care requested that cardiology see the patient, they did a consultation and felt that the patient's bradycardia was secondary to beta-madhavi usage and delayed clearance of the beta-madhavi due to end-stage renal disease. They recommended that the patient be kept off a beta-madhavi. Patient's heart rate is improved after her dialysis today #6 hypoxia-secondary to fluid overload and possible healthcare acquired pneumonia-pulse ox will be monitored, patient is currently on 2 L via nasal cannula #7 hypotension-possibly secondary to beta-madhavi usage, this is corrected since the patient has undergone dialysis. Inpatient E&M: 22198 Subs Hosp L2
--- NOTE | 2020-06-24 17:12 | CON.PCM_ITS ---
Problem List (1) ESRD (end stage renal disease) on dialysis Status: Acute (2) Hyperkalemia Status: Acute Consultation - Renal 06/24/20 PCP/ Referring MD: Requesting physician: [] Primary care physician: Dr. Jabier Arboleda DO Reason for Consultation:: ESRD - History of Present Illness History of Present Illness: The patient is a 64 year old F well known to us. ESRD on HD TTS schedule now due to COVID. previously MWF schedule. admitted with dyspnea. was admitted for fluid overload. could not be dialyzed yesterday due to clotted AVF. this am a temporary dialysis line was placed and she received dialysis. currently no complaints. - Allergies Allergies: Allergies No Known Allergies Allergy (Verified 06/23/20 10:05) - Current Medications Current Medications: Current Medications Acetaminophen (Acetaminophen 325 Mg Tablet) 650 mg PO Q6H PRN PRN PRN Reason: Pain Score 1-10 Last Admin: 06/24/20 03:34 Dose: 650 mg Documented by: Aspirin (Aspirin 81 Mg Tab.Chew) 81 mg PO DAILY@0800 [facility] Last Admin: 06/24/20 08:54 Dose: 81 mg Documented by: Dexamethasone (Dexamethasone 4 Mg Tablet) 6 mg PO DAILY@0800 [facility] Stop: 07/03/20 08:01 Heparin Sodium (Porcine) (Heparin Injection (Vial) 5,000 Unit/Ml Vial) 5,000 unit SC Q12 [facility] Last Admin: 06/24/20 08:54 Dose: 5,000 unit Documented by: Heparin Sodium (Porcine) (Heparin 10,000 Units/10 Ml Vial) 2,600 units IV DAILY PRN PRN Reason: Dialysis Dopamine HCl/Dextrose () 800 mg in 250 mls @ 16.125 mls/hr CONT INF .[id number] [facility]; Protocol Last Titration: 06/24/20 12:00 Dose: Infused Documented by: Ibuprofen (Ibuprofen 400 Mg Tablet) 400 mg PO Q6H PRN PRN PRN Reason: Pain Score 1-10 Last Admin: 06/24/20 16:31 Dose: 400 mg Documented by: Sevelamer Carbonate (Sevelamer Carbonate 800 Mg Tablet) 1,600 mg PO TIDCM [facility] Last Admin: 06/24/20 16:31 Dose: 1,600 mg Documented by: Sodium Chloride (0.9% Saline Lock 10 Ml Syringe) 10 - 40 ml IV UD PRN PRN Reason: SALINE FLUSH Last Admin: 06/23/20 20:42 Dose: 40 ml Documented by: - Past Medical History Past Medical History (Chronic Problems): Chronic Problems (Last Reviewed 06/16/20 @ 07:[address] Marc Snow MD) NSTEMI (non-ST elevated myocardial infarction) (Chronic) Dialysis patient (Chronic) Elevated troponin (Chronic) Congestive heart failure (Chronic) Rheumatoid arthritis (Chronic) Amyloidosis (Chronic) CKD (chronic kidney disease) stage 4, GFR 15-29 ml/min (Chronic) Renal anasarca (Chronic) - Past Surgical History Surgical History: - - Left forearm AV fistula - Social History Smoking Status: Never smoker Alcohol: None Drugs: None - Family History Maternal History Items: - - Denies known maternal medical history including cardiac history. Paternal History Items: Diabetes, - Review of Systems Constitutional: Denies: Chills, Fever, Weight Change HEENT: Denies: Head Aches, Sinus Congestion, Sinus Drainage Cardiovascular: Denies: Chest Pain, Palpitations Respiratory: Denies: Cough, Shortness of breath at rest, Sputum production Gastrointestinal: Denies: Abdominal Pain, Nausea, Vomiting Genitourinary: Denies: Dysuria Musculoskeletal: Denies: Joint Pain, Joint Tenderness Skin: Denies: Rash, Wounds Neurological: Denies: Numbness, Tingling, Focal weakness Psychiatric: Denies: Anxiety, Depression, Homicidal Ideations, Suicidal Ideations Hematologic/ Lymphatic: Denies: Easy Bruising, Easy Bleeding Patient Problems: Active and Suspected Problems (Last Reviewed 06/16/20 @ 07:[address] Marc Snow MD) Generalized weakness (Acute) Symptomatic bradycardia (Acute) Pneumonia due to COVID-19 virus (Acute) Healthcare-associated pneumonia (Acute) COVID-19 (Acute) Hypoxia (Acute) Shortness of breath (Acute) Objective: exam minimized due to covid discussed with staff - Physical Exam Vitals/I&O's: Vital Signs Temp Pulse Resp BP Pulse Ox 98 F 85 18 116/70 98 06/24/20 14:50 06/24/20 14:50 06/24/20 14:50 06/24/20 14:50 06/24/20 14:50 Oxygen Flow Rate (L/min) 2 Oxygen Delivery Method Nasal Cannula Weight: 86.5 kg Body Mass Index (BMI) 30.6 Finger Stick Blood Glucose 143 Intake and Output for Last 24 Hours 06/22/20 06/23/20 06/24/20 23:59 23:59 23:59 Intake Total 474.53 / 474.53 521.29 / 521.29 Output Total 4000 / 4000 Balance 474.53 / 474.53 -3478.71 / -3478.71 Laboratory Results 06/24/20 05:42: WBC 23.9 H, RBC 3.30 L, Hgb 9.5 L, Hct 32.2 L, MCV 97.6, MCH 28.8, MCHC 29.5 L, RDW Std Deviation 59.7 H, RDW Coeff of Mika 17.4 H, Plt Count 373, MPV 10.2, Immature Gran % (Auto) 3.000 H, Neut % (Auto) 83.9 H, Lymph % (Auto) 9.4 L, [place] % (Auto) 2.8, Eos % (Auto) 0.5, Baso % (Auto) 0.4, Absolute Neuts (auto) 20.1 H, Absolute Lymphs (auto) 2.25, Nucleated RBC % 1.1, Differential Comment SCANNED 06/24/20 05:42: Sodium Cancelled, Potassium Cancelled, Chloride Cancelled, Carbon Dioxide Cancelled, Anion Gap Cancelled, BUN Cancelled, Creatinine Cancelled, Estim Creat Clear Calc Cancelled, Est GFR (MDRD) Af Amer Cancelled, Est GFR (MDRD) Non-Af Cancelled, BUN/Creatinine Ratio Cancelled, Glucose Cancelled, Calcium Cancelled 06/24/20 07:30: Sodium Cancelled, Potassium Cancelled, Chloride Cancelled, Carbon Dioxide Cancelled, Anion Gap Cancelled, BUN Cancelled, Creatinine Cancelled, Estim Creat Clear Calc Cancelled, Est GFR (MDRD) Af Amer Cancelled, Est GFR (MDRD) Non-Af Cancelled, BUN/Creatinine Ratio Cancelled, Glucose Cancelled, Calcium Cancelled 06/24/20 08:40: Sodium 126 L, Potassium 8.1 H*, Chloride 91 L, Carbon Dioxide 14.0 L, Anion Gap 21 H, BUN 103 H*, Creatinine 9.34 H*, Estim Creat Clear Calc 5.70, Est GFR (MDRD) Af Amer 5 L, Est GFR (MDRD) Non-Af 5 L, BUN/Creatinine Ratio 11.0, Glucose 53 L, Calcium 8.6 06/24/20 10:55: Sodium 127 L, Potassium 8.2 H*, Chloride 91 L, Carbon Dioxide 12.0 L, Anion Gap 24 H, BUN 107 H*, Creatinine 9.45 H*, Estim Creat Clear Calc 5.63, Est GFR (MDRD) Af Amer 5 L, Est GFR (MDRD) Non-Af 4 L, BUN/Creatinine Ratio 11.3, Glucose 51 L, Calcium 8.9 Current Medications Acetaminophen (Acetaminophen 325 Mg Tablet) 650 mg PO Q6H PRN PRN PRN Reason: Pain Score 1-10 Last Admin: 06/24/20 03:34 Dose: 650 mg Documented by: Aspirin (Aspirin 81 Mg Tab.Chew) 81 mg PO DAILY@0800 [facility] Last Admin: 06/24/20 08:54 Dose: 81 mg Documented by: Dexamethasone (Dexamethasone 4 Mg Tablet) 6 mg PO DAILY@0800 [facility] Stop: 07/03/20 08:01 Heparin Sodium (Porcine) (Heparin Injection (Vial) 5,000 Unit/Ml Vial) 5,000 unit SC Q12 [facility] Last Admin: 06/24/20 08:54 Dose: 5,000 unit Documented by: Heparin Sodium (Porcine) (Heparin 10,000 Units/10 Ml Vial) 2,600 units IV DAILY PRN PRN Reason: Dialysis Dopamine HCl/Dextrose () 800 mg in 250 mls @ 16.125 mls/hr CONT INF .[id number] [facility]; Protocol Last Titration: 06/24/20 12:00 Dose: Infused Documented by: Ibuprofen (Ibuprofen 400 Mg Tablet) 400 mg PO Q6H PRN PRN PRN Reason: Pain Score 1-10 Last Admin: 06/24/20 16:31 Dose: 400 mg Documented by: Sevelamer Carbonate (Sevelamer Carbonate 800 Mg Tablet) 1,600 mg PO TIDCM [facility] Last Admin: 06/24/20 16:31 Dose: 1,600 mg Documented by: Sodium Chloride (0.9% Saline Lock 10 Ml Syringe) 10 - 40 ml IV UD PRN PRN Reason: SALINE FLUSH Last Admin: 06/23/20 20:42 Dose: 40 ml Documented by: Assessment/Plan All Active Problems (Last Reviewed 06/16/20 @ 07:[address] Marc Snow MD) Generalized weakness (Acute) ESRD (end stage renal disease) on dialysis (Acute) Hyperkalemia (Acute) Symptomatic bradycardia (Acute) Chest pain (Acute) Septic shock (Acute) Pneumonia due to COVID-19 virus (Acute) Healthcare-associated pneumonia (Acute) COVID-19 (Acute) Hypoxia (Acute) Shortness of breath (Acute) Hyponatremia (Acute) ESRD HYperkalemia fluid overload HD earlier today. EKG changes look better continue HD as per TTS schedule for now will need either a declot of tunneled dialysis catheter before discharge will reach out to surgery tomorrow
[2020-06-24] MEDS: ALPRAZolam 0.5 MG Tablet 1 MG PO (20:41)
[2020-06-24] MEDS: Calcium Carbonate 500 MG Tablet PO (20:41)
[2020-06-25] VITALS (13 sets, daily range): BP systolic 121–149; BP diastolic 51–92; PULSE 91–107; RESP 15–21; TEMP 36.5–37.2; O2SAT 92–98
[2020-06-25 05:42] LABS: Absolute Lymphocyte Count 1.42 X10^3/uL (0.83-4.51); Absolute Neutrophil Count 12.7 X10^3/uL (2.0-7.7); Basophil# 0.02 X10^3/uL; Basophil% 0.1 % (0-1); Eosinophil# 0.07 X10^3/uL; Eosinophils% 0.5 % (0-5); Hematocrit 26.2 % (37-47); Hemoglobin 8.3 g/dL (12.0-15.0); Lymphocyte # 1.42 X10^3/ul (4.0); Lymphocyte % 9.7 % (19-41); Mean Corp Hgb Conc 31.7 g/dL (32-36); Mean Corpuscular Hgb 29.2 pg (27.0-32.0); Mean Corpuscular Volume 92.3 fL (81-99); Mean Platelet Vol. 10.3 fl (6.2-12.0); Monocyte# 0.38 X10^3/uL; Monocyte% 2.6 % (0-10); NRBC Flagged by Analyzer 5.2 % (0-5); Neutrophil # 12.67 X10^3/uL (2.7-7.7); Neutrophil % 86.1 % (47-70); POSITIVE COUNT YES; POSITIVE MORPHOLOGY YES; Platelet Count 379 K/mm3 (150-450); RBC Distribution Width SD 53.8 fl (35.1-43.9); Red Blood Count 2.84 M/mm3 (4.2-5.4); White Blood Count 14.7 K/mm3 (4.4-11.0)
[2020-06-25 05:46] LABS: Differential Indicated SCAN CRITERIA MET
--- NOTE | 2020-06-25 06:01 | PCM.PN.PUL ---
Patient Problems: Active and Suspected Problems (Last Reviewed 06/16/20 @ 07:[address] Marc Snow MD) Generalized weakness (Acute) ESRD (end stage renal disease) on dialysis (Acute) Hyperkalemia (Acute) Symptomatic bradycardia (Acute) Pneumonia due to COVID-19 virus (Acute) Healthcare-associated pneumonia (Acute) COVID-19 (Acute) Hypoxia (Acute) Shortness of breath (Acute) Subjective: The patient was seen and examined at the bedside this morning. Events from the last 24 hours have been reviewed. The patient is currently afebrile, hemodynamically stable and maintaining appropriate oxygen saturations on room air. The patient tolerated 4 hours of hemodialysis yesterday with 4 L of fluid removed. The patient's bradycardia subsequently resolved. She is no longer requiring dopamine support. Objective: The patient's most recent lab work, culture data and imaging studies have all been personally reviewed. Surface echocardiogram from August 2019 revealed normal LV size with an ejection fraction of 55%. Pulmonary artery systolic pressure was estimated to be 54 mmHg. Coronavirus PCR was positive on June 15. Blood cultures have shown no growth to date. - Physical Exam Vitals/I&O's: Vital Signs Temp Pulse Resp BP Pulse Ox 98 F 92 17 121/51 H 97 06/25/20 03:40 06/25/20 03:40 06/25/20 03:40 06/25/20 03:40 06/25/20 03:40 Oxygen Flow Rate (L/min) 2 Oxygen Delivery Method Room Air Weight: 190 lb 11.198 oz Body Mass Index (BMI) 30.6 Finger Stick Blood Glucose 143 Intake and Output for Last 24 Hours 06/23/20 06/24/20 06/25/20 23:59 23:59 23:59 Intake Total 474.53 / 474.53 641.29 / 641.29 60 Output Total 4000 / 4000 Balance 474.53 / 474.53 -3358.71 / -3358.71 60 General: Alert, No apparent distress HEENT: Atraumatic, PERRLA, Normocephalic Oral: Moist Mucosa, No Gingival or Mucosal Lesions/ Ulcerations Neck: Supple, No Nodes, Trachea Midline, - - Stable temporary hemodialysis catheter. Lungs: No rhonchi, No wheeze, No rales, Diminished Cardiovascular: Regular rate, Regular Rhythm Abdomen: Bowel Sounds Present, Soft, Non Tender Extremities: No clubbing, No cyanosis Skin: No breakdown Musculoskeletal: No Tenderness to Palpation of Joints or Extremities, No Muscle Wasting Lymphatic: No Cervical, Supraclavicular, or Inguinal Adenopathy Neurological: Cranial nerves II-XII grossly intact, Neuro grossly intact Psych/Mental Status: Normal Affect, Appropriate Labs (Last 48 Hours) 06/23/20 06/23/20 06/23/20 10:13 10:13 10:13 WBC 15.6 H RBC 2.99 L Hgb 8.7 L Hct 28.6 L MCV 95.7 MCH 29.1 MCHC 30.4 L RDW Std Deviation 57.0 H RDW Coeff of Mika 17.0 H Plt Count 554 H MPV 9.8 Immature Gran % (Auto) 0.500 Neut % (Auto) 84.1 H Lymph % (Auto) 9.9 L [place] % (Auto) 4.5 Eos % (Auto) 0.7 Baso % (Auto) 0.3 Absolute Neuts (auto) 13.1 H Absolute Lymphs (auto) 1.55 Nucleated RBC % 0.3 Differential Comment PT 14.5 INR 1.2 APTT 29.3 Sodium 129 L Potassium 5.3 H Chloride 92 L Carbon Dioxide 27.0 Anion Gap 10 BUN 93 H Creatinine 8.24 H* Estim Creat Clear Calc 6.46 Est GFR (MDRD) Af Amer 6 L Est GFR (MDRD) Non-Af 5 L BUN/Creatinine Ratio 11.3 Glucose 130 H Lactic Acid Calcium 8.3 L Total Bilirubin 0.80 AST 50 H ALT 72 H Alkaline Phosphatase 371 H Total Protein 6.5 Albumin 2.4 L Globulin 4.1 Albumin/Globulin Ratio 0.6 L 06/23/20 06/24/20 06/24/20 10:13 05:42 05:42 WBC 23.9 H RBC 3.30 L Hgb 9.5 L Hct 32.2 L MCV 97.6 MCH 28.8 MCHC 29.5 L RDW Std Deviation 59.7 H RDW Coeff of Mika 17.4 H Plt Count 373 MPV 10.2 Immature Gran % (Auto) 3.000 H Neut % (Auto) 83.9 H Lymph % (Auto) 9.4 L [place] % (Auto) 2.8 Eos % (Auto) 0.5 Baso % (Auto) 0.4 Absolute Neuts (auto) 20.1 H Absolute Lymphs (auto) 2.25 Nucleated RBC % 1.1 Differential Comment SCANNED PT INR APTT Sodium Cancelled Potassium Cancelled Chloride Cancelled Carbon Dioxide Cancelled Anion Gap Cancelled BUN Cancelled Creatinine Cancelled Estim Creat Clear Calc Cancelled Est GFR (MDRD) Af Amer Cancelled Est GFR (MDRD) Non-Af Cancelled BUN/Creatinine Ratio Cancelled Glucose Cancelled Lactic Acid 1.9 Calcium Cancelled Total Bilirubin AST ALT Alkaline Phosphatase Total Protein Albumin Globulin Albumin/Globulin Ratio 06/24/20 06/24/20 06/24/20 07:30 08:40 10:55 WBC RBC Hgb Hct MCV MCH MCHC RDW Std Deviation RDW Coeff of Mika Plt Count MPV Immature Gran % (Auto) Neut % (Auto) Lymph % (Auto) [place] % (Auto) Eos % (Auto) Baso % (Auto) Absolute Neuts (auto) Absolute Lymphs (auto) Nucleated RBC % Differential Comment PT INR APTT Sodium Cancelled 126 L 127 L Potassium Cancelled 8.1 H* 8.2 H* Chloride Cancelled 91 L 91 L Carbon Dioxide Cancelled 14.0 L 12.0 L Anion Gap Cancelled 21 H 24 H BUN Cancelled 103 H* 107 H* Creatinine Cancelled 9.34 H* 9.45 H* Estim Creat Clear Calc Cancelled 5.70 5.63 Est GFR (MDRD) Af Amer Cancelled 5 L 5 L Est GFR (MDRD) Non-Af Cancelled 5 L 4 L BUN/Creatinine Ratio Cancelled 11.0 11.3 Glucose Cancelled 53 L 51 L Lactic Acid Calcium Cancelled 8.6 8.9 Total Bilirubin AST ALT Alkaline Phosphatase Total Protein Albumin Globulin Albumin/Globulin Ratio 06/25/20 06/25/20 05:36 05:36 WBC 14.7 H RBC 2.84 L Hgb 8.3 L Hct 26.2 L MCV 92.3 D MCH 29.2 MCHC 31.7 L D RDW Std Deviation 53.8 H RDW Coeff of Mika 17.0 H Plt Count 379 MPV 10.3 Immature Gran % (Auto) 1.000 H Neut % (Auto) 86.1 H Lymph % (Auto) 9.7 L [place] % (Auto) 2.6 Eos % (Auto) 0.5 Baso % (Auto) 0.1 Absolute Neuts (auto) 12.7 H Absolute Lymphs (auto) 1.42 Nucleated RBC % 5.2 H Differential Comment PT INR APTT Sodium Pending Potassium Pending Chloride Pending Carbon Dioxide Pending Anion Gap Pending BUN Pending Creatinine Pending Estim Creat Clear Calc Est GFR (MDRD) Af Amer Pending Est GFR (MDRD) Non-Af Pending BUN/Creatinine Ratio Pending Glucose Pending Lactic Acid Calcium Pending Total Bilirubin AST ALT Alkaline Phosphatase Total Protein Albumin Globulin Albumin/Globulin Ratio Clinical Impression(s) from Imaging Studies Chest X-Ray 06/23/20 10:12 IMPRESSION: Increased interstitial markings in both lungs with areas of confluence. Blunting of both cause phrenic angles. Findings may represent a combination of infectious process such as an interstitial pneumonia superimposed on CHF. Electronically Signed: Pop Pimentel, at 11:12 EST , Service support , Chest X-Ray 06/24/20 05:55 IMPRESSION: Mild improvement in the CHF. Electronically Signed: Pop Pimentel, at 9:56 EST , Service support , Chest X-Ray 06/24/20 08:30 IMPRESSION: The tip of the dialysis catheter is at the junction of the superior vena cava and right atrium. Persistent mild degree of CHF with blunting of both content angles and bibasilar atelectasis more prominent on the left side. Electronically Signed: Pop Pimentel, at 9:09 EST , Service support , Current Medications Acetaminophen (Acetaminophen 325 Mg Tablet) 650 mg PO Q6H PRN PRN PRN Reason: Pain Score 1-10 Last Admin: 06/24/20 03:34 Dose: 650 mg Documented by: Alprazolam (Alprazolam 0.5 Mg Tablet) 1 mg PO TID PRN PRN PRN Reason: ANXIETY Last Admin: 06/24/20 20:41 Dose: 1 mg Documented by: Aspirin (Aspirin 81 Mg Tab.Chew) 81 mg PO DAILY@0800 [facility] Last Admin: 06/24/20 08:54 Dose: 81 mg Documented by: Calcium Carbonate (Calcium Carbonate 500 Mg Tablet) 500 mg PO Q4H PRN PRN PRN Reason: DYSPEPSIA Last Admin: 06/24/20 20:41 Dose: 500 mg Documented by: Dexamethasone (Dexamethasone 4 Mg Tablet) 6 mg PO DAILY@0800 [facility] Stop: 07/03/20 08:01 Last Admin: 06/24/20 17:16 Dose: Not Given Documented by: Heparin Sodium (Porcine) (Heparin Injection (Vial) 5,000 Unit/Ml Vial) 5,000 unit SC Q12 [facility] Last Admin: 06/24/20 19:48 Dose: 5,000 unit Documented by: Heparin Sodium (Porcine) (Heparin 10,000 Units/10 Ml Vial) 2,600 units IV DAILY PRN PRN Reason: Dialysis Dopamine HCl/Dextrose () 800 mg in 250 mls @ 16.125 mls/hr CONT INF .[id number] [facility]; Protocol Last Admin: 06/25/20 00:30 Dose: Not Given Documented by: Ibuprofen (Ibuprofen 400 Mg Tablet) 400 mg PO Q6H PRN PRN PRN Reason: Pain Score 1-10 Last Admin: 06/24/20 23:13 Dose: 400 mg Documented by: Sevelamer Carbonate (Sevelamer Carbonate 800 Mg Tablet) 1,600 mg PO TIDCM [facility] Last Admin: 06/24/20 16:31 Dose: 1,600 mg Documented by: Sodium Chloride (0.9% Saline Lock 10 Ml Syringe) 10 - 40 ml IV UD PRN PRN Reason: SALINE FLUSH Last Admin: 06/23/20 20:42 Dose: 40 ml Documented by: Medical Necessity - Tobacco Use Smoking Status: Never smoker Tobacco Use: Non-smoker Assessment/Plan All Active Problems (Last Reviewed 06/16/20 @ 07:[address] Marc Snow MD) Generalized weakness (Acute) ESRD (end stage renal disease) on dialysis (Acute) Hyperkalemia (Acute) Symptomatic bradycardia (Acute) Chest pain (Acute) Septic shock (Acute) Pneumonia due to COVID-19 virus (Acute) Healthcare-associated pneumonia (Acute) COVID-19 (Acute) Hypoxia (Acute) Shortness of breath (Acute) Hyponatremia (Acute) RECOMMENDATIONS: 1. Nephrology following to assist with hemodialysis needs. 2. I will defer management of HD access to nephrology and hospitalist. 3. Encourage incentive spirometer use and mobilize patient as tolerated. 4. The patient is medically stable for transfer out of the intensive care unit. 5. Given the patient's lack of further ICU or pulmonary needs, will sign off. Please call with any additional questions. IMPRESSIONS: 1. Symptomatic bradycardia and hypotension Resolved. Likely secondary to beta-madhavi utilization in the setting of end-stage renal disease. The patient initially required dopamine support, her heart rate normalized with dialysis. She has been weaned from dopamine and continues to have a normal heart rate and stable hemodynamics. Recommend complete discontinuation of beta-madhavi at discharge. 2. Recent diagnosis of COVID-19 pneumonia No additional work-up or intervention is required at this time. The patient is maintaining appropriate oxygen saturations on room air. 3. End-stage renal disease on hemodialysis Nephrology is following to assist with hemodialysis needs. Will defer management of HD access to nephrology and hospitalist. This note was generated with [employer] software. It may contain incorrect words, spelling, and punctuation that were not noted in checking the note before signing. Inpatient E&M: 53347 Subs Hosp L2
[2020-06-25 06:04] LABS: Anion Gap 13 (5-15); BUN 47 mg/dL (7-18); BUN/Creat Ratio 9.3 RATIO (10-20); Calcium,Total 7.7 mg/dL (8.5-10.1); Chloride 92 mmol/L (98-107); Creatinine, Serum 5.07 mg/dL (0.55-1.02); Differential Comment SCANNED; EST Glomerular Filtration Rate 9 mL/min (>60); Est Glom Filt Rate - Afr Amer 11 mL/min (>60); Estimated Creatinine Clearance 10.49 ml/min; Glucose 87 mg/dL (74-106); Potassium 4.9 mmol/L (3.5-5.1); Sodium Level 127 mmol/L (136-145)
--- NOTE | 2020-06-25 08:03 | PCM.PROGNOTE ---
Patient Problems: Active and Suspected Problems (Last Reviewed 06/16/20 @ 07:[address] Marc Snow MD) Generalized weakness (Acute) ESRD (end stage renal disease) on dialysis (Acute) Hyperkalemia (Acute) Symptomatic bradycardia (Acute) Pneumonia due to COVID-19 virus (Acute) Healthcare-associated pneumonia (Acute) COVID-19 (Acute) Hypoxia (Acute) Shortness of breath (Acute) Subjective: Patient was seen and examined today, she denies any shortness of breath, she is now on room air, she states she wants to go home I told her that she cannot be discharged with a temporary dialysis catheter, it would be up to nephrology to arrange another method for dialysis before she can be discharged. Patient is no longer bradycardic and blood pressure is controlled. Objective: General: Alert, Oriented x3, Cooperative, No apparent distress, Well developed HEENT: Atraumatic, PERRLA, EOMI, Normocephalic Oral: Moist Mucosa Neck: Supple, No JVD, Negative Carotid Bruits, Trachea Midline, Thyroid Normal Size and Texture Lungs: Clear to auscultation, No rhonchi, No wheeze, Diminished Cardiovascular: Regular rate, Regular Rhythm, Normal S1, Normal S2, No murmurs, PMI Normal, No rub noted, No Gallop Abdomen: Bowel Sounds Present, Soft, Non Tender, Non-Distended Extremities: No clubbing, No cyanosis, Capillary Refill Less than 3 Seconds Skin: No rashes, No breakdown Musculoskeletal: No Tenderness to Palpation of Joints or Extremities Neurological: Cranial nerves II-XII grossly intact, Neuro grossly intact, Sensory exam intact to light touch and pain, Coordination normal Psych/Mental Status: Normal Affect, Appropriate, Alert and oriented to time, place, person, mood and affect - Physical Exam Vitals/I&O's: Vital Signs Temp Pulse Resp BP Pulse Ox 98 F 92 17 121/51 H 97 06/25/20 03:40 06/25/20 03:40 06/25/20 03:40 06/25/20 03:40 06/25/20 03:40 Oxygen Flow Rate (L/min) 2 Oxygen Delivery Method Room Air Weight: 81.902 kg Body Mass Index (BMI) 30.6 Finger Stick Blood Glucose 143 Intake and Output for Last 24 Hours 11/11/0706/24/20 06/25/20 23:59 23:59 23:59 Intake Total 474.53 / 474.53 641.29 / 641.29 60 60 Output Total 4000 / 4000 Balance 474.53 / 474.53 -3358.71 / -3358.71 60 Microbiology Past 72 Hours 06/23/20 10:13 Blood Culture (Wb) - Anticubital Right Blood Culture - Preliminary No growth in 48 hours. 06/23/20 10:10 Blood Culture (Wb) - Right Hand Blood Culture - Preliminary No growth in 48 hours. Laboratory Results 06/24/20 08:40: Sodium 126 L, Potassium 8.1 H*, Chloride 91 L, Carbon Dioxide 14.0 L, Anion Gap 21 H, BUN 103 H*, Creatinine 9.34 H*, Estim Creat Clear Calc 5.70, Est GFR (MDRD) Af Amer 5 L, Est GFR (MDRD) Non-Af 5 L, BUN/Creatinine Ratio 11.0, Glucose 53 L, Calcium 8.6 06/24/20 10:55: Sodium 127 L, Potassium 8.2 H*, Chloride 91 L, Carbon Dioxide 12.0 L, Anion Gap 24 H, BUN 107 H*, Creatinine 9.45 H*, Estim Creat Clear Calc 5.63, Est GFR (MDRD) Af Amer 5 L, Est GFR (MDRD) Non-Af 4 L, BUN/Creatinine Ratio 11.3, Glucose 51 L, Calcium 8.9 06/25/20 05:36: WBC 14.7 H, RBC 2.84 L, Hgb 8.3 L, Hct 26.2 L, MCV 92.3 D, MCH 29.2, MCHC 31.7 L D, RDW Std Deviation 53.8 H, RDW Coeff of Mika 17.0 H, Plt Count 379, MPV 10.3, Immature Gran % (Auto) 1.000 H, Neut % (Auto) 86.1 H, Lymph % (Auto) 9.7 L, [place] % (Auto) 2.6, Eos % (Auto) 0.5, Baso % (Auto) 0.1, Absolute Neuts (auto) 12.7 H, Absolute Lymphs (auto) 1.42, Nucleated RBC % 5.2 H, Differential Comment SCANNED, Diff Path Review December06/25/20 05:36: Sodium 127 L, Potassium 4.9, Chloride 92 L, Carbon Dioxide 22.0, Anion Gap 13, BUN 47 H, Creatinine 5.07 H, Estim Creat Clear Calc 10.49, Est GFR (MDRD) Af Amer 11 L, Est GFR (MDRD) Non-Af 9 L, BUN/Creatinine Ratio 9.3 L, Glucose 87, Calcium 7.7 L Current Medications Acetaminophen (Acetaminophen 325 Mg Tablet) 650 mg PO Q6H PRN PRN PRN Reason: Pain Score 1-10 Last Admin: 06/24/20 03:34 Dose: 650 mg Documented by: Alprazolam (Alprazolam 0.5 Mg Tablet) 1 mg PO TID PRN PRN PRN Reason: ANXIETY Last Admin: 06/24/20 20:41 Dose: 1 mg Documented by: Aspirin (Aspirin 81 Mg Tab.Chew) 81 mg PO DAILY@0800 [facility] Last Admin: 06/24/20 08:54 Dose: 81 mg Documented by: Calcium Carbonate (Calcium Carbonate 500 Mg Tablet) 500 mg PO Q4H PRN PRN PRN Reason: DYSPEPSIA Last Admin: 06/24/20 20:41 Dose: 500 mg Documented by: Dexamethasone (Dexamethasone 4 Mg Tablet) 6 mg PO DAILY@0800 [facility] Stop: 07/03/20 08:01 Last Admin: 06/24/20 17:16 Dose: Not Given Documented by: Heparin Sodium (Porcine) (Heparin Injection (Vial) 5,000 Unit/Ml Vial) 5,000 unit SC Q12 [facility] Last Admin: 06/24/20 19:48 Dose: 5,000 unit Documented by: Heparin Sodium (Porcine) (Heparin 10,000 Units/10 Ml Vial) 2,600 units IV DAILY PRN PRN Reason: Dialysis Ibuprofen (Ibuprofen 400 Mg Tablet) 400 mg PO Q6H PRN PRN PRN Reason: Pain Score 1-10 Last Admin: 06/24/20 23:13 Dose: 400 mg Documented by: Sevelamer Carbonate (Sevelamer Carbonate 800 Mg Tablet) 1,600 mg PO TIDCM [facility] Last Admin: 06/24/20 16:31 Dose: 1,600 mg Documented by: Sodium Chloride (0.9% Saline Lock 10 Ml Syringe) 10 - 40 ml IV UD PRN PRN Reason: SALINE FLUSH Last Admin: 06/23/20 20:42 Dose: 40 ml Documented by: Medical Necessity - Tobacco Use Smoking Status: Never smoker Tobacco Use: Non-smoker Assessment/Plan All Active Problems (Last Reviewed 06/16/20 @ 07:[address] Marc Snow MD) Generalized weakness (Acute) ESRD (end stage renal disease) on dialysis (Acute) Hyperkalemia (Acute) Symptomatic bradycardia (Acute) Chest pain (Acute) Septic shock (Acute) Pneumonia due to COVID-19 virus (Acute) Healthcare-associated pneumonia (Acute) COVID-19 (Acute) Hypoxia (Acute) Shortness of breath (Acute) Hyponatremia (Acute) #1 acute fluid overload secondary to end-stage renal disease and acute on chronic diastolic congestive heart failure-patient has been doing well since dialysis today, chest x-ray will be repeated tomorrow #2 bilateral infiltrates suggestive of pneumonia-? Healthcare acquired-patient white blood cell count is improved today, she remains off antibiotics and is afebrile. #3 end-stage renal disease with fluid overload-nephrology is following #4 amyloidosis #5 bradycardia-probably secondary to beta-madhavi usage-this has resolved off her metoprolol #6 hypoxia-secondary to fluid overload and possible healthcare acquired pneumonia-hypoxia is resolved at this time #7 hypotension-possibly secondary to beta-madhavi usage, this is corrected since the patient has undergone dialysis. Inpatient E&M: 15339 Subs Hosp L2
[2020-06-25] MEDS: Ibuprofen 400 MG Tablet PO ×2 (08:51→17:01)
[2020-06-25] MEDS: dexAMETHasone 4 MG Tablet 6 MG PO (08:52)
[2020-06-25] MEDS: 0.9% Saline Lock 10 ML Syringe IV (08:52)
[2020-06-25] MEDS: Aspirin 81 MG TAB.CHEW PO (08:52)
[2020-06-25] MEDS: SEVELAMER CARBONATE 800 MG TABLET 1600 MG PO ×3 (08:52→17:01)
--- NOTE | 2020-06-25 10:22 | PCM.CONS.GEN ---
Reason for Consult Date of Consultation: 06/30/20 History of Present Illness: The patient is a 64 year old F Initially admitted Monday night did have some hypotension which has corrected. Patient is also chronic dialysis patient and her Left distal forearm fistula had clotted normally has dialysis Monday and Monday. Patient did get dialysis via temporary right IJ catheter while in the hospital. Patient was also Positive for Covid on admit.Consulted for tunneled dialysis catheter.Patient states she did not miss any dialysis as her fistula was functional for her Saturdays dialysis. Past Medical History Past Medical History (Chronic Problems): Chronic Problems (Last Reviewed 06/16/20 @ 07:[address] Marc Snow MD) NSTEMI (non-ST elevated myocardial infarction) (Chronic) Dialysis patient (Chronic) Elevated troponin (Chronic) Congestive heart failure (Chronic) Rheumatoid arthritis (Chronic) Amyloidosis (Chronic) CKD (chronic kidney disease) stage 4, GFR 15-29 ml/min (Chronic) Renal anasarca (Chronic) Medical History: Medical History (Last Reviewed 06/16/20 @ 07:[address] Marc Snow MD) NSTEMI (non-ST elevated myocardial infarction) (Chronic) I21.4 Dialysis patient (Chronic) Z99.2 Acute kidney injury superimposed on CKD (Inactive) N17.9, N18.9 Elevated troponin (Chronic) R79.89 Congestive heart failure (Chronic) I50.9 Rheumatoid arthritis (Chronic) M06.9 Amyloidosis (Chronic) E85.9 CKD (chronic kidney disease) stage 4, GFR 15-29 ml/min (Chronic) N18.4 Renal anasarca (Chronic) N04.9 Hyponatremia (Acute) E87.1 Allergies No Known Allergies Allergy (Verified 06/23/20 10:05) Home Medications: Ambulatory Orders Medication Instructions Recorded Prednisone 5 mg PO DAILY 01/16/18 Aspirin [Aspirin, Baby] 81 mg PO DAILY@0800 10/29/19 Sevelamer Carbonate 240 mg PO TIDCM 10/29/19 Acetaminophen [Tylenol Tablet] 650 mg PO Q6H PRN PRN #30 tab 10/31/19 Ibuprofen [Motrin] 400 mg PO Q6H PRN PRN #30 tab 10/31/19 Alprazolam [Xanax] 1 mg PO TID PRN PRN 06/23/20 Fluticasone 0.05% [Flonase Nasal 2 spray NASAL DAILY 06/23/20 [place]] Metoprolol(XL)Succ [Toprol Xl 25 mg PO BID 06/23/20 (Beta Azra)] Prednisone 2.5 mg PO 1200 06/23/20 Surgical History: - - Left forearm AV fistula Psychiatric History: Anxiety, Depression [employer] History: No pertinent [employer] history Lives: Spouse/ Significant Other Smoking Status: Never smoker Tobacco Use: Non-smoker Alcohol: None Drugs: None - *Family History Maternal History Items: - - Denies known maternal medical history including cardiac history. Paternal History Items: Diabetes, - Review of Systems Constitutional: Denies: Anorexia Eyes: Denies: Blurred vision HEENT: Denies: Difficulty Swallowing Cardiovascular: Denies: Chest Pain Respiratory: Denies: Hemoptysis Gastrointestinal: Denies: Abdominal Pain Genitourinary: Denies: Dysuria Neurological: Denies: Balance problems Psychiatric: Denies: Depression Hematologic/ Lymphatic: Denies: Easy Bleeding Patient Problems: Active and Suspected Problems (Last Reviewed 06/16/20 @ 07:[address] Marc Snow MD) Generalized weakness (Acute) ESRD (end stage renal disease) on dialysis (Acute) Hyperkalemia (Acute) Symptomatic bradycardia (Acute) Pneumonia due to COVID-19 virus (Acute) Healthcare-associated pneumonia (Acute) COVID-19 (Acute) Hypoxia (Acute) Shortness of breath (Acute) - Physical Exam Vitals/I&O's: Vital Signs Temp Pulse Resp BP Pulse Ox 97.7 F L 101 H 20 H 131/87 H 92 06/25/20 09:03 06/25/20 09:03 06/25/20 09:03 06/25/20 09:03 06/25/20 08:15 Oxygen Flow Rate (L/min) 2 Oxygen Delivery Method Room Air Weight: 180 lb 9 oz Body Mass Index (BMI) 30.6 Finger Stick Blood Glucose 143 Intake and Output for Last 24 Hours 06/23/20 06/24/20 06/25/20 23:59 23:59 23:59 Intake Total 474.53 / 474.53 641.29 / 641.29 60 / 60 Output Total 4000 / 4000 Balance 474.53 / 474.53 -3358.71 / -3358.71 60 / 60 General: Alert, Oriented x3, Cooperative, No apparent distress, - - Patient is currently receiving dialysis via her right temporary IJ dialysis catheter. Lungs: Normal air movement Cardiovascular: Regular rate Abdomen: Soft, Non Tender, Non-Distended Extremities: - - Left distal forearm fistula, no thrill present Neurological: Cranial nerves II-XII grossly intact Psych/Mental Status: Normal Affect Microbiology Past 72 Hours 06/23/20 10:13 Blood Culture (Wb) - Anticubital Right Blood Culture - Preliminary No growth in 48 hours. 06/23/20 10:10 Blood Culture (Wb) - Right Hand Blood Culture - Preliminary No growth in 48 hours. Laboratory Results 06/24/20 10:55: Sodium 127 L, Potassium 8.2 H*, Chloride 91 L, Carbon Dioxide 12.0 L, Anion Gap 24 H, BUN 107 H*, Creatinine 9.45 H*, Estim Creat Clear Calc 5.63, Est GFR (MDRD) Af Amer 5 L, Est GFR (MDRD) Non-Af 4 L, BUN/Creatinine Ratio 11.3, Glucose 51 L, Calcium 8.9 06/25/20 05:36: WBC 14.7 H, RBC 2.84 L, Hgb 8.3 L, Hct 26.2 L, MCV 92.3 D, MCH 29.2, MCHC 31.7 L D, RDW Std Deviation 53.8 H, RDW Coeff of Mika 17.0 H, Plt Count 379, MPV 10.3, Immature Gran % (Auto) 1.000 H, Neut % (Auto) 86.1 H, Lymph % (Auto) 9.7 L, [place] % (Auto) 2.6, Eos % (Auto) 0.5, Baso % (Auto) 0.1, Absolute Neuts (auto) 12.7 H, Absolute Lymphs (auto) 1.42, Nucleated RBC % 5.2 H, Differential Comment SCANNED, Diff Path Review December06/25/20 05:36: Sodium 127 L, Potassium 4.9, Chloride 92 L, Carbon Dioxide 22.0, Anion Gap 13, BUN 47 H, Creatinine 5.07 H, Estim Creat Clear Calc 10.49, Est GFR (MDRD) Af Amer 11 L, Est GFR (MDRD) Non-Af 9 L, BUN/Creatinine Ratio 9.3 L, Glucose 87, Calcium 7.7 L Current Medications Acetaminophen (Acetaminophen 325 Mg Tablet) 650 mg PO Q6H PRN PRN PRN Reason: Pain Score 1-10 Last Admin: 06/24/20 03:34 Dose: 650 mg Documented by: Alprazolam (Alprazolam 0.5 Mg Tablet) 1 mg PO TID PRN PRN PRN Reason: ANXIETY Last Admin: 06/24/20 20:41 Dose: 1 mg Documented by: Aspirin (Aspirin 81 Mg Tab.Chew) 81 mg PO DAILY@0800 [facility] Last Admin: 06/25/20 08:52 Dose: 81 mg Documented by: Calcium Carbonate (Calcium Carbonate 500 Mg Tablet) 500 mg PO Q4H PRN PRN PRN Reason: DYSPEPSIA Last Admin: 06/24/20 20:41 Dose: 500 mg Documented by: Dexamethasone (Dexamethasone 4 Mg Tablet) 6 mg PO DAILY@0800 [facility] Stop: 07/03/20 08:01 Last Admin: 06/25/20 08:52 Dose: 6 mg Documented by: Heparin Sodium (Porcine) (Heparin Injection (Vial) 5,000 Unit/Ml Vial) 5,000 unit SC Q12 [facility] Last Admin: 06/24/20 19:48 Dose: 5,000 unit Documented by: Heparin Sodium (Porcine) (Heparin 10,000 Units/10 Ml Vial) 2,600 units IV DAILY PRN PRN Reason: Dialysis Ibuprofen (Ibuprofen 400 Mg Tablet) 400 mg PO Q6H PRN PRN PRN Reason: Pain Score 1-10 Last Admin: 06/25/20 08:51 Dose: 400 mg Documented by: Sevelamer Carbonate (Sevelamer Carbonate 800 Mg Tablet) 1,600 mg PO TIDCM [facility] Last Admin: 06/25/20 08:52 Dose: 1,600 mg Documented by: Sodium Chloride (0.9% Saline Lock 10 Ml Syringe) 10 - 40 ml IV UD PRN PRN Reason: SALINE FLUSH Last Admin: 06/25/20 08:52 Dose: 10 ml Documented by: Assessment/Plan All Active Problems (Last Reviewed 06/16/20 @ 07:[address] Marc Snow MD) Generalized weakness (Acute) ESRD (end stage renal disease) on dialysis (Acute) Hyperkalemia (Acute) Symptomatic bradycardia (Acute) Chest pain (Acute) Septic shock (Acute) Pneumonia due to COVID-19 virus (Acute) Healthcare-associated pneumonia (Acute) COVID-19 (Acute) Hypoxia (Acute) Shortness of breath (Acute) Hyponatremia (Acute) 64-year-old female with end-stage renal disease on dialysis, Covid positive, thrombosed fistula 1. Patient is currently getting dialysis via temporary right IJ dialysis line. We will plan to place tunneled dialysis line tomorrow in the OR. We will have the temporary right dialysis line removed after dialysis today. Discussed the procedure with the patient including risk but not limited to bleeding, infection, malfunction of the catheter, etc. patient no further questions this time. N.p.o. after midnight okay for water only from midnight to 7 AM. We will schedule for late morning about 1130 tomorrow in the OR. Mayra Goodman M.D. Pager: [phone] [facility] [address] [place] [address], [facility], [address] [place] [address] Office: [phone] Addendum: Patient was transferred to [facility] for possible intervention for her thrombosed left forearm fistula and plan to have tunneled dialysis placed there as well. Inpatient E&M: 39575 Init Hosp L2
--- NOTE | 2020-06-25 11:41 | PN.ID_ITS ---
Patient Problems: Active and Suspected Problems (Last Reviewed 06/16/20 @ 07:[address] Marc Snow MD) Generalized weakness (Acute) ESRD (end stage renal disease) on dialysis (Acute) Hyperkalemia (Acute) Symptomatic bradycardia (Acute) Pneumonia due to COVID-19 virus (Acute) Healthcare-associated pneumonia (Acute) COVID-19 (Acute) Hypoxia (Acute) Shortness of breath (Acute) Subjective: Feeling better, no fever, on RA - Physical Exam Vitals/I&O's: Vital Signs Temp Pulse Resp BP Pulse Ox 97.7 F L 101 H 20 H 131/87 H 92 06/25/20 09:03 06/25/20 09:03 06/25/20 09:03 06/25/20 09:03 06/25/20 08:15 Oxygen Flow Rate (L/min) 2 Oxygen Delivery Method Room Air Weight: 81.902 kg Body Mass Index (BMI) 30.6 Finger Stick Blood Glucose 143 Intake and Output for Last 24 Hours 06/23/20 06/24/20 06/25/20 23:59 23:59 23:59 Intake Total 474.53 / 474.53 641.29 / 641.29 60 / 60 Output Total 4000 / 4000 Balance 474.53 / 474.53 -3358.71 / -3358.71 60 / 60 General: Alert, Cooperative, No apparent distress Lungs: Clear to auscultation, Diminished Cardiovascular: Regular rate, Regular Rhythm Abdomen: Soft, Non Tender, Non-Distended Skin: No rashes Microbiology Past 72 Hours 06/23/20 10:13 Blood Culture (Wb) - Anticubital Right Blood Culture - Pr eliminary No growth in 48 hours. 06/23/20 10:10 Blood Culture (Wb) - Right Hand Blood Culture - Preliminary No growth in 48 hours. Laboratory Results 06/25/20 05:36: WBC 14.7 H, RBC 2.84 L, Hgb 8.3 L, Hct 26.2 L, MCV 92.3 D, MCH 29.2, MCHC 31.7 L D, RDW Std Deviation 53.8 H, RDW Coeff of Mika 17.0 H, Plt Count 379, MPV 10.3, Immature Gran % (Auto) 1.000 H, Neut % (Auto) 86.1 H, Lymph % (Auto) 9.7 L, [place] % (Auto) 2.6, Eos % (Auto) 0.5, Baso % (Auto) 0.1, Absolute Neuts (auto) 12.7 H, Absolute Lymphs (auto) 1.42, Nucleated RBC % 5.2 H, Differential Comment SCANNED, Diff Path Review May foll 06/25/20 05:36: Sodium 127 L, Potassium 4.9, Chloride 92 L, Carbon Dioxide 22.0, Anion Gap 13, BUN 47 H, Creatinine 5.07 H, Estim Creat Clear Calc 10.49, Est GFR (MDRD) Af Amer 11 L, Est GFR (MDRD) Non-Af 9 L, BUN/Creatinine Ratio 9.3 L, Gl ucose 87, Calcium 7.7 L Current Medications Acetaminophen (Acetaminophen 325 Mg Tablet) 650 mg PO Q6H PRN PRN PRN Reason: Pain Score 1-10 Last Admin: 06/24/20 03:34 Dose: 650 mg Documented by: Alprazolam (Alprazolam 0.5 Mg Tablet) 1 mg PO TID PRN PRN PRN Reason: ANXIETY Last Admin: 06/24/20 20:41 Dose: 1 mg Documented by: Aspirin (Aspirin 81 Mg Tab.Chew) 81 mg PO DAILY@0800 [facility] Last Admin: 06/25/20 08:52 Dose: 81 mg Documented by: Calcium Carbonate (Calcium Carbonate 500 Mg Tablet) 500 mg PO Q4H PRN PRN PRN Reason: DYSPEPSIA Last Admin: 06/24/20 20:41 Dose: 500 mg Documented by: Dexamethasone (Dexamethasone 4 Mg Tablet) 6 mg PO DAILY@0800 [facility] Stop: 07/03/20 08:01 Last Admin: 06/25/20 08:52 Dose: 6 mg Documented by: Heparin Sodium (Porcine) (Heparin Injection (Vial) 5,000 Unit/Ml Vial) 5,000 unit SC Q12 [facility] Last Admin: 06/24/20 19:48 Dose: 5,000 unit Documented by: Heparin Sodium (Porcine) (Heparin 10,000 Units/10 Ml Vial) 2,600 units IV DAILY PRN PRN Reason: Dialysis Ibuprofen (Ibuprofen 400 Mg Tablet) 400 mg PO Q6H PRN PRN PRN Reason: Pain Score 1-10 Last Admin: 06/25/20 08:51 Dose: 400 mg Documented by: Sevelamer Carbonate (Sevelamer Carbonate 800 Mg Tablet) 1,600 mg PO TIDCM [facility] Last Admin: 06/25/20 08:52 Dose: 1,600 mg Documented by: Sodium Chloride (0.9% Saline Lock 10 Ml Syringe) 10 - 40 ml IV UD PRN PRN Reason: SALINE FLUSH Last Admin: 06/25/20 08:52 Dose: 10 ml Documented by: Medical Necessity - Tobacco Use Smoking Status: Never smoker Tobacco Use: Non-smoker Route of nutrition/ use of supplements: [] Nutritional Intake: [] IV Site: [] Rivas Catheter: [] - Assessment/Plan Antibiotics: [] Assessment/Plan: [] Active and Suspected Problems (Last Reviewed 06/16/20 @ 07:[address] Marc Snow MD) Generalized weakness (Acute) Symptomatic bradycardia (Acute) Pneumonia due to COVID-19 virus (Acute) Healthcare-associated pneumonia (Acute) COVID-19 (Acute) Hypoxia (Acute) Shortness of breath (Acute) covid - sx started around 06/11. Feeling better, on dex, on RA, ok for discha rge to complete 10 days total of dex. Will follow
--- NOTE | 2020-06-25 12:40 | DIALYSIS ---
Pt completed 4 hours hemodialysis with 4 liters fluid removed. Post treatment after blood returned, CVC sutures removed and line DC'd. Light manual pressure held x5 minutes. Occlusive dressing applied. Pt tolerated treatment and procedure without difficulty.
[2020-06-25 13:07] LABS: Pathologist Review Reviewed
[2020-06-25] MEDS: Heparin Injection (Vial) 5,000 UNIT/ML VIAL 5000 UNIT SC ×2 (13:37→20:24)
[2020-06-25] MEDS: Calcium Carbonate 500 MG Tablet PO ×2 (14:04→20:25)
--- NOTE | 2020-06-25 14:21 | CHAPLAIN ---
Type of Pastoral Visit ___ Initial Visit ___ Follow-up Visit ___ On-call Visit ___ General Patient Visit ___ Spiritual Assessment ___ Family Conference ___ Bereavement ___ Rapid Response ___ Code Blue _x__ Other (describe below) Pastoral Care Referral From _x__ Patient ___ Family ___ Nurse ___ Physician ___ Sales And Marketing Manager ___ Cutter V [employer]ove ___ Other (describe below) Sacrament/Intervention _x__ Active listening ___ Anointing ___ Hindu ___ Bereavement ___ Communion ___ Rose exploration ___ ___ Life review _x__ Prayer ___ Reconciliation ___ Sacrament of Sick _x__ Supportive presence ___ Wedding ___ Other (describe below) Pastoral Comments phone call made into room and patient answered; listened, offered support, gave prayer as welcomed by patient;
--- NOTE | 2020-06-25 14:43 | CASEMGMT ---
[facility] CM Readmission Note Previous admission: 06/16/20 Diagnosis: ESRD with hemodialysis @ [facility], bradycardia DC Dispo: home Current admission Diagnosis: Bradycardia, COVID 19 (test on 06/15/2020) Pt presented with shortness of breath and weakness. K 5.3, Creatinine 8.4, pulse ox 88% on RA. Cardiology consult for bradycardia, ID consult. Intro role of CM to patient via phone. The patient states she is independent, does not use oxygen at home or ambulatory DME. Patient is aware she may need to transfer to tertiary care to manage her fistula. PCP: Dr. Jabier Arboleda Pharmacy: [facility] Dialysis: [facility]. Patient has a driver education road instructor to take her to dialysis. No concerns with this. Living arrangements: a few steps in then one floor. Patient states she is independent with ADL and has not required assistance at home. DME: none DC PLAN: transfer to tertiary care. Laury RUVALCABA RN [facility]
--- NOTE | 2020-06-25 14:59 | PCM.DC.SUM ---
Discharge Date and Diagnosis - Problem List Patient Problems: Active and Suspected Problems (Last Reviewed 06/16/20 @ 07:[address] Marc Snow MD) Generalized weakness (Acute) ESRD (end stage renal disease) on dialysis (Acute) Hyperkalemia (Acute) Symptomatic bradycardia (Acute) Pneumonia due to COVID-19 virus (Acute) Healthcare-associated pneumonia (Acute) COVID-19 (Acute) Hypoxia (Acute) Shortness of breath (Acute) Date of Admission: 06/23/20 - Primary Discharge Diagnosis Acute Problems: Active Problems (Last Reviewed 06/16/20 @ 07:[address] Marc Snow MD) Generalized weakness (Acute) ESRD (end stage renal disease) on dialysis (Acute) Hyperkalemia (Acute) Symptomatic bradycardia (Acute) Pneumonia due to COVID-19 virus (Acute) Healthcare-associated pneumonia (Acute) COVID-19 (Acute) Hypoxia (Acute) Shortness of breath (Acute) - Secondary Discharge Diagnosis Chronic Problems: Chronic Problems (Last Reviewed 06/16/20 @ 07:[address] Marc Snow MD) NSTEMI (non-ST elevated myocardial infarction) (Chronic) Dialysis patient (Chronic) Elevated troponin (Chronic) Congestive heart failure (Chronic) Rheumatoid arthritis (Chronic) Amyloidosis (Chronic) CKD (chronic kidney disease) stage 4, GFR 15-29 ml/min (Chronic) Renal anasarca (Chronic) Hospital Course and Treatment Operations: None Summary of Care Provided: The patient is a 64 year old F [] Patient Problems: Active and Suspected Problems (Last Reviewed 06/16/20 @ 07:[address] Marc Snow MD) Generalized weakness (Acute) ESRD (end stage renal disease) on dialysis (Acute) Hyperkalemia (Acute) Symptomatic bradycardia (Acute) Pneumonia due to COVID-19 virus (Acute) Healthcare-associated pneumonia (Acute) COVID-19 (Acute) Hypoxia (Acute) Shortness of breath (Acute) - Physical Exam Vitals/I&O's: Vital Signs Temp Pulse Resp BP Pulse Ox 97.9 F 93 15 141/62 H 95 06/25/20 12:39 06/25/20 12:39 06/25/20 12:39 06/25/20 12:39 06/25/20 12:39 Oxygen Flow Rate (L/min) 2 Oxygen Delivery Method Room Air Weight: 81.902 kg Body Mass Index (BMI) 30.6 Finger Stick Blood Glucose 143 Intake and Output for Last 24 Hours 06/23/20 06/24/20 06/25/20 23:59 23:59 23:59 Intake Total 474.53 / 474.53 641.29 / 641.29 260 / 260 Output Total 4000 / 4000 4000 / 4000 Balance 474.53 / 474.53 -3358.71 / -3358.71 -3740 / -3740 Microbiology Past 72 Hours 06/23/20 10:13 Blood Culture (Wb) - Anticubital Right Blood Culture - Preliminary No growth in 48 hours. 06/23/20 10:10 Blood Culture (Wb) - Right Hand Blood Culture - Preliminary No growth in 48 hours. Laboratory Results 06/25/20 05:36: WBC 14.7 H, RBC 2.84 L, Hgb 8.3 L, Hct 26.2 L, MCV 92.3 D, MCH 29.2, MCHC 31.7 L D, RDW Std Deviation 53.8 H, RDW Coeff of Mika 17.0 H, Plt Count 379, MPV 10.3, Immature Gran % (Auto) 1.000 H, Neut % (Auto) 86.1 H, Lymph % (Auto) 9.7 L, [place] % (Auto) 2.6, Eos % (Auto) 0.5, Baso % (Auto) 0.1, Absolute Neuts (auto) 12.7 H, Absolute Lymphs (auto) 1.42, Nucleated RBC % 5.2 H, Differential Comment SCANNED, Diff Path Review Reviewed 06/25/20 05:36: Sodium 127 L, Potassium 4.9, Chloride 92 L, Carbon Dioxide 22.0, Anion Gap 13, BUN 47 H, Creatinine 5.07 H, Estim Creat Clear Calc 10.49, Est GFR (MDRD) Af Amer 11 L, Est GFR (MDRD) Non-Af 9 L, BUN/Creatinine Ratio 9.3 L, Glucose 87, Calcium 7.7 L Current Medications Acetaminophen (Acetaminophen 325 Mg Tablet) 650 mg PO Q6H PRN PRN PRN Reason: Pain Score 1-10 Last Admin: 06/24/20 03:34 Dose: 650 mg Documented by: Alprazolam (Alprazolam 0.5 Mg Tablet) 1 mg PO TID PRN PRN PRN Reason: ANXIETY Last Admin: 06/24/20 20:41 Dose: 1 mg Documented by: Aspirin (Aspirin 81 Mg Tab.Chew) 81 mg PO DAILY@0800 [facility] Last Admin: 06/25/20 08:52 Dose: 81 mg Documented by: Calcium Carbonate (Calcium Carbonate 500 Mg Tablet) 500 mg PO Q4H PRN PRN PRN Reason: DYSPEPSIA Last Admin: 06/25/20 14:04 Dose: 500 mg Documented by: Dexamethasone (Dexamethasone 4 Mg Tablet) 6 mg PO DAILY@0800 [facility] Stop: 07/03/20 08:01 Last Admin: 06/25/20 08:52 Dose: 6 mg Documented by: Heparin Sodium (Porcine) (Heparin Injection (Vial) 5,000 Unit/Ml Vial) 5,000 unit SC Q12 [facility] Last Admin: 06/25/20 13:37 Dose: 5,000 unit Documented by: Heparin Sodium (Porcine) (Heparin 10,000 Units/10 Ml Vial) 2,600 units IV DAILY PRN PRN Reason: Dialysis Ibuprofen (Ibuprofen 400 Mg Tablet) 400 mg PO Q6H PRN PRN PRN Reason: Pain Score 1-10 Last Admin: 06/25/20 08:51 Dose: 400 mg Documented by: Sevelamer Carbonate (Sevelamer Carbonate 800 Mg Tablet) 1,600 mg PO TIDCM [facility] Last Admin: 06/25/20 13:37 Dose: 1,600 mg Documented by: Sodium Chloride (0.9% Saline Lock 10 Ml Syringe) 10 - 40 ml IV UD PRN PRN Reason: SALINE FLUSH Last Admin: 06/25/20 08:52 Dose: 10 ml Documented by: Home Medications: Medications to take at Discharge Prednisone 5 mg PO DAILY 01/16/18 Aspirin [Aspirin, Baby] 81 mg PO DAILY@0800 10/29/19 Sevelamer Carbonate 240 mg PO TIDCM 10/29/19 Acetaminophen [Tylenol Tablet] 650 mg PO Q6H PRN PRN #30 tab 10/31/19 Ibuprofen [Motrin] 400 mg PO Q6H PRN PRN #30 tab 10/31/19 Alprazolam [Xanax] 1 mg PO TID PRN PRN 06/23/20 Fluticasone 0.05% [Flonase Nasal [place]] 2 spray NASAL DAILY 06/23/20 Metoprolol(XL)Succ [Toprol Xl (Beta Azra)] 25 mg PO BID 06/23/20 Prednisone 2.5 mg PO 1200 06/23/20 Primary Care Physician: Jabier Arboleda DO [Primary Care Provider] - Medical Necessity - Tobacco Use Smoking Status: Never smoker Tobacco Use: Non-smoker
--- NOTE | 2020-06-25 15:04 | PCM.HP.STD ---
History of Present Illness The patient is a 64 year old F [] Past Medical History Past Medical History (Chronic Problems): Chronic Problems (Last Reviewed 06/16/20 @ 07:[address] Marc Snow MD) NSTEMI (non-ST elevated myocardial infarction) (Chronic) Dialysis patient (Chronic) Elevated troponin (Chronic) Congestive heart failure (Chronic) Rheumatoid arthritis (Chronic) Amyloidosis (Chronic) CKD (chronic kidney disease) stage 4, GFR 15-29 ml/min (Chronic) Renal anasarca (Chronic) Medical History: Medical History (Last Reviewed 06/16/20 @ 07:[address] Marc Snow MD) NSTEMI (non-ST elevated myocardial infarction) (Chronic) I21.4 Dialysis patient (Chronic) Z99.2 Acute kidney injury superimposed on CKD (Inactive) N17.9, N18.9 Elevated troponin (Chronic) R79.89 Congestive heart failure (Chronic) I50.9 Rheumatoid arthritis (Chronic) M06.9 Amyloidosis (Chronic) E85.9 CKD (chronic kidney disease) stage 4, GFR 15-29 ml/min (Chronic) N18.4 Renal anasarca (Chronic) N04.9 Hyponatremia (Acute) E87.1 Allergies No Known Allergies Allergy (Verified 06/23/20 10:05) Home Medications: Ambulatory Orders Medication Instructions Recorded Prednisone 5 mg PO DAILY 01/16/18 Aspirin [Aspirin, Baby] 81 mg PO DAILY@0800 10/29/19 Sevelamer Carbonate 240 mg PO TIDCM 10/29/19 Acetaminophen [Tylenol Tablet] 650 mg PO Q6H PRN PRN #30 tab 10/31/19 Ibuprofen [Motrin] 400 mg PO Q6H PRN PRN #30 tab 10/31/19 Alprazolam [Xanax] 1 mg PO TID PRN PRN 06/23/20 Fluticasone 0.05% [Flonase Nasal 2 spray NASAL DAILY 06/23/20 [place]] Metoprolol(XL)Succ [Toprol Xl 25 mg PO BID 06/23/20 (Beta Azra)] Prednisone 2.5 mg PO 1200 06/23/20 Surgical History: - - Left forearm AV fistula Psychiatric History: Anxiety, Depression 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 Paternal History Items: Diabetes, - Patient Problems: Active and Suspected Problems (Last Reviewed 06/16/20 @ 07:[address] Marc Snow MD) Generalized weakness (Acute) ESRD (end stage renal disease) on dialysis (Acute) Hyperkalemia (Acute) Symptomatic bradycardia (Acute) Pneumonia due to COVID-19 virus (Acute) Healthcare-associated pneumonia (Acute) COVID-19 (Acute) Hypoxia (Acute) Shortness of breath (Acute) - Physical Exam Vitals/I&O's: Vital Signs Temp Pulse Resp BP Pulse Ox 97.9 F 93 15 141/62 H 95 06/25/20 12:39 06/25/20 12:39 06/25/20 12:39 06/25/20 12:39 06/25/20 12:39 Oxygen Flow Rate (L/min) 2 Oxygen Delivery Method Room Air Weight: 81.902 kg Body Mass Index (BMI) 30.6 Finger Stick Blood Glucose 143 Intake and Output for Last 24 Hours 06/23/20 06/24/20 06/25/20 23:59 23:59 23:59 Intake Total 474.53 / 474.53 641.29 / 641.29 260 / 260 Output Total 4000 / 4000 4000 / 4000 Balance 474.53 / 474.53 -3358.71 / -3358.71 -3740 / -3740 Microbiology Past 72 Hours 06/23/20 10:13 Blood Culture (Wb) - Anticubital Right Blood Culture - Preliminary No growth in 48 hours. 06/23/20 10:10 Blood Culture (Wb) - Right Hand Blood Culture - Preliminary No growth in 48 hours. Laboratory Results 06/25/20 05:36: WBC 14.7 H, RBC 2.84 L, Hgb 8.3 L, Hct 26.2 L, MCV 92.3 D, MCH 29.2, MCHC 31.7 L D, RDW Std Deviation 53.8 H, RDW Coeff of Mika 17.0 H, Plt Count 379, MPV 10.3, Immature Gran % (Auto) 1.000 H, Neut % (Auto) 86.1 H, Lymph % (Auto) 9.7 L, [place] % (Auto) 2.6, Eos % (Auto) 0.5, Baso % (Auto) 0.1, Absolute Neuts (auto) 12.7 H, Absolute Lymphs (auto) 1.42, Nucleated RBC % 5.2 H, Differential Comment SCANNED, Diff Path Review Reviewed 06/25/20 05:36: Sodium 127 L, Potassium 4.9, Chloride 92 L, Carbon Dioxide 22.0, Anion Gap 13, BUN 47 H, Creatinine 5.07 H, Estim Creat Clear Calc 10.49, Est GFR (MDRD) Af Amer 11 L, Est GFR (MDRD) Non-Af 9 L, BUN/Creatinine Ratio 9.3 L, Glucose 87, Calcium 7.7 L Current Medications Acetaminophen (Acetaminophen 325 Mg Tablet) 650 mg PO Q6H PRN PRN PRN Reason: Pain Score 1-10 Last Admin: 06/24/20 03:34 Dose: 650 mg Documented by: Alprazolam (Alprazolam 0.5 Mg Tablet) 1 mg PO TID PRN PRN PRN Reason: ANXIETY Last Admin: 06/24/20 20:41 Dose: 1 mg Documented by: Aspirin (Aspirin 81 Mg Tab.Chew) 81 mg PO DAILY@0800 [facility] Last Admin: 06/25/20 08:52 Dose: 81 mg Documented by: Calcium Carbonate (Calcium Carbonate 500 Mg Tablet) 500 mg PO Q4H PRN PRN PRN Reason: DYSPEPSIA Last Admin: 06/25/20 14:04 Dose: 500 mg Documented by: Dexamethasone (Dexamethasone 4 Mg Tablet) 6 mg PO DAILY@0800 [facility] Stop: 07/03/20 08:01 Last Admin: 06/25/20 08:52 Dose: 6 mg Documented by: Heparin Sodium (Porcine) (Heparin Injection (Vial) 5,000 Unit/Ml Vial) 5,000 unit SC Q12 [facility] Last Admin: 06/25/20 13:37 Dose: 5,000 unit Documented by: Heparin Sodium (Porcine) (Heparin 10,000 Units/10 Ml Vial) 2,600 units IV DAILY PRN PRN Reason: Dialysis Ibuprofen (Ibuprofen 400 Mg Tablet) 400 mg PO Q6H PRN PRN PRN Reason: Pain Score 1-10 Last Admin: 06/25/20 08:51 Dose: 400 mg Documented by: Sevelamer Carbonate (Sevelamer Carbonate 800 Mg Tablet) 1,600 mg PO TIDCM [facility] Last Admin: 06/25/20 13:37 Dose: 1,600 mg Documented by: Sodium Chloride (0.9% Saline Lock 10 Ml Syringe) 10 - 40 ml IV UD PRN PRN Reason: SALINE FLUSH Last Admin: 06/25/20 08:52 Dose: 10 ml Documented by: Assessment/Plan All Active Problems (Last Reviewed 06/16/20 @ 07:[address] Marc Snow MD) Generalized weakness (Acute) ESRD (end stage renal disease) on dialysis (Acute) Hyperkalemia (Acute) Symptomatic bradycardia (Acute) Chest pain (Acute) Septic shock (Acute) Pneumonia due to COVID-19 virus (Acute) Healthcare-associated pneumonia (Acute) COVID-19 (Acute) Hypoxia (Acute) Shortness of breath (Acute) Hyponatremia (Acute)
--- NOTE | 2020-06-25 15:56 | PN.RENAL_ITS ---
Patient Problems: Active and Suspected Problems (Last Reviewed 06/16/20 @ 07:[address] Marc Snow MD) Generalized weakness (Acute) ESRD (end stage renal disease) on dialysis (Acute) Hyperkalemia (Acute) Symptomatic bradycardia (Acute) Pneumonia due to COVID-19 virus (Acute) Healthcare-associated pneumonia (Acute) COVID-19 (Acute) Hypoxia (Acute) Shortness of breath (Acute) Subjective: no new events - Physical Exam Vitals/I&O's: Vital Signs Temp Pulse Resp BP Pulse Ox 97.9 F 107 H 15 141/62 H 95 06/25/20 12:39 06/25/20 15:00 06/25/20 12:39 06/25/20 12:39 06/25/20 12:39 Oxygen Flow Rate (L/min) 2 Oxygen Delivery Method Room Air Weight: 81.902 kg Body Mass Index (BMI) 30.6 Finger Stick Blood Glucose 143 Intake and Output for Last 24 Hours 06/23/20 06/24/20 06/25/20 23:59 23:59 23:59 Intake Total 474.53 / 474.53 641.29 / 641.29 260 / 260 Output Total 4000 / 4000 4000 / 4000 Balance 474.53 / 474.53 -3358.71 / -3358.71 -3740 / -3740 General: Alert, Oriented x3, Cooperative HEENT: Atraumatic, PERRLA, EOMI, Normocephalic Neck: Supple, No JVD, Negative Carotid Bruits Lungs: Clear to auscultation, Normal air movement Cardiovascular: Regular rate, No murmurs Abdomen: Bowel Sounds Present, Soft, Non Tender Extremities: No edema, Capillary Refill Less than 3 Seconds Skin: No rashes, No breakdown Musculoskeletal: No Tenderness to Palpation of Joints or Extremities Neurological: Cranial nerves II-XII grossly intact Psych/Mental Status: Normal Affect, Appropriate Microbiology Past 72 Hours 06/23/20 10:13 Blood Culture (Wb) - Anticubital Right Blood Culture - Preliminary No growth in 48 hours. 06/23/20 10:10 Blood Culture (Wb) - Right Hand Blood Culture - Preliminary No growth in 48 hours. Laboratory Results 06/25/20 05:36: WBC 14.7 H, RBC 2.84 L, Hgb 8.3 L, Hct 26.2 L, MCV 92.3 D, MCH 29.2, MCHC 31.7 L D, RDW Std Deviation 53.8 H, RDW Coeff of Mika 17.0 H, Plt Count 379, MPV 10.3, Immature Gran % (Auto) 1.000 H, Neut % (Auto) 86.1 H, Lymph % (Auto) 9.7 L, [place] % (Auto) 2.6, Eos % (Auto) 0.5, Baso % (Auto) 0.1, Absolute Neuts (auto) 12.7 H, Absolute Lymphs (auto) 1.42, Nucleated RBC % 5.2 H, Differential Comment SCANNED, Diff Path Review Reviewed 06/25/20 05:36: Sodium 127 L, Potassium 4.9, Chloride 92 L, Carbon Dioxide 22.0, Anion Gap 13, BUN 47 H, Creatinine 5.07 H, Estim Creat Clear Calc 10.49, Est GFR (MDRD) Af Amer 11 L, Est GFR (MDRD) Non-Af 9 L, BUN/Creatinine Ratio 9.3 L, Glucose 87, Calcium 7.7 L Current Medications Acetaminophen (Acetaminophen 325 Mg Tablet) 650 mg PO Q6H PRN PRN PRN Reason: Pain Score 1-10 Last Admin: 06/24/20 03:34 Dose: 650 mg Documented by: Alprazolam (Alprazolam 0.5 Mg Tablet) 1 mg PO TID PRN PRN PRN Reason: ANXIETY Last Admin: 06/24/20 20:41 Dose: 1 mg Documented by: Aspirin (Aspirin 81 Mg Tab.Chew) 81 mg PO DAILY@0800 [facility] Last Admin: 06/25/20 08:52 Dose: 81 mg Documented by: Calcium Carbonate (Calcium Carbonate 500 Mg Tablet) 500 mg PO Q4H PRN PRN PRN Reason: DYSPEPSIA Last Admin: 06/25/20 14:04 Dose: 500 mg Documented by: Dexamethasone (Dexamethasone 4 Mg Tablet) 6 mg PO DAILY@0800 [facility] Stop: 07/03/20 08:01 Last Admin: 06/25/20 08:52 Dose: 6 mg Documented by: Heparin Sodium (Porcine) (Heparin Injection (Vial) 5,000 Unit/Ml Vial) 5,000 unit SC Q12 [facility] Last Admin: 06/25/20 13:37 Dose: 5,000 unit Documented by: Heparin Sodium (Porcine) (Heparin 10,000 Units/10 Ml Vial) 2,600 units IV DAILY PRN PRN Reason: Dialysis Ibuprofen (Ibuprofen 400 Mg Tablet) 400 mg PO Q6H PRN PRN PRN Reason: Pain Score 1-10 Last Admin: 06/25/20 08:51 Dose: 400 mg Documented by: Sevelamer Carbonate (Sevelamer Carbonate 800 Mg Tablet) 1,600 mg PO TIDCM [facility] Last Admin: 06/25/20 13:37 Dose: 1,600 mg Documented by: Sodium Chloride (0.9% Saline Lock 10 Ml Syringe) 10 - 40 ml IV UD PRN PRN Reason: SALINE FLUSH Last Admin: 06/25/20 08:52 Dose: 10 ml Documented by: Medical Necessity - Tobacco Use Smoking Status: Never smoker Tobacco Use: Non-smoker Assessment/Plan All Active Problems (Last Reviewed 06/16/20 @ 07:[address] Marc Snow MD) Generalized weakness (Acute) ESRD (end stage renal disease) on dialysis (Acute) Hyperkalemia (Acute) Symptomatic bradycardia (Acute) Chest pain (Acute) Septic shock (Acute) Pneumonia due to COVID-19 virus (Acute) Healthcare-associated pneumonia (Acute) COVID-19 (Acute) Hypoxia (Acute) Shortness of breath (Acute) Hyponatremia (Acute) ESRD HYperkalemia fluid overload HD today multiple discussions with Dr Javier Sterling tunneled line hopefully tomorrow will not be able to get declot here today or tomorrow from my end ok to dc after tunneled line will call if any [facility] are willing to do declot in covid patients.
--- NOTE | 2020-06-25 16:25 | PCM.PN.BLA ---
Progress Note Tele reviewed- No further bradycardia. One 4 beat run of nsvt. Continue to hold BB. Continue tele monitoring. STROKE Vital Signs/Narrative: Vital Signs Temp Pulse Resp BP Pulse Ox 06/25/20 15:00 107 H 06/25/20 12:39 97.9 F 93 15 141/62 H 95
--- NOTE | 2020-06-25 22:25 | NURSING ---
report called to [facility] 7W to Evelyn Flaherty RN at this time.
--- NOTE | 2020-06-25 23:40 | NURSING ---
pt transferred to [facility], under care of EMS personnel at this time.
--- NOTE | 2020-06-26 18:37 | DS.PCM_ITS ---
Discharge Date and Diagnosis - Problem List Patient Problems: Active and Suspected Problems (Last Reviewed 06/16/20 @ 07:[address] Marc Snow MD) Generalized weakness (Acute) ESRD (end stage renal disease) on dialysis (Acute) Hyperkalemia (Acute) Symptomatic bradycardia (Acute) Pneumonia due to COVID-19 virus (Acute) Healthcare-associated pneumonia (Acute) COVID-19 (Acute) Hypoxia (Acute) Shortness of breath (Acute) Date of Admission: 06/23/20 Date of Discharge: 06/25/20 - Primary Discharge Diagnosis Acute Problems: Active Problems (Last Reviewed 06/16/20 @ 07:[address] Marc Snow MD) #1 acute fluid overload secondary to end-stage renal disease and acute on chronic diastolic congestive heart failure #2 Hemodynamic shock secondary to use of beta-blockers and reduced clearance of same #3 end-stage renal disease with fluid overload #4 amyloidosis #5 bradycardia- secondary to beta-azra usage #6 hypoxia-secondary to fluid overload #7 recent COVID-19 diagnosis #8 hyperkalemia secondary to end-stage renal disease #9 hyponatremia #10 leukocytosis-probably secondary to stress reaction #11 anemia of chronic renal disease - Secondary Discharge Diagnosis Chronic Problems: Chronic Problems (Last Reviewed 06/16/20 @ 07:[address] Marc Snow MD) NSTEMI (non-ST elevated myocardial infarction) (Chronic) Dialysis patient (Chronic) Elevated troponin (Chronic) Congestive heart failure (Chronic) Rheumatoid arthritis (Chronic) Amyloidosis (Chronic) CKD (chronic kidney disease) stage 4, GFR 15-29 ml/min (Chronic) Renal anasarca (Chronic) Hospital Course and Treatment Operations: None Procedures: Dialysis, - - Dialysis catheter insertion Summary of Care Provided: The patient is a 64 year old F who presented to the emergency room at [facility] with a chief complaint of shortness of breath, she had recently been diagnosed with COVID-19 and released from the hospital, she is a chronic end-stage renal disease patient on dialysis. Work-up in the emergency room included a chest x-ray which showed bilateral pulmonary infiltrates suggestive of either CHF or diffuse pneumonia, patient's white count was elevated, she required nasal cannula oxygen at a low flow rate. Patient was felt initially to possibly have hospital-acquired pneumonia and fluid overload, she was admitted to [facility] to but after admission she decompensated with marked bradycardia secondary to her usage of beta blocking agents and reduced clearance of these agents due to her end-stage renal disease. She required pressor support for several hours and administration of atropine. Dialysis was attempted after she was admitted but her permanent dialysis fistula clotted off and we were unable to use it and so dialysis was delayed. Patient was transferred to ICU due to these problems and was stabilized after the insertion of a temporary dialysis catheter the next day with dialysis. Patient's beta- azra was cleared and she was no longer bradycardic and her pressor agents were removed. Due to the fact her fistula was clotted off and this needed to be addressed by interventional radiology, it was felt this patient would benefit from transfer to a tertiary facility where this could be accomplished. [facility] agreed to take the patient in transfer and she was transferred there in stable condition. On 06/25/2020, patient was seen and examined: On examination she appeared in good health and spirits, she does not appear to be in any distress. She is not on supplemental oxygen. Vital signs as documented. Skin warm and dry and without overt rashes. Neck without JVD, thyroid appears normal, trachea is midline, neck is supple. Lungs clear, normal air movement was noted. Heart exam notable for regular rhythm, normal sounds and absence of murmurs, rubs or gallops. Abdomen unremarkable and without evidence of organomegaly, masses, or abdominal aortic enlargement, bowel sounds are present in all 4 quadrants, no abdominal tenderness was noted. Extremities nonedematous, no cyanosis was noted, no clubbing was noted. Neuro: Cranial nerves II through XII are grossly intact, no focal motor deficits were noted, sensation to light touch and pinprick is intact, motor exam 5/5 throughout. Psych: Patient is alert and oriented x3, she does not appear anxious or depressed, she does not appear agitated. Patient Problems: Active and Suspected Problems (Last Reviewed 06/16/20 @ 07:[address] Marc Snow MD) Generalized weakness (Acute) ESRD (end stage renal disease) on dialysis (Acute) Hyperkalemia (Acute) Symptomatic bradycardia (Acute) Pneumonia due to COVID-19 virus (Acute) Healthcare-associated pneumonia (Acute) COVID-19 (Acute) Hypoxia (Acute) Shortness of breath (Acute) - Physical Exam Vitals/I&O's: Vital Signs Temp Pulse Resp BP Pulse Ox 98.3 F 100 21 H 149/92 H 98 06/25/20 20:00 06/25/20 20:00 06/25/20 20:00 06/25/20 20:00 06/25/20 20:00 Oxygen Flow Rate (L/min) 2 Oxygen Delivery Method Room Air Weight: 81.902 kg Body Mass Index (BMI) 30.6 Finger Stick Blood Glucose 143 Intake and Output for Last 24 Hours 06/24/20 06/25/20 06/26/20 23:59 23:59 23:59 Intake Total 641.29 / 641.29 560 / 560 Output Total 4000 / 4000 4000 / 4000 Balance -3358.71 / -3358.71 -3440 / -3440 Microbiology Past 72 Hours 06/23/20 10:13 Blood Culture (Wb) - Anticubital Right Blood Culture - Preliminary No growth in 48 hours. 06/23/20 10:10 Blood Culture (Wb) - Right Hand Blood Culture - Preliminary No growth in 48 hours. Home Medications: Medications to take at Discharge Prednisone 5 mg PO DAILY 01/16/18 Aspirin [Aspirin, Baby] 81 mg PO DAILY@0800 10/29/19 Sevelamer Carbonate 240 mg PO TIDCM 10/29/19 Acetaminophen [Tylenol Tablet] 650 mg PO Q6H PRN PRN #30 tab 10/31/19 Ibuprofen [Motrin] 400 mg PO Q6H PRN PRN #30 tab 10/31/19 Alprazolam [Xanax] 1 mg PO TID PRN PRN 06/23/20 Fluticasone 0.05% [Flonase Nasal [place]] 2 spray NASAL DAILY 06/23/20 Metoprolol(XL)Succ [Toprol Xl (Beta Azra)] 25 mg PO BID 06/23/20 Prednisone 2.5 mg PO 1200 06/23/20 Primary Care Physician: Jabier Arboleda DO [Primary Care Provider] - Disposition: Acute care Hospital Minutes spent on discharge:: 33 Patient Condition:: Stable Medical Necessity - Tobacco Use Smoking Status: Never smoker Tobacco Use: Non-smoker Meaningful Use Info Meaningful Use Diagnoses (Choose all that apply): None applicable Inpatient E&M: 13835 Disch Hosp
== END 2020-06-25 23:35 | disposition short-term general hospital (02) | DRG 291 ==
LOC: ED 12:14 → ICU 13:36
PROVIDERS: Internal Medicine Critical Care Medicine; Admitting Provider Internal Medicine; Emergency Provider Emergency Medicine; PCP Family Medicine; Visit Provider Internal Medicine
DX: I13.2 Hypertensive heart and chronic kidney disease with heart failure and with stage 5 chronic kidney disease, or end stage renal disease (principal); N18.6 End stage renal disease; U07.1 COVID-19; I50.33 Acute on chronic diastolic (congestive) heart failure; J12.89 Other viral pneumonia; E85.9 Amyloidosis, unspecified; E87.1 Hypo-osmolality and hyponatremia; N04.9 Nephrotic syndrome with unspecified morphologic changes; T82.818A Embolism due to vascular prosthetic devices, implants and grafts, initial encounter; Y83.2 Surgical operation with anastomosis, bypass or graft as the cause of abnormal reaction of the patient, or of later complication, without mention of misadventure at the time of the procedure; R09.02 Hypoxemia; E87.5 Hyperkalemia; D63.1 Anemia in chronic kidney disease; I25.2 Old myocardial infarction; M06.9 Rheumatoid arthritis, unspecified; D72.828 Other elevated white blood cell count; F32.9 Major depressive disorder, single episode, unspecified; F41.9 Anxiety disorder, unspecified; I95.2 Hypotension due to drugs; R00.1 Bradycardia, unspecified; T44.7X5A Adverse effect of beta-adrenoreceptor antagonists, initial encounter; Y92.230 Patient room in hospital as the place of occurrence of the external cause; Z99.2 Dependence on renal dialysis; Z79.82 Long term (current) use of aspirin; Z79.899 Other long term (current) drug therapy
CPT/HCPCS: 36415; 71045; 80048; 80053; 83605; 85025; 85610; 85730; 87040; 90937; 93005; 97802; 99285; J7030; J7040; A4216; C1752; G0257; J1610; J2405

== ENCOUNTER 2020-07-02 06:59 | Inpatient (IN) | payer OTHER, SELFPAY ==
[2020-06-23 14:34] VITALS: BMI 30.6
[2020-07-02] VITALS (35 sets, daily range): BP systolic 69–115; BP diastolic 38–76; PULSE 43–101; RESP 11–20; TEMP 35.4–36.9; O2SAT 88–100; BMI 38.0; BMI 30.5; BMI 30.6
--- NOTE | 2020-07-02 07:25 | RAD_ITS ---
STUDY: X-RAY CHEST REASON FOR EXAM: Female, 64 years old. WEAKNESS, DIARRHEA, SOB. COVID POSITIVE TECHNIQUE: Single AP portable view of the chest. COMPARISON: Comparison is made with prior study dated 06/24/2020. FINDINGS: A right sided dialysis catheter is in situ with tip at the junction of the superior vena cava and right atrium. EKG electrodes are seen. The lungs are clear and expanded. There is no demonstrated pleural abnormality. There is moderate cardiac enlargement. Normal mediastinum and christine. Normal visualized pulmonary arteries. There is atherosclerotic calcification of the aortic arch with tortuosity. There are diffuse degenerative changes of the visualized thoracic spine. Bilateral shoulder replacement. There is no demonstrated abnormality of the visualized soft tissue structures of the upper abdomen. RAD/Chest 1 View (Portable) IMPRESSION: Cardiomegaly. The lungs are clear. Electronically Signed: Pop Pimentel, at 10:12 EST , Service support ,
--- NOTE | 2020-07-02 07:26 | EKG12_ITS ---
Test Reason : Blood Pressure : / mmHG Vent. Rate : 086 BPM Atrial Rate : 086 BPM P-R Int : 174 ms QRS Dur : 116 ms QT Int : 416 ms P-R-T Axes : 066 -34 175 degrees QTc Int : 497 ms Normal sinus rhythm Left axis deviation Low voltage QRS ST & T wave abnormality, consider inferolateral ischemia Prolonged QT Abnormal ECG Confirmed by ESTER LOZANO, MARCELLE ([id number]), map editor EDIS JACOBS ([id number]) on 07/03/2020 11:07:29 AM Referred By: CAPRICE Confirmed By:MARCELLE NORMAN MD
--- NOTE | 2020-07-02 07:27 | ED.VIS.GEN ---
History of Present Illness Chief Complaint: Weakness Informant: Patient Onset: Yesterday Current Severity: Moderate Maximum Severity: Moderate Narrative: Patient presents secondary to generalized weakness and chest pressure. She is known Covid positive, last admitted 1 week ago secondary to electrolyte abnormalities. She does have end-stage renal disease on dialysis, Monday, , and Monday. She last had a 3-hour dialysis run 2 days ago. Patient states last evening she started feeling very weak to the point where she was not able to walk around her home. She reports some chest heaviness. She does report having diarrhea the past couple of days. - Past Medical History (1) ESRD (end stage renal disease) on dialysis Status: Chronic (2) Congestive heart failure Status: Chronic (3) Rheumatoid arthritis Status: Chronic Past Medical History - Allergies and Home Meds Allergies/Adverse Reactions: Allergies No Known Allergies Allergy (Verified 06/23/20 10:05) Primary Care Physician: Jabier Arboleda DO [Primary Care Provider] - Prior records reviewed: Yes Surgical History: - - Left forearm AV fistula Smoking Status: Never smoker - Family History Paternal Family History: Reports: Diabetes, - Maternal Family History: Reports: - - Denies known maternal medical history including cardiac history. Review of Systems General: Denies: Chills, Fever Eyes: Denies: Visual changes - bilaterally ENT: Denies: Bilateral ear pain Cardiovascular: Reports: Chest pain Respiratory: Denies: Dyspnea, Cough Gastrointestinal: Reports: Diarrhea. Denies: Abdominal pain, Nausea, Vomiting Musculoskeletal: Denies: Extremity Pain Skin: Denies: Rash Neurological: Reports: Weakness - Generalized weakness Hematologic: Denies: Easy bruising, Easy bleeding Allergy: Denies: Uticaria Physical Exam Vital Signs/Narrative: Vital Signs Temp Pulse Resp BP Pulse Ox 07/02/20 07:00 97.1 F L 89 18 86/53 L 97 Inital Vital Signs reviewed: Yes General: Well nourished, Well developed Head: Normocephalic ENT: Moist mucous membranes Neck: Supple Cardiovascular: Regular rate, Regular rhythm Respiratory: No distress, CTA bilaterally Abdomen: Soft, Nontender, Normal bowel sounds Extremities: Nontender, Edema - 1+ bilateral lower extremity edema Skin: Normal color Neurological: Alert, Oriented x3 Psychological: Normal affect Diagnostic/Tx/Re-eval Impressions Chest X-Ray 07/02/20 07:25 IMPRESSION: Cardiomegaly. The lungs are clear. Electronically Signed: Pop Pimentel, at 10:12 EST , Service support , Chest CTA 07/02/20 10:35 IMPRESSION: No evidence of pulmonary emboli. Mild increased markings at the lung bases as well as in the right middle lobe suggestive of scarring. No focal consolidation is seen. Electronically Signed: Pop Pimentel, at 10:53 EST , Service support , 07/02/20 07:25 Chest 1 View (Portable) [RAD] Stat 07/02/20 10:35 CTA Chest W/WO Contrast [CT] Stat Laboratory Results 07/02/20 07/02/20 07/02/20 08:23 08:23 08:23 WBC 27.9 H RBC 1.53 L Hgb 4.5 L* Hct 15.3 L MCV 100.0 H MCH 29.4 MCHC 29.4 L RDW Std Deviation 68.1 H RDW Coeff of Mika 19.0 H Plt Count 304 MPV 11.2 Immature Gran % (Auto) 3.700 H Neut % (Auto) 80.6 H Lymph % (Auto) 9.7 L [place] % (Auto) 5.8 Eos % (Auto) 0.1 Baso % (Auto) 0.1 Absolute Neuts (auto) 22.5 H Absolute Lymphs (auto) 2.70 Nucleated RBC % 0.2 Differential Comment SCANNED Diff Path Review May foll Hypochromasia 1+ Anisocytosis 2+ Microcytosis 1+ Macrocytosis 1+ D-Dimer Quant (PE/DVT) 15.16 H* Sodium 130 L Potassium 6.1 H* Chloride 93 L Carbon Dioxide 22.0 Anion Gap 15 BUN 69 H Creatinine 5.59 H Estim Creat Clear Calc 7.30 Est GFR (MDRD) Af Amer 10 L Est GFR (MDRD) Non-Af 8 L BUN/Creatinine Ratio 12.3 Glucose 75 Calcium 7.6 L Troponin I 0.651 H* Crossmatch 07/02/20 10:30 WBC RBC Hgb Hct MCV MCH MCHC RDW Std Deviation RDW Coeff of Mika Plt Count MPV Immature Gran % (Auto) Neut % (Auto) Lymph % (Auto) [place] % (Auto) Eos % (Auto) Baso % (Auto) Absolute Neuts (auto) Absolute Lymphs (auto) Nucleated RBC % Differential Comment Diff Path Review Hypochromasia Anisocytosis Microcytosis Macrocytosis D-Dimer Quant (PE/DVT) Sodium Potassium Chloride Carbon Dioxide Anion Gap BUN Creatinine Estim Creat Clear Calc Est GFR (MDRD) Af Amer Est GFR (MDRD) Non-Af BUN/Creatinine Ratio Glucose Calcium Troponin I Crossmatch See Detail - EKG Initial EKG Interpretation: Sinus Rhythm - Sinus [address] depression, chronic and unchanged compared to prior studies. - Medical Decision Making Patient was given a small IV fluid bolus given her mild hypotension and dialysis status. Systolic blood pressures have been running in the 90s. Patient is significantly anemic with a hemoglobin of 4.5. Potassium is 6.1 but no changes on EKG concerning for significant effects of hyperkalemia. Troponin is elevated but she tends to run chronically elevated. White count is significantly elevated and in light of the fact that she was complaining of diarrhea stool studies were ordered including C. difficile. She has not yet provided a sample. I spoke with Dr. Mccullough, covering for her telecommunications support. He states if we can have her type and cross for 2 units they will dialyze her today and give her blood at that time. On repeat evaluation patient is resting comfortably. She is asking for something for pain. I advised her I would give her Tylenol. She is asking for something stronger. I advised this was not available in light of the fact that her blood pressure has been running low and on previous visits her had commented that she has requested narcotics in the past and overdosed. I will speak with hospitalist regarding admission. ED Disposition - Plan for ED Patient: Disposition: Acute Care [facility] Diagnosis: Weakness, Anemia, Chronic renal failure Referrals: Jabier Arboleda DO [Primary Care Provider] -
[2020-07-02 08:37] LABS: Absolute Neutrophil Count 22.5 X10^3/uL (2.0-7.7); Basophil# 0.03 X10^3/uL; Basophil% 0.1 % (0-1); Eosinophil# 0.02 X10^3/uL; Eosinophils% 0.1 % (0-5); Hematocrit 15.3 % (37-47); Lymphocyte % 9.7 % (19-41); Mean Corp Hgb Conc 29.4 g/dL (32-36); Mean Corpuscular Hgb 29.4 pg (27.0-32.0); Mean Platelet Vol. 11.2 fl (6.2-12.0); Monocyte# 1.62 X10^3/uL; Monocyte% 5.8 % (0-10); NRBC Flagged by Analyzer 0.2 % (0-5); Neutrophil # 22.53 X10^3/uL (2.7-7.7); Neutrophil % 80.6 % (47-70); POSITIVE COUNT YES; POSITIVE DIFFERENTIAL YES; POSITIVE MORPHOLOGY YES; Platelet Count 304 K/mm3 (150-450); RBC Distribution Width SD 68.1 fl (35.1-43.9); Red Blood Count 1.53 M/mm3 (4.2-5.4); White Blood Count 27.9 K/mm3 (4.4-11.0)
[2020-07-02 08:57] LABS: Anion Gap 15 (5-15); BUN 69 mg/dL (7-18); BUN/Creat Ratio 12.3 RATIO (10-20); Calcium,Total 7.6 mg/dL (8.5-10.1); Chloride 93 mmol/L (98-107); Creatinine, Serum 5.59 mg/dL (0.55-1.02); EST Glomerular Filtration Rate 8 mL/min (>60); Est Glom Filt Rate - Afr Amer 10 mL/min (>60); Glucose 75 mg/dL (74-106); Potassium 6.1 mmol/L (3.5-5.1); Sodium Level 130 mmol/L (136-145)
[2020-07-02 08:58] LABS: D-Dimer Quantitative (DVT/PE) 15.16 FEU/ug/m (0.27-0.49); Hemoglobin 4.5 g/dL (12.0-15.0)
[2020-07-02 09:06] LABS: Differential Comment SCANNED
[2020-07-02 09:07] LABS: Anisocytosis 2+; Hypochromasia 1+; Macrocytosis 1+; Microcytosis 1+
--- NOTE | 2020-07-02 09:20 | NURSING ---
[address] FERR[address] OFFICE[address] SHELLEY ON FOR ESHA
--- NOTE | 2020-07-02 09:42 | NURSING ---
DR KARSTEN OLIVAS
--- NOTE | 2020-07-02 10:20 | NURSING ---
1010 DR SHELLEY PAGED BY SANJEEV AT OFFICE
--- NOTE | 2020-07-02 10:35 | CT_ITS ---
STUDY: CTA CHEST REASON FOR EXAM: Female, 64 years old. COVID, INCREASE SOB AND CHEST PAIN RADIATION DOSAGE (If Supplied By Facility): CTDIvol = ( 13.75 ) mGy, DLP = ( 531.57 ) mGycm TECHNIQUE: The examination was performed with the intravenous administration of IV 100mL Isovue-370. Post-processing of the angiographic images was performed, with multiplanar reformation and 3D reconstruction. Individualized dose optimization techniques were used for this CT. COMPARISON: Comparison is made with prior study dated 06/15/2020. FINDINGS: Normal enhancement of the main pulmonary artery and right and left pulmonary arteries. Normal enhancement of the bilateral peripheral pulmonary arteries. There is no demonstrated pulmonary embolism. Normal thoracic aorta and visualized great vessels. There is no demonstrated aortic dissection. Cardiomegaly. Normal mediastinum. Normal hilar regions. Normal visualized trachea and bronchi. The lungs are well expanded. Stable mild increased markings at the lung bases with minimal pleural thickening. No definite infiltrate is seen. Minimal increased markings in the lingular segment of the left upper lobe. Normal chest wall structures. There are degenerative changes of thoracic spine. Stable hepatic cysts. CT/CTA Chest W/WO Contrast IMPRESSION: No evidence of pulmonary emboli. Mild increased markings at the lung bases as well as in the right middle lobe suggestive of scarring. No focal consolidation is seen. Electronically Signed: Pop Pimentel, at 10:53 EST , Service support ,
--- NOTE | 2020-07-02 11:06 | NURSING ---
DR NOGUEIRA FOR DR VASQUES
--- NOTE | 2020-07-02 11:24 | NURSING ---
PCU KOTSONIS ANEMIA, WEAKNESS, DIARRHEA
--- NOTE | 2020-07-02 11:32 | ED.RN ---
notified of admission and given update.
[2020-07-02] MEDS: Acetaminophen 500 MG Tablet 1000 MG PO (11:38)
--- NOTE | 2020-07-02 11:42 | ED.RN ---
This nurse notified by blood bank that 2 units of prbcs are ready. Per MD blood to be given during dialysis.
--- NOTE | 2020-07-02 11:49 | NURSING ---
ICU 7
[2020-07-02] MEDS: Heparin 10,000 UNITS/10 ML Vial IV (19:15)
--- NOTE | 2020-07-02 19:36 | DIALYSIS ---
hemodialysis completed x 3.5 hours. 3 units of prbc given via hd machine. stable run. ran even after count blood product administration. Report to Coty RIZVI
--- NOTE | 2020-07-02 19:38 | PCM.HP.STD ---
History of Present Illness Date of Admission: 07/02/20 Chief Complaint: Weakness The patient is a 64 year old F H as below who was recently admitted on 06/15/2020 for Covid pneumonia. This was a very mild case and she is currently 16 days out from the positive past and over 20 days out since symptom onset and she states that she does not have any symptoms of a URI, shortness of breath or dizziness. She is weak and states that about 2 days ago she noticed blood in her stool though that was just one time. She does have a history of hemorrhoids. She presented to the ER today because she just felt generalized weakness and some chest pressure. It was found that she had an elevated troponin to 0.651 though this is not in and of itself unremarkable considering she has never actually had a normal troponin given her renal failure that requires dialysis also her D-dimer significantly elevated and a CTA in the ER was negative. She was found to be severely anemic with a hemoglobin of 4.5, likely from a GI source given her history from 2 days ago bloody BM. A stool studies and fecal occult are also pending secondary to her history of diarrhea though she has not had a bowel movement yet during the admission. Past Medical History Past Medical History (Chronic Problems): Chronic Problems (Last Reviewed 06/16/20 @ 07:[address] Marc Snow MD) ESRD (end stage renal disease) on dialysis (Chronic) Chronic renal failure (Chronic) NSTEMI (non-ST elevated myocardial infarction) (Chronic) Dialysis patient (Chronic) Elevated troponin (Chronic) Congestive heart failure (Chronic) Rheumatoid arthritis (Chronic) Amyloidosis (Chronic) CKD (chronic kidney disease) stage 4, GFR 15-29 ml/min (Chronic) Renal anasarca (Chronic) Medical History: Medical History (Last Reviewed 06/16/20 @ 07:[address] Marc Snow MD) NSTEMI (non-ST elevated myocardial infarction) (Chronic) I21.4 Dialysis patient (Chronic) Z99.2 Acute kidney injury superimposed on CKD (Inactive) N17.9, N18.9 Elevated troponin (Chronic) R79.89 Congestive heart failure (Chronic) I50.9 Rheumatoid arthritis (Chronic) M06.9 Amyloidosis (Chronic) E85.9 CKD (chronic kidney disease) stage 4, GFR 15-29 ml/min (Chronic) N18.4 Renal anasarca (Chronic) N04.9 Hyponatremia (Acute) E87.1 Allergies No Known Allergies Allergy (Verified 06/23/20 10:05) Home Medications: Ambulatory Orders Medication Instructions Recorded Aspirin [Aspirin, Baby] 81 mg PO DAILY@0800 10/29/19 Sevelamer Carbonate 240 mg PO TIDCM 10/29/19 Acetaminophen [Tylenol Tablet] 650 mg PO Q6H PRN PRN #30 tab 10/31/19 Ibuprofen [Motrin] 400 mg PO Q6H PRN PRN #30 tab 10/31/19 Alprazolam [Xanax] 1 mg PO TID PRN PRN 06/23/20 Fluticasone 0.05% [Flonase Nasal 2 spray NASAL DAILY 06/23/20 [place]] Metoprolol(XL)Succ [Toprol Xl 25 mg PO BID 06/23/20 (Beta Azra)] Prednisone 2.5 mg PO 1200 06/23/20 Surgical History: - - Left forearm AV fistula Psychiatric History: Anxiety, Depression [employer] History: No pertinent [employer] history Smoking Status: Never smoker Alcohol: None Drugs: None - *Family History Maternal History Items: - - Denies known maternal medical history including cardiac history. Paternal History Items: Diabetes, - Review of Systems Constitutional: Reports: Weakness. Denies: Chills, Fever, Weight Change HEENT: Denies: Head Aches, Sinus Congestion, Sinus Drainage Cardiovascular: Reports: Chest Pressure. Denies: Chest Pain, Palpitations Respiratory: Denies: Cough, Shortness of Breath, Shortness of breath at rest, Sputum production Gastrointestinal: Reports: Diarrhea, Melena. Denies: Abdominal Pain, Nausea, Vomiting Genitourinary: Denies: Dysuria Musculoskeletal: Denies: Joint Pain, Joint Tenderness Skin: Reports: - - Pale. Denies: Rash, Wounds Neurological: Denies: Numbness, Tingling, Focal weakness Psychiatric: Denies: Anxiety, Depression Hematologic/ Lymphatic: Denies: Easy Bruising, Easy Bleeding VTE Information - Inpt Only VTE Present on Admission: No Patient Problems: Active and Suspected Problems (Last Reviewed 06/16/20 @ 07:[address] Marc Snow MD) Generalized weakness (Acute) Anemia (Acute) - Physical Exam Vitals/I&O's: Vital Signs Temp Pulse Resp BP Pulse Ox 97 F L 87 16 108/74 98 07/02/20 19:15 07/02/20 19:15 07/02/20 19:15 07/02/20 19:15 07/02/20 19:15 Oxygen Flow Rate (L/min) 2 Oxygen Delivery Method Nasal Cannula Weight: 189 lb 6.033 oz Body Mass Index (BMI) 30.5 Finger Stick Blood Glucose 143 Intake and Output for Last 24 Hours 06/30/20 07/01/20 07/02/20 23:59 23:59 23:59 Intake Total 1850 / 1850 Output Total 1500 / 1500 Balance 350 / 350 General: Alert, Oriented x3, Cooperative, No apparent distress, - - Very pale HEENT: Atraumatic, PERRLA, EOMI, Normocephalic, - - Pale conjunctiva Oral: Dry Mucosa Neck: Supple, No JVD Lungs: Clear to auscultation, Normal air movement, No rhonchi, No wheeze, No rales Cardiovascular: Regular Rhythm, Normal S1, Normal S2, No murmurs, Bradycardic Abdomen: Soft, Non Tender, Non-Distended, No Hepato-splenomegaly Extremities: No edema, Capillary Refill Less than 3 Seconds Skin: No rashes, No breakdown Neurological: Neuro grossly intact, Sensory exam intact to light touch and pain Psych/Mental Status: Normal Affect, Appropriate Laboratory Results 07/02/20 08:23: WBC 27.9 H, RBC 1.53 L, Hgb 4.5 L*, Hct 15.3 L, MCV 100.0 H, MCH 29.4, MCHC 29.4 L, RDW Std Deviation 68.1 H, RDW Coeff of Mika 19.0 H, Plt Count 304, MPV 11.2, Immature Gran % (Auto) 3.700 H, Neut % (Auto) 80.6 H, Lymph % (Auto) 9.7 L, [place] % (Auto) 5.8, Eos % (Auto) 0.1, Baso % (Auto) 0.1, Absolute Neuts (auto) 22.5 H, Absolute Lymphs (auto) 2.70, Nucleated RBC % 0.2, Differential Comment SCANNED, Diff Path Review May foll, Hypochromasia 1+, Anisocytosis 2+, Microcytosis 1+, Macrocytosis 1+ 07/02/20 08:23: D-Dimer Quant (PE/DVT) 15.16 H* 07/02/20 08:23: Sodium 130 L, Potassium 6.1 H*, Chloride 93 L, Carbon Dioxide 22.0, Anion Gap 15, BUN 69 H, Creatinine 5.59 H, Estim Creat Clear Calc 7.30, Est GFR (MDRD) Af Amer 10 L, Est GFR (MDRD) Non-Af 8 L, BUN/Creatinine Ratio 12.3, Glucose 75, Calcium 7.6 L, Troponin I 0.651 H* 07/02/20 10:30: Blood Type A POSITIVE, Antibody Screen NEGATIVE, Crossmatch See Detail 07/02/20 10:30: Crossmatch See Detail Current Medications Acetaminophen (Acetaminophen 325 Mg Tablet) 650 mg PO Q6H PRN PRN PRN Reason: Pain Score 1-10/Temp > 100.7 F Pantoprazole Sodium 40 mg/ (Sodium Chloride) 110 mls @ 330 mls/hr IV Q12 RUBIO Sodium Chloride (0.9% Saline Lock 10 Ml Syringe) 10 - 40 ml IV UD PRN PRN Reason: SALINE FLUSH Assessment/Plan All Active Problems (Last Reviewed 06/16/20 @ 07:[address] Marc Snow MD) Generalized weakness (Acute) Hyperkalemia (Acute) Symptomatic bradycardia (Acute) Chest pain (Acute) Septic shock (Acute) Pneumonia due to COVID-19 virus (Acute) Healthcare-associated pneumonia (Acute) COVID-19 (Acute) Hypoxia (Acute) Shortness of breath (Acute) Anemia (Acute) Hyponatremia (Acute) 1. Hypovolemic shock secondary to acute blood loss anemia secondary to GI bleed -She received 4 units PRBCs, 1 peripherally and 3 given through dialysis -She also received a 250 cc bolus in the ER as well as a 400 cc bolus during dialysis and blood pressure now stable without any need for pressors -She did have a slight elevation to her troponin though as stated in the HPI, this is not unremarkable given her renal failure, and her baseline troponin is anywhere between 0.3 and 0.5 therefore the rise in her troponin today is likely secondary to demand ischemia from her anemia and bradycardia -We will start her on Protonix IV twice daily and consult general surgery for evaluation and possible EGD 2. CAD/HTN -We will hold her aspirin given her GI bleed -Also will to completely discontinue her metoprolol, on her previous admission she was decreased from 50 mg p.o. twice daily down to 25 mg p.o. twice daily given the fact that she presented to the hospital with a heart rate in the 40s, she is unlikely to be able to tolerate this well at discharge -Once she is stable, will evaluate her blood pressure and adjust her medications as necessary 3. End-stage renal disease -Continue with dialysis which she received today -Appreciate nephrology assistance 4. Rheumatoid arthritis -When she is able to take p.o., can resume DVT: SCDs Inpatient E&M: [id number] Init Hosp L3
[2020-07-02 20:46] LABS: Hematocrit 29.4 % (37-47); Hemoglobin 9.5 g/dL (12.0-15.0)
[2020-07-02] MEDS: Acetaminophen 325 MG Tablet 650 MG PO (21:46)
[2020-07-03] VITALS (25 sets, daily range): BP systolic 89–127; BP diastolic 50–75; PULSE 90–106; RESP 10–24; TEMP 35.8–36.4; O2SAT 92–98
[2020-07-03 04:23] LABS: Absolute Lymphocyte Count 2.83 X10^3/uL (0.83-4.51); Absolute Neutrophil Count 13.5 X10^3/uL (2.0-7.7); Basophil# 0.02 X10^3/uL; Basophil% 0.1 % (0-1); Eosinophil# 0.33 X10^3/uL; Eosinophils% 1.9 % (0-5); Hematocrit 25.8 % (37-47); Hemoglobin 8.8 g/dL (12.0-15.0); Lymphocyte # 2.83 X10^3/ul (4.0); Mean Corp Hgb Conc 34.1 g/dL (32-36); Mean Corpuscular Hgb 30.6 pg (27.0-32.0); Mean Corpuscular Volume 89.6 fL (81-99); Mean Platelet Vol. 10.6 fl (6.2-12.0); Monocyte# 0.85 X10^3/uL; Monocyte% 4.8 % (0-10); NRBC Flagged by Analyzer 0.2 % (0-5); Neutrophil # 13.47 X10^3/uL (2.7-7.7); Platelet Count 274 K/mm3 (150-450); RBC Distribution Width CV 16.3 % (11.6-14.6); RBC Distribution Width SD 52.5 fl (35.1-43.9); Red Blood Count 2.88 M/mm3 (4.2-5.4); White Blood Count 17.7 K/mm3 (4.4-11.0)
[2020-07-03 04:41] LABS: Anion Gap 9 (5-15); BUN 35 mg/dL (7-18); BUN/Creat Ratio 11.1 RATIO (10-20); Chloride 90 mmol/L (98-107); Creatinine, Serum 3.15 mg/dL (0.55-1.02); EST Glomerular Filtration Rate 16 mL/min (>60); Est Glom Filt Rate - Afr Amer 19 mL/min (>60); Estimated Creatinine Clearance 16.89 ml/min; Glucose 88 mg/dL (74-106); Potassium 4.1 mmol/L (3.5-5.1); Sodium Level 129 mmol/L (136-145)
--- NOTE | 2020-07-03 08:34 | CON.PCM_ITS ---
Reason for Consult Date of Consultation: 07/03/20 History of Present Illness: The patient is a 64 year old F Present to the ER due to weakness and blood in stool. Patient states for the past 2 days she has had red blood in her stool in someone's black. Patient states she started to have blood in her stool/diarrhea and some abdominal discomfort all about the same time. Patient states she has had a decreased appetite over the last day. On admit patient's hemoglobin was 4.5. Patient did receive dialysis and 4 units of packed red blood cells currently her hemoglobin is 8.8. Per nursing patient still having bowel movements with some maroon stool. Patient hemoglobin systolically is low 100s. Patient was previously positive for Covid last month current repeat antigen test was negative. Patient has a history of C. difficile about 4 years ago patient states she is never had a colonoscopy denies any family history of colon cancer. Patient's C. difficile antigen was positive, toxin negative and PCR positive. Past Medical History Past Medical History (Chronic Problems): Chronic Problems (Last Reviewed 06/16/20 @ 07:[address] Marc Snow MD) ESRD (end stage renal disease) on dialysis (Chronic) Chronic renal failure (Chronic) NSTEMI (non-ST elevated myocardial infarction) (Chronic) Dialysis patient (Chronic) Elevated troponin (Chronic) Congestive heart failure (Chronic) Rheumatoid arthritis (Chronic) Amyloidosis (Chronic) CKD (chronic kidney disease) stage 4, GFR 15-29 ml/min (Chronic) Renal anasarca (Chronic) Medical History: Medical History (Last Reviewed 06/16/20 @ 07:[address] Marc Snow MD) NSTEMI (non-ST elevated myocardial infarction) (Chronic) I21.4 Dialysis patient (Chronic) Z99.2 Acute kidney injury superimposed on CKD (Inactive) N17.9, N18.9 Elevated troponin (Chronic) R79.89 Congestive heart failure (Chronic) I50.9 Rheumatoid arthritis (Chronic) M06.9 Amyloidosis (Chronic) E85.9 CKD (chronic kidney disease) stage 4, GFR 15-29 ml/min (Chronic) N18.4 Renal anasarca (Chronic) N04.9 Hyponatremia (Acute) E87.1 Allergies No Known Allergies Allergy (Verified 06/23/20 10:05) Home Medications: Ambulatory Orders Medication Instructions Recorded Sevelamer Carbonate 240 mg PO TIDCM 10/29/19 Acetaminophen [Tylenol Tablet] 650 mg PO Q6H PRN PRN #30 tab 10/31/19 Alprazolam [Xanax] 1 mg PO TID PRN PRN 06/23/20 Fluticasone 0.05% [Flonase Nasal 2 spray NASAL DAILY 06/23/20 [place]] Prednisone 2.5 mg PO 1200 06/23/20 Aspirin [Aspirin, Baby] 81 mg PO DAILY@0800 #0 07/05/20 Metoprolol(XL)Succ [Toprol Xl 25 mg PO DAILY #0 07/05/20 (Beta Azra)] Pantoprazole Sodium [Protonix] 40 mg PO DAILY #30 tab 07/05/20 Vancomcyin 125mg/5mL PO Liquid 125 mg PO Q6 #32 po.syringe 07/05/20 Surgical History: - - Left forearm AV fistula Psychiatric History: Anxiety, Depression PROFESSOR OF MEDICINE History: No pertinent PROFESSOR OF MEDICINE history Smoking Status: Never smoker Alcohol: None Drugs: None - *Family History Maternal History Items: - - Denies known maternal medical history including cardiac history. Paternal History Items: Diabetes, - Review of Systems Constitutional: Reports: Anorexia Eyes: Denies: Blurred vision HEENT: Denies: Difficulty Swallowing Cardiovascular: Denies: Chest Pain Respiratory: Denies: Shortness of Breath Gastrointestinal: Reports: Abdominal Pain, Diarrhea, Hematochezia. Denies: Hematemesis, Nausea Genitourinary: Denies: Dysuria Psychiatric: Denies: Depression Hematologic/ Lymphatic: Reports: Anemia Patient Problems: Active and Suspected Problems (Last Reviewed 06/16/20 @ 07:[address] Marc Snow MD) Generalized weakness (Acute) Anemia (Acute) - Physical Exam Vitals/I&O's: Vital Signs Temp Pulse Resp BP Pulse Ox 96.5 F L 95 13 89/55 L 97 07/03/20 04:00 07/03/20 06:00 07/03/20 06:00 07/03/20 06:00 07/03/20 06:00 Oxygen Flow Rate (L/min) 1 Oxygen Delivery Method Room Air Weight: 189 lb 9.561 oz Body Mass Index (BMI) 30.5 Finger Stick Blood Glucose 143 Intake and Output for Last 24 Hours 07/01/20 07/02/20 07/03/20 23:59 23:59 23:59 Intake Total 2200 / 2200 Output Total 1500 / 1500 0 / 0 Balance 700 / 700 0 / 0 General: Alert, Oriented x3, Cooperative, No apparent distress HEENT: Atraumatic Lungs: Normal air movement Cardiovascular: Regular rate Abdomen: Soft, Non Tender, Non-Distended Extremities: - - Left distal forearm fistula no thrill Neurological: Cranial nerves II-XII grossly intact Psych/Mental Status: Normal Affect Microbiology Past 72 Hours 07/02/20 22:05 Stool Stool Lactoferrin - Final 07/02/20 22:05 Stool C. difficile GDH Antigen & Toxins - Final 07/02/20 22:05 Stool C. difficile DNA Amplification - Final 07/02/20 20:30 Mucosa - Nasopharyngeal SARS-CoV-2 Antigen (Rapid) - Final Laboratory Results 07/02/20 08:23: WBC 27.9 H, RBC 1.53 L, Hgb 4.5 L*, Hct 15.3 L, MCV 100.0 H, MCH 29.4, MCHC 29.4 L, RDW Std Deviation 68.1 H, RDW Coeff of Mika 19.0 H, Plt Count 304, MPV 11.2, Immature Gran % (Auto) 3.700 H, Neut % (Auto) 80.6 H, Lymph % (Auto) 9.7 L, [place] % (Auto) 5.8, Eos % (Auto) 0.1, Baso % (Auto) 0.1, Absolute Neuts (auto) 22.5 H, Absolute Lymphs (auto) 2.70, Nucleated RBC % 0.2, Differential Comment SCANNED, Diff Path Review May foll, Hypochromasia 1+, Anisocytosis 2+, Microcytosis 1+, Macrocytosis 1+ 07/02/20 08:23: D-Dimer Quant (PE/DVT) 15.16 H* 07/02/20 08:23: Sodium 130 L, Potassium 6.1 H*, Chloride 93 L, Carbon Dioxide 22.0, Anion Gap 15, BUN 69 H, Creatinine 5.59 H, Estim Creat Clear Calc 7.30, Est GFR (MDRD) Af Amer 10 L, Est GFR (MDRD) Non-Af 8 L, BUN/Creatinine Ratio 12.3, Glucose 75, Calcium 7.6 L, Troponin I 0.651 H* 07/02/20 10:30: Blood Type A POSITIVE, Antibody Screen NEGATIVE, Crossmatch See Detail 07/02/20 10:30: Crossmatch See Detail 07/02/20 20:30: Hgb 9.5 L, Hct 29.4 L 07/03/20 04:10: WBC 17.7 H, RBC 2.88 L, Hgb 8.8 L, Hct 25.8 L, MCV 89.6 D, MCH 30.6, MCHC 34.1 D, RDW Std Deviation 52.5 H, RDW Coeff of Mika 16.3 H, Plt Count 274, MPV 10.6, Immature Gran % (Auto) 1.200 H, Neut % (Auto) 76.0 H, Lymph % (Auto) 16.0 L, [place] % (Auto) 4.8, Eos % (Auto) 1.9, Baso % (Auto) 0.1, Absolute Neuts (auto) 13.5 H, Absolute Lymphs (auto) 2.83, Nucleated RBC % 0.2 07/03/20 04:10: Sodium 129 L, Potassium 4.1, Chloride 90 L, Carbon Dioxide 30.0, Anion Gap 9, BUN 35 H, Creatinine 3.15 H, Estim Creat Clear Calc 16.89, Est GFR (MDRD) Af Amer 19 L, Est GFR (MDRD) Non-Af 16 L, BUN/Creatinine Ratio 11.1, Glucose 88, Calcium 7.0 L Current Medications Acetaminophen (Acetaminophen 325 Mg Tablet) 650 mg PO Q6H PRN PRN PRN Reason: Pain Score 1-10/Temp > 100.7 F Last Admin: 07/02/20 21:46 Dose: 650 mg Documented by: Pantoprazole Sodium 40 mg/ (Sodium Chloride) 110 mls @ 330 mls/hr IV Q12 RUBIO Last Infusion: 07/02/20 22:04 Dose: Infused Documented by: Sodium Chloride (0.9% Saline Lock 10 Ml Syringe) 10 - 40 ml IV UD PRN PRN Reason: SALINE FLUSH Vancomycin HCl (Vancomcyin 125 Mg/5 Ml Susp Po.Syringe) 125 mg PO Q6 [facility] Assessment/Plan All Active Problems (Last Reviewed 06/16/20 @ 07:[address] Marc Snow MD) Generalized weakness (Acute) Hyperkalemia (Acute) Symptomatic bradycardia (Acute) Chest pain (Acute) Septic shock (Acute) Pneumonia due to COVID-19 virus (Acute) Healthcare-associated pneumonia (Acute) COVID-19 (Acute) Hypoxia (Acute) Shortness of breath (Acute) Anemia (Acute) Hyponatremia (Acute) 64 y/o F with GI bleed, C.diff, Recent Covid currently negative on antigen test 1. Patient's vital signs currently stable patient did get 4 units packed red blood cells went from hemoglobin of 4.5-8.8. Patient is currently on Protonix 40 mg IV twice daily. Patient stools are currently maroon she states they were red/black. Patient states she was on a blood thinner after being at [facility] however she is unsure what type said she took it once a day and did stop it when she saw the blood. We will try to get records from [facility] to find out what medication this was. Patient's C. difficile is also positive on PCR and antigen negative on toxin. Patient has a history of C. difficile. Patient also has a leukocytosis currently she is getting treated for her C. difficile by Dr. Smith. Since patient's hemoglobin responded appropriately to packed red blood cells will hold off on endoscopy as an inpatient unless she continues to bleed. Will have patient follow-up in outpatient for an EGD and colonoscopy. Dr. Fletcher will be covering for the weekend. Mayra Goodman M.D. Pager: [phone] [facility] [address] [place] [address], Outpatient [place], [address] [place] [address] Office: [phone] Inpatient E&M: [id number] Init Hosp L2
[2020-07-03] MEDS: Acetaminophen 325 MG Tablet 650 MG PO ×3 (08:47→23:27)
--- NOTE | 2020-07-03 09:56 | CON.PCM_ITS ---
Consultation - Renal 07/03/20 PCP/ Referring MD: Requesting physician: Jabier Smith MD Primary care physician: Dr. Jabier Arboleda DO Reason for Consultation:: ESRD - History of Present Illness History of Present Illness: The patient is a 64 year old F with ESRD is admitted with weakness. She was subsequently found to have Hgb of 4.5 on admit. The pt is also being treated for C diff infection. The pt usually dialyzes on TTS schedule at [facility]. The pt was given 4 units of PRBC yesterday. The pt denies CP, SOB, nausea or LE edema. She complains of R arm pain which she attributes to RA (she has seen coroner/medical examiner in [place] before in the past). She feels better overall. The pt did have diarrhea prior to admission. However, there is no diarrhea today thus far. - Allergies Allergies: Allergies No Known Allergies Allergy (Verified 06/23/20 10:05) - Current Medications Current Medications: Current Medications Acetaminophen (Acetaminophen 325 Mg Tablet) 650 mg PO Q6H PRN PRN PRN Reason: Pain Score 1-10/Temp > 100.7 F Last Admin: 07/03/20 08:47 Dose: 650 mg Documented by: Pantoprazole Sodium 40 mg/ (Sodium Chloride) 110 mls @ 330 mls/hr IV Q12 [facility] Last Infusion: 07/02/20 22:04 Dose: Infused Documented by: Sodium Chloride (0.9% Saline Lock 10 Ml Syringe) 10 - 40 ml IV UD PRN PRN Reason: SALINE FLUSH Vancomycin HCl (Vancomcyin 125 Mg/5 Ml Susp Po.Syringe) 125 mg PO Q6 [facility]BIO Last Admin: 07/03/20 08:48 Dose: 125 mg Documented by: - Past Medical History Past Medical History (Chronic Problems): Chronic Problems (Last Reviewed 06/16/20 @ 07:[address] Marc Snow MD) ESRD (end stage renal disease) on dialysis (Chronic) Chronic renal failure (Chronic) NSTEMI (non-ST elevated myocardial infarction) (Chronic) Dialysis patient (Chronic) Elevated troponin (Chronic) Congestive heart failure (Chronic) Rheumatoid arthritis (Chronic) Amyloidosis (Chronic) CKD (chronic kidney disease) stage 4, GFR 15-29 ml/min (Chronic) Renal anasarca (Chronic) - Past Surgical History Surgical History: - - Left forearm AV fistula - Social History Smoking Status: Never smoker Alcohol: None Drugs: None - Family History Maternal History Items: - - Denies known maternal medical history including cardiac history. Paternal History Items: Diabetes, - Review of Systems Constitutional: Reports: Malaise, Weakness. Denies: Anorexia, Chills, Fever Eyes: Denies: Blurred vision, Pain, Redness HEENT: Denies: Difficulty Hearing, Difficulty Swallowing, Dysphasia, Head Aches, Sinus Drainage Cardiovascular: Denies: Chest Pain, Chest Pressure, Edema, Orthopnea, Palpitations, Paroxysmal Noc. Dyspnea Respiratory: Reports: Shortness of breath upon exertion. Denies: Cough, Hemoptysis Gastrointestinal: Reports: Diarrhea, Hematochezia. Denies: Abdominal Pain, Constipation, Hematemesis, Vomiting Genitourinary: Denies: Dysuria, Frequency, Hematuria Musculoskeletal: Reports: Joint Pain, Joint Tenderness Skin: Denies: Rash, Wounds Neurological: Denies: Numbness, Tingling, Focal weakness Psychiatric: Denies: Anxiety, Depression, Homicidal Ideations, Suicidal Ideations Hematologic/ Lymphatic: Denies: Easy Bruising, Easy Bleeding Patient Problems: Active and Suspected Problems (Last Reviewed 06/16/20 @ 07:[address] Marc Snow MD) Generalized weakness (Acute) Anemia (Acute) - Physical Exam Vitals/I&O's: Vital Signs Temp Pulse Resp BP Pulse Ox 96.5 F L 95 13 89/55 L 97 07/03/20 04:00 07/03/20 06:00 07/03/20 06:00 07/03/20 06:00 07/03/20 06:00 Oxygen Flow Rate (L/min) 1 Oxygen Delivery Method Room Air Weight: 86 kg Body Mass Index (BMI) 30.5 Finger Stick Blood Glucose 143 Intake and Output for Last 24 Hours 07/01/20 07/02/20 07/03/20 23:59 23:59 23:59 Intake Total 2200 / 2200 Output Total 1500 / 1500 0 / 0 Balance 700 / 700 0 / 0 Microbiology Past 72 Hours 07/02/20 22:05 Stool Stool Lactoferrin - Final 07/02/20 22:05 Stool C. difficile GDH Antigen & Toxins - Final 07/02/20 22:05 Stool C. difficile DNA Amplification - Final 07/02/20 20:30 Mucosa - Nasopharyngeal SARS-CoV-2 Antigen (Rapid) - Final Laboratory Results 07/02/20 10:30: Blood Type A POSITIVE, Antibody Screen NEGATIVE, Crossmatch See Detail 07/02/20 10:30: Crossmatch See Detail 07/02/20 20:30: Hgb 9.5 L, Hct 29.4 L 07/03/20 04:10: WBC 17.7 H, RBC 2.88 L, Hgb 8.8 L, Hct 25.8 L, MCV 89.6 D, MCH 30.6, MCHC 34.1 D, RDW Std Deviation 52.5 H, RDW Coeff of Mika 16.3 H, Plt Count 274, MPV 10.6, Immature Gran % (Auto) 1.200 H, Neut % (Auto) 76.0 H, Lymph % (Auto) 16.0 L, [place] % (Auto) 4.8, Eos % (Auto) 1.9, Baso % (Auto) 0.1, Absolute Neuts (auto) 13.5 H, Absolute Lymphs (auto) 2.83, Nucleated RBC % 0.2 07/03/20 04:10: Sodium 129 L, Potassium 4.1, Chloride 90 L, Carbon Dioxide 30.0, Anion Gap 9, BUN 35 H, Creatinine 3.15 H, Estim Creat Clear Calc 16.89, Est GFR (MDRD) Af Amer 19 L, Est GFR (MDRD) Non-Af 16 L, BUN/Creatinine Ratio 11.1, Glucose 88, Calcium 7.0 L Current Medications Acetaminophen (Acetaminophen 325 Mg Tablet) 650 mg PO Q6H PRN PRN PRN Reason: Pain Score 1-10/Temp > 100.7 F Last Admin: 07/03/20 08:47 Dose: 650 mg Documented by: Pantoprazole Sodium 40 mg/ (Sodium Chloride) 110 mls @ 330 mls/hr IV Q12 [facility] Last Infusion: 07/02/20 22:04 Dose: Infused Documented by: Sodium Chloride (0.9% Saline Lock 10 Ml Syringe) 10 - 40 ml IV UD PRN PRN Reason: SALINE FLUSH Vancomycin HCl (Vancomcyin 125 Mg/5 Ml Susp Po.Syringe) 125 mg PO Q6 [facility] Last Admin: 07/03/20 08:48 Dose: 125 mg Documented by: Assessment/Plan All Active Problems (Last Reviewed 06/16/20 @ 07:[address] Marc Snow MD) Generalized weakness (Acute) Hyperkalemia (Acute) Symptomatic bradycardia (Acute) Chest pain (Acute) Septic shock (Acute) Pneumonia due to COVID-19 virus (Acute) Healthcare-associated pneumonia (Acute) COVID-19 (Acute) Hypoxia (Acute) Shortness of breath (Acute) Anemia (Acute) Hyponatremia (Acute) 1. ESRD. HD on MWF. Pt was dialyzed yesterday. There is no signs of volume overload despite 4 units of PRBC and no UF yesterday. Hyperkalemia has resolved. No need for HD today. Will plan on HD tomorrow. 2. Anemia. Pt has underlying anemia of CKD as well as probable acute blood loss from GI bleed. On PPI. Surgery has seen the pt. No plans for endoscopy at this time. Will continue TAMMY with HD. 3. Hyponatremia. Na is 129 which is stable. She is asymptomatic. Hyponatremia is due to ESRD. Recheck Na in am. Dialysis should keep HD stable. 4. C diff colitis. On oral vancomycin. Management as per hospitalist. 5. Recent COVID infection. Negative test yesterday. Pt can return to her usual dialysis unit after discharge if she has another negative test. Will discuss with Dr. Smith if we can check another test tomorrow.
--- NOTE | 2020-07-03 10:23 | PCM.PN.HOSP ---
Patient Problems: Active and Suspected Problems (Last Reviewed 06/16/20 @ 07:[address] Marc Snow MD) Generalized weakness (Acute) Anemia (Acute) Subjective: Feels much better today. Better, her diarrhea has improved Vitals/I&O's: Vital Signs Temp Pulse Resp BP Pulse Ox 96.5 F L 95 13 89/55 L 97 07/03/20 04:00 07/03/20 06:00 07/03/20 06:00 07/03/20 06:00 07/03/20 06:00 Oxygen Flow Rate (L/min) 1 Oxygen Delivery Method Room Air Weight: 189 lb 9.561 oz Body Mass Index (BMI) 30.5 Finger Stick Blood Glucose 143 Intake and Output for Last 24 Hours 07/01/20 07/02/20 07/03/20 23:59 23:59 23:59 Intake Total 2200 / 2200 Output Total 1500 / 1500 0 / 0 Balance 700 / 700 0 / 0 General: Alert, Oriented x3, Cooperative, No apparent distress HEENT: Atraumatic, PERRLA, EOMI, Normocephalic Oral: Dry Mucosa Neck: Supple, No JVD Lungs: Clear to auscultation, Normal air movement, No rhonchi, No wheeze, No rales Cardiovascular: Regular rate and rhythm, Normal S1, Normal S2, No murmurs Abdomen: Soft, Non Tender, Non-Distended, No Hepato-splenomegaly Extremities: No edema, Capillary Refill Less than 3 Seconds Skin: No rashes, No breakdown Neurological: Neuro grossly intact, Sensory exam intact to light touch and pain Psych/Mental Status: Normal Affect, Appropriate Microbiology Past 72 Hours 07/02/20 22:05 Stool Stool Lactoferrin - Final 07/02/20 22:05 Stool C. difficile GDH Antigen & Toxins - Final 07/02/20 22:05 Stool C. difficile DNA Amplification - Final 07/02/20 20:30 Mucosa - Nasopharyngeal SARS-CoV-2 Antigen (Rapid) - Final Laboratory Results 07/02/20 10:30: Blood Type A POSITIVE, Antibody Screen NEGATIVE, Crossmatch See Detail 07/02/20 10:30: Crossmatch See Detail 07/02/20 20:30: Hgb 9.5 L, Hct 29.4 L 07/03/20 04:10: WBC 17.7 H, RBC 2.88 L, Hgb 8.8 L, Hct 25.8 L, MCV 89.6 D, MCH 30.6, MCHC 34.1 D, RDW Std Deviation 52.5 H, RDW Coeff of Mika 16.3 H, Plt Count 274, MPV 10.6, Immature Gran % (Auto) 1.200 H, Neut % (Auto) 76.0 H, Lymph % (Auto) 16.0 L, [place] % (Auto) 4.8, Eos % (Auto) 1.9, Baso % (Auto) 0.1, Absolute Neuts (auto) 13.5 H, Absolute Lymphs (auto) 2.83, Nucleated RBC % 0.2 07/03/20 04:10: Sodium 129 L, Potassium 4.1, Chloride 90 L, Carbon Dioxide 30.0, Anion Gap 9, BUN 35 H, Creatinine 3.15 H, Estim Creat Clear Calc 16.89, Est GFR (MDRD) Af Amer 19 L, Est GFR (MDRD) Non-Af 16 L, BUN/Creatinine Ratio 11.1, Glucose 88, Calcium 7.0 L Current Medications Acetaminophen (Acetaminophen 325 Mg Tablet) 650 mg PO Q6H PRN PRN PRN Reason: Pain Score 1-10/Temp > 100.7 F Last Admin: 07/03/20 08:47 Dose: 650 mg Documented by: Pantoprazole Sodium 40 mg/ (Sodium Chloride) 110 mls @ 330 mls/hr IV Q12 [facility] Last Infusion: 07/02/20 22:04 Dose: Infused Documented by: Sodium Chloride (0.9% Saline Lock 10 Ml Syringe) 10 - 40 ml IV UD PRN PRN Reason: SALINE FLUSH Vancomycin HCl (Vancomcyin 125 Mg/5 Ml Susp Po.Syringe) 125 mg PO Q6 [facility]BIO Last Admin: 07/03/20 08:48 Dose: 125 mg Documented by: Medical Necessity - Tobacco Use Smoking Status: Never smoker Assessment/Plan All Active Problems (Last Reviewed 06/16/20 @ 07:[address] Marc Snow MD) Generalized weakness (Acute) Hyperkalemia (Acute) Symptomatic bradycardia (Acute) Chest pain (Acute) Septic shock (Acute) Pneumonia due to COVID-19 virus (Acute) Healthcare-associated pneumonia (Acute) COVID-19 (Acute) Hypoxia (Acute) Shortness of breath (Acute) Anemia (Acute) Hyponatremia (Acute) 1. Hypovolemic shock secondary to acute blood loss anemia secondary to GI bleed/diarrhea -She received 4 units PRBCs, 1 peripherally and 3 given through dialysis -She also received a 250 cc bolus in the ER as well as a 400 cc bolus during dialysis and blood pressure now stable without any need for pressors -She did have a slight elevation to her troponin though as stated in the HPI, this is not unremarkable given her renal failure, and her baseline troponin is anywhere between 0.3 and 0.5 therefore the rise in her troponin today is likely secondary to demand ischemia from her anemia and bradycardia -C. difficile test positive for antigen and DNA but negative for toxin however given the GI bleed and the white count of 17 today, will initiate treatment with p.o. vancomycin -Hemoglobin improved from 4.5 initially to 9.5 and is down to 8.8 today we will recheck in the morning. If hemoglobin is stable then can push scopes to the outpatient setting 2. CAD/HTN -We will hold her aspirin given her GI bleed -Also will to completely discontinue her metoprolol, on her previous admission she was decreased from 50 mg p.o. twice daily down to 25 mg p.o. twice daily given the fact that she presented to the hospital with a heart rate in the 40s, she is unlikely to be able to tolerate this well at discharge -Once she is stable, will evaluate her blood pressure and adjust her medications as necessary 3. End-stage renal disease -Continue with dialysis which she received today -Appreciate nephrology assistance 4. Rheumatoid arthritis -When she is able to take p.o., can resume DVT: SCDs Inpatient E&M: [id number] Subs Hosp L2
[2020-07-03] MEDS: predniSONE 5 MG Tablet 2.5 MG PO (12:11)
[2020-07-03 13:47] LABS: Pathologist Review Reviewed
[2020-07-03 14:59] LABS: Probe Check PASS; Specimen Processing Control PASS
--- NOTE | 2020-07-03 15:23 | NURSING ---
First COVID test 07/02 resulted negative. Second COVID test resulted positive on 07/03, per Roshni Voss (infectious disease), OK to keep out of COVID isolation. Patient was first positive on 06/15.
[2020-07-03] MEDS: 0.9% Saline Lock 10 ML Syringe IV ×2 (17:09→23:28)
--- NOTE | 2020-07-03 17:43 | CASEMGMT ---
BELKYS COTTRELL Readmission Note: Pt with visit 06/15 thru 06/16/2020 for COVID pneumonia, hyperkalemia, bradycardia and with chronic conditions including ESRD, Rheumatoid arthritis, HTN, CAD, and anxiety. Pt discharged to home with HD arranged for [facility] in [place] until COVID resolved. Pt returned and was admitted 06/23 thru 06/25/2020 due to fluid overload related to ESRD and a/c diastolic CHF. Pt also noted to be in hemodynamic shock secondary to beta-blockers. Pt with chronic conditions also including amyloidosis and anemia of ch renal disease. Pt was transferred to tertiary care ([facility]) for treatment of her clotted off HD fistula. Pt presented and was readmitted on 07/02/2020 with hypovolemic shock secondary to acute blood loss anemia secondary to GI bleed. Pt's Hgb 4.5 on presentation for which she has received tx with PRBC. No scopes planned on this admission at this time. It was noted that pt had been started on anticoagulation s/p dc from [facility]. Also concerns for Cdiff for which pt has been started on tx. HD schedule: Has been going to [facility] in [place] [facility] due to COVID positive status. Had one neg COVID test on 07/02 but had a positive on 07/03. Needs two negatives to return to [place] per Dr. Mccullough's consultation note. Phone call placed to pt's room for assessment of current status and needs. Pt states she has remained independent at home with ADLS however she is unable to complete household tasks. Pt's states her daughter assists her around the home. Pt states her is still active, works and has not become ill. They hire a river driver for transportation to HD and appointments. Pt denies any current DME or any further needs at discharge. Pt plans to discharge to home when medically ready. Will continue to monitor pt for further discharge planning needs that may arise. Lv Blanco RN CM
[2020-07-03 20:03] LABS: Hematocrit 27.1 % (37-47)
[2020-07-03] MEDS: Ensure Clear 120 ML Liquid PO (22:55)
[2020-07-04] VITALS (22 sets, daily range): BP systolic 88–141; BP diastolic 40–83; PULSE 82–118; RESP 12–28; TEMP 36.1–36.9; O2SAT 94–99
[2020-07-04 05:53] LABS: Absolute Neutrophil Count 15.1 X10^3/uL (2.0-7.7); Basophil# 0.01 X10^3/uL; Basophil% 0.1 % (0-1); Eosinophil# 0.33 X10^3/uL; Eosinophils% 1.7 % (0-5); Hematocrit 25.4 % (37-47); Hemoglobin 8.2 g/dL (12.0-15.0); Lymphocyte % 13.1 % (19-41); Mean Corp Hgb Conc 32.3 g/dL (32-36); Mean Corpuscular Hgb 29.7 pg (27.0-32.0); Monocyte# 0.95 X10^3/uL; NRBC Flagged by Analyzer 0.2 % (0-5); Neutrophil # 15.12 X10^3/uL (2.7-7.7); Neutrophil % 79.1 % (47-70); Platelet Count 347 K/mm3 (150-450); RBC Distribution Width CV 16.6 % (11.6-14.6); RBC Distribution Width SD 54.9 fl (35.1-43.9); Red Blood Count 2.76 M/mm3 (4.2-5.4); White Blood Count 19.1 K/mm3 (4.4-11.0)
[2020-07-04 06:12] LABS: Albumin, Serum 1.6 g/dL (3.2-5.0); BUN 54 mg/dL (7-18); BUN/Creat Ratio 11.9 RATIO (10-20); Calcium,Total 7.2 mg/dL (8.5-10.1); Chloride 89 mmol/L (98-107); Creatinine, Serum 4.54 mg/dL (0.55-1.02); EST Glomerular Filtration Rate 10 mL/min (>60); Est Glom Filt Rate - Afr Amer 13 mL/min (>60); Estimated Creatinine Clearance 11.72 ml/min; Glucose 92 mg/dL (74-106); Phosphorus 5.7 mg/dL (2.5-4.9); Potassium 4.7 mmol/L (3.5-5.1); Sodium Level 126 mmol/L (136-145)
--- NOTE | 2020-07-04 08:12 | PCM.PN.SRG ---
Patient Problems: Active and Suspected Problems (Last Reviewed 06/16/20 @ 07:[address] Marc Snow MD) Generalized weakness (Acute) Anemia (Acute) Subjective: No bleeding overnight - Physical Exam Vitals/I&O's: Vital Signs Temp Pulse Resp BP Pulse Ox 98 F 83 28 H 125/55 H 97 07/04/20 00:00 07/04/20 07:00 07/04/20 07:00 07/04/20 07:00 07/04/20 07:00 Oxygen Flow Rate (L/min) 1 Oxygen Delivery Method Room Air Weight: 189 lb 9.561 oz Body Mass Index (BMI) 30.5 Finger Stick Blood Glucose 143 Intake and Output for Last 24 Hours 07/02/20 07/03/20 07/04/20 23:59 23:59 23:59 Intake Total 2200 / 2200 370 / 470 200 / 200 Output Total 1500 / 1500 0 / 0 Balance 700 / 700 370 / 470 200 / 200 General: Alert, Cooperative Abdomen: Soft, Non Tender, Non-Distended Microbiology Past 72 Hours 07/02/20 22:05 Stool Stool Lactoferrin - Final 07/02/20 22:05 Stool Enteric Bacteriology - Final 07/02/20 22:05 Stool C. difficile GDH Antigen & Toxins - Final 07/02/20 22:05 Stool C. difficile DNA Amplification - Final 07/02/20 20:30 Mucosa - Nasopharyngeal SARS-CoV-2 Antigen (Rapid) - Final Laboratory Results 07/02/20 08:23: Diff Path Review Reviewed 07/02/20 10:30: Crossmatch See Detail 07/03/20 12:58: COVID-19 ([facility]) Positive 07/03/20 19:52: Hgb 9.0 L, Hct 27.1 L 07/04/20 05:45: WBC 19.1 H, RBC 2.76 L, Hgb 8.2 L, Hct 25.4 L, MCV 92.0, MCH 29.7, MCHC 32.3 D, RDW Std Deviation 54.9 H, RDW Coeff of Mika 16.6 H, Plt Count 347, MPV 10.0, Immature Gran % (Auto) 1.000 H, Neut % (Auto) 79.1 H, Lymph % (Auto) 13.1 L, [place] % (Auto) 5.0, Eos % (Auto) 1.7, Baso % (Auto) 0.1, Absolute Neuts (auto) 15.1 H, Absolute Lymphs (auto) 2.50, Nucleated RBC % 0.2 07/04/20 05:45: Sodium 126 L, Potassium 4.7, Chloride 89 L, Carbon Dioxide 28.0, BUN 54 H, Creatinine 4.54 H, Estim Creat Clear Calc 11.72, Est GFR (MDRD) Af Amer 13 L, Est GFR (MDRD) Non-Af 10 L, BUN/Creatinine Ratio 11.9, Glucose 92, Calcium 7.2 L, Phosphorus 5.7 H, Albumin 1.6 L Current Medications Acetaminophen (Acetaminophen 325 Mg Tablet) 650 mg PO Q6H PRN PRN PRN Reason: Pain Score 1-10/Temp > 100.7 F Last Admin: 07/03/20 23:27 Dose: 650 mg Documented by: Pantoprazole Sodium 40 mg/ (Sodium Chloride) 110 mls @ 330 mls/hr IV Q12 [facility] Last Infusion: 07/03/20 23:15 Dose: Infused Documented by: Nutritional Formula (Lactose Free) (Ensure Clear 120 Ml Liquid) 120 ml PO 4X/DAY [facility] Last Admin: 07/03/20 22:55 Dose: 120 ml Documented by: Prednisone (Prednisone 5 Mg Tablet) 2.5 mg PO DAILY@1200 [facility] Last Admin: 07/03/20 12:11 Dose: 2.5 mg Documented by: Sodium Chloride (0.9% Saline Lock 10 Ml Syringe) 10 - 40 ml IV UD PRN PRN Reason: SALINE FLUSH Last Admin: 07/03/20 23:28 Dose: 10 ml Documented by: Vancomycin HCl (Vancomcyin 125 Mg/5 Ml Susp Po.Syringe) 125 mg PO Q6 [facility] Last Admin: 07/03/20 22:43 Dose: 125 mg Documented by: Medical Necessity - Tobacco Use Smoking Status: Never smoker Assessment/Plan All Active Problems (Last Reviewed 06/16/20 @ 07:[address] Marc Snow MD) Generalized weakness (Acute) Hyperkalemia (Acute) Symptomatic bradycardia (Acute) Chest pain (Acute) Septic shock (Acute) Pneumonia due to COVID-19 virus (Acute) Healthcare-associated pneumonia (Acute) COVID-19 (Acute) Hypoxia (Acute) Shortness of breath (Acute) Anemia (Acute) Hyponatremia (Acute) 64-year-old female with anemia and possible GI bleed 1. Patient's hemoglobin is stable and showed no bleeding overnight. Per Dr. Goodman the patient will be scoped as an outpatient. Mamadou Fletcher MD Pager: [facility] [address] [place] [address], [address] [place] [phone] Office:
[2020-07-04] MEDS: predniSONE 5 MG Tablet 2.5 MG PO (08:57)
[2020-07-04] MEDS: Ensure Clear 120 ML Liquid PO (08:58)
--- NOTE | 2020-07-04 11:56 | PCM.PN.HOSP ---
Patient Problems: Active and Suspected Problems (Last Reviewed 06/16/20 @ 07:[address] Marc Snow MD) Generalized weakness (Acute) Anemia (Acute) Subjective: Doing well, hungry. No further bowel movements. Hemoglobin stable at 8.2 Vitals/I&O's: Vital Signs Temp Pulse Resp BP Pulse Ox 98 F 87 28 H 125/55 H 97 07/04/20 00:00 07/04/20 07:00 07/04/20 07:00 07/04/20 07:00 07/04/20 07:00 Oxygen Flow Rate (L/min) 1 Oxygen Delivery Method Room Air Weight: 189 lb 9.561 oz Body Mass Index (BMI) 30.5 Finger Stick Blood Glucose 143 Intake and Output for Last 24 Hours 07/02/20 07/03/20 07/04/20 23:59 23:59 23:59 Intake Total 2200 / 2200 370 / 470 720 / 720 Output Total 1500 / 1500 0 / 0 Balance 700 / 700 370 / 470 720 / 720 General: Alert, Oriented x3, Cooperative, No apparent distress HEENT: Atraumatic, PERRLA, EOMI, Normocephalic Oral: Dry Mucosa Neck: Supple, No JVD Lungs: Clear to auscultation, Normal air movement, No rhonchi, No wheeze, No rales Cardiovascular: Regular rate and rhythm, Normal S1, Normal S2, No murmurs Abdomen: Soft, Non Tender, Non-Distended, No Hepato-splenomegaly Extremities: No edema, Capillary Refill Less than 3 Seconds Skin: No rashes, No breakdown Neurological: Neuro grossly intact, Sensory exam intact to light touch and pain Psych/Mental Status: Normal Affect, Appropriate Microbiology Past 72 Hours 07/02/20 22:05 Stool Stool Lactoferrin - Final 07/02/20 22:05 Stool Enteric Bacteriology - Final 07/02/20 22:05 Stool C. difficile GDH Antigen & Toxins - Final 07/02/20 22:05 Stool C. difficile DNA Amplification - Final 07/02/20 20:30 Mucosa - Nasopharyngeal SARS-CoV-2 Antigen (Rapid) - Final Laboratory Results 07/02/20 08:23: Diff Path Review Reviewed 07/02/20 10:30: Crossmatch See Detail 07/03/20 12:58: COVID-19 ([facility]) Positive 07/03/20 19:52: Hgb 9.0 L, Hct 27.1 L 07/04/20 05:45: WBC 19.1 H, RBC 2.76 L, Hgb 8.2 L, Hct 25.4 L, MCV 92.0, MCH 29.7, MCHC 32.3 D, RDW Std Deviation 54.9 H, RDW Coeff of Mika 16.6 H, Plt Count 347, MPV 10.0, Immature Gran % (Auto) 1.000 H, Neut % (Auto) 79.1 H, Lymph % (Auto) 13.1 L, [place] % (Auto) 5.0, Eos % (Auto) 1.7, Baso % (Auto) 0.1, Absolute Neuts (auto) 15.1 H, Absolute Lymphs (auto) 2.50, Nucleated RBC % 0.2 07/04/20 05:45: Sodium 126 L, Potassium 4.7, Chloride 89 L, Carbon Dioxide 28.0, BUN 54 H, Creatinine 4.54 H, Estim Creat Clear Calc 11.72, Est GFR (MDRD) Af Amer 13 L, Est GFR (MDRD) Non-Af 10 L, BUN/Creatinine Ratio 11.9, Glucose 92, Calcium 7.2 L, Phosphorus 5.7 H, Albumin 1.6 L Current Medications Acetaminophen (Acetaminophen 325 Mg Tablet) 650 mg PO Q6H PRN PRN PRN Reason: Pain Score 1-10/Temp > 100.7 F Last Admin: 07/03/20 23:27 Dose: 650 mg Documented by: Pantoprazole Sodium 40 mg/ (Sodium Chloride) 110 mls @ 330 mls/hr IV Q12 [facility] Last Admin: 07/04/20 08:58 Dose: 330 mls/hr Documented by: Prednisone (Prednisone 5 Mg Tablet) 2.5 mg PO DAILY@1200 [facility] Last Admin: 07/04/20 08:57 Dose: 2.5 mg Documented by: Sodium Chloride (0.9% Saline Lock 10 Ml Syringe) 10 - 40 ml IV UD PRN PRN Reason: SALINE FLUSH Last Admin: 07/03/20 23:28 Dose: 10 ml Documented by: Vancomycin HCl (Vancomcyin 125 Mg/5 Ml Susp Po.Syringe) 125 mg PO Q6 [facility] Last Admin: 07/04/20 08:58 Dose: 125 mg Documented by: Medical Necessity - Tobacco Use Smoking Status: Never smoker Assessment/Plan All Active Problems (Last Reviewed 06/16/20 @ 07:[address] Marc Snow MD) Generalized weakness (Acute) Hyperkalemia (Acute) Symptomatic bradycardia (Acute) Chest pain (Acute) Septic shock (Acute) Pneumonia due to COVID-19 virus (Acute) Healthcare-associated pneumonia (Acute) COVID-19 (Acute) Hypoxia (Acute) Shortness of breath (Acute) Anemia (Acute) Hyponatremia (Acute) 1. Hypovolemic shock secondary to acute blood loss anemia secondary to GI bleed/diarrhea -She received 4 units PRBCs, 1 peripherally and 3 given through dialysis -She also received a 250 cc bolus in the ER as well as a 400 cc bolus during dialysis and blood pressure now stable without any need for pressors -She did have a slight elevation to her troponin though as stated in the HPI, this is not unremarkable given her renal failure, and her baseline troponin is anywhere between 0.3 and 0.5 therefore the rise in her troponin today is likely secondary to demand ischemia from her anemia and bradycardia -C. difficile test positive for antigen and DNA but negative for toxin however given the GI bleed and the white count of 17 today, will initiate treatment with p.o. vancomycin. It is possible C. difficile colitis however there is no toxin production -Hemoglobin improved from 4.5 initially to 9.5 and is down to 8.2 today we will recheck in the morning. If hemoglobin is stable then can push scopes to the outpatient setting 2. CAD/HTN -We will hold her aspirin given her GI bleed -Also will to completely discontinue her metoprolol, on her previous admission she was decreased from 50 mg p.o. twice daily down to 25 mg p.o. twice daily given the fact that she presented to the hospital with a heart rate in the 40s, she is unlikely to be able to tolerate this well at discharge -Once she is stable, will evaluate her blood pressure and adjust her medications as necessary 3. End-stage renal disease -Continue with dialysis which she received today -Appreciate nephrology assistance 4. Rheumatoid arthritis -When she is able to take p.o., can resume DVT: SCDs Inpatient E&M: 50152 Subs Hosp L2
[2020-07-04] MEDS: Acetaminophen 325 MG Tablet 650 MG PO ×2 (12:00→20:33)
--- NOTE | 2020-07-04 12:08 | CM.UR ---
Participated in interdisciplinary rounds. Patient's diarrhea has stopped. + covid. Care Management will continue to follow. Hector Banerjee RN,CCM.
--- NOTE | 2020-07-04 19:37 | PCM.PN.REN ---
Patient Problems: Active and Suspected Problems (Last Reviewed 06/16/20 @ 07:[address] Marc Snow MD) Generalized weakness (Acute) Anemia (Acute) Subjective: Following for ESRD. Pt seen during HD. She denies CP, SOB or nausea. - Physical Exam Vitals/I&O's: Vital Signs Temp Pulse Resp BP Pulse Ox 97.3 F L 87 12 106/71 97 07/04/20 16:00 07/04/20 16:00 07/04/20 16:00 07/04/20 16:00 07/04/20 16:00 Oxygen Flow Rate (L/min) 1 Oxygen Delivery Method Room Air Weight: 90.356 kg Body Mass Index (BMI) 30.5 Finger Stick Blood Glucose 143 Intake and Output for Last 24 Hours 07/02/20 07/03/20 07/04/20 23:59 23:59 23:59 Intake Total 2200 / 2200 370 / 470 1190 / 1190 Output Total 1500 / 1500 0 / 0 Balance 700 / 700 370 / 470 1190 / 1190 General: Alert, Oriented x3 HEENT: Atraumatic, EOMI, Normocephalic Oral: Moist Mucosa Neck: Supple Lungs: Clear to auscultation Cardiovascular: Normal S1, Normal S2, No murmurs Abdomen: Bowel Sounds Present, Soft, Non Tender, Non-Distended Extremities: No clubbing, No cyanosis, Edema - R upper extremity Microbiology Past 72 Hours 07/02/20 22:05 Stool Stool Lactoferrin - Final 07/02/20 22:05 Stool Enteric Bacteriology - Final 07/02/20 22:05 Stool C. difficile GDH Antigen & Toxins - Final 07/02/20 22:05 Stool C. difficile DNA Amplification - Final 07/02/20 20:30 Mucosa - Nasopharyngeal SARS-CoV-2 Antigen (Rapid) - Final Laboratory Results 07/03/20 19:52: Hgb 9.0 L, Hct 27.1 L 07/04/20 05:45: WBC 19.1 H, RBC 2.76 L, Hgb 8.2 L, Hct 25.4 L, MCV 92.0, MCH 29.7, MCHC 32.3 D, RDW Std Deviation 54.9 H, RDW Coeff of Mika 16.6 H, Plt Count 347, MPV 10.0, Immature Gran % (Auto) 1.000 H, Neut % (Auto) 79.1 H, Lymph % (Auto) 13.1 L, [place] % (Auto) 5.0, Eos % (Auto) 1.7, Baso % (Auto) 0.1, Absolute Neuts (auto) 15.1 H, Absolute Lymphs (auto) 2.50, Nucleated RBC % 0.2 07/04/20 05:45: Sodium 126 L, Potassium 4.7, Chloride 89 L, Carbon Dioxide 28.0, BUN 54 H, Creatinine 4.54 H, Estim Creat Clear Calc 11.72, Est GFR (MDRD) Af Amer 13 L, Est GFR (MDRD) Non-Af 10 L, BUN/Creatinine Ratio 11.9, Glucose 92, Calcium 7.2 L, Phosphorus 5.7 H, Albumin 1.6 L Current Medications Acetaminophen (Acetaminophen 325 Mg Tablet) 650 mg PO Q6H PRN PRN PRN Reason: Pain Score 1-10/Temp > 100.7 F Last Admin: 07/04/20 12:00 Dose: 650 mg Documented by: Calcium Carbonate (Calcium Carbonate 500 Mg Tablet) 500 mg PO Q6H PRN PRN PRN Reason: HEARTBURN OR INDIGESTION Pantoprazole Sodium 40 mg/ (Sodium Chloride) 110 mls @ 330 mls/hr IV Q12 [facility] Last Infusion: 07/04/20 18:56 Dose: Infused Documented by: Prednisone (Prednisone 5 Mg Tablet) 2.5 mg PO DAILY@1200 [facility] Last Admin: 07/04/20 08:57 Dose: 2.5 mg Documented by: Sodium Chloride (0.9% Saline Lock 10 Ml Syringe) 10 - 40 ml IV UD PRN PRN Reason: SALINE FLUSH Last Admin: 07/03/20 23:28 Dose: 10 ml Documented by: Vancomycin HCl (Vancomcyin 125 Mg/5 Ml Susp Po.Syringe) 125 mg PO Q6 [facility] Last Admin: 07/04/20 14:00 Dose: 125 mg Documented by: Medical Necessity - Tobacco Use Smoking Status: Never smoker Assessment/Plan All Active Problems (Last Reviewed 06/16/20 @ 07:[address] Marc Snow MD) Generalized weakness (Acute) Hyperkalemia (Acute) Symptomatic bradycardia (Acute) Chest pain (Acute) Septic shock (Acute) Pneumonia due to COVID-19 virus (Acute) Healthcare-associated pneumonia (Acute) COVID-19 (Acute) Hypoxia (Acute) Shortness of breath (Acute) Anemia (Acute) Hyponatremia (Acute) 1. ESRD. HD on MWF. I supervised the HD today. Pt seen during HD. Tolerating HD well thus far. 2. Anemia. Pt has underlying anemia of CKD as well as probable acute blood loss from GI bleed. On PPI. Surgery has seen the pt. No plans for endoscopy at this time. Will continue TAMMY with HD. 3. Hyponatremia. Na is 126. She is asymptomatic. Hyponatremia is due to ESRD. Recheck Na in am. Na should improve with HD. 4. C diff colitis. On oral vancomycin. Management as per hospitalist. 5. Recent COVID infection. Negative test yesterday. Pt can return to her usual dialysis unit after discharge if she has another negative test.
[2020-07-04] MEDS: 0.9% Saline Lock 10 ML Syringe IV (20:34)
--- NOTE | 2020-07-04 21:10 | DIALYSIS ---
HD x 3.5 hours complete. Tolerated tx fairly well. Bp did drop during tx. Dr. Mccullough is aware. Only able to remove 700ml. Used right chest wall catheter. Catheter closed with heparin per fill volume. Caps placed. Dressing is intact. Report was given to BELKYS Cherry.
[2020-07-04] MEDS: Heparin 10,000 UNITS/10 ML Vial IV (21:29)
--- NOTE | 2020-07-04 21:45 | NURSING ---
report given to BELKYS Conley. Transferred to [id number] at this time.
[2020-07-05] VITALS (9 sets, daily range): BP systolic 116–141; BP diastolic 69–86; PULSE 96–111; RESP 18–20; TEMP 36.7–37.1; O2SAT 94–97
[2020-07-05] MEDS: Calcium Carbonate 500 MG Tablet PO (01:55)
[2020-07-05 06:39] LABS: Absolute Lymphocyte Count 1.43 X10^3/uL (0.83-4.51); Absolute Neutrophil Count 10.8 X10^3/uL (2.0-7.7); Basophil# 0.02 X10^3/uL; Basophil% 0.2 % (0-1); Eosinophils% 0.8 % (0-5); Hematocrit 25.1 % (37-47); Lymphocyte # 1.43 X10^3/ul (4.0); Lymphocyte % 10.8 % (19-41); Mean Corp Hgb Conc 31.9 g/dL (32-36); Mean Platelet Vol. 10.7 fl (6.2-12.0); Monocyte# 0.85 X10^3/uL; Monocyte% 6.4 % (0-10); NRBC Flagged by Analyzer 0.2 % (0-5); Neutrophil # 10.79 X10^3/uL (2.7-7.7); Platelet Count 399 K/mm3 (150-450); RBC Distribution Width CV 16.7 % (11.6-14.6); RBC Distribution Width SD 55.9 fl (35.1-43.9); Red Blood Count 2.67 M/mm3 (4.2-5.4); White Blood Count 13.3 K/mm3 (4.4-11.0)
[2020-07-05 07:16] LABS: Anion Gap 8 (5-15); BUN 27 mg/dL (7-18); BUN/Creat Ratio 8.7 RATIO (10-20); Calcium,Total 7.2 mg/dL (8.5-10.1); Chloride 99 mmol/L (98-107); EST Glomerular Filtration Rate 16 mL/min (>60); Est Glom Filt Rate - Afr Amer 19 mL/min (>60); Estimated Creatinine Clearance 17.16 ml/min; Glucose 104 mg/dL (74-106); Potassium 4.2 mmol/L (3.5-5.1); Sodium Level 135 mmol/L (136-145)
--- NOTE | 2020-07-05 09:33 | PCM.PN.SRG ---
Patient Problems: Active and Suspected Problems (Last Reviewed 06/16/20 @ 07:[address] Marc Snow MD) Generalized weakness (Acute) Anemia (Acute) Subjective: Patient reports having normal bowel movements that are her normal color. She is not having any abdominal pain. - Physical Exam Vitals/I&O's: Vital Signs Temp Pulse Resp BP Pulse Ox 98.6 F 105 H 18 116/69 94 07/05/20 03:51 07/05/20 04:31 07/05/20 03:51 07/05/20 03:51 07/05/20 03:51 Oxygen Flow Rate (L/min) 1 Oxygen Delivery Method Room Air Weight: 190 lb 14.725 oz Body Mass Index (BMI) 30.5 Finger Stick Blood Glucose 143 Intake and Output for Last 24 Hours 07/03/20 07/04/20 07/05/20 23:59 23:59 23:59 Intake Total 370 / 470 1390 / 1390 300 / 300 Output Total 0 / 0 Balance 370 / 470 1390 / 1390 300 / 300 General: Alert, Oriented x3 Lungs: Normal air movement Cardiovascular: Regular rate, Regular Rhythm Abdomen: Soft, Non Tender, Non-Distended Microbiology Past 72 Hours 07/02/20 22:05 Stool Stool Lactoferrin - Final 07/02/20 22:05 Stool Enteric Bacteriology - Final 07/02/20 22:05 Stool C. difficile GDH Antigen & Toxins - Final 07/02/20 22:05 Stool C. difficile DNA Amplification - Final 07/02/20 20:30 Mucosa - Nasopharyngeal SARS-CoV-2 Antigen (Rapid) - Final Laboratory Results 07/05/20 06:07: WBC 13.3 H, RBC 2.67 L, Hgb 8.0 L, Hct 25.1 L, MCV 94.0, MCH 30.0, MCHC 31.9 L, RDW Std Deviation 55.9 H, RDW Coeff of Mika 16.7 H, Plt Count 399, MPV 10.7, Immature Gran % (Auto) 0.800, Neut % (Auto) 81.0 H, Lymph % (Auto) 10.8 L, [place] % (Auto) 6.4, Eos % (Auto) 0.8, Baso % (Auto) 0.2, Absolute Neuts (auto) 10.8 H, Absolute Lymphs (auto) 1.43, Nucleated RBC % 0.2 07/05/20 06:07: Sodium 135 L, Potassium 4.2, Chloride 99, Carbon Dioxide 28.0, Anion Gap 8, BUN 27 H, Creatinine 3.10 H, Estim Creat Clear Calc 17.16, Est GFR (MDRD) Af Amer 19 L, Est GFR (MDRD) Non-Af 16 L, BUN/Creatinine Ratio 8.7 L, Glucose 104, Calcium 7.2 L Current Medications Acetaminophen (Acetaminophen 325 Mg Tablet) 650 mg PO Q6H PRN PRN PRN Reason: Pain Score 1-10/Temp > 100.7 F Last Admin: 07/04/20 20:33 Dose: 650 mg Documented by: Calcium Carbonate (Calcium Carbonate 500 Mg Tablet) 500 mg PO Q6H PRN PRN PRN Reason: HEARTBURN OR INDIGESTION Last Admin: 07/05/20 01:55 Dose: 500 mg Documented by: Pantoprazole Sodium 40 mg/ (Sodium Chloride) 110 mls @ 330 mls/hr IV Q12 [facility] Last Infusion: 07/04/20 20:54 Dose: Infused Documented by: Prednisone (Prednisone 5 Mg Tablet) 2.5 mg PO DAILY@1200 [facility] Last Admin: 07/04/20 08:57 Dose: 2.5 mg Documented by: Sodium Chloride (0.9% Saline Lock 10 Ml Syringe) 10 - 40 ml IV UD PRN PRN Reason: SALINE FLUSH Last Admin: 07/04/20 20:34 Dose: 20 ml Documented by: Vancomycin HCl (Vancomcyin 125 Mg/5 Ml Susp Po.Syringe) 125 mg PO Q6 [facility] Last Admin: 07/05/20 05:27 Dose: 125 mg Documented by: Medical Necessity - Tobacco Use Smoking Status: Never smoker Assessment/Plan All Active Problems (Last Reviewed 06/16/20 @ 07:[address] Marc Snow MD) Generalized weakness (Acute) Hyperkalemia (Acute) Symptomatic bradycardia (Acute) Chest pain (Acute) Septic shock (Acute) Pneumonia due to COVID-19 virus (Acute) Healthcare-associated pneumonia (Acute) COVID-19 (Acute) Hypoxia (Acute) Shortness of breath (Acute) Anemia (Acute) Hyponatremia (Acute) 64-year-old female with anemia 1. Patient reports that she had several bowel movements and is not having abdominal pain. She reports her bowel movements are the normal color that she has been having at home. The patient's hemoglobin is stable. Dr. Goodman's plan is to perform outpatient endoscopy. Mamadou Fletcher MD Pager: [facility] [address] [place] [address], [address] [place] [address] Office:
[2020-07-05] MEDS: Acetaminophen 325 MG Tablet 650 MG PO (09:58)
--- NOTE | 2020-07-05 11:07 | DCINST_ITS ---
- Discharge Diagnoses Current Active Problems: Current Active and Chronic Problems (Last Reviewed 06/16/20 @ 07:[address] Marc Snow MD) Generalized weakness (Acute) ESRD (end stage renal disease) on dialysis (Chronic) Anemia (Acute) Chronic renal failure (Chronic) Congestive heart failure (Chronic) Rheumatoid arthritis (Chronic) You will use the following diet at home:: Renal (restricted protein/sodium) Your food should be the consistency of: Regular Your liquids should be the consistency of: Regular/Thin Discharge Activity: Return to Normal Activity Call your doctor if you observe: Fever of 101 or Higher, Shortness of breath, Dizziness, Fainting spells, Swelling in the ankles, Chest pain, Increased palpitations (irregular heartbeat) Additional Instructions: Please obtain a CBC by your PCP on monday or monday to evaluate your anemia Allergies/Adverse Reactions: Allergies No Known Allergies Allergy (Verified 06/23/20 10:05) Medications to take at Discharge Sevelamer Carbonate 240 mg PO TIDCM 10/29/19 Acetaminophen [Tylenol Tablet] 650 mg PO Q6H PRN PRN #30 tab 10/31/19 Alprazolam [Xanax] 1 mg PO TID PRN PRN 06/23/20 Fluticasone 0.05% [Flonase Nasal [place]] 2 spray NASAL DAILY 06/23/20 Prednisone 2.5 mg PO 1200 06/23/20 Aspirin [Aspirin, Baby] 81 mg PO DAILY@0800 #0 07/05/20 Metoprolol(XL)Succ [Toprol Xl (Beta Azra)] 25 mg PO DAILY #0 07/05/20 Pantoprazole Sodium [Protonix] 40 mg PO DAILY #30 tab 07/05/20 Vancomcyin 125mg/5mL PO Liquid 125 mg PO Q6 #32 po.syringe 07/05/20 The following prescriptions were given: Pantoprazole Sodium [Protonix] 40 mg PO DAILY #30 tab Transmission Status[facility] Vancomcyin 125mg/5mL PO Liquid 125 mg PO Q6 #32 po.syringe Transmission Status: Pending to [facility] Primary Care Physician: Jabier Arboleda, [Primary Care Provider] - Please follow up with your Primary Care Physician in: 3-5 days Test Results: Test results from this visit will be discussed in further detail at your follow- up appointment, if applicable. Please Follow Up With: Mayra Goodman MD When: 1-2 weeks
[2020-07-05] MEDS: predniSONE 5 MG Tablet 2.5 MG PO (12:56)
--- NOTE | 2020-07-05 14:17 | DS.PCM_ITS ---
Discharge Date and Diagnosis - Problem List Patient Problems: Active and Suspected Problems (Last Reviewed 06/16/20 @ 07:[address] Marc Snow MD) Generalized weakness (Acute) Anemia (Acute) Date of Admission: 07/02/20 Date of Discharge: 07/05/20 - Primary Discharge Diagnosis Acute Problems: Active Problems (Last Reviewed 06/16/20 @ 07:[address] Marc Snow MD) Generalized weakness (Acute) Anemia (Acute) - Secondary Discharge Diagnosis Chronic Problems: Chronic Problems (Last Reviewed 06/16/20 @ 07:[address] Marc Snow MD) ESRD (end stage renal disease) on dialysis (Chronic) Chronic renal failure (Chronic) NSTEMI (non-ST elevated myocardial infarction) (Chronic) Dialysis patient (Chronic) Elevated troponin (Chronic) Congestive heart failure (Chronic) Rheumatoid arthritis (Chronic) Amyloidosis (Chronic) CKD (chronic kidney disease) stage 4, GFR 15-29 ml/min (Chronic) Renal anasarca (Chronic) Hospital Course and Treatment Imaging Results: Clinical Impression(s) from Imaging Studies Chest X-Ray 07/02/20 07:25 IMPRESSION: Cardiomegaly. The lungs are clear. Electronically Signed: Pop Pimetnel, at 10:12 EST , Service support , Chest CTA 07/02/20 10:35 IMPRESSION: No evidence of pulmonary emboli. Mild increased markings at the lung bases as well as in the right middle lobe suggestive of scarring. No focal consolidation is seen. Electronically Signed: Pop Pimentel, at 10:53 EST , Service support , Consults: General Surgery Nephrology Operations: None Procedures: None Summary of Care Provided: Per HPI: The patient is a 64 year old F PMH as below who was recently admitted on 06/15/2020 for Covid pneumonia. This was a very mild case and she is currently 16 days out from the positive past and over 20 days out since symptom onset and she states that she does not have any symptoms of a URI, shortness of breath or dizziness. She is weak and states that about 2 days ago she noticed blood in her stool though that was just one time. She does have a history of hemorrhoids. She presented to the ER today because she just felt generalized weakness and some chest pressure. It was found that she had an elevated troponin to 0.651 though this is not in and of itself unremarkable considering she has never actually had a normal troponin given her renal failure that requires dialysis also her D-dimer significantly elevated and a CTA in the ER was negative. She was found to be severely anemic with a hemoglobin of 4.5, likely from a GI source given her history from 2 days ago bloody BM. A stool studies and fecal occult are also pending secondary to her history of diarrhea though she has not had a bowel movement yet during the admission. Hospital Course: 1. Hypovolemic shock secondary to acute blood loss anemia secondary to GI bleed/diarrhea -She received 4 units PRBCs, 1 peripherally and 3 given through dialysis -She also received a 250 cc bolus in the ER as well as a 400 cc bolus during dialysis and blood pressure now stable without any need for pressors -She did have a slight elevation to her troponin though as stated in the HPI, this is not unremarkable given her renal failure, and her baseline troponin is anywhere between 0.3 and 0.5 therefore the rise in her troponin today is likely secondary to demand ischemia from her anemia and bradycardia -C. difficile test positive for antigen and DNA but negative for toxin however given the GI bleed and the white count of 13.3 today, will continue with p.o. vancomycin. It is possible C. difficile colitis however there is no toxin production -Hemoglobin improved from 4.5 initially to 9.5 and is down to 8.0. Her hemoglobin is stable therefore she can pursue outpatient EGD and colonoscopy -She is continuing to have some diarrhea and therefore we will continue with p.o. vancomycin for 10 days -We will continue with Protonix 40 mg p.o. daily and follow-up with surgery as an outpatient -I discussed with her the plan for discharge and she expressed understanding the risk benefits of going home and would like to go home today 2. CAD/HTN -We will hold her aspirin given her GI bleed -Also will to completely discontinue her metoprolol, on her previous admission she was decreased from 50 mg p.o. twice daily down to 25 mg p.o. twice daily given. Because she seems to not be able to tolerate 25 mg p.o. daily, will transition her to 25 mg p.o. daily as her heart rate has increased in the 110's -Once she is stable, will evaluate her blood pressure and adjust her medications as necessary 3. End-stage renal disease -Continue with dialysis Monday, , Monday -Appreciate nephrology assistance 4. Rheumatoid arthritis -When she is able to take p.o., can resume Patient Problems: Active and Suspected Problems (Last Reviewed 06/16/20 @ 07:[address] Marc Snow MD) Generalized weakness (Acute) Anemia (Acute) - Physical Exam Vitals/I&O's: Vital Signs Temp Pulse Resp BP Pulse Ox 98.7 F 109 H 20 H 141/79 H 97 07/05/20 09:50 07/05/20 11:55 07/05/20 09:50 07/05/20 09:50 07/05/20 09:50 Oxygen Flow Rate (L/min) 1 Oxygen Delivery Method Room Air Weight: 190 lb 14.725 oz Body Mass Index (BMI) 30.5 Finger Stick Blood Glucose 143 Intake and Output for Last 24 Hours 07/03/20 07/04/20 07/05/20 23:59 23:59 23:59 Intake Total 370 / 470 1390 / 1390 890 / 890 Output Total 0 / 0 Balance 370 / 470 1390 / 1390 890 / 890 General: Alert, Oriented x3, Cooperative, No apparent distress HEENT: Atraumatic, PERRLA, EOMI, Normocephalic Oral: Dry Mucosa Neck: Supple, No JVD Lungs: Clear to auscultation, Normal air movement, No rhonchi, No wheeze, No rales Cardiovascular: Regular rate and rhythm, Normal S1, Normal S2, No murmurs Abdomen: Soft, Non Tender, Non-Distended, No Hepato-splenomegaly Extremities: No edema, Capillary Refill Less than 3 Seconds Skin: No rashes, No breakdown Neurological: Neuro grossly intact, Sensory exam intact to light touch and pain Psych/Mental Status: Normal Affect, Appropriate Microbiology Past 72 Hours 07/02/20 22:05 Stool Stool Lactoferrin - Final 07/02/20 22:05 Stool Enteric Bacteriology - Final 07/02/20 22:05 Stool C. difficile GDH Antigen & Toxins - Final 07/02/20 22:05 Stool C. difficile DNA Amplification - Final 07/02/20 20:30 Mucosa - Nasopharyngeal SARS-CoV-2 Antigen (Rapid) - Final Laboratory Results 07/05/20 06:07: WBC 13.3 H, RBC 2.67 L, Hgb 8.0 L, Hct 25.1 L, MCV 94.0, MCH 30.0, MCHC 31.9 L, RDW Std Deviation 55.9 H, RDW Coeff of Mika 16.7 H, Plt Count 399, MPV 10.7, Immature Gran % (Auto) 0.800, Neut % (Auto) 81.0 H, Lymph % (Auto) 10.8 L, [place] % (Auto) 6.4, Eos % (Auto) 0.8, Baso % (Auto) 0.2, Absolute Neuts (auto) 10.8 H, Absolute Lymphs (auto) 1.43, Nucleated RBC % 0.2 07/05/20 06:07: Sodium 135 L, Potassium 4.2, Chloride 99, Carbon Dioxide 28.0, Anion Gap 8, BUN 27 H, Creatinine 3.10 H, Estim Creat Clear Calc 17.16, Est GFR (MDRD) Af Amer 19 L, Est GFR (MDRD) Non-Af 16 L, BUN/Creatinine Ratio 8.7 L, Glucose 104, Calcium 7.2 L Current Medications Acetaminophen (Acetaminophen 325 Mg Tablet) 650 mg PO Q6H PRN PRN PRN Reason: Pain Score 1-10/Temp > 100.7 F Last Admin: 07/05/20 09:58 Dose: 650 mg Documented by: Calcium Carbonate (Calcium Carbonate 500 Mg Tablet) 500 mg PO Q6H PRN PRN PRN Reason: HEARTBURN OR INDIGESTION Last Admin: 07/05/20 01:55 Dose: 500 mg Documented by: Pantoprazole Sodium 40 mg/ (Sodium Chloride) 110 mls @ 330 mls/hr IV Q12 RUBIO Last Infusion: 07/05/20 11:20 Dose: Infused Documented by: Prednisone (Prednisone 5 Mg Tablet) 2.5 mg PO DAILY@1200 RUBIO Last Admin: 07/05/20 12:56 Dose: 2.5 mg Documented by: Sodium Chloride (0.9% Saline Lock 10 Ml Syringe) 10 - 40 ml IV UD PRN PRN Reason: SALINE FLUSH Last Admin: 07/04/20 20:34 Dose: 20 ml Documented by: Vancomycin HCl (Vancomcyin 125 Mg/5 Ml Susp Po.Syringe) 125 mg PO Q6 RUBIO Last Admin: 07/05/20 12:56 Dose: 125 mg Documented by: Discharge Activity: Return to Normal Activity Call your doctor if you observe: Fever of 101 or Higher, Shortness of breath, Dizziness, Fainting spells, Swelling in the ankles, Chest pain, Increased palpitations (irregular heartbeat) Home Medications: Medications to take at Discharge Sevelamer Carbonate 240 mg PO TIDCM 10/29/19 Acetaminophen [Tylenol Tablet] 650 mg PO Q6H PRN PRN #30 tab 10/31/19 Alprazolam [Xanax] 1 mg PO TID PRN PRN 06/23/20 Fluticasone 0.05% [Flonase Nasal [place]] 2 spray NASAL DAILY 06/23/20 Prednisone 2.5 mg PO 1200 06/23/20 Aspirin [Aspirin, Baby] 81 mg PO DAILY@0800 #0 07/05/20 Metoprolol(XL)Succ [Toprol Xl (Beta Azra)] 25 mg PO DAILY #0 07/05/20 Pantoprazole Sodium [Protonix] 40 mg PO DAILY #30 tab 07/05/20 Vancomcyin 125mg/5mL PO Liquid 125 mg PO Q6 #32 po.syringe 07/05/20 Following Prescriptions Were Given to Patient: Pantoprazole Sodium [Protonix] 40 mg PO DAILY #30 tab Transmission Status: Received by [facility] Vancomcyin 125mg/5mL PO Liquid 125 mg PO Q6 #32 po.syringe Transmission Status: Received by [facility] Primary Care Physician: Jabier Arboleda DO [Primary Care Provider] - Please follow up with your Primary Care Physician in: 3-5 days Please Follow Up With: Mayra Goodman MD When: 1-2 weeks Disposition: Home Minutes spent on discharge:: 35 Patient Condition:: Stable Medical Necessity - Tobacco Use Smoking Status: Never smoker Meaningful Use Info Meaningful Use Diagnoses (Choose all that apply): None applicable Inpatient E&M: 38335 [facility] Hosp
--- NOTE | 2020-07-06 17:06 | CASEMGMT ---
BELKYS COTTRELL Discharge Follow-up Phone Call: LINDA: Jd Strata: 4 Call Date: 07/06/2020 Discharge Date: 07/05/2020 Time of Call: 1705 Admitting Diagnosis: GI Bleed, ABLA Discharge follow-up call placed to pt. Non-indentifying voicemail received. Nondescript message left requesting a return call. Lv Blanco RN CM
== END 2020-07-05 14:51 | disposition home or self-care (01) | DRG 377 ==
LOC: ED 11:00 → ICU 11:54 → MS3 07-06 13:02
PROVIDERS: Internal Medicine Nephrology; Admitting Provider Family Medicine; Emergency Provider Emergency Medicine; PCP Family Medicine; Visit Provider Family Medicine
DX: K92.1 Melena (principal); N18.6 End stage renal disease; R57.1 Hypovolemic shock; R57.8 Other shock; I13.2 Hypertensive heart and chronic kidney disease with heart failure and with stage 5 chronic kidney disease, or end stage renal disease; I24.8 Other forms of acute ischemic heart disease; E85.9 Amyloidosis, unspecified; N04.9 Nephrotic syndrome with unspecified morphologic changes; D62 Acute posthemorrhagic anemia; A04.72 Enterocolitis due to Clostridium difficile, not specified as recurrent; E87.1 Hypo-osmolality and hyponatremia; I25.10 Atherosclerotic heart disease of native coronary artery without angina pectoris; I50.9 Heart failure, unspecified; E87.5 Hyperkalemia; D63.1 Anemia in chronic kidney disease; M06.9 Rheumatoid arthritis, unspecified; I25.2 Old myocardial infarction; Z99.2 Dependence on renal dialysis; Z86.19 Personal history of other infectious and parasitic diseases; Z79.899 Other long term (current) drug therapy
CPT/HCPCS: 36415; 71045; 71275; 80048; 80069; 83630; 84484; 85014; 85018; 85025; 85379; 86644; 86850; 86900; 86901; 86920; 86922; 87177; 87209; 87426; 87493; 87506; 87635; 90937; 93005; 99285; J7050; P9016; Q9967; A4216; G0257; U0002

== ENCOUNTER 2020-09-22 18:04 | Inpatient (IN) | payer OTHER, SELFPAY ==
[2020-07-02 14:13] VITALS: BMI 30.5
[2020-09-22 18:05] VITALS: BP 129/79; PULSE 63; RESP 17; TEMP 36.1; O2SAT 97; BMI 26.9
[2020-09-22 18:59] VITALS: BP 121/79; BP 127/77; BP 84/51; PULSE 90; PULSE 93; PULSE 96
[2020-09-22 19:28] LABS: Absolute Lymphocyte Count 0.85 X10^3/uL (0.83-4.51); Absolute Neutrophil Count 7.6 X10^3/uL (2.0-7.7); Eosinophil# 0.01 X10^3/uL; Eosinophils% 0.1 % (0-5); Hematocrit 28.7 % (37-47); Hemoglobin 8.7 g/dL (12.0-15.0); Lymphocyte # 0.85 X10^3/ul (4.0); Lymphocyte % 9.4 % (19-41); Mean Corp Hgb Conc 30.3 g/dL (32-36); Mean Corpuscular Hgb 28.3 pg (27.0-32.0); Mean Corpuscular Volume 93.5 fL (81-99); Mean Platelet Vol. 10.4 fl (6.2-12.0); Monocyte# 0.57 X10^3/uL; Monocyte% 6.3 % (0-10); NRBC Flagged by Analyzer 0.2 % (0-5); Neutrophil # 7.63 X10^3/uL (2.7-7.7); Neutrophil % 83.9 % (47-70); Platelet Count 581 K/mm3 (150-450); RBC Distribution Width CV 17.6 % (11.6-14.6); RBC Distribution Width SD 59.6 fl (35.1-43.9); Red Blood Count 3.07 M/mm3 (4.2-5.4); White Blood Count 9.1 K/mm3 (4.4-11.0)
[2020-09-22 19:31] LABS: International Normalized Ratio 3.3; Prothrombin Time (Protime)PT. 33.1 SECONDS (11.7-14.9)
[2020-09-22 19:33] LABS: Partial Thromboplast Time 57.5 Seconds (24.1-36.2)
[2020-09-22 19:40] LABS: ALB/GLOB Ratio 0.6 RATIO (0.9-2.4); AST(SGOT) 32 U/L (15-37); Alanine Aminotransfer ALT/SGPT 28 U/L (13-56); Albumin, Serum 2.2 g/dL (3.2-5.0); Alkaline Phosphatase 531 U/L (45-117); Anion Gap 7 (5-15); BUN 34 mg/dL (7-18); BUN/Creat Ratio 8.1 RATIO (10-20); Calcium,Total 8.7 mg/dL (8.5-10.1); Chloride 99 mmol/L (98-107); EST Glomerular Filtration Rate 11 mL/min (>60); Est Glom Filt Rate - Afr Amer 14 mL/min (>60); Glucose 106 mg/dL (74-106); Potassium 5.1 mmol/L (3.5-5.1); Protein, Total 6.2 g/dL (6.4-8.2); Sodium Level 136 mmol/L (136-145)
[2020-09-22 20:09] VITALS: BP 84/55; PULSE 85; RESP 16
--- NOTE | 2020-09-22 20:40 | ED.VISSUMM ---
- ER Visit Summary Date of Service: 09/22/20 Chief Complaint: Diarrhea History of Present Illness: The patient is a [address] Arboleda and Dr. Sterling. She reports that she has had diarrhea for the past 3 weeks. States this is occurring every 10 to 15 minutes. This stool has been black for the past week. She denies any abdominal pain. No nausea or vomiting. She is oliguric and this is unchanged. She had a full round of dialysis yesterday. States that she been taking Imodium without any relief. She is not taking Pepto-Bismol. Patient denies sick contacts. Has not been camping out of the country. No possible bad food exposure. She does drink well water, but others do at home as well and they do not have diarrhea. No recent antibiotic use. Patient denies any chest pain or shortness of breath. She does report she has generalized weakness. States that she was admitted to the hospital for this in May and they were unable to find a source for this. She got 4 units of packed red blood cells. She was supposed to follow-up for an outpatient colonoscopy and endoscopy and did not. Physical Examination: Vitals: 97.6, 84/55, 85, 16, 97% room air which not hypoxic. General: Well-nourished and well-developed. Head: Normocephalic atraumatic. Neck: Supple, no lymphadenopathy. No JVD. Nontender. Cardiovascular: Regular rate and rhythm. No murmurs. Respiratory: No respiratory distress. Clear to auscultation bilaterally. Abdominal: Soft, nontender, nondistended, normal bowel sounds. No guarding, rebound, or peritoneal signs. Back: Nontender. Extremities: Nontender, 1+ pitting edema of lower extremities bilaterally. Skin: Normal color, no rash. Neurologic: Alert and oriented ?3. Cranial nerves II through XII are intact. Normal strength and sensation. Psych: Normal affect. Test Results: CBC shows an H&H of 8.7 20.7, stable neutrophils 84, lymphocytes of 9. Her last hemoglobin on July 05 was 8.0. In 2019 she ranged between 4.5?11.9. 7 shows a BUN of 34 and creatinine of 4.2. LFT showed total protein of 6.2, albumin of 2.2, alk phos of 531. Her INR is 3.3. She is not on Coumadin. Due to the concern for a short draw this was repeated and the second 1 was 3.3 as well. Emergency Department Course and Treatment: Patient's orthostatic vital signs were negative. However, she did have diarrhea while here in the emergency department. She was given a dose of Protonix IV. I do not have an explanation for her coagulopathy. Treatment Plan: Patient was discussed with Dr. Snow and will be admitted for further evaluation and treatment. Disposition: Admitted in serious condition. Impression: 1. Diarrhea. 2. Upper GI bleed. 3. Anemia, chronic. 4. End-stage renal disease. 5. Coagulopathy, uncertain cause. This note was generated with [employer] dictation software. It may contain incorrect words, spelling, and punctuation that were not noted in review of the chart prior to signing ED Disposition - Plan for ED Patient: Instructions: ED Diarrhea, Unknown Cause Prescriptions: Diphenoxylate/Atrop [Lomotil] 1 tab PO BID PRN PRN #6 tab PRN Reason: Diarrhea Prescription Printed Referrals: Jabier Arboleda DO [Primary Care Provider] - 1-2 Days if not improving
[2020-09-22 22:08] VITALS: BP 107/74; PULSE 88; RESP 16; O2SAT 98
[2020-09-22 22:38] LABS: International Normalized Ratio 3.3; Prothrombin Time (Protime)PT. 32.9 SECONDS (11.7-14.9)
--- NOTE | 2020-09-22 23:35 | HP.PCM_ITS ---
Problem List (1) Diarrhea Status: Acute (2) Generalized weakness Status: Acute (3) ESRD (end stage renal disease) on dialysis Status: Chronic (4) Hyperkalemia Status: Chronic (5) Anemia Status: Chronic (6) Chronic renal failure Status: Chronic (7) NSTEMI (non-ST elevated myocardial infarction) Status: Chronic (8) Dialysis patient Status: Chronic (9) Elevated troponin Status: Chronic (10) Congestive heart failure Status: Chronic (11) Rheumatoid arthritis Status: Chronic (12) Amyloidosis Status: Chronic (13) CKD (chronic kidney disease) stage 4, GFR 15-29 ml/min Status: Chronic (14) Renal anasarca Status: Chronic History of Present Illness Date of Admission: 09/22/20 Chief Complaint: Diarrhea and black stools The patient is a 65 year old F with a significant history of congestive heart failure; end-stage renal disease on dialysis; and rheumatoid arthritis who presents to the emergency department with a 3-week history of persistent diarrhea. Patient takes Imodium but the Imodium is not helping with the diarrhea. Also she reports black stools. She has poor appetite. At emergency departments her supine blood pressure was low but when she stood up her blood pressure was appropriate. Patient was scheduled to follow-up for outpatient colonoscopy however she was unable to go for colonoscopy. Patient was admitted for COVID-19 pneumonia on 06/15/2020. Past Medical History Past Medical History (Chronic Problems): Chronic Problems (Last Reviewed 09/23/20 @ 00:[address] Marc Snow MD) ESRD (end stage renal disease) on dialysis (Chronic) Hyperkalemia (Chronic) Anemia (Chronic) Chronic renal failure (Chronic) NSTEMI (non-ST elevated myocardial infarction) (Chronic) Dialysis patient (Chronic) Elevated troponin (Chronic) Congestive heart failure (Chronic) Rheumatoid arthritis (Chronic) Amyloidosis (Chronic) CKD (chronic kidney disease) stage 4, GFR 15-29 ml/min (Chronic) Renal anasarca (Chronic) Medical History: Medical History (Last Reviewed 09/23/20 @ 04:[address] Marc Snow MD) NSTEMI (non-ST elevated myocardial infarction) (Chronic) I21.4 Dialysis patient (Chronic) Z99.2 Acute kidney injury superimposed on CKD (Inactive) N17.9, N18.9 Elevated troponin (Chronic) R79.89 Congestive heart failure (Chronic) I50.9 Rheumatoid arthritis (Chronic) M06.9 Amyloidosis (Chronic) E85.9 CKD (chronic kidney disease) stage 4, GFR 15-29 ml/min (Chronic) N18.4 Renal anasarca (Chronic) N04.9 Hyponatremia (Inactive) E87.1 Allergies No Known Allergies Allergy (Verified 09/22/20 18:04) Home Medications: Ambulatory Orders Medication Instructions Recorded Sevelamer Carbonate 240 mg PO TIDCM 10/29/19 Alprazolam [Xanax] 1 mg PO TID PRN PRN 06/23/20 Fluticasone 0.05% [Flonase Nasal 2 spray NASAL DAILY PRN PRN 06/23/20 [place]] Prednisone 2.5 mg PO 1200 06/23/20 Aspirin [Aspirin, Baby] 81 mg PO DAILY@0800 #0 07/05/20 Metoprolol(XL)Succ [Toprol Xl 25 mg PO DAILY #0 07/05/20 (Beta Azra)] Pantoprazole Sodium [Protonix] 40 mg PO DAILY #30 tab 07/05/20 Diphenoxylate/Atrop [Lomotil] 1 tab PO BID PRN PRN #6 tab 09/22/20 Prednisone 5 mg PO BREAKFAST 09/22/20 Acetaminophen [Tylenol] 500 mg PO Q6H PRN PRN 09/23/20 Surgical History: appendectomy, tonsillectomy, - - Left forearm AV fistula; tubal ligation Psychiatric History: Anxiety, Depression SECURITY OFFICER History: No pertinent SECURITY OFFICER history Smoking Status: Never smoker - *Family History Paternal History Items: Diabetes, Heart Disease, - Maternal History Items: - - Denies known maternal medical history including cardiac history. Review of Systems Constitutional: Reports: Anorexia. Denies: Chills, Fever, Weight Change HEENT: Denies: Head Aches, Sinus Congestion, Sinus Drainage Cardiovascular: Denies: Chest Pain, Palpitations Respiratory: Denies: Cough, Shortness of breath at rest, Sputum production Gastrointestinal: Reports: Diarrhea, Melena. Denies: Abdominal Pain, Nausea, Vomiting Genitourinary: Denies: Dysuria Musculoskeletal: Denies: Joint Pain, Joint Tenderness Skin: Denies: Rash, Wounds Neurological: Denies: Numbness, Tingling, Focal weakness Psychiatric: Denies: Anxiety, Depression, Homicidal Ideations, Suicidal Ideations Hematologic/ Lymphatic: Denies: Easy Bruising, Easy Bleeding VTE Information - Inpt Only VTE Present on Admission: No VTE Mechan Device Prophylaxis: SCD's VTE Pharm Prophylaxis ordered?: No Patient Problems: Active and Suspected Problems (Last Reviewed 09/23/20 @ 00:[address] Marc Snow MD) Generalized weakness (Acute) Diarrhea (Acute) - Physical Exam Vitals/I&O's: Vital Signs Temp Pulse Resp BP Pulse Ox 97.0 F L 88 16 107/74 98 09/22/20 18:05 09/22/20 22:08 09/22/20 22:08 09/22/20 22:08 09/22/20 22:08 Oxygen Delivery Method Room Air Weight: 75.5 kg Body Mass Index (BMI) 26.9 Finger Stick Blood Glucose 143 General: Alert, Oriented x3, Cooperative HEENT: Atraumatic, PERRLA, EOMI, Normocephalic Neck: Supple, No JVD, Negative Carotid Bruits Lungs: Clear to auscultation, Normal air movement Cardiovascular: Regular rate, Regular Rhythm, Normal S1, Normal S2, No murmurs Abdomen: Bowel Sounds Present, Soft, Non Tender, - - Rectal exams showed black stools. No mass palpated. Extremities: No edema, Capillary Refill Less than 3 Seconds Skin: No rashes, No breakdown Musculoskeletal: No Tenderness to Palpation of Joints or Extremities Neurological: Cranial nerves II-XII grossly intact Psych/Mental Status: Normal Affect, Appropriate Laboratory Results 09/22/20 18:40: WBC 9.1, RBC 3.07 L, Hgb 8.7 L, Hct 28.7 L, MCV 93.5, MCH 28.3, MCHC 30.3 L, RDW Std Deviation 59.6 H, RDW Coeff of Mika 17.6 H, Plt Count 581 H, MPV 10.4, Immature Gran % (Auto) 0.300, Neut % (Auto) 83.9 H, Lymph % (Auto) 9.4 L, [place] % (Auto) 6.3, Eos % (Auto) 0.1, Baso % (Auto) 0.0, Absolute Neuts (auto) 7.6, Absolute Lymphs (auto) 0.85, Nucleated RBC % 0.2 09/22/20 18:40: PT 33.1 H, INR 3.3, APTT 57.5 H 09/22/20 18:40: Sodium 136, Potassium 5.1, Chloride 99, Carbon Dioxide 30.0, Anion Gap 7, BUN 34 H, Creatinine 4.20 H, Estim Creat Clear Calc 12.50, Est GFR (MDRD) Af Amer 14 L, Est GFR (MDRD) Non-Af 11 L, BUN/Creatinine Ratio 8.1 L, Glucose 106, Calcium 8.7, Total Bilirubin 0.50, AST 32, ALT 28, Alkaline Phosphatase 531 H, Total Protein 6.2 L, Albumin 2.2 L, Globulin 4.0, Albumin/Globulin Ratio 0.6 L 09/22/20 18:40: Blood Type A POSITIVE, Antibody Screen NEGATIVE 09/22/20 20:55: PT Cancelled, INR Cancelled 09/22/20 22:20: PT 32.9 H, INR 3.3 Assessment/Plan All Active Problems (Last Reviewed 09/23/20 @ 00:[address] Marc Snow MD) Generalized weakness (Acute) Diarrhea (Acute) The patient is a 65 year old F with a significant history of congestive heart failure; rheumatoid arthritis; amyloidosis; end-stage renal disease on dialysis; rheumatoid arthritis who presents emergency department with a 3-week history of persistent diarrhea black stools and hypotension. Hemorrhagic diarrhea We will keep patient n.p.o. except meds. Stool studies were ordered emergency department; follow. Discussed with general surgery. General surgery consult. Occult stools ordered. On home Protonix 40 mg p.o. daily. Received IV Protonix bolus at emergency department. Protonix 40 mg IV every 12 hours ordered. Hold home aspirin. Hemoglobin trending down from 8.7 to 7.3. Trend H&H. Transfuse if hemoglobin is less than 7. Hypotension Admit to MedSurg on telemetry Hold home blood pressure medications. Will avoid fluid for now because patient is a dialysis patient. Trend blood pressures. Elevated INR Initial INR was 3.3. Repeat INR at emergency department was 3.3. Etiology unclear. INR in a.m. End-stage renal disease on dialysis On dialysis Fridays. Nephrology consult. Home sevelamer held in the setting of n.p.o.. Resume when patient is no longer n.p.o. Rheumatoid arthritis Prednisone continued Anxiety disorder Xanax continued. Heart failure with preserved ejection fraction Echocardiogram on 09/07/2019 showed an estimate ejection fraction of 55 to 60%. Concentric left ventricular hypertrophy. Mild to moderate valvular dysfunction. Pulmonary artery systolic pressure was 54 mmHg. Stable DVT prophylaxis SCD ordered. Avoid chemical chemoprophylaxis secondary to possible GI bleed. Inpatient E&M: 28242 Init Hosp L3
[2020-09-22 23:48] VITALS: BP 100/65; PULSE 83; RESP 16; TEMP 35.8; O2SAT 98
[2020-09-23] VITALS (12 sets, daily range): BP systolic 102–120; BP diastolic 69–76; PULSE 83–104; RESP 15–18; TEMP 36.2–37.1; O2SAT 94–96; BMI 29.2
[2020-09-23 01:44] LABS: Hematocrit 24.1 % (37-47); Hemoglobin 7.3 g/dL (12.0-15.0)
[2020-09-23] MEDS: Acetaminophen 325 MG Tablet 650 MG PO (02:44)
[2020-09-23 06:54] LABS: Hematocrit 22.6 % (37-47); Hemoglobin 6.8 g/dL (12.0-15.0)
[2020-09-23 07:04] LABS: Prothrombin Time (Protime)PT. 39.3 SECONDS (11.7-14.9)
[2020-09-23 07:07] LABS: International Normalized Ratio 4.1
[2020-09-23 07:31] LABS: Anion Gap 7 (5-15); BUN 42 mg/dL (7-18); BUN/Creat Ratio 9.1 RATIO (10-20); Calcium,Total 8.5 mg/dL (8.5-10.1); Chloride 100 mmol/L (98-107); Creatinine, Serum 4.64 mg/dL (0.55-1.02); EST Glomerular Filtration Rate 10 mL/min (>60); Est Glom Filt Rate - Afr Amer 12 mL/min (>60); Estimated Creatinine Clearance 11.32 ml/min; Glucose 69 mg/dL (74-106); Potassium 4.8 mmol/L (3.5-5.1); Sodium Level 136 mmol/L (136-145)
--- NOTE | 2020-09-23 07:32 | CT_ITS ---
STUDY: CT ABDOMEN AND PELVIS WITH CONTRAST REASON FOR EXAM: Female, 65 years old. Abdominal pain, diarrhea x 3 weeks. Hx renal anasarca, rheumatoid arthritis, CHF, on dialysis. RADIATION DOSAGE (If Supplied By Facility): CTDIvol = ( 23.60 ) mGy, DLP = ( 1130.34 ) mGycm TECHNIQUE: Transaxial images were obtained from the dome of the diaphragm to the symphysis pubis without oral contrast. IV 100mL Isovue-300 was administered. Sagittal and coronal images were reconstructed. Individualized dose optimization techniques were used for this CT. COMPARISON: None. FINDINGS: Stable increased markings at the lung bases suggestive of bibasilar scarring. Coronary artery calcification. Mild cardiomegaly. Small amount of perisplenic and perihepatic fluid. Small amount of fluid is seen in the pelvis. There is heterogeneous enhancement of the liver. Multiple small hepatic cysts. The largest cyst measures 1.4 cm and is in the medial aspect of the right lobe of the liver. Mildly distended gallbladder. Small amount of pericholecystic fluid. There are multiple benign calcified granulomata of the spleen. Mild splenomegaly. Normal pancreas. Normal bilateral adrenal glands. Nonspecific mild degree of bilateral perinephric stranding. Small cysts are seen in the lower pole of the right and left kidneys. Normal visualized stomach. Diverticulum in the second portion of the duodenum. There are multiple colonic diverticula consistent with diverticulosis. The appendix is visualized and appears normal. There is diffuse atherosclerotic calcification of the abdominal aorta, without a demonstrated aneurysm. Normal inferior vena cava. There is borderline retroperitoneal lymphadenopathy with enlarged nodes no greater than 10mm in the short axis diameter. Normal urinary bladder. Calcified fibroid uterus. Normal abdominal wall. There are diffuse degenerative changes of the visualized lumbar spine. Loss of the normal lumbar lordosis. CT/Abdomen/Pelvis W IV Cont ONLY IMPRESSION: Heterogeneous enhancement of the liver with multiple hepatic cysts. Small amount of perihepatic and perisplenic fluid as well as a small amount of fluid in the pelvis. Mildly distended gallbladder with pericholecystic fluid. Nonspecific bilateral perinephric stranding. Sigmoid diverticulosis. Electronically Signed: Pop Pimentel MD at 8:56 EST , Service support ,
[2020-09-23 08:05] LABS: AST(SGOT) 22 U/L (15-37); Alanine Aminotransfer ALT/SGPT 20 U/L (13-56); Albumin, Serum 1.7 g/dL (3.2-5.0); Alkaline Phosphatase 431 U/L (45-117); Bilirubin, Direct 0.25 mg/dL (0.00-0.30); Globulin 3.2 g/dL (2.2-4.2); Protein, Total 4.9 g/dL (6.4-8.2)
[2020-09-23] MEDS: Acetaminophen 500 MG Tablet PO ×2 (09:14→17:53)
--- NOTE | 2020-09-23 10:00 | CON.PCM_ITS ---
Problem List (1) GI bleed Status: Acute Qualifiers: GI bleed type/associated pathology: unspecified gastrointestinal hemorrhage type Qualified Code(s): K92.2 - Gastrointestinal hemorrhage, unspecified Reason for Consult Date of Consultation: 09/23/20 Reason for Consultation: Melena and positive fecal occult blood History of Present Illness: The patient is a 65 year old F Presents to the hospital with diarrhea as well as black stools. The patient is having some abdominal discomfort as well and reports that even clear liquids did not feel well yesterday. She says that she has been having diarrhea for 3 weeks and it started normal diarrhea and now it is turning black. She was seen for possible GI bleed in the hospital recently and was asked to come in for an outpatient scope and did not present for follow- up. Past Medical History Past Medical History (Chronic Problems): Chronic Problems (Last Reviewed 09/23/20 @ 04:[address] Marc Snow MD) ESRD (end stage renal disease) on dialysis (Chronic) Hyperkalemia (Chronic) Anemia (Chronic) Chronic renal failure (Chronic) NSTEMI (non-ST elevated myocardial infarction) (Chronic) Dialysis patient (Chronic) Elevated troponin (Chronic) Congestive heart failure (Chronic) Rheumatoid arthritis (Chronic) Amyloidosis (Chronic) CKD (chronic kidney disease) stage 4, GFR 15-29 ml/min (Chronic) Renal anasarca (Chronic) Medical History: Medical History (Last Reviewed 09/23/20 @ 04:[address] Marc Snow MD) NSTEMI (non-ST elevated myocardial infarction) (Chronic) I21.4 Dialysis patient (Chronic) Z99.2 Acute kidney injury superimposed on CKD (Inactive) N17.9, N18.9 Elevated troponin (Chronic) R79.89 Congestive heart failure (Chronic) I50.9 Rheumatoid arthritis (Chronic) M06.9 Amyloidosis (Chronic) E85.9 CKD (chronic kidney disease) stage 4, GFR 15-29 ml/min (Chronic) N18.4 Renal anasarca (Chronic) N04.9 Hyponatremia (Inactive) E87.1 Allergies No Known Allergies Allergy (Verified 09/22/20 18:04) Home Medications: Ambulatory Orders Medication Instructions Recorded Sevelamer Carbonate 240 mg PO TIDCM 10/29/19 Alprazolam [Xanax] 1 mg PO TID PRN PRN 06/23/20 Fluticasone 0.05% [Flonase Nasal 2 spray NASAL DAILY PRN PRN 06/23/20 [place]] Prednisone 2.5 mg PO 1200 06/23/20 Aspirin [Aspirin, Baby] 81 mg PO DAILY@0800 #0 07/05/20 Metoprolol(XL)Succ [Toprol Xl 25 mg PO DAILY #0 07/05/20 (Beta Azra)] Pantoprazole Sodium [Protonix] 40 mg PO DAILY #30 tab 07/05/20 Diphenoxylate/Atrop [Lomotil] 1 tab PO BID PRN PRN #6 tab 09/22/20 Prednisone 5 mg PO BREAKFAST 09/22/20 Acetaminophen [Tylenol] 500 mg PO Q6H PRN PRN 09/23/20 Surgical History: appendectomy, tonsillectomy, - - Left forearm AV fistula; tubal ligation Psychiatric History: Anxiety, Depression [employer]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 Paternal History Items: Diabetes, Heart Disease, - Review of Systems Constitutional: Denies: Anorexia, Fever Eyes: Denies: Blurred vision HEENT: Denies: Dysphasia Cardiovascular: Denies: Chest Pain Respiratory: Denies: Cough, Shortness of Breath Gastrointestinal: Reports: Abdominal Pain, Diarrhea, Nausea, Melena. Denies: Vomiting Musculoskeletal: Denies: Joint Tenderness Skin: Denies: Dryness Patient Problems: Active and Suspected Problems (Last Reviewed 09/23/20 @ 04:[address] Marc Snow MD) Generalized weakness (Acute) Diarrhea (Acute) - Physical Exam Vitals/I&O's: Vital Signs Temp Pulse Resp BP Pulse Ox 97.8 F 92 18 114/73 96 09/23/20 08:20 09/23/20 08:20 09/23/20 08:20 09/23/20 08:20 09/23/20 08:20 Oxygen Delivery Method Room Air Weight: 180 lb 12.8 oz Body Mass Index (BMI) 29.2 Finger Stick Blood Glucose 143 Intake and Output for Last 24 Hours 09/21/20 09/22/20 09/23/20 23:59 23:59 23:59 Intake Total 60 / 60 Balance 60 / 60 General: Alert, Oriented x3 Neck: No JVD Lungs: Normal air movement Cardiovascular: Regular rate, Regular Rhythm Abdomen: Soft, Non-Distended, Tender - Vague diffuse tenderness Extremities: No clubbing Neurological: Cranial nerves II-XII grossly intact Psych/Mental Status: Normal Affect Microbiology Past 72 Hours 09/22/20 22:15 Stool Stool Lactoferrin - Final 09/22/20 22:15 Stool C. difficile GDH Antigen & Toxins - Final 09/22/20 22:15 Stool C. difficile DNA Amplification - Final 09/22/20 22:15 Stool Stool Occult Blood (ANA) - Final Occult Blood Positive Laboratory Results 09/22/20 18:40: WBC 9.1, RBC 3.07 L, Hgb 8.7 L, Hct 28.7 L, MCV 93.5, MCH 28.3, MCHC 30.3 L, RDW Std Deviation 59.6 H, RDW Coeff of Mika 17.6 H, Plt Count 581 H, MPV 10.4, Immature Gran % (Auto) 0.300, Neut % (Auto) 83.9 H, Lymph % (Auto) 9.4 L, Stevens % (Auto) 6.3, Eos % (Auto) 0.1, Baso % (Auto) 0.0, Absolute Neuts (auto) 7.6, Absolute Lymphs (auto) 0.85, Nucleated RBC % 0.2 09/22/20 18:40: PT 33.1 H, INR 3.3, APTT 57.5 H 09/22/20 18:40: Sodium 136, Potassium 5.1, Chloride 99, Carbon Dioxide 30.0, Anion Gap 7, BUN 34 H, Creatinine 4.20 H, Estim Creat Clear Calc 12.50, Est GFR (MDRD) Af Amer 14 L, Est GFR (MDRD) Non-Af 11 L, BUN/Creatinine Ratio 8.1 L, Glucose 106, Calcium 8.7, Total Bilirubin 0.50, AST 32, ALT 28, Alkaline Phosphatase 531 H, Total Protein 6.2 L, Albumin 2.2 L, Globulin 4.0, Albumin/Globulin Ratio 0.6 L 09/22/20 18:40: Blood Type A POSITIVE, Antibody Screen NEGATIVE 09/22/20 18:40: Crossmatch See Detail 09/22/20 20:55: PT Cancelled, INR Cancelled 09/22/20 22:20: PT 32.9 H, INR 3.3 09/23/20 01:34: Hgb 7.3 L, Hct 24.1 L 09/23/20 06:40: PT 39.3 H, INR 4.1 H* 09/23/20 06:40: Sodium 136, Potassium 4.8, Chloride 100, Carbon Dioxide 29.0, Anion Gap 7, BUN 42 H, Creatinine 4.64 H, Estim Creat Clear Calc 11.32, Est GFR (MDRD) Af Amer 12 L, Est GFR (MDRD) Non-Af 10 L, BUN/Creatinine Ratio 9.1 L, G lucose 69 L, Calcium 8.5 09/23/20 06:40: Hgb 6.8 L, Hct 22.6 L 09/23/20 06:40: Total Bilirubin 0.60, Direct Bilirubin 0.25, AST 22, ALT 20, Alkaline Phosphatase 431 H, Total Protein 4.9 L, Albumin 1.7 L, Globulin 3.2 Clinical Impression(s) from Imaging Studies Abdomen/Pelvis CT 09/23/20 07:32 IMPRESSION: Heterogeneous enhancement of the liver with multiple hepatic cysts. Small amount of perihepatic and perisplenic fluid as well as a small amount of fluid in the pelvis. Mildly distended gallbladder with pericholecystic fluid. Nonspecific bilateral perinephric stranding. Sigmoid diverticulosis. Electronically Signed: Pop Pimentel MD at 8:56 EST , Service support , Current Medications Acetaminophen (Acetaminophen 500 Mg Tablet) 500 mg PO Q6H PRN PRN PRN Reason: Pain 1-10 or Fever Last Admin: 09/23/20 09:14 Dose: 500 mg Documented by: Alprazolam (Alprazolam 0.5 Mg Tablet) 1 mg PO TID PRN PRN PRN Reason: ANXIETY Fluticasone Propionate (Fluticasone 0.05% 1 [place] Nasal.Sry) 2 spray NASAL DAILY RUBIO Last Admin: 09/23/20 09:14 Dose: Not Given Documented by: Heparin Sodium (Porcine) (Heparin 10,000 Units/10 Ml Vial) 2,500 units IV UD PRN PRN Reason: Dialysis Cath Heparin Flush Pantoprazole Sodium 40 mg/ (Sodium Chloride) 110 mls @ 330 mls/hr IV Q12 RUBIO Sodium Chloride () 250 mls @ 15 mls/hr IV .[id number] PRN PRN Reason: Saline Flush Sodium Chloride () 250 mls @ 15 mls/hr IV .[id number] PRN PRN Reason: Additional IVPB Infusion Melatonin (Melatonin 3 Mg Tablet) 3 mg PO QHS PRN PRN PRN Reason: INSOMNIA Ondansetron HCl (Ondansetron 4 Mg/2 Ml Vial) 4 mg IV Q8H PRN PRN PRN Reason: NAUSEA/VOMITING Prednisone (Prednisone 5 Mg Tablet) 2.5 mg PO 1200 RUBIO Prednisone (Prednisone 5 Mg Tablet) 5 mg PO BREAKFAST RUBIO Sodium Chloride (0.9% Saline Lock 10 Ml Syringe) 10 - 40 ml IV UD PRN PRN Reason: SALINE FLUSH Assessment/Plan All Active Problems (Last Reviewed 09/23/20 @ 04:[address] Marc Snow MD) Generalized weakness (Acute) Diarrhea (Acute) GI bleed (Acute) 65-year-old female with GI bleed 1. The patient is having diarrhea which seems melanotic and her anemia has been becoming worse since being in the hospital even. The patient's hemoglobin is more decreased and for some reason the patient's INR is becoming more elevated. Patient is not on Coumadin and I am unsure as to the reason for her elevated INR. Her LFTs are normal except for an elevated alkaline phosphatase. 2. I ordered a CT scan today with IV contrast and there was heterogeneous liver with a distended gallbladder but there was fluid around the liver and around the spleen. I am still unsure as to the etiology of all of her issues. I believe she has a bleeding gastric ulcer given the melena and the fact she is on aspirin and steroids with no PPI. She has been put on a PPI and she will remain n.p.o. or on clears until she has an EGD. I will allow the medical team to transfuse her as needed and plan for EGD tomorrow. If this does not reveal the bleeding source I will plan for colonoscopy Monday. I explained endoscopy in detail to the patient. I explained the risks including but not limited to stroke or heart attack with anesthesia, perforation of the GI tract, bleeding, infection. I explained that any of these could necessitate further emergency surgery. The patient understands and all questions were answered sufficiently. The patient wishes to proceed with procedure. Mamadou Fletcher MD Pager: [facility] [address] [place] [address] [address] [place] [address] Office:
--- NOTE | 2020-09-23 10:32 | NURSING ---
Addendum entered by Dafne Ovalles 09/23/20 13:06: second unit of PRBC completed by manager acquisition at 1230. Addendum entered by Dafne Ovalles 09/23/20 12:03: first unit of PRBC completed by manager acquisition at 1125. second unit of PRBC started with dialysis treatment at 1145. Original Note: first unit of PRBC started with dialysis treatment at 1030
[2020-09-23 11:19] LABS: Prothrombin Time (Protime)PT. 38.6 SECONDS (11.7-14.9)
--- NOTE | 2020-09-23 11:39 | PCM.CONS.R ---
Problem List (1) ESRD (end stage renal disease) on dialysis Status: Chronic Consultation - Renal 09/23/20 PCP/ Referring MD: Requesting physician: [] Primary care physician: Dr. Jabier Arboleda DO Reason for Consultation:: ESRD - History of Present Illness History of Present Illness: The patient is a 65 year old F Who was admitted to the hospital with complaints of diarrhea, melena. For her GI bleed. Hemoglobin has dropped by more than 2. since admission. Scheduled for upper GI endoscopy tomorrow. Her INR levels were somewhat high. She has known history of ESRD on hemodialysis on a Monday, Monday, Monday schedule. Has a tunneled dialysis catheter for access. currently getting blood transfusion. ROS is negative except above - Allergies Allergies: Allergies No Known Allergies Allergy (Verified 09/22/20 18:04) - Current Medications Current Medications: Current Medications Acetaminophen (Acetaminophen 500 Mg Tablet) 500 mg PO Q6H PRN PRN PRN Reason: Pain 1-10 or Fever Last Admin: 09/23/20 09:14 Dose: 500 mg Documented by: Alprazolam (Alprazolam 0.5 Mg Tablet) 1 mg PO TID PRN PRN PRN Reason: ANXIETY Fluticasone Propionate (Fluticasone 0.05% 1 [place] Nasal.Sry) 2 spray NASAL DAILY [facility] Last Admin: 09/23/20 09:14 Dose: Not Given Documented by: Heparin Sodium (Porcine) (Heparin 10,000 Units/10 Ml Vial) 2,500 units IV UD PRN PRN Reason: Dialysis Cath Heparin Flush Pantoprazole Sodium 40 mg/ (Sodium Chloride) 110 mls @ 330 mls/hr IV Q12 RUBIO Sodium Chloride () 250 mls @ 15 mls/hr IV .[id number] PRN PRN Reason: Saline Flush Sodium Chloride () 250 mls @ 15 mls/hr IV .[id number] PRN PRN Reason: Additional IVPB Infusion Melatonin (Melatonin 3 Mg Tablet) 3 mg PO QHS PRN PRN PRN Reason: INSOMNIA Ondansetron HCl (Ondansetron 4 Mg/2 Ml Vial) 4 mg IV Q8H PRN PRN PRN Reason: NAUSEA/VOMITING Prednisone (Prednisone 5 Mg Tablet) 2.5 mg PO 1200 RUBIO Prednisone (Prednisone 5 Mg Tablet) 5 mg PO BREAKFAST [facility] Last Admin: 09/23/20 10:55 Dose: Not Given Documented by: Sodium Chloride (0.9% Saline Lock 10 Ml Syringe) 10 - 40 ml IV UD PRN PRN Reason: SALINE FLUSH - Past Medical History Past Medical History (Chronic Problems): Chronic Problems (Last Reviewed 09/23/20 @ 04:[address] Marc Snow MD) ESRD (end stage renal disease) on dialysis (Chronic) Hyperkalemia (Chronic) Anemia (Chronic) Chronic renal failure (Chronic) NSTEMI (non-ST elevated myocardial infarction) (Chronic) Dialysis patient (Chronic) Elevated troponin (Chronic) Congestive heart failure (Chronic) Rheumatoid arthritis (Chronic) Amyloidosis (Chronic) CKD (chronic kidney disease) stage 4, GFR 15-29 ml/min (Chronic) Renal anasarca (Chronic) - Past Surgical History Surgical History: appendectomy, tonsillectomy, - - Left forearm AV fistula; tubal ligation - Social History Smoking Status: Never smoker - Family History Maternal History Items: - - Denies known maternal medical history including cardiac history. Paternal History Items: Diabetes, Heart Disease, - Review of Systems Constitutional: Denies: Chills, Fever, Weight Change HEENT: Denies: Head Aches, Sinus Congestion, Sinus Drainage Cardiovascular: Denies: Chest Pain, Palpitations Respiratory: Denies: Cough, Shortness of breath at rest, Sputum production Gastrointestinal: Denies: Abdominal Pain, Nausea, Vomiting Genitourinary: Denies: Dysuria Musculoskeletal: Denies: Joint Pain, Joint Tenderness Skin: Denies: Rash, Wounds Neurological: Denies: Numbness, Tingling, Focal weakness Psychiatric: Denies: Anxiety, Depression, Homicidal Ideations, Suicidal Ideations Hematologic/ Lymphatic: Denies: Easy Bruising, Easy Bleeding Patient Problems: Active and Suspected Problems (Last Reviewed 09/23/20 @ 04:[address] Marc Snow MD) Generalized weakness (Acute) Diarrhea (Acute) GI bleed (Acute) - Physical Exam Vitals/I&O's: Vital Signs Temp Pulse Resp BP Pulse Ox 97.8 F 92 18 114/73 96 09/23/20 08:20 09/23/20 08:20 09/23/20 08:20 09/23/20 08:20 09/23/20 08:20 Oxygen Delivery Method Room Air Weight: 82 kg Body Mass Index (BMI) 29.2 Finger Stick Blood Glucose 143 Intake and Output for Last 24 Hours 09/21/20 09/22/20 09/23/20 23:59 23:59 23:59 Intake Total 460 / 460 Balance 460 / 460 General: Alert, Oriented x3, Cooperative HEENT: Atraumatic, PERRLA, EOMI, Normocephalic Neck: Supple, No JVD, Negative Carotid Bruits Lungs: Clear to auscultation, Normal air movement Cardiovascular: Regular rate, No murmurs Abdomen: Bowel Sounds Present, Soft, Non Tender Extremities: No edema, Capillary Refill Less than 3 Seconds Skin: No rashes, No breakdown Musculoskeletal: No Tenderness to Palpation of Joints or Extremities Neurological: Cranial nerves II-XII grossly intact Psych/Mental Status: Normal Affect, Appropriate Microbiology Past 72 Hours 09/22/20 22:15 Stool Stool Lactoferrin - Final 09/22/20 22:15 Stool Enteric Bacteriology - Final 09/22/20 22:15 Stool C. difficile GDH Antigen & Toxins - Final 09/22/20 22:15 Stool C. difficile DNA Amplification - Final 09/22/20 22:15 Stool Stool Occult Blood (ANA) - Final Occult Blood Positive Laboratory Results 09/22/20 18:40: WBC 9.1, RBC 3.07 L, Hgb 8.7 L, Hct 28.7 L, MCV 93.5, MCH 28.3, MCHC 30.3 L, RDW Std Deviation 59.6 H, RDW Coeff of Mika 17.6 H, Plt Count 581 H, MPV 10.4, Immature Gran % (Auto) 0.300, Neut % (Auto) 83.9 H, Lymph % (Auto) 9.4 L, [place] % (Auto) 6.3, Eos % (Auto) 0.1, Baso % (Auto) 0.0, Absolute Neuts (auto) 7.6, Absolute Lymphs (auto) 0.85, Nucleated RBC % 0.2 09/22/20 18:40: PT 33.1 H, INR 3.3, APTT 57.5 H 09/22/20 18:40: Sodium 136, Potassium 5.1, Chloride 99, Carbon Dioxide 30.0, Anion Gap 7, BUN 34 H, Creatinine 4.20 H, Estim Creat Clear Calc 12.50, Est GFR (MDRD) Af Amer 14 L, Est GFR (MDRD) Non-Af 11 L, BUN/Creatinine Ratio 8.1 L, Glucose 106, Calcium 8.7, Total Bilirubin 0.50, AST 32, ALT 28, Alkaline Phosphatase 531 H, Total Protein 6.2 L, Albumin 2.2 L, Globulin 4.0, Albumin/Globulin Ratio 0.6 L 09/22/20 18:40: Blood Type A POSITIVE, Antibody Screen NEGATIVE 09/22/20 18:40: Crossmatch See Detail 09/22/20 20:55: PT Cancelled, INR Cancelled 09/22/20 22:20: PT 32.9 H, INR 3.3 09/23/20 01:34: Hgb 7.3 L, Hct 24.1 L 09/23/20 06:40: PT 39.3 H, INR 4.1 H* 09/23/20 06:40: Sodium 136, Potassium 4.8, Chloride 100, Carbon Dioxide 29.0, Anion Gap 7, BUN 42 H, Creatinine 4.64 H, Estim Creat Clear Calc 11.32, Est GFR (MDRD) Af Amer 12 L, Est GFR (MDRD) Non-Af 10 L, BUN/Creatinine Ratio 9.1 L, Glucose 69 L, Calcium 8.5 09/23/20 06:40: Hgb 6.8 L, Hct 22.6 L 09/23/20 06:40: Total Bilirubin 0.60, Direct Bilirubin 0.25, AST 22, ALT 20, Alkaline Phosphatase 431 H, Total Protein 4.9 L, Albumin 1.7 L, Globulin 3.2 09/23/20 10:55: PT 38.6 H, INR 4.0 H* Current Medications Acetaminophen (Acetaminophen 500 Mg Tablet) 500 mg PO Q6H PRN PRN PRN Reason: Pain 1-10 or Fever Last Admin: 09/23/20 09:14 Dose: 500 mg Documented by: Alprazolam (Alprazolam 0.5 Mg Tablet) 1 mg PO TID PRN PRN PRN Reason: ANXIETY Fluticasone Propionate (Fluticasone 0.05% 1 [place] Nasal.Sry) 2 spray NASAL DAILY RUBIO Last Admin: 02/03/21 09:14 Dose: Not Given Documented by: Heparin Sodium (Porcine) (Heparin 10,000 Units/10 Ml Vial) 2,500 units IV UD PRN PRN Reason: Dialysis Cath Heparin Flush Pantoprazole Sodium 40 mg/ (Sodium Chloride) 110 mls @ 330 mls/hr IV Q12 RBUIO Sodium Chloride () 250 mls @ 15 mls/hr IV .[id number] PRN PRN Reason: Saline Flush Sodium Chloride () 250 mls @ 15 mls/hr IV .[id number] PRN PRN Reason: Additional IVPB Infusion Melatonin (Melatonin 3 Mg Tablet) 3 mg PO QHS PRN PRN PRN Reason: INSOMNIA Ondansetron HCl (Ondansetron 4 Mg/2 Ml Vial) 4 mg IV Q8H PRN PRN PRN Reason: NAUSEA/VOMITING Prednisone (Prednisone 5 Mg Tablet) 2.5 mg PO 1200 RUBIO Prednisone (Prednisone 5 Mg Tablet) 5 mg PO BREAKFAST RUBIO Last Admin: 09/23/20 10:55 Dose: Not Given Documented by: Sodium Chloride (0.9% Saline Lock 10 Ml Syringe) 10 - 40 ml IV UD PRN PRN Reason: SALINE FLUSH Assessment/Plan All Active Problems (Last Reviewed 09/23/20 @ 04:[address] Marc Snow MD) Generalized weakness (Acute) Diarrhea (Acute) GI bleed (Acute) End-stage renal disease. Dialysis today. Seen on dialysis. try for about 3-4 L. Anemia. Due to ESRD and now GI bleed. Getting blood transfusion today.
--- NOTE | 2020-09-23 12:11 | PN_ITS ---
<Briseida Raymundo DOLPHIN TRAINER - Last Filed: 09/23/20 12:30> Patient Problems: Active and Suspected Problems (Last Reviewed 09/23/20 @ 04:[address] Marc castro MD) Generalized weakness (Acute) Diarrhea (Acute) GI bleed (Acute) Subjective: Patient seen and examined. Reports ongoing dark stools with one episode this morning which appeared red in color. Denies lightheadedness, dizziness. Denies other associated symptoms. Denies abdominal pain. States she had similar episode of diarrhea/bleeding in May last year, she was recommended outpatient scopes however she never completed these. Currently undergoing dialysis. - Physical Exam Vitals/I&O's: Vital Signs Temp Pulse Resp BP Pulse Ox 97.8 F 92 18 114/73 96 09/23/20 08:20 09/23/20 08:20 09/23/20 08:20 09/23/20 08:20 09/23/20 08:20 Oxygen Delivery Method Room Air Weight: 180 lb 12.465 oz Body Mass Index (BMI) 29.2 Finger Stick Blood Glucose 143 Intake and Output for Last 24 Hours 09/21/20 09/22/20 09/23/20 23:59 23:59 23:59 Intake Total 460 / 460 Balance 460 / 460 General: Alert, Oriented x3, Cooperative HEENT: Atraumatic, PERRLA, EOMI, Normocephalic Neck: Supple, No JVD, Negative Carotid Bruits Lungs: Clear to auscultation, Normal air movement Cardiovascular: Regular rate, No murmurs Abdomen: Bowel Sounds Present, Soft, Non Tender Extremities: No clubbing, No cyanosis, No edema, Capillary Refill Less than 3 Seconds Skin: No rashes, No breakdown Musculoskeletal: No Tenderness to Palpation of Joints or Extremities Neurological: Cranial nerves II-XII grossly intact, Neuro grossly intact Psych/Mental Status: Normal Affect, Appropriate Microbiology Past 72 Hours 09/22/20 22:15 Stool Stool Lactoferrin - Final 09/22/20 22:15 Stool Enteric Bacteriology - Final 09/22/20 22:15 Stool C. difficile GDH Antigen & Toxins - Final 09/22/20 22:15 Stool C. difficile DNA Amplification - Final 09/22/20 22:15 Stool Stool Occult Blood (ANA) - Final Occult Blood Positive Laboratory Results 09/22/20 18:40: WBC 9.1, RBC 3.07 L, Hgb 8.7 L, Hct 28.7 L, MCV 93.5, MCH 28.3, MCHC 30.3 L, RDW Std Deviation 59.6 H, RDW Coeff of Mika 17.6 H, Plt Count 581 H, MPV 10.4, Immature Gran % (Auto) 0.300, Neut % (Auto) 83.9 H, Lymph % (Auto) 9.4 L, [place] % (Auto) 6.3, Eos % (Auto) 0.1, Baso % (Auto) 0.0, Absolute Neuts (auto) 7.6, Absolute Lymphs (auto) 0.85, Nucleated RBC % 0.2 09/22/20 18:40: PT 33.1 H, INR 3.3, APTT 57.5 H 09/22/20 18:40: Sodium 136, Potassium 5.1, Chloride 99, Carbon Dioxide 30.0, Anion Gap 7, BUN 34 H, Creatinine 4.20 H, Estim Creat Clear Calc 12.50, Est GFR (MDRD) Af Amer 14 L, Est GFR (MDRD) Non-Af 11 L, BUN/Creatinine Ratio 8.1 L, Glucose 106, Calcium 8.7, Total Bilirubin 0.50, AST 32, ALT 28, Alkaline Phosphatase 531 H, Total Protein 6.2 L, Albumin 2.2 L, Globulin 4.0, A lbumin/Globulin Ratio 0.6 L 09/22/20 18:40: Blood Type A POSITIVE, Antibody Screen NEGATIVE 09/22/20 18:40: Crossmatch See Detail 09/22/20 20:55: PT Cancelled, INR Cancelled 09/22/20 22:20: PT 32.9 H, INR 3.3 09/23/20 01:34: Hgb 7.3 L, Hct 24.1 L 09/23/20 06:40: PT 39.3 H, INR 4.1 H* 09/23/20 06:40: Sodium 136, Potassium 4.8, Chloride 100, Carbon Dioxide 29.0, Anion Gap 7, BUN 42 H, Creatinine 4.64 H, Estim Creat Clear Calc 11.32, Est GFR (MDRD) Af Amer 12 L, Est GFR (MDRD) Non-Af 10 L, BUN/Creatinine Ratio 9.1 L, Glucose 69 L, Calcium 8.5 09/23/20 06:40: Hgb 6.8 L, Hct 22.6 L 09/23/20 06:40: Total Bilirubin 0.60, Direct Bilirubin 0.25, AST 22, ALT 20, Alkaline Phosphatase 431 H, Total Protein 4.9 L, Albumin 1.7 L, Globulin 3.2 09/23/20 10:55: PT 38.6 H, INR 4.0 H* Current Medications Acetaminophen (Acetaminophen 500 Mg Tablet) 500 mg PO Q6H PRN PRN PRN Reason: Pain 1-10 or Fever Last Admin: 09/23/20 09:14 Dose: 500 mg Documented by: Alprazolam (Alprazolam 0.5 Mg Tablet) 1 mg PO TID PRN PRN PRN Reason: ANXIETY Fluticasone Propionate (Fluticasone 0.05% 1 [place] Nasal.Sry) 2 spray NASAL DAILY RUBIO Last Admin: 09/23/20 09:14 Dose: Not Given Documented by: Heparin Sodium (Porcine) (Heparin 10,000 Units/10 Ml Vial) 2,500 units IV UD PRN PRN Reason: Dialysis Cath Heparin Flush Pantoprazole Sodium 40 mg/ (Sodium Chloride) 110 mls @ 330 mls/hr IV Q12 RUBIO Sodium Chloride () 250 mls @ 15 mls/hr IV .[id number] PRN PRN Reason: Saline Flush Sodium Chloride () 250 mls @ 15 mls/hr IV .[id number] PRN PRN Reason: Additional IVPB Infusion Melatonin (Melatonin 3 Mg Tablet) 3 mg PO QHS PRN PRN PRN Reason: INSOMNIA Ondansetron HCl (Ondansetron 4 Mg/2 Ml Vial) 4 mg IV Q8H PRN PRN PRN Reason: NAUSEA/VOMITING Prednisone (Prednisone 5 Mg Tablet) 2.5 mg PO 1200 RUBIO Prednisone (Prednisone 5 Mg Tablet) 5 mg PO BREAKFAST [facility] Last Admin: 09/23/20 10:55 Dose: Not Given Documented by: Sodium Chloride (0.9% Saline Lock 10 Ml Syringe) 10 - 40 ml IV UD PRN PRN Reason: SALINE FLUSH Medical Necessity - Tobacco Use Smoking Status: Never smoker Assessment/Plan All Active Problems (Last Reviewed 09/23/20 @ 04:[address] Marc Snow MD) Generalized weakness (Acute) Diarrhea (Acute) GI bleed (Acute) 1. Acute blood loss anemia, secondary to GI bleed-persistent diarrhea. C. difficile antigen positive however C. difficile toxin negative. Stool for occult blood positive. 2 units PRBC ordered. IV PPI. Plan for EGD 09/24/2020. If no evidence of bleeding found, follow with C-scope on Monday. CT of abdomen pelvis shows heterogeneous enhancement of the liver with multiple hepatic cysts. Small amount of fluid in the pelvis. Mildly distended gallbladder with pericholecystic fluid, sigmoid diverticulosis, nonspecific bilateral perinephric stranding. General surgery following. Patient has been admitted previously for suspected GI bleed which stabilized and was recommended outpatient scopes which she has not completed. Trend H&H. 2. Elevated INR-Not on Coumadin. Amyloidosis can be associated with factor X deficiency which may lead to elevated INR/PTT. Trend INR/PTT. 3. 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 4. Chronic heart failure with preserved ejection fraction-Echo August 2019 demonstrated EF 55 to 60%, mild to moderate mitral valve insufficiency, mild tricuspid valve insufficiency, pulmonary artery systolic pressure 54 mmHg. 5. Hypertension-metoprolol and hold due to hypotension. 6. AA Amyloidosis-with renal involvement, biopsy positive. 7. Rheumatoid arthritis-on low dose prednisone. 9. Depression/anxiety-continue PRN Xanax regimen. Recommend addition of SSRI which can be discussed as outpatient. DVT prophylaxis-SCDs, pharmacologic prophylaxis contraindicated This patient was seen by COURTNEY Ingram under the supervision of Dr. Smith. <Marcell Smith F - Last Filed: 09/23/20 14:43> - Physical Exam Vitals/I&O's: Vital Signs Temp Pulse Resp BP Pulse Ox 97.8 F 97 18 114/73 96 09/23/20 08:20 09/23/20 12:01 09/23/20 08:20 09/23/20 08:20 09/23/20 08:20 Oxygen Delivery Method Room Air Weight: 180 lb 12.465 oz Body Mass Index (BMI) 29.2 Finger Stick Blood Glucose 143 Intake and Output for Last 24 Hours 09/21/20 09/22/2021 23:59 23:59 23:59 Intake Total 1220 / 1220 Output Total 0 / 0 Balance 1220 / 1220 Microbiology Past 72 Hours 09/22/20 22:15 Stool Stool Lactoferrin - Final 09/22/20 22:15 Stool Enteric Bacteriology - Final 09/22/20 22:15 Stool C. difficile GDH Antigen & Toxins - Final 09/22/20 22:15 Stool C. difficile DNA Amplification - Final 09/22/20 22:15 Stool Stool Occult Blood (ANA) - Final Occult Blood Positive Laboratory Results 09/22/20 18:40: WBC 9.1, RBC 3.07 L, Hgb 8.7 L, Hct 28.7 L, MCV 93.5, MCH 28.3, MCHC 30.3 L, RDW Std Deviation 59.6 H, RDW Coeff of Mika 17.6 H, Plt Count 581 H, MPV 10.4, Immature Gran % (Auto) 0.300, Neut % (Auto) 83.9 H, Lymph % (Auto) 9.4 L, [place] % (Auto) 6.3, Eos % (Auto) 0.1, Baso % (Auto) 0.0, Absolute Neuts (auto) 7.6, Absolute Lymphs (auto) 0.85, Nucleated RBC % 0.2 09/22/20 18:40: PT 33.1 H, INR 3.3, APTT 57.5 H 09/22/20 18:40: Sodium 136, Potassium 5.1, Chloride 99, Carbon Dioxide 30.0, Anion Gap 7, BUN 34 H, Creatinine 4.20 H, Estim Creat Clear Calc 12.50, Est GFR (MDRD) Af Amer 14 L, Est GFR (MDRD) Non-Af 11 L, BUN/Creatinine Ratio 8.1 L, Glucose 106, Calcium 8.7, Total Bilirubin 0.50, AST 32, ALT 28, Alkaline Phosphatase 531 H, Total Protein 6.2 L, Albumin 2.2 L, Globulin 4.0, Albumin/Globulin Ratio 0.6 L 09/22/20 18:40: Blood Type A POSITIVE, Antibody Screen NEGATIVE 09/22/20 18:40: Crossmatch See Detail 09/22/20 20:55: PT Cancelled, INR Cancelled 09/22/20 22:20: PT 32.9 H, INR 3.3 09/23/20 01:34: Hgb 7.3 L, Hct 24.1 L 09/23/20 06:40: PT 39.3 H, INR 4.1 H* 09/23/20 06:40: Sodium 136, Potassium 4.8, Chloride 100, Carbon Dioxide 29.0, Anion Gap 7, BUN 42 H, Creatinine 4.64 H, Estim Creat Clear Calc 11.32, Est GFR (MDRD) Af Amer 12 L, Est GFR (MDRD) Non-Af 10 L, BUN/Creatinine Ratio 9.1 L, Glucose 69 L, Calcium 8.5 09/23/20 06:40: Hgb 6.8 L, Hct 22.6 L 09/23/20 06:40: Total Bilirubin 0.60, Direct Bilirubin 0.25, AST 22, ALT 20, Alkaline Phosphatase 431 H, Total Protein 4.9 L, Albumin 1.7 L, Globulin 3.2 09/23/20 10:55: PT 38.6 H, INR 4.0 H* 09/23/20 10:55: APTT 67.0 H Current Medications Acetaminophen (Acetaminophen 500 Mg Tablet) 500 mg PO Q6H PRN PRN PRN Reason: Pain 1-10 or Fever Last Admin: 09/23/20 09:14 Dose: 500 mg Documented by: Alprazolam (Alprazolam 0.5 Mg Tablet) 1 mg PO TID PRN PRN PRN Reason: ANXIETY Fluticasone Propionate (Fluticasone 0.05% 1 [place] Nasal.Sry) 2 spray NASAL DAILY [facility] Last Admin: 09/23/20 09:14 Dose: Not Given Documented by: Heparin Sodium (Porcine) (Heparin 10,000 Units/10 Ml Vial) 2,500 units IV UD PRN PRN Reason: Dialysis Cath Heparin Flush Pantoprazole Sodium 40 mg/ (Sodium Chloride) 110 mls @ 330 mls/hr IV Q12 [facility] Last Admin: 09/23/20 14:05 Dose: 330 mls/hr Documented by: Sodium Chloride () 250 mls @ 15 mls/hr IV .[id number] PRN PRN Reason: Saline Flush Sodium Chloride () 250 mls @ 15 mls/hr IV .[id number] PRN PRN Reason: Additional IVPB Infusion Melatonin (Melatonin 3 Mg Tablet) 3 mg PO QHS PRN PRN PRN Reason: INSOMNIA Ondansetron HCl (Ondansetron 4 Mg/2 Ml Vial) 4 mg IV Q8H PRN PRN PRN Reason: NAUSEA/VOMITING Last Admin: 09/23/20 14:15 Dose: 4 mg Documented by: Prednisone (Prednisone 5 Mg Tablet) 2.5 mg PO 1200 RUBIO Last Admin: 09/23/20 14:05 Dose: 2.5 mg Documented by: Prednisone (Prednisone 5 Mg Tablet) 5 mg PO BREAKFAST RUBIO Last Admin: 09/23/20 10:55 Dose: Not Given Documented by: Sodium Chloride (0.9% Saline Lock 10 Ml Syringe) 10 - 40 ml IV UD PRN PRN Reason: SALINE FLUSH Last Admin: 09/23/20 14:05 Dose: 20 ml Documented by: Addendum: Dr. Smith I personally examined the patient and reviewed the chart. I agree with the above. 65-year-old female presented from home with diarrhea and dark stools. It is very similar to her previous episode in May 2020. She denies any significant abdominal pain at this time, however her hemoglobin is down to 6.8 so she will be transfused 2 units with dialysis. Also she continues to have C. difficile antigen and DNA but no toxin therefore unlikely to have a C. difficile infection at this time we will continue to monitor white count and fever curve. She does have a history of amyloidosis which apparently can increase INR however in May, her INR was normal therefore will obtain hepatitis panel. Plan for EGD in the morning. Inpatient E&M: [id number] Subs Hosp L2
--- NOTE | 2020-09-23 13:17 | NURSING ---
RN CM Assessment Introduced role of RN CM to patient.? Patient is alert, oriented and able?to participate in RN CM Assessment. ?Care providers, pharmacy, and demographics verified. Admit Dx: Acute Blood Loss Anemia Re-Admit: No Barriers/Issues: None. Patient gets HD M/W/F at [facility], Chair start time 10am-2pm, gets there by hired chair car driver. PCP: Jabier Arboleda Specialists: Davina- Asher. Used to see a [facility] for RA. Preferred Pharmacy: Need verified with patient- [facility] or [facility], [email or web address] Insurance: AA Rx Benefit: No, may need medication discount card on DC if Dc'd on medications.? LNOK: Andrew Centeno LW/HPOA: None. Provided advanced directive information and given social media content specialist rack card. States would like to complete advanced directives on this admission- social media content specialist Tati Ramirez made aware. Living Arrangements:? Lives with her and 34yo dtr in a 2SH. 2 steps up to ground level where bedroom is. No steps to enter home. ADL?s: Independent with ambulation and ADLs except Dtr cooks/prepares meals Transportation: Hired chair car driver and same upon DC DME: None HHC: None SNF: None Goal: Home and does not think will have any needs. Receiving HD currently. Denies any issues, concerns, or questions with DC planning at this time. Aware RNCM remains available for any needs that should arise. DC PLAN: Home with no anticipated needs identified at this time. OT eval- ambulated 40ft/steady and not recc. additional therapy. ROMAN Jorge
[2020-09-23] MEDS: predniSONE 5 MG Tablet 2.5 MG PO (14:05)
[2020-09-23] MEDS: 0.9% Saline Lock 10 ML Syringe IV ×2 (14:05→22:28)
[2020-09-23] MEDS: Ondansetron 4 MG/2 ML Vial IV (14:15)
--- NOTE | 2020-09-23 14:32 | CHAPLAIN ---
Type of Pastoral Visit _x__ Initial Visit ___ Follow-up Visit ___ On-call Visit ___ General Patient Visit ___ Spiritual Assessment ___ Family Conference ___ Bereavement ___ Rapid Response ___ Code Blue ___ Other (describe below) Pastoral Care Referral From _x__ Patient ___ Family ___ Nurse ___ Physician ___ Wash Oil Pump Operator ___ Con[employer] Freight ___ Other (describe below) Sacrament/Intervention ___ Active listening ___ Anointing ___ Anabaptist ___ Bereavement ___ Communion ___ Rose exploration ___ ___ Life review _x__ Prayer ___ Reconciliation ___ Sacrament of Sick _x__ Supportive presence ___ Wedding ___ Other (describe below) Pastoral Comments
--- NOTE | 2020-09-23 15:00 | CASEMGMT ---
Social Work Completed advanced directives with patient. Patient named , Andrew Centeno, as HCPOA. Copies placed on chart. MELISSA ParraW
[2020-09-23 15:15] LABS: Hematocrit 31.1 % (37-47); Hemoglobin 9.8 g/dL (12.0-15.0)
--- NOTE | 2020-09-23 16:43 | DIALYSIS ---
HD x 3 hours and 45 minutes complete. Tolerated tx well. UF of 2700ml. Pt received 2 units of PRBC's during tx. Used right chest wall dialysis catheter. Lumens closed with heparin per fill volume. Caps placed. Dressing is dry and intact. See tx sheet for more details. Report was given to BELKYS Mireles.
--- NOTE | 2020-09-23 18:42 | NURSING ---
group cortext sent to Dr. Sin and : RapidCovid called as positive. asking if want PCR covid ordered. aware per is asymptomatic and doesn't need isolation. aware per automatic screwmaker she states per her chronic dialysis charts pt was tested positive 06/15/20 then negative 07/11/20, and negative 07/17/20. aware per Dr. Sin and Dr. Fletcher to order PCR test for surgery purposes. order placed. also informed Dr. sin that per dialysis nurse this will impact discharge and her ability to go to her normal chronic dialysis center- will inform oncoming charge nurse to address with cm/sw tomorrow.
--- NOTE | 2020-09-23 20:05 | NURSING ---
reviewed and agree with documentation by TE Horne
[2020-09-23 21:10] LABS: Hematocrit 30.8 % (37-47); Hemoglobin 9.7 g/dL (12.0-15.0)
[2020-09-23] MEDS: MELATONIN 3 MG TABLET PO (23:32)
[2020-09-23] MEDS: ALPRAZolam 0.5 MG Tablet 1 MG PO (23:32)
[2020-09-24] VITALS (20 sets, daily range): BP systolic 80–130; BP diastolic 42–83; PULSE 84–98; RESP 16–18; TEMP 36.5–36.9; O2SAT 93–100; BMI 29.2
--- NOTE | 2020-09-24 04:04 | EKG12_ITS ---
Test Reason : PRE-OP Blood Pressure : / mmHG Vent. Rate : 094 BPM Atrial Rate : 094 BPM P-R Int : 160 ms QRS Dur : 102 ms QT Int : 394 ms P-R-T Axes : 081 -58 123 degrees QTc Int : 492 ms Sinus rhythm with Blocked Premature atrial complexes Left anterior fascicular block T wave abnormality, consider lateral ischemia Abnormal ECG Confirmed by ESTER LOZANO, MARCELLE ([id number]), restaurant expeditor WHIT GRAHAM ([id number]) on 09/25/2020 10:49:33 AM Referred By: JERO Confirmed By:MARCELLE NORMAN MD
[2020-09-24 06:41] LABS: Hematocrit 30.1 % (37-47); Hemoglobin 9.5 g/dL (12.0-15.0); Mean Corp Hgb Conc 31.6 g/dL (32-36); Mean Corpuscular Hgb 28.2 pg (27.0-32.0); Mean Corpuscular Volume 89.3 fL (81-99); Mean Platelet Vol. 9.9 fl (6.2-12.0); Platelet Count 475 K/mm3 (150-450); RBC Distribution Width CV 16.7 % (11.6-14.6); RBC Distribution Width SD 54.2 fl (35.1-43.9); Red Blood Count 3.37 M/mm3 (4.2-5.4); White Blood Count 14.1 K/mm3 (4.4-11.0)
[2020-09-24 06:50] LABS: Partial Thromboplast Time 76.5 Seconds (24.1-36.2)
[2020-09-24 06:51] LABS: International Normalized Ratio 3.8
--- NOTE | 2020-09-24 06:57 | PCM.PN.SRG ---
Patient Problems: Active and Suspected Problems (Last Reviewed 09/23/20 @ 04:[address] Marc Snow MD) Generalized weakness (Acute) Diarrhea (Acute) GI bleed (Acute) Subjective: Patient reports she is having discomfort in the abdomen but it is diffuse. She is not localized to any quadrant. She had no bowel movements overnight and no nausea or vomiting. - Physical Exam Vitals/I&O's: Vital Signs Temp Pulse Resp BP Pulse Ox 98.4 F 95 18 113/63 95 09/24/20 06:18 09/24/20 06:18 09/24/20 06:18 09/24/20 06:18 09/24/20 06:18 Oxygen Delivery Method Room Air Weight: 180 lb 12.465 oz Body Mass Index (BMI) 29.2 Finger Stick Blood Glucose 143 Intake and Output for Last 24 Hours 09/22/20 09/23/20 09/24/20 23:59 23:59 23:59 Intake Total 2450 / 2450 100 / 100 Output Total 0 / 0 50 / 50 Balance 2450 / 2450 50 / 50 General: Alert, Oriented x3 Abdomen: Soft, Non-Distended, Tender - Mild tenderness throughout the abdomen with no Franklin sign or right upper quadrant specific tenderness Microbiology Past 72 Hours 09/23/20 17:55 Mucosa - Nose SARS-CoV-2 Antigen (Rapid) - Final SARS-CoV-2 (COVID 19) 09/22/20 22:15 Stool Stool Lactoferrin - Final 09/22/20 22:15 Stool Enteric Bacteriology - Final 09/22/20 22:15 Stool C. difficile GDH Antigen & Toxins - Final 09/22/20 22:15 Stool C. difficile DNA Amplification - Final 09/22/20 22:15 Stool Stool Occult Blood (ANA) - Final Occult Blood Positive Laboratory Results 09/22/20 18:40: Crossmatch See Detail 09/23/20 06:40: PT 39.3 H, INR 4.1 H* 09/23/20 06:40: Sodium 136, Potassium 4.8, Chloride 100, Carbon Dioxide 29.0, Anion Gap 7, BUN 42 H, Creatinine 4.64 H, Estim Creat Clear Calc 11.32, Est GFR (MDRD) Af Amer 12 L, Est GFR (MDRD) Non-Af 10 L, BUN/Creatinine Ratio 9.1 L, Glucose 69 L, Calcium 8.5 09/23/20 06:40: Hgb 6.8 L, Hct 22.6 L 09/23/20 06:40: Total Bilirubin 0.60, Direct Bilirubin 0.25, AST 22, ALT 20, Alkaline Phosphatase 431 H, Total Protein 4.9 L, Albumin 1.7 L, Globulin 3.2 09/23/20 10:55: PT 38.6 H, INR 4.0 H* 09/23/20 10:55: APTT 67.0 H 09/23/20 15:00: Hgb 9.8 L, Hct 31.1 L 09/23/20 15:08: Hepatitis A IgM Ab Pending, Hepatitis A Ab Total Pending, Hep Bs Antigen Pending, Hep B Core Total Ab Pending, Hep B Core IgM Ab Pending 09/23/20 20:25: COVID-19 (KA[place]HIK) Not Detected 09/23/20 21:00: Hgb 9.7 L, Hct 30.8 L 09/24/20 06:15: WBC 14.1 H, RBC 3.37 L, Hgb 9.5 L, Hct 30.1 L, MCV 89.3, MCH 28.2, MCHC 31.6 L, RDW Std Deviation 54.2 H, RDW Coeff of Mika 16.7 H, Plt Count 475 H, MPV 9.9 09/24/20 06:15: Sodium Pending, Potassium Pending, Chloride Pending, Carbon Dioxide Pending, Anion Gap Pending, BUN Pending, Creatinine Pending, Est GFR (MDRD) Af Amer Pending, Est GFR (MDRD) Non-Af Pending, BUN/Creatinine Ratio Pending, Glucose Pending, Calcium Pending 09/24/20 06:15: PT 37.0 H, INR 3.8 H*, APTT 76.5 H Current Medications Acetaminophen (Acetaminophen 500 Mg Tablet) 500 mg PO Q6H PRN PRN PRN Reason: Pain 1-10 or Fever Last Admin: 09/23/20 17:53 Dose: 500 mg Documented by: Alprazolam (Alprazolam 0.5 Mg Tablet) 1 mg PO TID PRN PRN PRN Reason: ANXIETY Last Admin: 09/23/20 23:32 Dose: 1 mg Documented by: Fluticasone Propionate (Fluticasone 0.05% 1 [place] Nasal.Sry) 2 spray NASAL DAILY [facility] Last Admin: 09/23/20 09:14 Dose: Not Given Documented by: Heparin Sodium (Porcine) (Heparin 10,000 Units/10 Ml Vial) 2,500 units IV UD PRN PRN Reason: Dialysis Cath Heparin Flush Pantoprazole Sodium 40 mg/ (Sodium Chloride) 110 mls @ 330 mls/hr IV Q12 [facility] Last Infusion: 09/23/20 22:48 Dose: Infused Documented by: Sodium Chloride () 250 mls @ 15 mls/hr IV .[id number] PRN PRN Reason: Saline Flush Sodium Chloride () 250 mls @ 15 mls/hr IV .[id number] PRN PRN Reason: Additional IVPB Infusion Melatonin (Melatonin 3 Mg Tablet) 3 mg PO QHS PRN PRN PRN Reason: INSOMNIA Last Admin: 09/23/20 23:32 Dose: 3 mg Documented by: Ondansetron HCl (Ondansetron 4 Mg/2 Ml Vial) 4 mg IV Q8H PRN PRN PRN Reason: NAUSEA/VOMITING Last Admin: 09/23/20 14:15 Dose: 4 mg Documented by: Prednisone (Prednisone 5 Mg Tablet) 2.5 mg PO 1200 [facility] Last Admin: 09/23/20 14:05 Dose: 2.5 mg Documented by: Prednisone (Prednisone 5 Mg Tablet) 5 mg PO BREAKFAST [facility] Last Admin: 09/23/20 10:55 Dose: Not Given Documented by: Sodium Chloride (0.9% Saline Lock 10 Ml Syringe) 10 - 40 ml IV UD PRN PRN Reason: SALINE FLUSH Last Admin: 09/23/20 22:28 Dose: 10 ml Documented by: Medical Necessity - Tobacco Use Smoking Status: Never smoker Assessment/Plan All Active Problems (Last Reviewed 09/23/20 @ 04:[address] Marc Snow MD) Generalized weakness (Acute) Diarrhea (Acute) GI bleed (Acute) 65-year-old female with GI bleed and elevated INR I am unsure as to the reason for the elevated INR and I did order a CT scan with IV contrast. It showed heterogeneous pickup of contrast in the liver with some dilation of the gallbladder. I am doubtful that this is gallbladder in etiology. I believe there is some sort of hepatic issue going on as there is fluid around the liver and the spleen. In this case when there is something going out of liver there would be abnormal thickening of the gallbladder wall as well as pericholecystic fluid and an abnormal HIDA if that were to be ordered. Patient does have an elevated white count this morning. Her hemoglobin did respond to transfusion. I am planning on starting with an EGD this morning to see if she has a peptic ulcer disease or gastric ulcer. Mamadou Fletcher MD Pager: [facility] [address] [place] [address], [address] [place] [address] Office:
[2020-09-24 07:18] LABS: Anion Gap 7 (5-15); BUN 22 mg/dL (7-18); BUN/Creat Ratio 8.3 RATIO (10-20); Calcium,Total 8.3 mg/dL (8.5-10.1); Chloride 93 mmol/L (98-107); Creatinine, Serum 2.65 mg/dL (0.55-1.02); EST Glomerular Filtration Rate 19 mL/min (>60); Est Glom Filt Rate - Afr Amer 23 mL/min (>60); Estimated Creatinine Clearance 19.81 ml/min; Glucose 63 mg/dL (74-106); Potassium 4.4 mmol/L (3.5-5.1); Sodium Level 131 mmol/L (136-145)
--- NOTE | 2020-09-24 08:22 | OP.CCLET_ITS ---
09/24/2020 Jabier Arboleda Re : Upper GI endoscopy procedure for Nicky Centeno Dear Robles This procedure was performed on September. My impressions and recommendations are as follows: Impressions : - Normal esophagus. - Chronic gastritis with hemorrhage. - Normal examined duodenum. - No specimens collected. Recommendations : - [facility] to [facility]. - Advance diet as tolerated. - Continue present medications. - Use sucralfate tablets 1 gram PO QID. My findings are described in the full procedure note, which is enclosed. If I can be of further assistance, please feel free to contact me at Doctor phone number(s): , Work: . Sincerely, Mamadou Fletcher MD 09/24/2020 8:22:09 AM This report has been signed electronically.
--- NOTE | 2020-09-24 08:22 | OP.EGD_ITS ---
Patient Name: Nicky Centeno Procedure Date: 09/24/2020 7:15 AM Date of : 1955 Age: 65 Procedure: Upper GI endoscopy Indications: Generalized abdominal pain, Melena Providers: Mamadou Fletcher MD Medicines: Monitored Anesthesia Care Patient Profile: This is a 65 year old female. Refer to note in patient chart for documentation of history and physical. Complications: No immediate complications. Estimated blood loss: Minimal. Procedure: Pre-Anesthesia Assessment: - Prior to the procedure, a History and Physical was performed, and patient medications and allergies were reviewed. The patient's tolerance of previous anesthesia was also reviewed. The risks and benefits of the procedure and the sedation options and risks were discussed with the patient. All questions were answered, and informed consent was obtained. Prior Anticoagulants: The patient has taken aspirin, last dose was 1 day prior to procedure. After reviewing the risks and benefits, the patient was deemed in satisfactory condition to undergo the procedure. After obtaining informed consent, the endoscope was passed under direct vision. Throughout the procedure, the patient's blood pressure, pulse, and oxygen saturations were monitored continuously. The gastroscope was introduced through the mouth, and advanced to the second part of duodenum. The upper GI endoscopy was accomplished without difficulty. The patient tolerated the procedure well. Scope In: 8:11:49 AM Scope Out: 8:15:49 AM Total Procedure Duration Time 0 hours 4 minutes 0 seconds Findings: The esophagus was normal. Diffuse moderate inflammation with hemorrhage characterized by adherent blood was found in the stomach. The examined duodenum was normal. Impression: - Normal esophagus. - Chronic gastritis with hemorrhage. - Normal examined duodenum. - No specimens collected. Recommendation: - Return patient to [facility] for [facility] care. - Advance diet as tolerated. - Continue present medications. - Use sucralfate tablets 1 gram PO QID. Procedure Code(s): --- Professional --- 96892, Esophagogastroduodenoscopy, flexible, transoral; diagnostic, including collection of specimen(s) by brushing or washing, when performed (separate procedure) Diagnosis Code(s): --- Professional --- K29.51, Unspecified chronic gastritis with bleeding R10.84, Generalized abdominal pain K92.1, Melena (includes Hematochezia) CPT copyright 2017 [employer]. All rights reserved. The codes documented in this report are preliminary and upon certified medical coder review may be revised to meet current compliance requirements. Mamadou Fletcher MD 09/24/2020 8:22:09 AM This report has been signed electronically. Number of Addenda: 0 Note Initiated On: 09/24/2020 7:15 AM
[2020-09-24] MEDS: predniSONE 5 MG Tablet 2.5 MG PO (11:06)
[2020-09-24] MEDS: 0.9% Saline Lock 10 ML Syringe IV ×2 (11:08→22:39)
--- NOTE | 2020-09-24 11:37 | NURSING ---
This student RN with assistance from clinical instructor attempted urinary straight catheterization x1. Quick return of scant amount of cloudy, yellow urine. Some sediment noted. Unable to use specimen due to not enough urine. Primary RN made aware. Will attempt again later if needed. Pt tolerated well.
[2020-09-24] MEDS: Sucralfate 1 GM Tablet PO ×3 (11:46→22:40)
--- NOTE | 2020-09-24 12:55 | PN_ITS ---
<Bridger Haro - Last Filed: 09/24/20 12:55> Patient Problems: Active and Suspected Problems (Last Reviewed 09/23/20 @ 04:[address] Marc Snow MD) Generalized weakness (Acute) Diarrhea (Acute) GI bleed (Acute) Reason for Visit: Anemia Subjective: Pt resting comfortably in bed NAD. C/o generalized fatigue. LH/dizziness resolved. No palp/pressure/chest pain. Pt has mild diffuse abdominal discomfort. Vitals/I&O's: Vital Signs Temp Pulse Resp BP Pulse Ox 97.9 F 97 18 130/83 H 100 09/24/20 09:47 09/24/20 09:47 09/24/20 09:47 09/24/20 09:47 09/24/20 09:47 Oxygen Delivery Method Room Air Weight: 180 lb 12.465 oz Body Mass Index (BMI) 29.2 Finger Stick Blood Glucose 143 Intake and Output for Last 24 Hours 09/22/20 09/23/20 09/24/20 23:59 23:59 23:59 Intake Total 2450 / 2450 210 / 210 Output Total 0 / 0 50 / 50 Balance 2450 / 2450 160 / 160 General: Alert, Oriented x3, Cooperative HEENT: Atraumatic, PERRLA, EOMI, Normocephalic Neck: Supple, No JVD, Negative Carotid Bruits Lungs: Clear to auscultation, Normal air movement Cardiovascular: Regular rate, No murmurs Abdomen: Bowel Sounds Present, Soft, Tender - diffuse mild tenderness Extremities: No edema, Capillary Refill Less than 3 Seconds Skin: No rashes, No breakdown Musculoskeletal: No Tenderness to Palpation of Joints or Extremities Neurological: Cranial nerves II-XII grossly intact Psych/Mental Status: Normal Affect, Appropriate, Alert and oriented to time, place, person, mood and affect Microbiology Past 72 Hours 09/23/20 17:55 Mucosa - Nose SARS-CoV-2 Antigen (Rapid) - Final SARS-CoV-2 (COVID 19) 09/22/20 22:15 Stool Stool Lactoferrin - Final 09/22/20 22:15 Stool Enteric Bacteriology - Final 09/22/20 22:15 Stool C. difficile GDH Antigen & Toxins - Final 09/22/20 22:15 Stool C. difficile DNA Amplification - Final 09/22/20 22:15 Stool Stool Occult Blood (ANA) - Final Occult Blood Positive Laboratory Results 09/22/20 18:40: Crossmatch See Detail 09/23/20 15:00: Hgb 9.8 L, Hct 31.1 L 09/23/20 15:08: Hepatitis A IgM Ab Pending, Hepatitis A Ab Total Pending, Hep Bs Antigen Pending, Hep B Core Total Ab Pending, Hep B Core IgM Ab Pending 09/23/20 20:25: COVID-19 ([facility]) Not Detected 09/23/20 21:00: Hgb 9.7 L, Hct 30.8 L 09/24/20 06:15: WBC 14.1 H, RBC 3.37 L, Hgb 9.5 L, Hct 30.1 L, MCV 89.3, MCH 28.2, MCHC 31.6 L, RDW Std Deviation 54.2 H, RDW Coeff of Mika 16.7 H, Plt Count 475 H, MPV 9.9 09/24/20 06:15: Sodium 131 L, Potassium 4.4, Chloride 93 L, Carbon Dioxide 31.0, Anion Gap 7, BUN 22 H, Creatinine 2.65 H, Estim Creat Clear Calc 19.81, Est GFR (MDRD) Af Amer 23 L, Est GFR (MDRD) Non-Af 19 L, BUN/Creatinine Ratio 8.3 L, Glucose 63 L, Calcium 8.3 L 09/24/20 06:15: PT 37.0 H, INR 3.8 H*, APTT 76.5 H Current Medications Acetaminophen (Acetaminophen 500 Mg Tablet) 500 mg PO Q6H PRN PRN PRN Reason: Pain 1-10 or Fever Last Admin: 09/23/20 17:53 Dose: 500 mg Documented by: Alprazolam (Alprazolam 0.5 Mg Tablet) 1 mg PO TID PRN PRN PRN Reason: ANXIETY Last Admin: 09/23/20 23:32 Dose: 1 mg Documented by: Fluticasone Propionate (Fluticasone 0.05% 1 [place] Nasal.Sry) 2 spray NASAL DAILY [facility] Last Admin: 09/24/20 11:10 Dose: Not Given Documented by: Heparin Sodium (Porcine) (Heparin 10,000 Units/10 Ml Vial) 2,500 units IV UD PRN PRN Reason: Dialysis Cath Heparin Flush Pantoprazole Sodium 40 mg/ (Sodium Chloride) 110 mls @ 330 mls/hr IV Q12 [facility] Last Infusion: 09/24/20 11:26 Dose: Infused Documented by: Sodium Chloride () 250 mls @ 15 mls/hr IV .[id number] PRN PRN Reason: Saline Flush Sodium Chloride () 250 mls @ 15 mls/hr IV .[id number] PRN PRN Reason: Additional IVPB Infusion Melatonin (Melatonin 3 Mg Tablet) 3 mg PO QHS PRN PRN PRN Reason: INSOMNIA Last Admin: 09/23/20 23:32 Dose: 3 mg Documented by: Ondansetron HCl (Ondansetron 4 Mg/2 Ml Vial) 4 mg IV Q8H PRN PRN PRN Reason: NAUSEA/VOMITING Last Admin: 09/23/20 14:15 Dose: 4 mg Documented by: Prednisone (Prednisone 5 Mg Tablet) 2.5 mg PO 1200 [facility] Last Admin: 09/24/20 11:06 Dose: 2.5 mg Documented by: Prednisone (Prednisone 5 Mg Tablet) 5 mg PO BREAKFAST [facility] Last Admin: 09/24/20 11:03 Dose: Not Given Documented by: Sodium Chloride (0.9% Saline Lock 10 Ml Syringe) 10 - 40 ml IV UD PRN PRN Reason: SALINE FLUSH Last Admin: 09/24/20 11:08 Dose: 10 ml Documented by: Sucralfate (Sucralfate 1 Gm Tablet) 1 gm PO 1HR_ACHS [facility] Last Admin: 09/24/20 11:46 Dose: 1 gm Documented by: STROKE Vital Signs/Narrative: Vital Signs Temp Pulse Resp BP Pulse Ox 09/24/20 09:47 97.9 F 97 18 130/83 H 100 09/24/20 09:05 92 16 94/59 L 98 09/24/20 09:02 97.7 F L 92 16 93/63 97 09/24/20 09:00 92 16 93/61 97 Medical Necessity - Tobacco Use Smoking Status: Never smoker Assessment/Plan All Active Problems (Last Reviewed 09/23/20 @ 04:[address] Marc Snow MD) Generalized weakness (Acute) Diarrhea (Acute) GI bleed (Acute) 1. Acute blood loss anemia 2/2 lower GI bleed - EGD done - bleeding gastritis - continue PPI and carafate. Stool occult positive. INR elevated but pt not on warfarin. 2. Leukocytosis - unclear etiology - UA pending. O+P pending. no resp symptoms but + Covid antigen. Enteric panel neg. + C diff but no toxins. 3. ESRD - nephro following 4. Amyloidosis - renal bx +. Amyloid is possibly etiology for elevated INR. 5. RA - prednisone 6. Chronic diastolic CHF, pulmonary htn - no exacerbation 7. Abormal LFTs with elevated INR - hepatitis panel pending. Bili normal. DVT ppx: SCDs DC planning: Monitor overnight. This patient was seen by Bridger Haro PA-C under the supervision of Dr. Smith <Marcell Smith F - Last Filed: 09/24/20 15:05> Vitals/I&O's: Vital Signs Temp Pulse Resp BP Pulse Ox 98.0 F 84 18 119/71 94 09/24/20 14:00 09/24/20 14:00 09/24/20 14:00 09/24/20 14:00 09/24/20 14:00 Oxygen Delivery Method Room Air Weight: 180 lb 12.465 oz Body Mass Index (BMI) 29.2 Finger Stick Blood Glucose 143 Intake and Output for Last 24 Hours 09/22/20 09/23/20 09/24/20 23:59 23:59 23:59 Intake Total 2450 / 2450 210 / 210 Output Total 0 / 0 50 / 50 Balance 2450 / 2450 160 / 160 Microbiology Past 72 Hours 09/23/20 17:55 Mucosa - Nose SARS-CoV-2 Antigen (Rapid) - Final SARS-CoV-2 (COVID 19) 09/22/20 22:15 Stool Stool Lactoferrin - Final 09/22/20 22:15 Stool Enteric Bacteriology - Final 09/22/20 22:15 Stool C. difficile GDH Antigen & Toxins - Final 09/22/20 22:15 Stool C. difficile DNA Amplification - Final 09/22/20 22:15 Stool Stool Occult Blood (ANA) - Final Occult Blood Positive Laboratory Results 09/23/20 15:00: Hgb 9.8 L, Hct 31.1 L 09/23/20 15:08: Hepatitis A IgM Ab Pending, Hepatitis A Ab Total Pending, Hep Bs Antigen Pending, Hep B Core Total Ab Pending, Hep B Core IgM Ab Pending 09/23/20 20:25: COVID-19 ([facility]) Not Detected 09/23/20 21:00: Hgb 9.7 L, Hct 30.8 L 09/24/20 06:15: WBC 14.1 H, RBC 3.37 L, Hgb 9.5 L, Hct 30.1 L, MCV 89.3, MCH 28.2, MCHC 31.6 L, RDW Std Deviation 54.2 H, RDW Coeff of Mika 16.7 H, Plt Count 475 H, MPV 9.9 09/24/20 06:15: Sodium 131 L, Potassium 4.4, Chloride 93 L, Carbon Dioxide 31.0, Anion Gap 7, BUN 22 H, Creatinine 2.65 H, Estim Creat Clear Calc 19.81, Est GFR (MDRD) Af Amer 23 L, Est GFR (MDRD) Non-Af 19 L, BUN/Creatinine Ratio 8.3 L, Glucose 63 L, Calcium 8.3 L 09/24/20 06:15: PT 37.0 H, INR 3.8 H*, APTT 76.5 H Current Medications Acetaminophen (Acetaminophen 500 Mg Tablet) 500 mg PO Q6H PRN PRN PRN Reason: Pain 1-10 or Fever Last Admin: 09/23/20 17:53 Dose: 500 mg Documented by: Alprazolam (Alprazolam 0.5 Mg Tablet) 1 mg PO TID PRN PRN PRN Reason: ANXIETY Last Admin: 09/23/20 23:32 Dose: 1 mg Documented by: Fluticasone Propionate (Fluticasone 0.05% 1 [place] Nasal.Sry) 2 spray NASAL DAILY [facility] Last Admin: 09/24/20 11:10 Dose: Not Given Documented by: Heparin Sodium (Porcine) (Heparin 10,000 Units/10 Ml Vial) 2,500 units IV UD PRN PRN Reason: Dialysis Cath Heparin Flush Pantoprazole Sodium 40 mg/ (Sodium Chloride) 110 mls @ 330 mls/hr IV Q12 [facility] Last Infusion: 09/24/20 11:26 Dose: Infused Documented by: Sodium Chloride () 250 mls @ 15 mls/hr IV .[id number] PRN PRN Reason: Saline Flush Sodium Chloride () 250 mls @ 15 mls/hr IV .[id number] PRN PRN Reason: Additional IVPB Infusion Melatonin (Melatonin 3 Mg Tablet) 3 mg PO QHS PRN PRN PRN Reason: INSOMNIA Last Admin: 09/23/20 23:32 Dose: 3 mg Documented by: Ondansetron HCl (Ondansetron 4 Mg/2 Ml Vial) 4 mg IV Q8H PRN PRN PRN Reason: NAUSEA/VOMITING Last Admin: 09/23/20 14:15 Dose: 4 mg Documented by: Prednisone (Prednisone 5 Mg Tablet) 2.5 mg PO 1200 [facility] Last Admin: 09/24/20 11:06 Dose: 2.5 mg Documented by: Prednisone (Prednisone 5 Mg Tablet) 5 mg PO BREAKFAST [facility] Last Admin: 09/24/20 11:03 Dose: Not Given Documented by: Sodium Chloride (0.9% Saline Lock 10 Ml Syringe) 10 - 40 ml IV UD PRN PRN Reason: SALINE FLUSH Last Admin: 09/24/20 11:08 Dose: 10 ml Documented by: Sucralfate (Sucralfate 1 Gm Tablet) 1 gm PO 1HR_ACHS [facility] Last Admin: 09/24/20 11:46 Dose: 1 gm Documented by: STROKE Vital Signs/Narrative: Vital Signs Temp Pulse Resp BP Pulse Ox 09/24/20 14:00 98.0 F 84 18 119/71 94 Addendum: Dr. Smith I personally examined the patient and reviewed the chart. I agree with the above. 65-year-old female presented from home with diarrhea and dark stools. It is very similar to her previous episode in May 2020. She denies any significant abdominal pain at this time, however her hemoglobin is down to 6.8 so she will be transfused 2 units with dialysis. Also she continues to have C. difficile antigen and DNA but no toxin therefore unlikely to have a C. difficile infection at this time we will continue to monitor white count and fever curve. She does have a history of amyloidosis which apparently can increase INR however in May, her INR was normal therefore will obtain hepatitis panel. Plan for EGD in the morning. 09/24/2020: She was about the same as she did yesterday. Hemoglobin is much improved after the 2 units during dialysis yesterday. INR remains elevated at 3.8 as is her alk phos though it is trending down. Hepatitis panel is pending for evaluation however now she also has a white count of 14.1, she remains afebrile so we will just monitor for now as she does not have any signs of infection. She did have her EGD today which demonstrated a chronic gastritis with hemorrhage. Continue with PPI and Carafate. Inpatient E&M: 44533 Subs Hosp L2
--- NOTE | 2020-09-24 13:38 | NURSING ---
Primary RN informed student nurse that urine sample is not needed, so urinary straight catheterization is no longer needed.
--- NOTE | 2020-09-24 14:30 | PN.RENAL_ITS ---
Patient Problems: Active and Suspected Problems (Last Reviewed 09/23/20 @ 04:[address] Marc Snow MD) Generalized weakness (Acute) Diarrhea (Acute) GI bleed (Acute) Subjective: no new complaints - Physical Exam Vitals/I&O's: Vital Signs Temp Pulse Resp BP Pulse Ox 97.9 F 97 18 130/83 H 100 09/24/20 09:47 09/24/20 09:47 09/24/20 09:47 09/24/20 09:47 09/24/20 09:47 Oxygen Delivery Method Room Air Weight: 82 kg Body Mass Index (BMI) 29.2 Finger Stick Blood Glucose 143 Intake and Output for Last 24 Hours 09/22/20 09/23/20 09/24/20 23:59 23:59 23:59 Intake Total 2450 / 2450 210 / 210 Output Total 0 / 0 50 / 50 Balance 2450 / 2450 160 / 160 General: Alert, Oriented x3, Cooperative HEENT: Atraumatic, PERRLA, EOMI, Normocephalic Neck: Supple, No JVD, Negative Carotid Bruits Lungs: Clear to auscultation, Normal air movement Cardiovascular: Regular rate, No murmurs Abdomen: Bowel Sounds Present, Soft, Non Tender Extremities: No edema, Capillary Refill Less than 3 Seconds Skin: No rashes, No breakdown Musculoskeletal: No Tenderness to Palpation of Joints or Extremities Neurological: Cranial nerves II-XII grossly intact Psych/Mental Status: Normal Affect, Appropriate Microbiology Past 72 Hours 09/23/20 17:55 Mucosa - Nose SARS-CoV-2 Antigen (Rapid) - Final SARS-CoV-2 (COVID 19) 09/22/20 22:15 Stool Stool Lactoferrin - Final 09/22/20 22:15 Stool Enteric Bacteriology - Final 09/22/20 22:15 Stool C. difficile GDH Antigen & Toxins - Final 09/22/20 22:15 Stool C. difficile DNA Amplification - Final 09/22/20 22:15 Stool Stool Occult Blood (ANA) - Final Occult Blood Positive Laboratory Results 09/23/20 15:00: Hgb 9.8 L, Hct 31.1 L 09/23/20 15:08: Hepatitis A IgM Ab Pending, Hepatitis A Ab Total Pending, Hep Bs Antigen Pending, Hep B Core Total Ab Pending, Hep B Core IgM Ab Pending 09/23/20 20:25: COVID-19 ([facility]) Not Detected 09/23/20 21:00: Hgb 9.7 L, Hct 30.8 L 09/24/20 06:15: WBC 14.1 H, RBC 3.37 L, Hgb 9.5 L, Hct 30.1 L, MCV 89.3, MCH 28.2, MCHC 31.6 L, RDW Std Deviation 54.2 H, RDW Coeff of Mika 16.7 H, Plt Count 475 H, MPV 9.9 09/24/20 06:15: Sodium 131 L, Potassium 4.4, Chloride 93 L, Carbon Dioxide 31.0, Anion Gap 7, BUN 22 H, Creatinine 2.65 H, Estim Creat Clear Calc 19.81, Est GFR (MDRD) Af Amer 23 L, Est GFR (MDRD) Non-Af 19 L, BUN/Creatinine Ratio 8.3 L, Glucose 63 L, Calcium 8.3 L 09/24/20 06:15: PT 37.0 H, INR 3.8 H*, APTT 76.5 H Current Medications Acetaminophen (Acetaminophen 500 Mg Tablet) 500 mg PO Q6H PRN PRN PRN Reason: Pain 1-10 or Fever Last Admin: 09/23/20 17:53 Dose: 500 mg Documented by: Alprazolam (Alprazolam 0.5 Mg Tablet) 1 mg PO TID PRN PRN PRN Reason: ANXIETY Last Admin: 09/23/20 23:32 Dose: 1 mg Documented by: Fluticasone Propionate (Fluticasone 0.05% 1 [place] Nasal.Sry) 2 spray NASAL DAILY [facility] Last Admin: 09/24/20 11:10 Dose: Not Given Documented by: Heparin Sodium (Porcine) (Heparin 10,000 Units/10 Ml Vial) 2,500 units IV UD PRN PRN Reason: Dialysis Cath Heparin Flush Pantoprazole Sodium 40 mg/ (Sodium Chloride) 110 mls @ 330 mls/hr IV Q12 [facility] Last Infusion: 09/24/20 11:26 Dose: Infused Documented by: Sodium Chloride () 250 mls @ 15 mls/hr IV .[id number] PRN PRN Reason: Saline Flush Sodium Chloride () 250 mls @ 15 mls/hr IV .[id number] PRN PRN Reason: Additional IVPB Infusion Melatonin (Melatonin 3 Mg Tablet) 3 mg PO QHS PRN PRN PRN Reason: INSOMNIA Last Admin: 09/23/20 23:32 Dose: 3 mg Documented by: Ondansetron HCl (Ondansetron 4 Mg/2 Ml Vial) 4 mg IV Q8H PRN PRN PRN Reason: NAUSEA/VOMITING Last Admin: 09/23/20 14:15 Dose: 4 mg Documented by: Prednisone (Prednisone 5 Mg Tablet) 2.5 mg PO 1200 [facility] Last Admin: 09/24/20 11:06 Dose: 2.5 mg Documented by: Prednisone (Prednisone 5 Mg Tablet) 5 mg PO BREAKFAST [facility] Last Admin: 09/24/20 11:03 Dose: Not Given Documented by: Sodium Chloride (0.9% Saline Lock 10 Ml Syringe) 10 - 40 ml IV UD PRN PRN Reason: SALINE FLUSH Last Admin: 09/24/20 11:08 Dose: 10 ml Documented by: Sucralfate (Sucralfate 1 Gm Tablet) 1 gm PO 1HR_ACHS [facility] Last Admin: 09/24/20 11:46 Dose: 1 gm Documented by: Medical Necessity - Tobacco Use Smoking Status: Never smoker Assessment/Plan All Active Problems (Last Reviewed 09/23/20 @ 04:[address] Marc Snow MD) Generalized weakness (Acute) Diarrhea (Acute) GI bleed (Acute) End-stage renal disease. HD MWF schedule Anemia. Due to ESRD and now GI bleed. s/p blood transfusion.
[2020-09-24] MEDS: ALPRAZolam 0.5 MG Tablet 1 MG PO ×2 (16:29→22:40)
[2020-09-24] MEDS: MELATONIN 3 MG TABLET PO (22:40)
[2020-09-25] VITALS (14 sets, daily range): BP systolic 77–126; BP diastolic 47–76; PULSE 86–104; RESP 16–20; TEMP 36.1–36.9; O2SAT 93–99
[2020-09-25 04:07] LABS: HEPATITIS B SURFACE AG Negative (Negative); Hepatitis A AB, Total Negative (Negative); Hepatitis A IgM Antibody Negative (Negative); Hepatitis B Core AB IgM Negative (Negative); Hepatitis B Core Ab Total Negative (Negative); Hepatitis C Ab <0.1 s/co ratio (0.0-0.9)
[2020-09-25] MEDS: Sucralfate 1 GM Tablet PO ×4 (06:33→22:15)
[2020-09-25 07:12] LABS: Absolute Lymphocyte Count 1.23 X10^3/uL (0.83-4.51); Absolute Neutrophil Count 16.7 X10^3/uL (2.0-7.7); Basophil# 0.03 X10^3/uL; Basophil% 0.2 % (0-1); Eosinophil# 0.08 X10^3/uL; Eosinophils% 0.4 % (0-5); Hematocrit 28.3 % (37-47); Hemoglobin 8.7 g/dL (12.0-15.0); Lymphocyte # 1.23 X10^3/ul (4.0); Lymphocyte % 6.4 % (19-41); Mean Corp Hgb Conc 30.7 g/dL (32-36); Mean Corpuscular Hgb 27.5 pg (27.0-32.0); Mean Corpuscular Volume 89.6 fL (81-99); Monocyte# 0.94 X10^3/uL; Monocyte% 4.9 % (0-10); NRBC Flagged by Analyzer 0 % (0-5); Neutrophil # 16.72 X10^3/uL (2.7-7.7); Neutrophil % 87.5 % (47-70); Platelet Count 500 K/mm3 (150-450); RBC Distribution Width CV 16.5 % (11.6-14.6); RBC Distribution Width SD 53.9 fl (35.1-43.9); Red Blood Count 3.16 M/mm3 (4.2-5.4); White Blood Count 19.1 K/mm3 (4.4-11.0)
--- NOTE | 2020-09-25 07:23 | PN.SURG_ITS ---
Patient Problems: Active and Suspected Problems (Last Reviewed 09/23/20 @ 04:[address] Marc Snow MD) Generalized weakness (Acute) Diarrhea (Acute) GI bleed (Acute) Subjective: Patient reports she had no bloody diarrhea overnight and her abdomen feels much better than it did yesterday morning. - Physical Exam Vitals/I&O's: Vital Signs Temp Pulse Resp BP Pulse Ox 97.5 F L 95 18 103/71 94 09/25/20 06:34 09/25/20 06:34 09/25/20 06:34 09/25/20 06:34 09/25/20 06:34 Oxygen Delivery Method Room Air Weight: 180 lb 12.465 oz Body Mass Index (BMI) 29.2 Finger Stick Blood Glucose 143 Intake and Output for Last 24 Hours 09/23/20 09/24/20 09/25/20 23:59 23:59 23:59 Intake Total 2450 / 2450 920 / 920 300 / 300 Output Total 0 / 0 50 / 50 Balance 2450 / 2450 870 / 870 300 / 300 General: Alert, Oriented x3 Neck: No JVD Lungs: Normal air movement Cardiovascular: Regular rate, Regular Rhythm Abdomen: Soft, Non Tender, Non-Distended Microbiology Past 72 Hours 09/23/20 17:55 Mucosa - Nose SARS-CoV-2 Antigen (Rapid) - Final SARS-CoV-2 (COVID 19) 09/22/20 22:15 Stool Stool Lactoferrin - Final 09/22/20 22:15 Stool Enteric Bacteriology - Final 09/22/20 22:15 Stool C. difficile GDH Antigen & Toxins - Final 09/22/20 22:15 Stool C. difficile DNA Amplification - Final 09/22/20 22:15 Stool Stool Occult Blood (ANA) - Final Occult Blood Positive Laboratory Results 09/25/20 06:40: WBC 19.1 H, RBC 3.16 L, Hgb 8.7 L, Hct 28.3 L, MCV 89.6, MCH 27.5, MCHC 30.7 L, RDW Std Deviation 53.9 H, RDW Coeff of Mika 16.5 H, Plt Count 500 H, MPV 10.0, Immature Gran % (Auto) 0.600, Neut % (Auto) 87.5 H, Lymph % (Auto) 6.4 L, [place] % (Auto) 4.9, Eos % (Auto) 0.4, Baso % (Auto) 0.2, Absolute Neuts (auto) 16.7 H, Absolute Lymphs (auto) 1.23, Nucleated RBC % 0 09/25/20 06:40: Sodium Pending, Potassium Pending, Chloride Pending, Carbon Dioxide Pending, Anion Gap Pending, BUN Pending, Creatinine Pending, Est GFR (MDRD) Af Amer Pending, Est GFR (MDRD) Non-Af Pending, BUN/Creatinine Ratio Pending, Glucose Pending, Calcium Pending, Total Bilirubin Pending, AST Pending, ALT Pending, Alkaline Phosphatase Pending, Total Protein Pending, Albumin Pending Current Medications Acetaminophen (Acetaminophen 500 Mg Tablet) 500 mg PO Q6H PRN PRN PRN Reason: Pain 1-10 or Fever Last Admin: 09/23/20 17:53 Dose: 500 mg Documented by: Alprazolam (Alprazolam 0.5 Mg Tablet) 1 mg PO TID PRN PRN PRN Reason: ANXIETY Last Admin: 09/24/20 22:40 Dose: 1 mg Documented by: Fluticasone Propionate (Fluticasone 0.05% 1 [place] Nasal.Sry) 2 spray NASAL DAILY [facility] Last Admin: 09/24/20 11:10 Dose: Not Given Documented by: Heparin Sodium (Porcine) (Heparin 10,000 Units/10 Ml Vial) 2,500 units IV UD PRN PRN Reason: Dialysis Cath Heparin Flush Pantoprazole Sodium 40 mg/ (Sodium Chloride) 110 mls @ 330 mls/hr IV Q12 [facility] Last Infusion: 09/24/20 23:00 Dose: Infused Documented by: Sodium Chloride () 250 mls @ 15 mls/hr IV .[id number] PRN PRN Reason: Saline Flush Sodium Chloride () 250 mls @ 15 mls/hr IV .[id number] PRN PRN Reason: Additional IVPB Infusion Melatonin (Melatonin 3 Mg Tablet) 3 mg PO QHS PRN PRN PRN Reason: INSOMNIA Last Admin: 09/24/20 22:40 Dose: 3 mg Documented by: Ondansetron HCl (Ondansetron 4 Mg/2 Ml Vial) 4 mg IV Q8H PRN PRN PRN Reason: NAUSEA/VOMITING Last Admin: 09/23/20 14:15 Dose: 4 mg Documented by: Prednisone (Prednisone 5 Mg Tablet) 2.5 mg PO 1200 [facility] Last Admin: 09/24/20 11:06 Dose: 2.5 mg Documented by: Prednisone (Prednisone 5 Mg Tablet) 5 mg PO BREAKFAST COUNT [facility]CLUD[facility] Last Admin: 09/24/20 11:03 Dose: Not Given Documented by: Sodium Chloride (0.9% Saline Lock 10 Ml Syringe) 10 - 40 ml IV UD PRN PRN Reason: SALINE FLUSH Last Admin: 09/24/20 22:39 Dose: 10 ml Documented by: Sucralfate (Sucralfate 1 Gm Tablet) 1 gm PO 1HR_ACHS [facility] Last Admin: 09/25/20 06:33 Dose: 1 gm Documented by: Medical Necessity - Tobacco Use Smoking Status: Never smoker Assessment/Plan All Active Problems (Last Reviewed 09/23/20 @ 04:[address] Marc Snow MD) Generalized weakness (Acute) Diarrhea (Acute) GI bleed (Acute) 65-year-old female with bleeding gastritis 1. Patient reports she is doing well and she had no more bloody bowel movements. Her hemoglobin is being checked this morning. As long as her hemoglobin is stable I would recommend she is okay for discharge and I have ordered her omeprazole and Carafate for discharge medications. Mamadou Fletcher MD Pager: [facility] [address] [place] [address], [address] [place] [address] Office:
[2020-09-25 08:02] LABS: ALB/GLOB Ratio 0.5 RATIO (0.9-2.4); AST(SGOT) 26 U/L (15-37); Alanine Aminotransfer ALT/SGPT 19 U/L (13-56); Albumin, Serum 1.6 g/dL (3.2-5.0); Alkaline Phosphatase 603 U/L (45-117); Anion Gap 10 (5-15); BUN 38 mg/dL (7-18); BUN/Creat Ratio 9.6 RATIO (10-20); Calcium,Total 8.1 mg/dL (8.5-10.1); Chloride 91 mmol/L (98-107); Creatinine, Serum 3.96 mg/dL (0.55-1.02); EST Glomerular Filtration Rate 12 mL/min (>60); Est Glom Filt Rate - Afr Amer 15 mL/min (>60); Estimated Creatinine Clearance 13.26 ml/min; Globulin 3.5 g/dL (2.2-4.2); Glucose 73 mg/dL (74-106); Potassium 4.9 mmol/L (3.5-5.1); Protein, Total 5.1 g/dL (6.4-8.2); Sodium Level 128 mmol/L (136-145)
--- NOTE | 2020-09-25 12:24 | DIALYSIS ---
Hemodialysis x3h45m completed today on a 2K bath, tolerated well, UF 0mL, ran even, hypotensive with attempts at fluid removal, accessed via right chest tunneled dialysis catheter, worked well, next tx planned for Monday
[2020-09-25 12:41] LABS: Hep B Surface Antibodies Reactive (.)
--- NOTE | 2020-09-25 12:49 | EKG12_ITS ---
Test Reason : CHANGE IN RYTHEM Blood Pressure : / mmHG Vent. Rate : 109 BPM Atrial Rate : 208 BPM P-R Int : 000 ms QRS Dur : 106 ms QT Int : 398 ms P-R-T Axes : 000 -45 134 degrees QTc Int : 535 ms Atrial fibrillation Left anterior fascicular block T wave abnormality, consider lateral ischemia Prolonged QT Abnormal ECG Confirmed by RADHA LOZANO, TIMOTHY ([id number]), video editor EDIS JACOBS ([id number]) on 09/29/2020 8:31:24 AM Referred By: Fariba NOGUEIRA Confirmed By:TIMOTHY GARCIA MD
[2020-09-25 13:39] LABS: Hematocrit 29.1 % (37-47); Hemoglobin 9.1 g/dL (12.0-15.0)
[2020-09-25] MEDS: Fluticasone 0.05% 1 SPRAY NASAL.SRY 2 SPRAY NASAL (13:40)
[2020-09-25] MEDS: 0.9% Saline Lock 10 ML Syringe IV (13:41)
[2020-09-25] MEDS: predniSONE 5 MG Tablet 2.5 MG PO (13:41)
--- NOTE | 2020-09-25 14:44 | PN.RENAL_ITS ---
Patient Problems: Active and Suspected Problems (Last Reviewed 09/23/20 @ 04:[address] Marc Snow MD) Generalized weakness (Acute) Diarrhea (Acute) GI bleed (Acute) Subjective: no new complaints - Physical Exam Vitals/I&O's: Vital Signs Temp Pulse Resp BP Pulse Ox 98.2 F 100 16 84/69 L 93 09/25/20 12:57 09/25/20 12:57 09/25/20 12:57 09/25/20 12:57 09/25/20 12:57 Oxygen Delivery Method Room Air Weight: 82 kg Body Mass Index (BMI) 29.2 Finger Stick Blood Glucose 143 Intake and Output for Last 24 Hours 09/23/20 09/24/20 09/25/20 23:59 23:59 23:59 Intake Total 2450 / 2450 920 / 920 410 / 410 Output Total 2700 / 2700 50 / 50 0 / 0 Balance -250 / -250 870 / 870 410 / 410 General: Alert, Oriented x3, Cooperative HEENT: Atraumatic, PERRLA, EOMI, Normocephalic Neck: Supple, No JVD, Negative Carotid Bruits Lungs: Clear to auscultation, Normal air movement Cardiovascular: Regular rate, No murmurs Abdomen: Bowel Sounds Present, Soft, Non Tender Extremities: No edema, Capillary Refill Less than 3 Seconds Skin: No rashes, No breakdown Musculoskeletal: No Tenderness to Palpation of Joints or Extremities Neurological: Cranial nerves II-XII grossly intact Psych/Mental Status: Normal Affect, Appropriate Microbiology Past 72 Hours 09/23/20 17:55 Mucosa - Nose SARS-CoV-2 Antigen (Rapid) - Final SARS-CoV-2 (COVID 19) 09/22/20 22:15 Stool Stool Lactoferrin - Final 09/22/20 22:15 Stool Enteric Bacteriology - Final 09/22/20 22:15 Stool C. difficile GDH Antigen & Toxins - Final 09/22/20 22:15 Stool C. difficile DNA Amplification - Final 09/22/20 22:15 Stool Stool Occult Blood (ANA) - Final Occult Blood Positive Laboratory Results 09/23/20 15:08: Hepatitis A IgM Ab Negative, Hepatitis A Ab Total Negative, Hep Bs Antigen Negative, Hep B Core Total Ab Negative, Hep B Core IgM Ab Negative, Hepatitis C Ab Confirm <0.1, Hep C Confirm Com 1 Comment 09/25/20 06:40: WBC 19.1 H, RBC 3.16 L, Hgb 8.7 L, Hct 28.3 L, MCV 89.6, MCH 27.5, MCHC 30.7 L, RDW Std Deviation 53.9 H, RDW Coeff of Mika 16.5 H, Plt Count 500 H, MPV 10.0, Immature Gran % (Auto) 0.600, Neut % (Auto) 87.5 H, Lymph % (Auto) 6.4 L, [place] % (Auto) 4.9, Eos % (Auto) 0.4, Baso % (Auto) 0.2, Absolute Neuts (auto) 16.7 H, Absolute Lymphs (auto) 1.23, Nucleated RBC % 0 09/25/20 06:40: Sodium 128 L, Potassium 4.9, Chloride 91 L, Carbon Dioxide 27.0, Anion Gap 10, BUN 38 H, Creatinine 3.96 H, Estim Creat Clear Calc 13.26, Est GFR (MDRD) Af Amer 15 L, Est GFR (MDRD) Non-Af 12 L, BUN/Creatinine Ratio 9.6 L, Glucose 73 L, Calcium 8.1 L, Total Bilirubin 0.70, AST 26, ALT 19, Alkaline Phosphatase 603 H, Total Protein 5.1 L, Albumin 1.6 L, Globulin 3.5, Albumin/Globulin Ratio 0.5 L 09/25/20 13:09: Hgb 9.1 L, Hct 29.1 L Current Medications Acetaminophen (Acetaminophen 500 Mg Tablet) 500 mg PO Q6H PRN PRN PRN Reason: Pain 1-10 or Fever Last Admin: 09/23/20 17:53 Dose: 500 mg Documented by: Alprazolam (Alprazolam 0.5 Mg Tablet) 1 mg PO TID PRN PRN PRN Reason: ANXIETY Last Admin: 09/24/20 22:40 Dose: 1 mg Documented by: Fluticasone Propionate (Fluticasone 0.05% 1 [place] Nasal.Sry) 2 spray NASAL DAILY [facility] Last Admin: 09/25/20 13:40 Dose: 2 spray Documented by: Heparin Sodium (Porcine) (Heparin 10,000 Units/10 Ml Vial) 2,500 units IV UD PRN PRN Reason: Dialysis Cath Heparin Flush Pantoprazole Sodium 40 mg/ (Sodium Chloride) 110 mls @ 330 mls/hr IV Q12 [facility] Last Infusion: 09/25/20 14:00 Dose: Infused Documented by: Sodium Chloride () 250 mls @ 15 mls/hr IV .[id number] PRN PRN Reason: Saline Flush Sodium Chloride () 250 mls @ 15 mls/hr IV .[id number] PRN PRN Reason: Additional IVPB Infusion Melatonin (Melatonin 3 Mg Tablet) 3 mg PO QHS PRN PRN PRN Reason: INSOMNIA Last Admin: 09/24/20 22:40 Dose: 3 mg Documented by: Metoprolol Succinate (Metoprolol(Xl)Succ 25 Mg Tablet) 25 mg PO DAILY [facility] Ondansetron HCl (Ondansetron 4 Mg/2 Ml Vial) 4 mg IV Q8H PRN PRN PRN Reason: NAUSEA/VOMITING Last Admin: 09/23/20 14:15 Dose: 4 mg Documented by: Prednisone (Prednisone 5 Mg Tablet) 2.5 mg PO 1200 [facility] Last Admin: 09/25/20 13:41 Dose: 2.5 mg Documented by: Prednisone (Prednisone 5 Mg Tablet) 5 mg PO BREAKFAST [facility] Last Admin: 09/25/20 12:50 Dose: Not Given Documented by: Sevelamer Carbonate (Sevelamer Carbonate 800 Mg Tablet) 240 mg PO TIDCM [facility] Sodium Chloride (0.9% Saline Lock 10 Ml Syringe) 10 - 40 ml IV UD PRN PRN Reason: SALINE FLUSH Last Admin: 09/25/20 13:41 Dose: 10 ml Documented by: Sucralfate (Sucralfate 1 Gm Tablet) 1 gm PO 1HR_ACHS [facility] Last Admin: 09/25/20 13:41 Dose: 1 gm Documented by: Medical Necessity - Tobacco Use Smoking Status: Never smoker Assessment/Plan All Active Problems (Last Reviewed 09/23/20 @ 04:[address] Marc Snow MD) Generalized weakness (Acute) Diarrhea (Acute) GI bleed (Acute) End-stage renal disease. HD MWF schedule. HD today Anemia. Due to ESRD and now GI bleed. s/p blood transfusion. Hb stable
--- NOTE | 2020-09-25 17:29 | PCM.PN.HOSP ---
Patient Problems: Active and Suspected Problems (Last Reviewed 09/23/20 @ 04:[address] Marc Snow MD) Generalized weakness (Acute) Diarrhea (Acute) GI bleed (Acute) Subjective: Abdominal pain is improving but she is having increasing diarrhea as well as an increased white count Vitals/I&O's: Vital Signs Temp Pulse Resp BP Pulse Ox 97.8 F 91 16 101/68 99 09/25/20 17:08 09/25/20 17:08 09/25/20 17:08 09/25/20 17:08 09/25/20 17:08 Oxygen Delivery Method Room Air Weight: 180 lb 12.465 oz Body Mass Index (BMI) 29.2 Finger Stick Blood Glucose 143 Intake and Output for Last 24 Hours 09/23/20 09/24/20 09/25/20 23:59 23:59 23:59 Intake Total 2450 / 2450 920 / 920 910 / 910 Output Total 2700 / 2700 50 / 50 0 / 0 Balance -250 / -250 870 / 870 910 / 910 General: Alert, Oriented x3, Cooperative, No apparent distress HEENT: Atraumatic, PERRLA, EOMI, Normocephalic Oral: Moist Mucosa Neck: Supple, No JVD Lungs: Clear to auscultation, Normal air movement, No rhonchi, No wheeze, No rales Cardiovascular: Regular rate, Regular Rhythm, Normal S1, Normal S2, No murmurs Abdomen: Soft, Non Tender, Non-Distended, No Hepato-splenomegaly Extremities: No edema, Capillary Refill Less than 3 Seconds Skin: No rashes, No breakdown Neurological: Neuro grossly intact, Sensory exam intact to light touch and pain Psych/Mental Status: Normal Affect, Appropriate Microbiology Past 72 Hours 09/23/20 17:55 Mucosa - Nose SARS-CoV-2 Antigen (Rapid) - Final SARS-CoV-2 (COVID 19) 09/22/20 22:15 Stool Stool Lactoferrin - Final 09/22/20 22:15 Stool Enteric Bacteriology - Final 09/22/20 22:15 Stool C. difficile GDH Antigen & Toxins - Final 09/22/20 22:15 Stool C. difficile DNA Amplification - Final 09/22/20 22:15 Stool Stool Occult Blood (ANA) - Final Occult Blood Positive Laboratory Results 09/23/20 15:08: Hepatitis A IgM Ab Negative, Hepatitis A Ab Total Negative, Hep Bs Antigen Negative, Hep B Core Total Ab Negative, Hep B Core IgM Ab Negative, Hepatitis C Ab Confirm <0.1, Hep C Confirm Com 1 Comment 09/25/20 06:40: WBC 19.1 H, RBC 3.16 L, Hgb 8.7 L, Hct 28.3 L, MCV 89.6, MCH 27.5, MCHC 30.7 L, RDW Std Deviation 53.9 H, RDW Coeff of Mika 16.5 H, Plt Count 500 H, MPV 10.0, Immature Gran % (Auto) 0.600, Neut % (Auto) 87.5 H, Lymph % (Auto) 6.4 L, [place] % (Auto) 4.9, Eos % (Auto) 0.4, Baso % (Auto) 0.2, Absolute Neuts (auto) 16.7 H, Absolute Lymphs (auto) 1.23, Nucleated RBC % 0 09/25/20 06:40: Sodium 128 L, Potassium 4.9, Chloride 91 L, Carbon Dioxide 27.0, Anion Gap 10, BUN 38 H, Creatinine 3.96 H, Estim Creat Clear Calc 13.26, Est GFR (MDRD) Af Amer 15 L, Est GFR (MDRD) Non-Af 12 L, BUN/Creatinine Ratio 9.6 L, Glucose 73 L, Calcium 8.1 L, Total Bilirubin 0.70, AST 26, ALT 19, Alkaline Phosphatase 603 H, Total Protein 5.1 L, Albumin 1.6 L, Globulin 3.5, Albumin/Globulin Ratio 0.5 L 09/25/20 13:09: Hgb 9.1 L, Hct 29.1 L Current Medications Acetaminophen (Acetaminophen 500 Mg Tablet) 500 mg PO Q6H PRN PRN PRN Reason: Pain 1-10 or Fever Last Admin: 09/23/20 17:53 Dose: 500 mg Documented by: Alprazolam (Alprazolam 0.5 Mg Tablet) 1 mg PO TID PRN PRN PRN Reason: ANXIETY Last Admin: 09/24/20 22:40 Dose: 1 mg Documented by: Fluticasone Propionate (Fluticasone 0.05% 1 [place] Nasal.Sry) 2 spray NASAL DAILY [facility] Last Admin: 09/25/20 13:40 Dose: 2 spray Documented by: Heparin Sodium (Porcine) (Heparin 10,000 Units/10 Ml Vial) 2,500 units IV UD PRN PRN Reason: Dialysis Cath Heparin Flush Pantoprazole Sodium 40 mg/ (Sodium Chloride) 110 mls @ 330 mls/hr IV Q12 [facility] Last Infusion: 09/25/20 14:00 Dose: Infused Documented by: Sodium Chloride () 250 mls @ 15 mls/hr IV .[id number] PRN PRN Reason: Saline Flush Sodium Chloride () 250 mls @ 15 mls/hr IV .[id number] PRN PRN Reason: Additional IVPB Infusion Melatonin (Melatonin 3 Mg Tablet) 3 mg PO QHS PRN PRN PRN Reason: INSOMNIA Last Admin: 09/24/20 22:40 Dose: 3 mg Documented by: Metoprolol Succinate (Metoprolol(Xl)Succ 25 Mg Tablet) 25 mg PO DAILY [facility] Ondansetron HCl (Ondansetron 4 Mg/2 Ml Vial) 4 mg IV Q8H PRN PRN PRN Reason: NAUSEA/VOMITING Last Admin: 09/23/20 14:15 Dose: 4 mg Documented by: Prednisone (Prednisone 5 Mg Tablet) 2.5 mg PO 1200 [facility] Last Admin: 09/25/20 13:41 Dose: 2.5 mg Documented by: Prednisone (Prednisone 5 Mg Tablet) 5 mg PO BREAKFAST [facility] Last Admin: 09/25/20 12:50 Dose: Not Given Documented by: Sevelamer Carbonate (Sevelamer Carbonate 800 Mg Tablet) 2,400 mg PO TIDCM [facility] Sodium Chloride (0.9% Saline Lock 10 Ml Syringe) 10 - 40 ml IV UD PRN PRN Reason: SALINE FLUSH Last Admin: 09/25/20 13:41 Dose: 10 ml Documented by: Sucralfate (Sucralfate 1 Gm Tablet) 1 gm PO 1HR_ACHS [facility] Last Admin: 09/25/20 17:10 Dose: 1 gm Documented by: Vancomycin HCl (Vancomcyin 125 Mg/5 Ml Susp Po.Syringe) 125 mg PO Q6 [facility] Last Admin: 09/25/20 17:10 Dose: 125 mg Documented by: STROKE Vital Signs/Narrative: Vital Signs Temp Pulse Resp BP Pulse Ox 09/25/20 17:08 97.8 F 91 16 101/68 99 09/25/20 15:25 97.7 F L 88 16 77/47 L 96 Medical Necessity - Tobacco Use Smoking Status: Never smoker Assessment/Plan All Active Problems (Last Reviewed 09/23/20 @ 04:[address] Marc Snow MD) Generalized weakness (Acute) Diarrhea (Acute) GI bleed (Acute) 1. Acute blood loss anemia secondary to upper GI bleed/diarrhea/elevated INR -Continue with hemorrhagic gastritis -Continue to monitor INR, unsure of why it is elevated, LFTs are normal but alk phos is elevated -There is a possibility that amyloidosis can cause an elevation in INR -Hepatitis panel was normal -Leukocytosis of 19 unsure of the etiology. Once again she tested positive for C. difficile toxin toxin -Again we will start her on p.o. vancomycin 2. CAD/HTN/chronic diastolic CHF/pulmonary hypertension -We will hold aspirin secondary to her GI bleed -He has had histories with bradycardia in the past, she is supposed to be on 25 of metoprolol -Continue her blood pressure stabilizes 3. 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 Rheumatoid arthritis -Stable -Continue with prednisone DVT: SCDs Inpatient E&M: 48927 Subs Hosp L2
[2020-09-25] MEDS: SEVELAMER CARBONATE 800 MG TABLET 2400 MG PO (17:34)
[2020-09-25] MEDS: Acetaminophen 500 MG Tablet PO (22:15)
[2020-09-26] VITALS (9 sets, daily range): BP systolic 99–124; BP diastolic 55–85; PULSE 89–108; RESP 16–18; TEMP 36.5–36.7; O2SAT 95–98
[2020-09-26] MEDS: Sucralfate 1 GM Tablet PO ×2 (06:36→11:42)
[2020-09-26 07:18] LABS: Absolute Lymphocyte Count 0.94 X10^3/uL (0.83-4.51); Absolute Neutrophil Count 9.5 X10^3/uL (2.0-7.7); Basophil# 0.02 X10^3/uL; Basophil% 0.2 % (0-1); Eosinophil# 0.14 X10^3/uL; Eosinophils% 1.2 % (0-5); Hematocrit 25.9 % (37-47); Lymphocyte # 0.94 X10^3/ul (4.0); Lymphocyte % 8.3 % (19-41); Mean Corp Hgb Conc 30.9 g/dL (32-36); Mean Corpuscular Hgb 28.2 pg (27.0-32.0); Mean Corpuscular Volume 91.2 fL (81-99); Mean Platelet Vol. 10.7 fl (6.2-12.0); Monocyte# 0.71 X10^3/uL; Monocyte% 6.2 % (0-10); NRBC Flagged by Analyzer 0 % (0-5); Neutrophil # 9.52 X10^3/uL (2.7-7.7); Neutrophil % 83.6 % (47-70); Platelet Count 454 K/mm3 (150-450); RBC Distribution Width CV 16.6 % (11.6-14.6); RBC Distribution Width SD 55.3 fl (35.1-43.9); Red Blood Count 2.84 M/mm3 (4.2-5.4); White Blood Count 11.4 K/mm3 (4.4-11.0)
[2020-09-26 07:56] LABS: Anion Gap 7 (5-15); BUN 23 mg/dL (7-18); BUN/Creat Ratio 7.8 RATIO (10-20); Calcium,Total 7.3 mg/dL (8.5-10.1); Chloride 95 mmol/L (98-107); Creatinine, Serum 2.95 mg/dL (0.55-1.02); EST Glomerular Filtration Rate 17 mL/min (>60); Est Glom Filt Rate - Afr Amer 21 mL/min (>60); Glucose 80 mg/dL (74-106); Potassium 3.7 mmol/L (3.5-5.1); Sodium Level 132 mmol/L (136-145)
[2020-09-26 08:22] LABS: International Normalized Ratio 3.8; Prothrombin Time (Protime)PT. 37.4 SECONDS (11.7-14.9)
[2020-09-26] MEDS: Phytonadione (Vit K1) 5 MG TABLET PO (10:27)
[2020-09-26] MEDS: Metoprolol(XL)Succ 25 MG Tablet PO (10:28)
[2020-09-26] MEDS: SEVELAMER CARBONATE 800 MG TABLET 2400 MG PO ×2 (10:28→12:32)
[2020-09-26] MEDS: Fluticasone 0.05% 1 SPRAY NASAL.SRY 2 SPRAY NASAL (10:28)
[2020-09-26] MEDS: predniSONE 5 MG Tablet PO (10:28)
[2020-09-26] MEDS: Pantoprazole Sodium 40 MG Tablet PO (10:29)
--- NOTE | 2020-09-26 12:22 | PCM.DC ---
- Discharge Diagnoses Current Active Problems: Current Active and Chronic Problems (Last Reviewed 09/23/20 @ 04:[address] Marc Snow MD) Generalized weakness (Acute) ESRD (end stage renal disease) on dialysis (Chronic) Hyperkalemia (Chronic) Anemia (Chronic) Chronic renal failure (Chronic) Diarrhea (Acute) GI bleed (Acute) NSTEMI (non-ST elevated myocardial infarction) (Chronic) Dialysis patient (Chronic) Elevated troponin (Chronic) Congestive heart failure (Chronic) Rheumatoid arthritis (Chronic) Amyloidosis (Chronic) CKD (chronic kidney disease) stage 4, GFR 15-29 ml/min (Chronic) Renal anasarca (Chronic) You will use the following diet at home:: Renal (restricted protein/sodium) Your food should be the consistency of: Regular Your liquids should be the consistency of: Regular/Thin Discharge Activity: Return to Normal Activity Instructions: ED Diarrhea, Unknown Cause Additional Instructions: Ask your primary care physician about having follow up blood work including CBC, GGT, CMP, and INR. Allergies/Adverse Reactions: Allergies No Known Allergies Allergy (Verified 09/22/20 18:04) Medications to take at Discharge Sevelamer Carbonate 3 tab PO TIDCM 10/29/19 Alprazolam [Xanax] 1 mg PO TID PRN PRN 06/23/20 Fluticasone 0.05% [Flonase Nasal [place]] 2 spray NASAL DAILY PRN PRN 06/23/20 Prednisone 2.5 mg PO 1200 06/23/20 Metoprolol(XL)Succ [Toprol Xl (Beta Azra)] 25 mg PO DAILY #0 07/05/20 Diphenoxylate/Atrop [Lomotil] 1 tab PO BID PRN PRN #6 tab 09/22/20 Prednisone 5 mg PO BREAKFAST 09/22/20 Acetaminophen [Tylenol] 500 mg PO Q6H PRN PRN 09/23/20 Omeprazole 40 mg PO DAILY #60 capsule. 09/25/20 Sucralfate [Carafate] 1 gm PO 1HR_ACHS #100 tab 09/25/20 Pantoprazole Sodium [Protonix] 40 mg PO BID #60 tab 09/26/20 Vancomycin [Vancocin] 125 mg PO Q6H #53 cap 09/26/20 The following prescriptions were given: Sucralfate [Carafate] 1 gm PO 1HR_ACHS #100 tab Transmission Status: Received by [facility] Diphenoxylate/Atrop [Lomotil] 1 tab PO BID PRN PRN #6 tab PRN Reason: Diarrhea Prescription Printed Omeprazole 40 mg PO DAILY #60 capsule.dr Transmission Status: Received by [facility] Pantoprazole Sodium [Protonix] 40 mg PO BID #60 tab Prescription Printed Vancomycin [Vancocin] 125 mg PO Q6H #53 cap Prescription Printed Primary Care Physician: Jabier Arboleda DO [Primary Care Provider] - 1-2 Days if not improving Test Results: Test results from this visit will be discussed in further detail at your follow-up appointment, if applicable. Please Follow Up With: Yulisa Sterling MD - Routine Dialysis When: as directed Please Follow Up With: Mamadou Fletcher MD - General Surgery When: 2 weeks Please Follow Up With: Roe Foy MD - Re: Recurrent C diff. When: 2 weeks Proposed Discharge Date: 09/26/20
[2020-09-26] MEDS: predniSONE 5 MG Tablet 2.5 MG PO (12:33)
--- NOTE | 2020-09-26 12:49 | PCM.DC.SUM ---
<Bridger Haro - Last Filed: 09/26/20 12:49> Discharge Date and Diagnosis - Problem List Patient Problems: Active and Suspected Problems (Last Reviewed 09/23/20 @ 04:[address] Marc Snow MD) Generalized weakness (Acute) Diarrhea (Acute) GI bleed (Acute) Date of Admission: 09/22/20 Date of Discharge: 09/26/20 - Primary Discharge Diagnosis Acute Problems: Active Problems (Last Reviewed 09/23/20 @ 04:[address] Marc Snow MD) Acute blood loss anemia 2/2 GI bleed, 2/2 gastritis elevated INR suspect 2/2 amyloidosis C diff colitis ESRD - Secondary Discharge Diagnosis Chronic Problems: Chronic Problems (Last Reviewed 09/23/20 @ 04:[address] Marc Snow MD) ESRD (end stage renal disease) on dialysis (Chronic) Hyperkalemia (Chronic) Anemia (Chronic) Chronic renal failure (Chronic) NSTEMI (non-ST elevated myocardial infarction) (Chronic) Dialysis patient (Chronic) Elevated troponin (Chronic) Congestive heart failure (Chronic) Rheumatoid arthritis (Chronic) Amyloidosis (Chronic) CKD (chronic kidney disease) stage 4, GFR 15-29 ml/min (Chronic) Renal anasarca (Chronic) Hospital Course and Treatment Imaging Results: CT/Abdomen/Pelvis W IV Cont ONLY IMPRESSION: Heterogeneous enhancement of the liver with multiple hepatic cysts. Small amount of perihepatic and perisplenic fluid as well as a small amount of fluid in the pelvis. Mildly distended gallbladder with pericholecystic fluid. Nonspecific bilateral perinephric stranding. Sigmoid diverticulosis. EEG Report: Impression: - Normal esophagus. - Chronic gastritis with hemorrhage. - Normal examined duodenum. - No specimens collected. Recommendation: - [facility] patient [facility]. - Advance diet as tolerated. - Continue present medications. - Use sucralfate tablets 1 gram PO QID. Operations: None Procedures: Blood transfusion, EGD Summary of Care Provided: Hospital Course: The patient is a 65 year old F with pmhx as above who presented to the ER with 3 weeks of diarrhea and black stools. She was found to be anemic with positive hemoccult study. The patient was taking aspirin and ibuprofen at home. These were discontinued. She was started on IV PPI. CT abdomen showed hepatic cysts and some abdominal fluid, mildly distendid gallbladder. LFTs were somewhat abnormal but T bili was normal. Hepatitis panel was negative. General surgery was consulted. She was taken for EGD. She was noted to have bleeding gastritis. She was started on carafate in addition to PPI. She continued to have diarrhea and WBC increased. She was positive for C diff. She was placed on oral vancomycin. She was also noted to have elevated INR tho she is not on warfarin, likely due to underlying amyloidosis. She was given a dose of vitamin K in case she has some underlying deficiency. She will need her INR checked at follow up. She will also need a CBC and CMP, as well as a GGT in a week. She was discharged home in stable condition. She was advised to further aspirin or ibuprofen or any NSAIDs at this time. Continue PPI BID and carafate. PO vancomycin to complete 14 day therapy. Follow up with PCP 1-2 weeks, General surgery 2 weeks, nephrology for routine dialysis, and infectious disease regarding recurrent C diff in 2 weeks. This patient was seen by Bridger Haro PA-C under the supervision of Dr. Smith. [] Patient Problems: Active and Suspected Problems (Last Reviewed 09/23/20 @ 04:[address] Marc Snow MD) Generalized weakness (Acute) Diarrhea (Acute) GI bleed (Acute) - Physical Exam Vitals/I&O's: Vital Signs Temp Pulse Resp BP Pulse Ox 97.8 F 103 H 18 124/74 H 98 09/26/20 09:50 09/26/20 10:28 09/26/20 09:50 09/26/20 10:28 09/26/20 09:50 Oxygen Delivery Method Room Air Weight: 180 lb 12.465 oz Body Mass Index (BMI) 29.2 Finger Stick Blood Glucose 143 Intake and Output for Last 24 Hours 09/24/20 09/25/20 09/26/20 23:59 23:59 23:59 Intake Total 920 / 920 1620 / 1620 940.5 / 940.5 Output Total 50 / 50 0 / 0 0 / 0 Balance 870 / 870 1620 / 1620 940.5 / 940.5 General: Alert, Oriented x3, Cooperative HEENT: Atraumatic, PERRLA, EOMI, Normocephalic Neck: Supple, No JVD, Negative Carotid Bruits Lungs: Clear to auscultation, Normal air movement Cardiovascular: Regular rate, No murmurs Abdomen: Bowel Sounds Present, Soft, Non Tender Extremities: No edema, Capillary Refill Less than 3 Seconds Skin: No rashes, No breakdown Musculoskeletal: No Tenderness to Palpation of Joints or Extremities Neurological: Cranial nerves II-XII grossly intact Psych/Mental Status: Normal Affect, Appropriate, Alert and oriented to time, place, person, mood and affect Microbiology Past 72 Hours 09/23/20 17:55 Mucosa - Nose SARS-CoV-2 Antigen (Rapid) - Final SARS-CoV-2 (COVID 19) 09/22/20 22:15 Stool Stool Lactoferrin - Final 09/22/20 22:15 Stool Enteric Bacteriology - Final 09/22/20 22:15 Stool C. difficile GDH Antigen & Toxins - Final 09/22/20 22:15 Stool C. difficile DNA Amplification - Final 09/22/20 22:15 Stool Stool Occult Blood (ANA) - Final Occult Blood Positive Laboratory Results 09/25/20 13:09: Hgb 9.1 L, Hct 29.1 L 09/26/20 06:20: WBC 11.4 H, RBC 2.84 L, Hgb 8.0 L, Hct 25.9 L, MCV 91.2, MCH 28.2, MCHC 30.9 L, RDW Std Deviation 55.3 H, RDW Coeff of Mika 16.6 H, Plt Count 454 H, MPV 10.7, Immature Gran % (Auto) 0.500, Neut % (Auto) 83.6 H, Lymph % (Auto) 8.3 L, [place] % (Auto) 6.2, Eos % (Auto) 1.2, Baso % (Auto) 0.2, Absolute Neuts (auto) 9.5 H, Absolute Lymphs (auto) 0.94, Nucleated RBC % 0 09/26/20 06:20: PT 37.4 H, INR 3.8 H* 09/26/20 06:20: Sodium 132 L, Potassium 3.7, Chloride 95 L, Carbon Dioxide 30.0, Anion Gap 7, BUN 23 H, Creatinine 2.95 H, Estim Creat Clear Calc 17.80, Est GFR (MDRD) Af Amer 21 L, Est GFR (MDRD) Non-Af 17 L, BUN/Creatinine Ratio 7.8 L, Glucose 80, Calcium 7.3 L Current Medications Acetaminophen (Acetaminophen 500 Mg Tablet) 500 mg PO Q6H PRN PRN PRN Reason: Pain 1-10 or Fever Last Admin: 09/25/20 22:15 Dose: 500 mg Documented by: Alprazolam (Alprazolam 0.5 Mg Tablet) 1 mg PO TID PRN PRN PRN Reason: ANXIETY Last Admin: 09/24/20 22:40 Dose: 1 mg Documented by: Fluticasone Propionate (Fluticasone 0.05% 1 [place] Nasal.Sry) 2 spray NASAL DAILY [facility] Last Admin: 09/26/20 10:28 Dose: 2 spray Documented by: Heparin Sodium (Porcine) (Heparin 10,000 Units/10 Ml Vial) 2,500 units IV UD PRN PRN Reason: Dialysis Cath Heparin Flush Sodium Chloride () 250 mls @ 15 mls/hr IV .[id number] PRN PRN Reason: Saline Flush Last Infusion: 09/26/20 06:41 Dose: 0 mls/hr Documented by: Sodium Chloride () 250 mls @ 15 mls/hr IV .[id number] PRN PRN Reason: Additional IVPB Infusion Melatonin (Melatonin 3 Mg Tablet) 3 mg PO QHS PRN PRN PRN Reason: INSOMNIA Last Admin: 09/24/20 22:40 Dose: 3 mg Documented by: Metoprolol Succinate (Metoprolol(Xl)Succ 25 Mg Tablet) 25 mg PO DAILY [facility] Last Admin: 09/26/20 10:28 Dose: 25 mg Documented by: Ondansetron HCl (Ondansetron 4 Mg/2 Ml Vial) 4 mg IV Q8H PRN PRN PRN Reason: NAUSEA/VOMITING Last Admin: 09/23/20 14:15 Dose: 4 mg Documented by: Pantoprazole Sodium (Pantoprazole Sodium 40 Mg Tablet) 40 mg PO BID [facility] Last Admin: 09/26/20 10:29 Dose: 40 mg Documented by: Prednisone (Prednisone 5 Mg Tablet) 2.5 mg PO 1200 [facility] Last Admin: 09/26/20 12:33 Dose: 2.5 mg Documented by: Prednisone (Prednisone 5 Mg Tablet) 5 mg PO BREAKFAST [facility] Last Admin: 09/26/20 10:28 Dose: 5 mg Documented by: Sevelamer Carbonate (Sevelamer Carbonate 800 Mg Tablet) 2,400 mg PO TIDCM [facility] Last Admin: 09/26/20 12:32 Dose: 2,400 mg Documented by: Sodium Chloride (0.9% Saline Lock 10 Ml Syringe) 10 - 40 ml IV UD PRN PRN Reason: SALINE FLUSH Last Admin: 09/25/20 13:41 Dose: 10 ml Documented by: Sucralfate (Sucralfate 1 Gm Tablet) 1 gm PO 1HR_ACHS [facility] Last Admin: 09/26/20 11:42 Dose: 1 gm Documented by: Vancomycin HCl (Vancomcyin 125 Mg/5 Ml Susp Po.Syringe) 125 mg PO Q6 [facility] Last Admin: 09/26/20 12:37 Dose: 125 mg Documented by: Discharge Diet: Renal Diet Discharge Activity: Return to Normal Activity Home Medications: Medications to take at Discharge Sevelamer Carbonate 3 tab PO TIDCM 10/29/19 Alprazolam [Xanax] 1 mg PO TID PRN PRN 06/23/20 Fluticasone 0.05% [Flonase Nasal [place]] 2 spray NASAL DAILY PRN PRN 06/23/20 Prednisone 2.5 mg PO 1200 06/23/20 Metoprolol(XL)Succ [Toprol Xl (Beta Azra)] 25 mg PO DAILY #0 07/05/20 Diphenoxylate/Atrop [Lomotil] 1 tab PO BID PRN PRN #6 tab 09/22/20 Prednisone 5 mg PO BREAKFAST 09/22/20 Acetaminophen [Tylenol] 500 mg PO Q6H PRN PRN 09/23/20 Omeprazole 40 mg PO DAILY #60 capsule. 09/25/20 Sucralfate [Carafate] 1 gm PO 1HR_ACHS #100 tab 09/25/20 Pantoprazole Sodium [Protonix] 40 mg PO BID #60 tab 09/26/20 Vancomycin [Vancocin] 125 mg PO Q6H #53 cap 09/26/20 Following Prescriptions Were Given to Patient: Sucralfate [Carafate] 1 gm PO 1HR_ACHS #100 tab Transmission Status: Received by [facility] Diphenoxylate/Atrop [Lomotil] 1 tab PO BID PRN PRN #6 tab PRN Reason: Diarrhea Prescription Printed Omeprazole 40 mg PO DAILY #60 capsule. Transmission Status: Received by [facility] Pantoprazole Sodium [Protonix] 40 mg PO BID #60 tab Prescription Printed Vancomycin [Vancocin] 125 mg PO Q6H #53 cap Prescription Printed Primary Care Physician: Jabier Arboleda DO [Primary Care Provider] - 1-2 Days if not improving Please Follow Up With: Yulisa Sterling MD - Routine Dialysis When: as directed Please Follow Up With: Mamadou Fletcher MD - General Surgery When: 2 weeks Please Follow Up With: Roe Foy MD - Re: Recurrent C diff. When: 2 weeks Patient Instructions: ED Diarrhea, Unknown Cause Disposition: Home Minutes spent on discharge:: 40 Patient Condition:: Stable Medical Necessity - Tobacco Use Smoking Status: Never smoker Meaningful Use Info Meaningful Use Diagnoses (Choose all that apply): None applicable <Marcell Smith - Last Filed: 09/26/20 14:25> Discharge Date and Diagnosis - Primary Discharge Diagnosis Acute Problems: Active Problems (Last Reviewed 09/23/20 @ 04:[address] Marc Snow MD) Generalized weakness (Acute) Diarrhea (Acute) GI bleed (Acute) - Secondary Discharge Diagnosis Chronic Problems: Chronic Problems (Last Reviewed 09/23/20 @ 04:[address] Marc Snow MD) ESRD (end stage renal disease) on dialysis (Chronic) Hyperkalemia (Chronic) Anemia (Chronic) Chronic renal failure (Chronic) NSTEMI (non-ST elevated myocardial infarction) (Chronic) Dialysis patient (Chronic) Elevated troponin (Chronic) Congestive heart failure (Chronic) Rheumatoid arthritis (Chronic) Amyloidosis (Chronic) CKD (chronic kidney disease) stage 4, GFR 15-29 ml/min (Chronic) Renal anasarca (Chronic) Hospital Course and Treatment Summary of Care Provided: The patient is a 65 year old F [] - Physical Exam Vitals/I&O's: Vital Signs Temp Pulse Resp BP Pulse Ox 97.7 F L 108 H 18 115/55 L 95 09/26/20 13:31 09/26/20 13:31 09/26/20 13:31 09/26/20 13:31 09/26/20 13:31 Oxygen Delivery Method Room Air Weight: 180 lb 12.465 oz Body Mass Index (BMI) 29.2 Finger Stick Blood Glucose 143 Intake and Output for Last 24 Hours 09/24/20 09/25/20 09/26/20 23:59 23:59 23:59 Intake Total 920 / 920 1620 / 1620 940.5 / 940.5 Output Total 50 / 50 0 / 0 0 / 0 Balance 870 / 870 1620 / 1620 940.5 / 940.5 Microbiology Past 72 Hours 09/23/20 17:55 Mucosa - Nose SARS-CoV-2 Antigen (Rapid) - Final SARS-CoV-2 (COVID 19) 09/22/20 22:15 Stool Stool Lactoferrin - Final 09/22/20 22:15 Stool Enteric Bacteriology - Final 09/22/20 22:15 Stool C. difficile GDH Antigen & Toxins - Final 09/22/20 22:15 Stool C. difficile DNA Amplification - Final 09/22/20 22:15 Stool Stool Occult Blood (ANA) - Final Occult Blood Positive Laboratory Results 09/26/20 06:20: WBC 11.4 H, RBC 2.84 L, Hgb 8.0 L, Hct 25.9 L, MCV 91.2, MCH 28.2, MCHC 30.9 L, RDW Std Deviation 55.3 H, RDW Coeff of Mika 16.6 H, Plt Count 454 H, MPV 10.7, Immature Gran % (Auto) 0.500, Neut % (Auto) 83.6 H, Lymph % (Auto) 8.3 L, [place] % (Auto) 6.2, Eos % (Auto) 1.2, Baso % (Auto) 0.2, Absolute Neuts (auto) 9.5 H, Absolute Lymphs (auto) 0.94, Nucleated RBC % 0 09/26/20 06:20: PT 37.4 H, INR 3.8 H* 09/26/20 06:20: Sodium 132 L, Potassium 3.7, Chloride 95 L, Carbon Dioxide 30.0, Anion Gap 7, BUN 23 H, Creatinine 2.95 H, Estim Creat Clear Calc 17.80, Est GFR (MDRD) Af Amer 21 L, Est GFR (MDRD) Non-Af 17 L, BUN/Creatinine Ratio 7.8 L, Glucose 80, Calcium 7.3 L Addendum: Dr. Smith I personally examined the patient and reviewed the chart. I agree with the above. 65-year-old female presented from home with diarrhea and dark stools. It is very similar to her previous episode in May 2020. She denies any significant abdominal pain at this time, however her hemoglobin is down to 6.8 so she will be transfused 2 units with dialysis. Also she continues to have C. difficile antigen and DNA but no toxin therefore unlikely to have a C. difficile infection at this time we will continue to monitor white count and fever curve. She does have a history of amyloidosis which apparently can increase INR however in May, her INR was normal therefore will obtain hepatitis panel. Plan for EGD in the morning. 09/24/2020: She was about the same as she did yesterday. Hemoglobin is much improved after the 2 units during dialysis yesterday. INR remains elevated at 3.8 as is her alk phos though it is trending down. Hepatitis panel is pending for evaluation however now she also has a white count of 14.1, she remains afebrile so we will just monitor for now as she does not have any signs of infection. She did have her EGD today which demonstrated a chronic gastritis with hemorrhage. Continue with PPI and Carafate. 09/26/2020: Feels better today, her diarrhea slowed down and she does not have any more abdominal pain. Her hemoglobin is stable, she is highly variable but usually anywhere between 7.3 and 9. She does need follow-up as an outpatient with her PCP for repeat CBC, BMP as well as an INR. Unsure as to the etiology of her INR elevation, her LFTs were unremarkable. Her alk phos was elevated therefore would recommend an outpatient GGT to clarify origin of the alk phos. She was also given a dose of vitamin K today as with her and amyloidosis she could have a vitamin K deficiency leading to the elevation in the INR. Her leukocytosis started to resolve again, she went from 19.1 to 11.4 on the day of discharge. She was initiated back on p.o. vancomycin, despite the fact that her C. difficile was negative for toxin is still was present with antigen and DNA therefore I would recommend that since this is her second treatment for C. difficile that she follow-up with infectious disease as an outpatient. I discussed with her the plan for discharge and she expressed understanding of the risk and benefits of going home and would like to go home today Inpatient E&M: [id number] Disch Hosp
--- NOTE | 2020-09-28 16:17 | CASEMGMT ---
BELKYS COTTRELL Discharge Follow-up Phone Call: LINDA: Rosa M Strata: 4 Call Date: 09/28/20 Discharge Date: 09/26/20 Time of Call: 1615 Duration: 1 min Admitting Diagnosis: acute blood loss anemia BELKYS COTTRELL attempted to complete follow-up phone call after recent hospitalization. No answer, voice message left with return contact information. Patient was scheduled for HD today.
== END 2020-09-26 13:36 | disposition home or self-care (01) | DRG 377 ==
LOC: ED 19:24 → MS3 09-23 00:16
PROVIDERS: Nurse Practitioner Family; Physician Assistant; Surgery; Admitting Provider Hospitalist; Emergency Provider Emergency Medicine; PCP Family Medicine; Visit Provider Family Medicine
PROC: 0DJ08ZZ Inspection of Upper Intestinal Tract, Via Natural or Artificial Opening Endoscopic (ICD-10-PCS; CPT 43235; principal; 2020-09-24 08:25)
DX: K92.1 Melena (principal); N18.6 End stage renal disease; N04.9 Nephrotic syndrome with unspecified morphologic changes; I13.2 Hypertensive heart and chronic kidney disease with heart failure and with stage 5 chronic kidney disease, or end stage renal disease; I50.32 Chronic diastolic (congestive) heart failure; D62 Acute posthemorrhagic anemia; A04.71 Enterocolitis due to Clostridium difficile, recurrent; E85.89 Other amyloidosis; K29.51 Unspecified chronic gastritis with bleeding; K76.89 Other specified diseases of liver; E87.5 Hyperkalemia; D63.1 Anemia in chronic kidney disease; I25.2 Old myocardial infarction; Z99.2 Dependence on renal dialysis; M06.9 Rheumatoid arthritis, unspecified; I27.20 Pulmonary hypertension, unspecified; F41.9 Anxiety disorder, unspecified; F32.9 Major depressive disorder, single episode, unspecified; R10.84 Generalized abdominal pain; R79.1 Abnormal coagulation profile; Z86.16 Personal history of COVID-19; Z79.82 Long term (current) use of aspirin; Z79.899 Other long term (current) drug therapy
CPT/HCPCS: 36415; 74177; 80048; 80053; 80076; 82274; 83630; 85014; 85018; 85025; 85027; 85610; 85730; 86704; 86705; 86706; 86708; 86709; 86803; 86850; 86900; 86901; 86920; 87177; 87209; 87340; 87426; 87493; 87506; 87635; 90937; 93005; 97162; 97166; 99285; J7030; J7040; J7050; P9016; Q9967; A4216; G0257; J2405; J3490; U0002

== ENCOUNTER 2020-10-11 17:09 | Inpatient (IN) | payer OTHER, SELFPAY ==
[2020-09-24 06:59] VITALS: BMI 29.2
[2020-10-11] VITALS (11 sets, daily range): BP systolic 105–132; BP diastolic 66–90; PULSE 86–106; RESP 14–21; TEMP 36.1–37.1; O2SAT 94–99; BMI 28.4; BMI 27.3
--- NOTE | 2020-10-11 17:55 | EKG12_ITS ---
Test Reason : Blood Pressure : / mmHG Vent. Rate : 089 BPM Atrial Rate : 089 BPM P-R Int : 188 ms QRS Dur : 100 ms QT Int : 398 ms P-R-T Axes : 078 -52 140 degrees QTc Int : 484 ms Normal sinus rhythm Left anterior fascicular block T wave abnormality, consider lateral ischemia Abnormal ECG Confirmed by RADHA LOZANO, TIMOTHY ([id number]), news editor EDIS JACOBS ([id number]) on 10/13/2020 11:34:26 AM Referred By: HERMELINDO Confirmed By:TIMOTHY GARCIA MD
--- NOTE | 2020-10-11 18:30 | ED.RN ---
IV INSERTED BY Kitty HATFIELD BUT UNABLE TO OBTAIN BLOOD. LAB CALLED AND ALSO UNABLE TO OBTAIN BLOOD. DR CASAREZ NOTIFIED AND FEMORAL STICK OBTAINED.
[2020-10-11 19:21] LABS: Absolute Lymphocyte Count 1.08 X10^3/uL (0.83-4.51); Absolute Neutrophil Count 15.9 X10^3/uL (2.0-7.7); Basophil# 0.02 X10^3/uL; Basophil% 0.1 % (0-1); Eosinophil# 0.01 X10^3/uL; Eosinophils% 0.1 % (0-5); Hematocrit 23.1 % (37-47); Hemoglobin 7.1 g/dL (12.0-15.0); Lymphocyte # 1.08 X10^3/ul (4.0); Lymphocyte % 6.1 % (19-41); Mean Corp Hgb Conc 30.7 g/dL (32-36); Mean Corpuscular Hgb 28.3 pg (27.0-32.0); Mean Platelet Vol. 10.3 fl (6.2-12.0); Monocyte# 0.44 X10^3/uL; Monocyte% 2.5 % (0-10); NRBC Flagged by Analyzer 1.5 % (0-5); Neutrophil # 15.88 X10^3/uL (2.7-7.7); POSITIVE MORPHOLOGY YES; Platelet Count 677 K/mm3 (150-450); RBC Distribution Width CV 21.7 % (11.6-14.6); RBC Distribution Width SD 61.2 fl (35.1-43.9); Red Blood Count 2.51 M/mm3 (4.2-5.4); White Blood Count 17.7 K/mm3 (4.4-11.0)
[2020-10-11 19:27] LABS: Differential Indicated SCAN CRITERIA MET
[2020-10-11 19:28] LABS: Mucous, Urine 0 SEEN /hpf (<or=2+); White Blood Cells 0 SEEN /hpf (0-5)
[2020-10-11 19:36] LABS: Color, Urine Amber (Yellow); Glucose, Dipstick Normal (Normal); Ketone-Dipstick 5 mg/dl (Negative); Leukocyte Esterase-Dipstick Negative /ul (Negative); Nitrite-Dipstick Negative (Negative); Occult Blood-Urine 250 /ul (Negative); Protein-Dipstick 500 mg/dl (Negative); Urine Bilirubin Dipstick Negative (Negative); Urine Clarity Turbid (Clear); Urine Urobilinogen Normal (Normal)
[2020-10-11 19:37] LABS: Anion Gap 6 (5-15); BUN 38 mg/dL (7-18); BUN/Creat Ratio 9.1 RATIO (10-20); Calcium,Total 8.4 mg/dL (8.5-10.1); Chloride 96 mmol/L (98-107); Creatinine, Serum 4.18 mg/dL (0.55-1.02); EST Glomerular Filtration Rate 11 mL/min (>60); Est Glom Filt Rate - Afr Amer 14 mL/min (>60); Estimated Creatinine Clearance 12.56 ml/min; Glucose 111 mg/dL (74-106); Potassium 4.9 mmol/L (3.5-5.1); Sodium Level 134 mmol/L (136-145)
--- NOTE | 2020-10-11 19:38 | ED.DCSUM_ITS ---
History of Present Illness Chief Complaint: GI Bleed Detail of Chief Complaint: Blood per rectum and hematuria Informant: Patient, Significant Other Onset: Days - 4 days ago Context: Sudden Onset Timing: Continuous, Intermittent - Blood per rectum with bowel movement Quality: Gross hematuria and blood per rectum Location: and GI Current Severity: Moderate Maximum Severity: Moderate Worsened by: Nothing Relieved by: Nothing Associated Symptoms: Dysuria and frequency and urgency Narrative: Patient is an elderly woman who presents with gross hematuria that started 4 days ago associated with dysuria and urgency. She also complains of blood per rectum. She does have history of hemorrhoids. She denies history of diverticulosis. She denies history of peptic ulcer disease. She reports cramping abdominal pain. The abdominal pain is located over the suprapubic region. She is not on anticoagulant. She denies fever, chills night sweats. She denies headache, visual, ocular auditory symptoms. She denies cardiac respiratory symptoms. Denies orthostatic symptoms. She denies bruising easily. She denies problems with balance. She denies paresthesia, anesthesia or motor weakness. Prior similar symptoms: No Recent Illness/Hospitalization: No - Past Medical History (1) GI bleed Status: Acute (2) Amyloidosis Status: Chronic (3) CKD (chronic kidney disease) stage 4, GFR 15-29 ml/min Status: Chronic (4) Congestive heart failure Status: Chronic (5) ESRD (end stage renal disease) on dialysis Status: Chronic (6) Rheumatoid arthritis Status: Chronic (7) COVID-19 Status: Inactive Past Medical History - Allergies and Home Meds Allergies/Adverse Reactions: Allergies No Known Allergies Allergy (Verified 10/11/20 17:10) Prior records reviewed: Yes Surgical History: appendectomy, tonsillectomy, - - Left forearm AV fistula; tubal ligation Lives: Spouse/ Significant Other Smoking Status: Never smoker Alcohol: None Drugs: None - Family History Paternal Family History: Reports: Diabetes, Heart Disease, - Maternal Family History: Reports: - - Denies known maternal medical history including cardiac history. Review of Systems General: Reports: Malaise. Denies: Chills, Fever, Subjective, Sweats Eyes: Denies: Visual changes - bilaterally, Blurred Vision - bilaterally, Diplopia ENT: Denies: Bilateral ear pain, Rhinorrhea, Sore throat Cardiovascular: Denies: Chest pain, Palpitations Respiratory: Denies: Dyspnea, Cough, Dyspnea on exertion, Orthopnea, Paroxysmal nocturnal dyspnea Gastrointestinal: Reports: Abdominal pain, Hematochezia. Denies: Nausea, Vom iting, Diarrhea, Constipation, Melena Genitourinary: Reports: Dysuria, Hematuria, Frequency Musculoskeletal: Denies: Myalgias, Arthralgias, Neck pain, Back pain, Swelling, Extremity Pain, -, - Skin: Denies: Rash, Wounds Neurological: Reports: Weakness. Denies: Headache, Parasthesia Endocrine: Denies: Polyuria, Polydipsia Hematologic: Denies: Easy bruising Allergy: Denies: Uticaria Physical Exam Vital Signs/Narrative: Vital Signs Temp Pulse Resp BP Pulse Ox 10/11/20 19:10 103 H 19 H 113/75 94 10/11/20 17:10 98.0 F 106 H 14 129/82 H 99 Inital Vital Signs reviewed: Yes General: Well nourished, Well developed, Obese, No Acute Distress Head: Normocephalic, Atraumatic Eyes: Perrl, EOMI, Pale conjunctiva. Negative for: Scleral icterus ENT: Moist mucous membranes, No rhinorrhea, TM's clear Neck: Supple, Nontender, No lymphadenopathy, No JVD Cardiovascular: Regular rate, No murmurs, Normal S1, Normal S2, Tachycardia Respiratory: No distress, CTA bilaterally, Chest nontender Abdomen: Soft, Nondistended, Normal bowel sounds, No masses, Tender - Over the suprapubic region. Rectal: - - External hemorrhoids noted. No active bleeding. Stool is brown. : - - Rivas placed with gross hematuria noted. Back: Nontender, Normal Inspection Extremities: Nontender, No edema Skin: No rash, No Trauma, Pallor. Negative for: Normal color, Cyanosis, Diaphoresis, Jaundice Neurological: Alert, Oriented x3, Cranial nerves II-XII grossly intact, Normal Strength, Normal Sensation Psychological: Normal affect, Normal Mood Diagnostic/Tx/Re-eval - EKG Initial EKG Interpretation: Sinus Rhythm - This rhythm with ventricular rate 89. NE interval is 108 ms. Cures duration 100 ms. QT duration 398 ms. [place] to the left. There is evidence of a left anterior fascicular block. There is also T wave abnormality. EKG was performed at 1810. - Medical Decision Making Complain of dysuria, frequency and gross hematuria suspect patient has a complex urinary tract infection possible sepsis. She is tachycardic. Sepsis work-up was initiated. She was treated with 1 g of Rocephin since her white count is elevated. Additional labs are pending at time of this note 1941. - Critical Care Time Critical care time (excluding procedures): 30-74 minutes - Care time 32 minutes includes obtaining history, physical, documentation, review of prior records, discussion with urologist and hospitalist., Discussing w/Patient &/or Family/Weigh Box Tender, Discussing w/Consultants, Arranging Admission or Transfer Procedures Procedure(s): Nurses unable to obtain blood. Blood was obtained from the right femoral vein by me. ED Disposition - Plan for ED Patient: Disposition: Acute Care Hospital [facility] Diagnosis: Severe sepsis, Urinary tract infection with hematuria, Anemia due to blood loss
[2020-10-11] MEDS: Morphine 4 MG/ML Syringe IV (19:44)
[2020-10-11] MEDS: Ondansetron 4 MG/2 ML Vial IV (19:44)
[2020-10-11 19:46] LABS: Amorphous Sediment 1+ PHOS; Bacteria 1+ /hpf (None Seen); Red Blood Cells-Urine > 100 SEEN /hpf (0-5); Squamous Epithelial Cells - UA 0-5 SEEN /hpf (5-10)
--- NOTE | 2020-10-11 19:53 | ED.RN ---
UNABLE TO OBTAIN BLOOD CULTURES AT THIS TIME AND UNABLE TO OBTAIN CULTURES FROM FEMORAL STICK. DR CASAREZ NOTIFIED WILL ATTEMPT US ASSIST BLOOD DRAW AT THIS TIME BY Kitty HATFIELD
--- NOTE | 2020-10-11 19:54 | ED.RN ---
UNABLE TO ADMINISTER ANTIBIOTIC AT THIS TIME BECAUSE NO BLOOD CULTURES.
[2020-10-11 20:19] LABS: Anisocytosis 3+; Differential Comment SCANNED; Lactic Acid 2.1 mmol/L (0.4-1.9); Platelet Estimate MOD INC (ADEQ)
[2020-10-11 20:20] LABS: Hypochromasia 1+; Polychromasia RARE; Schistocytes RARE; Target Cells 2+
[2020-10-11] MEDS: Ceftriaxone 1 GM/50 ML BAG IV (20:33)
--- NOTE | 2020-10-11 20:35 | ED.RN ---
Yue HATFIELD ABLE TO OBTAIN BLOOD CULTURE AT THIS TIME. SECOND SET OF BLOOD CULTURES OBTAINED FROM SAME SITE, DR HERMELINDO FINE. ABLE TO GIVE ANTIBIOTICS AT THIS TIME.
--- NOTE | 2020-10-11 22:36 | PCM.HP.STD ---
Problem List (1) Severe sepsis Status: Acute (2) ESRD (end stage renal disease) on dialysis Status: Chronic (3) Hyperkalemia Status: Chronic (4) Anemia Status: Chronic (5) Chronic renal failure Status: Chronic (6) Diarrhea Status: Chronic (7) Severe sepsis Status: Acute (8) Urinary tract infection with hematuria Status: Acute (9) Anemia due to blood loss Status: Acute (10) NSTEMI (non-ST elevated myocardial infarction) Status: Chronic (11) Dialysis patient Status: Chronic (12) Elevated troponin Status: Chronic (13) Congestive heart failure Status: Chronic (14) Rheumatoid arthritis Status: Chronic (15) Amyloidosis Status: Chronic (16) CKD (chronic kidney disease) stage 4, GFR 15-29 ml/min Status: Chronic (17) Renal anasarca Status: Chronic History of Present Illness Date of Admission: 10/11/20 Chief Complaint: Gross hematuria The patient is a 65 year old F with a significant history of amyloidosis and end-stage renal disease on dialysis who presents emergency department with a gross hematuria ongoing for about 1 week. Associated with her symptom is urinary urgency and dysuria. Patient reported at baseline she does not make much urine. Patient reports black stool with bright red blood per rectum. Past Medical History Past Medical History (Chronic Problems): Chronic Problems (Last Reviewed 10/11/20 @ 23:[address] Marc Snow MD) ESRD (end stage renal disease) on dialysis (Chronic) Hyperkalemia (Chronic) Anemia (Chronic) Chronic renal failure (Chronic) Diarrhea (Chronic) NSTEMI (non-ST elevated myocardial infarction) (Chronic) Dialysis patient (Chronic) Elevated troponin (Chronic) Congestive heart failure (Chronic) Rheumatoid arthritis (Chronic) Amyloidosis (Chronic) CKD (chronic kidney disease) stage 4, GFR 15-29 ml/min (Chronic) Renal anasarca (Chronic) Medical History: Medical History (Last Reviewed 10/11/20 @ 23:[address] Marc Snow MD) NSTEMI (non-ST elevated myocardial infarction) (Chronic) I21.4 Dialysis patient (Chronic) Z99.2 Acute kidney injury superimposed on CKD (Inactive) N17.9, N18.9 Elevated troponin (Chronic) R79.89 Congestive heart failure (Chronic) I50.9 Rheumatoid arthritis (Chronic) M06.9 Amyloidosis (Chronic) E85.9 CKD (chronic kidney disease) stage 4, GFR 15-29 ml/min (Chronic) N18.4 Renal anasarca (Chronic) N04.9 Hyponatremia (Inactive) E87.1 Allergies No Known Allergies Allergy (Verified 10/11/20 17:10) Home Medications: Ambulatory Orders Medication Instructions Recorded Sevelamer Carbonate 3 tab PO TIDCM 10/29/19 Alprazolam [Xanax] 0.5 mg PO TID PRN PRN 06/23/20 Prednisone 2.5 mg PO TID 06/23/20 Metoprolol(XL)Succ [Toprol Xl 25 mg PO DAILY #0 07/05/20 (Beta Azra)] Acetaminophen [Tylenol] 500 mg PO Q6H PRN PRN 09/23/20 Pantoprazole Sodium [Protonix] 40 mg PO BID #60 tab 09/26/20 Vancomycin [Vancocin] 125 mg PO Q6H #53 cap 09/26/20 Diphenoxylate/Atrop [Lomotil] 1 tab PO BID PRN PRN #6 tab 09/28/20 Indomethacin 25 mg PO TID 10/11/20 Sucralfate [Carafate] 1 gm PO 4X/DAY 10/11/20 Surgical History: appendectomy, tonsillectomy, - - Left forearm AV fistula; tubal ligation Psychiatric History: Anxiety, Depression 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 Paternal History Items: Diabetes, Heart Disease, - Review of Systems Constitutional: Denies: Chills, Fever, Weight Change HEENT: Denies: Head Aches, Sinus Congestion, Sinus Drainage Cardiovascular: Denies: Chest Pain, Palpitations Respiratory: Denies: Cough, Shortness of breath at rest, Sputum production Gastrointestinal: Reports: Hematochezia. Denies: Abdominal Pain, Nausea, Vomiting Genitourinary: Reports: Dysuria, Frequency, Hematuria, Urgency Musculoskeletal: Denies: Joint Pain, Joint Tenderness Skin: Denies: Rash, Wounds Neurological: Denies: Numbness, Tingling, Focal weakness Psychiatric: Denies: Anxiety, Depression, Homicidal Ideations, Suicidal Ideations Hematologic/ Lymphatic: Denies: Easy Bruising, Easy Bleeding VTE Information - Inpt Only VTE Present on Admission: No VTE Mechan Device Prophylaxis: SCD's VTE Pharm Prophylaxis ordered?: No Patient Problems: Active and Suspected Problems (Last Reviewed 10/11/20 @ 23:[address] Marc Snow MD) Severe sepsis (Acute) Urinary tract infection with hematuria (Acute) Anemia due to blood loss (Acute) Severe sepsis (Acute) - Physical Exam Vitals/I&O's: Vital Signs Temp Pulse Resp BP Pulse Ox 98.7 F 88 21 H 125/88 H 97 10/11/20 21:00 10/11/20 21:00 10/11/20 21:00 10/11/20 21:00 10/11/20 21:00 Oxygen Delivery Method Room Air Weight: 79.832 kg Body Mass Index (BMI) 28.4 Finger Stick Blood Glucose 143 Intake and Output for Last 24 Hours 10/09/20 10/10/20 10/11/20 23:59 23:59 23:59 Intake Total 50 / 50 Balance 50 / 50 General: Alert, Oriented x3, Cooperative HEENT: Atraumatic, PERRLA, EOMI, Normocephalic Neck: Supple, No JVD, Negative Carotid Bruits Lungs: Clear to auscultation, Normal air movement Cardiovascular: Regular rate, No murmurs Abdomen: Bowel Sounds Present, Soft, Non Tender Extremities: Capillary Refill Less than 3 Seconds, Edema - Bilateral legs Skin: No rashes, No breakdown Musculoskeletal: No Tenderness to Palpation of Joints or Extremities Neurological: Cranial nerves II-XII grossly intact Psych/Mental Status: Normal Affect, Appropriate Laboratory Results 10/11/20 19:03: Urine Color Mitzi, Urine Clarity Turbid, Urine pH 7.0, Ur Specific [place] 1.010, Urine Protein 500 H, Urine Glucose (UA) Normal, Urine Ketones 5 H, Urine Occult Blood 250 H, Urine Nitrite Negative, Urine Bilirubin Negative, Urine Urobilinogen Normal, Ur Leukocyte Esterase Negative, Urine RBC > 100 SEEN, Urine WBC 0 SEEN, Ur Squamous Epith Cells 0-5 SEEN, Amorphous Sediment 1+ PHOS, Urine Bacteria 1+, Urine Mucus 0 SEEN 10/11/20 19:11: WBC 17.7 H, RBC 2.51 L, Hgb 7.1 L, Hct 23.1 L, MCV 92.0, MCH 28.3, MCHC 30.7 L, RDW Std Deviation 61.2 H, RDW Coeff of Mika 21.7 H, Plt Count 677 H, MPV 10.3, Immature Gran % (Auto) 1.200 H, Neut % (Auto) 90.0 H, Lymph % (Auto) 6.1 L, [place] % (Auto) 2.5, Eos % (Auto) 0.1, Baso % (Auto) 0.1, Absolute Neuts (auto) 15.9 H, Absolute Lymphs (auto) 1.08, Nucleated RBC % 1.5, Differential Comment SCANNED, Diff Path Review May foll, Platelet Estimate MOD INC, Polychromasia RARE, Hypochromasia 1+, Anisocytosis 3+, Target Cells 2+, Schistocytes RARE 10/11/20 19:11: Sodium 134 L, Potassium 4.9, Chloride 96 L, Carbon Dioxide 32.0, Anion Gap 6, BUN 38 H, Creatinine 4.18 H, Estim Creat Clear Calc 12.56, Est GFR (MDRD) Af Amer 14 L, Est GFR (MDRD) Non-Af 11 L, BUN/Creatinine Ratio 9.1 L, Glucose 111 H, Calcium 8.4 L 10/11/20 19:11: Lactic Acid 2.1 H* Assessment/Plan All Active Problems (Last Reviewed 10/11/20 @ 23:[address] Marc Snow MD) Severe sepsis (Acute) Urinary tract infection with hematuria (Acute) Anemia due to blood loss (Acute) Severe sepsis (Acute) The patient is a 65 year old F with a significant history of amyloidosis and end-stage renal disease on dialysis who presents emergency department with a gross hematuria ongoing for about 1 week; urinary urgency and dysuria; found to have a leukocytosis; tachycardia; tachypnea and abnormal urinalysis. Acute blood loss anemia secondary to Gross hematuria and on chronic anemia Emergency Department Doctor discussed the case with Dr. Chaves, urology, who is ok to follow.Urology consult. Patient is dialysis patient. We will hold off IV fluids at this time. If patient become hypotensive will give IV fluids. Admit to intensive care unit. Heat Treat Puller consult. Type and screen ordered at the ED. Trend H&H. Hold home blood pressure medications. Chronic anemia likely secondary to anemia of chronic disease and anemia of renal disease. Severe sepsis Patient with gross hematuria. 1+ bacteria but with no leukocyte esterase and no nitrites. Heart rate of more than 90; respiratory rate of more than 20; leukocytes of 17.7. With bandemia. Of notes all her symptoms could be from gross hematuria. Received ceftriaxone at emergency department. Ceftriaxone continued. Follow urine culture and blood culture. Thrombocytosis Emergency department labs showed thrombocytosis. Trend CBC. Hypertension Blood pressure is stable In view of gross hematuria we will hold off metoprolol so to prevent hypotension. Trend blood pressure and adjust blood pressure medications. C. difficile report that she has about 4 more days of vancomycin for C. difficile. Vancomycin continued. Rheumatoid arthritis Steroids continued. Hold NSAIDs secondary to bleeding Black stool and bright red blood per rectum. Emergency department doctor reports brown stools with hemorrhoids. Clinical monitoring. End-stage renal disease on dialysis Sevelamer continue Nephrology consult. Heart failure preserved ejection fraction Echocardiogram on 09/07/2019 showed ejection fraction of 55 to 60% with concentric left ventricular hypertrophy. Mild to moderate mitral valve insufficiency. Mild tricuspid valve insufficiency. Pulmonary artery systolic pressure was 54. Cautious use of IV fluids recommended. Peptic ulcer disease Protonix and sucralfate continued DVT prophylaxis No chemical thromboprophylaxis secondary to bleeding. SCD ordered. Inpatient E&M: 40806 Init Hosp L3
[2020-10-11 23:19] LABS: Reflex Lactate? Y
[2020-10-12] VITALS (27 sets, daily range): BP systolic 83–125; BP diastolic 46–104; PULSE 82–118; RESP 10–21; TEMP 36.1–37.2; O2SAT 90–98
[2020-10-12 00:25] LABS: Hematocrit 25.4 % (37-47); Hemoglobin 7.8 g/dL (12.0-15.0)
[2020-10-12 00:58] LABS: Lactic Acid 2.5 mmol/L (0.4-1.9)
[2020-10-12] MEDS: Morphine 2 MG/ML Syringe IV (01:02)
[2020-10-12] MEDS: Acetaminophen 500 MG Tablet PO ×2 (01:03→10:19)
[2020-10-12] MEDS: 0.9% Saline Lock 10 ML Syringe IV ×3 (01:04→12:42)
--- NOTE | 2020-10-12 01:45 | NURSING ---
Order received to start continuous bladder irrigation, pt informed and torres care provided; original F/C removed, area cleansed w/betadine swabs, 22fr 3-way catheter inserted following facility policy and procedure, noted return of dark bloody urine, balloon inflated w/30ml NS as per package instructions; NS irrigation fluid and large catheter emptying bag attached, fluids opened wide-up to initiate irrigation. Pt trinity for about 5min fluid returning light pink, then began to writhe in bed, yelling out The pressure, oh it hurts, it hurts. Irrigation fluids slowed, returning urine darker pink now but pt trinity better. Educated pt regarding irrigation purposes again as it appears she has forgotten so quickly. Informed pt that staff will cont to monitor irrigation and fluids returned throughout the night.
[2020-10-12] MEDS: HYDROmorphone 0.5 MG/0.5 ML SYRINGE IV (04:16)
[2020-10-12] MEDS: ALPRAZolam 0.5 MG Tablet PO (04:16)
[2020-10-12 04:37] LABS: Absolute Lymphocyte Count 1.48 X10^3/uL (0.83-4.51); Absolute Neutrophil Count 17.1 X10^3/uL (2.0-7.7); Basophil# 0.02 X10^3/uL; Basophil% 0.1 % (0-1); Eosinophil# 0.04 X10^3/uL; Eosinophils% 0.2 % (0-5); Hematocrit 25.8 % (37-47); Lymphocyte # 1.48 X10^3/ul (4.0); Lymphocyte % 7.6 % (19-41); Mean Corpuscular Hgb 28.2 pg (27.0-32.0); Mean Corpuscular Volume 90.8 fL (81-99); Mean Platelet Vol. 10.1 fl (6.2-12.0); Monocyte% 2.6 % (0-10); NRBC Flagged by Analyzer 1.5 % (0-5); Neutrophil # 17.14 X10^3/uL (2.7-7.7); Neutrophil % 87.6 % (47-70); POSITIVE MORPHOLOGY YES; Platelet Count 719 K/mm3 (150-450); RBC Distribution Width CV 22.8 % (11.6-14.6); RBC Distribution Width SD 60.1 fl (35.1-43.9); Red Blood Count 2.84 M/mm3 (4.2-5.4); White Blood Count 19.6 K/mm3 (4.4-11.0)
[2020-10-12 04:39] LABS: Differential Indicated SCAN CRITERIA MET
[2020-10-12 04:53] LABS: International Normalized Ratio 3.4; Prothrombin Time (Protime)PT. 33.9 SECONDS (11.7-14.9)
[2020-10-12 04:57] LABS: Hypochromasia 2+; Macrocytosis RARE; Polychromasia RARE
[2020-10-12 05:25] LABS: Anion Gap 7 (5-15); BUN 41 mg/dL (7-18); BUN/Creat Ratio 9.1 RATIO (10-20); Chloride 95 mmol/L (98-107); Creatinine, Serum 4.53 mg/dL (0.55-1.02); EST Glomerular Filtration Rate 10 mL/min (>60); Est Glom Filt Rate - Afr Amer 13 mL/min (>60); Estimated Creatinine Clearance 11.59 ml/min; Glucose 103 mg/dL (74-106); Potassium 4.8 mmol/L (3.5-5.1); Sodium Level 134 mmol/L (136-145)
--- NOTE | 2020-10-12 05:46 | PCM.CON.CC ---
Reason for Consult Date of Consultation: 10/12/20 Reason for Consultation: Severe sepsis History of Present Illness: The patient is a 65-year-old female, with a history as outlined below, who presented to the emergency department on October 11 with complaints of hematuria of approximately 3 days duration. The patient also reported associated urinary dysuria and urgency. She denies ever having experienced an episode like this previously. She denies any abdominal pain, nausea or vomiting. The patient is currently on treatment for C. difficile colitis. The patient also has end-stage renal disease on hemodialysis. On presentation to the emergency department, the patient was noted to be afebrile and hemodynamically stable. She was maintaining appropriate oxygen saturations on room air. Laboratory evaluation revealed an elevated white blood cell count to 17,000. The patient was anemic with a hemoglobin of 7.1 g/dL. Chemistry profile was notable for a creatinine of 4.18 with a lactate of 2.1. The patient received supplemental IV fluids and was started on antimicrobials. She was subsequently admitted to the medical intensive care unit, where she has been maintained on continuous bladder irrigation. Urology has been consulted to evaluate the patient. Past Medical History Past Medical History (Chronic Problems): Chronic Problems (Last Reviewed 10/12/20 @ 08:[address] Zach Chaves MD) ESRD (end stage renal disease) on dialysis (Chronic) Hyperkalemia (Chronic) Anemia (Chronic) Chronic renal failure (Chronic) Diarrhea (Chronic) NSTEMI (non-ST elevated myocardial infarction) (Chronic) Dialysis patient (Chronic) Elevated troponin (Chronic) Congestive heart failure (Chronic) Rheumatoid arthritis (Chronic) Amyloidosis (Chronic) CKD (chronic kidney disease) stage 4, GFR 15-29 ml/min (Chronic) Renal anasarca (Chronic) Medical History: Medical History (Last Reviewed 10/12/20 @ 08:[address] Zach Chaves MD) NSTEMI (non-ST elevated myocardial infarction) (Chronic) I21.4 Dialysis patient (Chronic) Z99.2 Acute kidney injury superimposed on CKD (Inactive) N17.9, N18.9 Elevated troponin (Chronic) R79.89 Congestive heart failure (Chronic) I50.9 Rheumatoid arthritis (Chronic) M06.9 Amyloidosis (Chronic) E85.9 CKD (chronic kidney disease) stage 4, GFR 15-29 ml/min (Chronic) N18.4 Renal anasarca (Chronic) N04.9 Hyponatremia (Inactive) E87.1 Allergies No Known Allergies Allergy (Verified 10/11/20 17:10) Home Medications: Ambulatory Orders Medication Instructions Recorded Sevelamer Carbonate 3 tab PO TIDCM 10/29/19 Alprazolam [Xanax] 0.5 mg PO TID PRN PRN 06/23/20 Prednisone 2.5 mg PO TID 06/23/20 Metoprolol(XL)Succ [Toprol Xl 25 mg PO DAILY #0 07/05/20 (Beta Azra)] Acetaminophen [Tylenol] 500 mg PO Q6H PRN PRN 09/23/20 Pantoprazole Sodium [Protonix] 40 mg PO BID #60 tab 09/26/20 Vancomycin [Vancocin] 125 mg PO Q6H #53 cap 09/26/20 Diphenoxylate/Atrop [Lomotil] 1 tab PO BID PRN PRN #6 tab 09/28/20 Indomethacin 25 mg PO TID 10/11/20 Sucralfate [Carafate] 1 gm PO 4X/DAY 10/11/20 Surgical History: appendectomy, tonsillectomy, - - Left forearm AV fistula; tubal ligation Psychiatric History: Anxiety, Depression 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 Paternal History Items: Diabetes, Heart Disease, - Review of Systems Constitutional: Reports: Weakness, Fatigue. Denies: Chills, Fever Eyes: Denies: Blurred vision, Double vision HEENT: Denies: Head Aches, Sinus Congestion, Sinus Drainage Cardiovascular: Denies: Chest Pain, Palpitations Respiratory: Denies: Cough, Shortness of breath at rest, Sputum production Gastrointestinal: Denies: Abdominal Pain, Nausea, Vomiting Genitourinary: Reports: Dysuria, Frequency, Hematuria, Urgency Musculoskeletal: Denies: Joint Pain, Joint Tenderness Skin: Denies: Rash, Wounds Neurological: Denies: Numbness, Tingling, Focal weakness Psychiatric: Denies: Anxiety, Depression, Homicidal Ideations, Suicidal Ideations Hematologic/ Lymphatic: Reports: Anemia Patient Problems: Active and Suspected Problems (Last Reviewed 10/12/20 @ 08:[address] Zach Chaves MD) Severe sepsis (Acute) Urinary tract infection with hematuria (Acute) Anemia due to blood loss (Acute) Severe sepsis (Acute) Gross hematuria (Acute) Objective: The patient's most recent lab work, culture data and imaging studies have all been personally reviewed. Surface echocardiogram from August 2019 revealed normal LV size with an ejection fraction of 55 to 60%. Pulmonary artery systolic pressure was estimated to be 54 mmHg. Blood and urine cultures are currently pending. - Physical Exam Vitals/I&O's: Vital Signs Temp Pulse Resp BP Pulse Ox 97.0 F L 118 H 19 H 114/70 93 10/12/20 02:05 10/12/20 04:00 10/12/20 02:05 10/12/20 02:05 10/12/20 02:05 Oxygen Delivery Method Room Air Weight: 169 lb 3.2 oz Body Mass Index (BMI) 27.3 Finger Stick Blood Glucose 143 Intake and Output for Last 24 Hours 10/10/20 10/11/20 10/12/20 23:59 23:59 23:59 Intake Total 50 / 250 200 / 200 Output Total 425 / 425 Balance 50 / -50 -225 / -225 General: Alert, Cooperative, - - Uncomfortable in appearance. HEENT: Atraumatic, PERRLA, Normocephalic Oral: No Gingival or Mucosal Lesions/ Ulcerations Neck: Supple, No Nodes, Trachea Midline, - - Dialysis line in place. Lungs: No rhonchi, No wheeze, No rales, Diminished Cardiovascular: Regular rate, Regular Rhythm Abdomen: Bowel Sounds Present, Soft, Non Tender Extremities: No clubbing, No cyanosis, Edema Skin: No breakdown Musculoskeletal: No Muscle Wasting Lymphatic: No Cervical, Supraclavicular, or Inguinal Adenopathy Neurological: Cranial nerves II-XII grossly intact, Neuro grossly intact Psych/Mental Status: Normal Affect, Appropriate Labs (Last 48 Hours) 10/11/20 10/11/20 10/11/20 19:03 19:11 19:11 WBC 17.7 H RBC 2.51 L Hgb 7.1 L Hct 23.1 L MCV 92.0 MCH 28.3 MCHC 30.7 L RDW Std Deviation 61.2 H RDW Coeff of Mika 21.7 H Plt Count 677 H MPV 10.3 Immature Gran % (Auto) 1.200 H Neut % (Auto) 90.0 H Lymph % (Auto) 6.1 L [place] % (Auto) 2.5 Eos % (Auto) 0.1 Baso % (Auto) 0.1 Absolute Neuts (auto) 15.9 H Absolute Lymphs (auto) 1.08 Nucleated RBC % 1.5 Differential Comment SCANNED Diff Path Review May foll Platelet Estimate MOD INC Polychromasia RARE Hypochromasia 1+ Anisocytosis 3+ Macrocytosis Target Cells 2+ Schistocytes RARE PT INR Sodium 134 L Potassium 4.9 Chloride 96 L Carbon Dioxide 32.0 Anion Gap 6 BUN 38 H Creatinine 4.18 H Estim Creat Clear Calc 12.56 Est GFR (MDRD) Af Amer 14 L Est GFR (MDRD) Non-Af 11 L BUN/Creatinine Ratio 9.1 L Glucose 111 H Lactic Acid Calcium 8.4 L Urine Color Mitzi Urine Clarity Turbid Urine pH 7.0 Ur Specific [place] 1.010 Urine Protein 500 H Urine Glucose (UA) Normal Urine Ketones 5 H Urine Occult Blood 250 H Urine Nitrite Negative Urine Bilirubin Negative Urine Urobilinogen Normal Ur Leukocyte Esterase Negative Urine RBC > 100 SEEN Urine WBC 0 SEEN Ur Squamous Epith Cells 0-5 SEEN Amorphous Sediment 1+ PHOS Urine Bacteria 1+ Urine Mucus 0 SEEN Blood Type Antibody Screen 10/11/20 10/12/20 10/12/20 19:11 00:15 00:15 WBC RBC Hgb Hct MCV MCH MCHC RDW Std Deviation RDW Coeff of Mika Plt Count MPV Immature Gran % (Auto) Neut % (Auto) Lymph % (Auto) [place] % (Auto) Eos % (Auto) Baso % (Auto) Absolute Neuts (auto) Absolute Lymphs (auto) Nucleated RBC % Differential Comment Diff Path Review Platelet Estimate Polychromasia Hypochromasia Anisocytosis Macrocytosis Target Cells Schistocytes PT INR Sodium Potassium Chloride Carbon Dioxide Anion Gap BUN Creatinine Estim Creat Clear Calc Est GFR (MDRD) Af Amer Est GFR (MDRD) Non-Af BUN/Creatinine Ratio Glucose Lactic Acid 2.1 H* 2.5 H* Calcium Urine Color Urine Clarity Urine pH Ur Specific [place] Urine Protein Urine Glucose (UA) Urine Ketones Urine Occult Blood Urine Nitrite Urine Bilirubin Urine Urobilinogen Ur Leukocyte Esterase Urine RBC Urine WBC Ur Squamous Epith Cells Amorphous Sediment Urine Bacteria Urine Mucus Blood Type A POSITIVE Antibody Screen NEGATIVE 10/12/20 10/12/20 10/12/20 00:15 04:30 04:30 WBC 19.6 H RBC 2.84 L Hgb 7.8 L 8.0 L Hct 25.4 L 25.8 L MCV 90.8 MCH 28.2 MCHC 31.0 L RDW Std Deviation 60.1 H RDW Coeff of Mika 22.8 H Plt Count 719 H MPV 10.1 Immature Gran % (Auto) 1.900 H Neut % (Auto) 87.6 H Lymph % (Auto) 7.6 L [place] % (Auto) 2.6 Eos % (Auto) 0.2 Baso % (Auto) 0.1 Absolute Neuts (auto) 17.1 H Absolute Lymphs (auto) 1.48 Nucleated RBC % 1.5 Differential Comment Diff Path Review Platelet Estimate Polychromasia RARE Hypochromasia 2+ Anisocytosis Macrocytosis RARE Target Cells Schistocytes PT INR Sodium 134 L Potassium 4.8 Chloride 95 L Carbon Dioxide 32.0 Anion Gap 7 BUN 41 H Creatinine 4.53 H Estim Creat Clear Calc 11.59 Est GFR (MDRD) Af Amer 13 L Est GFR (MDRD) Non-Af 10 L BUN/Creatinine Ratio 9.1 L Glucose 103 Lactic Acid Calcium 9.0 Urine Color Urine Clarity Urine pH Ur Specific [place] Urine Protein Urine Glucose (UA) Urine Ketones Urine Occult Blood Urine Nitrite Urine Bilirubin Urine Urobilinogen Ur Leukocyte Esterase Urine RBC Urine WBC Ur Squamous Epith Cells Amorphous Sediment Urine Bacteria Urine Mucus Blood Type Antibody Screen 10/12/20 10/12/20 04:30 05:30 WBC RBC Hgb Hct MCV MCH MCHC RDW Std Deviation RDW Coeff of Mika Plt Count MPV Immature Gran % (Auto) Neut % (Auto) Lymph % (Auto) [place] % (Auto) Eos % (Auto) Baso % (Auto) Absolute Neuts (auto) Absolute Lymphs (auto) Nucleated RBC % Differential Comment Diff Path Review Platelet Estimate Polychromasia Hypochromasia Anisocytosis Macrocytosis Target Cells Schistocytes PT 33.9 H INR 3.4 Sodium Potassium Chloride Carbon Dioxide Anion Gap BUN Creatinine Estim Creat Clear Calc Est GFR (MDRD) Af Amer Est GFR (MDRD) Non-Af BUN/Creatinine Ratio Glucose Lactic Acid Pending Calcium Urine Color Urine Clarity Urine pH Ur Specific [place] Urine Protein Urine Glucose (UA) Urine Ketones Urine Occult Blood Urine Nitrite Urine Bilirubin Urine Urobilinogen Ur Leukocyte Esterase Urine RBC Urine WBC Ur Squamous Epith Cells Amorphous Sediment Urine Bacteria Urine Mucus Blood Type Antibody Screen Current Medications Acetaminophen (Acetaminophen 500 Mg Tablet) 500 mg PO Q6H PRN PRN PRN Reason: Pain 1-10/Fever Last Admin: 10/12/20 01:03 Dose: 500 mg Documented by: Alprazolam (Alprazolam 0.5 Mg Tablet) 0.5 mg PO TID PRN PRN PRN Reason: ANXIETY Last Admin: 10/12/20 04:16 Dose: 0.5 mg Documented by: Hydromorphone HCl (Hydromorphone 0.5 Mg/0.5 Ml Syringe) 0.5 mg IV Q3H PRN PRN PRN Reason: pain 6-10/10 Last Admin: 10/12/20 04:16 Dose: 0.5 mg Documented by: Ceftriaxone Sodium (Rocephin) 1 gm in 50 mls @ 100 mls/hr IV Q12 RUBIO Sodium Chloride () 250 mls @ 15 mls/hr IV .[id number] PRN PRN Reason: Saline Flush Melatonin (Melatonin 3 Mg Tablet) 3 mg PO QHS PRN PRN PRN Reason: INSOMNIA Ondansetron HCl (Ondansetron 4 Mg/2 Ml Vial) 4 mg IV Q8H PRN PRN PRN Reason: NAUSEA/VOMITING Pantoprazole Sodium (Pantoprazole Sodium 40 Mg Tablet) 40 mg PO BID [facility] Prednisone (Prednisone 5 Mg Tablet) 2.5 mg PO TIDCM [facility] Senna/Docusate Sodium (Senna/Docusate Sodium 1 Tablet) 2 tablet PO BID PRN PRN PRN Reason: Constipation Sevelamer Carbonate (Sevelamer Carbonate 800 Mg Tablet) 2,400 mg PO TIDCM [facility] Sodium Chloride (0.9% Saline Lock 10 Ml Syringe) 10 - 40 ml IV UD PRN PRN Reason: SALINE FLUSH Last Admin: 10/12/20 04:17 Dose: 10 ml Documented by: Sucralfate (Sucralfate 1 Gm Tablet) 1 gm PO 1HR_ACHS RUBIO Vancomycin HCl (Vancomcyin 125 Mg/5 Ml Susp Po.Syringe) 125 mg PO Q6 RUBIO Stop: 10/12/20 18:01 Last Admin: 10/12/20 05:17 Dose: 125 mg Documented by: Assessment/Plan Active and Suspected Problems (Last Reviewed 10/12/20 @ 08:[address] Zach Chaves MD) Severe sepsis (Acute) Urinary tract infection with hematuria (Acute) Anemia due to blood loss (Acute) Severe sepsis (Acute) Gross hematuria (Acute) RECOMMENDATIONS: 1. Continue antimicrobials as ordered. 2. Continuous bladder irrigation per urology recommendations. 3. Check liver function profile. 4. Complete treatment course of p.o. vancomycin. 5. Nephrology consultation to assist with hemodialysis needs. 6. Monitor H&H and transfuse if hemoglobin drops below 7 g/dL. IMPRESSIONS: 1. Severe sepsis with concern for urinary tract source of infection Plan to continue current supportive measures with antimicrobials, pending further infectious work-up. Recommend cautious use of fluids given underlying renal dysfunction and need for hemodialysis. The patient remains hemodynamically stable at this time. 2. Gross hematuria Continuous bladder irrigation will be continued per urology recommendations. 3. Recent C. difficile colitis infection Continue p.o. vancomycin to complete treatment course per outpatient recommendations. 4. End-stage renal disease on hemodialysis Nephrology consultation to assist with hemodialysis needs. 5. Anemia Continue to monitor H&H closely. Plan to transfuse if hemoglobin drops below 7 g/dL. Type and screen has already been sent. 6. History of AA amyloidosis/anxiety/rheumatoid arthritis Complicates care, management, recovery and prognosis. Continue home medications as indicated. This note was generated with [employer] dictation software. It may contain incorrect words, spelling, and punctuation that were not noted in checking the note before signing. Inpatient E&M: 46063 Init Hosp L3
[2020-10-12 06:01] LABS: Lactic Acid 1.4 mmol/L (0.4-1.9)
--- NOTE | 2020-10-12 08:00 | CON.PCM_ITS ---
Problem List (1) Gross hematuria Status: Acute Reason for Consult Date of Consultation: 10/12/20 Reason for Consultation: Gross hematuria History of Present Illness: The patient is a 65 year old female with multiple medical problems who presented to the hospital with gross hematuria. She had a three-way catheter in the urine not fairly clear with irrigation. She is also on dialysis. Past Medical History Past Medical History (Chronic Problems): Chronic Problems (Last Reviewed 10/11/20 @ 23:[address] Marc Snow MD) ESRD (end stage renal disease) on dialysis (Chronic) Hyperkalemia (Chronic) Anemia (Chronic) Chronic renal failure (Chronic) Diarrhea (Chronic) NSTEMI (non-ST elevated myocardial infarction) (Chronic) Dialysis patient (Chronic) Elevated troponin (Chronic) Congestive heart failure (Chronic) Rheumatoid arthritis (Chronic) Amyloidosis (Chronic) CKD (chronic kidney disease) stage 4, GFR 15-29 ml/min (Chronic) Renal anasarca (Chronic) Medical History: Medical History (Last Reviewed 10/12/20 @ 08:[address] Zach Chaves MD) NSTEMI (non-ST elevated myocardial infarction) (Chronic) I21.4 Dialysis patient (Chronic) Z99.2 Acute kidney injury superimposed on CKD (Inactive) N17.9, N18.9 Elevated troponin (Chronic) R79.89 Congestive heart failure (Chronic) I50.9 Rheumatoid arthritis (Chronic) M06.9 Amyloidosis (Chronic) E85.9 CKD (chronic kidney disease) stage 4, GFR 15-29 ml/min (Chronic) N18.4 Renal anasarca (Chronic) N04.9 Hyponatremia (Inactive) E87.1 Allergies No Known Allergies Allergy (Verified 10/11/20 17:10) Home Medications: Ambulatory Orders Medication Instructions Recorded Sevelamer Carbonate 3 tab PO TIDCM 10/29/19 Alprazolam [Xanax] 0.5 mg PO TID PRN PRN 06/23/20 Prednisone 2.5 mg PO TID 06/23/20 Metoprolol(XL)Succ [Toprol Xl 25 mg PO DAILY #0 07/05/20 (Beta Azra)] Acetaminophen [Tylenol] 500 mg PO Q6H PRN PRN 09/23/20 Pantoprazole Sodium [Protonix] 40 mg PO BID #60 tab 09/26/20 Vancomycin [Vancocin] 125 mg PO Q6H #53 cap 09/26/20 Diphenoxylate/Atrop [Lomotil] 1 tab PO BID PRN PRN #6 tab 09/28/20 Indomethacin 25 mg PO TID 10/11/20 Sucralfate [Carafate] 1 gm PO 4X/DAY 10/11/20 Surgical History: appendectomy, tonsillectomy, - - Left forearm AV fistula; tubal ligation Psychiatric History: Anxiety, Depression [employer]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 Paternal History Items: Diabetes, Heart Disease, - Review of Systems Constitutional: Denies: Chills, Fever, Weight Change HEENT: Denies: Head Aches, Sinus Congestion, Sinus Drainage Cardiovascular: Denies: Chest Pain, Palpitations Respiratory: Denies: Cough, Shortness of breath at rest, Sputum production Gastrointestinal: Denies: Abdominal Pain, Nausea, Vomiting Genitourinary: Reports: Hematuria. Denies: Dysuria Musculoskeletal: Denies: Joint Pain, Joint Tenderness Skin: Denies: Rash, Wounds Neurological: Denies: Numbness, Tingling, Focal weakness Psychiatric: Denies: Anxiety, Depression, Homicidal Ideations, Suicidal Ideations Hematologic/ Lymphatic: Denies: Easy Bruising, Easy Bleeding Physical Exam - Physical Exam Vital Signs Temp 97.3 F L 10/12/20 04:00 Pulse 87 10/12/20 06:00 Resp 11 L 10/12/20 06:00 BP 96/57 L 10/12/20 06:00 Pulse Ox 91 10/12/20 06:00 Intake & Output 10/10/20 10/11/20 10/12/20 23:59 23:59 23:59 Intake Total 50 / 250 200 / 200 Output Total 875 / 875 Balance 50 / -50 -675 / -675 Weight: 76.748 kg 76.8 kg Intake: Oral 200 / 200 Intake, IV Amount 50 / 50 Rocephin 1 gm In 50 ml @ 100 50 / 50 mls/hr IV X1 ONE Rx#:[id number] Output: Urine 875 / 875 Other: Intake, Continuous Bladder 3,000 Irrigation Output, Continuous Bladder 3,450 Irrigation General: Alert, Oriented x3 HEENT: Atraumatic Oral: Moist Mucosa Neck: Supple Lungs: Normal air movement Cardiovascular: Regular rate Laboratory Tests Past 24 Hrs 10/11/20 10/11/20 10/11/20 19:03 19:11 19:11 WBC 17.7 H RBC 2.51 L Hgb 7.1 L Hct 23.1 L MCV 92.0 MCH 28.3 MCHC 30.7 L RDW Std Deviation 61.2 H RDW Coeff of Mika 21.7 H Plt Count 677 H MPV 10.3 Immature Gran % (Auto) 1.200 H Neut % (Auto) 90.0 H Lymph % (Auto) 6.1 L [place] % (Auto) 2.5 Eos % (Auto) 0.1 Baso % (Auto) 0.1 Absolute Neuts (auto) 15.9 H Absolute Lymphs (auto) 1.08 Nucleated RBC % 1.5 Differential Comment SCANNED Diff Path Review May foll Platelet Estimate MOD INC Polychromasia RARE Hypochromasia 1+ Anisocytosis 3+ Macrocytosis Target Cells 2+ Schistocytes RARE PT INR Sodium 134 L Potassium 4.9 Chloride 96 L Carbon Dioxide 32.0 Anion Gap 6 BUN 38 H Creatinine 4.18 H Estim Creat Clear Calc 12.56 Est GFR (MDRD) Af Amer 14 L Est GFR (MDRD) Non-Af 11 L BUN/Creatinine Ratio 9.1 L Glucose 111 H Lactic Acid Calcium 8.4 L Urine Color Mitzi Urine Clarity Turbid Urine pH 7.0 Ur Specific [place] 1.010 Urine Protein 500 H Urine Glucose (UA) Normal Urine Ketones 5 H Urine Occult Blood 250 H Urine Nitrite Negative Urine Bilirubin Negative Urine Urobilinogen Normal Ur Leukocyte Esterase Negative Urine RBC > 100 SEEN Urine WBC 0 SEEN Ur Squamous Epith Cells 0-5 SEEN Amorphous Sediment 1+ PHOS Urine Bacteria 1+ Urine Mucus 0 SEEN Blood Type Antibody Screen 10/11/20 10/12/20 10/12/20 19:11 00:15 00:15 WBC RBC Hgb Hct MCV MCH MCHC RDW Std Deviation RDW Coeff of Mika Plt Count MPV Immature Gran % (Auto) Neut % (Auto) Lymph % (Auto) [place] % (Auto) Eos % (Auto) Baso % (Auto) Absolute Neuts (auto) Absolute Lymphs (auto) Nucleated RBC % Differential Comment Diff Path Review Platelet Estimate Polychromasia Hypochromasia Anisocytosis Macrocytosis Target Cells Schistocytes PT INR Sodium Potassium Chloride Carbon Dioxide Anion Gap BUN Creatinine Estim Creat Clear Calc Est GFR (MDRD) Af Amer Est GFR (MDRD) Non-Af BUN/Creatinine Ratio Glucose Lactic Acid 2.1 H* 2.5 H* Calcium Urine Color Urine Clarity Urine pH Ur Specific [place] Urine Protein Urine Glucose (UA) Urine Ketones Urine Occult Blood Urine Nitrite Urine Bilirubin Urine Urobilinogen Ur Leukocyte Esterase Urine RBC Urine WBC Ur Squamous Epith Cells Amorphous Sediment Urine Bacteria Urine Mucus Blood Type A POSITIVE Antibody Screen NEGATIVE 10/12/20 10/12/20 10/12/20 00:15 04:30 04:30 WBC 19.6 H RBC 2.84 L Hgb 7.8 L 8.0 L Hct 25.4 L 25.8 L MCV 90.8 MCH 28.2 MCHC 31.0 L RDW Std Deviation 60.1 H RDW Coeff of Mika 22.8 H Plt Count 719 H MPV 10.1 Immature Gran % (Auto) 1.900 H Neut % (Auto) 87.6 H Lymph % (Auto) 7.6 L [place] % (Auto) 2.6 Eos % (Auto) 0.2 Baso % (Auto) 0.1 Absolute Neuts (auto) 17.1 H Absolute Lymphs (auto) 1.48 Nucleated RBC % 1.5 Differential Comment Diff Path Review Platelet Estimate Polychromasia RARE Hypochromasia 2+ Anisocytosis Macrocytosis RARE Target Cells Schistocytes PT INR Sodium 134 L Potassium 4.8 Chloride 95 L Carbon Dioxide 32.0 Anion Gap 7 BUN 41 H Creatinine 4.53 H Estim Creat Clear Calc 11.59 Est GFR (MDRD) Af Amer 13 L Est GFR (MDRD) Non-Af 10 L BUN/Creatinine Ratio 9.1 L Glucose 103 Lactic Acid Calcium 9.0 Urine Color Urine Clarity Urine pH Ur Specific [place] Urine Protein Urine Glucose (UA) Urine Ketones Urine Occult Blood Urine Nitrite Urine Bilirubin Urine Urobilinogen Ur Leukocyte Esterase Urine RBC Urine WBC Ur Squamous Epith Cells Amorphous Sediment Urine Bacteria Urine Mucus Blood Type Antibody Screen 10/12/20 10/12/20 04:30 05:30 WBC RBC Hgb Hct MCV MCH MCHC RDW Std Deviation RDW Coeff of Mika Plt Count MPV Immature Gran % (Auto) Neut % (Auto) Lymph % (Auto) [place] % (Auto) Eos % (Auto) Baso % (Auto) Absolute Neuts (auto) Absolute Lymphs (auto) Nucleated RBC % Differential Comment Diff Path Review Platelet Estimate Polychromasia Hypochromasia Anisocytosis Macrocytosis Target Cells Schistocytes PT 33.9 H INR 3.4 Sodium Potassium Chloride Carbon Dioxide Anion Gap BUN Creatinine Estim Creat Clear Calc Est GFR (MDRD) Af Amer Est GFR (MDRD) Non-Af BUN/Creatinine Ratio Glucose Lactic Acid 1.4 Calcium Urine Color Urine Clarity Urine pH Ur Specific [place] Urine Protein Urine Glucose (UA) Urine Ketones Urine Occult Blood Urine Nitrite Urine Bilirubin Urine Urobilinogen Ur Leukocyte Esterase Urine RBC Urine WBC Ur Squamous Epith Cells Amorphous Sediment Urine Bacteria Urine Mucus Blood Type Antibody Screen Assessment/Plan All Active Problems (Last Reviewed 10/11/20 @ 23:[address] Marc Snow MD) Severe sepsis (Acute) Urinary tract infection with hematuria (Acute) Anemia due to blood loss (Acute) Severe sepsis (Acute) Gross hematuria (Acute) 65-year-old female presented with gross hematuria, the hematuria is clearing up. Plan to check her bladder later this week in the operating room for cystoscopy bilateral retrogrades tentative plan will be for Monday.
--- NOTE | 2020-10-12 10:03 | PN_ITS ---
Patient Problems: Active and Suspected Problems (Last Reviewed 10/12/20 @ 08:[address] Zach Chaves MD) Severe sepsis (Acute) Urinary tract infection with hematuria (Acute) Anemia due to blood loss (Acute) Severe sepsis (Acute) Gross hematuria (Acute) Subjective: Patient seen and examined. She was admitted with a complaint of hematuria for about 1 week. She was also found to have a UTI. She has been managed for hematuria and urinary tract infection as well is acute on chronic anemia due to UTI. Patient was alert and communicative today. He complained of lower abdominal pain and pressure. She still having gross hematuria with clots. Review of systems otherwise negative. She has remained hemodynamically stable. Creatinine is 4.53 today. Lactic acid is trended down to 1.4 though white cell count is trended up to 19.6. Hemoglobin is 8 today. Vitals/I&O's: Vital Signs Temp Pulse Resp BP Pulse Ox 97.3 F L 82 11 L 96/57 L 91 10/12/20 04:00 10/12/20 07:00 10/12/20 06:00 10/12/20 06:00 10/12/20 06:00 Oxygen Delivery Method Room Air Weight: 169 lb 5.04 oz Body Mass Index (BMI) 27.3 Finger Stick Blood Glucose 143 Intake and Output for Last 24 Hours 10/10/20 10/11/20 10/12/20 23:59 23:59 23:59 Intake Total 50 / 250 200 / 200 Output Total 875 / 875 Balance 50 / -50 -675 / -675 General: Alert, Oriented x3, Cooperative, Lethargic HEENT: Atraumatic, PERRLA, EOMI, Normocephalic Oral: Dry Mucosa Neck: Supple, No JVD, Negative Carotid Bruits Lungs: Clear to auscultation, Normal air movement, No rhonchi, No wheeze, No rales Cardiovascular: Regular rate, Regular Rhythm, Normal S1, Normal S2, No murmurs Abdomen: Bowel Sounds Present, Soft, Non-Distended, - - Mild suprapubic tenderness with no guarding or rebound tenderness. having continuous bladder irrigation with passage of clots Extremities: No clubbing, No cyanosis, No edema, Capillary Refill Less than 3 Seconds Skin: No rashes, No breakdown Musculoskeletal: No Tenderness to Palpation of Joints or Extremities Lymphatic: No Cervical, Supraclavicular, or Inguinal Adenopathy Neurological: Cranial nerves II-XII grossly intact, Neuro grossly intact, Motor Exam 5/5 strength throughout Psych/Mental Status: Flat Affect, Alert and oriented to time, place, person, mood and affect Laboratory Results 10/11/20 19:03: Urine Color Mitzi, Urine Clarity Turbid, Urine pH 7.0, Ur Specific [place] 1.010, Urine Protein 500 H, Urine Glucose (UA) Normal, Urine Ketones 5 H, Urine Occult Blood 250 H, Urine Nitrite Negative, Urine Bilirubin Negative, Urine Urobilinogen Normal, Ur Leukocyte Esterase Negative, Urine RBC > 100 SEEN, Urine WBC 0 SEEN, Ur Squamous Epith Cells 0-5 SEEN, Amorphous Sediment 1+ PHOS, Urine Bacteria 1+, Urine Mucus 0 SEEN 10/11/20 19:11: WBC 17.7 H, RBC 2.51 L, Hgb 7.1 L, Hct 23.1 L, MCV 92.0, MCH 28.3, MCHC 30.7 L, RDW Std Deviation 61.2 H, RDW Coeff of Mika 21.7 H, Plt Count 677 H, MPV 10.3, Immature Gran % (Auto) 1.200 H, Neut % (Auto) 90.0 H, Lymph % (Auto) 6.1 L, [place] % (Auto) 2.5, Eos % (Auto) 0.1, Baso % (Auto) 0.1, Absolute Neuts (auto) 15.9 H, Absolute Lymphs (auto) 1.08, Nucleated RBC % 1.5, Differential Comment SCANNED, Diff Path Review May foll, Platelet Estimate MOD INC, Polychromasia RARE, Hypochromasia 1+, Anisocytosis 3+, Target Cells 2+, Schistocytes RARE 10/11/20 19:11: Sodium 134 L, Potassium 4.9, Chloride 96 L, Carbon Dioxide 32.0, Anion Gap 6, BUN 38 H, Creatinine 4.18 H, Estim Creat Clear Calc 12.56, Est GFR (MDRD) Af Amer 14 L, Est GFR (MDRD) Non-Af 11 L, BUN/Creatinine Ratio 9.1 L, Glucose 111 H, Calcium 8.4 L 10/11/20 19:11: Lactic Acid 2.1 H* 10/12/20 00:15: Blood Type A POSITIVE, Antibody Screen NEGATIVE 10/12/20 00:15: Lactic Acid 2.5 H* 10/12/20 00:15: Hgb 7.8 L, Hct 25.4 L 10/12/20 04:30: WBC 19.6 H, RBC 2.84 L, Hgb 8.0 L, Hct 25.8 L, MCV 90.8, MCH 28.2, MCHC 31.0 L, RDW Std Deviation 60.1 H, RDW Coeff of Mika 22.8 H, Plt Count 719 H, MPV 10.1, Immature Gran % (Auto) 1.900 H, Neut % (Auto) 87.6 H, Lymph % (Auto) 7.6 L, [place] % (Auto) 2.6, Eos % (Auto) 0.2, Baso % (Auto) 0.1, Absolute Neuts (auto) 17.1 H, Absolute Lymphs (auto) 1.48, Nucleated RBC % 1.5, Polychromasia RARE, Hypochromasia 2+, Macrocytosis RARE 10/12/20 04:30: Sodium 134 L, Potassium 4.8, Chloride 95 L, Carbon Dioxide 32.0, Anion Gap 7, BUN 41 H, Creatinine 4.53 H, Estim Creat Clear Calc 11.59, Est GFR (MDRD) Af Amer 13 L, Est GFR (MDRD) Non-Af 10 L, BUN/Creatinine Ratio 9.1 L, Glucose 103, Calcium 9.0 10/12/20 04:30: PT 33.9 H, INR 3.4 10/12/20 04:30: Total Bilirubin Pending, Direct Bilirubin Pending, AST Pending, ALT Pending, Alkaline Phosphatase Pending, Total Protein Pending, Albumin Pending 10/12/20 05:30: Lactic Acid 1.4 Current Medications Acetaminophen (Acetaminophen 500 Mg Tablet) 500 mg PO Q6H PRN PRN PRN Reason: Pain 1-10/Fever Last Admin: 10/12/20 01:03 Dose: 500 mg Documented by: Alprazolam (Alprazolam 0.5 Mg Tablet) 0.5 mg PO TID PRN PRN PRN Reason: ANXIETY Last Admin: 10/12/20 04:16 Dose: 0.5 mg Documented by: Hydromorphone HCl (Hydromorphone 0.5 Mg/0.5 Ml Syringe) 0.5 mg IV Q3H PRN PRN PRN Reason: pain [id number] Last Admin: 10/12/20 04:16 Dose: 0.5 mg Documented by: Ceftriaxone Sodium (Rocephin) 1 gm in 50 mls @ 100 mls/hr IV Q12 RUBIO Sodium Chloride () 250 mls @ 15 mls/hr IV .[id number] PRN PRN Reason: Saline Flush Melatonin (Melatonin 3 Mg Tablet) 3 mg PO QHS PRN PRN PRN Reason: INSOMNIA Ondansetron HCl (Ondansetron 4 Mg/2 Ml Vial) 4 mg IV Q8H PRN PRN PRN Reason: NAUSEA/VOMITING Pantoprazole Sodium (Pantoprazole Sodium 40 Mg Tablet) 40 mg PO BID RUBIO Prednisone (Prednisone 5 Mg Tablet) 2.5 mg PO TIDCM RUBIO Senna/Docusate Sodium (Senna/Docusate Sodium 1 Tablet) 2 tablet PO BID PRN PRN PRN Reason: Constipation Sevelamer Carbonate (Sevelamer Carbonate 800 Mg Tablet) 2,400 mg PO TIDCM RUBIO Sodium Chloride (0.9% Saline Lock 10 Ml Syringe) 10 - 40 ml IV UD PRN PRN Reason: SALINE FLUSH Last Admin: 10/12/20 04:17 Dose: 10 ml Documented by: Sucralfate (Sucralfate 1 Gm Tablet) 1 gm PO 1HR_ACHS RUBIO Vancomycin HCl (Vancomcyin 125 Mg/5 Ml Susp Po.Syringe) 125 mg PO Q6 RUBIO Stop: 10/12/20 18:01 Last Admin: 10/12/20 05:17 Dose: 125 mg Documented by: STROKE Vital Signs/Narrative: Vital Signs Pulse 10/12/20 07:00 82 Medical Necessity - Tobacco Use Smoking Status: Never smoker Assessment/Plan All Active Problems (Last Reviewed 10/12/20 @ 08:[address] Zach Chaves MD) Severe sepsis (Acute) Urinary tract infection with hematuria (Acute) Anemia due to blood loss (Acute) Severe sepsis (Acute) Gross hematuria (Acute) #Sepsis due to UTI * SIRS criteria now / (wbc of 19.6) * on IV ceftriaxone for UTI * blood and urine cultures pending * lactic acidosis has normalised * #Gross hematuria * still having gross hematuria with clots * urology on board. * Hb is 8. * #Acute on chronic anemia due to gross hematuria * Hb was 7.1 on admission; now 8 * baseline Hb us ~ 8-9 * transfuse if Hb <7 * #.Thrombocytosis * Platelets are 719 today. Was 6.7 on admission. She does have a history of recurrent thrombocytosis * will trend and monitor * #ESRD; on HD. Nephrology on board #Hypertension: metoprolol on hold. BP has been stable. Will monitor #C Diff: * not having diarrhea now. * Says she was diagnosed with it on outpatient basis, but cannot say exactly when. * said she had 4 more days of oral vancomycin at time of admission. * complete course of C DIff * # ?Hematochezia and melena * it is not clear whether patient confused gross hematuria with bleeding per rectum. * no hematochezia or melena noticed since admission. * #HFpEF; EF of 55-60% from previous echo in august 2019. Stable #Peptic ulcer disease: on protonix and sucralfate #DVT prophylaxis: SCDs Code status: full code Inpatient E&M: 57034 Subs Hosp L3
[2020-10-12 10:22] LABS: AST(SGOT) 33 U/L (15-37); Alanine Aminotransfer ALT/SGPT 26 U/L (13-56); Albumin, Serum 1.6 g/dL (3.2-5.0); Alkaline Phosphatase 1527 U/L (45-117); Bilirubin, Direct 1.29 mg/dL (0.00-0.30); Globulin 4.3 g/dL (2.2-4.2); Protein, Total 5.9 g/dL (6.4-8.2)
[2020-10-12] MEDS: predniSONE 5 MG Tablet 2.5 MG PO ×3 (10:23→17:21)
[2020-10-12] MEDS: Pantoprazole Sodium 40 MG Tablet PO ×2 (10:38→21:19)
[2020-10-12] MEDS: Ceftriaxone 1 GM/50 ML BAG IV ×2 (10:38→21:18)
--- NOTE | 2020-10-12 11:02 | CON.PCM_ITS ---
Consultation - Renal PCP/ Referring MD: Requesting physician: [] Primary care physician: Dr. Jabier Arboleda, DO - History of Present Illness History of Present Illness: The patient is a 65 year old F PMH of ESRD on MWF HD schedule , anemia. Patient presented with hematuria for 3 days. Patient was found to have UTI with high lactic acid and was admitted to ICU Patient currently has stratton cath. seen by urology service. she is getting CBI Renal team is consulted for ESRD care. last HD session Monday ROS: 12 systems review is negative except hematuria [] - Allergies Allergies: Allergies No Known Allergies Allergy (Verified 10/11/20 17:10) - Current Medications Current Medications: Current Medications Acetaminophen (Acetaminophen 500 Mg Tablet) 500 mg PO Q6H PRN PRN PRN Reason: Pain 1-10/Fever Last Admin: 10/12/20 10:19 Dose: 500 mg Documented by: Alprazolam (Alprazolam 0.5 Mg Tablet) 0.5 mg PO TID PRN PRN PRN Reason: ANXIETY Last Admin: 10/12/20 04:16 Dose: 0.5 mg Documented by: Hydromorphone HCl (Hydromorphone 0.5 Mg/0.5 Ml Syringe) 0.5 mg IV Q3H PRN PRN PRN Reason: pain 6-10/10 Last Admin: 10/12/20 04:16 Dose: 0.5 mg Documented by: Ceftriaxone Sodium (Rocephin) 1 gm in 50 mls @ 100 mls/hr IV Q12 RUBIO Last Admin: 10/12/20 10:38 Dose: 100 mls/hr Documented by: Sodium Chloride () 250 mls @ 15 mls/hr IV .[id number] PRN PRN Reason: Saline Flush Melatonin (Melatonin 3 Mg Tablet) 3 mg PO QHS PRN PRN PRN Reason: INSOMNIA Ondansetron HCl (Ondansetron 4 Mg/2 Ml Vial) 4 mg IV Q8H PRN PRN PRN Reason: NAUSEA/VOMITING Pantoprazole Sodium (Pantoprazole Sodium 40 Mg Tablet) 40 mg PO BID [facility] Last Admin: 10/12/20 10:38 Dose: 40 mg Documented by: Prednisone (Prednisone 5 Mg Tablet) 2.5 mg PO TIDCM [facility] Last Admin: 10/12/20 10:23 Dose: 2.5 mg Documented by: Senna/Docusate Sodium (Senna/Docusate Sodium 1 Tablet) 2 tablet PO BID PRN PRN PRN Reason: Constipation Sevelamer Carbonate (Sevelamer Carbonate 800 Mg Tablet) 2,400 mg PO TIDCM [facility] Last Admin: 10/12/20 10:24 Dose: Not Given Documented by: Sodium Chloride (0.9% Saline Lock 10 Ml Syringe) 10 - 40 ml IV UD PRN PRN Reason: SALINE FLUSH Last Admin: 10/12/20 04:17 Dose: 10 ml Documented by: Sucralfate (Sucralfate 1 Gm Tablet) 1 gm PO 1HR_ACHS [facility] Last Admin: 10/12/20 10:21 Dose: Not Given Documented by: Vancomycin HCl (Vancomcyin 125 Mg/5 Ml Susp Po.Syringe) 125 mg PO Q6 [facility] Stop: 10/12/20 18:01 Last Admin: 10/12/20 05:17 Dose: 125 mg Documented by: - Past Medical History Past Medical History (Chronic Problems): Chronic Problems (Last Reviewed 10/12/20 @ 08:[address] Zach Chaves MD) ESRD (end stage renal disease) on dialysis (Chronic) Hyperkalemia (Chronic) Anemia (Chronic) Chronic renal failure (Chronic) Diarrhea (Chronic) NSTEMI (non-ST elevated myocardial infarction) (Chronic) Dialysis patient (Chronic) Elevated troponin (Chronic) Congestive heart failure (Chronic) Rheumatoid arthritis (Chronic) Amyloidosis (Chronic) CKD (chronic kidney disease) stage 4, GFR 15-29 ml/min (Chronic) Renal anasarca (Chronic) - Past Surgical History Surgical History: appendectomy, tonsillectomy, - - Left forearm AV fistula; tubal ligation - Social History Smoking Status: Never smoker Alcohol: None Drugs: None - Family History Maternal History Items: - - Denies known maternal medical history including cardiac history. Paternal History Items: Diabetes, Heart Disease, - Patient Problems: Active and Suspected Problems (Last Reviewed 10/12/20 @ 08:[address] Zach Chaves MD) Severe sepsis (Acute) Urinary tract infection with hematuria (Acute) Anemia due to blood loss (Acute) Severe sepsis (Acute) Gross hematuria (Acute) - Physical Exam Vitals/I&O's: Vital Signs Temp Pulse Resp BP Pulse Ox 98.6 F 87 12 103/63 93 10/12/20 08:00 10/12/20 10:00 10/12/20 10:00 10/12/20 10:00 10/12/20 10:00 Oxygen Delivery Method Room Air Weight: 76.8 kg Body Mass Index (BMI) 27.3 Finger Stick Blood Glucose 143 Intake and Output for Last 24 Hours 10/10/20 10/11/20 10/12/20 23:59 23:59 23:59 Intake Total 50 / 250 200 / 200 Output Total 1050 / 1050 Balance 50 / -50 -850 / -850 General: Alert, Oriented x3 HEENT: Atraumatic Oral: Moist Mucosa Neck: Supple Lungs: Clear to auscultation, Normal air movement, No rhonchi, No wheeze Cardiovascular: Regular rate, Regular Rhythm, Normal S1, Normal S2 Abdomen: Bowel Sounds Present, Soft, Non Tender Extremities: Edema Skin: No rashes Musculoskeletal: No Tenderness to Palpation of Joints or Extremities Neurological: Cranial nerves II-XII grossly intact, Neuro grossly intact Laboratory Results 10/11/20 19:03: Urine Color Mitzi, Urine Clarity Turbid, Urine pH 7.0, Ur Specific [place] 1.010, Urine Protein 500 H, Urine Glucose (UA) Normal, Urine Ketones 5 H, Urine Occult Blood 250 H, Urine Nitrite Negative, Urine Bilirubin Negative, Urine Urobilinogen Normal, Ur Leukocyte Esterase Negative, Urine RBC > 100 SEEN, Urine WBC 0 SEEN, Ur Squamous Epith Cells 0-5 SEEN, Amorphous Sediment 1+ PHOS, Urine Bacteria 1+, Urine Mucus 0 SEEN 10/11/20 19:11: WBC 17.7 H, RBC 2.51 L, Hgb 7.1 L, Hct 23.1 L, MCV 92.0, MCH 2 8.3, MCHC 30.7 L, RDW Std Deviation 61.2 H, RDW Coeff of Mika 21.7 H, Plt Count 677 H, MPV 10.3, Immature Gran % (Auto) 1.200 H, Neut % (Auto) 90.0 H, Lymph % (Auto) 6.1 L, [place] % (Auto) 2.5, Eos % (Auto) 0.1, Baso % (Auto) 0.1, Absolute Neuts (auto) 15.9 H, Absolute Lymphs (auto) 1.08, Nucleated RBC % 1.5, Differential Comment SCANNED, Diff Path Review May foll, Platelet Estimate MOD INC, Polychromasia RARE, Hypochromasia 1+, Anisocytosis 3+, Target Cells 2+, Schistocytes RARE 10/11/20 19:11: Sodium 134 L, Potassium 4.9, Chloride 96 L, Carbon Dioxide 32.0, Anion Gap 6, BUN 38 H, Creatinine 4.18 H, Estim Creat Clear Calc 12.56, Est GFR (MDRD) Af Amer 14 L, Est GFR (MDRD) Non-Af 11 L, BUN/Creatinine Ratio 9.1 L, Glucose 111 H, Calcium 8.4 L 10/11/20 19:11: Lactic Acid 2.1 H* 10/12/20 00:15: Blood Type A POSITIVE, Antibody Screen NEGATIVE 10/12/20 00:15: Lactic Acid 2.5 H* 10/12/20 00:15: Hgb 7.8 L, Hct 25.4 L 10/12/20 04:30: WBC 19.6 H, RBC 2.84 L, Hgb 8.0 L, Hct 25.8 L, MCV 90.8, MCH 28.2, MCHC 31.0 L, RDW Std Deviation 60.1 H, RDW Coeff of Mika 22.8 H, Plt Count 719 H, MPV 10.1, Immature Gran % (Auto) 1.900 H, Neut % (Auto) 87.6 H, Lymph % (Auto) 7.6 L, [place] % (Auto) 2.6, Eos % (Auto) 0.2, Baso % (Auto) 0.1, Absolute Neuts (auto) 17.1 H, Absolute Lymphs (auto) 1.48, Nucleated RBC % 1.5, Polychromasia RARE, Hypochromasia 2+, Macrocytosis RARE 10/12/20 04:30: Sodium 134 L, Potassium 4.8, Chloride 95 L, Carbon Dioxide 32.0, Anion Gap 7, BUN 41 H, Creatinine 4.53 H, Estim Creat Clear Calc 11.59, Est GFR (MDRD) Af Amer 13 L, Est GFR (MDRD) Non-Af 10 L, BUN/Creatinine Ratio 9.1 L, Glucose 103, Calcium 9.0 10/12/20 04:30: PT 33.9 H, INR 3.4 10/12/20 04:30: Total Bilirubin 1.70 H, Direct Bilirubin 1.29 H, AST 33, ALT 26, Alkaline Phosphatase 1527 H, Total Protein 5.9 L, Albumin 1.6 L, Globulin 4.3 H 10/12/20 05:30: Lactic Acid 1.4 Current Medications Acetaminophen (Acetaminophen 500 Mg Tablet) 500 mg PO Q6H PRN PRN PRN Reason: Pain 1-10/Fever Last Admin: 10/12/20 10:19 Dose: 500 mg Documented by: Alprazolam (Alprazolam 0.5 Mg Tablet) 0.5 mg PO TID PRN PRN PRN Reason: ANXIETY Last Admin: 10/12/20 04:16 Dose: 0.5 mg Documented by: Hydromorphone HCl (Hydromorphone 0.5 Mg/0.5 Ml Syringe) 0.5 mg IV Q3H PRN PRN PRN Reason: pain 6-10/10 Last Admin: 10/12/20 04:16 Dose: 0.5 mg Documented by: Ceftriaxone Sodium (Rocephin) 1 gm in 50 mls @ 100 mls/hr IV Q12 RUBIO Last Admin: 10/12/20 10:38 Dose: 100 mls/hr Documented by: Sodium Chloride () 250 mls @ 15 mls/hr IV .[id number] PRN PRN Reason: Saline Flush Melatonin (Melatonin 3 Mg Tablet) 3 mg PO QHS PRN PRN PRN Reason: INSOMNIA Ondansetron HCl (Ondansetron 4 Mg/2 Ml Vial) 4 mg IV Q8H PRN PRN PRN Reason: NAUSEA/VOMITING Pantoprazole Sodium (Pantoprazole Sodium 40 Mg Tablet) 40 mg PO BID [facility] Last Admin: 10/12/20 10:38 Dose: 40 mg Documented by: Prednisone (Prednisone 5 Mg Tablet) 2.5 mg PO TIDCM [facility] Last Admin: 10/12/20 10:23 Dose: 2.5 mg Documented by: Senna/Docusate Sodium (Senna/Docusate Sodium 1 Tablet) 2 tablet PO BID PRN PRN PRN Reason: Constipation Sevelamer Carbonate (Sevelamer Carbonate 800 Mg Tablet) 2,400 mg PO TIDCM [facility] Last Admin: 10/12/20 10:24 Dose: Not Given Documented by: Sodium Chloride (0.9% Saline Lock 10 Ml Syringe) 10 - 40 ml IV UD PRN PRN Reason: SALINE FLUSH Last Admin: 10/12/20 04:17 Dose: 10 ml Documented by: Sucralfate (Sucralfate 1 Gm Tablet) 1 gm PO 1HR_ACHS [facility] Last Admin: 10/12/20 10:21 Dose: Not Given Documented by: Vancomycin HCl (Vancomcyin 125 Mg/5 Ml Susp Po.Syringe) 125 mg PO Q6 [facility] Stop: 10/12/20 18:01 Last Admin: 10/12/20 05:17 Dose: 125 mg Documented by: Assessment/Plan All Active Problems (Last Reviewed 10/12/20 @ 08:[address] Zach Chaves MD) Severe sepsis (Acute) Urinary tract infection with hematuria (Acute) Anemia due to blood loss (Acute) Severe sepsis (Acute) Gross hematuria (Acute) 1- ESRD. On MWF HD schedule HD session today 2- Anemia: from ESRD and hematuria Will continue TAMMY with HD session RBC transfusion as per the primary service 3- Hematuria: Urology is following for CBI. Cystoscopy Monday Renal team will continue to follow Please call if any question or concern at [phone] Gabriela Franks MD
--- NOTE | 2020-10-12 11:18 | CASEMGMT ---
[facility] CM Readmission Note: Index admission: 09/22/20-09/26/20 Diagnosis: UGIB, anemia, positive covid-19 Disposition: Home on discharge. Lives with daughter and her . 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 Current Admission Diagnosis: blood loss anemia, hematuria, po Pt is hemodialysis patient, presented with gross hematuria and was being treated for C-diff. Dr. Chaves consult, H/H 7.09/12.1, 2 units PRBC. To ICU for treatment. Pt lives @ home with her and daughter. PT/OT ordered, may need to consider SNF on discharge. Palliative Care Referral: yes. order placed and [facility] palliative update. Laury RUVALCABA RN AC
[2020-10-12] MEDS: Sucralfate 1 GM Tablet PO ×3 (12:38→21:19)
[2020-10-12] MEDS: SEVELAMER CARBONATE 800 MG TABLET 2400 MG PO ×2 (12:39→17:22)
[2020-10-12 12:44] LABS: Hematocrit 22.4 % (37-47); Hemoglobin 7.1 g/dL (12.0-15.0)
[2020-10-12 13:34] LABS: Pathologist Review Reviewed
[2020-10-12 14:01] LABS: GGTP 1143 U/L (5-55)
[2020-10-12 17:40] LABS: Hematocrit 23.1 % (37-47); Hemoglobin 7.1 g/dL (12.0-15.0)
--- NOTE | 2020-10-12 21:11 | DIALYSIS ---
pt ran 3.0 of 3.45 treatment, pt was hypotensive despite giving NS boluses total removed 800ml, pt having episodes of A fib,
[2020-10-12] MEDS: MELATONIN 3 MG TABLET PO (21:19)
[2020-10-13] VITALS (34 sets, daily range): BP systolic 81–143; BP diastolic 41–85; PULSE 81–140; RESP 12–22; TEMP 36.3–37.3; O2SAT 94–98
[2020-10-13 00:04] LABS: Hematocrit 19.9 % (37-47); Hemoglobin 6.1 g/dL (12.0-15.0)
[2020-10-13] MEDS: Acetaminophen 500 MG Tablet PO ×2 (04:47→11:23)
[2020-10-13 06:10] LABS: Hematocrit 26.3 % (37-47); Hemoglobin 8.4 g/dL (12.0-15.0)
--- NOTE | 2020-10-13 06:28 | PN_ITS ---
Subjective: The patient was seen and examined at the bedside this morning. Events from the last 24 hours have been reviewed. Yesterday, the patient did not tolerate her entire dialysis treatment due to the development of hypotension. In addition, the patient went into atrial fibrillation as well. The patient's hemoglobin did drop overnight to 6.1 g/dL, for which she received 2 units of packed red blood cells. Her hemoglobin has improved this morning to 8.4 g/dL. The patient remains on continuous bladder irrigation. Blood pressures are a bit tenuous this morning. Objective: The patient's most recent lab work, culture data and imaging studies have all been personally reviewed. Surface echocardiogram from August 2019 revealed normal LV size with an ejection fraction of 55 to 60%. Pulmonary artery systolic pressure was estimated to be 54 mmHg. Preliminary urine culture was positive for Enterococcus species/presumptive E. coli. Blood cultures are pending. General: Alert, Cooperative, No apparent distress HEENT: Atraumatic, PERRLA, Normocephalic Oral: Moist Mucosa, No Gingival or Mucosal Lesions/ Ulcerations Neck: Supple, No Nodes, Trachea Midline Lungs: Normal air movement, No rhonchi, No wheeze, No rales Cardiovascular: Normal S1, Normal S2, Irregular Rate Abdomen: Bowel Sounds Present, Soft, Non Tender Extremities: No clubbing, No cyanosis, Edema Skin: - - No significant change from previous Musculoskeletal: No Tenderness to Palpation of Joints or Extremities, No Muscle Wasting Lymphatic: No Cervical, Supraclavicular, or Inguinal Adenopathy Neurological: Cranial nerves II-XII grossly intact, Neuro grossly intact Psych/Mental Status: Alert and oriented to time, place, person, mood and affect Vital Signs Temp Pulse Resp BP Pulse Ox 97.3 F L 91 15 98/66 94 10/13/20 04:30 10/13/20 04:30 10/13/20 04:30 10/13/20 04:30 10/13/20 04:30 Oxygen Delivery Method Room Air Weight: 176 lb 1.6 oz Body Mass Index (BMI) 27.3 Finger Stick Blood Glucose 143 Intake and Output for Last 24 Hours 10/11/20 10/12/20 10/13/20 23:59 23:59 23:59 Intake Total 50 / 250 990 / 1090 900 / 900 Output Total 875 / 875 0 / 0 Balance 50 / -50 115 / 215 900 / 900 Labs (Last 48 Hours) 10/11/20 10/11/20 10/11/20 19:03 19:11 19:11 WBC 17.7 H RBC 2.51 L Hgb 7.1 L Hct 23.1 L MCV 92.0 MCH 28.3 MCHC 30.7 L RDW Std Deviation 61.2 H RDW Coeff of Mika 21.7 H Plt Count 677 H MPV 10.3 Immature Gran % (Auto) 1.200 H Neut % (Auto) 90.0 H Lymph % (Auto) 6.1 L [place] % (Auto) 2.5 Eos % (Auto) 0.1 Baso % (Auto) 0.1 Absolute Neuts (auto) 15.9 H Absolute Lymphs (auto) 1.08 Nucleated RBC % 1.5 Differential Comment SCANNED Diff Path Review Reviewed Platelet Estimate MOD INC Polychromasia RARE Hypochromasia 1+ Anisocytosis 3+ Macrocytosis Target Cells 2+ Schistocytes RARE PT INR Sodium 134 L Potassium 4.9 Chloride 96 L Carbon Dioxide 32.0 Anion Gap 6 BUN 38 H Creatinine 4.18 H Estim Creat Clear Calc 12.56 Est GFR (MDRD) Af Amer 14 L Est GFR (MDRD) Non-Af 11 L BUN/Creatinine Ratio 9.1 L Glucose 111 H Lactic Acid Calcium 8.4 L Total Bilirubin Direct Bilirubin GGT AST ALT Alkaline Phosphatase Total Protein Albumin Globulin Urine Color Mitzi Urine Clarity Turbid Urine pH 7.0 Ur Specific [place] 1.010 Urine Protein 500 H Urine Glucose (UA) Normal Urine Ketones 5 H Urine Occult Blood 250 H Urine Nitrite Negative Urine Bilirubin Negative Urine Urobilinogen Normal Ur Leukocyte Esterase Negative Urine RBC > 100 SEEN Urine WBC 0 SEEN Ur Squamous Epith Cells 0-5 SEEN Amorphous Sediment 1+ PHOS Urine Bacteria 1+ Urine Mucus 0 SEEN Blood Type Antibody Screen Crossmatch 10/11/20 10/12/20 10/12/20 19:11 00:15 00:15 WBC RBC Hgb Hct MCV MCH MCHC RDW Std Deviation RDW Coeff of Mika Plt Count MPV Immature Gran % (Auto) Neut % (Auto) Lymph % (Auto) [place] % (Auto) Eos % (Auto) Baso % (Auto) Absolute Neuts (auto) Absolute Lymphs (auto) Nucleated RBC % Differential Comment Diff Path Review Platelet Estimate Polychromasia Hypochromasia Anisocytosis Macrocytosis Target Cells Schistocytes PT INR Sodium Potassium Chloride Carbon Dioxide Anion Gap BUN Creatinine Estim Creat Clear Calc Est GFR (MDRD) Af Amer Est GFR (MDRD) Non-Af BUN/Creatinine Ratio Glucose Lactic Acid 2.1 H* 2.5 H* Calcium Total Bilirubin Direct Bilirubin GGT AST ALT Alkaline Phosphatase Total Protein Albumin Globulin Urine Color Urine Clarity Urine pH Ur Specific [place] Urine Protein Urine Glucose (UA) Urine Ketones Urine Occult Blood Urine Nitrite Urine Bilirubin Urine Urobilinogen Ur Leukocyte Esterase Urine RBC Urine WBC Ur Squamous Epith Cells Amorphous Sediment Urine Bacteria Urine Mucus Blood Type A POSITIVE Antibody Screen NEGATIVE Crossmatch 10/12/20 10/12/20 10/12/20 00:15 00:15 04:30 WBC 19.6 H RBC 2.84 L Hgb 7.8 L 8.0 L Hct 25.4 L 25.8 L MCV 90.8 MCH 28.2 MCHC 31.0 L RDW Std Deviation 60.1 H RDW Coeff of Mika 22.8 H Plt Count 719 H MPV 10.1 Immature Gran % (Auto) 1.900 H Neut % (Auto) 87.6 H Lymph % (Auto) 7.6 L [place] % (Auto) 2.6 Eos % (Auto) 0.2 Baso % (Auto) 0.1 Absolute Neuts (auto) 17.1 H Absolute Lymphs (auto) 1.48 Nucleated RBC % 1.5 Differential Comment Diff Path Review Platelet Estimate Polychromasia RARE Hypochromasia 2+ Anisocytosis Macrocytosis RARE Target Cells Schistocytes PT INR Sodium Potassium Chloride Carbon Dioxide Anion Gap BUN Creatinine Estim Creat Clear Calc Est GFR (MDRD) Af Amer Est GFR (MDRD) Non-Af BUN/Creatinine Ratio Glucose Lactic Acid Calcium Total Bilirubin Direct Bilirubin GGT AST ALT Alkaline Phosphatase Total Protein Albumin Globulin Urine Color Urine Clarity Urine pH Ur Specific [place] Urine Protein Urine Glucose (UA) Urine Ketones Urine Occult Blood Urine Nitrite Urine Bilirubin Urine Urobilinogen Ur Leukocyte Esterase Urine RBC Urine WBC Ur Squamous Epith Cells Amorphous Sediment Urine Bacteria Urine Mucus Blood Type Antibody Screen Crossmatch See Detail 10/12/20 10/12/20 10/12/20 04:30 04:30 04:30 WBC RBC Hgb Hct MCV MCH MCHC RDW Std Deviation RDW Coeff of Mika Plt Count MPV Immature Gran % (Auto) Neut % (Auto) Lymph % (Auto) [place] % (Auto) Eos % (Auto) Baso % (Auto) Absolute Neuts (auto) Absolute Lymphs (auto) Nucleated RBC % Differential Comment Diff Path Review Platelet Estimate Polychromasia Hypochromasia Anisocytosis Macrocytosis Target Cells Schistocytes PT 33.9 H INR 3.4 Sodium 134 L Potassium 4.8 Chloride 95 L Carbon Dioxide 32.0 Anion Gap 7 BUN 41 H Creatinine 4.53 H Estim Creat Clear Calc 11.59 Est GFR (MDRD) Af Amer 13 L Est GFR (MDRD) Non-Af 10 L BUN/Creatinine Ratio 9.1 L Glucose 103 Lactic Acid Calcium 9.0 Total Bilirubin 1.70 H Direct Bilirubin 1.29 H GGT AST 33 ALT 26 Alkaline Phosphatase 1527 H Total Protein 5.9 L Albumin 1.6 L Globulin 4.3 H Urine Color Urine Clarity Urine pH Ur Specific [place] Urine Protein Urine Glucose (UA) Urine Ketones Urine Occult Blood Urine Nitrite Urine Bilirubin Urine Urobilinogen Ur Leukocyte Esterase Urine RBC Urine WBC Ur Squamous Epith Cells Amorphous Sediment Urine Bacteria Urine Mucus Blood Type Antibody Screen Crossmatch 10/12/20 10/12/20 10/12/20 04:30 05:30 12:00 WBC RBC Hgb 7.1 L Hct 22.4 L MCV MCH MCHC RDW Std Deviation RDW Coeff of Mika Plt Count MPV Immature Gran % (Auto) Neut % (Auto) Lymph % (Auto) [place] % (Auto) Eos % (Auto) Baso % (Auto) Absolute Neuts (auto) Absolute Lymphs (auto) Nucleated RBC % Differential Comment Diff Path Review Platelet Estimate Polychromasia Hypochromasia Anisocytosis Macrocytosis Target Cells Schistocytes PT INR Sodium Potassium Chloride Carbon Dioxide Anion Gap BUN Creatinine Estim Creat Clear Calc Est GFR (MDRD) Af Amer Est GFR (MDRD) Non-Af BUN/Creatinine Ratio Glucose Lactic Acid 1.4 Calcium Total Bilirubin Direct Bilirubin GGT 1143 H AST ALT Alkaline Phosphatase Total Protein Albumin Globulin Urine Color Urine Clarity Urine pH Ur Specific [place] Urine Protein Urine Glucose (UA) Urine Ketones Urine Occult Blood Urine Nitrite Urine Bilirubin Urine Urobilinogen Ur Leukocyte Esterase Urine RBC Urine WBC Ur Squamous Epith Cells Amorphous Sediment Urine Bacteria Urine Mucus Blood Type Antibody Screen Crossmatch 10/12/20 10/12/20 10/13/20 17:30 23:30 06:00 WBC RBC Hgb 7.1 L 6.1 L 8.4 L Hct 23.1 L 19.9 L 26.3 L MCV MCH MCHC RDW Std Deviation RDW Coeff of Mika Plt Count MPV Immature Gran % (Auto) Neut % (Auto) Lymph % (Auto) [place] % (Auto) Eos % (Auto) Baso % (Auto) Absolute Neuts (auto) Absolute Lymphs (auto) Nucleated RBC % Differential Comment Diff Path Review Platelet Estimate Polychromasia Hypochromasia Anisocytosis Macrocytosis Target Cells Schistocytes PT INR Sodium Potassium Chloride Carbon Dioxide Anion Gap BUN Creatinine Estim Creat Clear Calc Est GFR (MDRD) Af Amer Est GFR (MDRD) Non-Af BUN/Creatinine Ratio Glucose Lactic Acid Calcium Total Bilirubin Direct Bilirubin GGT AST ALT Alkaline Phosphatase Total Protein Albumin Globulin Urine Color Urine Clarity Urine pH Ur Specific [place] Urine Protein Urine Glucose (UA) Urine Ketones Urine Occult Blood Urine Nitrite Urine Bilirubin Urine Urobilinogen Ur Leukocyte Esterase Urine RBC Urine WBC Ur Squamous Epith Cells Amorphous Sediment Urine Bacteria Urine Mucus Blood Type Antibody Screen Crossmatch Microbiology 10/11/20 19:03 Urine, Clean Catch Urine Culture - Preliminary GPC Poss Enterococcus sp Presumptive E. coli Medical Necessity - Tobacco Use Smoking Status: Never smoker Assessment/Plan All Active Problems (Last Reviewed 10/12/20 @ 08:[address] Zach Chaves MD) Severe sepsis (Acute) Urinary tract infection with hematuria (Acute) Anemia due to blood loss (Acute) Severe sepsis (Acute) Gross hematuria (Acute) RECOMMENDATIONS: 1. Per urology, okay to discontinue bladder irrigation and remove Rivas. 2. Continue antimicrobials. 3. Continue hemodialysis per nephrology recommendations. 4. Continue to monitor H&H and transfuse if hemoglobin is below 7 g/dL. IMPRESSIONS: 1. Severe sepsis secondary to Enterococcus urinary tract source of infection Plan to continue current supportive measures with antimicrobials. The patient remains hemodynamically stable at this time. 2. Gross hematuria Continuous bladder irrigation can be discontinued from a urologic standpoint. Recommend continuing to monitor patient in ICU after removal of Rivas catheter. 3. Recent C. difficile colitis infection Continue p.o. vancomycin to complete treatment course per outpatient recommendations. 4. End-stage renal disease on hemodialysis Nephrology following to assist with hemodialysis needs. 5. Anemia Continue to monitor H&H closely. Plan to transfuse if hemoglobin drops below 7 g/dL. 6. History of AA amyloidosis/anxiety/rheumatoid arthritis Complicates care, management, recovery and prognosis. Continue home medications as indicated. This note was generated with [employer] dictation software. It may contain incorrect words, spelling, and punctuation that were not noted in checking the note before signing. Inpatient E&M: 30094 Subs Hosp L3
[2020-10-13] MEDS: Sucralfate 1 GM Tablet PO ×4 (06:56→23:14)
--- NOTE | 2020-10-13 07:49 | PCM.CONS.B ---
Problem List (1) Gross hematuria Status: Acute - Consult Date of Consult: 10/13/20 Follow-up to hematuria, 65-year-old female came in coagulopathic with UTI had bleeding from the bladder probably the most common cause for at this point the bleeding is stopped CBI is clear I think we can remove the catheter and stop the CBI. She can follow-up as an outpatient here with urology for outpatient cystoscopy call me with questions.
[2020-10-13 08:01] LABS: ALB/GLOB Ratio 0.4 RATIO (0.9-2.4); AST(SGOT) 23 U/L (15-37); Alanine Aminotransfer ALT/SGPT 19 U/L (13-56); Albumin, Serum 1.3 g/dL (3.2-5.0); Alkaline Phosphatase 1224 U/L (45-117); Anion Gap 7 (5-15); BUN 25 mg/dL (7-18); BUN/Creat Ratio 8.1 RATIO (10-20); Calcium,Total 7.5 mg/dL (8.5-10.1); Chloride 100 mmol/L (98-107); Creatinine, Serum 3.09 mg/dL (0.55-1.02); EST Glomerular Filtration Rate 16 mL/min (>60); Est Glom Filt Rate - Afr Amer 20 mL/min (>60); Estimated Creatinine Clearance 16.99 ml/min; Globulin 3.3 g/dL (2.2-4.2); Glucose 99 mg/dL (74-106); Potassium 4.4 mmol/L (3.5-5.1); Protein, Total 4.6 g/dL (6.4-8.2); Sodium Level 136 mmol/L (136-145)
[2020-10-13] MEDS: Pantoprazole Sodium 40 MG Tablet PO ×2 (09:09→23:15)
[2020-10-13] MEDS: predniSONE 5 MG Tablet 2.5 MG PO ×3 (09:09→17:09)
[2020-10-13] MEDS: SEVELAMER CARBONATE 800 MG TABLET 2400 MG PO ×3 (09:09→17:09)
--- NOTE | 2020-10-13 09:59 | CASEMGMT ---
SW met w/pt in room in regard to discharge plan. SW spoke w/pt about the possibility of going to a fdc for rehab at discharge. Pt has not been to a fdc in the past. Pt lives home w/ and daughter, and she states she can normally walk but needs help getting up. Pt states her and daughter her assist her to get up. 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 SW gave pt list of SNF providers in pt's geographic area that can manage her medical needs, they all work with [facility] as well. List contains quality and resource use data; SW educated pt that this information is on the fdc list. Pt states will want to go home and will just want a list of exercises from therapy to do at home. She states therapy provided this to her on her last admission. SW encouraged pt to ask therapy for this when they come to see her. Pt states understanding. Plan: Pt plans for home at discharge w/family. SW remains available should this change and fdc placement is indicated. JORDIN Navarrete
--- NOTE | 2020-10-13 10:50 | PCM.PN.HOSP ---
Patient Problems: Active and Suspected Problems (Last Reviewed 10/12/20 @ 08:[address] Zach Chaves MD) Severe sepsis (Acute) Urinary tract infection with hematuria (Acute) Anemia due to blood loss (Acute) Severe sepsis (Acute) Gross hematuria (Acute) Subjective: Patient seen and examined. She is much more alert today. She has no other complaints. Review of systems otherwise negative. She has a mild fever today of 99.2F. Cr is down to 3.09 today. Vitals/I&O's: Vital Signs Temp Pulse Resp BP Pulse Ox 99.2 F H 109 H 16 125/74 H 97 10/13/20 08:00 10/13/20 10:00 10/13/20 10:00 10/13/20 10:00 10/13/20 10:00 Oxygen Delivery Method Room Air Weight: 176 lb 1.6 oz Body Mass Index (BMI) 27.3 Finger Stick Blood Glucose 143 Intake and Output for Last 24 Hours 10/11/20 10/12/20 10/13/20 23:59 23:59 23:59 Intake Total 50 / 250 990 / 1090 1260 / 1260 Output Total 875 / 875 0 / 0 Balance 50 / -50 115 / 215 1260 / 1260 General: Alert, Oriented x3, Cooperative HEENT: Atraumatic, PERRLA, EOMI, Normocephalic Oral: Dry Mucosa Neck: Supple, No JVD, Negative Carotid Bruits Lungs: Clear to auscultation, Normal air movement, No rhonchi, No wheeze, No rales Cardiovascular: Regular rate, Regular Rhythm, Normal S1, Normal S2, No murmurs Abdomen: Bowel Sounds Present, Soft, Non-Distended, no tenderness Extremities: No clubbing, No cyanosis, No edema, Capillary Refill Less than 3 Seconds Skin: No rashes, No breakdown Musculoskeletal: No Tenderness to Palpation of Joints or Extremities Lymphatic: No Cervical, Supraclavicular, or Inguinal Adenopathy Neurological: Cranial nerves II-XII grossly intact, Neuro grossly intact, Motor Exam 5/5 strength throughout Psych/Mental Status: Flat Affect, Alert and oriented to time, place, person, mood and affect Microbiology Past 72 Hours 10/11/20 19:03 Urine, Clean Catch Urine Culture - Final Enterococcus faecalis Presumptive E. coli Laboratory Results 10/11/20 19:03: Urine Color Mitzi, Urine Clarity Turbid, Urine pH 7.0, Ur Specific [place] 1.010, Urine Protein 500 H, Urine Glucose (UA) Normal, Urine Ketones 5 H, Urine Occult Blood 250 H, Urine Nitrite Negative, Urine Bilirubin Negative, Urine Urobilinogen Normal, Ur Leukocyte Esterase Negative, Urine RBC > 100 SEEN, Urine WBC 0 SEEN, Ur Squamous Epith Cells 0-5 SEEN, Amorphous Sediment 1+ PHOS, Urine Bacteria 1+, Urine Mucus 0 SEEN 10/11/20 19:11: Diff Path Review Reviewed 10/12/20 00:15: Crossmatch See Detail 10/12/20 04:30: GGT 1143 H 10/12/20 12:00: Hgb 7.1 L, Hct 22.4 L 10/12/20 17:30: Hgb 7.1 L, Hct 23.1 L 10/12/20 23:30: Hgb 6.1 L, Hct 19.9 L 10/13/20 06:00: Hgb 8.4 L, Hct 26.3 L 10/13/20 06:35: Sodium 136, Potassium 4.4, Chloride 100, Carbon Dioxide 29.0, Anion Gap 7, BUN 25 H, Creatinine 3.09 H, Estim Creat Clear Calc 16.99, Est GFR (MDRD) Af Amer 20 L, Est GFR (MDRD) Non-Af 16 L, BUN/Creatinine Ratio 8.1 L, Glucose 99, Calcium 7.5 L, Total Bilirubin 1.20 H, AST 23, ALT 19, Alkaline Phosphatase 1224 H, Total Protein 4.6 L, Albumin 1.3 L, Globulin 3.3, Albumin/Globulin Ratio 0.4 L 10/13/20 10:42: Hgb Pending, Hct Pending 10/13/20 10:42: PT Pending, INR Pending Current Medications Acetaminophen (Acetaminophen 500 Mg Tablet) 500 mg PO Q6H PRN PRN PRN Reason: Pain 1-10/Fever Last Admin: 10/13/20 04:47 Dose: 500 mg Documented by: Alprazolam (Alprazolam 0.5 Mg Tablet) 0.5 mg PO TID PRN PRN PRN Reason: ANXIETY Last Admin: 10/12/20 04:16 Dose: 0.5 mg Documented by: Hydromorphone HCl (Hydromorphone 0.5 Mg/0.5 Ml Syringe) 0.5 mg IV Q3H PRN PRN PRN Reason: pain 6-10/10 Last Admin: 10/12/20 04:16 Dose: 0.5 mg Documented by: Ceftriaxone Sodium (Rocephin) 1 gm in 50 mls @ 100 mls/hr IV Q12 [facility] Last Infusion: 10/12/20 21:53 Dose: Infused Documented by: Sodium Chloride () 250 mls @ 15 mls/hr IV .[id number] PRN PRN Reason: Saline Flush Melatonin (Melatonin 3 Mg Tablet) 3 mg PO QHS PRN PRN PRN Reason: INSOMNIA Last Admin: 10/12/20 21:19 Dose: 3 mg Documented by: Ondansetron HCl (Ondansetron 4 Mg/2 Ml Vial) 4 mg IV Q8H PRN PRN PRN Reason: NAUSEA/VOMITING Pantoprazole Sodium (Pantoprazole Sodium 40 Mg Tablet) 40 mg PO BID [facility] Last Admin: 10/13/20 09:09 Dose: 40 mg Documented by: Prednisone (Prednisone 5 Mg Tablet) 2.5 mg PO TIDCM [facility] Last Admin: 10/13/20 09:09 Dose: 2.5 mg Documented by: Senna/Docusate Sodium (Senna/Docusate Sodium 1 Tablet) 2 tablet PO BID PRN PRN PRN Reason: Constipation Sevelamer Carbonate (Sevelamer Carbonate 800 Mg Tablet) 2,400 mg PO TIDCM [facility] Last Admin: 10/13/20 09:09 Dose: 2,400 mg Documented by: Sodium Chloride (0.9% Saline Lock 10 Ml Syringe) 10 - 40 ml IV UD PRN PRN Reason: SALINE FLUSH Last Admin: 10/12/20 12:42 Dose: 20 ml Documented by: Sucralfate (Sucralfate 1 Gm Tablet) 1 gm PO 1HR_ACHS [facility] Last Admin: 10/13/20 06:56 Dose: 1 gm Documented by: STROKE Vital Signs/Narrative: Vital Signs Temp Pulse Resp BP Pulse Ox 10/13/20 10:00 109 H 16 125/74 H 97 10/13/20 09:00 109 H 19 H 143/85 H 97 10/13/20 08:00 99.2 F H 89 12 90/41 L 94 10/13/20 07:00 85 16 114/71 95 Medical Necessity - Tobacco Use Smoking Status: Never smoker Assessment/Plan All Active Problems (Last Reviewed 10/12/20 @ 08:[address] Zach Chaves MD) Severe sepsis (Acute) Urinary tract infection with hematuria (Acute) Anemia due to blood loss (Acute) Severe sepsis (Acute) Gross hematuria (Acute) #Sepsis due to UTI SIRS criteria now / (wbc of 19.6) on IV ceftriaxone for UTI blood and urine cultures pending lactic acidosis has normalised #Gross hematuria catheter removed per urology; think it is due to uti. now passing clear urine. urology on board. Hb is 8. #Acute on chronic anemia due to gross hematuria Hb was 7.1 on admission; now~ 8 baseline Hb us ~ 8-9 transfuse if Hb <7 #.Thrombocytosis Platelets were 719 today. Was 677 on admission. She does have a history of recurrent thrombocytosis will trend and monitor #ESRD; on HD. Nephrology on board #Hypertension: metoprolol on hold. BP has been stable. Will monitor #C Diff: resolved. # ?Hematochezia and melena it is not clear whether patient confused gross hematuria with bleeding per rectum. no hematochezia or melena noticed since admission. #HFpEF; EF of 55-60% from previous echo in august 2019. Stable #Peptic ulcer disease: on protonix and sucralfate #DVT prophylaxis: SCDs Code status: full code Disposition: transfer out of ICU Inpatient E&M: 30063 Subs Hosp L2
[2020-10-13 10:53] LABS: Hematocrit 29.5 % (37-47); Hemoglobin 9.3 g/dL (12.0-15.0)
--- NOTE | 2020-10-13 10:53 | PN.RENAL_ITS ---
Patient Problems: Active and Suspected Problems (Last Reviewed 10/12/20 @ 08:[address] Zach Chaves MD) Severe sepsis (Acute) Urinary tract infection with hematuria (Acute) Anemia due to blood loss (Acute) Severe sepsis (Acute) Gross hematuria (Acute) Subjective: Patient is doing Ok today. No N/V/SOB couldn't tolerated whole HD session yesterday due to hypotension and Afib Received 2 RBC Us last night due to low Hgb 6.1 stratton cath is out - Physical Exam Vitals/I&O's: Vital Signs Temp Pulse Resp BP Pulse Ox 99.2 F H 109 H 16 125/74 H 97 10/13/20 08:00 10/13/20 10:00 10/13/20 10:00 10/13/20 10:00 10/13/20 10:00 Oxygen Delivery Method Room Air Weight: 79.878 kg Body Mass Index (BMI) 27.3 Finger Stick Blood Glucose 143 Intake and Output for Last 24 Hours 10/11/20 10/12/20 10/13/20 23:59 23:59 23:59 Intake Total 50 / 250 990 / 1090 1260 / 1260 Output Total 875 / 875 0 / 0 Balance 50 / -50 115 / 215 1260 / 1260 General: Alert, Oriented x3 HEENT: Atraumatic Oral: Moist Mucosa Neck: Supple, No JVD Lungs: Clear to auscultation, Normal air movement, No rhonchi, No wheeze Cardiovascular: Regular rate, Regular Rhythm, Normal S1, Normal S2 Abdomen: Bowel Sounds Present, Soft, Non Tender, Non-Distended Extremities: No clubbing, No cyanosis Skin: No rashes Musculoskeletal: No Tenderness to Palpation of Joints or Extremities Lymphatic: No Cervical, Supraclavicular, or Inguinal Adenopathy Neurological: Cranial nerves II-XII grossly intact, Neuro grossly intact Psych/Mental Status: Appropriate Microbiology Past 72 Hours 10/11/20 19:03 Urine, Clean Catch Urine Culture - Final Enterococcus faecalis Presumptive E. coli Laboratory Results 10/11/20 19:03: Urine Color Mitzi, Urine Clarity Turbid, Urine pH 7.0, Ur Specific [place] 1.010, Urine Protein 500 H, Urine Glucose (UA) Normal, Urine Ketones 5 H, Urine Occult Blood 250 H, Urine Nitrite Negative, Urine Bilirubin Negative, Urine Urobilinogen Normal, Ur Leukocyte Esterase Negative, Urine RBC > 100 SEEN, Urine WBC 0 SEEN, Ur Squamous Epith Cells 0-5 SEEN, Amorphous Sediment 1+ PHOS, Urine Bacteria 1+, Urine Mucus 0 SEEN 10/11/20 19:11: Diff Path Review Reviewed 10/12/20 00:15: Crossmatch See Detail 10/12/20 04:30: GGT 1143 H 10/12/20 12:00: Hgb 7.1 L, Hct 22.4 L 10/12/20 17:30: Hgb 7.1 L, Hct 23.1 L 10/12/20 23:30: Hgb 6.1 L, Hct 19.9 L 10/13/20 06:00: Hgb 8.4 L, Hct 26.3 L 10/13/20 06:35: Sodium 136, Potassium 4.4, Chloride 100, Carbon Dioxide 29.0, Anion Gap 7, BUN 25 H, Creatinine 3.09 H, Estim Creat Clear Calc 16.99, Est GFR (MDRD) Af Amer 20 L, Est GFR (MDRD) Non-Af 16 L, BUN/Creatinine Ratio 8.1 L, Glucose 99, Calcium 7.5 L, Total Bilirubin 1.20 H, AST 23, ALT 19, Alkaline Phosphatase 1224 H, Total Protein 4.6 L, Albumin 1.3 L, Globulin 3.3, Albumin/Globulin Ratio 0.4 L 10/13/20 10:42: Hgb Pending, Hct Pending 10/13/20 10:42: PT Pending, INR Pending Current Medications Acetaminophen (Acetaminophen 500 Mg Tablet) 500 mg PO Q6H PRN PRN PRN Reason: Pain 1-10/Fever Last Admin: 10/13/20 04:47 Dose: 500 mg Documented by: Alprazolam (Alprazolam 0.5 Mg Tablet) 0.5 mg PO TID PRN PRN PRN Reason: ANXIETY Last Admin: 10/12/20 04:16 Dose: 0.5 mg Documented by: Hydromorphone HCl (Hydromorphone 0.5 Mg/0.5 Ml Syringe) 0.5 mg IV Q3H PRN PRN PRN Reason: pain 6-10/10 Last Admin: 10/12/20 04:16 Dose: 0.5 mg Documented by: Ceftriaxone Sodium (Rocephin) 1 gm in 50 mls @ 100 mls/hr IV Q12 [facility] Last Infusion: 10/12/20 21:53 Dose: Infused Documented by: Sodium Chloride () 250 mls @ 15 mls/hr IV .[id number] PRN PRN Reason: Saline Flush Melatonin (Melatonin 3 Mg Tablet) 3 mg PO QHS PRN PRN PRN Reason: INSOMNIA Last Admin: 10/12/20 21:19 Dose: 3 mg Documented by: Ondansetron HCl (Ondansetron 4 Mg/2 Ml Vial) 4 mg IV Q8H PRN PRN PRN Reason: NAUSEA/VOMITING Pantoprazole Sodium (Pantoprazole Sodium 40 Mg Tablet) 40 mg PO BID [facility] Last Admin: 10/13/20 09:09 Dose: 40 mg Documented by: Prednisone (Prednisone 5 Mg Tablet) 2.5 mg PO TIDCM [facility] Last Admin: 10/13/20 09:09 Dose: 2.5 mg Documented by: Senna/Docusate Sodium (Senna/Docusate Sodium 1 Tablet) 2 tablet PO BID PRN PRN PRN Reason: Constipation Sevelamer Carbonate (Sevelamer Carbonate 800 Mg Tablet) 2,400 mg PO TIDCM [facility] Last Admin: 10/13/20 09:09 Dose: 2,400 mg Documented by: Sodium Chloride (0.9% Saline Lock 10 Ml Syringe) 10 - 40 ml IV UD PRN PRN Reason: SALINE FLUSH Last Admin: 10/12/20 12:42 Dose: 20 ml Documented by: Sucralfate (Sucralfate 1 Gm Tablet) 1 gm PO 1HR_ACHS [facility] Last Admin: 10/13/20 06:56 Dose: 1 gm Documented by: Medical Necessity - Tobacco Use Smoking Status: Never smoker Assessment/Plan All Active Problems (Last Reviewed 10/12/20 @ 08:[address] Zach Chaves MD) Severe sepsis (Acute) Urinary tract infection with hematuria (Acute) Anemia due to blood loss (Acute) Severe sepsis (Acute) Gross hematuria (Acute) 1- ESRD. On MWF HD schedule last HD session yesterday. next HD session tomorrow 2- Anemia: from ESRD and hematuria received 2 RBC U last night Will give Epo 8000 U sub Q today RBC transfusion as per the primary service 3- Hematuria: better likely from UTI stratton cath is out. to follow with urology office as OP for further work up 4- UTI: UC showed Enterococcus . Abx as per the primary service Renal team will continue to follow Please call if any question or concern at [phone] Gabriela Franks MD
[2020-10-13 11:03] LABS: Prothrombin Time (Protime)PT. 38.2 SECONDS (11.7-14.9)
[2020-10-13 11:07] LABS: International Normalized Ratio 3.9
[2020-10-13] MEDS: Ceftriaxone 1 GM/50 ML BAG IV ×2 (11:14→23:15)
[2020-10-13] MEDS: Epoetin Alfa epbx 10,000 UNITS/ML 8000 UNIT SC (11:15)
[2020-10-13 11:27] LABS: Absolute Lymphocyte Count 1.06 X10^3/uL (0.83-4.51); Basophil# 0.04 X10^3/uL; Basophil% 0.2 % (0-1); Eosinophil# 0.03 X10^3/uL; Eosinophils% 0.1 % (0-5); Lymphocyte # 1.06 X10^3/ul (4.0); Lymphocyte % 4.2 % (19-41); Mean Corp Hgb Conc 31.8 g/dL (32-36); Mean Corpuscular Hgb 29.3 pg (27.0-32.0); Mean Corpuscular Volume 92.2 fL (81-99); Monocyte# 0.53 X10^3/uL; Monocyte% 2.1 % (0-10); NRBC Flagged by Analyzer 1.1 % (0-5); Neutrophil # 23.01 X10^3/uL (2.7-7.7); Neutrophil % 90.7 % (47-70); POSITIVE DIFFERENTIAL YES; POSITIVE MORPHOLOGY YES; Platelet Count 663 K/mm3 (150-450); RBC Distribution Width CV 21.2 % (11.6-14.6); RBC Distribution Width SD 53.5 fl (35.1-43.9); Red Blood Count 3.21 M/mm3 (4.2-5.4); White Blood Count 25.4 K/mm3 (4.4-11.0)
[2020-10-13 11:31] LABS: Differential Indicated SCAN CRITERIA MET
[2020-10-13 11:51] LABS: Differential Comment SCANNED
[2020-10-13 11:52] LABS: Anisocytosis 1+; Polychromasia 1+; Target Cells RARE
[2020-10-13 13:38] LABS: Platelet Estimate MKD INC (ADEQ)
--- NOTE | 2020-10-13 14:43 | CASEMGMT ---
Social Work Note SW received call from Lv Greer stating pt had Palliative Care referral made the other day but Palliative wanted to make sure pt knew it would be private pay for services as pt has [facility]. SW in to speak with pt. SW introduced self and role at [facility]. SW asked pt about Palliative. Pt remembers someone speaking to her about Palliative. SW informed pt that Palliative wanted to make sure it would be private pay for visits if pt signed up for services. Pt asked how much that would be and this worker informed pt that this worker didn't know but could have Palliative speak to her regarding prices. Pt states she would like to speak to her first. SW informed pt that if she wishes to have Palliative speak with her while pt is at [facility] to let staff know. Pt states understanding. SW placed a call to [facility] and spoke with Shantal. SW updated Shantal that pt would like to speak with first. ROHINI did ask Shantal how much prices would be for private pay Palliative Services and Shantal states it just depends, depends on pt's acuity and length of visits. Shantal says that an initial visit would maybe be around $250. Tati Moore GUEST SERVICES REPRESENTATIVE, SURFACE WATER TECHNICIAN
--- NOTE | 2020-10-13 15:25 | NURSING ---
tele alarming - pt HR 150 per machine.. in room listened apical HR 152.. pt states feels fine denies heart beating fast..called for EKG tried having pt bear down to help decrease HR.. pt unable to had pt blow through a straw. . Watched HR go down to low 90's. listened to pt again pt now irregular heart beat. EGK picture sent to Dr. Rolon. pt not staying awake but will awake if her name is called. pt states feels fine
--- NOTE | 2020-10-13 15:31 | EKG12_ITS ---
Test Reason : Blood Pressure : / mmHG Vent. Rate : 097 BPM Atrial Rate : 097 BPM P-R Int : 200 ms QRS Dur : 102 ms QT Int : 348 ms P-R-T Axes : 071 -51 131 degrees QTc Int : 441 ms Sinus rhythm with marked sinus arrhythmia Left anterior fascicular block T wave abnormality, consider lateral ischemia Abnormal ECG When compared with ECG of 11-OCT-2020 18:10, No significant change was found Confirmed by KARL LOZANO, ARTEM ([id number]), associate entertainment editor EDIS JACOBS ([id number]) on 10/14/2020 12:55:55 P M Referred By: REINALDO Confirmed By:JAEL BARAJAS MD
--- NOTE | 2020-10-13 15:38 | NURSING ---
1531- primary RN informed of Dr. Rolon's response. 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
--- NOTE | 2020-10-13 15:45 | NURSING ---
pt being moved to PCU 106...report given to Andrea-RN in PCU - pt being m
[2020-10-13 18:05] LABS: Magnesium 1.9 mg/dL (1.6-2.6)
[2020-10-13 18:25] LABS: Hematocrit 28.4 % (37-47)
[2020-10-14] VITALS (11 sets, daily range): BP systolic 115–148; BP diastolic 72–93; PULSE 88–151; RESP 16–18; TEMP 36.7–36.9; O2SAT 93–98
[2020-10-14 00:27] LABS: Hematocrit 24.8 % (37-47); POSITIVE MORPHOLOGY YES
[2020-10-14 05:37] LABS: Absolute Lymphocyte Count 1.16 X10^3/uL (0.83-4.51); Absolute Neutrophil Count 21.8 X10^3/uL (2.0-7.7); Basophil# 0.03 X10^3/uL; Basophil% 0.1 % (0-1); Eosinophil# 0.02 X10^3/uL; Eosinophils% 0.1 % (0-5); Hematocrit 26.7 % (37-47); Hemoglobin 8.3 g/dL (12.0-15.0); Lymphocyte # 1.16 X10^3/ul (4.0); Lymphocyte % 4.8 % (19-41); Mean Corp Hgb Conc 31.1 g/dL (32-36); Mean Corpuscular Hgb 29.2 pg (27.0-32.0); Monocyte# 0.65 X10^3/uL; Monocyte% 2.7 % (0-10); NRBC Flagged by Analyzer 0.6 % (0-5); Neutrophil # 21.84 X10^3/uL (2.7-7.7); Neutrophil % 90.5 % (47-70); POSITIVE DIFFERENTIAL YES; POSITIVE MORPHOLOGY YES; Platelet Count 593 K/mm3 (150-450); RBC Distribution Width CV 21.8 % (11.6-14.6); RBC Distribution Width SD 58.3 fl (35.1-43.9); Red Blood Count 2.84 M/mm3 (4.2-5.4); White Blood Count 24.1 K/mm3 (4.4-11.0)
[2020-10-14 05:43] LABS: Differential Indicated SCAN CRITERIA MET
[2020-10-14 06:01] LABS: Anion Gap 8 (5-15); BUN 38 mg/dL (7-18); BUN/Creat Ratio 9.6 RATIO (10-20); Calcium,Total 8.3 mg/dL (8.5-10.1); Chloride 98 mmol/L (98-107); Creatinine, Serum 3.97 mg/dL (0.55-1.02); EST Glomerular Filtration Rate 12 mL/min (>60); Est Glom Filt Rate - Afr Amer 15 mL/min (>60); Estimated Creatinine Clearance 13.23 ml/min; Glucose 88 mg/dL (74-106); Potassium 4.6 mmol/L (3.5-5.1); Sodium Level 133 mmol/L (136-145)
[2020-10-14] MEDS: Sucralfate 1 GM Tablet PO ×2 (06:06→16:17)
[2020-10-14] MEDS: Pantoprazole Sodium 40 MG Tablet PO (08:25)
[2020-10-14] MEDS: SEVELAMER CARBONATE 800 MG TABLET 2400 MG PO ×2 (08:25→16:17)
[2020-10-14] MEDS: predniSONE 5 MG Tablet 2.5 MG PO ×2 (08:25→16:17)
--- NOTE | 2020-10-14 08:38 | PCM.PN.PUL ---
Patient Problems: Active and Suspected Problems (Last Reviewed 10/12/20 @ 08:[address] Zach Chaves MD) Severe sepsis (Acute) Urinary tract infection with hematuria (Acute) Anemia due to blood loss (Acute) Severe sepsis (Acute) Gross hematuria (Acute) Subjective: The patient was seen and examined at the bedside this morning. Events from the last 24 hours have been reviewed. The patient is currently afebrile, hemodynamically stable and maintaining appropriate oxygen saturations on room air. The patient has remained clinically stable following transfer out of the ICU. Coagulopathy has resolved. Hemoglobin remains stable. Objective: The patient's most recent lab work, culture data and imaging studies have all been personally reviewed. Surface echocardiogram from August 2019 revealed normal LV size with an ejection fraction of 55 to 60%. Pulmonary artery systolic pressure was estimated to be 54 mmHg. Preliminary urine culture was positive for Enterococcus species/presumptive E. coli. Blood cultures are pending. - Physical Exam Vitals/I&O's: Vital Signs Temp Pulse Resp BP Pulse Ox 98.4 F 90 18 117/73 93 10/14/20 06:02 10/14/20 07:45 10/14/20 06:02 10/14/20 06:02 10/14/20 06:02 Oxygen Delivery Method Room Air Weight: 175 lb 0.752 oz Body Mass Index (BMI) 27.3 Finger Stick Blood Glucose 143 Intake and Output for Last 24 Hours 10/12/20 10/13/20 10/14/20 23:59 23:59 23:59 Intake Total 990 / 1090 2151 / 2151 120 / 120 Output Total 875 / 875 0 / 0 Balance 115 / 215 2151 / 215 120 / 120 General: Alert, Cooperative, No apparent distress HEENT: Atraumatic, Normocephalic Oral: No Gingival or Mucosal Lesions/ Ulcerations Neck: Supple, No Nodes, Trachea Midline Lungs: Normal air movement Cardiovascular: Normal S1, Normal S2, Irregular Rate Abdomen: Bowel Sounds Present, Soft, Non Tender Extremities: No clubbing, No cyanosis, Edema Skin: No breakdown Musculoskeletal: No Tenderness to Palpation of Joints or Extremities Lymphatic: No Cervical, Supraclavicular, or Inguinal Adenopathy Neurological: Cranial nerves II-XII grossly intact, Neuro grossly intact Psych/Mental Status: Normal Affect, Appropriate Labs (Last 48 Hours) 10/11/20 10/11/20 10/12/20 19:03 19:11 00:15 WBC Corrected WBC RBC Hgb Hct MCV MCH MCHC RDW Std Deviation RDW Coeff of Mika Plt Count MPV Immature Gran % (Auto) Neut % (Auto) Lymph % (Auto) Barber % (Auto) Eos % (Auto) Baso % (Auto) Absolute Neuts (auto) Absolute Lymphs (auto) Total Counted Neutrophils % (Manual) Band Neutrophils % Lymphocytes % (Manual) Monocytes % (Manual) Eosinophils % (Manual) Basophils % (Manual) Metamyelocytes % Myelocytes % Promyelocytes % Blast Cells % Plasma Cell % (Manual) Other Cells % Nucleated RBC % Nucleated RBCs/100 WBC Differential Comment Diff Path Review Reviewed Hypersegmented Neuts Atypical Lymphocytes Reactive Lymphocytes Smudge Cells Toxic Granulation Toxic Vacuolation Dohle Bodies Marlin Rods Platelet Estimate Plt Morphology Comment RBC Morphology Polychromasia Hypochromasia Poikilocytosis Basophilic Stippling Anisocytosis Microcytosis Macrocytosis Spherocytes Sickle Cells Target Cells Tear Drop Cells Ovalocytes Stomatocytes [place] Bodies [place] Cells Bite Cells Crenated Cell Acanthocytes (Spur) Rouleaux Schistocytes PT INR Sodium Potassium Chloride Carbon Dioxide Anion Gap BUN Creatinine Estim Creat Clear Calc Est GFR (MDRD) Af Amer Est GFR (MDRD) Non-Af BUN/Creatinine Ratio Glucose Calcium Magnesium Total Bilirubin Direct Bilirubin GGT AST ALT Alkaline Phosphatase Total Protein Albumin Globulin Albumin/Globulin Ratio Urine Color Mitzi Urine Clarity Turbid Urine pH 7.0 Ur Specific [place] 1.010 Urine Protein 500 H Urine Glucose (UA) Normal Urine Ketones 5 H Urine Occult Blood 250 H Urine Nitrite Negative Urine Bilirubin Negative Urine Urobilinogen Normal Ur Leukocyte Esterase Negative Urine RBC > 100 SEEN Urine WBC 0 SEEN Ur Squamous Epith Cells 0-5 SEEN Amorphous Sediment 1+ PHOS Urine Bacteria 1+ Urine Mucus 0 SEEN Crossmatch See Detail 10/12/20 10/12/20 10/12/20 04:30 04:30 12:00 WBC Corrected WBC RBC Hgb 7.1 L Hct 22.4 L MCV MCH MCHC RDW Std Deviation RDW Coeff of Mika Plt Count MPV Immature Gran % (Auto) Neut % (Auto) Lymph % (Auto) Barber % (Auto) Eos % (Auto) Baso % (Auto) Absolute Neuts (auto) Absolute Lymphs (auto) Total Counted Neutrophils % (Manual) Band Neutrophils % Lymphocytes % (Manual) Monocytes % (Manual) Eosinophils % (Manual) Basophils % (Manual) Metamyelocytes % Myelocytes % Promyelocytes % Blast Cells % Plasma Cell % (Manual) Other Cells % Nucleated RBC % Nucleated RBCs/100 WBC Differential Comment Diff Path Review Hypersegmented Neuts Atypical Lymphocytes Reactive Lymphocytes Smudge Cells Toxic Granulation Toxic Vacuolation Dohle Bodies Marlin Rods Platelet Estimate Plt Morphology Comment RBC Morphology Polychromasia Hypochromasia Poikilocytosis Basophilic Stippling Anisocytosis Microcytosis Macrocytosis Spherocytes Sickle Cells Target Cells Tear Drop Cells Ovalocytes Stomatocytes [place] Bodies [place] Cells Bite Cells Crenated Cell Acanthocytes (Spur) Rouleaux Schistocytes PT INR Sodium Potassium Chloride Carbon Dioxide Anion Gap BUN Creatinine Estim Creat Clear Calc Est GFR (MDRD) Af Amer Est GFR (MDRD) Non-Af BUN/Creatinine Ratio Glucose Calcium Magnesium Total Bilirubin 1.70 H Direct Bilirubin 1.29 H GGT 1143 H AST 33 ALT 26 Alkaline Phosphatase 1527 H Total Protein 5.9 L Albumin 1.6 L Globulin 4.3 H Albumin/Globulin Ratio Urine Color Urine Clarity Urine pH Ur Specific [place] Urine Protein Urine Glucose (UA) Urine Ketones Urine Occult Blood Urine Nitrite Urine Bilirubin Urine Urobilinogen Ur Leukocyte Esterase Urine RBC Urine WBC Ur Squamous Epith Cells Amorphous Sediment Urine Bacteria Urine Mucus Crossmatch 10/12/20 10/12/20 10/13/20 17:30 23:30 06:00 WBC Corrected WBC RBC Hgb 7.1 L 6.1 L 8.4 L Hct 23.1 L 19.9 L 26.3 L MCV MCH MCHC RDW Std Deviation RDW Coeff of Mika Plt Count MPV Immature Gran % (Auto) Neut % (Auto) Lymph % (Auto) Barber % (Auto) Eos % (Auto) Baso % (Auto) Absolute Neuts (auto) Absolute Lymphs (auto) Total Counted Neutrophils % (Manual) Band Neutrophils % Lymphocytes % (Manual) Monocytes % (Manual) Eosinophils % (Manual) Basophils % (Manual) Metamyelocytes % Myelocytes % Promyelocytes % Blast Cells % Plasma Cell % (Manual) Other Cells % Nucleated RBC % Nucleated RBCs/100 WBC Differential Comment Diff Path Review Hypersegmented Neuts Atypical Lymphocytes Reactive Lymphocytes Smudge Cells Toxic Granulation Toxic Vacuolation Dohle Bodies Marlin Rods Platelet Estimate Plt Morphology Comment RBC Morphology Polychromasia Hypochromasia Poikilocytosis Basophilic Stippling Anisocytosis Microcytosis Macrocytosis Spherocytes Sickle Cells Target Cells Tear Drop Cells Ovalocytes Stomatocytes [place] Bodies [place] Cells Bite Cells Crenated Cell Acanthocytes (Spur) Rouleaux Schistocytes PT INR Sodium Potassium Chloride Carbon Dioxide Anion Gap BUN Creatinine Estim Creat Clear Calc Est GFR (MDRD) Af Amer Est GFR (MDRD) Non-Af BUN/Creatinine Ratio Glucose Calcium Magnesium Total Bilirubin Direct Bilirubin GGT AST ALT Alkaline Phosphatase Total Protein Albumin Globulin Albumin/Globulin Ratio Urine Color Urine Clarity Urine pH Ur Specific [place] Urine Protein Urine Glucose (UA) Urine Ketones Urine Occult Blood Urine Nitrite Urine Bilirubin Urine Urobilinogen Ur Leukocyte Esterase Urine RBC Urine WBC Ur Squamous Epith Cells Amorphous Sediment Urine Bacteria Urine Mucus Crossmatch 10/13/20 10/13/20 10/13/20 06:35 06:35 10:42 WBC 25.4 H Corrected WBC RBC 3.21 L Hgb 9.3 L Hct 29.5 L MCV 92.2 MCH 29.3 MCHC 31.8 L RDW Std Deviation 53.5 H RDW Coeff of Mika 21.2 H Plt Count 663 H MPV 10.0 Immature Gran % (Auto) 2.700 H Neut % (Auto) 90.7 H Lymph % (Auto) 4.2 L Barber % (Auto) 2.1 Eos % (Auto) 0.1 Baso % (Auto) 0.2 Absolute Neuts (auto) 23.0 H Absolute Lymphs (auto) 1.06 Total Counted Neutrophils % (Manual) Band Neutrophils % Lymphocytes % (Manual) Monocytes % (Manual) Eosinophils % (Manual) Basophils % (Manual) Metamyelocytes % Myelocytes % Promyelocytes % Blast Cells % Plasma Cell % (Manual) Other Cells % Nucleated RBC % 1.1 Nucleated RBCs/100 WBC Differential Comment SCANNED Diff Path Review Hypersegmented Neuts Atypical Lymphocytes Reactive Lymphocytes Smudge Cells Toxic Granulation Toxic Vacuolation Dohle Bodies Marlin Rods Platelet Estimate MKD INC Plt Morphology Comment RBC Morphology Polychromasia 1+ Hypochromasia Poikilocytosis Basophilic Stippling Anisocytosis 1+ Microcytosis Macrocytosis Spherocytes Sickle Cells Target Cells RARE Tear Drop Cells Ovalocytes Stomatocytes [place] Bodies [place] Cells Bite Cells Crenated Cell Acanthocytes (Spur) Rouleaux Schistocytes PT INR Sodium 136 Potassium 4.4 Chloride 100 Carbon Dioxide 29.0 Anion Gap 7 BUN 25 H Creatinine 3.09 H Estim Creat Clear Calc 16.99 Est GFR (MDRD) Af Amer 20 L Est GFR (MDRD) Non-Af 16 L BUN/Creatinine Ratio 8.1 L Glucose 99 Calcium 7.5 L Magnesium 1.9 Total Bilirubin 1.20 H Direct Bilirubin GGT AST 23 ALT 19 Alkaline Phosphatase 1224 H Total Protein 4.6 L Albumin 1.3 L Globulin 3.3 Albumin/Globulin Ratio 0.4 L Urine Color Urine Clarity Urine pH Ur Specific [place] Urine Protein Urine Glucose (UA) Urine Ketones Urine Occult Blood Urine Nitrite Urine Bilirubin Urine Urobilinogen Ur Leukocyte Esterase Urine RBC Urine WBC Ur Squamous Epith Cells Amorphous Sediment Urine Bacteria Urine Mucus Crossmatch 10/13/20 10/13/20 10/13/20 10:42 10:42 18:18 WBC Cancelled Corrected WBC Cancelled RBC Cancelled Hgb Cancelled 9.0 L Hct Cancelled 28.4 L MCV Cancelled MCH Cancelled MCHC Cancelled RDW Std Deviation Cancelled RDW Coeff of Mika Cancelled Plt Count Cancelled MPV Cancelled Immature Gran % (Auto) Cancelled Neut % (Auto) Cancelled Lymph % (Auto) Cancelled Barber % (Auto) Cancelled Eos % (Auto) Cancelled Baso % (Auto) Cancelled Absolute Neuts (auto) Cancelled Absolute Lymphs (auto) Cancelled Total Counted Cancelled Neutrophils % (Manual) Cancelled Band Neutrophils % Cancelled Lymphocytes % (Manual) Cancelled Monocytes % (Manual) Cancelled Eosinophils % (Manual) Cancelled Basophils % (Manual) Cancelled Metamyelocytes % Cancelled Myelocytes % Cancelled Promyelocytes % Cancelled Blast Cells % Cancelled Plasma Cell % (Manual) Cancelled Other Cells % Cancelled Nucleated RBC % Cancelled Nucleated RBCs/100 WBC Cancelled Differential Comment Cancelled Diff Path Review Cancelled Hypersegmented Neuts Cancelled Atypical Lymphocytes Cancelled Reactive Lymphocytes Cancelled Smudge Cells Cancelled Toxic Granulation Cancelled Toxic Vacuolation Cancelled Dohle Bodies Cancelled Marlin Rods Cancelled Platelet Estimate Cancelled Plt Morphology Comment Cancelled RBC Morphology Cancelled Polychromasia Cancelled Hypochromasia Cancelled Poikilocytosis Cancelled Basophilic Stippling Cancelled Anisocytosis Cancelled Microcytosis Cancelled Macrocytosis Cancelled Spherocytes Cancelled Sickle Cells Cancelled Target Cells Cancelled Tear Drop Cells Cancelled Ovalocytes Cancelled Stomatocytes Cancelled [place] Bodies Cancelled [place] Cells Cancelled Bite Cells Cancelled Crenated Cell Cancelled Acanthocytes (Spur) Cancelled Rouleaux Cancelled Schistocytes Cancelled PT 38.2 H INR 3.9 H* Sodium Potassium Chloride Carbon Dioxide Anion Gap BUN Creatinine Estim Creat Clear Calc Est GFR (MDRD) Af Amer Est GFR (MDRD) Non-Af BUN/Creatinine Ratio Glucose Calcium Magnesium Total Bilirubin Direct Bilirubin GGT AST ALT Alkaline Phosphatase Total Protein Albumin Globulin Albumin/Globulin Ratio Urine Color Urine Clarity Urine pH Ur Specific [place] Urine Protein Urine Glucose (UA) Urine Ketones Urine Occult Blood Urine Nitrite Urine Bilirubin Urine Urobilinogen Ur Leukocyte Esterase Urine RBC Urine WBC Ur Squamous Epith Cells Amorphous Sediment Urine Bacteria Urine Mucus Crossmatch 10/14/20 10/14/20 10/14/20 00:15 05:04 05:04 WBC 24.1 H Corrected WBC RBC 2.84 L Hgb 8.0 L 8.3 L Hct 24.8 L 26.7 L MCV 94.0 MCH 29.2 MCHC 31.1 L RDW Std Deviation 58.3 H RDW Coeff of Mika 21.8 H Plt Count 593 H MPV 10.0 Immature Gran % (Auto) 1.800 H Neut % (Auto) 90.5 H Lymph % (Auto) 4.8 L Barber % (Auto) 2.7 Eos % (Auto) 0.1 Baso % (Auto) 0.1 Absolute Neuts (auto) 21.8 H Absolute Lymphs (auto) 1.16 Total Counted Neutrophils % (Manual) Band Neutrophils % Lymphocytes % (Manual) Monocytes % (Manual) Eosinophils % (Manual) Basophils % (Manual) Metamyelocytes % Myelocytes % Promyelocytes % Blast Cells % Plasma Cell % (Manual) Other Cells % Nucleated RBC % 0.6 Nucleated RBCs/100 WBC Differential Comment Diff Path Review Hypersegmented Neuts Atypical Lymphocytes Reactive Lymphocytes Smudge Cells Toxic Granulation Toxic Vacuolation Dohle Bodies Marlin Rods Platelet Estimate Plt Morphology Comment RBC Morphology Polychromasia Hypochromasia Poikilocytosis Basophilic Stippling Anisocytosis Microcytosis Macrocytosis Spherocytes Sickle Cells Target Cells Tear Drop Cells Ovalocytes Stomatocytes [place] Bodies [place] Cells Bite Cells Crenated Cell Acanthocytes (Spur) Rouleaux Schistocytes PT INR Sodium 133 L Potassium 4.6 Chloride 98 Carbon Dioxide 27.0 Anion Gap 8 BUN 38 H Creatinine 3.97 H Estim Creat Clear Calc 13.23 Est GFR (MDRD) Af Amer 15 L Est GFR (MDRD) Non-Af 12 L BUN/Creatinine Ratio 9.6 L Glucose 88 Calcium 8.3 L Magnesium Total Bilirubin Direct Bilirubin GGT AST ALT Alkaline Phosphatase Total Protein Albumin Globulin Albumin/Globulin Ratio Urine Color Urine Clarity Urine pH Ur Specific [place] Urine Protein Urine Glucose (UA) Urine Ketones Urine Occult Blood Urine Nitrite Urine Bilirubin Urine Urobilinogen Ur Leukocyte Esterase Urine RBC Urine WBC Ur Squamous Epith Cells Amorphous Sediment Urine Bacteria Urine Mucus Crossmatch Microbiology 10/11/20 20:29 Blood Culture (Wb) - Anticubital Right Blood Culture - Preliminary No growth in 48 hours. 10/11/20 20:13 Blood Culture (Wb) - Anticubital Right Blood Culture - Preliminary 10/11/20 19:03 Urine, Clean Catch Urine Culture - Final Enterococcus faecalis Presumptive E. coli Current Medications Acetaminophen (Acetaminophen 500 Mg Tablet) 500 mg PO Q6H PRN PRN PRN Reason: Pain 1-10/Fever Last Admin: 10/13/20 11:23 Dose: 500 mg Documented by: Alprazolam (Alprazolam 0.5 Mg Tablet) 0.5 mg PO TID PRN PRN PRN Reason: ANXIETY Last Admin: 10/12/20 04:16 Dose: 0.5 mg Documented by: Ceftriaxone Sodium (Rocephin) 1 gm in 50 mls @ 100 mls/hr IV Q12 RUBIO Last Infusion: 10/13/20 23:45 Dose: Infused Documented by: Sodium Chloride () 250 mls @ 15 mls/hr IV .[id number] PRN PRN Reason: Saline Flush Melatonin (Melatonin 3 Mg Tablet) 3 mg PO QHS PRN PRN PRN Reason: INSOMNIA Last Admin: 10/12/20 21:19 Dose: 3 mg Documented by: Metoprolol Tartrate (Metoprolol Tartrate 5 Mg/5 Ml Vial) 2.5 mg IV Q6H PRN PRN PRN Reason: Tachycardia Ondansetron HCl (Ondansetron 4 Mg/2 Ml Vial) 4 mg IV Q8H PRN PRN PRN Reason: NAUSEA/VOMITING Pantoprazole Sodium (Pantoprazole Sodium 40 Mg Tablet) 40 mg PO BID [facility] Last Admin: 10/14/20 08:25 Dose: 40 mg Documented by: Prednisone (Prednisone 5 Mg Tablet) 2.5 mg PO TIDCM [facility] Last Admin: 10/14/20 08:25 Dose: 2.5 mg Documented by: Senna/Docusate Sodium (Senna/Docusate Sodium 1 Tablet) 2 tablet PO BID PRN PRN PRN Reason: Constipation Sevelamer Carbonate (Sevelamer Carbonate 800 Mg Tablet) 2,400 mg PO TIDCM [facility] Last Admin: 10/14/20 08:25 Dose: 2,400 mg Documented by: Sodium Chloride (0.9% Saline Lock 10 Ml Syringe) 10 - 40 ml IV UD PRN PRN Reason: SALINE FLUSH Last Admin: 10/12/20 12:42 Dose: 20 ml Documented by: Sucralfate (Sucralfate 1 Gm Tablet) 1 gm PO 1HR_ACHS [facility] Last Admin: 10/14/20 06:06 Dose: 1 gm Documented by: Medical Necessity - Tobacco Use Smoking Status: Never smoker Assessment/Plan All Active Problems (Last Reviewed 10/12/20 @ 08:[address] Zach Chaves MD) Severe sepsis (Acute) Urinary tract infection with hematuria (Acute) Anemia due to blood loss (Acute) Severe sepsis (Acute) Gross hematuria (Acute) RECOMMENDATIONS: 1. Continue antimicrobials. 2. Continue hemodialysis per nephrology recommendations. 3. Continue to monitor H&H and transfuse if hemoglobin is below 7 g/dL. 4. Outpatient urology follow-up. 5. Given the patient's lack of further ICU or pulmonary needs, will sign off. Please call with any additional questions. IMPRESSIONS: 1. Severe sepsis secondary to Enterococcus urinary tract source of infection Plan to continue current supportive measures with antimicrobials. The patient remains hemodynamically stable at this time. 2. Gross hematuria Continuous bladder irrigation has been discontinued. Urology is recommending outpatient follow-up. 3. Recent C. difficile colitis infection Continue p.o. vancomycin to complete treatment course per outpatient recommendations. 4. End-stage renal disease on hemodialysis Nephrology following to assist with hemodialysis needs. 5. Anemia Continue to monitor H&H closely. Plan to transfuse if hemoglobin drops below 7 g/dL. 6. History of AA amyloidosis/anxiety/rheumatoid arthritis Complicates care, management, recovery and prognosis. Continue home medications as indicated. This note was generated with [employer] dictation software. It may contain incorrect words, spelling, and punctuation that were not noted in checking the note before signing. Inpatient E&M: 03291 Subs Hosp L2
[2020-10-14 09:23] LABS: International Normalized Ratio 1.4; Prothrombin Time (Protime)PT. 16.4 SECONDS (11.7-14.9)
--- NOTE | 2020-10-14 10:41 | PCM.PN.REN ---
Patient Problems: Active and Suspected Problems (Last Reviewed 10/12/20 @ 08:[address] Zach Chaves MD) Severe sepsis (Acute) Urinary tract infection with hematuria (Acute) Anemia due to blood loss (Acute) Severe sepsis (Acute) Gross hematuria (Acute) Subjective: Patient is doing Ok still with loose stool No SOB. No nauseas No vomiting - Physical Exam Vitals/I&O's: Vital Signs Temp Pulse Resp BP Pulse Ox 98.0 F 112 H 18 148/93 H 96 10/14/20 08:30 10/14/20 08:30 10/14/20 08:30 10/14/20 08:30 10/14/20 08:30 Oxygen Delivery Method Room Air Weight: 79.4 kg Body Mass Index (BMI) 27.3 Finger Stick Blood Glucose 143 Intake and Output for Last 24 Hours 10/12/20 10/13/20 10/14/20 23:59 23:59 23:59 Intake Total 990 / 1090 215 / 215 120 / 120 Output Total 875 / 875 0 / 0 Balance 115 / 215 2150 / 2150 120 / 120 General: Alert, Oriented x3 HEENT: Atraumatic Oral: Moist Mucosa Neck: Supple, No JVD Lungs: Clear to auscultation, Normal air movement, No rhonchi Cardiovascular: Regular rate, Regular Rhythm, Normal S1, Normal S2 Abdomen: Bowel Sounds Present, Soft, Non Tender, Non-Distended Extremities: No clubbing, No cyanosis Skin: No rashes Musculoskeletal: No Tenderness to Palpation of Joints or Extremities Lymphatic: No Cervical, Supraclavicular, or Inguinal Adenopathy Neurological: Cranial nerves II-XII grossly intact, Neuro grossly intact Psych/Mental Status: Appropriate Microbiology Past 72 Hours 10/11/20 20:29 Blood Culture (Wb) - Anticubital Right Blood Culture - Preliminary No growth in 48 hours. 10/11/20 20:13 Blood Culture (Wb) - Anticubital Right Blood Culture - Preliminary 10/11/20 19:03 Urine, Clean Catch Urine Culture - Final Enterococcus faecalis Presumptive E. coli Laboratory Results 10/13/20 06:35: Magnesium 1.9 10/13/20 10:42: WBC 25.4 H, RBC 3.21 L, Hgb 9.3 L, Hct 29.5 L, MCV 92.2, MCH 29.3, MCHC 31.8 L, RDW Std Deviation 53.5 H, RDW Coeff of Mika 21.2 H, Plt Count 663 H, MPV 10.0, Immature Gran % (Auto) 2.700 H, Neut % (Auto) 90.7 H, Lymph % (Auto) 4.2 L, [place] % (Auto) 2.1, Eos % (Auto) 0.1, Baso % (Auto) 0.2, Absolute Neuts (auto) 23.0 H, Absolute Lymphs (auto) 1.06, Nucleated RBC % 1.1, Differential Comment SCANNED, Platelet Estimate MKD INC, Polychromasia 1+, Anisocytosis 1+, Target Cells RARE 10/13/20 10:42: PT 38.2 H, INR 3.9 H* 10/13/20 10:42: WBC Cancelled, Corrected WBC Cancelled, RBC Cancelled, Hgb Cancelled, Hct Cancelled, MCV Cancelled, MCH Cancelled, MCHC Cancelled, RDW Std Deviation Cancelled, RDW Coeff of Mika Cancelled, Plt Count Cancelled, MPV Cancelled, Immature Gran % (Auto) Cancelled, Neut % (Auto) Cancelled, Lymph % (Auto) Cancelled, [place] % (Auto) Cancelled, Eos % (Auto) Cancelled, Baso % (Auto) Cancelled, Absolute Neuts (auto) Cancelled, Absolute Lymphs (auto) Cancelled, Total Counted Cancelled, Neutrophils % (Manual) Cancelled, Band Neutrophils % Cancelled, Lymphocytes % (Manual) Cancelled, Monocytes % (Manual) Cancelled, Eosinophils % (Manual) Cancelled, Basophils % (Manual) Cancelled, Metamyelocytes % Cancelled, Myelocytes % Cancelled, Promyelocytes % Cancelled, Blast Cells % Cancelled, Plasma Cell % (Manual) Cancelled, Other Cells % Cancelled, Nucleated RBC % Cancelled, Nucleated RBCs/100 WBC Cancelled, Differential Comment Cancelled, Diff Path Review Cancelled, Hypersegmented Neuts Cancelled, Atypical Lymphocytes Cancelled, Reactive Lymphocytes Cancelled, Smudge Cells Cancelled, Toxic Granulation Cancelled, Toxic Vacuolation Cancelled, Dohle Bodies Cancelled, Marlin Rods Cancelled, Platelet Estimate Cancelled, Plt Morphology Comment Cancelled, RBC Morphology Cancelled, Polychromasia Cancelled, Hypochromasia Cancelled, Poikilocytosis Cancelled, Basophilic Stippling Cancelled, Anisocytosis Cancelled, Microcytosis Cancelled, Macrocytosis Cancelled, Spherocytes Cancelled, Sickle Cells Cancelled, Target Cells Cancelled, Tear Drop Cells Cancelled, Ovalocytes Cancelled, Stomatocytes Cancelled, [place] Bodies Cancelled, Almond Cells Cancelled, Bite Cells Cancelled, Crenated Cell Cancelled, Acanthocytes (Spur) Cancelled, Rouleaux Cancelled, Schistocytes Cancelled 10/13/20 18:18: Hgb 9.0 L, Hct 28.4 L 10/14/20 00:15: Hgb 8.0 L, Hct 24.8 L 10/14/20 05:04: WBC 24.1 H, RBC 2.84 L, Hgb 8.3 L, Hct 26.7 L, MCV 94.0, MCH 29.2, MCHC 31.1 L, RDW Std Deviation 58.3 H, RDW Coeff of Mika 21.8 H, Plt Count 593 H, MPV 10.0, Immature Gran % (Auto) 1.800 H, Neut % (Auto) 90.5 H, Lymph % (Auto) 4.8 L, [place] % (Auto) 2.7, Eos % (Auto) 0.1, Baso % (Auto) 0.1, Absolute Neuts (auto) 21.8 H, Absolute Lymphs (auto) 1.16, Nucleated RBC % 0.6 10/14/20 05:04: Sodium 133 L, Potassium 4.6, Chloride 98, Carbon Dioxide 27.0, Anion Gap 8, BUN 38 H, Creatinine 3.97 H, Estim Creat Clear Calc 13.23, Est GFR (MDRD) Af Amer 15 L, Est GFR (MDRD) Non-Af 12 L, BUN/Creatinine Ratio 9.6 L, Glucose 88, Calcium 8.3 L 10/14/20 05:04: PT 16.4 H, INR 1.4 Current Medications Acetaminophen (Acetaminophen 500 Mg Tablet) 500 mg PO Q6H PRN PRN PRN Reason: Pain 1-10/Fever Last Admin: 10/13/20 11:23 Dose: 500 mg Documented by: Alprazolam (Alprazolam 0.5 Mg Tablet) 0.5 mg PO TID PRN PRN PRN Reason: ANXIETY Last Admin: 10/12/20 04:16 Dose: 0.5 mg Documented by: Ceftriaxone Sodium (Rocephin) 1 gm in 50 mls @ 100 mls/hr IV Q12 [facility] Last Infusion: 10/13/20 23:45 Dose: Infused Documented by: Sodium Chloride () 250 mls @ 15 mls/hr IV .[id number] PRN PRN Reason: Saline Flush Melatonin (Melatonin 3 Mg Tablet) 3 mg PO QHS PRN PRN PRN Reason: INSOMNIA Last Admin: 10/12/20 21:19 Dose: 3 mg Documented by: Metoprolol Tartrate (Metoprolol Tartrate 5 Mg/5 Ml Vial) 2.5 mg IV Q6H PRN PRN PRN Reason: Tachycardia Ondansetron HCl (Ondansetron 4 Mg/2 Ml Vial) 4 mg IV Q8H PRN PRN PRN Reason: NAUSEA/VOMITING Pantoprazole Sodium (Pantoprazole Sodium 40 Mg Tablet) 40 mg PO BID [facility] Last Admin: 10/14/20 08:25 Dose: 40 mg Documented by: Prednisone (Prednisone 5 Mg Tablet) 2.5 mg PO TIDCM [facility] Last Admin: 10/14/20 08:25 Dose: 2.5 mg Documented by: Senna/Docusate Sodium (Senna/Docusate Sodium 1 Tablet) 2 tablet PO BID PRN PRN PRN Reason: Constipation Sevelamer Carbonate (Sevelamer Carbonate 800 Mg Tablet) 2,400 mg PO TIDCM [facility] Last Admin: 10/14/20 08:25 Dose: 2,400 mg Documented by: Sodium Chloride (0.9% Saline Lock 10 Ml Syringe) 10 - 40 ml IV UD PRN PRN Reason: SALINE FLUSH Last Admin: 10/12/20 12:42 Dose: 20 ml Documented by: Sucralfate (Sucralfate 1 Gm Tablet) 1 gm PO 1HR_ACHS [facility] Last Admin: 10/14/20 06:06 Dose: 1 gm Documented by: Medical Necessity - Tobacco Use Smoking Status: Never smoker Assessment/Plan All Active Problems (Last Reviewed 10/12/20 @ 08:[address] Zach Chaves MD) Severe sepsis (Acute) Urinary tract infection with hematuria (Acute) Anemia due to blood loss (Acute) Severe sepsis (Acute) Gross hematuria (Acute) 1- ESRD. On MWF HD schedule HD session today with UF 1-2 L 2- Anemia: from ESRD and hematuria received 2 RBC U last night received Epo 8000 U sub Q 10/13 RBC transfusion as per the primary service 3- Hematuria: better likely from UTI stratton cath is out. to follow with urology office as OP for further work up 4- UTI: UC showed Enterococcus species . Abx as per the primary service Renal team will continue to follow Please call if any question or concern at [phone] Gabriela Franks MD
[2020-10-14] MEDS: Acetaminophen 500 MG Tablet PO (13:10)
--- NOTE | 2020-10-14 14:14 | DCINST_ITS ---
- Discharge Diagnoses Current Active Problems: Current Active and Chronic Problems (Last Reviewed 10/12/20 @ 08:[address] Zach Chaves MD) ESRD (end stage renal disease) on dialysis (Chronic) Hyperkalemia (Chronic) Anemia (Chronic) Chronic renal failure (Chronic) Diarrhea (Chronic) Severe sepsis (Acute) Urinary tract infection with hematuria (Acute) Anemia due to blood loss (Acute) Severe sepsis (Acute) Gross hematuria (Acute) NSTEMI (non-ST elevated myocardial infarction) (Chronic) Dialysis patient (Chronic) Elevated troponin (Chronic) Congestive heart failure (Chronic) Rheumatoid arthritis (Chronic) Amyloidosis (Chronic) CKD (chronic kidney disease) stage 4, GFR 15-29 ml/min (Chronic) Renal anasarca (Chronic) You will use the following diet at home:: Cardiac Your food should be the consistency of: Regular Your liquids should be the consistency of: Regular/Thin Discharge Activity: Return to Normal Activity Weight Bearing Status: Weight bearing as tolerated Call your doctor if you observe: Fever of 101 or Higher, Shortness of breath, Dizziness, Fainting spells, Swelling in the ankles Instructions: ED Hematuria, ED Urinary Retention, Female Allergies/Adverse Reactions: Allergies No Known Allergies Allergy (Verified 10/11/20 17:10) Medications to take at Discharge Sevelamer Carbonate 3 tab PO TIDCM 10/29/19 Alprazolam [Xanax] 0.5 mg PO TID PRN PRN 06/23/20 Prednisone 2.5 mg PO TID 06/23/20 Metoprolol(XL)Succ [Toprol Xl (Beta Azra)] 25 mg PO DAILY #0 07/05/20 Acetaminophen [Tylenol] 500 mg PO Q6H PRN PRN 09/23/20 Pantoprazole Sodium [Protonix] 40 mg PO BID #60 tab 09/26/20 Diphenoxylate/Atrop [Lomotil] 1 tab PO BID PRN PRN #6 tab 09/28/20 Indomethacin 25 mg PO TID 10/11/20 Sucralfate [Carafate] 1 gm PO 4X/DAY 10/11/20 Ciprofloxacin HCl 500 mg PO BID #10 tab 10/14/20 Loperamide HCl [Loperamide] 2 mg PO Q6H PRN PRN #30 tab 10/14/20 The following prescriptions were given: Ciprofloxacin HCl 500 mg PO BID #10 tab Transmission Status: Pending to [facility] Loperamide HCl [Loperamide] 2 mg PO Q6H PRN PRN #30 tab PRN Reason: Diarrhea/Loose Stools Transmission Status: Pending to [facility] Primary Care Physician: Jabier Arboleda DO [Primary Care Provider] - Please follow up with your Primary Care Physician in: 1-2 weeks Test Results: Test results from this visit will be discussed in further detail at your follow- up appointment, if applicable. Please Follow Up With: Zach Chaves MD When: 2-3 weeks Please Follow Up With: Gabriela Franks MD When: 1-2 weeks Proposed Discharge Date: 10/14/20
--- NOTE | 2020-10-14 14:21 | DS.PCM_ITS ---
Discharge Date and Diagnosis - Problem List Patient Problems: Active and Suspected Problems (Last Reviewed 10/12/20 @ 08:[address] Zach Chaves MD) Severe sepsis (Acute) Urinary tract infection with hematuria (Acute) Anemia due to blood loss (Acute) Severe sepsis (Acute) Gross hematuria (Acute) Date of Admission: 10/11/20 Date of Discharge: 10/13/20 - Primary Discharge Diagnosis Acute Problems: Active Problems (Last Reviewed 10/12/20 @ 08:[address] Zach Chaves MD) Severe sepsis (Acute) Urinary tract infection with hematuria (Acute) Anemia due to blood loss (Acute) Severe sepsis (Acute) Gross hematuria (Acute) - Secondary Discharge Diagnosis Chronic Problems: Chronic Problems (Last Reviewed 10/12/20 @ 08:[address] Zach Chaves MD) ESRD (end stage renal disease) on dialysis (Chronic) Hyperkalemia (Chronic) Anemia (Chronic) Chronic renal failure (Chronic) Diarrhea (Chronic) NSTEMI (non-ST elevated myocardial infarction) (Chronic) Dialysis patient (Chronic) Elevated troponin (Chronic) Congestive heart failure (Chronic) Rheumatoid arthritis (Chronic) Amyloidosis (Chronic) CKD (chronic kidney disease) stage 4, GFR 15-29 ml/min (Chronic) Renal anasarca (Chronic) Hospital Course and Treatment critical care- Dr Linton urology- Dr Chaves Operations: None Procedures: None Summary of Care Provided: The patient is a 65 year old F with a past medical history as outlined was admitted through the ED on 10/11/2020 with a complaint of hematuria for about 3 days with associated dysuria and urgency. She denied any abdominal pain, nausea or vomiting. On admission she was noted to be afebrile and hemodynamically stable. White cell count was elevated at 17,000 and hemoglobin was 7.1 with chemistry showing creatinine of 4.18 and lactic acid of 2.1. She was admitted and managed for severe sepsis due to UTI and hematuria and hydrated with IV fluids and started on IV ceftriaxone. She was initially admitted to the ICU and was started on continuous bladder irrigation. Urology was also consulted. Patient also had a recent C. difficile colitis infection and was on a course of p.o. vancomycin and she completed the course during admission. Acid was initially elevated but this subsequently trended down. And also had thrombocytosis which was chronic. Nephrology was consulted for patient to be having dialysis. Her metoprolol was held on admission as blood pressure has been running low. Urology reviewed patient and thought that hematuria was due to UTI. Rivas catheter was therefore discontinued per urology instructions. Urine remained clear after hematuria resolved. She was transferred out of the ICU. She remained stable. Urine culture E. coli and Enterococcus faecalis. He was discharged home on 10/14/2020. Review of EMR showed that she had tested positive for C. difficile antigen but the active toxin was negative. So despite is still complaining of some diarrhea, decision was made not to discharge her on any more oral vancomycin. She was discharged on loperamide and also discharged on p.o. ciprofloxacin. She is to follow-up with her primary care doctor and urology within 1 to 2 weeks. She is also to follow-up with nephrology for dialysis. Patient seen and examined prior to discharge. She had no complaints. Review of systems otherwise negative. Labs and vitals reviewed. Home medication reviewed and reconciled. O/E: Vital Signs Temp Pulse Resp BP Pulse Ox 98.0 F 124 H 18 142/78 H 94 10/14/20 15:35 10/14/20 16:16 10/14/20 15:35 10/14/20 15:35 10/14/20 15:35 General: Alert, Oriented x3, Cooperative HEENT: Atraumatic, PERRLA, EOMI, Normocephalic Oral: Dry Mucosa Neck: Supple, No JVD, Negative Carotid Bruits Lungs: Clear to auscultation, Normal air movement, No rhonchi, No wheeze, No rales Cardiovascular: Regular rate, Regular Rhythm, Normal S1, Normal S2, No murmurs Abdomen: Bowel Sounds Present, Soft, Non-Distended, no tenderness Extremities: No clubbing, No cyanosis, No edema, Capillary Refill Less than 3 Seconds Skin: No rashes, No breakdown Musculoskeletal: No Tenderness to Palpation of Joints or Extremities Lymphatic: No Cervical, Supraclavicular, or Inguinal Adenopathy Neurological: Cranial nerves II-XII grossly intact, Neuro grossly intact, Motor Exam 5/5 strength throughout Psych/Mental Status: Flat Affect, Alert and oriented to time, place, person, mood and affect Plan is for discharge home today., Her metoprolol dose was decreased to 12.5 mg twice daily from 25mg daily on account of her blood pressure running low. Patient Problems: Active and Suspected Problems (Last Reviewed 10/12/20 @ 08:[address] Zach Chaves MD) Severe sepsis (Acute) Urinary tract infection with hematuria (Acute) Anemia due to blood loss (Acute) Severe sepsis (Acute) Gross hematuria (Acute) - Physical Exam Vitals/I&O's: Vital Signs Temp Pulse Resp BP Pulse Ox 98.0 F 90 18 148/93 H 96 10/14/20 08:30 10/14/20 11:50 10/14/20 08:30 10/14/20 08:30 10/14/20 08:30 Oxygen Delivery Method Room Air Weight: 175 lb 0.752 oz Body Mass Index (BMI) 27.3 Finger Stick Blood Glucose 143 Intake and Output for Last 24 Hours 10/12/20 10/13/20 10/14/20 23:59 23:59 23:59 Intake Total 990 / 1090 2151 / 2151 360 / 360 Output Total 875 / 875 0 / 0 Balance 115 / 215 2151 / 2151 360 / 360 Microbiology Past 72 Hours 10/11/20 20:29 Blood Culture (Wb) - Anticubital Right Blood Culture - Preliminary No growth in 48 hours. 10/11/20 20:13 Blood Culture (Wb) - Anticubital Right Blood Culture - Preliminary 10/11/20 19:03 Urine, Clean Catch Urine Culture - Final Enterococcus faecalis Presumptive E. coli Laboratory Results 10/13/20 06:35: Magnesium 1.9 10/13/20 18:18: Hgb 9.0 L, Hct 28.4 L 10/14/20 00:15: Hgb 8.0 L, Hct 24.8 L 10/14/20 05:04: WBC 24.1 H, RBC 2.84 L, Hgb 8.3 L, Hct 26.7 L, MCV 94.0, MCH 29.2, MCHC 31.1 L, RDW Std Deviation 58.3 H, RDW Coeff of Mika 21.8 H, Plt Count 593 H, MPV 10.0, Immature Gran % (Auto) 1.800 H, Neut % (Auto) 90.5 H, Lymph % (Auto) 4.8 L, [place] % (Auto) 2.7, Eos % (Auto) 0.1, Baso % (Auto) 0.1, Absolute Neuts (auto) 21.8 H, Absolute Lymphs (auto) 1.16, Nucleated RBC % 0.6 10/14/20 05:04: Sodium 133 L, Potassium 4.6, Chloride 98, Carbon Dioxide 27.0, Anion Gap 8, BUN 38 H, Creatinine 3.97 H, Estim Creat Clear Calc 13.23, Est GFR (MDRD) Af Amer 15 L, Est GFR (MDRD) Non-Af 12 L, BUN/Creatinine Ratio 9.6 L, Glucose 88, Calcium 8.3 L 10/14/20 05:04: PT 16.4 H, INR 1.4 Current Medications Acetaminophen (Acetaminophen 500 Mg Tablet) 500 mg PO Q6H PRN PRN PRN Reason: Pain 1-10/Fever Last Admin: 10/13/20 11:23 Dose: 500 mg Documented by: Alprazolam (Alprazolam 0.5 Mg Tablet) 0.5 mg PO TID PRN PRN PRN Reason: ANXIETY Last Admin: 10/12/20 04:16 Dose: 0.5 mg Documented by: Ceftriaxone Sodium (Rocephin) 1 gm in 50 mls @ 100 mls/hr IV Q12 [facility] Last Infusion: 10/13/20 23:45 Dose: Infused Documented by: Sodium Chloride () 250 mls @ 15 mls/hr IV .[id number] PRN PRN Reason: Saline Flush Melatonin (Melatonin 3 Mg Tablet) 3 mg PO QHS PRN PRN PRN Reason: INSOMNIA Last Admin: 10/12/20 21:19 Dose: 3 mg Documented by: Metoprolol Tartrate (Metoprolol Tartrate 5 Mg/5 Ml Vial) 2.5 mg IV Q6H PRN PRN PRN Reason: Tachycardia Ondansetron HCl (Ondansetron 4 Mg/2 Ml Vial) 4 mg IV Q8H PRN PRN PRN Reason: NAUSEA/VOMITING Pantoprazole Sodium (Pantoprazole Sodium 40 Mg Tablet) 40 mg PO BID [facility] Last Admin: 10/14/20 08:25 Dose: 40 mg Documented by: Prednisone (Prednisone 5 Mg Tablet) 2.5 mg PO TIDCM [facility] Last Admin: 10/14/20 11:29 Dose: Not Given Documented by: Senna/Docusate Sodium (Senna/Docusate Sodium 1 Tablet) 2 tablet PO BID PRN PRN PRN Reason: Constipation Sevelamer Carbonate (Sevelamer Carbonate 800 Mg Tablet) 2,400 mg PO TIDCM [facility] Last Admin: 10/14/20 11:29 Dose: Not Given Documented by: Sodium Chloride (0.9% Saline Lock 10 Ml Syringe) 10 - 40 ml IV UD PRN PRN Reason: SALINE FLUSH Last Admin: 10/12/20 12:42 Dose: 20 ml Documented by: Sucralfate (Sucralfate 1 Gm Tablet) 1 gm PO 1HR_ACHS [facility] Last Admin: 10/14/20 11:29 Dose: Not Given Documented by: Discharge Diet: Low fat/ Low Cholesterol Discharge Activity: Return to Normal Activity Weight Bearing Status: Weight bearing as tolerated Call your doctor if you observe: Fever of 101 or Higher, Shortness of breath, Dizziness, Fainting spells, Swelling in the ankles Home Medications: Medications to take at Discharge Sevelamer Carbonate 3 tab PO TIDCM 10/29/19 Alprazolam [Xanax] 0.5 mg PO TID PRN PRN 06/23/20 Prednisone 2.5 mg PO TID 06/23/20 Acetaminophen [Tylenol] 500 mg PO Q6H PRN PRN 09/23/20 Pantoprazole Sodium [Protonix] 40 mg PO BID #60 tab 09/26/20 Diphenoxylate/Atrop [Lomotil] 1 tab PO BID PRN PRN #6 tab 09/28/20 Indomethacin 25 mg PO TID 10/11/20 Sucralfate [Carafate] 1 gm PO 4X/DAY 10/11/20 Ciprofloxacin HCl 500 mg PO BID #10 tab 10/14/20 Loperamide HCl [Loperamide] 2 mg PO Q6H PRN PRN #30 tab 10/14/20 Metoprolol(XL)Succ [Toprol Xl (Beta Azra)] 12.5 mg PO DAILY #30 tab 10/14/20 Following Prescriptions Were Given to Patient: Ciprofloxacin HCl 500 mg PO BID #10 tab Transmission Status: Received by [facility] Loperamide HCl [Loperamide] 2 mg PO Q6H PRN PRN #30 tab PRN Reason: Diarrhea/Loose Stools Transmission Status: Received by [facility] Metoprolol(XL)Succ [Toprol Xl (Beta Azra)] 12.5 mg PO DAILY #30 tab Transmission Status: Received by [facility] Primary Care Physician: Jabier Arboleda DO [Primary Care Provider] - Please follow up with your Primary Care Physician in: 1-2 weeks Please Follow Up With: Zach Chaves MD When: 2-3 weeks Please Follow Up With: Gabriela Franks MD When: 1-2 weeks Patient Instructions: ED Hematuria, ED Urinary Retention, Female Medical Necessity - Tobacco Use Smoking Status: Never smoker Meaningful Use Info Meaningful Use Diagnoses (Choose all that apply): None applicable Inpatient E&M: [address] [facility]
[2020-10-14] MEDS: Heparin 10,000 UNITS/10 ML Vial IV (14:57)
--- NOTE | 2020-10-14 15:18 | CASEMGMT ---
This RN CM to room to f/u on discharge plan and pt states no need for any HHC/OP therapy at this time but would like more exercise information sheets and therapy updated at this time. Pt/ voice no further questions/concerns/needs at this time. SStaten BELKYS CM
--- NOTE | 2020-10-14 15:24 | DIALYSIS ---
Hemodialysis x 3.75hrs completed. -1500ml off. Stable t/o. CVC closed with heparin to each lumen fill volume. Report to Coty RIZVI.
[2020-10-14] MEDS: Metoprolol(XL)Succ 25 MG Tablet 12.5 MG PO (16:16)
--- NOTE | 2020-10-15 12:11 | CASEMGMT ---
RN CM Discharge Follow-Up Phone Call. Lace: 15 Strata: 4 Discharge Date: 10/14/20 Adm Dx: Severe Sepsis, Hematuria Attempted discharge f/u phone call. No answer. Non-identifying VM left for return call if there are any questions/concerns/needs. Phone number to this RN CM provided. Iwona STOREYN RN CM
--- NOTE | 2020-10-15 14:14 | CASEMGMT ---
D/C summary faxed to [facility] at this time. Sheila RIZVI CM
== END 2020-10-14 18:14 | disposition home or self-care (01) | DRG 871 ==
LOC: ED 21:26 → ICU 22:50 → MS3 10-13 13:25 → PCU 10-13 15:47
PROVIDERS: Internal Medicine Critical Care Medicine; Admitting Provider Hospitalist; Emergency Provider Emergency Medicine; PCP Family Medicine; Visit Provider Student in an Organized Health Care Education/Training Program
DX: A41.81 Sepsis due to Enterococcus (principal); N18.6 End stage renal disease; N39.0 Urinary tract infection, site not specified; I13.2 Hypertensive heart and chronic kidney disease with heart failure and with stage 5 chronic kidney disease, or end stage renal disease; I50.32 Chronic diastolic (congestive) heart failure; N04.9 Nephrotic syndrome with unspecified morphologic changes; A04.72 Enterocolitis due to Clostridium difficile, not specified as recurrent; D62 Acute posthemorrhagic anemia; E85.89 Other amyloidosis; E87.5 Hyperkalemia; B95.2 Enterococcus as the cause of diseases classified elsewhere; R65.20 Severe sepsis without septic shock; R31.0 Gross hematuria; I25.2 Old myocardial infarction; M06.9 Rheumatoid arthritis, unspecified; D63.1 Anemia in chronic kidney disease; D47.3 Essential (hemorrhagic) thrombocythemia; F41.9 Anxiety disorder, unspecified; K27.9 Peptic ulcer, site unspecified, unspecified as acute or chronic, without hemorrhage or perforation; K64.9 Unspecified hemorrhoids; I48.91 Unspecified atrial fibrillation; I95.9 Hypotension, unspecified; Z99.2 Dependence on renal dialysis; Z79.899 Other long term (current) drug therapy
CPT/HCPCS: 36415; 51702; 80048; 80053; 80076; 81001; 82977; 83605; 83735; 85014; 85018; 85025; 85610; 86850; 86900; 86901; 86920; 87040; 87077; 87086; 87088; 87186; 90937; 93005; 97162; 97166; 99285; J7030; J7040; J7050; P9016; A4216; G0257; J2405; J3490; Q5106

== ENCOUNTER 2020-11-29 16:01 | Emergency (ER) | payer OTHER, SELFPAY ==
[2020-10-11 23:31] VITALS: BMI 27.3
[2020-11-29] VITALS (16 sets, daily range): BP systolic 70–96; BP diastolic 43–61; PULSE 88–145; RESP 13–24; TEMP 35.2–36.2; O2SAT 94–100; BMI 29.6
--- NOTE | 2020-11-29 16:08 | EKG12_ITS ---
Test Reason : HYPOGLYCEMIA Blood Pressure : / mmHG Vent. Rate : 092 BPM Atrial Rate : 092 BPM P-R Int : 154 ms QRS Dur : 102 ms QT Int : 422 ms P-R-T Axes : 077 -57 123 degrees QTc Int : 521 ms Sinus rhythm with Fusion complexes and Premature atrial complexes Left anterior fascicular block Cannot rule out Anterior infarct , age undetermined T wave abnormality, consider lateral ischemia Prolonged QT Abnormal ECG Confirmed by RADHA LOZANO, TIMOTHY ([id number]), purchase request editor WHIT GRAHAM ([id number]) on 11/30/2020 2:27:29 PM Referred By: JESES Confirmed By:TIMOTHY GARCIA MD
--- NOTE | 2020-11-29 16:09 | CT_ITS ---
STUDY: CT BRAIN WITHOUT CONTRAST REASON FOR EXAM: Female, 65 years old. Altered mental status RADIATION DOSAGE (If Supplied By Facility): CTDIvol = ( 44.99 ) mGy, DLP = ( 779.24 ) mGycm TECHNIQUE: Transaxial CT imaging of the brain was performed without administration of intravenous contrast material. Individualized dose optimization techniques were used for this CT. COMPARISON: 06 September 2019 FINDINGS: Brain parenchyma is without focal lesions, mass effect, acute intracranial hemorrhage, extra parenchymal fluid collections, hydrocephalus or herniation. The skull is intact. CT/Brain/Head without Contrast IMPRESSION: 1. Normal CT brain. Electronically Signed: Stephan Kessler MD at 17:50 EDT Tel , Service support ,
--- NOTE | 2020-11-29 16:10 | ED.DCSUM_ITS ---
History of Present Illness Chief Complaint: Alt LOC Narrative: This patient is a 65-year-old female with a history of end-stage renal disease on hemodialysis. reports that she has had increasing weakness over the past 3 days. She has had difficulty ambulating without assistance. She did not feel well yesterday with generalized malaise. She stopped dialysis about 30 minutes before usual completion. Today she has been progressively less responsive and lethargic. She also has had diarrhea. As far as is aware no fevers cough difficulty breathing vomiting. She has not been complaining of any pain. History is limited due to the patient's lethargy and history is obtained from EMS and the . EMS was called due to altered mental status. Initial blood glucose was 29. She was difficult IV access so she was initially given oral glucagon. Once an IV was established patient was given a half of an amp of D50. Past Medical History - Allergies and Home Meds Allergies/Adverse Reactions: Allergies No Known Allergies Allergy (Verified 11/29/20 16:04) Primary Care Physician: Jabier Arboleda DO [Primary Care Provider] - Past Medical History: - - End-stage renal disease on hemodialysis, denies history of ID stroke or diabetes Surgical History: appendectomy, tonsillectomy, - - Left forearm AV fistula; tubal ligation Smoking Status: Never smoker - Family History Paternal Family History: Reports: Diabetes, Heart Disease, - Maternal Family History: Reports: - - Denies known maternal medical history including cardiac history. Review of Systems ROS: Unable to Obtain Physical Exam Vital Signs/Narrative: Vital Signs Temp Pulse Resp BP Pulse Ox 11/29/20 16:04 97.1 F L 93 14 70/45 L 94 11/29/20 16:01 97.1 F L 93 16 70/45 L 94 Inital Vital Signs reviewed: Yes General: Well nourished, - - Lethargic Head: Normocephalic ENT: Moist mucous membranes Neck: Supple Cardiovascular: Regular rate, Regular rhythm Respiratory: No distress, CTA bilaterally, - - Clear breath sounds, no rales, rhonchi, wheezes, dialysis catheter noted at the right upper chest Abdomen: Soft, Nontender, Nondistended Extremities: - - Patient has 2+ pitting symmetric lower extremity edema, patient has asymmetric edema of the right upper extremity Skin: Normal color, - - There is a 2 x 1 cm ulceration on the top of the left foot no discharge I do not appreciate surrounding erythema Neurological: - - Patient is lethargic but does not appear to have focal or lateralizing neurological deficit, she responds to voice or tactile stimuli with eye opening but does not follow commands and only groans does not answer any questions Diagnostic/Tx/Re-eval Impressions Brain CT 11/29/20 16:09 IMPRESSION: 1. Normal CT brain. Electronically Signed: Stephan Kessler MD at 17:50 EDT Tel , Service support , Chest/Abdomen/Pelvis CT 11/29/20 16:38 IMPRESSION: 1. Atelectasis favored over pneumonia in the right medial lung base. 2. Cardiac enlargement. 3. Small bowel obstruction with transition in the proximal ileum. 4. Question mild pancreatitis. Correlate with appropriate laboratory studies. 5. Findings suspicious for infectious or inflammatory sigmoid colitis. Electronically Signed: Erna Juares MD at 18:28 EDT Tel , Service support , Chest X-Ray 11/29/20 17:22 IMPRESSION: No acute findings. Electronically Signed: Erna Juares MD at 18:01 EDT Tel , Service support , Cervical Spine CT 11/29/20 17:32 IMPRESSION: No acute findings in the cervical spine. Electronically Signed: Sawyer Mejia MD ([facility]) at 18:44 EDT , Service support , 11/29/20 16:09 CT Head [Brain/Head without Contrast] [CT] Stat 11/29/20 16:38 CT Chest, Abd, Pel w/Contrast [CT] Stat 11/29/20 17:22 Chest 1 View (Portable) [RAD] Stat 11/29/20 17:32 CT Cervical [Spine Cervical without Contras] [CT] Stat Laboratory Results 11/29/20 11/29/20 11/29/20 16:06 16:06 16:06 WBC SECONDARY CONNECTOR ARMATURE Corrected WBC 0.9 L* RBC 2.21 L Hgb 6.6 L Hct 22.7 L MCV 102.7 H MCH 29.9 MCHC 29.1 L RDW Std Deviation 84.4 H RDW Coeff of Mika 22.5 H Plt Count 147 L MPV 12.3 H Immature Gran % (Auto) SECONDARY CONNECTOR ARMATURE Neut % (Auto) SECONDARY CONNECTOR ARMATURE Lymph % (Auto) SECONDARY CONNECTOR ARMATURE [place] % (Auto) SECONDARY CONNECTOR ARMATURE Eos % (Auto) SECONDARY CONNECTOR ARMATURE Baso % (Auto) SECONDARY CONNECTOR ARMATURE Absolute Neuts (auto) 0.7 L Absolute Lymphs (auto) 0.14 L Total Counted 100 Neutrophils % (Manual) 58 Band Neutrophils % 17 H Lymphocytes % (Manual) 16 L Monocytes % (Manual) 1 Eosinophils % (Manual) 1 Metamyelocytes % 4 H Myelocytes % 3 H Nucleated RBC % SECONDARY CONNE[employer] ARMATURE Nucleated RBCs/100 WBC 24 H Differential Comment PMN Diff Path Review May foll Platelet Estimate ADEQUATE Hypochromasia 2+ Poikilocytosis 2+ Anisocytosis 2+ Macrocytosis 1+ Target Cells 1+ Schistocytes 1+ PT 38.8 H INR 4.1 H* APTT 58.9 H Fibrinogen D-Dimer Quant (PE/DVT) Specimen Type Sample Site pH Bicarbonate Actual Total CO2 Base Excess O2 Saturation O2 % ABG pCO2 ABG pO2 Hebert Test O2 Delivery Device Sodium 132 L Potassium 4.3 Chloride 92 L Carbon Dioxide 28.0 Anion Gap 12 BUN 28 H Creatinine 2.79 H Estim Creat Clear Calc 17.36 Est GFR (MDRD) Af Amer 22 L Est GFR (MDRD) Non-Af 18 L BUN/Creatinine Ratio 10.0 Glucose 85 Lactic Acid Calcium 8.0 L Total Bilirubin 2.00 H AST 36 ALT 24 Alkaline Phosphatase 418 H Total Creatine Kinase Troponin I 0.182 H B-Natriuretic Peptide Total Protein 4.4 L Albumin 1.5 L Globulin 2.9 Albumin/Globulin Ratio 0.5 L Urine Color Urine Clarity Urine pH Ur Specific Constantine Urine Protein Urine Glucose (UA) Urine Ketones Urine Occult Blood Urine Nitrite Urine Bilirubin Urine Urobilinogen Ur Leukocyte Esterase Urine RBC Urine WBC Ur Squamous Epith Cells Urine Bacteria Urine Mucus POC Glucose Blood Type Antibody Screen Crossmatch 11/29/20 11/29/20 11/29/20 16:06 16:06 16:06 WBC Corrected WBC RBC Hgb Hct MCV MCH MCHC RDW Std Deviation RDW Coeff of Mika Plt Count MPV Immature Gran % (Auto) Neut % (Auto) Lymph % (Auto) [place] % (Auto) Eos % (Auto) Baso % (Auto) Absolute Neuts (auto) Absolute Lymphs (auto) Total Counted Neutrophils % (Manual) Band Neutrophils % Lymphocytes % (Manual) Monocytes % (Manual) Eosinophils % (Manual) Metamyelocytes % Myelocytes % Nucleated RBC % Nucleated RBCs/100 WBC Differential Comment Diff Path Review Platelet Estimate Hypochromasia Poikilocytosis Anisocytosis Macrocytosis Target Cells Schistocytes PT INR APTT Fibrinogen D-Dimer Quant (PE/DVT) Specimen Type Sample Site pH Bicarbonate Actual Total CO2 Base Excess O2 Saturation O2 % ABG pCO2 ABG pO2 Hebert Test O2 Delivery Device Sodium Potassium Chloride Carbon Dioxide Anion Gap BUN Creatinine Estim Creat Clear Calc Est GFR (MDRD) Af Amer Est GFR (MDRD) Non-Af BUN/Creatinine Ratio Glucose Lactic Acid 6.3 H* Calcium Total Bilirubin AST ALT Alkaline Phosphatase Total Creatine Kinase 96 Troponin I B-Natriuretic Peptide > 5000.0 H Total Protein Albumin Globulin Albumin/Globulin Ratio Urine Color Urine Clarity Urine pH Ur Specific [place] Urine Protein Urine Glucose (UA) Urine Ketones Urine Occult Blood Urine Nitrite Urine Bilirubin Urine Urobilinogen Ur Leukocyte Esterase Urine RBC Urine WBC Ur Squamous Epith Cells Urine Bacteria Urine Mucus POC Glucose Blood Type Antibody Screen Crossmatch 11/29/20 11/29/20 11/29/20 16:32 16:40 16:45 WBC Corrected WBC RBC Hgb Hct MCV MCH MCHC RDW Std Deviation RDW Coeff of Mika Plt Count MPV Immature Gran % (Auto) Neut % (Auto) Lymph % (Auto) [place] % (Auto) Eos % (Auto) Baso % (Auto) Absolute Neuts (auto) Absolute Lymphs (auto) Total Counted Neutrophils % (Manual) Band Neutrophils % Lymphocytes % (Manual) Monocytes % (Manual) Eosinophils % (Manual) Metamyelocytes % Myelocytes % Nucleated RBC % Nucleated RBCs/100 WBC Differential Comment Diff Path Review Platelet Estimate Hypochromasia Poikilocytosis Anisocytosis Macrocytosis Target Cells Schistocytes PT INR APTT Fibrinogen 471 H D-Dimer Quant (PE/DVT) 3.44 H* Specimen Type Sample Site pH Bicarbonate Actual Total CO2 Base Excess O2 Saturation O2 % ABG pCO2 ABG pO2 Hebert Test O2 Delivery Device Sodium Potassium Chloride Carbon Dioxide Anion Gap BUN Creatinine Estim Creat Clear Calc Est GFR (MDRD) Af Amer Est GFR (MDRD) Non-Af BUN/Creatinine Ratio Glucose Lactic Acid Calcium Total Bilirubin AST ALT Alkaline Phosphatase Total Creatine Kinase Troponin I B-Natriuretic Peptide Total Protein Albumin Globulin Albumin/Globulin Ratio Urine Color Brown Urine Clarity Turbid Urine pH 8.0 Ur Specific [place] 1.020 Urine Protein 500 H Urine Glucose (UA) Normal Urine Ketones 5 H Urine Occult Blood 150 H Urine Nitrite Negative Urine Bilirubin Negative Urine Urobilinogen Normal Ur Leukocyte Esterase Negative Urine RBC > 100 SEEN Urine WBC >100 SEEN Ur Squamous Epith Cells 0 SEEN Urine Bacteria 0 SEEN Urine Mucus 0 SEEN POC Glucose Blood Type A POSITIVE Antibody Screen NEGATIVE Crossmatch See Detail 11/29/20 11/29/20 11/29/20 16:48 17:57 19:44 WBC Corrected WBC RBC Hgb Hct MCV MCH MCHC RDW Std Deviation RDW Coeff of Mika Plt Count MPV Immature Gran % (Auto) Neut % (Auto) Lymph % (Auto) [place] % (Auto) Eos % (Auto) Baso % (Auto) Absolute Neuts (auto) Absolute Lymphs (auto) Total Counted Neutrophils % (Manual) Band Neutrophils % Lymphocytes % (Manual) Monocytes % (Manual) Eosinophils % (Manual) Metamyelocytes % Myelocytes % Nucleated RBC % Nucleated RBCs/100 WBC Differential Comment Diff Path Review Platelet Estimate Hypochromasia Poikilocytosis Anisocytosis Macrocytosis Target Cells Schistocytes PT INR APTT Fibrinogen D-Dimer Quant (PE/DVT) Specimen Type ART Sample Site R Brach pH 7.40 Bicarbonate Actual 27.2 H Total CO2 29 Base Excess 2 O2 Saturation 95 O2 % 21 ABG pCO2 43.7 ABG pO2 75 Hebert Test Positive O2 Delivery Device Room Air Sodium Potassium Chloride Carbon Dioxide Anion Gap BUN Creatinine Estim Creat Clear Calc Est GFR (MDRD) Af Amer Est GFR (MDRD) Non-Af BUN/Creatinine Ratio Glucose Lactic Acid Calcium Total Bilirubin AST ALT Alkaline Phosphatase Total Creatine Kinase Troponin I B-Natriuretic Peptide Total Protein Albumin Globulin Albumin/Globulin Ratio Urine Color Urine Clarity Urine pH Ur Specific [place] Urine Protein Urine Glucose (UA) Urine Ketones Urine Occult Blood Urine Nitrite Urine Bilirubin Urine Urobilinogen Ur Leukocyte Esterase Urine RBC Urine WBC Ur Squamous Epith Cells Urine Bacteria Urine Mucus POC Glucose 50 L 28 L* Blood Type Antibody Screen Crossmatch - Medical Decision Making Blood sugar rechecked on arrival and is 69. She was given an additional one half amp of D50. At this time she appears to be protecting her airway and although lethargic respond to voice or tactile stimuli. He underwent the above diagnostic evaluation. She was noted to have bruising diffusely on her back torso arms and legs. did note that she had multiple falls recently. Therefore she was sent for imaging including CT of the head cervical spine chest abdomen and pelvis. No acute traumatic injuries were identified although she had findings concerning for small bowel obstruction. A Rivas catheter was placed and was grossly bloody. Nursing also reported melenic stool. I did return and do a rectal examination which showed brown stool but nursing reported to the previous stool has been dark black. This is concerning for DIC. Her labs are notable for elevated D-dimer and fibrinogen. Her platelets are 147 however this is a significant decrease from previously as she previously had thrombocytosis with platelets of roughly 600. Urine also showed greater than 100 WBCs and greater than 100 RBCs. Her presentation is most consistent with shock and DIC. She is also fluid overloaded with a BNP of greater than 5000 and edema. She was given IV fluids IV Zosyn. Her hemoglobin returned at 6.6. After consent from 2 units of packed red blood cells were ordered. After return of her full diagnostic evaluation I discussed with the the nature of her critical illness and discuss goals of care. Family expressed that patient would not want chest compressions or intubations or any aggressive measures. Ultimately the decision was made to make the patient DNR comfort care only and focus on comfort measures. Hospice was consulted. Patient was enrolled in hospice and will be discharged home with hospice care. I did write prescriptions for oxycodone and Ativan for tonight. - Critical Care Time Critical care time (excluding procedures): 30-74 minutes ED Disposition - Plan for ED Patient: Disposition: Home or Assisted Living Diagnosis: Septic shock, DIC (disseminated intravascular coagulation), SBO (small bowel obstruction), Blood loss anemia, ESRD (end stage renal disease) Prescriptions: Lorazepam [Ativan] 1 mg PO Q6H PRN #8 tablet PRN Reason: Agitation Prescription Printed Oxycodone [Oxyir] 5 mg PO Q4H PRN PRN #8 tab PRN Reason: Pain/Inflammation Prescription Printed Referrals: Jabier Arboleda DO [Primary Care Provider] - Additional Instructions: Nicky was found to be in septic shock and DIC. She has a severe infection, possible bowel blockage, and a disorder that is causing her to bleed. After discussion with family we made the decision to focus on comfort measures and Nicky was enrolled in hospice. I did write prescriptions for pain or agitation for tonight until hospice can provide further medications.
[2020-11-29 16:28] LABS: Hematocrit 22.7 % (37-47); Mean Corp Hgb Conc 29.1 g/dL (32-36); Mean Corpuscular Hgb 29.9 pg (27.0-32.0); Mean Corpuscular Volume 102.7 fL (81-99); Mean Platelet Vol. 12.3 fl (6.2-12.0); POSITIVE COUNT YES; POSITIVE DIFFERENTIAL YES; POSITIVE MORPHOLOGY YES; Platelet Count 147 K/mm3 (150-450); RBC Distribution Width CV 22.5 % (11.6-14.6); RBC Distribution Width SD 84.4 fl (35.1-43.9); Red Blood Count 2.21 M/mm3 (4.2-5.4)
[2020-11-29 16:32] LABS: Prothrombin Time (Protime)PT. 38.8 SECONDS (11.7-14.9)
[2020-11-29 16:33] LABS: Partial Thromboplast Time 58.9 Seconds (24.1-36.2)
[2020-11-29 16:35] LABS: Hemoglobin 6.6 g/dL (12.0-15.0)
[2020-11-29 16:38] LABS: Bacteria 0 SEEN /hpf (None Seen); Mucous, Urine 0 SEEN /hpf (<or=2+); Squamous Epithelial Cells - UA 0 SEEN /hpf (5-10)
--- NOTE | 2020-11-29 16:38 | CT_ITS ---
STUDY: CT CHEST, ABDOMEN T PELVIS WITH CONTRAST REASON FOR EXAM: Female, 65 years old. Falls, anemia, altered mental status RADIATION DOSAGE (If Supplied By Facility): CTDIvol = ( 19.10 ) mGy, DLP = ( 1517.50 ) mGycm TECHNIQUE: Transaxial imaging was performed following intravenous administration of IV 75mL [id number]. Individualized dose optimization techniques were used for this CT. COMPARISON: Abdomen pelvis 09/23/2020, CTA chest 07/02/2020. FINDINGS: CT CHEST: Moderate cardiac enlargement. The aorta is normal in caliber. No aneurysm or dissection. There is no mediastinal mass or adenopathy. There is no hilar or axillary adenopathy. There is no evidence of pulmonary embolus. There is no pleural effusion. Atelectasis versus early pneumonia in the right medial lung base. Nodular scarring in the right upper lobe. There is no osseous abnormality. CT ABDOMEN AND PELVIS: 1.7 cm hepatic cyst. Multiple subcentimeter low-attenuation lesions, too small to characterize. The gallbladder is distended. Common duct is not dilated. Splenic calcifications consistent with old granulomatous disease. Trace stranding around the head of the pancreas. No organized collection. Pancreas is otherwise unremarkable. The adrenal glands are normal. The kidneys are unremarkable. No stones or hydronephrosis. The aorta is normal in caliber. There is no free fluid, free air or organized collection. Multiple dilated loops of small bowel with gradual transition in the proximal ileum. Distal ileum is decompressed. Colon is normal in caliber to decompressed. Mild wall thickening of the sigmoid colon. Diverticulosis with no acute diverticulitis. Urinary bladder is catheterized and decompressed. Normal abdominal wall. Normal osseous structures. CT/CT Chest, Abd, Pel w/Contrast IMPRESSION: 1. Atelectasis favored over pneumonia in the right medial lung base. 2. Cardiac enlargement. 3. Small bowel obstruction with transition in the proximal ileum. 4. Question mild pancreatitis. Correlate with appropriate laboratory studies. 5. Findings suspicious for infectious or inflammatory sigmoid colitis. Electronically Signed: Erna Juares MD at 18:28 EDT Tel , Service support ,
[2020-11-29 16:41] LABS: ALB/GLOB Ratio 0.5 RATIO (0.9-2.4); AST(SGOT) 36 U/L (15-37); Alanine Aminotransfer ALT/SGPT 24 U/L (13-56); Albumin, Serum 1.5 g/dL (3.2-5.0); Alkaline Phosphatase 418 U/L (45-117); Anion Gap 12 (5-15); BUN 28 mg/dL (7-18); Chloride 92 mmol/L (98-107); Creatinine, Serum 2.79 mg/dL (0.55-1.02); EST Glomerular Filtration Rate 18 mL/min (>60); Est Glom Filt Rate - Afr Amer 22 mL/min (>60); Estimated Creatinine Clearance 17.36 ml/min; Globulin 2.9 g/dL (2.2-4.2); Glucose 85 mg/dL (74-106); Potassium 4.3 mmol/L (3.5-5.1); Protein, Total 4.4 g/dL (6.4-8.2); Sodium Level 132 mmol/L (136-145)
[2020-11-29 16:42] LABS: Color, Urine Brown (Yellow); Glucose, Dipstick Normal (Normal); Ketone-Dipstick 5 mg/dl (Negative); Leukocyte Esterase-Dipstick Negative /ul (Negative); Nitrite-Dipstick Negative (Negative); Occult Blood-Urine 150 /ul (Negative); Protein-Dipstick 500 mg/dl (Negative); Urine Bilirubin Dipstick Negative (Negative); Urine Clarity Turbid (Clear); Urine Urobilinogen Normal (Normal)
[2020-11-29 16:43] LABS: International Normalized Ratio 4.1
[2020-11-29 16:44] LABS: Lactic Acid 6.3 mmol/L (0.4-1.9)
[2020-11-29 16:45] LABS: Differential Indicated MANUAL DIFF
[2020-11-29] MEDS: 0.9% Normal Saline 1,000 ML 999 ML IV (16:48)
[2020-11-29 16:54] LABS: CPK Total, Creatine Kinase 96 U/L (26-192)
[2020-11-29 16:56] LABS: Allen Test Positive; Base Excess 2 mmol/L (-2 to +2); Bicarbonate 27.2 mmol/L (22-26); Blood Gas Specimen Type ART; FI02 21; O2 Delivery Device Room Air; PO2 75 mmHG (75-100); SITE R Brach; SO2 95 % (95-99); Total Carbon Dioxide 29 mmol/L; pCO2 43.7 mmHg (35-45)
[2020-11-29 16:58] LABS: Red Blood Cells-Urine > 100 SEEN /hpf (0-5); White Blood Cells >100 SEEN /hpf (0-5)
[2020-11-29 17:00] LABS: BNP,B-Type NATRIURETIC PEPTIDE > 5000.0 pg/mL (0-100)
--- NOTE | 2020-11-29 17:22 | RAD_ITS ---
STUDY: X-RAY CHEST REASON FOR EXAM: Female, 65 years old. Altered mental status, hypotension TECHNIQUE: Single AP portable view of the chest. COMPARISON: 07/02/2020. FINDINGS: Dual lumen catheter is unchanged in position. The lungs are clear and expanded. There is no demonstrated pleural abnormality. There is mild cardiac enlargement. Normal mediastinum and christine. Normal visualized pulmonary arteries. Normal visualized aortic arch and descending thoracic aorta. Bilateral reverse shoulder arthroplasties. Mild thoracic spondylosis. Soft tissues and bony structures are otherwise unremarkable. RAD/Chest 1 View (Portable) IMPRESSION: No acute findings. Electronically Signed: Erna Juares MD at 18:01 EDT Tel , Service support ,
[2020-11-29 17:27] LABS: Nucleated Red Bld Cells,Manual 24 % (0-5)
[2020-11-29 17:28] LABS: Scan Smear per Review Criteria MANUAL DIFF
--- NOTE | 2020-11-29 17:32 | CT_ITS ---
EXAM: CT CERVICAL SPINE WITHOUT INTRAVENOUS CONTRAST CLINICAL INDICATION: Fall TECHNIQUE: Helically acquired images were obtained of the cervical spine without intravenous contrast. 2D reformatted images were reviewed. This CT exam was performed using one or more of the following dose reduction techniques: automated exposure control, adjustment of the mA and/or kV according to patient size, and/or use of iterative reconstruction technique. This report was created using [employer] report generation technology. COMPARISON: None. FINDINGS: VERTEBRAE: Multilevel anterior spondylosis. No fracture. No traumatic subluxation. No discrete lytic or blastic abnormality. Normal alignment. Normal craniocervical junction and cervicothoracic junction. DISCS/SPINAL CANAL/NEURAL FORAMINA: Disc space narrowing at multiple levels, particularly at C5-C6 and C6-C7. Multilevel bilateral facet arthropathy causing foraminal narrowing most evident at C5-C6. SOFT TISSUES: Unremarkable. No prevertebral soft tissue swelling. LYMPH NODES: Unremarkable. No cervical adenopathy. LUNG APICES: Unremarkable as visualized. Clear. TUBES, LINES AND DEVICES: Right jugular dialysis catheter. CT/Spine Cervical without Contras IMPRESSION: No acute findings in the cervical spine. Electronically Signed: Sawyer Mejia MD ([place]) at 18:44 EDT , Service support ,
[2020-11-29 17:33] LABS: Corrected WBC 0.9 K/mm3 (4.4-11.0)
[2020-11-29 17:34] LABS: Absolute Lymphocyte Count 0.14 X10^3/uL (0.83-4.51)
[2020-11-29 17:35] LABS: Absolute Neutrophil Count 0.7 X10^3/uL (2.0-7.7); Neutrophil-Segmented 58 % (47-70); Total Cells Counted 100 (MANUAL DIFF)
[2020-11-29 17:36] LABS: Eosinophil 1 % (0-5); Lymphocyte 16 % (19-41); Metamyelocyte 4 % (0-1); Monocyte 1 % (0-10); Myelocyte 3 % (0-0); Neutrophil-Band 17 % (0-5)
[2020-11-29 17:38] LABS: Platelet Estimate ADEQUATE (ADEQ)
[2020-11-29 17:39] LABS: Anisocytosis 2+; Hypochromasia 2+; Schistocytes 1+; Target Cells 1+
[2020-11-29 17:40] LABS: Macrocytosis 1+
[2020-11-29 17:41] LABS: Poikilocytosis 2+
[2020-11-29] MEDS: dilTIAZem 25 MG/5 ML Vial 20 MG IV BOLUS (17:48)
[2020-11-29] MEDS: Dextrose 50%-Water 25 GM/50 ML DISP.SYRIN IV (18:13)
[2020-11-29 18:19] LABS: Fibrinogen 471 mg/dl (203-444)
[2020-11-29 18:24] LABS: D-Dimer Quantitative (DVT/PE) 3.44 FEU/ug/m (0.27-0.49)
[2020-11-29 18:25] LABS: Bedside Glucose 50 mg/dL (70-110)
--- NOTE | 2020-11-29 18:35 | ED.RN ---
Numerous attempts for additional iv access failed; md johns aware.
[2020-11-29 19:51] LABS: Bedside Glucose 28 mg/dL (70-110)
--- NOTE | 2020-11-29 19:55 | ED.RN ---
dr aware of repeat blood sugar of 28, no new orders at this time
--- NOTE | 2020-11-29 20:06 | ED.RN ---
[facility]FERRAL
[2020-11-29 20:14] LABS: Reflex Lactate? Y
--- NOTE | 2020-11-29 21:38 | ED.RN ---
pt now on hospice status, blood stopped at this time
[2020-11-29] MEDS: fentaNYL 100 MCG/2 ML Ampul 50 MCG IV (21:44)
--- NOTE | 2020-11-29 21:50 | ED.RN ---
hospice in with the family working on getting the pt to go home with the family., medicated for pain, pt moaning in pain occationally and in obviouse pain
--- NOTE | 2020-11-29 23:19 | ED.RN ---
Received +blood cultures results from lab. Results were given to [facility] specialist.
[2020-11-30 07:13] LABS: Bedside Glucose 69 mg/dL (70-110)
[2020-11-30 12:22] LABS: Pathologist Review Reviewed
== END 2020-11-29 23:54 | disposition home or self-care (01) ==
PROVIDERS: Emergency Provider Emergency Medicine; PCP Family Medicine
DX: A41.9 Sepsis, unspecified organism (principal); R65.21 Severe sepsis with septic shock; D65 Disseminated intravascular coagulation [defibrination syndrome]; K56.609 Unspecified intestinal obstruction, unspecified as to partial versus complete obstruction; D50.0 Iron deficiency anemia secondary to blood loss (chronic); N18.6 End stage renal disease; Z99.2 Dependence on renal dialysis; L97.529 Non-pressure chronic ulcer of other part of left foot with unspecified severity; Z79.899 Other long term (current) drug therapy
CPT/HCPCS: 36600; 51702; 70450; 71045; 71260; 72125; 74177; 80053; 81001; 82550; 82803; 82962; 83605; 83880; 84484; 85025; 85379; 85384; 85610; 85730; 86850; 86900; 86901; 86920; 86922; 87040; 87077; 87086; 87088; 87186; 93005; 96361; 96365; 96375; 99285; J7030; J7040; P9016; Q9967; A4216; J7799